=== PATIENT | female | born 1945 | race Caucasian/White ===

== ENCOUNTER → 2016-12-04 | Outpatient (CLI) | payer OTHER ==
[~2016-12-04] MED LIST: ACET-1257 PO; ACET-1311 PO; ASPEC81 PO; ASPI81TA28 PO; B-COTAB18 PO; BACL0.05 IT; CHOL20007 PO; DULO60CA44 PO; FERR1TAB24 PO; FEXO1TAB49 PO; FLUT0.15 NAE; GABA-113 PO; GLUCTAB32 PO; HYDR-3983 PO; KRIL1000 PO; LANS30CA12 PO; MELATAB2 PO; MORPHINE IR IT; MULT-506 PO; NABU750T PO; NICOTINE GUM PO; NRN100; ONDA8TAB6 PO; RXC5 PO; SIMV40TA4 PO; SNK PO; TRAZ50TA35 PO; [UNRECOGNIZED DRUG - CODE] IT
--- NOTE | 2016-12-04 16:41 | MAMMOGRAPHY REPORT ---
BILATERAL DIGITAL SCREENING MAMMOGRAM WITH CAD: 12/04/2016 CLINICAL HISTORY: Routine screening. Patient has no complaints. TECHNIQUE: Current study was also evaluated with a Computer Aided Detection (CAD) system. Bilatera l CC and MLO views were obtained. COMPARISON: Comparison is made to exams dated: 11/29/2015 mammogram, 11/21/2014 mammogram, 11/04/2012 mammogram - [facility], 02/03/2011 mammogram, and 03/15/2008 mammogram - [facility]. BREAST COMPOSITION: There are scattered areas of fibroglandular density in both breasts. FINDINGS: No suspicious masses, calcifications, or areas of architectural distortion are noted in e ither breast. There has been no significant interval change compared to prior exams. Bilateral eunice gn-appearing calcifications are not significantly changed. Nodular asymmetry in the left medial george ast is stable dating back to at least the 2010 exam. IMPRESSION: ACR BI-RADS CATEGORY 2: BENIGN There is no mammographic evidence of malignancy. A 1 year screening mammogram is recommended. The p atient will receive written notification of the results. Approximately 10% of breast cancers are not detected with mammography. A negative mammographic repor t should not delay biopsy if a clinically suggestive mass is present. Twyla Mejia M.D. ah/:12/04/2016 16:08:58 Size Mixer: Vika LYN(R)(M), [facility] letter sent: Normal 1/2 BI-RADS Code: ACR BI-RADS Category 2: Benign
== END | disposition home or self-care (01) ==
LOC: C.MAMM 15:24
PROVIDERS: ATTEND Internal Medicine
DX: Z12.31 Encounter for screening mammogram for malignant neoplasm of breast (principal)

== ENCOUNTER 2017-02-02 09:20 | Inpatient (IN) | payer OTHER ==
[2017-01-15 13:56] VITALS: BMI 28.0
--- NOTE | 2017-01-15 14:31 | PAT Medication Instructions ---
Service Date Jan 15, 2017. Current Home Medication List Acetaminophen (Tylenol), 650 MG PO Q6 Aspirin (Aspirin Ec), 81 MG PO QAM B-Complex Vitamins (Vitamin B Complex), 1 TAB PO QAM Baclofen (Lioresal Intrathecal), MCG IT DAILY Bupivacaine In Dextrose (Bupivacaine Spinal), 7.5 MG IT DAILY Cholecalciferol (Vitamin D3), 1 TAB PO QAM Duloxetine Hcl (Cymbalta), 120 MG PO QAM Ferrous Sulfate (Feosol), 1 TAB PO BID Fexofenadine Hcl (Denise Allergy), 1 TAB PO QAM Fluticasone Propionate (Nasal) (Flonase Allergy Relief), 1 SPRAY GUY QAM Gabapentin (Gabapentin), 100 BID Ovwipqysdro-Gfptnwsddpa-Cs Cho (Glucosamine Chondroitin &), 2 TABLETS PO QAM Hydrocodone/Acetaminophen 7.5MG/325MG ([place]view 7.5MG/325MG), 1 TAB PO Q4H PRN for prn Krill Oil (Krill Oil), 1 CAP PO QAM Lansoprazole (Prevacid), 30 MG PO QAM Melatonin (Melatonin Maximum Strengt), 1 TAB PO HS Multivitamin (Multivitamin), 1 TAB PO QAM Nabumetone (Nabumetone), 1 TAB PO BID Simvastatin (Zocor), 40 MG PO QPM Trazodone Hcl (Trazodone), 50 MG PO HS [Morphine Ir Soln], 1 DOSE IT DAILY [Nicotine Gum], 12-15 PIECE PO DAILY Medication Instructions For Your Scheduled Surgery - Continue as directed: Baclofen (Lioresal Intrathecal), MCG IT DAILY Bupivacaine In Dextrose (Bupivacaine Spinal), 7.5 MG IT DAILY [Morphine Ir Soln], 1 DOSE IT DAILY - Check with surgeon for instructions: Nabumetone (Nabumetone), 1 TAB PO BID - Hold the following medications 2 weeks prior to surgery: Krill Oil (Krill Oil), 1 CAP PO QAM Sgwktiroyap-Qfgpgihltyo-Pq Cho (Glucosamine Chondroitin &), 2 TABLETS PO QAM - Hold the following medications the morning of surgery: Multivitamin (Multivitamin), 1 TAB PO QAM Ferrous Sulfate (Feosol), 1 TAB PO BID Fexofenadine Hcl (Denise Allergy), 1 TAB PO QAM Cholecalciferol (Vitamin D3), 1 TAB PO QAM B-Complex Vitamins (Vitamin B Complex), 1 TAB PO QAM [Nicotine Gum], 12-15 PIECE PO DAILY - Take the following medications the morning of surgery with a sip of water: Gabapentin (Gabapentin), 100 BID Fluticasone Propionate (Nasal) (Flonase Allergy Relief), 1 SPRAY GUY QAM Lansoprazole (Prevacid), 30 MG PO QAM Duloxetine Hcl (Cymbalta), 120 MG PO QAM Hydrocodone/Acetaminophen 7.5MG/325MG ([place]view 7.5MG/325MG), 1 TAB PO Q4H PRN for prn (okay to take up to 4 hours prior to surgery if needed) Aspirin (Aspirin Ec), 81 MG PO QAM Acetaminophen (Tylenol), 650 MG PO Q6 - Take the following medications as scheduled the night before surgery: Trazodone Hcl (Trazodone), 50 MG PO HS Simvastatin (Zocor), 40 MG PO QPM Melatonin (Melatonin Maximum Strengt), 1 TAB PO HS Gabapentin (Gabapentin), 100 BID Ferrous Sulfate (Feosol), 1 TAB PO BID Hydrocodone/Acetaminophen 7.5MG/325MG ([place]view 7.5MG/325MG), 1 TAB PO Q4H PRN for prn Acetaminophen (Tylenol), 650 MG PO Q6 If you have any questions please call us at [phone] (Sandra Lu PA-C) or [phone] or [phone]
[2017-01-15 14:51] LABS: BASO ABS # 0.05 K/uL (0-0.2); COMPLETE YES; HEMATOCRIT 38.2 % (37-47); LYMPH % 21.3 %; LYMPH ABS # 1.07 K/uL (1.2-3.4); MEAN CELL VOLUME 91.8 fL (80-100); MEAN CORPUSCULAR HEMOGLOBIN 30.3 pg (25-34); MEAN PLATELET VOLUME 10.2 fL (7.4-10.4); MONO % 7.2 %; NEUT % 68.5 %; PLATELET COUNT 245 K/uL (130-400); RED BLOOD COUNT 4.16 M/uL (4.2-5.4); WHITE BLOOD COUNT 5.02 K/uL (4.8-10.8)
[2017-01-15 15:01] LABS: PROTHROMBIN TIME (PATIENT) 10.5 SECONDS (9.0-12.0)
--- NOTE | 2017-01-15 15:05 | DIAGNOSTIC IMAGING REPORT ---
CHEST 2 VIEWS ROUTINE HISTORY: Preop. COMPARISON: Chest 09/25/2015 FINDINGS: The lungs are clear. Cardiac silhouette is normal in size. No pleural effusions. No pneumothorax. Stable uterine trace of the right hemidiaphragm. Mild anterior wedging within the lower thoracic spine vertebral bodies is also unchanged. There is lumbar spine posterior fusion hardware which is partially visualized. IMPRESSION: No significant change compared to the prior study. No acute process. Electronically signed by: Abundio Ansari M.D. 01/15/2017 3:03 PM Dictated Date/Time: 01/15/2017 3:00 PM
[2017-01-15 15:09] LABS: BUN/CREATININE RATIO 23.9 (10-20); CREATININE 0.74 mg/dl (0.60-1.20); POTASSIUM 4.7 mmol/L (3.5-5.1)
[2017-01-15 15:12] LABS: URINE APPEARANCE CLEAR (CLEAR); URINE BILIRUBIN NEG (NEG); URINE COLOR YELLOW; URINE NITRITE NEG (NEG); URINE PH 7.5 (4.5-7.5); URINE SPECIFIC GRAVITY 1.019 (1.000-1.030); UROBILINOGEN NEG (NEG); ZZUR CULT IF INDIC CLEAN CATCH NO
[2017-01-15 15:15] LABS: MANUAL MICROSCOPIC REQUIRED? NO; REVIEW REQ? NO
--- NOTE | 2017-01-27 08:57 | HISTORY & PHYSICAL EXAMINATION ---
DATE OF ADMISSION: 02/02/2017 CHIEF COMPLAINT: Right hip pain. HISTORY OF PRESENT ILLNESS: Ms. Henry is a 71-year-old female with a history of pain in her right hip since October. The patient rates her pain at 9/10. She has pain with her daily activities. She has limited standing and walking tolerance. Pain is worse with weightbearing. The patient does use a walker to ambulate. She participates in a home exercise program as well as aqua therapy. She has failed conservative treatment and is scheduled for right hip replacement. PAST MEDICAL HISTORY: Spinal stenosis, hypercholesterolemia, anxiety, and a history of DVT, right lower extremity in 2001. She denies heart disease or diabetes. PAST SURGICAL HISTORY: Left hip in 2015; right knee in 2001; back surgery in 2005, 2006, and 2010; cholecystectomy in 1975, and cataract extraction, bilateral in 2000. SOCIAL HISTORY: The patient drinks 1-2 drinks per month. She quit smoking in 1991. She lives in a single-jignesh home. She lives alone and is retired. FAMILY HISTORY: Negative for DVT. MEDICATIONS: Denise 180 mg daily, aspirin 81 mg daily, vitamin B complex 1 capsule daily, duloxetine 60 mg 2 tablets daily, gabapentin 100 mg twice daily and 300 mg twice daily, glucosamine chondroitin 1 tablet daily, hydrocodone 7.5/300 mg p.r.n., iron capsule twice daily, Krill oil capsule daily, lansoprazole 30 mg daily, baclofen 22.21 mcg daily, melatonin 5 mg at bedtime, morphine sulfate IR pump, nabumetone 750 mg b.i.d., Nasonex 50 mcg 2 sprays each nostril, multivitamin 1 daily, simvastatin 40 mg daily, bowel prep p.r.n., trazodone 50 mg daily, Tylenol 500 mg p.r.n., and vitamin D 2000 units daily. ALLERGIES: SULFA AND LATEX. REVIEW OF SYSTEMS: See HPI. Ten other systems reviewed, all negative. PHYSICAL EXAMINATION: VITAL SIGNS: Height 5 feet 7 inches, weight 183 pounds, and BMI is 27. GENERAL: This is a well-developed and well-nourished female, who is alert and oriented x3. Mood and affect are appropriate. HEENT: Normocephalic and atraumatic. Mucous membranes are moist and intact. NECK: Supple without lymphadenopathy. HEART: Regular rate and rhythm. She does have a grade 2 systolic murmur. LUNGS: Clear to auscultation without wheezes or rhonchi. ABDOMEN: Soft and nontender. Bowel sounds are equal and active. EXTREMITIES: No ecchymosis, redness or warmth. Thigh and calf are soft and nontender. Log roll of the hip reproduces the pain in the groin. Range of motion is decreased. She is neurovascularly intact with +5/5 strength. X-RAY EXAMINATION: AP and lateral views show joint space narrowing and osteophyte formation. IMPRESSION: Degenerative joint disease, right hip. PLAN: The patient will be admitted for a right total hip arthroplasty. We will plan on aspirin for DVT prophylaxis. The patient will have [facility] for home physical therapy. She is on chronic narcotics and also has a pain pump. PCP is Dr. Gunner Garcia. JOSÉ LUIS
[~2017-02-02] VITALS: Ht 172.7 cm; Wt 83.1 kg
[2017-02-02] VITALS (8 sets, daily range): BP systolic 77–110; BP diastolic 54–83; PULSE 68–81; TEMP 36.5–36.9; O2SAT 93–100; Ht 172.7 cm; Wt 83.1 kg
[2017-02-02] MEDS: TRANEXAMIC ACID INJ 1,000 MG in SODIUM CHLORIDE 0.9% 100ML 100 ML IV SCH ×2 (06:30→11:52)
[~2017-02-02 09:20] MED LIST changes: -ACET-1257 PO; +ACETAMINOPHEN 500 MG TAB PO SCH; -ASPEC81 PO; +BUPIVACAINE 0.5 % 5 MG/1 ML PF 10ML VIAL ONE; +CEFAZOLIN 2000 MG/60 ML D5W 60 ML IV SCH; +DEXAMETHASONE 4 MG TAB PO SCH; +FAMOTIDINE 20 MG TAB PO SCH; -GABA-113 PO; +GABAPENTIN 300 MG CAP PO SCH; +LACTATED RINGER'S 1000ML 1,000 ML IV SCH; +LACTATED RINGER'S 1000ML 500 ML IV ONE; +LACTATED RINGER'S 1000ML IV SCH; +METOCLOPRAMIDE HCL 10 MG TAB PO SCH; -ONDA8TAB6 PO; +OXYCODONE HCL 10 MG TABCR (OXYCONTIN) PO SCH; +POLYMYXIN B SULFATE 100,000 UNITS in NSS 100ML IR SCH; +ROPIVACAINE 5MG/ML 30 ML 150 MG, BUPIVACAINE/EPINEPHR 0.5% MPF 30 ML, KETOROLAC TROMETH... INFIL SCH; -RXC5 PO; -SNK PO; +VANCOMYCIN INJ 400 MG in NSS 100ML IR SCH
[2017-02-02] MEDS ORDERED: MIDAZOLAM HCL 1 MG/ML 2ML VIAL ONE (10:10)
[2017-02-02] MEDS ORDERED: FENTANYL CITRATE INJ 50 MCG/1 ML 2 ML VIAL ONE ×2 (10:10→12:46)
[2017-02-02] MEDS ORDERED: ONDANSETRON INJ 2 MG/ML 2 ML VIAL ONE (10:10)
[2017-02-02] MEDS ORDERED: PROPOFOL IV EMULSION 10 MG/ML 20 ML VIAL IV ONE (10:10)
[2017-02-02] MEDS ORDERED: GABA-113 PO (10:10)
[2017-02-02] MEDS ORDERED: LIDOCAINE HCL 2% 2 ML VIAL (20MG/ML) ONE (10:10)
--- NOTE | 2017-02-02 11:15 | History & Physical Bridge Note ---
H&P Re-Evaluation Bridge Note: I have examined the patient, reviewed the History & Physical and in the interval since the performance of the History & Physical I have noted the following changes of clinical significance: No changes noted
[2017-02-02] MEDS ORDERED: BACITRACIN 50000 UNIT VIAL ONE (11:46)
[2017-02-02] MEDS ORDERED: ORTHO JOINT ANESTHETIC ONE (11:46)
[2017-02-02] MEDS ORDERED: POVIDONE-IODINE OP SOLN 30 ML BTL ONE (11:46)
[2017-02-02] MEDS ORDERED: HYDROmorphone INJ 2 MG/ML SYR/VIAL IV PRN (12:30)
[2017-02-02] MEDS ORDERED: LABETALOL HCL IV 5 MG/ML 20ML IV PRN (12:30)
[2017-02-02] MEDS ORDERED: KETOROLAC TROMETHAMINE 30 MG/ML VIAL IV. PRN (12:30)
[2017-02-02] MEDS ORDERED: PROMETHAZINE HCL INJ 6.25 MG in SODIUM CHLORIDE 0.9% 50ML 50 ML IV PRN (12:30)
[2017-02-02] MEDS ORDERED: ATROPINE SULFATE 0.1 MG/ML 5ML SYR IV PRN (12:30)
[2017-02-02] MEDS ORDERED: ONDANSETRON INJ 2 MG/ML 2 ML VIAL IV PRN ×2 (12:30→14:15)
[2017-02-02] MEDS ORDERED: GLYCOPYRROLATE INJ 0.2 MG/ML VIAL ONE (13:07)
[2017-02-02] MEDS ORDERED: ROCURONIUM BROMIDE 10 MG/ML 5 ML VIAL ONE (13:07)
[2017-02-02] MEDS ORDERED: NEOSTIGMINE METHYLSULFATE 5 MG/5 ML SYR ONE (13:07)
[2017-02-02] MEDS ORDERED: HYDROmorphone INJ 2 MG/ML SYR/VIAL ONE (13:07)
--- NOTE | 2017-02-02 14:03 | [facility] Post Operative Brief Note ---
Immediate Operative Summary Operative Date Feb 02, 2017. Pre-Operative Diagnosis Right hip degenerative joint disease Post-Operative Diagnosis Right hip degenerative joint disease Procedure(s) Performed Right total hip arthroscopy with anterior approach Surgeon Dr. Javi Masters Paper Cleaner Surgeon(s) Amy Mercado PA-C Estimated Blood Loss 150ML Findings SEVERE DZ Specimens A: Right femoral head Complication(s) None Disposition Recovery Room / PACU
[2017-02-02] MEDS ORDERED: ACETAMINOPHEN 325 MG TAB PO PRN (14:15)
[2017-02-02] MEDS ORDERED: ALUMINUM/MAGNESIUM/SIMETH (MAALOX MAX) 30 ML UDC PO PRN (14:15)
[2017-02-02] MEDS ORDERED: ZOLPIDEM TARTRATE 5 MG TAB PO PRN (14:15)
[2017-02-02] MEDS ORDERED: DiphenhydrAMINE HCL 50 MG/ML VIAL IV PRN (14:15)
[2017-02-02] MEDS ORDERED: BISACODYL 10 MG SUPP PR PRN (14:15)
[2017-02-02] MEDS ORDERED: HYDROCODONE/ACETAMINOPHEN 7.5/325MG TAB PO PRN (14:15)
[2017-02-02] MEDS ORDERED: MAGNESIUM HYDROXIDE SUSP 30 ML UDC PO PRN (14:15)
[2017-02-02] MEDS ORDERED: METOCLOPRAMIDE HCL INJ 5 MG/ML 2 ML VIAL IV PRN (14:15)
[2017-02-02] MEDS ORDERED: SOD PHOSPHATE/SOD BIPHOSPHATE ENEMA 132 ML BTL PR PRN (14:15)
[2017-02-02] MEDS ORDERED: MoRPHine SULFATE 2 MG/ML CARP IV PRN (14:15)
[2017-02-02] MEDS ORDERED: TRAMADOL HCL 50 MG TAB PO PRN (14:15)
--- NOTE | 2017-02-02 14:20 | DIAGNOSTIC IMAGING REPORT ---
INTRAOPERATIVE RADIOGRAPH CLINICAL HISTORY: Right hip arthroplasty. Fluoroscopy time: 12 seconds. FINDINGS: A single spot fluoroscopic view of the right hip is presented. A bipolar right hip arthroplasty is in near-anatomic alignment. A single cortical lag screw transfixes the acetabular cup. There is no evidence of fracture on this fluoroscopic image. IMPRESSION: Intraoperative image from a right hip arthroplasty procedure as above. Electronically signed by: Danyel Means M.D. 02/02/2017 2:18 PM Dictated Date/Time: 02/02/2017 2:17 PM
[2017-02-02] MEDS ORDERED: HYDROmorphone INJ 1 MG/ML SYR ONE (14:37)
[2017-02-02] MEDS ORDERED: KETOROLAC TROMETHAMINE 30 MG/ML VIAL ONE (14:37)
--- NOTE | 2017-02-02 15:02 | DIAGNOSTIC IMAGING REPORT ---
RIGHT PELVIS/UNILATERAL HIP 1 VIEW CLINICAL HISTORY: Right hip arthroplasty COMPARISON: Pelvis radiograph June 16, 2016. FINDINGS: Alignment of the total right hip arthroplasty is anatomic. There is no right periprosthetic fracture or unexpected radiopaque foreign body. There is an acetabular screw. Surgical drain is in place. Alignment of the left hip arthroplasty is anatomic. There is a transverse lucency suggestive of a fracture with associated sclerosis and callus formation within the greater trochanter of the left femur. There is heterotopic ossification adjacent to the left hip arthroplasty. IMPRESSION: 1. Expected findings following total right hip arthroplasty. 2. Suspected subacute to chronic transverse nondisplaced fracture of the greater trochanter of the left femur. Anatomic alignment of left hip arthroplasty. Electronically signed by: Jacob Trejo M.D. 02/02/2017 3:01 PM Dictated Date/Time: 02/02/2017 2:59 PM
--- NOTE | 2017-02-02 15:16 | Anesthesiology Progress Note ---
Anesthesia Post Op Note Date & Time Feb 02, 2017 at 15:16 Vital Signs Pain Intensity: 3 Vital Signs Past 12 Hours Date Time Temp Pulse Resp B/P Pulse Ox O2 Delivery O2 Flow Rate FiO2 02/02/17 15:05 83 14 136/78 93 Nasal Cannula 2 02/02/17 14:55 80 14 141/88 98 Nasal Cannula 2 02/02/17 14:45 83 14 145/99 97 Nasal Cannula 2 02/02/17 14:35 84 14 146/86 98 Mask 8 02/02/17 14:28 36.5 80 14 151/74 98 Mask 8 02/02/17 09:48 36.7 73 20 106/83 95 Room Air Notes Mental Status: alert / awake / arousable, participated in evaluation Pt Amnestic to Procedure: Yes Nausea / Vomiting: adequately controlled Pain: adequately controlled Airway Patency, RR, SpO2: stable & adequate BP & HR: stable & adequate Hydration State: stable & adequate Anesthetic Complications: no major complications apparent
--- NOTE | 2017-02-02 15:28 | Anesthesiology Progress Note ---
Anesthesia Post Op Note Date & Time Feb 02, 2017 at 15:28 Vital Signs Pain Intensity: 5 Vital Signs Past 12 Hours Date Time Temp Pulse Resp B/P Pulse Ox O2 Delivery O2 Flow Rate FiO2 02/02/17 15:15 36.4 86 14 117/60 94 Nasal Cannula 2 02/02/17 15:05 83 14 136/78 93 Nasal Cannula 2 02/02/17 14:55 80 14 141/88 98 Nasal Cannula 2 02/02/17 14:45 83 14 145/99 97 Nasal Cannula 2 02/02/17 14:35 84 14 146/86 98 Mask 8 02/02/17 14:28 36.5 80 14 151/74 98 Mask 8 02/02/17 09:48 36.7 73 20 106/83 95 Room Air Notes Mental Status: alert / awake / arousable, participated in evaluation Pt Amnestic to Procedure: Yes Nausea / Vomiting: adequately controlled Pain: adequately controlled Airway Patency, RR, SpO2: stable & adequate BP & HR: stable & adequate Hydration State: stable & adequate Anesthetic Complications: no major complications apparent
--- NOTE | 2017-02-02 15:34 | OPERATIVE REPORT ---
DATE OF OPERATION: 02/02/2017 PREOPERATIVE DIAGNOSIS: Degenerative arthritis, right hip. POSTOPERATIVE DIAGNOSIS: Same. PROCEDURE: Right total hip replacement. SURGEON: mC Masters MD COMMISSIONING MANAGER: MAUDE Atwood. ANESTHESIA: Spinal. BLOOD LOSS: 150 mL. REPLACEMENT FLUIDS: 1900 mL crystalloid. DRAINS: Hemovac x1. CULTURES: None. COMPLICATIONS: None. COMPONENTS USED: Licona \T\ Nephew Anthology hip system: Acetabulum size 52, femur size 8 standard offset, femoral head -3, 36 mm. NOTE: Amy Mercado was present and assisted throughout due to the complicated nature of this case. She helped with preparation and setup, first assisted throughout and personally closed the fascial, subcutaneous and skin layers and applied the postoperative dressing. DESCRIPTION: Following satisfactory spinal, the patient was supine. The right leg was placed in the traction device and the left leg in the well-leg hudson. The leg was prepared with ChloraPrep and draped sterilely. Following a surgical time-out, an anterior approach was performed in the interval between the sartorius and tensor muscles. Circumflex femoral vessels were identified and ligated. An anterior capsulotomy was performed, exposing the arthritic femoral neck and head. The approach was somewhat difficult. The patient had an extremely thickened fascial layer and was quite scarred in. The circumflex vessels were ligated, the anterior capsulotomy was opened and the severely arthritic femoral neck and head were trimmed and removed. The acetabular self-retraining retractor was placed. Acetabular reaming was completed and under fluoroscopic guidance, a 52 shell was impacted into an anatomic position and secured with a dome screw. Local anesthetic was placed and after irrigation, the poly liner was placed. The femur was then placed in a position of external rotation, extension and adduction. Femoral canal was prepared to the templated size of an 8. A trial reduction with a -3 head showed anabaptism of leg lengths using fluoroscopic landmarks and good fit and fill of the proximal canal under fluoroscopy. The hip was dislocated. The trial component was removed. Final implant was placed and after irrigation, the hip reduced with fluoroscopy, confirming the position. Betadine soak was performed. After 5 minutes, the Betadine was irrigated. The capsule was closed with 1-0 Vicryl interrupted. A drain was placed. The fascia was closed with a running suture of 1 Vicryl, the subcutaneous tissues with 2-0 Vicryl and the skin with a running subcuticular stitch of 3-0 V-Loc. Dermabond and dry dressing were applied. The patient was returned to her bed in stable condition. I attest to the content of the Intraoperative Record and any orders documented therein. Any exceptio ns are noted below.
[2017-02-02] MEDS: OXYCODONE HCL IR 5 MG TAB (IMMEDIATE RELEASE) PO PRN ×2 (16:19→20:12)
[2017-02-02] MEDS: D5W AND 1/2NSS + 20MEQ KCL 1,000 ML IV SCH (17:28)
[2017-02-02] MEDS: SIMVASTATIN 40 MG TAB PO SCH (20:13)
[2017-02-02] MEDS: ASPIRIN 81 MG ECTAB PO SCH (20:13)
[2017-02-02] MEDS: SENNA 8.6 MG TAB PO SCH (20:14)
[2017-02-02] MEDS: KETOROLAC TROMETHAMINE 15 MG/ML VIAL IV. SCH (20:20)
[2017-02-02] MEDS: CEFAZOLIN IV 2,000 MG in DEXTROSE 5% 50ML 50 ML IV SCH (20:20)
[2017-02-02] MEDS ORDERED: TRANEXAMIC ACID INJ 1,000 MG in SODIUM CHLORIDE 0.9% 100ML 100 ML IV SCH (20:30)
[2017-02-02] MEDS: GABAPENTIN 300 MG CAP PO SCH (22:25)
[2017-02-03] VITALS (11 sets, daily range): BP systolic 63–99; BP diastolic 35–64; PULSE 68–85; TEMP 36.8–37.2; O2SAT 84–96
[2017-02-03] MEDS: TRAZODONE HCL 50 MG TAB PO SCH ×2 (00:09→23:37)
[2017-02-03] MEDS: D5W AND 1/2NSS + 20MEQ KCL 1,000 ML IV SCH ×2 (02:06→12:57)
[2017-02-03] MEDS: KETOROLAC TROMETHAMINE 15 MG/ML VIAL IV. SCH ×4 (02:07→21:27)
[2017-02-03] MEDS: CEFAZOLIN IV 2,000 MG in DEXTROSE 5% 50ML 50 ML IV SCH (04:25)
[2017-02-03] MEDS: GABAPENTIN 300 MG CAP PO SCH ×3 (05:42→21:32)
[2017-02-03 05:45] LABS: BASO % 0.1 %; BASO ABS # 0.01 K/uL (0-0.2); HEMATOCRIT 25.3 % (37-47); IG% 0.2 %; LYMPH % 7.1 %; LYMPH ABS # 0.86 K/uL (1.2-3.4); MEAN CORPUSCULAR HEMOGLOBIN 30.2 pg (25-34); MEAN CORPUSCULAR HGB CONC 33.2 g/dl (32-36); MEAN PLATELET VOLUME 10.4 fL (7.4-10.4); MONO % 7.5 %; NEUT % 85.1 %; PLATELET COUNT 253 K/uL (130-400); RED BLOOD COUNT 2.78 M/uL (4.2-5.4); WHITE BLOOD COUNT 12.04 K/uL (4.8-10.8)
[2017-02-03 06:12] LABS: BUN/CREATININE RATIO 16.9 (10-20); CALCIUM 8.3 mg/dl (8.5-10.1); CREATININE 0.86 mg/dl (0.60-1.20); POTASSIUM 5.1 mmol/L (3.5-5.1)
[2017-02-03 07:25] LABS: COMPLETE YES
--- NOTE | 2017-02-03 07:47 | Clinical Documentation Query ---
SHELL MorganH : CLINICAL DOCUMENTATION QUERY Patient is a 71 year old female who on 02/02 underwent right total hip replacement. Preoperative hemoglobin and hematocrit were 12.6 g/dl and 38.2%. POD #1, repeat values are 8.4 g/dl and 25.3%. EBL for the procedure was 150 ml's with subsequently documented losses totaling an additional 65 ml's to date. Additionally, I/O is net positive for 3,300 ml's at this time. As clinically appropriate, consider clarification as suggested below. Thank you. In your clinical opinion is this patient being managed for: ( x ) Acute blood loss and hemodilutional anemia ( ) Other explanation of clinical findings (Please Explain) ( ) Unable to determine (Please Define) ( ) Need to Discuss ( ) Not Agree The medical record reflects the following clinical findings, treatment, and risk factors. Clinical Indicators: As above Treatment: Serial hematology, I/O including drain outputs. Risk Factors: Acute perioperative blood losses, IVF administration. Please clarify and document your clinical opinion in the progress notes and discharge summary. Terms such as "probable", "suspected", "likely", "questionable", "possible", or "still to be ruled out" are acceptable. IF IN AGREEMENT, YOU MUST DOCUMENT ABOVE DIAGNOSTIC STATEMENT IN DAILY PROGRESS NOTES AND DISCHARGE SUMMARY. This document is not part of the patient's record. Thank You, Murali Santana, SAGAR [phone]
[2017-02-03] MEDS: PANTOprazole SOD 40 MG TAB PO SCH (08:51)
[2017-02-03] MEDS: MULTIVITAMIN TAB PO SCH (08:51)
[2017-02-03] MEDS: FLUTICASONE PROPIONATE NA SPR 16 GM BTL NAE SCH ×2 (08:51→23:36)
[2017-02-03] MEDS: ASPIRIN 81 MG ECTAB PO SCH ×2 (08:51→21:33)
[2017-02-03] MEDS: FEXOFENADINE HCL 180 MG TAB PO SCH (08:52)
[2017-02-03] MEDS: DULOXETINE HCL 60 MG CAP PO SCH (08:52)
--- NOTE | 2017-02-03 09:54 | Orthopedic Progress Note ---
Orthopedic Progress Note Date of Service Feb 03, 2017. Subjective Post OP Day: 1 Reports: feeling well, Denies: SOB, calf pain, chest pain, light headedness, nausea / vomiting Additional Notes: SYSTOLICS IN THE 80S. PATIENT IS COMPLETELY ASYMPTOMATIC. BASELINE BP IS IN THE 100s. SIMILAR THINGS HAPPENED WITH HER LAST SOFIA. Objective calves soft nontender, N/V intact, hip located, dressing C/D/I, A&O x3, toes mobile, hemovac drainage (35/30CC PER SHIFT) Date Time Temp Pulse Resp B/P Pulse Ox O2 Delivery O2 Flow Rate FiO2 02/03/17 08:50 78 81/48 02/03/17 07:22 87/50 94 Nasal Cannula 2.0 02/03/17 07:21 36.8 69 16 78/44 84 Room Air 02/03/17 07:10 Room Air 02/03/17 04:22 75 93/54 02/03/17 04:18 85 87/54 02/03/17 03:39 36.9 68 14 77/55 94 Room Air 63/35 02/03/17 00:05 Room Air 02/02/17 23:14 36.9 68 18 95/65 93 Room Air 02/02/17 22:35 100 Nasal Cannula 3.0 02/02/17 18:52 94/58 02/02/17 18:44 36.7 70 16 77/57 100 Nasal Cannula 2.5 02/02/17 17:45 36.6 80 16 84/54 100 Nasal Cannula 2.0 02/02/17 16:45 36.5 81 16 80/55 97 Nasal Cannula 2.0 02/02/17 16:15 36.5 71 16 110/70 100 Nasal Cannula 2.0 02/02/17 15:45 94 Nasal Cannula 2.0 02/02/17 15:25 36.4 79 14 118/65 94 Nasal Cannula 2 02/02/17 15:15 36.4 86 14 117/60 94 Nasal Cannula 2 02/02/17 15:05 83 14 136/78 93 Nasal Cannula 2 02/02/17 14:55 80 14 141/88 98 Nasal Cannula 2 02/02/17 14:45 83 14 145/99 97 Nasal Cannula 2 02/02/17 14:35 84 14 146/86 98 Mask 8 02/02/17 14:28 36.5 80 14 151/74 98 Mask 8 Laboratory Results 24 Hours: Test 02/03/17 04:50 White Blood Count 12.04 K/uL Red Blood Count 2.78 M/uL Hemoglobin 8.4 g/dL Hematocrit 25.3 % Mean Corpuscular Volume 91.0 fL Mean Corpuscular Hemoglobin 30.2 pg Mean Corpuscular Hemoglobin Concent 33.2 g/dl Platelet Count 253 K/uL Mean Platelet Volume 10.4 fL Neutrophils (%) (Auto) 85.1 % Lymphocytes (%) (Auto) 7.1 % Monocytes (%) (Auto) 7.5 % Eosinophils (%) (Auto) 0.0 % Basophils (%) (Auto) 0.1 % Neutrophils # (Auto) 10.24 K/uL Lymphocytes # (Auto) 0.86 K/uL Monocytes # (Auto) 0.90 K/uL Eosinophils # (Auto) 0.00 K/uL Basophils # (Auto) 0.01 K/uL Assessment & Plan Assessment: POD#1 SP RIGHT SOFIA, DIRECT ANTERIOR Inhouse Planning Pain Management: PO Tylenol, Oxy IR DVT Prophylaxis: TEDs, SCDs, ASA Discharge Planning Discharge Planning: home with home health ([facility] DC TO HOME THURSDAY)
--- NOTE | 2017-02-03 10:53 | Anesthesiology Progress Note ---
Anesthesia Post Op Note Date & Time Feb 03, 2017 at 10:52 Vital Signs Pain Intensity: 0.0 Vital Signs Past 12 Hours Date Time Temp Pulse Resp B/P Pulse Ox O2 Delivery O2 Flow Rate FiO2 02/03/17 10:09 80 94/61 02/03/17 08:50 78 81/48 02/03/17 07:22 87/50 94 Nasal Cannula 2.0 02/03/17 07:21 36.8 69 16 78/44 84 Room Air 02/03/17 07:10 Room Air 02/03/17 04:22 75 93/54 02/03/17 04:18 85 87/54 02/03/17 03:39 36.9 68 14 77/55 94 Room Air 63/35 02/03/17 00:05 Room Air 02/02/17 23:14 36.9 68 18 95/65 93 Room Air Notes Mental Status: alert / awake / arousable, participated in evaluation Pt Amnestic to Procedure: Yes Nausea / Vomiting: adequately controlled Pain: adequately controlled Airway Patency, RR, SpO2: stable & adequate BP & HR: stable & adequate Hydration State: stable & adequate Neuraxial Anesthesia: sensory block resolved Anesthetic Complications: no major complications apparent
[2017-02-03] MEDS: OXYCODONE HCL IR 5 MG TAB (IMMEDIATE RELEASE) PO PRN (18:34)
[2017-02-03] MEDS: SIMVASTATIN 40 MG TAB PO SCH (21:33)
[2017-02-03] MEDS: SENNA 8.6 MG TAB PO SCH (21:33)
[2017-02-04] MEDS: KETOROLAC TROMETHAMINE 15 MG/ML VIAL IV. SCH ×2 (02:12→07:50)
[2017-02-04] MEDS: GABAPENTIN 300 MG CAP PO SCH ×2 (05:44→13:37)
[2017-02-04 06:33] VITALS: BP 91/60; PULSE 84; TEMP 37.1; O2SAT 95
[2017-02-04] MEDS: FLUTICASONE PROPIONATE NA SPR 16 GM BTL NAE SCH (07:47)
[2017-02-04] MEDS: MULTIVITAMIN TAB PO SCH (07:48)
[2017-02-04] MEDS: FEXOFENADINE HCL 180 MG TAB PO SCH (07:48)
[2017-02-04] MEDS: DULOXETINE HCL 60 MG CAP PO SCH (07:48)
[2017-02-04] MEDS: ASPIRIN 81 MG ECTAB PO SCH (07:49)
[2017-02-04] MEDS: PANTOprazole SOD 40 MG TAB PO SCH (07:49)
[2017-02-04 07:54] VITALS: BP 110/68; PULSE 88; TEMP 37.2; O2SAT 96
--- NOTE | 2017-02-04 08:32 | Orthopedic Progress Note ---
Orthopedic Progress Note Date of Service Feb 04, 2017. Subjective Post OP Day: 2 Reports: feeling well, Denies: SOB, calf pain, chest pain, light headedness, nausea / vomiting Objective calves soft nontender, N/V intact, hip located, dressing C/D/I, A&O x3, toes mobile Date Time Temp Pulse Resp B/P Pulse Ox O2 Delivery O2 Flow Rate FiO2 02/04/17 07:54 37.2 88 17 110/68 96 Room Air 02/04/17 06:33 37.1 84 16 91/60 95 Room Air 02/03/17 23:51 Room Air 02/03/17 23:22 37.2 82 14 96/61 96 Room Air 02/03/17 22:18 94 Room Air 02/03/17 15:20 37.1 80 16 99/64 94 Room Air 02/03/17 11:01 77 95 02/03/17 10:09 80 94/61 02/03/17 08:50 78 81/48 Assessment & Plan Assessment: POD#2 SP RIGHT SOFIA, DIRECT ANTERIOR Inhouse Planning Pain Management: PO Tylenol, Oxy IR DVT Prophylaxis: TEDs, SCDs, ASA Discharge Planning Discharge Planning: home with home health ([facility] DC TO HOME THURSDAY)
--- NOTE | 2017-02-04 08:34 | Discharge Instructions ---
Discharge Instructions Date of Service Feb 04, 2017. Admission Reason for Admission: Right Hip Degenerative Arthritis Discharge Discharge Diagnosis / Problem: SP RIGHT TOTAL HIP Discharge Goals Goal(s): Decrease discomfort, Improve function, Increase independence Activity Recommendations Activity Limitations: per Instructions/Follow-up section . Instructions / Follow-Up Instructions / Follow-Up ACTIVITY RECOMMENDATIONS: SELF CARE INSTRUCTIONS AFTER TOTAL HIP REPLACEMENT : Direct Anterior Approach Until the incision and soft tissues around your hip have healed, there is a possibility that the hip prosthesis could dislocate. A. Hip flexion ( Up & Down out of chair or steps ) may be difficult. This is normal. B. Numbness in front of the thigh is also normal for a few weeks. C. Use hand rails when walking on stairs. D. Wear low heeled shoes with non-slip soles. E. Be sure that your floors are free of things that could trip you - throw rugs , electrical cords, small objects. Avoid wet and waxed floors, especially with crutches and canes. F. Try to walk several times a day with rest periods between. G. Continue with all the exercises taught to you in the hospital. Again, make walking a part of your daily routine. SPECIAL CARE INSTRUCTIONS: VERY IMPORTANT TO READ AND REVIEW A. You may still be at risk for phlebitis and blood clots. 1. Wear surgical stockings (ANDREA hose) for 2 weeks after surgery to improve circulation and reduce swelling. 2. Take Aspirin 81mg twice daily for 4 weeks or as directed by your doctor. This is your blood thinner. 3. High risk patients may be prescribed a stronger blood thinner if necessary. 4. If you are on Coumadin normally, your family doctor/supervisor core shop should monitor your blood work. Expect a phone call the day of or the day after bloodwork is drawn to adjust your dosage. B. You must take antibiotics before having dental work, bladder, bowel and other surgery. Your doctor will provide you with a permanent card to carry describing precautions. C. Call [facility] if you have a fever, redness or swelling around the incision, cloudy drainage from incision, or sudden increase in pain in your hip, not relieved by your regular pain medication. D. Please call the office at if you have any concerns or questions about your operation or recovery. * YOU MAY SHOWER, NO TUB BATHS UNTIL CLEARED BY YOUR DOCTOR. - Keep an extra close eye on the top portion of your incision. Be sure to keep clean & dry. * WEAR ANDREA HOSE 20 HOURS PER DAY FOR 2 WEEKS. * YOU MAY PROGRESS FROM A WALKER, TO A CANE, TO INDEPENDENT AT YOUR OWN PACE. * MOST PATIENTS WILL HAVE HOME NURSING FOR THERAPY. IF YOU DECIDE TO DO OUTPATIENT PHYSICAL THERAPY, PLEASE SCHEDULE THIS 3 TIMES PER WEEK. * DERMABOND Prineo- This is a mesh tape dressing that is covered with glue. It should remain in place until the incision is properly healed, usually 10-14 days. This dressing is designed to naturally slough off. You may trim the excess mesh tape as it peels off. Incision may be briefly wet in a shower. Dry immediately by blotting with a clean, dry towel. Do not bath or swim until instructed by your doctor. Do not scratch, rub, or pick at the dressing. Do not apply any topical ointments or lotions until dressing is completely removed and/or instructed by your doctor. There may be a small piece of suture material at one end of your incision. Do not pull or trim this. If it is bothersome or catching on clothing, you may cover it with a band-aid. FOLLOW UP VISIT: If appointment is not already scheduled: Please call [facility] to make a follow-up appointment for 2 weeks after your surgery at . Current Hospital Diet Patient's current hospital diet: Regular Diet Discharge Diet Recommended Diet: Regular Diet Procedures Procedures Performed: Right total hip arthroscopy with anterior approach Pending Studies Studies pending at discharge: no Medical Emergencies . Who to Call and When: Medical Emergencies: If at any time you feel your situation is an emergency, please call 911 immediately. . Non-Emergent Contact Non-Emergency issues call your: Surgeon . "Provider Documentation" section prepared by Amy Mercado. VTE Core Measure Inpt VTE Proph given/why not?: Other Anticoagulation, T.E.D. Kizzy, SCD's [place] Drug Monitoring Program Search Results: patient reviewed within database, no issues identified
[2017-02-04] MEDS ORDERED: RXC5 PO (08:39)
[2017-02-04] MEDS ORDERED: ONDA8TAB6 PO (08:39)
[2017-02-04] MEDS ORDERED: ACET-1257 PO (08:39)
[2017-02-04] MEDS ORDERED: ASPI81TA28 PO (08:39)
[2017-02-04] MEDS ORDERED: SNK PO (08:39)
[2017-02-04 08:44] VITALS: O2SAT 96
[2017-02-04 10:04] VITALS: BP 110/68; PULSE 88; TEMP 37.2; O2SAT 96
[2017-02-04] MEDS: OXYCODONE HCL IR 5 MG TAB (IMMEDIATE RELEASE) PO PRN (11:47)
--- NOTE | 2017-02-10 14:54 | DISCHARGE SUMMARY ---
DISCHARGE DIAGNOSIS: Degenerative joint disease, right hip. SECONDARY DIAGNOSIS: None. CONSULTS: None. COMPLICATIONS: None. PROCEDURE: The patient underwent a right total hip arthroplasty, direct anterior approach with Dr. Masters on 02/02/2017. BRIEF HISTORY: Please see previously dictated history and physical. HOSPITAL SUMMARY: The patient was admitted on the above day for the above procedure. Procedure went without complication. Postop day #1, the patient was feeling well without complaints. She denied chest pain or shortness of breath. The patient's systolic blood pressures were in the 80s; however, she was completely asymptomatic, her baseline blood pressure is usually in the 100s. Vital signs were stable otherwise. She was afebrile and dressing was clean, dry and intact. She was neurovascularly intact. Calves were soft and nontender. Hip was located. Hemovac was 35 and 30 mL per shift. Hemoglobin was 8.4. The patient began physical therapy per protocol. Postop day #2, the patient continued to improve. She denied chest pain or shortness of breath. Blood pressures were back in the upper 90s-100s. Dressing was clean, dry and intact. She was neurovascularly intact. Calves are soft and nontender. The patient progressed with physical therapy and was discharged to home later that day in stable condition. For further review please see the chart. Lab, x-ray data and discharge instructions as per chart.
== END 2017-02-04 13:40 | disposition home health service (06) | DRG 470 ==
LOC: ENRESERVTM → ENRESERVDT → C.ACU 09:20 → C.3E 10:30
PROVIDERS: ADMIT Orthopaedic Surgery; ATTEND Orthopaedic Surgery
PROC: 0SR90JZ Replacement of Right Hip Joint with Synthetic Substitute, Open Approach (ICD-10-PCS; principal; 2017-02-02 11:30)
DX: M16.11 Unilateral primary osteoarthritis, right hip (principal); R03.1 Nonspecific low blood-pressure reading; E78.00 Pure hypercholesterolemia, unspecified; F41.9 Anxiety disorder, unspecified; F32.9 Major depressive disorder, single episode, unspecified; M96.1 Postlaminectomy syndrome, not elsewhere classified; Z96.89 Presence of other specified functional implants; Z87.891 Personal history of nicotine dependence; Z86.718 Personal history of other venous thrombosis and embolism; Z96.651 Presence of right artificial knee joint; Z96.642 Presence of left artificial hip joint; Z79.82 Long term (current) use of aspirin; Z79.891 Long term (current) use of opiate analgesic; Z79.899 Other long term (current) drug therapy

== ENCOUNTER → 2017-12-07 | Outpatient (CLI) | payer OTHER ==
[~2017-12-07] MED LIST changes: +ACET-1256 PO; -ACET-1311 PO; -ACETAMINOPHEN 500 MG TAB PO SCH; -BACL0.05 IT; -BUPIVACAINE 0.5 % 5 MG/1 ML PF 10ML VIAL ONE; -CEFAZOLIN 2000 MG/60 ML D5W 60 ML IV SCH; -DEXAMETHASONE 4 MG TAB PO SCH; -FAMOTIDINE 20 MG TAB PO SCH; -FERR1TAB24 PO; +FERR1TAB62 PO; -GABAPENTIN 300 MG CAP PO SCH; -HYDR-3983 PO; +IBUP-1050 PO; -LACTATED RINGER'S 1000ML 1,000 ML IV SCH; -LACTATED RINGER'S 1000ML 500 ML IV ONE; -LACTATED RINGER'S 1000ML IV SCH; -METOCLOPRAMIDE HCL 10 MG TAB PO SCH; -NRN100; -OXYCODONE HCL 10 MG TABCR (OXYCONTIN) PO SCH; -POLYMYXIN B SULFATE 100,000 UNITS in NSS 100ML IR SCH; -ROPIVACAINE 5MG/ML 30 ML 150 MG, BUPIVACAINE/EPINEPHR 0.5% MPF 30 ML, KETOROLAC TROMETH... INFIL SCH; -VANCOMYCIN INJ 400 MG in NSS 100ML IR SCH; +[UNRECOGNIZED DRUG - CODE] IT
--- NOTE | 2017-12-08 14:40 | MAMMOGRAPHY REPORT ---
BILATERAL DIGITAL SCREENING MAMMOGRAM TOMOSYNTHESIS WITH CAD: 12/07/2017 CLINICAL HISTORY: Routine screening. Patient has no complaints. TECHNIQUE: Breast tomosynthesis in addition to standard 2D mammography was performed. Current study was also evaluated with a Computer Aided Detection (CAD) system. COMPARISON: Comparison is made to exams dated: 12/04/2016 mammogram, 11/29/2015 mammogram, 11/21/2014 m ammogram, 11/04/2012 mammogram - [facility], 02/03/2011 mammogram, and 03/15/2008 mamm ogram - [facility]. BREAST COMPOSITION: The tissue of both breasts is almost entirely fatty. FINDINGS: There are increasingly prominent bilateral axillary lymph nodes, for which ultrasound is r ecommended for further evaluation. The remainder of both breasts are stable compared to prior exams, without suspicious masses, calcific ations, or areas of architectural distortion noted. Bilateral benign-appearing calcifications are no t significantly changed. Nodular asymmetry in the left medial breast is stable dating back to at [facility] the 2010 and 2007 exams. IMPRESSION: ACR BI-RADS CATEGORY 0: INCOMPLETE EVALUATION: NEED ADDITIONAL IMAGING EVALUATION Bilateral axillary lymph nodes, for which additional imaging evaluation is recommended. The patient will be called to schedule an appointment. Approximately 10% of breast cancers are not detected with mammography. A negative mammographic report should not delay biopsy if a clinically suggestive mass is present. Twyla Mejia M.D. /:12/07/2017 16:05:51 Tanker Driver: Rachana LYN(Reanna)(Teresa), [facility] letter sent: Addl Imaging 0 BI-RADS Code: ACR BI-RADS Category 0: Incomplete Evaluation: Need Additional Imaging Evaluation
== END | disposition home or self-care (01) ==
LOC: C.MAMM 15:09
PROVIDERS: ATTEND Internal Medicine
DX: Z12.31 Encounter for screening mammogram for malignant neoplasm of breast (principal); R59.0 Localized enlarged lymph nodes

== ENCOUNTER → 2017-12-21 | Outpatient (CLI) | payer OTHER ==
--- NOTE | 2017-12-21 15:20 | MAMMOGRAPHY REPORT ---
ULTRASOUND OF BOTH BREASTS: 12/21/2017 CLINICAL HISTORY: 72-year-old woman called back from screening mammography for increasingly prominent bilateral axillary lymph nodes. No known history of leukemia, lymphoma, autoimmune disorder or othe r known cause for lymphadenopathy. COMPARISON: Comparison is made to exams dated: 11/04/2012 mammogram - [facility], 02/03/2011 mammogram, 11/21/2014 mammogram, 11/29/2015 mammogram, 12/04/2016 mammogram, and 12/07/2017 yordy mogram - [facility]. FINDINGS: Targeted ultrasound was performed in both axille. Several lymph nodes are identified in e ach axilla on targeted ultrasound. The lymph nodes identified have slight cortical thickening and sl ightly abnormal morphology. Given these ultrasound findings as well as the increase in size based on prior mammograms, the lymph nodes are indeterminate and definitive characterization with ultrasound- guided fine-needle aspiration versus core needle biopsy of one of the wireless sales representative lymph nodes is r ecommended. The most superficial lymph node is located in the right axilla. IMPRESSION: ACR BI-RADS CATEGORY 4: SUSPICIOUS - FOLLOW-UP RECOMMENDED There are slightly prominent lymph nodes with mild cortical thickening in both axillary regions ident ified on ultrasound. Given this slight cortical thickening and increased in size comparing to prior mammograms, the lymph nodes are indeterminate. Differential considerations include infectious, infla mmatory, autoimmune and neoplastic processes. Definitive characterization of ultrasound-guided core biopsy and or fine-needle aspiration of 1 wireless sales representative axillary lymph node is recommended (45 minut es). These results and recommendations were discussed with the patient at the time of the exam. She tenta tively scheduled the biopsy prior to leaving our department. Sahara Agarwal M.D. ay/:12/21/2017 11:03:28 Thoracic Medicine Specialist: Dr. Sahara Agarwal, [facility] letter sent: Abnormal 4/5 BI-RADS Code: ACR BI-RADS Category 4: Suspicious
== END | disposition home or self-care (01) ==
LOC: C.MAMM 10:24
PROVIDERS: ATTEND Internal Medicine
DX: R59.1 Generalized enlarged lymph nodes (principal)

== ENCOUNTER → 2017-12-29 | Outpatient (CLI) | payer OTHER ==
--- NOTE | 2017-12-29 10:43 | Discharge Instructions ---
Discharge Instructions Procedure Procedure Date: Dec 29, 2017. Reason for visit: Right Axillary Lymph Node. Discharge Discharge Date: Dec 29, 2017. Discharge Diagnosis: post right axillary lymph node biopsy Medications Restart Stopped Medication(s): May restart Aspirin this evening Instructions Activity Recommendations: Additional Limitations (see below) Return to School/Work: no limitations Recommended Home Diet: No Limitations Provider Instructions: ACTIVITY RECOMMENDATIONS: * No lifting, pushing, pulling or exercising the affected side for three days. RETURN TO SCHOOL/WORK: * You may return to work/school after the procedure, but do not perform any strenuous activities for 24 to 48 hours. MEDICATIONS: * Tylenol (two 325 mg) every four to six hours if needed for mild pain (if not allergic to Tylenol). DIET: * Resume previous diet. SPECIAL CARE INSTRUCTIONS: * Keep biopsy site dry for 24 hours. May shower after 24 hours, but do not soak (bathe) incision. * May remove Tegaderm (plastic patch) tomorrow AFTER showering. * Leave the steri-strips on for one week. Allow the steri-strips to fall off by themselves. If not off after one week, you may remove them. You may place a Bandaid crosswise over the strips, if desired. * Apply ice 10 minutes on and 10 minutes off as needed. * Wear a bra at bedtime to sleep more comfortably for 2-3 days. * Your referring physician should have the results after approximately 5 to 7 business days. * Call for unusual bleeding, fever, drainage, etc or if you have any questions call [phone] during normal business hours or after hours call Dr Agarwal, . FOLLOW UP VISIT: Follow-up with Referring Physician as scheduled. Allergies Coded Allergies: Latex (Verified Allergy, Mild, contact dermatitis, 11/17/17) Sulfa Antibiotics (Verified Allergy, Mild, RASH, 11/17/17) Nickel (Verified Allergy, Unknown, contact dermatitis, 11/17/17) Pop Cherry Recommendations: Call your doctor if: * Temperature above 101 degrees * Pain not relieved by pain medicine ordered * There is increased drainage or redness from any incision * You have any unanswered questions or concerns. Your Doctors Instructions noted above were prepared by provider Sahara Agarwal. Patient Signature Section: Patient Instructions Signature Page Lizeth Henry Patient (or Guardian) Signature/Date: I have read and understand the instructions given to me by my caregivers. Caregiver/RN/Doctor Signature/Date: The above-named patient and/or guardian has received patient instructions on this date. + Original Patient Signature Page (only) stays with chart. Please make copy for patient.
--- NOTE | 2017-12-29 15:24 | MAMMOGRAPHY REPORT ---
UNILATERAL RIGHT DIGITAL DIAGNOSTIC MAMMOGRAM: 12/29/2017 CLINICAL HISTORY: Status post ultrasound guided core biopsy and fine-needle aspiration sampling of a morphologically abnormal right axillary lymph node. Please refer to the report from right axillary lymph node biopsy performed at the same time for full detail. IMPRESSION: POST PROCEDURE IMAGING FOR MARKER PLACEMENT Please refer to the report from right axillary lymph node biopsy performed at the same time for full detail. Approximately 10% of breast cancers are not detected with mammography. A negative mammographic report should not delay biopsy if a clinically suggestive mass is present. Sahara Agarwal M.D. ay/:12/29/2017 13:29:10 Surveyor Hydrographic: Cami LYN(Reanna)(Teresa), [facility] BI-RADS Code: Post Procedure Imaging For Marker Placement
--- NOTE | 2017-12-29 15:24 | MAMMOGRAPHY REPORT ---
ULTRASOUND GUIDED BIOPSY RIGHT BREAST: 12/29/2017 CLINICAL HISTORY: Indeterminate bilateral axillary lymph nodes that have increased in size comparing to prior mammograms and have mildly thickened cortices. Patient presents for tissue sampling of a re presentative lymph node in the right axilla. COMPARISON: Comparison is made to exams dated: 12/21/2017 ultrasound, 12/07/2017 mammogram, 12/04/2016 mammogram, 11/29/2015 mammogram, 11/21/2014 mammogram, and 11/04/2012 mammogram - [facility]. PATIENT CONSENT: The procedure, risks and benefits were discussed with the patient and informed conse nt was obtained both verbally and in writing. Specific risks to this procedure include: bleeding, in fection, puncture of adjacent structure, nontarget biopsy, sampling error, pain, metal allergy and me dication reaction. PROCEDURE DESCRIPTION: A time out was performed and the right axilla was agreed as the site of biopsy . The skin was prepped and draped in the usual sterile fashion. A lymph node with mildly thickened c ortex was identified and chosen as target for biopsy. Subcutaneous and intraparenchymal 1% buffered l idocaine, with and without epinephrine, was administered as local anesthesia. A skin incision was mad e. Through the incision, 3 core samples were taken with an 18 gauge Quick Core biopsy device. An orb -shaped, sonolucent metallic marker was placed at the biopsy site. However prior to placing the biop sy marker clip within the lymph node, 3 additional fine-needle aspiration passes were obtained throug h the lymph node with a 22-gauge needles and the samples were rinsed in sterile saline and also sent to the pathology department for flow cytometry. Hemostasis was achieved after manual compression. Th e patient tolerated the procedure well and there was no immediate complication. All of the samples w ere sent to the pathology department in an appropriately labeled containers. 2 postprocedure right MLO views were obtained. A new metallic biopsy marker clip is seen within the lymph node in the far superior right axilla. There is density surrounding a lymph node, consistent w ith mild hematoma. IMPRESSION: ULTRASOUND GUIDED BIOPSY Status post ultrasound-guided core biopsy and fine-needle aspiration biopsy of a morphologically abno rmal right axillary lymph node, with biopsy marker placed within the lymph node after sampling. The patient will receive notification of the biopsy results from her referring physician. Sahara salazar/:12/29/2017 11:02:55 Attending Technologist: Dr. Sahara Agarwal, [facility] Fashion Design Professor: Cami GOTTI)(M), [facility]
== END | disposition home or self-care (01) ==
LOC: C.MAMM 09:54
PROVIDERS: ATTEND Internal Medicine
DX: R59.0 Localized enlarged lymph nodes (principal); C82.94 Follicular lymphoma, unspecified, lymph nodes of axilla and upper limb

== ENCOUNTER → 2018-02-01 | Outpatient (CLI) | payer OTHER ==
--- NOTE | 2018-02-01 17:42 | DIAGNOSTIC IMAGING REPORT ---
PET/CT SKULL-THIGH CLINICAL HISTORY: 72 years-old Female presenting with FOLLICULAR LYMPHOMA GRADE I, lymph NODES OF AXILLA AND UPPER, lymphoma diagnosed December 2017, former smoker, increasingly prominent bilateral axillary lymph nodes on mammogram from November. TECHNIQUE: PET/CT was performed from the base of the skull through the proximal thighs following the intravenous administration of 8.584 mCi of F18-FDG. Blood glucose level 87 mg/dL. The injection was performed at 1:27 PM and imaging began at 2:[address] was performed for attenuation correction purposes and anatomic localization. COMPARISON: None. CT DOSE (mGy.cm): The estimated cumulative dose is 1156.30. FINDINGS: Head and neck: Few mildly FDG avid not pathologically enlarged lymph nodes in the lower cervical regions are equivocal for disease. The most FDG avid lymph node is in the left supraclavicular fossa with a max SUV of 3.52. Chest: FDG avid borderline enlarged bilateral axillary lymphadenopathy (max SUV on the right 5.49, max SUV on the left 4.05). FDG avid lymph nodes posterior to the pectoralis muscles bilaterally, also not pathologically enlarged by CT size criteria. No mediastinal lymphadenopathy. Atherosclerosis of the aorta. Mild aneurysmal dilatation of the ascending aorta, which measures 4.6 cm in diameter. Normal heart size. Coronary artery calcification. No pericardial or pleural effusion. Minimal dependent changes likely atelectasis. Apical predominant emphysema. Solid 7 mm nodule in the posterior apical segment of the left upper lobe (series 2 image 66); this is not significantly FDG avid though is at the lower limits of PET resolution. Airways patent. Abdomen and pelvis: Pathologically enlarged FDG avid retroperitoneal and inguinal lymphadenopathy (max SUV in the portacaval region 6.78, max SUV in the left periaortic region 5.31, max SUV in the left common iliac region 6.29, max SUV in the left external iliac region 6.43, max SUV in the right external iliac region 4.85, max SUV in the right inguinal region 4.54, max SUV in the left inguinal region 8.89). The spleen is not enlarged and not significantly FDG avid with a max SUV of 2.61 in comparison to the liver with a max SUV of 2.83. Gallbladder surgically absent. 1.2 cm nodule in the left adrenal gland is consistent with a benign adenoma by density. Right adrenal gland normal. Hypodensity at the lower pole of the right kidney is photopenic and likely a simple cyst. Prominence of the renal pelvises without evidence of hydronephrosis, possibly extrarenal pelvises or ureteropelvic junction obstruction. Evaluation of the pelvis is severely degraded by extensive streak artifact arising from the hip prostheses. Musculoskeletal: No FDG-avid or destructive osseous lesion. An implanted device noted in the ventral subcutaneous tissue of the left lower quadrant with a small epidural catheter entering the spinal canal in the upper lumbar region and directed superiorly to the mid thoracic spine. Bilateral total hip prostheses and posterior lumbar fusion hardware with laminectomy defects. Degenerative changes of the spine. IMPRESSION: 1. Initial PET/CT demonstrates multifocal FDG avid lymphadenopathy involving the bilateral axillae, lower retroperitoneum, and bilateral inguinal regions. Equivocal involvement of the lower cervical regions and left supraclavicular fossa. No mediastinal lymphadenopathy or solid organ involvement. 2. Ascending aortic aneurysm measuring 4.6 cm in diameter. 3. Emphysema. 4. Solid photopenic 7 mm pulmonary nodule in the left upper lobe. 5. Benign left adrenal adenoma. Electronically signed by: Gunner Simmons M.D. 02/01/2018 5:40 PM Dictated Date/Time: 02/01/2018 5:18 PM
== END | disposition home or self-care (01) ==
LOC: C.PET 12:00
PROVIDERS: ATTEND Internal Medicine Hematology & Oncology
DX: C82.04 Follicular lymphoma grade I, lymph nodes of axilla and upper limb (principal); I71.4 Abdominal aortic aneurysm, without rupture; J43.9 Emphysema, unspecified; R91.1 Solitary pulmonary nodule; D35.02 Benign neoplasm of left adrenal gland

== ENCOUNTER → 2018-02-12 | Outpatient (CLI) | payer OTHER ==
[2018-02-12 14:25] LABS: BASO % 1.5 %; BASO ABS # 0.06 K/uL (0-0.2); EOS ABS # 0.08 K/uL (0-0.5); HEMATOCRIT 41.1 % (37-47); HEMOGLOBIN 13.5 g/dL (12.0-16.0); IG# 0.01 K/uL (0.00-0.02); LYMPH % 22.3 %; LYMPH ABS # 0.88 K/uL (1.2-3.4); MEAN CELL VOLUME 90.5 fL (80-100); MEAN CORPUSCULAR HEMOGLOBIN 29.7 pg (25-34); MEAN CORPUSCULAR HGB CONC 32.8 g/dl (32-36); MEAN PLATELET VOLUME 10.8 fL (7.4-10.4); MONO % 5.1 %; NEUT % 68.8 %; NEUT ABS # 2.71 K/uL (1.4-6.5); PLATELET COUNT 282 K/uL (130-400); RED CELL DISTRIBUTION WIDTH CV 12.2 % (11.5-14.5); RED CELL DISTRIBUTION WIDTH SD 40.3 fL (36.4-46.3); WHITE BLOOD COUNT 3.94 K/uL (4.8-10.8)
[2018-02-12 16:10] LABS: ALBUMIN 3.7 gm/dl (3.4-5.0); ALT/SGPT 25 U/L (12-78); AST/SGOT 21 U/L (15-37); BLOOD UREA NITROGEN 18 mg/dl (7-18); CALCIUM 9.7 mg/dl (8.5-10.1); CARBON DIOXIDE 32 mmol/L (21-32); CREATININE 0.83 mg/dl (0.60-1.20); GLUCOSE 96 mg/dl (70-99); POTASSIUM 4.2 mmol/L (3.5-5.1); SODIUM 138 mmol/L (136-145)
[2018-02-12 16:12] LABS: ALKALINE PHOSPHATASE 71 U/L (45-117); TOTAL PROTEIN 7.2 gm/dl (6.4-8.2)
== END | disposition home or self-care (01) ==
LOC: C.LABBC 10:28
PROVIDERS: ATTEND Internal Medicine Hematology & Oncology
DX: C82.04 Follicular lymphoma grade I, lymph nodes of axilla and upper limb (principal)

== ENCOUNTER → 2018-06-03 | Outpatient (CLI) | payer OTHER ==
[~2018-06-03] MED LIST changes: -MORPHINE IR IT; -NABU750T PO; +[UNRECOGNIZED DRUG - CODE] PO; +[UNRECOGNIZED DRUG - OTHER] IT
--- NOTE | 2018-06-03 11:08 | DIAGNOSTIC IMAGING REPORT ---
ULTRASOUND EXAM AAA SCREEN CLINICAL HISTORY: Screening for AAA (abdominal aortic aneurysm). COMPARISON STUDY: PET/CT February 01, 2018. TECHNIQUE: Sonography of the abdominal aorta was performed. FINDINGS: The caliber of the abdominal aorta is normal. The proximal abdominal aorta measures 2.6 cm. The mid abdominal aorta measures 1.8 cm and the distal abdominal aorta measures 1.3 cm. There is moderate atherosclerotic plaque. Caliber of the proximal bilateral common iliac arteries is normal. IMPRESSION: No abdominal aortic aneurysm. Moderate atherosclerotic plaque. Electronically signed by: Jacob Trejo M.D. 06/03/2018 11:06 AM Dictated Date/Time: 06/03/2018 11:05 AM
== END | disposition home or self-care (01) ==
LOC: C.ULTRBC 10:28
PROVIDERS: ATTEND Internal Medicine
DX: Z13.6 Encounter for screening for cardiovascular disorders (principal)

== ENCOUNTER 2020-08-26 18:38 | Inpatient (IN) ==
[2020-08-26] MEDS ORDERED: VANCOMYCIN HCL 1,500 MG in SODIUM CHLORIDE 0.9% 500 ML IV ONE (19:47)
[2020-08-26] MEDS ORDERED: MoRPHine SULFATE 4 MG/ML 1 ML CARP\\VIAL IV STA (19:47)
[2020-08-26] MEDS ORDERED: SODIUM CHLORIDE 0.9% 1000ML 1,000 ML IV ONE (19:47)
[2020-08-26] MEDS ORDERED: VANCOMYCIN CONSULT ACTIVE PRN (19:47)
[2020-08-26] MEDS ORDERED: PIPERACILL/TAZOBAC CONSULT ACTIVE PRN (19:47)
[2020-08-26] MEDS ORDERED: PIPERACILLIN/TAZOBACTAM 4.5 GM/120 ML BAG IV ONE (19:47)
[2020-08-26] MEDS ORDERED: ACETAMINOPHEN 1,000 MG/100 ML VIAL IV STA (19:47)
[2020-08-26 20:44] LABS: Basophils # (auto) 0.02 K/uL (0-0.2); Basophils % (auto) 0.2 %; Hematocrit (blood only) 33.7 % (37-47); Hemoglobin 10.7 g/dL (12.0-16.0); Immature Granulocytes # (auto) 0.03 K/uL (0.00-0.02); Immature Granulocytes % (auto) 0.3 %; Lymphocytes # (auto) 0.33 K/uL (1.2-3.4); Lymphocytes % (auto) 2.9 %; Mean Corpuscular Hemoglobin 27.6 pg (25-34); Mean Corpuscular Hgb Conc 31.8 g/dL (32-36); Mean Corpuscular Volume 86.9 fL (80-100); Mean Platelet Volume 9.1 fL (7.4-10.4); Monocytes # (auto) 0.31 K/uL (0.11-0.59); Monocytes % (auto) 2.7 %; Neutrophils # (auto) 10.84 K/uL (1.4-6.5); Neutrophils % (auto) 93.9 %; Platelet Count 586 K/uL (130-400); RDW Coefficient of Variation 13.6 % (11.5-14.5); RDW Standard Deviation 43.1 fL (36.4-46.3); Red Blood Count 3.88 M/uL (4.2-5.4); White Blood Count 11.53 K/uL (4.8-10.8)
[2020-08-26 20:48] LABS: Base Excess VBG 5.8 mEq/L; HCO3 VBG 32 mmol/L; Oxygen Saturation VBG < 60.0 %; PCO2 VBG 51 mmHg (38-50); PO2 VBG 20 mmHg; pH VBG 7.41 (7.36-7.41)
[2020-08-26 20:57] LABS: INR 1.1 (0.9-1.1); Partial Thromboplastin Time 27.2 Seconds (21.0-31.0)
[2020-08-26 21:02] LABS: Albumin Level 2.9 gm/dl (3.4-5.0); BUN Creatinine Ratio 19.1 (10-20); Bilirubin Direct 0.3 mg/dl (0-0.2); Calcium 9.7 mg/dl (8.5-10.1); Creatinine Clr Calc Pharmacy 54.3 ml/min; Est GFR (African American) 65.1; Est GFR (Non-African American) 56.1; Potassium 3.2 mmol/L (3.5-5.1)
[2020-08-26 21:15] LABS: Albumin Globulin Ratio 0.6 (0.9-2); Bilirubin,Total 0.9 mg/dl (0.2-1); Globulin 4.8 gm/dl (2.5-4.0); Phosphorus 3.4 mg/dl (2.5-4.9); Total Protein 7.7 gm/dl (6.4-8.2); Troponin I 0.643 ng/ml (0-0.045)
[2020-08-26] MEDS ORDERED: HYDROmorphone INJ 1 MG/ML SYRINGE IV STA (22:33)
[2020-08-26 22:36] LABS: Appearance Urine Clear (Clear); Bacteria Urine Automated Negative (Negative); Bilirubin Urine Negative (Negative); Blood Urine Negative (Negative); Color Urine Yellow; Epithelial Cell Urine Auto >30 /lpf (0-5); Glucose Urine UA Negative (Negative); Ketones Urine Negative (Negative); Leukocyte Esterase Urine 1+ (Negative); Nitrite Urine Negative (Negative); Protein Urine Negative (Negative); RBC Urine Automated 0-4 /hpf (0-4); Specific Gravity Urine 1.015 (1.000-1.030); Urobilinogen Urine Negative (Negative); pH Urine 5.5 (4.5-7.5)
--- NOTE | 2020-08-26 22:44 | Emergency Department Note ---
Impression & Plan Sepsis, Follicular lymphoma, Chronic pain syndrome, Opioid dependence, Aortic stenosis ED Provider Note NAME: JAYLEEN BARRERA AGE: 75 SEX: F ARRIVES VIA: Walk-In INFORMANT: Patient, ED PROVIDER(S): Memo Rangel MD CHIEF COMPLAINT: Fevers, UTI PLAN: Disposition: Admit MEDICAL DECISION MAKING: The patient is a pleasant 75-year-old woman with a past medical history of chronic pain syndrome, spinal stenosis, follicular lymphoma who presents emergency department with fever, body aches and urinary symptoms with dysuria that has been ongoing for the past several weeks where she reports she had completed 2 rounds of antibiotics most recently completing a course a couple of days ago. However she reports only a couple of days of improvement and now feels worse again. Review of recent cultures were not convincing for true infection. She does have chronic bilateral lower extremity swelling which she reports they feel is related to her lymphoma. She reports that this is the usual swelling and is not any worse. She denies any known COVID-19 exposures. She does feel somewhat short of breath but denies any cough or congestion. On arrival the patient acute on chronically ill-appearing febrile to 38.2, tachycardic in the 100s and vital signs otherwise stable. She does appear clinically dry despite her chronic bilateral lower extremity edema. Abdomen is benign. She exhibits severe kyphosis which apparently has been her recent ba seline. EKG without evidence of overt acute ischemia. CXR negative for acute process. WBC 11.5, nonspecific. H/H 10.7/33, slightly decreased from prior. Platelets 500s, likely reactive. Chemistry without acidosis. LFTs unremarkable. Troponin slightly elevated at 0.6 without prior elevation. Procalcitonin 0.57. UA without convincing evidence of infection. Given patient's presentation concerning for sepsis patient was ordered from broad spectrum ABX, empirically with Zosyn and Vancomycin. Per preliminary [facility] report CT A chest negative for PE. Otherwise CT chest and abd/pelvis without acute process and demonstrates known lymphoma. Patient and daughter are agreeable with plan for admission for further evaluation and treatment for presumed sepsis. Case was discussed with Dr. Pedraza, [facility] hospitalist, who will evaluate the patient for admission. Triage Nursing notes reviewed and agree them. Prior medical records reviewed Vital Signs: reviewed and remarkable for no significant abnormalities Differential diagnosis: Sepsis, UTI, pneumonia, metabolic, electrolyte abnormalities, cardiac sources, intracerebral event, toxicologic, neurologic, as well as other pathologies. ER treatment provided: See below. Diagnostics interpreted by me: ECG: Sinus Tachycardia, 108 bpm, no ectopy, nonspecific ST and TWA. no overt ST elevation. Cardiac Monitoring: An order for continuous cardiac monitoring was placed and demonstrated Sinus Tachycardia, 108 bpm, no ectopy. 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 There is no dissection. The descending thoracic aorta is nondilated measuring 2.6 cm. Calcified plaque causing 70% stenosis of the origin of the left subclavian artery. The pulmonary arterial tree is well-opacified with contrast. The heart is not enlarged. Moderate coronary transfusions present. No pericardial effusion. Borderline axillary lymphadenopathy with 10-12 mm short axis diameter lymph nodes bilaterally. Partially elevated right diaphragm with mild emphysema and a small amount of right basilar subsegmental atelectasis. 8 mm pulmonary nodule the left upper lobe. Fleischner Society Guidelines for low-risk patients recommend follow-up chest CT at 6-12 months. If unchanged consider an additional follow-up CT at 18-24 months. For high-risk patients (smoking history or other known risk factors) initial follow-up chest CT at 6-12 months and if unchanged, 18-24 months. 2 cm left adrenal nodule is nonspecific. Please check final report for follow-up recommendations. Moderate degenerative changes in the lower thoracic spine. No acute fracture or subluxation is seen. -- Preliminary Findings Only See Final Report For Complete Findings CT ABDOMEN & PELVIS With Contrast: Comparison to January 04, 2020 There is aneurysmal dilation of the ascending aortic arch measuring 4.4 cm. No dissection. Incidental note is made of a pacing device in place and severe coronary calcification. Mild diffuse biliary duct dilation postcholecystectomy. The common bile duct measures 11 mm. No choledocholithiasis is identified. The liver, spleen, pancreas, and kidneys appear within normal limits. Bowel loops are nondilated. No pneumoperitoneum, free fluid, or acute inflammatory changes are seen involving the bowel. Metallic artifact from bilateral hip arthroplasties and baclofen pump implanted in the left pelvic subcutaneous tissues. Severe degenerative changes throughout the lumbar spine with previous instrumentation, fusion, and laminectomy extending from L3-L5. This appears unchanged. Retroperitoneal lymphadenopathy has decreased compared to previous. Radiologist: Eugene Schmidt MD Study ready at 23:30 and initial results transmitted at 23:50 Consultation(s): Case was discussed with Dr. Pedraza, [facility] hospitalist, who will evaluate the patient for admission. HPI: The patient is a pleasant 75-year-old woman with a past medical history of chronic pain syndrome, spinal stenosis, follicular lymphoma who presents emergency department with fever, body aches and urinary symptoms with dysuria that has been ongoing for the past several weeks where she reports she had completed 2 rounds of antibiotics most recently completing a course a couple of days ago. However she reports only a couple of days of improvement and now feels worse again. Review of recent cultures were not convincing for true infection. She does have chronic bilateral lower extremity swelling which she r eports they feel is related to her lymphoma. She reports that this is the usual swelling and is not any worse. She denies any known COVID-19 exposures. She does feel somewhat short of breath but denies any cough or congestion. ROS: See above HPI for pertinent positives & negatives. A total of 10 systems reviewed and were otherwise negative. PAST MEDICAL HISTORY:See Below PAST SURGICAL HISTORY:See Below FAMILY HISTORY:See Below SOCIAL HISTORY:See Below HOME MEDICATIONS:See Below ALLERGIES:See Below VITALS:See Below PHYSICAL EXAMINATION: GENERAL: Awake, alert, ill-appearing, in no distress HENT: Normocephalic, atraumatic. Oropharynx with dry mucous membranes and otherwise unremarkable. EYES: Normal conjunctiva. Sclera non-icteric. NECK: Supple. No nuchal rigidity. FROM. No JVD. RESPIRATORY: Clear to auscultation. CARDIAC: Tachycardic rate, normal rhythm. 3/6 systolic murmur. Extremities warm and well perfused. Pulses equal. ABDOMEN: Soft, non-distended. No tenderness to palpation. No rebound or guarding. No masses. RECTAL: Deferred. MUSCULOSKELETAL: Chest examination reveals no tenderness. The back with severe kyposis. There is no CVA tenderness to palpation. LOWER EXTREMITIES: Calves are equal size bilaterally and non-tender. 2+ BLE herber ing edema. No discoloration. NEURO: Normal sensorium. No sensory or motor deficits noted. SKIN: No rash or jaundice noted. ED COURSE: Critical Care: I have personally spent greater than 45 minutes of critical care time in the direct management of this patient. This includes bedside care, interpretation of diagnostic studies, and testing, discussion with consultants, patient, and family members, and other required patient management activities. This 45 minutes is in excess of all separately billable procedures. Memo Rangel MD Past Med/Surg History Medical History Anemia Anxiety Aortic stenosis MODERATE, EDWARD 1.1CM ON 03/20/20 ECHO. Atherosclerosis of aorta Chronic pain syndrome Degenerative disc disease Depression DVT (deep venous thrombosis) possibly, treated inpatient directly following knee replacement. no problems since. Emphysema of lung Noted on chest CTs but not reported by patient. Follicular lymphoma currently monitoring and treating with Dr Moseley (oncology). To have port placed for chemo by Dr Chow 09/17/20 Gastroesophageal reflux disease Hyperlipidemia Hypertension Lumbar canal stenosis Myofascial pain Osteoarthritis Peripheral edema Currently, L >R, 2/2 lymphoma. Wearing compression socks. Persistent insomnia Piriformis syndrome Post laminectomy syndrome Presence of intrathecal pump Urinary tract infection currently finishing abx (08/21/20). not recurrent infections typically Surgical History H/O cataract removal with insertion of prosthetic lens bilateral History of cholecystectomy 1978 History of colonoscopy History of knee replacement procedure of right knee 2002 History of laminectomy lumbar ~2013 Previous back surgery 2006,2007,2013 S/P hip replacement bilateral 2015, 2016 Status post laminectomy with spinal fusion lumbar, 2007 & 2008 Family History Father Abdominal aneurysm Colorectal cancer Grandmother (Paternal) Cancer Other No family history of adverse response to anesthesia Denies family history of Ovarian cancer Prostate cancer Myocardial infarction Breast cancer Social History Smoking Status: Unknown if ever smoked Second Hand Exposure: No; Hx Substance Use: No Preferred Language: Armenian Communication Ability: Effective Visual Impairment: Limited Hearing Ability: Normal 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 Beliefs That Will Affect Care: None marital status: / Current Living Situation: Alone current occupational status: retired Feels Safe at Home: Yes Childhood Exposure to Second-Hand Smoke: Yes caffeine: Yes Dental Care, Regularly: No Physical Activity Frequency: Does not Exercise Seatbelt Use: always Sunscreen Use: Yes Assistive Devices: Glasses Allergies Allergies Allergy/AdvReac Type Severity Reaction Status Date / Time latex Allergy Mild contact Verified 08/26/20 22:05 dermatitis Sulfa (Sulfonamide Allergy Mild RASH Verified 08/26/20 22:05 Antibiotics) nickel Allergy Unknown contact Verified 08/26/20 22:05 dermatitis Home Meds Home Medications Medication Instructions Recorded Confirmed acetaminophen 500 mg tablet 1,000 mg PO Q6H PRN tab 07/27/18 08/26/20 aspirin 81 mg tablet,delayed 81 mg PO HS 07/27/18 08/26/20 release cholecalciferol (vitamin D3) 50 2,000 units PO QAM 07/27/18 08/26/20 mcg (2,000 unit) capsule fexofenadine 180 mg tablet 180 mg PO QAM 07/27/18 08/26/20 nicotine (polacrilex) 2 mg gum 2 mg BUCCAL Q2H 07/27/18 08/26/20 vitamin B complex 1 tab PO QAM 07/27/18 08/26/20 krill oil 500 mg capsule 500 mg PO QAM cap 06/29/19 08/26/20 ferrous sulfate 325 mg (65 mg 325 mg PO QAM 07/11/20 08/26/20 iron) tablet melatonin 5 mg capsule 5 mg PO HS PRN cap 07/11/20 08/26/20 calcium carbonate-vitamin D3 1 tab PO QAM 08/21/20 08/26/20 [Calcium + D] duloxetine [Cymbalta] 120 mg PO QAM 08/21/20 08/26/20 gabapentin [Neurontin] 100 mg PO HS 08/21/20 08/26/20 hydrochlorothiazide 25 mg PO QAM 08/21/20 08/26/20 lansoprazole [Prevacid] 30 mg PO QAM 08/21/20 08/26/20 multivitamin 2 tab PO QAM 08/21/20 08/26/20 nabumetone [Relafen] 750 mg PO BID 08/21/20 08/26/20 trazodone 25 - 50 mg PO HS PRN 08/21/20 08/26/20 baclofen 50 mcg/mL intrathecal 50 mcg INTRATHECAL DAILY 08/22/20 08/26/20 solution morphine IR soln 1 applic IMPLANT UD 08/22/20 08/26/20 Previous Rx's Medication Instructions Recorded fluticasone propionate 50 2 sprays INTNAS DAILY PRN #47.4 gm 07/25/19 mcg/actuation nasal spray,suspension Results & Data (ED) Vital Signs Vital Signs - 24 hr 08/26/20 19:00 08/26/20 20:18 08/26/20 20:40 Temperature 38.2 C H Temperature Source Oral Pulse Rate 108 H Pulse Rate [Right Radial] Pulse Rate from SpO2 Sensor Respiratory Rate 18 Respiratory Effort / Characteristics Non-Labored Non-Labored Respiratory Depth Normal Respiratory Pattern Regular Blood Pressure 100/59 L Blood Pressure [Right Arm] Blood Pressure Mean 72 Blood Pressure Mean [Right Arm] Blood Pressure Position [Right Arm] Pulse Oximetry 92 98 Oxygen Delivery Method Room Air Room Air Room Air Oxygen Flow Rate Sepsis Recent Fever Within 48 Hours Yes Sepsis New/Unexplained Change in Mental Status No Sepsis Action Taken by Nursing No Action Required 08/26/20 20:43 08/26/20 21:30 08/26/20 22:00 Temperature Temperature Source Pulse Rate 102 H Pulse Rate [Right Radial] 105 H Pulse Rate from SpO2 Sensor Respiratory Rate 18 19 Respiratory Effort / Characteristics Non-Labored Respiratory Depth Normal Respiratory Pattern Regular Blood Pressure 102/52 L 100/58 L Blood Pressure [Right Arm] 102/64 Blood Pressure Mean 66 66 Blood Pressure Mean [Right Arm] 76 Blood Pressure Position [Right Arm] Pulse Oximetry 98 Oxygen Delivery Method Room Air Oxygen Flow Rate Sepsis Recent Fever Within 48 Hours Sepsis New/Unexplained Change in Mental Status Sepsis Action Taken by Nursing 08/26/20 22:30 08/26/20 23:15 08/26/20 23:17 Temperature Temperature Source Pulse Rate 95 H 98 H Pulse Rate [Right Radial] 99 H Pulse Rate from SpO2 Sensor 94 H Respiratory Rate 20 18 16 Respiratory Effort / Characteristics Respiratory Depth Respiratory Pattern Blood Pressure 97/52 L 110/68 Blood Pressure [Right Arm] 110/68 Blood Pressure Mean 75 76 Blood Pressure Mean [Right Arm] 82 Blood Pressure Position [Right Arm] Sitting Pulse Oximetry 90 98 Oxygen Delivery Method Nasal Cannula Oxygen Flow Rate 3 Sepsis Recent Fever Within 48 Hours Sepsis New/Unexplained Change in Mental Status Sepsis Action Taken by Nursing 08/26/20 23:31 Temperature Temperature Source Pulse Rate 113 H Pulse Rate [Right Radial] Pulse Rate from SpO2 Sensor Respiratory Rate 18 Respiratory Effort / Characteristics Respiratory Depth Respiratory Pattern Blood Pressure 137/81 Blood Pressure [Right Arm] Blood Pressure Mean 97 Blood Pressure Mean [Right Arm] Blood Pressure Position [Right Arm] Pulse Oximetry Oxygen Delivery Method Oxygen Flow Rate Sepsis Recent Fever Within 48 Hours Sepsis New/Unexplained Change in Mental Status Sepsis Action Taken by Nursing Laboratory Data Attestation: I reviewed the patient's lab results. Result diagrams: 08/27/20 02:18 08/26/20 20:28 Lab Results 08/26/20 08/26/20 08/26/20 Range/Units 20:28 20:28 20:28 WBC 11.53 H (4.8-10.8) K/uL RBC 3.88 L (4.2-5.4) M/uL Hgb 10.7 L (12.0-16.0) g/dL Hct 33.7 L (37-47) % MCV 86.9 (80-100) fL MCH 27.6 (25-34) pg MCHC 31.8 L (32-36) g/dL RDW Std Deviation 43.1 (36.4-46.3) fL RDW Coeff of Inge 13.6 (11.5-14.5) % Plt Count 586 H (130-400) K/uL MPV 9.1 (7.4-10.4) fL Immature Gran % (Auto) 0.3 % Neut % (Auto) 93.9 % Lymph % (Auto) 2.9 % [place] % (Auto) 2.7 % Eos % (Auto) 0.0 % Baso % (Auto) 0.2 % Neut # (Auto) 10.84 H (1.4-6.5) K/uL Lymph # (Auto) 0.33 L (1.2-3.4) K/uL [place] # (Auto) 0.31 (0.11-0.59) K/uL Eos # (Auto) 0.00 (0-0.5) K/uL Baso # (Auto) 0.02 (0-0.2) K/uL Immature Gran # (Auto) 0.03 H (0.00-0.02) K/uL PT 12.0 (9.0-12.0) Seconds INR 1.1 (0.9-1.1) APTT 27.2 (21.0-31.0) Seconds PTT Ratio 1.0 VBG pH (7.36-7.41) VBG pCO2 (38-50) mmHg VBG pO2 mmHg VBG HCO3 mmol/L VBG O2 Saturation % VBG Base Excess mEq/L Barometric Pressure mm/Hg Sodium (136-145) mmol/L Potassium (3.5-5.1) mmol/L Chloride (98-107) mmol/L Carbon Dioxide (21-32) mmol/L Anion Gap (3-11) BUN (7-18) mg/dl Creatinine (0.6-1.2) mg/dl Est Cr Clr Drug Dosing ml/min Est GFR ( Amer) Est GFR (Non-Af Amer) BUN/Creatinine Ratio (10-20) Glucose (70-99) mg/dl Lactate (0.4-2.0) mmol/L Calcium (8.5-10.1) mg/dl Phosphorus (2.5-4.9) mg/dl Magnesium (1.8-2.4) mg/dl Total Bilirubin (0.2-1) mg/dl Direct Bilirubin (0-0.2) mg/dl AST (15-37) U/L ALT (12-78) U/L Alkaline Phosphatase (45-117) U/L Troponin I (0-0.045) ng/ml Total Protein (6.4-8.2) gm/dl Albumin (3.4-5.0) gm/dl Globulin (2.5-4.0) gm/dl Albumin/Globulin Ratio (0.9-2) Procalcitonin 0.57 H (0-0.5) ng/ml Urine Color Urine Appearance (Clear) Urine pH (4.5-7.5) Ur Specific [place] (1.000-1.030) Urine Protein (Negative) Urine Glucose (UA) (Negative) Urine Ketones (Negative) Urine Blood (Negative) Urine Nitrite (Negative) Urine Bilirubin (Negative) Urine Urobilinogen (Negative) Ur Leukocyte Esterase (Negative) Urine WBC (Auto) (0-5) /hpf Urine RBC (Auto) (0-4) /hpf U Hyaline Cast (Auto) (0-5) /lpf U Epithel Cells (Auto) (0-5) /lpf Urine Bacteria (Auto) (Negative) 08/26/20 08/26/20 08/26/20 Range/Units 20:28 20:28 20:28 WBC (4.8-10.8) K/uL RBC (4.2-5.4) M/uL Hgb (12.0-16.0) g/dL Hct (37-47) % MCV (80-100) fL MCH (25-34) pg MCHC (32-36) g/dL RDW Std Deviation (36.4-46.3) fL RDW Coeff of Inge (11.5-14.5) % Plt Count (130-400) K/uL MPV (7.4-10.4) fL Immature Gran % (Auto) % Neut % (Auto) % Lymph % (Auto) % [place] % (Auto) % Eos % (Auto) % Baso % (Auto) % Neut # (Auto) (1.4-6.5) K/uL Lymph # (Auto) (1.2-3.4) K/uL [place] # (Auto) (0.11-0.59) K/uL Eos # (Auto) (0-0.5) K/uL Baso # (Auto) (0-0.2) K/uL Immature Gran # (Auto) (0.00-0.02) K/uL PT (9.0-12.0) Seconds INR (0.9-1.1) APTT (21.0-31.0) Seconds PTT Ratio VBG pH 7.41 (7.36-7.41) VBG pCO2 51 H (38-50) mmHg VBG pO2 20 mmHg VBG HCO3 32 mmol/L VBG O2 Saturation < 60.0 % VBG Base Excess 5.8 mEq/L Barometric Pressure 738.6 mm/Hg Sodium 138 (136-145) mmol/L Potassium 3.2 L (3.5-5.1) mmol/L Chloride 98 (98-107) mmol/L Carbon Dioxide 32 (21-32) mmol/L Anion Gap 8.0 (3-11) BUN 19 H (7-18) mg/dl Creatinine 0.99 (0.6-1.2) mg/dl Est Cr Clr Drug Dosing 54.3 ml/min Est GFR ( Amer) 65.1 Est GFR (Non-Af Amer) 56.1 BUN/Creatinine Ratio 19.1 (10-20) Glucose 105 H (70-99) mg/dl Lactate 1.0 (0.4-2.0) mmol/L Calcium 9.7 (8.5-10.1) mg/dl Phosphorus 3.4 (2.5-4.9) mg/dl Magnesium 2.0 (1.8-2.4) mg/dl Total Bilirubin 0.9 (0.2-1) mg/dl Direct Bilirubin 0.3 H (0-0.2) mg/dl AST 27 (15-37) U/L ALT 23 (12-78) U/L Alkaline Phosphatase 158 H (45-117) U/L Troponin I 0.643 H* (0-0.045) ng/ml Total Protein 7.7 (6.4-8.2) gm/dl Albumin 2.9 L (3.4-5.0) gm/dl Globulin 4.8 H (2.5-4.0) gm/dl Albumin/Globulin Ratio 0.6 L (0.9-2) Procalcitonin (0-0.5) ng/ml Urine Color Urine Appearance (Clear) Urine pH (4.5-7.5) Ur Specific [place] (1.000-1.030) Urine Protein (Negative) Urine Glucose (UA) (Negative) Urine Ketones (Negative) Urine Blood (Negative) Urine Nitrite (Negative) Urine Bilirubin (Negative) Urine Urobilinogen (Negative) Ur Leukocyte Esterase (Negative) Urine WBC (Auto) (0-5) /hpf Urine RBC (Auto) (0-4) /hpf U Hyaline Cast (Auto) (0-5) /lpf U Epithel Cells (Auto) (0-5) /lpf Urine Bacteria (Auto) (Negative) 08/26/20 Range/Units 22:15 WBC (4.8-10.8) K/uL RBC (4.2-5.4) M/uL Hgb (12.0-16.0) g/dL Hct (37-47) % MCV (80-100) fL MCH (25-34) pg MCHC (32-36) g/dL RDW Std Deviation (36.4-46.3) fL RDW Coeff of Inge (11.5-14.5) % Plt Count (130-400) K/uL MPV (7.4-10.4) fL Immature Gran % (Auto) % Neut % (Auto) % Lymph % (Auto) % [place] % (Auto) % Eos % (Auto) % Baso % (Auto) % Neut # (Auto) (1.4-6.5) K/uL Lymph # (Auto) (1.2-3.4) K/uL [place] # (Auto) (0.11-0.59) K/uL Eos # (Auto) (0-0.5) K/uL Baso # (Auto) (0-0.2) K/uL Immature Gran # (Auto) (0.00-0.02) K/uL PT (9.0-12.0) Seconds INR (0.9-1.1) APTT (21.0-31.0) Seconds PTT Ratio VBG pH (7.36-7.41) VBG pCO2 (38-50) mmHg VBG pO2 mmHg VBG HCO3 mmol/L VBG O2 Saturation % VBG Base Excess mEq/L Barometric Pressure mm/Hg Sodium (136-145) mmol/L Potassium (3.5-5.1) mmol/L Chloride (98-107) mmol/L Carbon Dioxide (21-32) mmol/L Anion Gap (3-11) BUN (7-18) mg/dl Creatinine (0.6-1.2) mg/dl Est Cr Clr Drug Dosing ml/min Est GFR ( Amer) Est GFR (Non-Af Amer) BUN/Creatinine Ratio (10-20) Glucose (70-99) mg/dl Lactate (0.4-2.0) mmol/L Calcium (8.5-10.1) mg/dl Phosphorus (2.5-4.9) mg/dl Magnesium (1.8-2.4) mg/dl Total Bilirubin (0.2-1) mg/dl Direct Bilirubin (0-0.2) mg/dl AST (15-37) U/L ALT (12-78) U/L Alkaline Phosphatase (45-117) U/L Troponin I (0-0.045) ng/ml Total Protein (6.4-8.2) gm/dl Albumin (3.4-5.0) gm/dl Globulin (2.5-4.0) gm/dl Albumin/Globulin Ratio (0.9-2) Procalcitonin (0-0.5) ng/ml Urine Color Yellow Urine Appearance Clear (Clear) Urine pH 5.5 (4.5-7.5) Ur Specific [place] 1.015 (1.000-1.030) Urine Protein Negative (Negative) Urine Glucose (UA) Negative (Negative) Urine Ketones Negative (Negative) Urine Blood Negative (Negative) Urine Nitrite Negative (Negative) Urine Bilirubin Negative (Negative) Urine Urobilinogen Negative (Negative) Ur Leukocyte Esterase 1+ H (Negative) Urine WBC (Auto) 5-10 H (0-5) /hpf Urine RBC (Auto) 0-4 (0-4) /hpf U Hyaline Cast (Auto) 1-5 (0-5) /lpf U Epithel Cells (Auto) >30 H (0-5) /lpf Urine Bacteria (Auto) Negative (Negative) Administered Medications Albumin Human (Albumin 25%) 50 mls @ 50 mls/hr IV Q1H [facility] Last Admin: 08/27/20 00:58 Dose: 50 mls/hr Documented by: [id number] Infusion: 08/27/20 00:55 Dose: 50 mls/hr Documented by: [id number] Admin: 08/26/20 23:55 Dose: 50 mls/hr Documented by: [id number] Discontinued Medications Hydromorphone HCl (Hydromorphone Inj 1 Mg/Ml Syringe) 1 mg IV NOW STA Stop: 08/26/20 22:34 Last Admin: 08/26/20 22:44 Dose: 1 mg Documented by: [id number] Hydromorphone HCl (Hydromorphone Inj 0.5 Mg/0.5 Ml Syr) 0.5 mg IV NOW STA Stop: 08/26/20 23:28 Last Admin: 08/26/20 23:55 Dose: 0.5 mg Documented by: [id number] Hydromorphone HCl (Hydromorphone Inj 0.5 Mg/0.5 Ml Syr) 0.5 mg IV NOW STA Stop: 08/26/20 23:28 Last Admin: 08/26/20 23:55 Dose: Not Given Documented by: [id number] Sodium Chloride (Nss 1000ml) 1,000 mls @ 999 mls/hr IV .Q1H1M ONE Stop: 08/26/20 20:47 Last Admin: 08/26/20 20:33 Dose: 999 mls/hr Documented by: [id number] Acetaminophen (Ofirmev) 1,000 mg in 100 mls @ 400 mls/hr IV NOW STA Stop: 08/26/20 20:01 Last Infusion: 08/26/20 23:14 Dose: 0 mls/hr Documented by: [id number] Admin: 08/26/20 20:32 Dose: 400 mls/hr Documented by: [id number] Piperacillin Sod/Tazobactam Sod (Zosyn) 4.5 gm in 120 mls @ 240 mls/hr IV NOW ONE Stop: 08/26/20 20:16 Last Infusion: 08/26/20 23:15 Dose: 0 mls/hr Documented by: [id number] Admin: 08/26/20 20:33 Dose: 240 mls/hr Documented by: [id number] Vancomycin HCl 1,500 mg/ (Sodium Chloride) 530 mls @ 200 mls/hr IV NOW ONE Stop: 08/26/20 22:25 Last Admin: 08/26/20 20:33 Dose: 200 mls/hr Documented by: [id number] Ioversol (Optiray 320 125ml) 125 ml IV ONCE ONE Stop: 08/26/20 23:15 Last Admin: 08/26/20 23:15 Dose: 119 ml Documented by: [id number] Morphine Sulfate (Morphine Sulfate 4 Mg/Ml 1 Ml Carp\Vial) 4 mg IV NOW STA Stop: 08/26/20 19:48 Last Admin: 08/26/20 20:33 Dose: 4 mg Documented by: [id number] Discharge Plan Visit Data Chief Complaint: Fever Stated Complaint: FEVER ED Provider: Memo Rangel Discharge Problem: Sepsis, Follicular lymphoma, Chronic pain syndrome, Opioid dependence, Aortic stenosis Patient Disposition: Admitted As Inpatient Discharge Instructions Interventions: ED Discharge Assessment Last Done: 08/27/20 01:09 Discharge Problem: Sepsis Qualifiers: Sepsis type: sepsis due to unspecified organism Sepsis acute organ dysfunction status: with acute organ dysfunction Severe sepsis acute organ dysfunction type: unspecified Severe sepsis shock status: without septic shock Qualified Code(s): A41.9 - Sepsis, unspecified organism Follicular lymphoma Qualifiers: Follicular lymphoma type: unspecified follicular type Lymphoma site: unspecified region Qualified Code(s): C82.90 - Follicular lymphoma, unspecified, unspecified site
[2020-08-26] MEDS ORDERED: OPTIRAY 320 125ml IV ONE (23:14)
[2020-08-26] MEDS ORDERED: HYDROmorphone INJ 0.5 MG/0.5 ML SYR IV STA ×2 (23:27)
--- NOTE | 2020-08-26 23:54 | History & Physical Report ---
Date of Service August 26, 2020 Assessment & Plan (1) Aortic stenosis: Ms. Henry is a 75yo female with a PMHx significant for follicular lymphoma, aortic stenosis, chronic back pain and post-laminectomy syndrome with placement of an intrathecal pump, anxiety, GERD, HLD, HTN, insomnia and d epression who presents with a persistent fever and intractable back pain after a fall at home 4 days ago. Fever -Per daughter, pt more lethargic, not at baseline at home. Complaining of severe back pain in the ED. -Temp of 38.2 on admission, WBC >11, 000, procalcitonin of 0.57. UA unremarkable with only trace leukocyte esterase -No signs of cellulitis on exam, no Hx of loose, foul smelling stools -CTA chest with no evidence of pneumonia (notes 4.5cm aortic aneurysm, 8mm nodule in CAREY, axillary lymphadenopathy) -CT abd pelvis notes mild biliary duct dilation postcholecystectomy, CBD measures 11mm, no choledocholithiasis. No signs of infection noted otherwise. -Blood Cultures x2 pending -COVID NEGATIVE as of 08/08/2020 -Given Hx of aortic stenosis will rule out endocarditis with an echo ordered -fevers can also be secondary to Hx of lymphoma -treat empirically with Vancomycin and Zosyn -PRN tylenol for fever/pain Intractable Back Pain/Lumbar post Laminectomy Syndrome -Pt with intrathecal pump dispensing hydromorphone, bupivacaine, baclofen. Due for replacement on 09/03/2020. -received morphine and Dilaudid in the ED -Dilaudid 0.5mg q2h PRN ordered for pain -consider escalation in dose and frequency as needed -continue home cymbalta 120mg daily, gabapentin 100mg qhs -hold home acetaminophen and nabumetone 750mg BID -consider consult to Dr. López? -PT/OT pending -given fall at home (pt lives alone), consult to CM placed for discharge planning Elevated Troponins -Trops elevated to 0.643 on admission -EKG with noted sinus tach -Echo from 03/2020: EF 65-70%, mild LVH, moderate aortic stenosis, mild aortic regurgitation, Grade 1 diastolic dysfunction, no wall motion abnormalities -possibly secondary to increased demand in the setting of sepsis vs. primary cardiac process -repeat echo pending, r/o endocarditis as above -will continue to trend troponins Hypokalemia -K+ decreased to 3.2 -hold home HCTZ -replete as needed Hx of follicular Lymphoma -due for port placement after intrathecal pump replaced on 09/03 -will start chemotherapy once port placed HTN -currently hypotensive -s/p 2 bags of albumin in ED -hold home HCTZ as above GERD -continue prevacid 30mg daily or formulary alternative Insomnia/Depression/Anxiety -continue home melatonin, trazodone qhs -continue home cymbalta 120mg daily, gabapentin 100mg qhs HLD -not currently on a statin at home -consider, given 70% stenosis/calcified plaque noted in origin of L subclavian artery on CTA chest. FEN/GI: Heart healthy diet DVT prophylaxis: Heparin q12h CODE STATUS: Full code Dispo: PCU/tele (2) History of back problems: (3) Anxiety disorder, unspecified: (4) Presence of intrathecal pump: (5) Fever: (6) Persistent insomnia: History of Present Illness Primary Care Provider: Gunner Garcia MD Ms. Henry is a 75yo female with a PMHx significant for follicular lymphoma, aortic stenosis, chronic back pain and post-laminectomy syndrome with placement of an intrathecal pump, anxiety, GERD, HLD, HTN, insomnia and depression who presents with a persistent fever and intractable back pain after a fall at home 4 days ago. Hx was limited as pt was in severe pain during the interview, unable to lay down with daughter at bedside. Daughter states the pt lives alone and fell about 4 days ago. Daughter has been away for the last few days and upon returning today and checking on her mother, noted that she was more lethargic at home and sleeping more, definitely not herself. So she brought her in for further evaluation. States that a baseline, the pt uses a walker to get around. PMHx: As below Fam Hx : As below SH: Nonsmoker, no alcohol use, no recreational drug use. Lives alone, uses walker for ambulation at baseline. Daughter checks in her periodically. Allergies Allergy/AdvReac Type Severity Reaction Status Date / Time latex Allergy Mild contact Verified 08/26/20 22:05 dermatitis Sulfa (Sulfonamide Allergy Mild RASH Verified 08/26/20 22:05 Antibiotics) nickel Allergy Unknown contact Verified 08/26/20 22:05 dermatitis Home Medications Home Medications Medication Instructions Recorded Confirmed Type acetaminophen 500 mg tablet 1,000 mg PO Q6H PRN tab 07/27/18 08/26/20 History aspirin 81 mg tablet,delayed 81 mg PO HS 07/27/18 08/26/20 History release cholecalciferol (vitamin D3) 50 2,000 units PO QAM 07/27/18 08/26/20 History mcg (2,000 unit) capsule fexofenadine 180 mg tablet 180 mg PO QAM 07/27/18 08/26/20 History nicotine (polacrilex) 2 mg gum 2 mg BUCCAL Q2H 07/27/18 08/26/20 History vitamin B complex 1 tab PO QAM 07/27/18 08/26/20 History krill oil 500 mg capsule 500 mg PO QAM cap 06/29/19 08/26/20 History fluticasone propionate 50 2 sprays INTNAS DAILY PRN #47.4 gm 07/25/19 08/26/20 Rx mcg/actuation nasal spray,suspension ferrous sulfate 325 mg (65 mg 325 mg PO QAM 07/11/20 08/26/20 History iron) tablet melatonin 5 mg capsule 5 mg PO HS PRN cap 07/11/20 08/26/20 History calcium carbonate-vitamin D3 1 tab PO QAM 08/21/20 08/26/20 History [Calcium + D] duloxetine [Cymbalta] 120 mg PO QAM 08/21/20 08/26/20 History gabapentin [Neurontin] 100 mg PO HS 08/21/20 08/26/20 History hydrochlorothiazide 25 mg PO QAM 08/21/20 08/26/20 History lansoprazole [Prevacid] 30 mg PO QAM 08/21/20 08/26/20 History multivitamin 2 tab PO QAM 08/21/20 08/26/20 History nabumetone [Relafen] 750 mg PO BID 08/21/20 08/26/20 History trazodone 25 - 50 mg PO HS PRN 08/21/20 08/26/20 History baclofen 50 mcg/mL intrathecal 50 mcg INTRATHECAL DAILY 08/22/20 08/26/20 History solution morphine IR soln 1 applic IMPLANT UD 08/22/20 08/26/20 History Past Med/Surg History Medical History Anemia Anxiety Aortic stenosis MODERATE, EDWARD 1.1CM ON 03/20/20 ECHO. Atherosclerosis of aorta Chronic pain syndrome Degenerative disc disease Depression DVT (deep venous thrombosis) possibly, treated inpatient directly following knee replacement. no problems since. Emphysema of lung Noted on chest CTs but not reported by patient. Follicular lymphoma currently monitoring and treating with Dr Moseley (oncology). To have port placed for chemo by Dr Chow 09/17/20 Gastroesophageal reflux disease Hyperlipidemia Hypertension Lumbar canal stenosis Myofascial pain Osteoarthritis Peripheral edema Currently, L >R, 2/2 lymphoma. Wearing compression socks. Persistent insomnia Piriformis syndrome Post laminectomy syndrome Presence of intrathecal pump Urinary tract infection currently finishing abx (08/21/20). not recurrent infections typically Surgical History H/O cataract removal with insertion of prosthetic lens bilateral History of cholecystectomy 1978 History of colonoscopy History of knee replacement procedure of right knee 2002 History of laminectomy lumbar ~2012 Previous back surgery 2006,2007,2013 S/P hip replacement bilateral 2015, 2016 Status post laminectomy with spinal fusion lumbar, 2007 & 2008 Family History Father Abdominal aneurysm Colorectal cancer Grandmother (Paternal) Cancer Other No family history of adverse response to anesthesia Denies family history of Ovarian cancer Prostate cancer Myocardial infarction Breast cancer Social History Smoking Status: Unknown if ever smoked Second Hand Exposure: No; Hx Substance Use: No Preferred Language: Eritrean Communication Ability: Effective Visual Impairment: Limited Hearing Ability: Normal Acoustical Tile Patternmaker Required: No Beliefs That Will Affect Care: None marital status: / Current Living Situation: Alone current occupational status: retired Feels Safe at Home: Yes Childhood Exposure to Second-Hand Smoke: Yes caffeine: Yes Dental Care, Regularly: No Physical Activity Frequency: Does not Exercise Seatbelt Use: always Sunscreen Use: Yes Assistive Devices: Glasses Review of Systems Constitutional: + fever Respiratory: no cough and no dyspnea Cardiovascular: no chest pain and no palpitations Gastrointestinal: no abdominal pain, no nausea and no vomiting Musculoskeletal: + back pain Neurologic: + falls Psychiatric: + depression and + anxiety Physical Exam Physical Exam: General: Alert. In signifcant distress, sitting with legs over side of bed, holding daughter's hands crying out in pain Skin: Noted surgical scar on back Psych: Anxious mood Neuro: pain in back on palpation especially over lumbar spine HEENT: NC/AT Chest: Nontender to palpation. CV: RRR, Normal s1, s2. Blowing murmur appreciated Resp: Breath sounds clear bilaterally, no increased effort of breathing. No crackles/rhonchi/rales. Abdomen: Soft, nontender, nondistended. No guarding. Extremities: Trace edema in lower extremities bilaterally. Results & Data Results & Data ([facility]) Vital Signs (Past 12 Hours) Vital Signs Temp Pulse Pulse Resp BP BP Pulse Ox 08/26/20 23:17 99 H 16 110/68 98 08/26/20 22:00 100/58 L 08/26/20 21:30 102 H 19 102/52 L 08/26/20 20:43 105 H 18 102/64 98 08/26/20 20:18 98 08/26/20 19:00 38.2 C H 108 H 18 100/59 L 92 Code Status & VTE Plan VTE Prophylaxis Plan VTE Prophylaxis will be ordered: Yes Supervising Physician Co-Signing Physician Notes Attending addendum: I have physically seen this patient, have supervised the medical residents activities, and agree with the H&P unless as otherwise noted. Assessment and Plan: Febrile illness- Daughter reports temperature over the past 3 weeks. Was treated twice for urinary tract infections with antibiotics Patient has no specific signs of infection. Follow urine cultures and blood cultures. Covid negative on 08/08/2020 Patient with history of moderate aortic stenosis, would be concern regarding endocarditis as cause of symptoms. Order complete echocardiogram. We will need a WINSOME. Placed on Vanco and Zosyn IV empirically. Temperature may be secondary to underlying lymphoma. Will be consulting Dr. Verde Elevated troponin/moderate aortic stenosis- The patient will be admitted to telemetry for serial cardiac enzymes, serial EKG's, cardiac rhythm monitoring and a 2-D echocardiogram with Dopplers. Concern regarding endocarditis. Consult cardiology Intractable low back pain-recently had a change in her intrathecal pump. Consult pain management Continue other medications: Cymbalta, gabapentin Dilaudid controls pain for her but is very sedating at 1 and 0.5mg. trial of 0.2 mg if pain recurs. Remaining orders and notations as noted Resident Activity Tracking Resident Involvement: Resident Care Provided Care Provided: Adult Hospital Medicine (1) Anxiety disorder, unspecified Anxiety disorder type: generalized anxiety disorder Qualified Code(s): F41.1 - Generalized anxiety disorder (2) Aortic stenosis Cardiac valve disease etiology: etiology unspecified Qualified Code(s): I35.0 - Nonrheumatic aortic (valve) stenosis
[2020-08-26] MEDS: ALBUMIN 25% 50 ML IV SCH (23:55)
[2020-08-27] MEDS: ALBUMIN 25% 50 ML IV SCH ×6 (00:58→09:43)
[2020-08-27] MEDS ORDERED: POTASSIUM CHLORIDE 20 MEQ TABCR PO STA (02:05)
[2020-08-27] MEDS ORDERED: HYDROmorphone INJ 0.5 MG/0.5 ML SYR IV PRN (02:05)
[2020-08-27] MEDS ORDERED: PIPERACILL/TAZOBAC CONSULT ACTIVE PRN (02:05)
[2020-08-27] MEDS ORDERED: VANCOMYCIN CONSULT ACTIVE PRN (02:05)
[2020-08-27] MEDS ORDERED: MELATONIN 3 MG TAB PO PRN (02:16)
[2020-08-27 02:31] LABS: Basophils # (auto) 0.01 K/uL (0-0.2); Basophils % (auto) 0.1 %; Hematocrit (blood only) 28.4 % (37-47); Hemoglobin 9.1 g/dL (12.0-16.0); Immature Granulocytes # (auto) 0.03 K/uL (0.00-0.02); Immature Granulocytes % (auto) 0.3 %; Lymphocytes # (auto) 0.16 K/uL (1.2-3.4); Lymphocytes % (auto) 1.8 %; Mean Corpuscular Hemoglobin 27.5 pg (25-34); Mean Corpuscular Volume 85.8 fL (80-100); Mean Platelet Volume 8.8 fL (7.4-10.4); Monocytes # (auto) 0.17 K/uL (0.11-0.59); Monocytes % (auto) 1.9 %; Neutrophils # (auto) 8.42 K/uL (1.4-6.5); Neutrophils % (auto) 95.9 %; Platelet Count 423 K/uL (130-400); RDW Coefficient of Variation 13.4 % (11.5-14.5); RDW Standard Deviation 42.4 fL (36.4-46.3); Red Blood Count 3.31 M/uL (4.2-5.4); White Blood Count 8.79 K/uL (4.8-10.8)
[2020-08-27] MEDS: ACETAMINOPHEN 500 MG TAB PO PRN ×2 (03:42→16:43)
[2020-08-27] MEDS: PIPERACILLIN/TAZOBACTAM 3.375 GM in DEXTROSE 5% 100 ML IV SCH ×3 (03:52→18:38)
[2020-08-27] MEDS ORDERED: ACETAMINOPHEN 1000 MG/100 ML IV IV PRN (03:53)
[2020-08-27] MEDS: NSS + 20MEQ KCL 20 MEQ/1,000 ML BAG IV SCH ×3 (04:13→18:56)
[2020-08-27] MEDS ORDERED: ONDANSETRON INJ 2 MG/ML 2 ML VIAL IV PRN (06:06)
--- NOTE | 2020-08-27 06:22 | Billing Data ---
Date of Service August 27, 2020 Coding Level of Care Code 27542 Initial Inpt Care Lvl 3
--- NOTE | 2020-08-27 07:42 | CT Scan Report ---
CT ANGIOGRAM OF THE CHEST CLINICAL HISTORY: Shortness of breath, fever, sepsis. History of follicular lymphoma. COMPARISON STUDY: December 2019 TECHNIQUE: Following the IV administration of 119 mL of Optiray-320, CT angiogram of the thorax was p erformed from the thoracic inlet to the lung bases utilizing the pulmonary embolus protocol. Images a re reviewed in the axial, sagittal, and coronal planes. IV contrast was administered without complica tion. MIP imaging was performed. A dose lowering technique was utilized adhering to the principles o f ALARA. CT DOSE: 1863.79 mGy.cm FINDINGS: There is nodular enlargement of the left adrenal gland. There are mildly prominent supraclavicular submental and axillary lymph nodes. There is aneurysmal dilatation of the ascending thoracic aorta which measures 45 mm. There were no pulmonary artery filling defects to indicate acute pulmonary embolism. No pleural effusions are visualized. There is no pneumothorax. There is moderate pulmonary emphysema. There is no focal pulmonary consolid ation. There is elevation of the right hemidiaphragm. There is a 9 mm left upper lobe pulmonary nodul e. Although unchanged in size, it appears equivocally more solid than on the preceding study IMPRESSION: 1. Persistent dilatation of the ascending thoracic aorta which measures 45 mm. 2. No evidence of acute pulmonary embolism. 3. Pulmonary emphysema 4. 9 mm left upper lobe pulmonary nodule. Although unchanged in size, it appears equivocally more nasrin id than on the preceding study 5. Elevation right hemidiaphragm 6. 2 cm left adrenal nodule 7. Persistent prominent axillary supraclavicular lymph nodes. ACT 112: Negative or not required by law. Electronically signed by: Dat Ornelas M.D. 08/27/2020 7:41 AM
--- NOTE | 2020-08-27 08:42 | Ultrasound Report ---
BILATERAL LOWER EXTREMITY VENOUS DOPPLER CLINICAL HISTORY: BLE edema, sob. Lymphoma COMPARISON STUDY: Bilateral lower extremity venous Doppler ultrasound January 13, 2020. TECHNIQUE: Sonography of the deep venous system of the bilateral lower extremities was performed. Co mpression and augmentation were evaluated. FINDINGS: The bilateral common femoral, superficial femoral and popliteal veins were compressible al though the bilateral popliteal veins and calf veins were suboptimally assessed on this exam. Augmenta tion was normal. Enlarged left inguinal lymph nodes were noted. These are better depicted on CT of e abdomen and pelvis which will be reported separately. IMPRESSION: 1. Technically difficult exam but no evidence of deep venous thrombus within the bilateral lower extr emities. 2. Left inguinal lymphadenopathy, better depicted on CT of the abdomen and pelvis performed on 2019. ACT 112: Negative or not required by law. Electronically signed by: Jacob Trejo M.D. 08/27/2020 8:41 AM
--- NOTE | 2020-08-27 08:52 | XCELERA ---
[id number]
--- NOTE | 2020-08-27 08:53 | CT Scan Report ---
ABDOMEN AND PELVIS CT WITH IV CONTRAST HISTORY: Acute generalized abdominal pain with sepsis. History of lymphoma. sepsis, ?UTI TECHNIQUE: Multiaxial CT images of the abdomen and pelvis were performed following the IV administrat ion of 119 cc of Optiray 320, A dose lowering technique was utilized adhering to the principles of A MADELINE. COMPARISON STUDY: CT abdomen pelvis 01/04/2020, PET CT 08/20/2020. FINDINGS: Fusiform aneurysmal dilation of the ascending thoracic aorta is unchanged, 4.6 cm. Extensiv e coronary artery calcifications. Emphysema. Mild subsegmental bibasilar atelectasis. No pneumatosis or pneumoperitoneum. The spleen, pancreas and adrenal glands are unremarkable. Gallbladder appears to be surgically absent . There is unchanged intrahepatic and extrahepatic biliary ductal dilation which is likely postsurgic al. The liver is otherwise unremarkable. There are a few bilateral renal cysts measuring up to 2.3 cm within the inferior pole right kidney. U nchanged prominence of the bilateral renal pelves without abril hydronephrosis. Urinary bladder is no t well visualized secondary to streak artifact from bilateral hip total joint arthroplasties. Mixed p laque of the aorta without aneurysm. Confluent soft tissue thickening of the retroperitoneum, iliac c hains and presacral distribution have moderately improved from the 01/04/2020 exam. 11 mm retroperiton eal lymph node at the level of the kidneys on image 179 series 6 for example previously measured 1.9 cm. Enlarged right inguinal chain lymph node measuring 2.7 x 1.1 cm previously measured 3.1 x 1.5 cm. 2.7 x 1.9 cm left inguinal chain lymph node on image 391 series 6 previously measured 3.3 x 2.2 cm. No evidence of new or progressive disease. No bowel obstruction or bowel wall thickening. Nondilated loops of small bowel are noted with scatter ed air-fluid levels. Scattered air-fluid levels are also noted within several loops of large bowel. N oninflamed appendix. Battery pack of the anterior left abdominal wall. Demineralized appearance of th e bones. Degenerative changes of the spine, and pelvis.. Laminectomy with posterior interbody francisco javier and screw fusion and discectomy changes at L3-L5. The hardware appears intact. Chronic changes of the L5 vertebral body. Remote appearing T12 compression deformity. IMPRESSION: 1. No bowel obstruction or bowel wall thickening. 2. Scattered air-fluid levels within nondilated loops of large and small bowel may reflect a nonspeci fic enteritis with diarrheal illness. 3. Moderately decreased size of the pathologic adenopathy of the abdomen and pelvis compatible with p ositive treatment response. 4. Emphysema. 5. Unchanged aneurysmal dilation of the ascending thoracic aorta, 4.6 cm. 6. Additional findings as above. ACT 112: Negative or not required by law. The above report was generated using voice recognition software. It may contain grammatical, syntax o r spelling errors. Electronically signed by: Chaz Barajas M.D. 08/27/2020 8:52 AM
[2020-08-27] MEDS: MULTIVITAMIN TAB PO SCH (08:56)
[2020-08-27] MEDS: FERROUS SULFATE 325 MG TAB PO SCH (08:56)
[2020-08-27] MEDS: CHOLECALCIFEROL 1,000 UNITS 25 MCG TAB PO SCH (08:56)
[2020-08-27] MEDS: CALCIUM 600MG + VIT D 400 IU TAB PO SCH (08:56)
[2020-08-27] MEDS: VITAMIN B COMPLEX TAB PO SCH (08:56)
[2020-08-27] MEDS: FEXOFENADINE HCL 180 MG TAB PO SCH (08:57)
[2020-08-27] MEDS: HEPARIN SOD 5,000 UNIT/0.5 ML VIAL SQ SCH ×2 (08:57→21:55)
[2020-08-27] MEDS: PANTOprazole 40 MG TAB PO SCH (08:57)
[2020-08-27] MEDS: DULoxetine HCL 60 MG CAP PO SCH (08:57)
[2020-08-27] MEDS ORDERED: VANCOMYCIN HCL 1,250 MG in SODIUM CHLORIDE 0.9% 500 ML IV SCH (09:00)
[2020-08-27] MEDS ORDERED: VANCOMYCIN HCL 1,000 MG in SODIUM CHLORIDE 0.9% 250 ML IV SCH (09:00)
--- NOTE | 2020-08-27 09:01 | XRay Report ---
XR chest 1V portable CLINICAL HISTORY: SEPSIS COMPARISON STUDY: Chest CT January 04, 2020. FINDINGS: Elevation of the right hemidiaphragm is unchanged. Right basilar opacity represents atelect asis. There is no evidence for pulmonary edema. Cardiac mediastinal silhouette is stable. IMPRESSION: 1. No acute cardiopulmonary findings. No change in appearance of the chest. 2. Elevation of the right hemidiaphragm with right basilar opacity consistent with atelectasis. ACT 112: Negative or not required by law. Electronically signed by: Jacob Trejo M.D. 08/27/2020 9:00 AM
--- NOTE | 2020-08-27 09:03 | Pain Management Consultation ---
Date of Consultation August 27, 2020 Assessment & Plan (1) Post laminectomy syndrome: * No adjustments to intrathecal pump will be recommended at this time * Limit any utilization of IV or oral opiate therapy as the patient appears to be extremely sedate and is currently indicating minimal low back pain Present on Admission?: Yes (2) Presence of intrathecal pump: * Patient is tentatively planned for intrathecal pump revision/replacement for 09/03/2020 due to intrathecal pump battery end-of-life, but this will be canceled in light of her diagnosis of sepsis until at least 2 weeks after infection has cleared Present on Admission?: Yes (3) Sepsis: * Management per hospitalist team Sepsis acute organ dysfunction status: with acute organ dysfunction Sepsis type: sepsis due to unspecified organism Severe sepsis acute organ dysfunction type: unspecified Severe sepsis shock status: without septic shock Qualified Code(s): A41.9 - Sepsis, unspecified organism; R65.20 - Severe sepsis without septic shock Present on Admission?: Yes (4) Opioid dependence: Present on Admission?: Yes History of Present Illness Reason for Consultation: Intractable low back pain with presence of intrathecal hydromorphone pump Requesting Physician: Flori Puckett MD Attending Physician: Gloria Parson MD History of Present Illness Mrs. Henry is a 75-year-old white female who is well-known to the pain service due to her history of chronic intractable low back pain secondary to lumbar postlaminectomy syndrome which has required implantation of intrathecal pump and catheter delivery system currently utilizing hydromorphone 0.5666 mg/day, bupivacaine 2.833 mg/day and baclofen 66.10 mcg/day. Patient presented with persistent fever and intractable low back pain after a reported fall in the home 4-5 days ago. Patient's daughter reported the patient was more lethargic and sleepy at home. She had been reportedly treated for UTI with antibiotic therapy over the past 2 weeks. Patient currently being treated empirically with vancomycin and Zosyn with current fever of unknown origin. Patient also being followed by hematology/oncology for follicular lymphoma with plan for upcoming port placement. She is due to undergo intrathecal pump revision, which is currently scheduled on 09/03/2020 prior to port placement. Patient is currently reporting that her pain is significantly improved since the time of admission indicating that her current low back pain is a 1-2/10. Patient's pain is similar in location is characteristic as chronic without recent change in spite of her reported recent fall in the home. Patient is extremely sedate throughout the visit but was able to answer directed questions but would then fall back asleep quickly. She denied pain in the lower extremities at this time. She denied pain elsewhere today. She reported no further constitutional complaints. Plan of care discussed with Dr. Amy Erickson. Allergies Allergy/AdvReac Type Severity Reaction Status Date / Time latex Allergy Mild contact Verified 08/26/20 22:05 dermatitis Sulfa (Sulfonamide Allergy Mild RASH Verified 08/26/20 22:05 Antibiotics) nickel Allergy Unknown contact Verified 08/26/20 22:05 dermatitis Home Medications Home Medications Medication Instructions Recorded Confirmed Type acetaminophen 500 mg tablet 1,000 mg PO Q6H PRN tab 07/27/18 08/26/20 History aspirin 81 mg tablet,delayed 81 mg PO HS 07/27/18 08/26/20 History release cholecalciferol (vitamin D3) 50 2,000 units PO QAM 07/27/18 08/26/20 History mcg (2,000 unit) capsule fexofenadine 180 mg tablet 180 mg PO QAM 07/27/18 08/26/20 History nicotine (polacrilex) 2 mg gum 2 mg BUCCAL Q2H 07/27/18 08/26/20 History vitamin B complex 1 tab PO QAM 07/27/18 08/26/20 History krill oil 500 mg capsule 500 mg PO QAM cap 06/29/19 08/26/20 History fluticasone propionate 50 2 sprays INTNAS DAILY PRN #47.4 gm 07/25/19 08/26/20 Rx mcg/actuation nasal spray,suspension ferrous sulfate 325 mg (65 mg 325 mg PO QAM 07/11/20 08/26/20 History iron) tablet melatonin 5 mg capsule 5 mg PO HS PRN cap 07/11/20 08/26/20 History calcium carbonate-vitamin D3 1 tab PO QAM 08/21/20 08/26/20 History [Calcium + D] duloxetine [Cymbalta] 120 mg PO QAM 08/21/20 08/26/20 History gabapentin [Neurontin] 100 mg PO HS 08/21/20 08/26/20 History hydrochlorothiazide 25 mg PO QAM 08/21/20 08/26/20 History lansoprazole [Prevacid] 30 mg PO QAM 08/21/20 08/26/20 History multivitamin 2 tab PO QAM 08/21/20 08/26/20 History nabumetone [Relafen] 750 mg PO BID 08/21/20 08/26/20 History trazodone 25 - 50 mg PO HS PRN 08/21/20 08/26/20 History baclofen 50 mcg/mL intrathecal 50 mcg INTRATHECAL DAILY 08/22/20 08/26/20 History solution morphine IR soln 1 applic IMPLANT UD 08/22/20 08/26/20 History Patient History Medical History Anemia Anxiety Aortic stenosis MODERATE, EDWARD 1.1CM ON 03/20/20 ECHO. Atherosclerosis of aorta Chronic pain syndrome Degenerative disc disease Depression DVT (deep venous thrombosis) possibly, treated inpatient directly following knee replacement. no problems since. Emphysema of lung Noted on chest CTs but not reported by patient. Follicular lymphoma currently monitoring and treating with Dr Moseley (oncology). To have port placed for chemo by Dr Chow 09/17/20 Gastroesophageal reflux disease Hyperlipidemia Hypertension Lumbar canal stenosis Myofascial pain Osteoarthritis Peripheral edema Currently, L >R, 2/2 lymphoma. Wearing compression socks. Persistent insomnia Piriformis syndrome Post laminectomy syndrome Presence of intrathecal pump Urinary tract infection currently finishing abx (08/21/20). not recurrent infections typically Surgical History H/O cataract removal with insertion of prosthetic lens bilateral History of cholecystectomy 1978 History of colonoscopy History of knee replacement procedure of right knee 2002 History of laminectomy lumbar ~2013 Previous back surgery 2006,2007,2013 S/P hip replacement bilateral 2015, 2016 Status post laminectomy with spinal fusion lumbar, 2007 & 2008 Family History Father Abdominal aneurysm Colorectal cancer Grandmother (Paternal) Cancer Other No family history of adverse response to anesthesia Denies family history of Ovarian cancer Prostate cancer Myocardial infarction Breast cancer Social History Smoking Status: Unknown if ever smoked Second Hand Exposure: No; Hx Substance Use: No Preferred Language: Dominican Communication Ability: Effective Visual Impairment: Limited Hearing Ability: Normal L[employer] Clerk Required: No Beliefs That Will Affect Care: None marital status: / Current Living Situation: Alone current occupational status: retired Feels Safe at Home: Yes Childhood Exposure to Second-Hand Smoke: Yes caffeine: Yes Dental Care, Regularly: No Physical Activity Frequency: Does not Exercise Seatbelt Use: always Sunscreen Use: Yes Assistive Devices: Glasses Physical Exam Physical Exam: General: Patient sleeping upon entering. She was arousable and was able to answer directed questions. She quickly fell back asleep throughout the visit. Abdomen: Soft and nondistended. Pump site unremarkable without evidence of edema, erythema or skin breakdown in the left lower quadrant. Nontender to palpation. Back/spine: Complete loss of lumbar lordosis with well-healed midline surgical incision. Minimal generalized tenderness over the lumbosacral region. Patient was able to logroll for exam. Lower extremities: Sensation intact. There is edema of the distal pretibial and ankle region bilaterally. Neurologic: Ambulation not witnessed.
[2020-08-27 09:56] LABS: Albumin Level 2.3 gm/dl (3.4-5.0); Calcium 8.6 mg/dl (8.5-10.1); Creatinine Clr Calc Pharmacy 52.8 ml/min; Est GFR (African American) 65.1; Est GFR (Non-African American) 56.1; Potassium 2.8 mmol/L (3.5-5.1)
[2020-08-27] MEDS: BACLOFEN 50 MCG/ML ITR SCH (09:58)
[2020-08-27 10:08] LABS: Albumin Globulin Ratio 0.6 (0.9-2); Bilirubin,Total 1.9 mg/dl (0.2-1); Globulin 3.6 gm/dl (2.5-4.0); Total Protein 5.9 gm/dl (6.4-8.2); Troponin I 4.53 ng/ml (0-0.045)
[2020-08-27] MEDS: POLYETHYLENE (MIRALAX) 17 GM PACK PO SCH (10:09)
[2020-08-27] MEDS: DOCUSATE SODIUM/SENNA 50/8.6MG TAB PO SCH (10:09)
[2020-08-27] MEDS: POTASSIUM CHLORIDE / WTR 10 MEQ/100 ML PLCT IV SCH ×6 (10:23→22:51)
--- NOTE | 2020-08-27 10:39 | Cardiology Consultation ---
Date of Consultation August 27, 2020 Assessment & Plan (1) Fever: Likely secondary to gram-negative bacteremia. (2) Bacteremia due to Gram-negative bacteria: Await identification of gram-negative organism. Etiology uncertain, GI versus endocarditis. No obvious echocardiographic findings on transthoracic echocardiogram. Generally, would proceed to transesophageal echocardiogram, however patient is a poor candidate given her severe back pain (unable to complete recent PET scan, since she has difficulty maintaining a fixed position and lying still). Further recommendations once organism is identified (may need to treat empirically with antibiotics for 4 to 6 weeks, depending upon sensitivity). (3) Aortic stenosis: Moderate aortic stenosis, not likely lifestyle limiting (she ambulates with a walker and does not note dyspnea on exertion). (4) Follicular lymphoma: Status uncertain. As noted, she was unable to complete a PET scan to evaluate extent of her lymphoma. (5) History of back problems: Evaluated by pain management. History of Present Illness Reason for Consultation: r/o Endocarditis Requesting Physician: Benny Pedraza MD Attending Physician: Gloria Parson MD History of Present Illness 75-year-old woman with history of follicular severe chronic back pain/postlam inectomy syndrome lymphoma, moderate aortic stenosis, (intrathecal pump) and multiple other medical problems was admitted 08/26/2020 with persistent fever and intractable back pain after a fall at home 4 days ago. Since the etiology of her fever is not readily apparent (negative chest x-ray and urinalysis), the possibility of endocarditis is raised. Transthoracic echocardiogram shows no obvious vegetation and blood cultures are pending (initial finding gram-negative bacilli). When interviewed this morning, the patient was somewhat somnolent and noted only her significant severe back pain, she denied any chest pain, dyspnea, or other cardiopulmonary symptoms. Allergies Allergy/AdvReac Type Severity Reaction Status Date / Time latex Allergy Mild contact Verified 08/26/20 22:05 dermatitis Sulfa (Sulfonamide Allergy Mild RASH Verified 08/26/20 22:05 Antibiotics) nickel Allergy Unknown contact Verified 08/26/20 22:05 dermatitis Home Medications Home Medications Medication Instructions Recorded Confirmed Type acetaminophen 500 mg tablet 1,000 mg PO Q6H PRN tab 07/27/18 08/26/20 History aspirin 81 mg tablet,delayed 81 mg PO HS 07/27/18 08/26/20 History release cholecalciferol (vitamin D3) 50 2,000 units PO QAM 07/27/18 08/26/20 History mcg (2,000 unit) capsule fexofenadine 180 mg tablet 180 mg PO QAM 07/27/18 08/26/20 History nicotine (polacrilex) 2 mg gum 2 mg BUCCAL Q2H 07/27/18 08/26/20 History vitamin B complex 1 tab PO QAM 07/27/18 08/26/20 History krill oil 500 mg capsule 500 mg PO QAM cap 06/29/19 08/26/20 History fluticasone propionate 50 2 sprays INTNAS DAILY PRN #47.4 gm 07/25/19 08/26/20 Rx mcg/actuation nasal spray,suspension ferrous sulfate 325 mg (65 mg 325 mg PO QAM 07/11/20 08/26/20 History iron) tablet melatonin 5 mg capsule 5 mg PO HS PRN cap 07/11/20 08/26/20 History calcium carbonate-vitamin D3 1 tab PO QAM 08/21/20 08/26/20 History [Calcium + D] duloxetine [Cymbalta] 120 mg PO QAM 08/21/20 08/26/20 History gabapentin [Neurontin] 100 mg PO HS 08/21/20 08/26/20 History hydrochlorothiazide 25 mg PO QAM 08/21/20 08/26/20 History lansoprazole [Prevacid] 30 mg PO QAM 08/21/20 08/26/20 History multivitamin 2 tab PO QAM 08/21/20 08/26/20 History nabumetone [Relafen] 750 mg PO BID 08/21/20 08/26/20 History trazodone 25 - 50 mg PO HS PRN 08/21/20 08/26/20 History baclofen 50 mcg/mL intrathecal 50 mcg INTRATHECAL DAILY 08/22/20 08/26/20 History solution morphine IR soln 1 applic IMPLANT UD 08/22/20 08/26/20 History Patient History Medical History Anemia Anxiety Aortic stenosis MODERATE, EDWARD 1.1CM ON 03/20/20 ECHO. Atherosclerosis of aorta Chronic pain syndrome Degenerative disc disease Depression DVT (deep venous thrombosis) possibly, treated inpatient directly following knee replacement. no problems since. Emphysema of lung Noted on chest CTs but not reported by patient. Follicular lymphoma currently monitoring and treating with Dr Moseley (oncology). To have port placed for chemo by Dr Chow 09/17/20 Gastroesophageal reflux disease Hyperlipidemia Hypertension Lumbar canal stenosis Myofascial pain Osteoarthritis Peripheral edema Currently, L >R, 2/2 lymphoma. Wearing compression socks. Persistent insomnia Piriformis syndrome Post laminectomy syndrome Presence of intrathecal pump Urinary tract infection currently finishing abx (08/21/20). not recurrent infections typically Surgical History H/O cataract removal with insertion of prosthetic lens bilateral History of cholecystectomy 1978 History of colonoscopy History of knee replacement procedure of right knee 2002 History of laminectomy lumbar ~2013 Previous back surgery 2006,2007,2013 S/P hip replacement bilateral 2015, 2016 Status post laminectomy with spinal fusion lumbar, 2007 & 2008 Family History No family history of adverse response to anesthesia Abdominal aneurysm Father Colorectal cancer Father Cancer Grandmother (Paternal) Denies family history of Ovarian cancer Prostate cancer Myocardial infarction Breast cancer Social History Smoking Status: Unknown if ever smoked Second Hand Exposure: No; Hx Substance Use: No Preferred Language: Malay Communication Ability: Effective Visual Impairment: Limited Hearing Ability: Normal Lumber Mover Required: No Beliefs That Will Affect Care: None marital status: / Current Living Situation: Alone current occupational status: retired Feels Safe at Home: Yes Childhood Exposure to Second-Hand Smoke: Yes caffeine: Yes Dental Care, Regularly: No Physical Activity Frequency: Does not Exercise Seatbelt Use: always Sunscreen Use: Yes Assistive Devices: Glasses Review of Systems Review of Systems: Not readily obtainable, due to the patient's somnolence and reticent speech. Physical Exam Physical Exam: Elderly white female appears chronically ill but not acutely distressed. T-max 104.4, current temperature 99.1. Normotensive. Mildly tachycardic (111 bpm), normal respiratory rate. Skin: No stigmata of SBE or generalized lesions. HEENT: Unremarkable. Neck: Jugular venous pulse not elevated, bilateral transmitted murmur to carotids. Lungs: Poor inspiratory effort, no obvious crackles or wheezes. Cardiac: Regular/mildly tachycardic rhythm with 3/6 crescendo decrescendo systolic ejection murmur right upper sternal border rating to the carotids, 3/6 apical holosystolic murmur radiating to the axilla. No diastolic murmur. Aortic closure sound markedly diminished (barely audible, difficult with tachycardia). Abdomen: Nondistended. Extremities: No edema, pulses intact. Neurologic: Somnolent, reticent affect, grossly nonfocal. Results & Data ([facility]) Laboratory Results WBC dropped from 11.5-8.8 this morning. Hemoglobin dropped from 10.7-9.1. Coagulation studies were normal. Electrolytes notable for potassium of 2.8, BUN 20, creatinine 0.99. Troponin increased from 0.6-4.5 overnight. Albumin 2.3. Blood cultures with gram-negative bacilli. Diagnostic Findings Echocardiogram today showed normal systolic function with no wall motion abnormalities, moderate LVH, moderate AI/mild AI with no obvious vegetations, moderate mitral regurgitation and mild tricuspid regurgitation with moderate pulmonary hypertension. No interatrial shunt on contrast study. ECG 08/26/2020 showed sinus tachycardia 108 bpm with diffuse minor ST dep ression. Monitor overnight showed sinus rhythm with PACs and occasional short atrial runs. No heart block. Chest x-ray showed no acute findings. Elevated right hemidiaphragm with right basilar atelectasis. Chest CT showed ascending thoracic aorta 4.5 cm, no pulmonary embolism, evidence of pulmonary emphysema, stable left upper lobe pulmonary nodule, elevated right hemidiaphragm, prominent axillary supraclavicular lymph nodes. PG Care Time/CCT Total # of Minutes Spent Total Time Spent with Patient: Total time spent is greater than 50% in coordination of care (as documented) at patient's floor/unit and/or counseling patient: Coding Level of Care Code 96980 Initial Inpt Care Lvl 3 Diagnoses Fever R50.9 Bacteremia due to Gram-negative bacteria R78.81 Aortic stenosis I35.0 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 Follicular lymphoma type: unspecified follicular type Lymphoma site: unspecified region History of back problems (1) Follicular lymphoma Follicular lymphoma type: unspecified follicular type Lymphoma site: unspecified region Qualified Code(s): C82.90 - Follicular lymphoma, unspecified, unspecified site
--- NOTE | 2020-08-27 12:32 | Hospitalist Progress Note ---
Date of Service August 27, 2020 Assessment & Plan (1) Septicemia: Ms. Henry is a 75yo female with a PMHx significant for follicular lymphoma, aortic stenosis, chronic back pain and post-laminectomy syndrome with placement of an intrathecal pump, anxiety, GERD, HLD, HTN, insomnia and depres jacy who presents with a persistent fever x2 weeks and intractable back pain after a fall at home 4 days ago. Has been treated for UTIs with 2 rounds of Macrobid in the last 2 weeks. Fever-persists today, now growing gram-negative bacilli in blood cultures-most likely secondary to UTI With acute metabolic encephalopathy upon presentation which seems to be improving somewhat Back pain likely secondary to developing pyelonephritis CT abdomen/pelvis performed on the evening of admission shows no bowel obstruction or bowel wall thickening, nonspecific enteritis, some pathologic adenopathy improved from previous, emphysema, unchanged aneurysmal dilation of the ascending thoracic aorta 4.6 cm, status post cholecystectomy and with normal liver. She did also have prominence of the bilateral renal pelvis ease without abril hydronephrosis Urinalysis here with epithelial cells contaminating, 5-10 WBCs and 1+ leukocyte esterase, negative for bacteria, but also recently completed another course of Macrobid which could be making her have a false negative urinalysis A urine culture was not sent -CTA chest with no evidence of pneumonia (notes 4.5cm aortic aneurysm, 8mm nodule in CAREY, axillary lymphadenopathy) -COVID NEGATIVE as of 08/08/2020 -Temp of 38.2 on admission, WBC >11, 000 and is now improved down to 8, procalcitonin of 0.57. LFTs mildly elevated today but no abdominal pain and no findings to explain this on CT from 12 hours before-likely secondary to sepsis Echocardiogram without vegetation and with gram-negative bacilli most likely not endocarditis -Repeat blood cultures this evening at the 24-hour cassandra from the last 1 -Continue Zosyn but can discontinue vancomycin -Continue IV fluids at current rate of 100 mL/hr -Follow CBC, CMP in the morning (2) Elevated troponin: -Trops elevated to 0.643 on admission and has now trended up to 7 -EKG with noted sinus tach, absence of chest pain at all Appreciate cardiology consultation-discussed with cardiology-most likely myocardial demand ischemia Echocardiogram here without wall motion abnormalities and with preserved EF, moderate aortic stenosis -Continue to trend troponin until peaks (3) Fever: Secondary to septicemia as above Tylenol as needed (4) Presence of intrathecal pump: Seen by pain management here, she will have a delay in the replacement of the battery of her intrathecal pump until 2 weeks after finished with antibiotics for septicemia Has hydromorphone, bupivacaine, and baclofen in her pump (5) Persistent insomnia: Continue home meds (6) Hypokalemia: Potassium low again today at 2.8 -Continue to hold home HCTZ -replete with IV potassium riders and IV fluids with potassium Follow BMP and magnesium in the morning (7) Constipation: Ordered MiraLAX and senna/docusate She did have a bowel movement on the morning of 08/27 (8) Peripheral edema: Secondary to lymphedema most likely Doppler of lower extremities on admission was negative for DVT (9) Gastroesophageal reflux disease: -continue PPI (10) Depression: Continue home meds (11) Chronic pain syndrome: Intractable Back Pain/Lumbar post Laminectomy Syndrome -Pt with intrathecal pump dispensing hydromorphone, bupivacaine, baclofen. Due for replacement on 09/03/2020. -received morphine and Dilaudid in the ED -Dilaudid 0.5mg q2h PRN ordered for pain but pain management recommends against this-we will discontinue -continue home cymbalta 120mg daily, gabapentin 100mg qhs Holding home nabumetone 750mg BID Appreciate pain management consultation -PT/OT pending -given fall at home (pt lives alone), consult to CM placed for discharge planning (12) Hyperlipidemia: On Krill oil at home-holding while inpatient (13) Hypertension: -hypotensive upon admission which is now improved after IV fluid resuscitation and IV albumin -s/p 2 bags of albumin in ED -Continue to hold home HCTZ (14) Follicular lymphoma: -due for port placement after intrathecal pump replaced which will now be delayed due to septicemia -will start chemotherapy once port placed (15) Aortic stenosis: Moderate as noted on echocardiogram Avoid extremes of volume and hypotension (16) Anxiety disorder, unspecified: Insomnia/Depression/Anxiety -continue home melatonin, trazodone qhs -continue home cymbalta 120mg daily, gabapentin 100mg qhs Add on hydroxyzine 10 mg p.o. daily as needed at daughter's request for something extra for anxiety (17) DVT prophylaxis: Heparin SQ Disposition-continued stay on PCU Admission and Anticipated Discharge Date Admission Date: August 26, 2020 Subjective Patient was having a lot of lower back pain today much worse than her usual chronic back pain. This has been going on for 2 weeks with fevers as per daughter at the bedside. Patient has been more confused than usual. She seems a little bit better today than what was previously described. Still spiking fevers today. Blood cultures are growing gram-negative bacilli. She denies any chest pain or shortness of breath but remains on 2 L nasal cannula. She did have a bowel movement this morning after complaining of significant constipation. Telemetry with sinus tachycardia rates in the 110s, short runs of PACs Review of Systems Review of Systems: All systems reviewed & are unremarkable except as noted in HPI & below +constipation Physical Exam Constitutional: WD/WN, vitals as above Eyes: + anicteric sclerae Neck: trachea midline, no thyromegaly Respiratory: normal respiratory effort, lungs clear to auscultation Cardiovascular: Rate/Rhythm: regular rate and regular rhythm Heart Sounds: + murmur (2/6 KENDRA at RUSB) Extremities: no edema Chest (Breasts): Chest: normal inspection of chest Gastrointestinal (Abdomen): normal bowel sounds, soft, nontender, no hepatosplenomegaly Musculoskeletal: Extremities: extremities normal to inspection; no cyanosis and no clubbing Skin: no rashes, warm and dry Neurologic: moves all extremities and awake; no focal motor deficits Psychiatric: Orientation: alert, oriented to person, oriented to place and cooperative Eye Contact: + fair eye contact Affect: + anxious affect Lymphatic: no lymphedema Results & Data Results & Data ([facility]) Vital Signs (Past 12 Hours) Vital Signs Temp Pulse Pulse Resp BP BP Pulse Ox 08/27/20 11:37 37.8 C H 116 H 20 100/64 96 08/27/20 08:21 37.3 C 111 H 19 106/68 90 08/27/20 08:00 112 H 08/27/20 06:00 16 08/27/20 05:34 37.5 C 08/27/20 05:30 18 08/27/20 05:00 18 08/27/20 04:30 18 08/27/20 04:00 18 98 08/27/20 03:57 40.2 C H 127 H 18 101/64 98 08/27/20 03:30 40.2 C H 18 08/27/20 03:00 16 08/27/20 02:30 15 94 08/27/20 02:22 129 H 08/27/20 02:08 37.7 C H 124 H 20 89/45 L 96 08/27/20 02:00 12 94 08/27/20 01:00 122 H 18 113/58 L 08/27/20 00:30 125 H 18 Laboratory Results 08/27/20 08/27/20 08/27/20 Range/Units 09:09 02:18 02:18 WBC 8.79 (4.8-10.8) K/uL RBC 3.31 L (4.2-5.4) M/uL Hgb 9.1 L (12.0-16.0) g/dL Hct 28.4 L (37-47) % MCV 85.8 (80-100) fL MCH 27.5 (25-34) pg MCHC 32.0 (32-36) g/dL RDW Std Deviation 42.4 (36.4-46.3) fL RDW Coeff of Inge 13.4 (11.5-14.5) % Plt Count 423 H (130-400) K/uL MPV 8.8 (7.4-10.4) fL Immature Gran % (Auto) 0.3 % Neut % (Auto) 95.9 % Lymph % (Auto) 1.8 % Hendricks % (Auto) 1.9 % Eos % (Auto) 0.0 % Baso % (Auto) 0.1 % Neut # (Auto) 8.42 H (1.4-6.5) K/uL Lymph # (Auto) 0.16 L (1.2-3.4) K/uL Hendricks # (Auto) 0.17 (0.11-0.59) K/uL Eos # (Auto) 0.00 (0-0.5) K/uL Baso # (Auto) 0.01 (0-0.2) K/uL Immature Gran # (Auto) 0.03 H (0.00-0.02) K/uL PT (9.0-12.0) Seconds INR (0.9-1.1) APTT (21.0-31.0) Seconds PTT Ratio VBG pH (7.36-7.41) VBG pCO2 (38-50) mmHg VBG pO2 mmHg VBG HCO3 mmol/L VBG O2 Saturation % VBG Base Excess mEq/L Barometric Pressure mm/Hg Sodium 140 (136-145) mmol/L Potassium 2.8 L (3.5-5.1) mmol/L Chloride 102 (98-107) mmol/L Carbon Dioxide 28 (21-32) mmol/L Anion Gap 10.0 (3-11) BUN 20 H (7-18) mg/dl Creatinine 0.99 (0.6-1.2) mg/dl Est Cr Clr Drug Dosing 52.8 ml/min Est GFR ( Amer) 65.1 Est GFR (Non-Af Amer) 56.1 BUN/Creatinine Ratio 20.0 (10-20) Glucose 116 H (70-99) mg/dl Lactate (0.4-2.0) mmol/L Calcium 8.6 (8.5-10.1) mg/dl Phosphorus (2.5-4.9) mg/dl Magnesium (1.8-2.4) mg/dl Total Bilirubin 1.9 H D (0.2-1) mg/dl Direct Bilirubin (0-0.2) mg/dl AST 83 H (15-37) U/L ALT 49 (12-78) U/L Alkaline Phosphatase 143 H (45-117) U/L Troponin I 4.530 H* 1.260 H* (0-0.045) ng/ml Total Protein 5.9 L D (6.4-8.2) gm/dl Albumin 2.3 L (3.4-5.0) gm/dl Globulin 3.6 (2.5-4.0) gm/dl Albumin/Globulin Ratio 0.6 L (0.9-2) Procalcitonin (0-0.5) ng/ml Urine Color Urine Appearance (Clear) Urine pH (4.5-7.5) Ur Specific [place] (1.000-1.030) Urine Protein (Negative) Urine Glucose (UA) (Negative) Urine Ketones (Negative) Urine Blood (Negative) Urine Nitrite (Negative) Urine Bilirubin (Negative) Urine Urobilinogen (Negative) Ur Leukocyte Esterase (Negative) Urine WBC (Auto) (0-5) /hpf Urine RBC (Auto) (0-4) /hpf U Hyaline Cast (Auto) (0-5) /lpf U Epithel Cells (Auto) (0-5) /lpf Urine Bacteria (Auto) (Negative) 08/26/20 08/26/20 08/26/20 Range/Units 22:15 20:28 20:28 WBC (4.8-10.8) K/uL RBC (4.2-5.4) M/uL Hgb (12.0-16.0) g/dL Hct (37-47) % MCV (80-100) fL MCH (25-34) pg MCHC (32-36) g/dL RDW Std Deviation (36.4-46.3) fL RDW Coeff of Inge (11.5-14.5) % Plt Count (130-400) K/uL MPV (7.4-10.4) fL Immature Gran % (Auto) % Neut % (Auto) % Lymph % (Auto) % Hendricks % (Auto) % Eos % (Auto) % Baso % (Auto) % Neut # (Auto) (1.4-6.5) K/uL Lymph # (Auto) (1.2-3.4) K/uL Hendricks # (Auto) (0.11-0.59) K/uL Eos # (Auto) (0-0.5) K/uL Baso # (Auto) (0-0.2) K/uL Immature Gran # (Auto) (0.00-0.02) K/uL PT (9.0-12.0) Seconds INR (0.9-1.1) APTT (21.0-31.0) Seconds PTT Ratio VBG pH 7.41 (7.36-7.41) VBG pCO2 51 H (38-50) mmHg VBG pO2 20 mmHg VBG HCO3 32 mmol/L VBG O2 Saturation < 60.0 % VBG Base Excess 5.8 mEq/L Barometric Pressure 738.6 mm/Hg Sodium (136-145) mmol/L Potassium (3.5-5.1) mmol/L Chloride (98-107) mmol/L Carbon Dioxide (21-32) mmol/L Anion Gap (3-11) BUN (7-18) mg/dl Creatinine (0.6-1.2) mg/dl Est Cr Clr Drug Dosing ml/min Est GFR ( Amer) Est GFR (Non-Af Amer) BUN/Creatinine Ratio (10-20) Glucose (70-99) mg/dl Lactate 1.0 (0.4-2.0) mmol/L Calcium (8.5-10.1) mg/dl Phosphorus (2.5-4.9) mg/dl Magnesium (1.8-2.4) mg/dl Total Bilirubin (0.2-1) mg/dl Direct Bilirubin (0-0.2) mg/dl AST (15-37) U/L ALT (12-78) U/L Alkaline Phosphatase (45-117) U/L Troponin I (0-0.045) ng/ml Total Protein (6.4-8.2) gm/dl Albumin (3.4-5.0) gm/dl Globulin (2.5-4.0) gm/dl Albumin/Globulin Ratio (0.9-2) Procalcitonin (0-0.5) ng/ml Urine Color Yellow Urine Appearance Clear (Clear) Urine pH 5.5 (4.5-7.5) Ur Specific [place] 1.015 (1.000-1.030) Urine Protein Negative (Negative) Urine Glucose (UA) Negative (Negative) Urine Ketones Negative (Negative) Urine Blood Negative (Negative) Urine Nitrite Negative (Negative) Urine Bilirubin Negative (Negative) Urine Urobilinogen Negative (Negative) Ur Leukocyte Esterase 1+ H (Negative) Urine WBC (Auto) 5-10 H (0-5) /hpf Urine RBC (Auto) 0-4 (0-4) /hpf U Hyaline Cast (Auto) 1-5 (0-5) /lpf U Epithel Cells (Auto) >30 H (0-5) /lpf Urine Bacteria (Auto) Negative (Negative) 08/26/20 08/26/20 08/26/20 Range/Units 20:28 20:28 20:28 WBC 11.53 H (4.8-10.8) K/uL RBC 3.88 L (4.2-5.4) M/uL Hgb 10.7 L (12.0-16.0) g/dL Hct 33.7 L (37-47) % MCV 86.9 (80-100) fL MCH 27.6 (25-34) pg MCHC 31.8 L (32-36) g/dL RDW Std Deviation 43.1 (36.4-46.3) fL RDW Coeff of Inge 13.6 (11.5-14.5) % Plt Count 586 H (130-400) K/uL MPV 9.1 (7.4-10.4) fL Immature Gran % (Auto) 0.3 % Neut % (Auto) 93.9 % Lymph % (Auto) 2.9 % Hendricks % (Auto) 2.7 % Eos % (Auto) 0.0 % Baso % (Auto) 0.2 % Neut # (Auto) 10.84 H (1.4-6.5) K/uL Lymph # (Auto) 0.33 L (1.2-3.4) K/uL Hendricks # (Auto) 0.31 (0.11-0.59) K/uL Eos # (Auto) 0.00 (0-0.5) K/uL Baso # (Auto) 0.02 (0-0.2) K/uL Immature Gran # (Auto) 0.03 H (0.00-0.02) K/uL PT 12.0 (9.0-12.0) Seconds INR 1.1 (0.9-1.1) APTT 27.2 (21.0-31.0) Seconds PTT Ratio 1.0 VBG pH (7.36-7.41) VBG pCO2 (38-50) mmHg VBG pO2 mmHg VBG HCO3 mmol/L VBG O2 Saturation % VBG Base Excess mEq/L Barometric Pressure mm/Hg Sodium 138 (136-145) mmol/L Potassium 3.2 L (3.5-5.1) mmol/L Chloride 98 (98-107) mmol/L Carbon Dioxide 32 (21-32) mmol/L Anion Gap 8.0 (3-11) BUN 19 H (7-18) mg/dl Creatinine 0.99 (0.6-1.2) mg/dl Est Cr Clr Drug Dosing 54.3 ml/min Est GFR ( Amer) 65.1 Est GFR (Non-Af Amer) 56.1 BUN/Creatinine Ratio 19.1 (10-20) Glucose 105 H (70-99) mg/dl Lactate (0.4-2.0) mmol/L Calcium 9.7 (8.5-10.1) mg/dl Phosphorus 3.4 (2.5-4.9) mg/dl Magnesium 2.0 (1.8-2.4) mg/dl Total Bilirubin 0.9 (0.2-1) mg/dl Direct Bilirubin 0.3 H (0-0.2) mg/dl AST 27 (15-37) U/L ALT 23 (12-78) U/L Alkaline Phosphatase 158 H (45-117) U/L Troponin I 0.643 H* (0-0.045) ng/ml Total Protein 7.7 (6.4-8.2) gm/dl Albumin 2.9 L (3.4-5.0) gm/dl Globulin 4.8 H (2.5-4.0) gm/dl Albumin/Globulin Ratio 0.6 L (0.9-2) Procalcitonin (0-0.5) ng/ml Urine Color Urine Appearance (Clear) Urine pH (4.5-7.5) Ur Specific [place] (1.000-1.030) Urine Protein (Negative) Urine Glucose (UA) (Negative) Urine Ketones (Negative) Urine Blood (Negative) Urine Nitrite (Negative) Urine Bilirubin (Negative) Urine Urobilinogen (Negative) Ur Leukocyte Esterase (Negative) Urine WBC (Auto) (0-5) /hpf Urine RBC (Auto) (0-4) /hpf U Hyaline Cast (Auto) (0-5) /lpf U Epithel Cells (Auto) (0-5) /lpf Urine Bacteria (Auto) (Negative) 08/26/20 Range/Units 20:28 WBC (4.8-10.8) K/uL RBC (4.2-5.4) M/uL Hgb (12.0-16.0) g/dL Hct (37-47) % MCV (80-100) fL MCH (25-34) pg MCHC (32-36) g/dL RDW Std Deviation (36.4-46.3) fL RDW Coeff of Inge (11.5-14.5) % Plt Count (130-400) K/uL MPV (7.4-10.4) fL Immature Gran % (Auto) % Neut % (Auto) % Lymph % (Auto) % Hendricks % (Auto) % Eos % (Auto) % Baso % (Auto) % Neut # (Auto) (1.4-6.5) K/uL Lymph # (Auto) (1.2-3.4) K/uL Hendricks # (Auto) (0.11-0.59) K/uL Eos # (Auto) (0-0.5) K/uL Baso # (Auto) (0-0.2) K/uL Immature Gran # (Auto) (0.00-0.02) K/uL PT (9.0-12.0) Seconds INR (0.9-1.1) APTT (21.0-31.0) Seconds PTT Ratio VBG pH (7.36-7.41) VBG pCO2 (38-50) mmHg VBG pO2 mmHg VBG HCO3 mmol/L VBG O2 Saturation % VBG Base Excess mEq/L Barometric Pressure mm/Hg Sodium (136-145) mmol/L Potassium (3.5-5.1) mmol/L Chloride (98-107) mmol/L Carbon Dioxide (21-32) mmol/L Anion Gap (3-11) BUN (7-18) mg/dl Creatinine (0.6-1.2) mg/dl Est Cr Clr Drug Dosing ml/min Est GFR ( Amer) Est GFR (Non-Af Amer) BUN/Creatinine Ratio (10-20) Glucose (70-99) mg/dl Lactate (0.4-2.0) mmol/L Calcium (8.5-10.1) mg/dl Phosphorus (2.5-4.9) mg/dl Magnesium (1.8-2.4) mg/dl Total Bilirubin (0.2-1) mg/dl Direct Bilirubin (0-0.2) mg/dl AST (15-37) U/L ALT (12-78) U/L Alkaline Phosphatase (45-117) U/L Troponin I (0-0.045) ng/ml Total Protein (6.4-8.2) gm/dl Albumin (3.4-5.0) gm/dl Globulin (2.5-4.0) gm/dl Albumin/Globulin Ratio (0.9-2) Procalcitonin 0.57 H (0-0.5) ng/ml Urine Color Urine Appearance (Clear) Urine pH (4.5-7.5) Ur Specific [place] (1.000-1.030) Urine Protein (Negative) Urine Glucose (UA) (Negative) Urine Ketones (Negative) Urine Blood (Negative) Urine Nitrite (Negative) Urine Bilirubin (Negative) Urine Urobilinogen (Negative) Ur Leukocyte Esterase (Negative) Urine WBC (Auto) (0-5) /hpf Urine RBC (Auto) (0-4) /hpf U Hyaline Cast (Auto) (0-5) /lpf U Epithel Cells (Auto) (0-5) /lpf Urine Bacteria (Auto) (Negative) Blood cultures 2/2 sets with gram-negative bacilli PG Care Time/CCT Total # of Minutes Spent Total Time Spent with Patient: Total time spent is greater than 50% in coordination of care (as documented) at patient's floor/unit and/or counseling patient: Coding Level of Care Code 42191 Subseq Hosp Care Lvl 3 Diagnoses Septicemia A41.9 Elevated troponin R77.8 Fever R50.9 Presence of intrathecal pump Z96.89 Persistent insomnia G47.00 Hypokalemia E87.6 Constipation K59.00 Peripheral edema R60.9 Gastroesophageal reflux disease K21.9 Depression F32.9 Chronic pain syndrome G89.4 Hyperlipidemia E78.5 Hyperlipidemia type: unspecified Hypertension I10 Hypertension type: essential hypertension 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 Follicular lymphoma type: unspecified follicular type Lymphoma site: unspecified region Aortic stenosis I35.0 Anxiety disorder, unspecified F41.1 Anxiety disorder type: generalized anxiety disorder DVT prophylaxis Z29.9 (1) Anxiety disorder, unspecified Anxiety disorder type: generalized anxiety disorder Qualified Code(s): F41.1 - Generalized anxiety disorder (2) Hyperlipidemia Hyperlipidemia type: unspecified Qualified Code(s): E78.5 - Hyperlipidemia, unspecified (3) Follicular lymphoma Follicular lymphoma type: unspecified follicular type Lymphoma site: unspecified region Qualified Code(s): C82.90 - Follicular lymphoma, unspecified, unspecified site (4) Hypertension Hypertension type: essential hypertension Qualified Code(s): I10 - Essential (primary) hypertension
--- NOTE | 2020-08-27 12:47 | Electrocardiogram Report ---
Test Reason : Blood Pressure : / mmHG Vent. Rate : 108 BPM Atrial Rate : 108 BPM P-R Int : 166 ms QRS Dur : 082 ms QT Int : 348 ms P-R-T Axes : 074 040 089 degrees QTc Int : 466 ms Poor data quality, interpretation may be adversely affected Sinus tachycardia ST depression in Anterior leads , consider ischemia Abnormal ECG When compared with ECG of 23-AUG-2020 12:53, Premature ventricular complexes are no longer Present ST depression in Anterior leads now present Confirmed by Marshal Connor ([id number]) on 08/27/2020 12:47:44 PM Referred By: REFERRED SELF Confirmed By:Marshal Connor
[2020-08-27] MEDS: hydrOXYzine HCl 10 MG TAB PO PRN (13:32)
--- NOTE | 2020-08-27 14:03 | Electrocardiogram Report ---
Test Reason : Blood Pressure : / mmHG Vent. Rate : 115 BPM Atrial Rate : 115 BPM P-R Int : 150 ms QRS Dur : 084 ms QT Int : 336 ms P-R-T Axes : 076 036 102 degrees QTc Int : [address] depression in Anterior leads Abnormal ECG When compared with ECG of 26-AUG-2020 20:18, ST depression in Anterior leads less pronounced Confirmed by Marshal Connor ([id number]) on 08/27/2020 2:03:13 PM Referred By: REFERRED SELF Confirmed By:Marshal Connor
[2020-08-27] MEDS ORDERED: SODIUM CHLORIDE 0.9% 1000ML 1,000 ML IV SCH (20:15)
[2020-08-27 20:40] LABS: Basophils # (auto) 0.02 K/uL (0-0.2); Basophils % (auto) 0.2 %; Eosinophils # (auto) 0.01 K/uL (0-0.5); Eosinophils % (auto) 0.1 %; Hematocrit (blood only) 24.2 % (37-47); Hemoglobin 7.9 g/dL (12.0-16.0); Immature Granulocytes # (auto) 0.06 K/uL (0.00-0.02); Immature Granulocytes % (auto) 0.6 %; Lymphocytes # (auto) 0.25 K/uL (1.2-3.4); Lymphocytes % (auto) 2.4 %; Mean Corpuscular Hemoglobin 27.7 pg (25-34); Mean Corpuscular Volume 84.9 fL (80-100); Mean Platelet Volume 8.9 fL (7.4-10.4); Monocytes # (auto) 0.36 K/uL (0.11-0.59); Monocytes % (auto) 3.5 %; Neutrophils # (auto) 9.67 K/uL (1.4-6.5); Neutrophils % (auto) 93.2 %; Platelet Count 285 K/uL (130-400); RDW Coefficient of Variation 13.6 % (11.5-14.5); RDW Standard Deviation 42.2 fL (36.4-46.3); Red Blood Count 2.85 M/uL (4.2-5.4); White Blood Count 10.37 K/uL (4.8-10.8)
[2020-08-27 20:41] LABS: Mean Corpuscular Hgb Conc 32.6 g/dL (32-36)
[2020-08-27 20:56] LABS: RBC Morphology Unremarkable
[2020-08-27 20:57] LABS: BUN Creatinine Ratio 21.2 (10-20); Calcium 8.1 mg/dl (8.5-10.1); Creatinine Clr Calc Pharmacy 48.9 ml/min; Est GFR (African American) 59.2; Est GFR (Non-African American) 51.1; Potassium 3.2 mmol/L (3.5-5.1)
[2020-08-27 21:04] LABS: Troponin I 7.99 ng/ml (0-0.045)
[2020-08-27] MEDS: GABAPENTIN 100 MG CAP PO SCH (21:30)
[2020-08-27] MEDS ORDERED: SODIUM CHLORIDE 0.9% 1000ML 1,000 ML IV ONE (21:39)
[2020-08-28] MEDS: ACETAMINOPHEN 500 MG TAB PO PRN ×2 (01:01→08:11)
[2020-08-28] MEDS: hydrOXYzine HCl 10 MG TAB PO PRN (01:55)
[2020-08-28] MEDS ORDERED: LORazepam 0.5 MG/1 ML VIAL IV STA (02:11)
[2020-08-28] MEDS ORDERED: LORazepam 2 MG/4 ML VIAL ONE ×2 (02:11→14:23)
[2020-08-28] MEDS: PIPERACILLIN/TAZOBACTAM 3.375 GM in DEXTROSE 5% 100 ML IV SCH (02:36)
[2020-08-28] MEDS: NSS + 20MEQ KCL 20 MEQ/1,000 ML BAG IV SCH (06:16)
[2020-08-28] MEDS ORDERED: SODIUM CHLORIDE 0.9% 1000ML 500 ML IV ONE (07:29)
[2020-08-28] MEDS ORDERED: SODIUM CHLORIDE 0.9% 250 ML IV PRN ×2 (07:30→07:48)
--- NOTE | 2020-08-28 07:39 | XRay Report ---
XR chest 1V portable CLINICAL HISTORY: Shortness of breath COMPARISON STUDY: 08/26/2020 FINDINGS: The cardiac and mediastinal contours remain stable. There is a small right pleural effusion . There is diffuse interstitial thickening. The findings are consistent with pulmonary edema versus a bilateral interstitial infectious/inflammatory process.[ IMPRESSION: Diffuse bilateral interstitial opacities, pulmonary edema versus a bilateral interstitial infectious/inflammatory process. Small right pleural effusion. Clinical and radiographic follow-up r ecommended. ACT 112: Negative or not required by law. Electronically signed by: Dat Ornelas M.D. 08/28/2020 7:38 AM
[2020-08-28 07:48] LABS: Basophils # (auto) 0.01 K/uL (0-0.2); Basophils % (auto) 0.1 %; Eosinophils # (auto) 0.02 K/uL (0-0.5); Eosinophils % (auto) 0.2 %; Hematocrit (blood only) 26.1 % (37-47); Hemoglobin 8.5 g/dL (12.0-16.0); Immature Granulocytes # (auto) 0.11 K/uL (0.00-0.02); Immature Granulocytes % (auto) 0.9 %; Lymphocytes # (auto) 0.33 K/uL (1.2-3.4); Lymphocytes % (auto) 2.7 %; Mean Corpuscular Hemoglobin 27.5 pg (25-34); Mean Corpuscular Hgb Conc 32.6 g/dL (32-36); Mean Corpuscular Volume 84.5 fL (80-100); Mean Platelet Volume 9.3 fL (7.4-10.4); Monocytes # (auto) 0.32 K/uL (0.11-0.59); Monocytes % (auto) 2.6 %; Neutrophils # (auto) 11.65 K/uL (1.4-6.5); Neutrophils % (auto) 93.5 %; Platelet Count 281 K/uL (130-400); RDW Coefficient of Variation 13.7 % (11.5-14.5); RDW Standard Deviation 42.1 fL (36.4-46.3); Red Blood Count 3.09 M/uL (4.2-5.4); White Blood Count 12.44 K/uL (4.8-10.8)
[2020-08-28] MEDS: HEPARIN SOD 5,000 UNIT/0.5 ML VIAL SQ SCH ×2 (08:14→21:59)
[2020-08-28] MEDS: VITAMIN B COMPLEX TAB PO SCH (08:14)
[2020-08-28] MEDS: DOCUSATE SODIUM/SENNA 50/8.6MG TAB PO SCH (08:14)
[2020-08-28] MEDS: FEXOFENADINE HCL 180 MG TAB PO SCH (08:15)
[2020-08-28] MEDS: MULTIVITAMIN TAB PO SCH (08:15)
[2020-08-28] MEDS: FERROUS SULFATE 325 MG TAB PO SCH (08:15)
[2020-08-28] MEDS: PANTOprazole 40 MG TAB PO SCH (08:15)
[2020-08-28] MEDS: POLYETHYLENE (MIRALAX) 17 GM PACK PO SCH (08:15)
[2020-08-28] MEDS: CHOLECALCIFEROL 1,000 UNITS 25 MCG TAB PO SCH (08:15)
[2020-08-28] MEDS: CALCIUM 600MG + VIT D 400 IU TAB PO SCH (08:15)
[2020-08-28] MEDS: DULoxetine HCL 60 MG CAP PO SCH (08:15)
[2020-08-28] MEDS: BACLOFEN 50 MCG/ML ITR SCH (08:16)
[2020-08-28 08:19] LABS: BUN Creatinine Ratio 26.4 (10-20); Creatinine Clr Calc Pharmacy 56.5 ml/min; Est GFR (African American) 69.3; Est GFR (Non-African American) 59.8; Magnesium 1.7 mg/dl (1.8-2.4); Potassium 3.3 mmol/L (3.5-5.1)
--- NOTE | 2020-08-28 08:21 | Hospitalist Progress Note ---
Date of Service August 28, 2020 Assessment & Plan (1) Septicemia: Ms. Henry is a 75yo female with a PMHx significant for follicular lymphoma, aortic stenosis, chronic back pain and post-laminectomy syndrome with placement of an intrathecal pump, anxiety, GERD, HLD, HTN, insomnia and depres jacy who presents with a persistent fever x2 weeks and intractable back pain after a fall at home 4 days ago. Has been treated for UTIs with 2 rounds of Macrobid in the last 2 weeks. Fever-resolved, growing gram-negative bacilli in blood cultures which is now persistent-most likely secondary to previous UTI With acute metabolic encephalopathy upon presentation which was improved now worsened with acute respiratory failure as below Back pain likely secondary to developing pyelonephritis-now improving CT abdomen/pelvis performed on the evening of admission shows no bowel obstruction or bowel wall thickening, nonspecific enteritis, some pathologic adenopathy improved from previous, emphysema, unchanged aneurysmal dilation of the ascending thoracic aorta 4.6 cm, status post cholecystectomy and with normal liver. She did also have prominence of the bilateral renal pelvis ease without abril hydronephrosis Urinalysis here with epithelial cells contaminating, 5-10 WBCs and 1+ leukocyte esterase, negative for bacteria, but also recently completed another course of Macrobid which could be making her have a false negative urinalysis A urine culture was not sent -CTA chest with no evidence of pneumonia (notes 4.5cm aortic aneurysm, 8mm nodule in CAREY, axillary lymphadenopathy) but does have cystic changes as per pulmonology -COVID NEGATIVE as of 08/08/2020-we will repeat again today -Temp of 38.2 on admission, WBC >11, 000 and was improved down to 8-now back up to 12; procalcitonin of 0.57 on admission which is now up to 7.67. LFTs mildly elevated today but no abdominal pain and no findings to explain this on CT from admission-likely secondary to sepsis versus medication side effect Echocardiogram without vegetation and with gram-negative bacilli most likely not endocarditis -Repeat blood cultures again growing gram-negative bacilli -Repeat blood cultures again -Discontinue Zosyn and switch to meropenem for broader coverage which would include Pseudomonas -With septic shock as below -Follow CBC, CMP in the morning (2) Septic shock: With hypotension with blood pressures in the 60s systolic overnight on 08/27-08/28 requiring multiple boluses of IV fluids PRBC transfusion was given for hemoglobin less than 10 in the setting of NSTEMI Blood pressures remained borderline low Transferred to ICU and now on Jovanni-Synephrine Appreciate social service assistant consultation Continue treat with antibiotics as below (3) Acute hypoxemic respiratory failure: Had been requiring oxygen and then acutely worsened with significant respiratory distress after volume resuscitation and PRBC transfusion on 09/01 profound hypotension Chest x-ray with worsening pulmonary edema Troponin trended downward to 4 and ECG without ischemic changes ABG 7.3 on BiPAP 45% FiO2 Placed on BiPAP, given IV Lasix TRALI labs sent by social service assistant May need intubated Transfer to ICU Follow chest x-ray (4) Acute encephalopathy: Acute metabolic encephalopathy as above, secondary to septic shock, respiratory failure (5) Elevated troponin: Type II NE due to demand ischemia -Trops elevated to 0.643 on admission and has now trended up to 7 and back down to 4 today With moderate aortic stenosis -EKG with noted sinus tach, absence of chest pain at all Appreciate cardiology consultation-discussed with cardiology-most likely myocardial demand ischemia Echocardiogram here without wall motion abnormalities and with preserved EF, mod erate aortic stenosis Repeat ECG today with improvement in previous changes in anterior leads Now with significant sinus tachycardia and hypotension from septic shock Follow troponin Transfuse 1 unit PRBCs to keep hemoglobin closer to 10 (6) Fever: Secondary to septicemia as above Tylenol as needed (7) Presence of intrathecal pump: Seen by pain management here, she will have a delay in the replacement of the battery of her intrathecal pump until 2 weeks after finished with antibiotics for septicemia Has hydromorphone, bupivacaine, and baclofen in her pump (8) Persistent insomnia: Continue home meds (9) Hypokalemia: Improved but persists -Continue to hold home HCTZ -replete with potassium Follow BMP and magnesium in the morning (10) Constipation: Ordered MiraLAX and senna/docusate She did have a bowel movement on the morning of 08/27 and again when I saw her in the afternoon of 08/28 (11) Peripheral edema: Secondary to lymphedema most likely Doppler of lower extremities on admission was negative for DVT (12) Gastroesophageal reflux disease: -continue PPI (13) Depression: Continue home meds (14) Chronic pain syndrome: Intractable Back Pain/Lumbar post Laminectomy Syndrome -Pt with intrathecal pump dispensing hydromorphone, bupivacaine, baclofen. Due for replacement on 09/03/2020. -received morphine and Dilaudid in the ED -Dilaudid 0.5mg q2h PRN ordered for pain but pain management recommends against this-we will discontinue -continue home cymbalta 120mg daily, gabapentin 100mg qhs Holding home nabumetone 750mg BID Appreciate pain management consultation -PT/OT pending -given fall at home (pt lives alone), consult to CM placed for discharge planning (15) Hyperlipidemia: On Krill oil at home-holding while inpatient (16) Hypertension: -hypotensive as above -Continue to hold home HCTZ (17) Follicular lymphoma: -due for port placement after intrathecal pump replaced which will now be delayed due to septicemia -will start chemotherapy once port placed Consult her quality assurance practice manager/oncologist (18) Aortic stenosis: Moderate as noted on echocardiogram Avoid extremes of volume and hypotension (19) Anxiety disorder, unspecified: Insomnia/Depression/Anxiety -continue home melatonin, trazodone qhs -continue home cymbalta 120mg daily, gabapentin 100mg qhs Ativan given as needed (20) DVT prophylaxis: Heparin SQ Disposition-transfer to ICU Admission and Anticipated Discharge Date Admission Date: August 26, 2020 Subjective I saw the patient early in the morning around 7:30 AM after she had hypotension overnight and was bolused with IV fluids. Her hemoglobin had dropped. She denied any chest pain reported she was feeling a little bit better but was still lethargic and drowsy. She also received Ativan overnight for significant anxiety. She denied shortness of breath but remained on oxygen. She reported that currently her back pain in the low back was not hurting as much but she had not been moving. We discussed the need for PRBC transfusion given that she was having an NSTEMI and her hemoglobin was low. I also discussed her case with the community pharmacist and her oncologist, Dr. Verde. Later in the afternoon, she had severe acute respiratory distress and was tripoding when I saw her and using accessory muscles to breathe. An ABG was ordered, chest x- ray was ordered, she was placed on BiPAP, Dr. Connor of cardiology was at the bedside with me and ordered IV Lasix as well as additional IV Ativan. She continued to be in severe distress and began acting very confused and grabbing at things, trying to climb out of bed. Her blood pressure at one point went back down to 80 systolic but then was back up to the 120 systolic on recheck prior to transfer to the ICU. The social service assistant was consulted and came to the bedside who recommended transfer to the ICU. Review of Systems Review of Systems: All systems reviewed & are unremarkable except as noted in HPI & below Physical Exam Constitutional: WD/WN, vitals as above + acute distress and + ill appearing Eyes: + anicteric sclerae Neck: trachea midline, no thyromegaly Respiratory: + respiratory distress, + labored breathing, + uses accessory muscles, + tachypneic and + tripod positioning Auscultation: + crackles (In the lower and middle lung newman bilaterally) and + wheezes (Diffusely) Cardiovascular: Rate/Rhythm: regular rhythm and + tachycardic Heart Sounds: + murmur (2/6 KENDRA at RUSB) Extremities: no edema Chest (Breasts): Chest: normal inspection of chest Gastrointestinal (Abdomen): normal bowel sounds, soft, nontender, no hepatosplenomegaly Musculoskeletal: Extremities: extremities normal to inspection; no cyanosis and no clubbing Skin: no rashes, warm and dry Neurologic: moves all extremities and awake; no focal motor deficits Psychiatric: A+Ox3, euthymic affect (In the morning, but then in the afternoon, was alert but confused, very anxious) Affect: + anxious affect Lymphatic: no lymphedema Results & Data Results & Data ([facility]) Vital Signs (Past 12 Hours) Vital Signs Temp Pulse Pulse Pulse Resp BP BP 08/28/20 07:20 36.7 C 100 H 18 87/59 L 08/28/20 02:00 37.5 C 128 H 22 92/56 L 08/27/20 23:59 93 H 08/27/20 23:37 36.6 C 90 17 89/52 L 08/27/20 23:15 91 H 90/52 L 08/27/20 22:04 100 H 88/42 L 08/27/20 21:25 36.7 C 85 18 78/42 L 08/27/20 20:24 100 H Pulse Ox 08/28/20 07:20 94 08/28/20 02:00 96 08/27/20 23:59 08/27/20 23:37 97 08/27/20 23:15 08/27/20 22:04 08/27/20 21:25 100 08/27/20 20:24 Laboratory Results Laboratory values reviewed Hemoglobin 7.9-8.5 WBC count up to 12.4 Magnesium 1.7 Sodium 137, potassium 3.3, creatinine 0.9 Total bilirubin down to 0.7, AST down to 66, troponin down to 4.67 Blood cultures repeat set again with gram-negative bacilli Chest x-ray personally reviewed by me and agree with the following report: XR chest 1V portable CLINICAL HISTORY: Shortness of breath COMPARISON STUDY: 08/26/2020 FINDINGS: The cardiac and mediastinal contours remain stable. There is a small right pleural effusion. There is diffuse interstitial thickening. The findings are consistent with pulmonary edema versus a bilateral interstitial infectious/inflammatory process.[ IMPRESSION: Diffuse bilateral interstitial opacities, pulmonary edema versus a bilateral interstitial infectious/inflammatory process. Small right pleural effusion. Clinical and radiographic follow-up recommended. ECG Additional Comments: ECG on 08/28 at 0855 with normal sinus rhythm, rate 96, ST newly depressed in anterior leads PG Care Time/CCT Total # of Minutes Spent Total Time Spent with Patient: Total time spent is greater than 50% in coordination of care (as documented) at patient's floor/unit and/or counseling patient: Coding Level of Care Code 64929 Subseq Hosp Care Lvl 3 Diagnoses Septicemia A41.9 Septic shock A41.9; R65.21 Acute hypoxemic respiratory failure J96.01 Acute encephalopathy G93.40 Elevated troponin R77.8 Fever R50.9 Presence of intrathecal pump Z96.89 Persistent insomnia G47.00 Hypokalemia E87.6 Constipation K59.00 Peripheral edema R60.9 Gastroesophageal reflux disease K21.9 Depression F32.9 Chronic pain syndrome G89.4 Hyperlipidemia E78.5 Hyperlipidemia type: unspecified Hypertension I10 Hypertension type: essential hypertension 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 Follicular lymphoma type: unspecified follicular type Lymphoma site: unspecified region Aortic stenosis I35.0 Anxiety disorder, unspecified F41.1 Anxiety disorder type: generalized anxiety disorder DVT prophylaxis Z29.9 (1) Anxiety disorder, unspecified Anxiety disorder type: generalized anxiety disorder Qualified Code(s): F41.1 - Generalized anxiety disorder (2) Hyperlipidemia Hyperlipidemia type: unspecified Qualified Code(s): E78.5 - Hyperlipidemia, unspecified (3) Follicular lymphoma Follicular lymphoma type: unspecified follicular type Lymphoma site: unspecified region Qualified Code(s): C82.90 - Follicular lymphoma, unspecified, unspecified site (4) Hypertension Hypertension type: essential hypertension Qualified Code(s): I10 - Essential (primary) hypertension
[2020-08-28 08:27] LABS: Albumin Globulin Ratio 0.5 (0.9-2); Bilirubin,Total 0.7 mg/dl (0.2-1); Globulin 3.8 gm/dl (2.5-4.0); Total Protein 5.8 gm/dl (6.4-8.2); Troponin I 4.67 ng/ml (0-0.045)
[2020-08-28] MEDS ORDERED: MAGNESIUM SULFATE / D5W 1 GM/100 ML BAG IV ONE (09:15)
[2020-08-28] MEDS ORDERED: POTASSIUM CHLORIDE 20 MEQ TABCR PO ONE (09:15)
--- NOTE | 2020-08-28 09:41 | Electrocardiogram Report ---
Test Reason : Blood Pressure : / mmHG Vent. Rate : 096 BPM Atrial Rate : 096 BPM P-R Int : 146 ms QRS Dur : 094 ms QT Int : 376 ms P-R-T Axes : 048 029 090 degrees QTc Int : 475 ms Normal sinus rhythm Normal ECG When compared with ECG of 27-AUG-2020 12:27, ST no longer depressed in Anterior leads Confirmed by Marshal Connor ([id number]) on 08/28/2020 9:40:47 AM Referred By: REFERRED SELF Confirmed By:Marshal Connor
[2020-08-28] MEDS ORDERED: ERTAPENEM SODIUM 1,000 MG in SODIUM CHLORIDE 0.9% 50 ML IV SCH (10:00)
[2020-08-28] MEDS ORDERED: LORazepam 0.5 MG TAB PO PRN (13:46)
[2020-08-28] MEDS ORDERED: FUROSEMIDE 10 MG/ML 10 ML VIAL IV ONE (14:04)
[2020-08-28] MEDS ORDERED: FUROSEMIDE 60 MG in SYRINGE 0 ML IV ONE (14:30)
[2020-08-28] MEDS ORDERED: ALBUT/IPRATROP 3MG/0.5MG NEB 3 ML VIAL NEB STA (14:31)
[2020-08-28] MEDS ORDERED: ALBUT/IPRATROP 3MG/0.5MG NEB 3 ML VIAL ONE (14:31)
[2020-08-28] MEDS ORDERED: MEROPENEM CONSULT ACITVE PRN (14:54)
[2020-08-28] MEDS ORDERED: STAT IV Infusion **Titration per Protocol STA ×2 (15:10→17:40)
[2020-08-28] MEDS ORDERED: LORazepam 0.25 MG/0.5 ML VIAL IV STA (15:40)
[2020-08-28] MEDS: DEXMEDETOMIDINE HCL 200 MCG in SODIUM CHLORIDE 0.9% 48 ML IV SCH ×2 (15:42→19:33)
--- NOTE | 2020-08-28 15:42 | Cardiology Progress Note ---
Date of Service August 28, 2020 Assessment & Plan (1) Pulmonary edema: (2) Acute hypoxemic respiratory failure: (3) Moderate aortic stenosis: (4) Moderate mitral regurgitation: (5) Gram-negative bacteremia: (6) Elevated troponin: Patient with acute respiratory decompensation which is most likely due to her underlying valvular disease (moderate AR/MR), with likely underlying pulmonary disease (emphysema suggested on CT, wheezing on exam), resulting in an inability to respond to the vigorous IV fluid resuscitation administered to manage her hypotension overnight. Current management includes BiPAP, diuresis, beta agonist nebulizers, and anxiolytics. Her fairly acute decompensation certainly warrants ICU level monitoring and intervention. Doubt any major ischemic component to her current symptoms given the lack of chest pain during her episode of distress and her completely unremarkable ECG earlier today. No evidence of rhythm problem, her sinus tachycardia was gradual in onset and is likely a physiologic response to her respiratory difficulties. Etiology of her gram-negative bacteremia is uncertain, if she does not fact have E. coli it is most likely urosepsis (despite the negative urine culture, since she apparently had received antibiotics), as E. coli endocarditis is exceedingly rare. We will continue to follow along. Admission and Anticipated Discharge Date Admission Date: August 26, 2020 Subjective Significant hypotension overnight requiring vigorous IV fluids and packed red blood cell transfusion. When seen this morning, she had no specific complaints and her blood pressure was improving. I saw her again at 2 PM, her status had changed dramatically with significant anxiety, dyspnea, and markedly increased respiratory effort. Review of her monitor showed that she first demonstrated mildly increased heart rate half hour earlier with progressively increasing tachycardia since that time. Chest x-ray exam suggested pulmonary edema, she was given furosemide 60 mg IV, lorazepam IV, nebulizer treatment, Noble placement, and put on BiPAP, then transferred to the ICU. She did not actually have any chest pain at the time of her respiratory distress. Her rhythm was sinus tachycardia of gradual onset. Physical Exam Physical Exam: Elderly white female who appeared anxious and demonstrated labored respirations. T-max 100.9 (improving). Hypotensive overnight, but hypertensive during her episode of respiratory distress. Tachycardic to 130 bpm. Respirations labored, tachypneic. Skin: No stigmata of SBE or generalized lesions. HEENT: Unremarkable. Neck: Jugular venous pulse difficult to evaluate, wide respiratory variation. Bilateral transmitted murmur to carotids. Lungs: Diffuse crackles and wheezing with accessory muscle use. Some intercostal retraction, no abdominal paradox. Cardiac: Regular/tachycardic rhythm with 3/6 crescendo decrescendo systolic ejection murmur right upper sternal border rating to the carotids, 3/6 apical holosystolic murmur radiating to the axilla. No diastolic murmur. Aortic closure sound markedly diminished (not audible with tachycardia). Abdomen: Nondistended. Extremities: No edema, pulses intact. Neurologic: Very anxious affect, grossly nonfocal. Results & Data ([facility]) Laboratory Results Labs from this morning showed a potassium of 3.3, BUN 25, creatinine 0.94. Troponin peaked at 7.9 before dropping to 4.6 this morning. Multiple blood culture showed gram-negative bacilli, discussion with microbiology suggest there is a "90% chance this is E. coli". Diagnostic Findings Chest x-ray this morning showed some interstitial, chest x-ray this afternoon showed progressive bilateral pulmonary opacities. ECG today showed sinus rhythm at 96 bpm and was unremarkable, compared with yesterday the ST was no longer depressed in the anterior leads. PG Care Time/CCT Total # of Minutes Spent Total Time Spent with Patient: Total time spent is greater than 50% in coordination of care (as documented) at patient's floor/unit and/or counseling patient: Coding Level of Care Code 75589 Subseq Hosp Care Lvl 3 Diagnoses Pulmonary edema J81.1 Acute hypoxemic respiratory failure J96.01 Moderate aortic stenosis I35.0 Moderate mitral regurgitation I34.0 Gram-negative bacteremia R78.81 Elevated troponin R77.8
--- NOTE | 2020-08-28 15:52 | XRay Report ---
XR chest 1V portable CLINICAL HISTORY: respiratory distress COMPARISON STUDY: 08/28/2020 FINDINGS: The cardiac and mediastinal contours remain stable. There are progressive bilateral pulmona ry opacities. There is a suspected trace right pleural effusion. Diagnostic considerations remain pul monary edema versus a bilateral interstitial infectious/inflammatory process.[ IMPRESSION: 1. Progressive bilateral pulmonary opacities. Diagnostic considerations include progressive pulmonary edema versus a bilateral interstitial infectious/inflammatory process. ACT 112: Negative or not required by law. Electronically signed by: Dat Ornelas M.D. 08/28/2020 3:51 PM
[2020-08-28] MEDS ORDERED: ALBUT/IPRATROP 3MG/0.5MG NEB 3 ML VIAL NEB PRN (16:06)
--- NOTE | 2020-08-28 16:07 | Critical Care Consultation ---
Date of Consultation August 28, 2020 Assessment & Plan (1) Acute encephalopathy: We have started the patient on Precedex given her agitation. She is currently on BiPAP requiring high FiO2. Continue antibiotics. I will switch her to meropenem. Repeat blood culture. Lactate pending. CBC and CMP is pending. Electrolytes are being replaced by the hospitalist earlier today. She was given 60 mg of IV Lasix with 200 mL output. She did get a blood transfusion earlier during the day and this may be related to transfusion which associated circulatory overload versus transfusion related acute lung injury. I have alerted the blood bank and we are going to send the relevant labs. We are going to start her on azithromycin as well for atypical pneumonia. She may need to be intubated if there is no significant improvement in oxygenation and altered mental status. We are checking for COVID-19 PCR. I am starting her on 40 mg IV Solu-Medrol twice daily for possibility of COPD exacerbation. She does have evidence of potential emphysema on her CT chest. 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 Interestingly, she does have follicular lymphoma with evidence of potential cystic lung disease which would make one think possible underlying Sjogren's/lymphocytic interstitial pneumonitis. This can be worked up as an outpatient. She had an elevated troponin. Cardiology is following the patient. We will repeat a troponin today. EKG demonstrates sinus tachycardia. I did perform bedside echo which demonstrated preserved EF with dilated RV. IVC also appeared dilated. She had diffuse B-lines noted on ultrasound of her chest. We may need to perform a lumbar puncture given her intrathecal pain pump and persistent bacteremia. She also may need an MRI of her spine. Check MRSA screen. We will have a low threshold for intubation. If intubated, we may need to proceed with bronchoscopy if COVID-19 testing is negative. I did update his daughter at bedside. She indicated the patient would want to be a full code. The patient is functional at home and able to drive. She does move around very slowly secondary to her back pain. I have personally spent 62 minutes of critical care time in the direct management of this patient. This is a life/limb threatening event. This includes time spent evaluating patient, direct bedside care, chart review, placing orders, interpretation of diagnostic studies, discussion with consultants, patient, and family members, as well as other required patient management activities. This time is exclusive of all separately billable procedures, and teaching time and separate from and in addition to any other critical care service time. Thank you for allowing us to participate in the care of this patient. (2) Gram-negative bacteremia: (3) Moderate aortic stenosis: (4) Mild aortic regurgitation: (5) Moderate mitral regurgitation: (6) Acute hypoxemic respiratory failure: (7) Pulmonary edema: History of Present Illness Reason for Consultation: Altered mental status with acute hypoxemic respiratory failure Requesting Physician: Dr. Gloria Parson Attending Physician: Gloria Parson MD History of Present Illness 75-year-old female with a past medical history of chronic pain secondary to lumbar postlaminectomy syndrome, follicular lymphoma, aortic stenosis, moderate mitral valve regurgitation, placement of intrathecal pump, anxiety, GERD, hyperlipidemia, hypertension and insomnia who is presenting to the hospital with intractable pain in her back since 08/26/2020. ICU was called due to altered mental status and worsening hypoxemic respiratory failure requiring BiPAP initiation. While on the floor, the patient was acutely encephalopathic and unable to give any history. The patient's daughter was at bedside and was visibly distraught. She indicated that the patient has been suffering from illness for the last 3 weeks with fluctuating fevers and severe back pain. She has been on several doses of antibiotics as an outpatient for UTI. She was found to be persistently bacteremic with gram-negative francisco javier bacteria in her blood during this hospitalization. She has been on Zosyn and ertapenem. Hospitalist placed an order for meropenem after discussion with me. She is requiring 100% FiO2 on BiPAP with settings of 12/8. We brought her down to the ICU and started her on a Precedex drip. Agitation improved mildly with a Precedex drip. Notably, she did receive 1 unit of blood on the floor today due to anemia. She had an elevated troponin yesterday. Cardiology is following the patient. She had a CTA of her chest on 08/26/2020 with persistent dilation of the ascending thoracic aorta. No evidence of pulmonary embolism. Pulmonary presume was seen. Elevated right hemidiaphragm. Persistent prominent axillary supraclavicular lymph nodes were noted. Chest x-ray completed at 4 PM demonstrates progressive bilateral pulmonary opacities. She received 60 mg of IV Lasix and had approximately 200 mL of urine output. Allergies Allergy/AdvReac Type Severity Reaction Status Date / Time latex Allergy Mild contact Verified 08/26/20 22:05 dermatitis Sulfa (Sulfonamide Allergy Mild RASH Verified 08/26/20 22:05 Antibiotics) nickel Allergy Unknown contact Verified 08/26/20 22:05 dermatitis Home Medications Home Medications Medication Instructions Recorded Confirmed Type acetaminophen 500 mg tablet 1,000 mg PO Q6H PRN tab 07/27/18 08/26/20 History aspirin 81 mg tablet,delayed 81 mg PO HS 07/27/18 08/26/20 History release cholecalciferol (vitamin D3) 50 2,000 units PO QAM 07/27/18 08/26/20 History mcg (2,000 unit) capsule fexofenadine 180 mg tablet 180 mg PO QAM 07/27/18 08/26/20 History nicotine (polacrilex) 2 mg gum 2 mg BUCCAL Q2H 07/27/18 08/26/20 History vitamin B complex 1 tab PO QAM 07/27/18 08/26/20 History krill oil 500 mg capsule 500 mg PO QAM cap 06/29/19 08/26/20 History fluticasone propionate 50 2 sprays INTNAS DAILY PRN #47.4 gm 07/25/19 08/26/20 Rx mcg/actuation nasal spray,suspension ferrous sulfate 325 mg (65 mg 325 mg PO QAM 07/11/20 08/26/20 History iron) tablet melatonin 5 mg capsule 5 mg PO HS PRN cap 07/11/20 08/26/20 History calcium carbonate-vitamin D3 1 tab PO QAM 08/21/20 08/26/20 History [Calcium + D] duloxetine [Cymbalta] 120 mg PO QAM 08/21/20 08/26/20 History gabapentin [Neurontin] 100 mg PO HS 08/21/20 08/26/20 History hydrochlorothiazide 25 mg PO QAM 08/21/20 08/26/20 History lansoprazole [Prevacid] 30 mg PO QAM 08/21/20 08/26/20 History multivitamin 2 tab PO QAM 08/21/20 08/26/20 History nabumetone [Relafen] 750 mg PO BID 08/21/20 08/26/20 History trazodone 25 - 50 mg PO HS PRN 08/21/20 08/26/20 History baclofen 50 mcg/mL intrathecal 50 mcg INTRATHECAL DAILY 08/22/20 08/26/20 History solution morphine IR soln 1 applic IMPLANT UD 08/22/20 08/26/20 History Patient History Medical History Anemia Anxiety Aortic stenosis MODERATE, EDWARD 1.1CM ON 03/20/20 ECHO. Atherosclerosis of aorta Chronic pain syndrome Degenerative disc disease Depression DVT (deep venous thrombosis) possibly, treated inpatient directly following knee replacement. no problems since. Emphysema of lung Noted on chest CTs but not reported by patient. Follicular lymphoma currently monitoring and treating with Dr Moseley (oncology). To have port placed for chemo by Dr Chow 09/17/20 Gastroesophageal reflux disease Hyperlipidemia Hypertension Lumbar canal stenosis Myofascial pain Osteoarthritis Peripheral edema Currently, L >R, 2/2 lymphoma. Wearing compression socks. Persistent insomnia Piriformis syndrome Post laminectomy syndrome Presence of intrathecal pump Urinary tract infection currently finishing abx (08/21/20). not recurrent infections typically Surgical History H/O cataract removal with insertion of prosthetic lens bilateral History of cholecystectomy 1978 History of colonoscopy History of knee replacement procedure of right knee 2002 History of laminectomy lumbar ~2013 Previous back surgery 2006,2007,2013 S/P hip replacement bilateral 2015, 2016 Status post laminectomy with spinal fusion lumbar, 2007 & 2008 Family History Father Abdominal aneurysm Colorectal cancer Grandmother (Paternal) Cancer Other No family history of adverse response to anesthesia Denies family history of Ovarian cancer Prostate cancer Myocardial infarction Breast cancer Social History Smoking Status: Unknown if ever smoked Second Hand Exposure: No; Hx Substance Use: No Preferred Language: Icelandic Communication Ability: Effective Visual Impairment: Limited Hearing Ability: Normal Language Path Required: No Beliefs That Will Affect Care: None marital status: / Current Living Situation: Alone current occupational status: retired Feels Safe at Home: Yes Childhood Exposure to Second-Hand Smoke: Yes caffeine: Yes Dental Care, Regularly: No Physical Activity Frequency: Does not Exercise Seatbelt Use: always Sunscreen Use: Yes Assistive Devices: Glasses, Oxygen - Continuous and Walker Review of Systems Review of Systems: Unobtainable due to reduced consciousness Physical Exam Constitutional: + acute distress and + diaphoretic Eyes: PERRL, conjunctivae normal, anicteric sclerae ENMT: external ear and nose normal, oropharynx normal Neck: normal visual inspection Respiratory: + retractions, + uses accessory muscles and + audible wheezes Cardiovascular: Rate/Rhythm: + tachycardic Heart Sounds: normal S1, normal S2 and + murmur Gastrointestinal (Abdomen): normal bowel sounds, soft, nontender, no hepatosplenomegaly Musculoskeletal: no cyanosis or clubbing, extremities motor strength 5/5 Skin: no rashes, warm and dry Neurologic: PERRL, EOMI, accommodation nl, no face palsy, no dysarthria Psychiatric: A+Ox3, euthymic affect Results & Data Results & Data ([facility]) Vital Signs (Past 12 Hours) Vital Signs Temp Pulse Pulse Resp BP BP Pulse Ox 08/28/20 15:24 147 H 30 H 08/28/20 14:43 20 08/28/20 14:40 24 08/28/20 13:47 98.2 F 128 H 24 92 08/28/20 11:51 97.7 F 90 18 100/66 93 08/28/20 10:52 97.5 F L 91 H 18 91/61 L 93 08/28/20 09:52 97.9 F 92 H 18 85/55 L 94 08/28/20 09:22 97.7 F 96 H 18 93/59 L 94 08/28/20 09:07 97.9 F 93 H 16 87/57 L 94 08/28/20 08:51 98.1 F 97 H 18 97/64 L 92 08/28/20 08:20 103 H 16 88/58 L 92 08/28/20 08:00 103 H 08/28/20 07:20 98.1 F 100 H 18 87/59 L 94 I reviewed vital signs, labs and imaging Coding Level of Care Code Critical Care 1st 30-74 mins Diagnoses Acute encephalopathy G93.40 Gram-negative bacteremia R78.81 Moderate aortic stenosis I35.0 Mild aortic regurgitation I35.1 Moderate mitral regurgitation I34.0 Acute hypoxemic respiratory failure J96.01 Pulmonary edema J81.1 Time Spent (min) 62
[2020-08-28 16:53] LABS: Basophils # (auto) 0.01 K/uL (0-0.2); Basophils % (auto) 0.1 %; Hematocrit (blood only) 33.9 % (37-47); Hemoglobin 10.9 g/dL (12.0-16.0); Immature Granulocytes # (auto) 0.25 K/uL (0.00-0.02); Immature Granulocytes % (auto) 1.8 %; Lymphocytes # (auto) 0.14 K/uL (1.2-3.4); Mean Corpuscular Hemoglobin 27.5 pg (25-34); Mean Corpuscular Hgb Conc 32.2 g/dL (32-36); Mean Corpuscular Volume 85.6 fL (80-100); Monocytes # (auto) 0.26 K/uL (0.11-0.59); Monocytes % (auto) 1.9 %; Neutrophils # (auto) 12.88 K/uL (1.4-6.5); Neutrophils % (auto) 95.2 %; Nucleated RBC # (auto) 0.03 K/uL (0-0); Nucleated RBC % (auto) 0.2 %; Platelet Count 376 K/uL (130-400); RDW Coefficient of Variation 13.7 % (11.5-14.5); RDW Standard Deviation 43.4 fL (36.4-46.3); Red Blood Count 3.96 M/uL (4.2-5.4); White Blood Count 13.54 K/uL (4.8-10.8)
[2020-08-28] MEDS: methylPREDNISolone 40 MG in SYRINGE 0 ML IV SCH (17:12)
[2020-08-28] MEDS: MEROPENEM 500 MG in SYRINGE 0 ML IV SCH ×2 (17:12→22:00)
[2020-08-28] MEDS: AZITHROMYCIN 500 MG in DEXTROSE 5% 250 ML IV SCH (17:12)
[2020-08-28 17:14] LABS: Albumin Level 2.3 gm/dl (3.4-5.0); BUN Creatinine Ratio 21.1 (10-20); Calcium 9.2 mg/dl (8.5-10.1); Creatinine Clr Calc Pharmacy 41.2 ml/min; Est GFR (African American) 47.2; Est GFR (Non-African American) 40.8; Potassium 3.7 mmol/L (3.5-5.1)
[2020-08-28 17:30] LABS: Albumin Globulin Ratio 0.5 (0.9-2); Bilirubin,Total 1.4 mg/dl (0.2-1); Globulin 4.4 gm/dl (2.5-4.0); Thyroid Stimulating Hormone 3.9 uIu/ml (0.300-4.500); Total Protein 6.7 gm/dl (6.4-8.2); Troponin I 5.15 ng/ml (0-0.045)
[2020-08-28] MEDS: ALBUT/IPRATROP 3MG/0.5MG NEB 3 ML VIAL NEB PRN ×2 (17:56→19:15)
[2020-08-28 18:03] LABS: iSTAT Allen Test Pass; iSTAT Art Bld Gas pCO2 Correct 33 mmHg (35-46); iSTAT Art Bld Gas pH Corrected 7.385 (7.35-7.45); iSTAT Arterial Blood Gas HCO3 20 meg/L (19-24); iSTAT Arterial Blood Gas pCO2 33 mmHg (35-46); iSTAT Arterial Blood Gas pH 7.38 (7.35-7.45); iSTAT Arterial Blood Gas pO2 61 mmHg (80-95); iSTAT Arterial Blood Gas pO2 C 60; iSTAT Carbon Dioxide 21 mmol/L (24-31); iSTAT FiO2 45 %; iSTAT Hematocrit 29 % (37-47); iSTAT Hemoglobin 9.9 g/dl (12.0-16.0); iSTAT Potassium 3.7 mmol/L (3.3-5.0); iSTAT Site R Radial; iSTAT Sodium 137 mmol/L (135-144)
[2020-08-28 18:10] LABS: Adenovirus PCR Not Detected (NotDetected); Bordetella parapertussis PCR Not Detected (NotDetected); Bordetella pertussis PCR Not Detected (NotDetected); Chlamydia pneumoniae PCR Not Detected (NotDetected); Coronavirus 229E PCR Not Detected (NotDetected); Coronavirus CoV-2 (COVID19)PCR Not Detected (NotDetected); Coronavirus HKU1 PCR Not Detected (NotDetected); Coronavirus NL63 PCR Not Detected (NotDetected); Coronavirus OC43PCR Not Detected (NotDetected); Human Metapneumovirus PCR Not Detected (NotDetected); Influenza A PCR Not Detected (NotDetected); Influenza B PCR Not Detected (NotDetected); Mycoplasma pneumoniae PCR Not Detected (NotDetected); Parainfluenza Virus 1 PCR Not Detected (NotDetected); Parainfluenza Virus 2 PCR Not Detected (NotDetected); Parainfluenza Virus 3 PCR Not Detected (NotDetected); Parainfluenza Virus 4 PCR Not Detected (NotDetected); Respiratory Syncytial VirusPCR Not Detected (NotDetected); Rhinovirus/Enterovirus PCR Not Detected (NotDetected)
[2020-08-28] MEDS: PHENYLEPHRINE HCL 20 MG in DEXTROSE 5% 500 ML IV SCH (18:19)
[2020-08-28 22:23] LABS: Blood Urine 3+ (Negative)
[2020-08-28] MEDS ORDERED: FUROSEMIDE 40 MG in SYRINGE 0 ML IV ONE (22:30)
[2020-08-29] MEDS: PHENYLEPHRINE HCL 20 MG in DEXTROSE 5% 500 ML IV SCH ×2 (00:02→05:04)
[2020-08-29] MEDS: DEXMEDETOMIDINE HCL 200 MCG in SODIUM CHLORIDE 0.9% 48 ML IV SCH ×2 (01:23→07:07)
[2020-08-29] MEDS: MEROPENEM 500 MG in SYRINGE 0 ML IV SCH (05:04)
[2020-08-29] MEDS: methylPREDNISolone 40 MG in SYRINGE 0 ML IV SCH (05:04)
[2020-08-29 05:54] LABS: iSTAT Allen Test Pass; iSTAT Arterial Blood Gas HCO3 22 meg/L (19-24); iSTAT Arterial Blood Gas pCO2 36 mmHg (35-46); iSTAT Arterial Blood Gas pH 7.41 (7.35-7.45); iSTAT Arterial Blood Gas pO2 90 mmHg (80-95); iSTAT Carbon Dioxide 23 mmol/L (24-31); iSTAT FiO2 30 %; iSTAT Site L Radial
[2020-08-29 06:17] LABS: Hematocrit (blood only) 30.4 % (37-47); Hemoglobin 10.2 g/dL (12.0-16.0); Immature Granulocytes # (auto) 0.05 K/uL (0.00-0.02); Immature Granulocytes % (auto) 0.4 %; Lymphocytes # (auto) 0.46 K/uL (1.2-3.4); Lymphocytes % (auto) 3.4 %; Mean Corpuscular Hgb Conc 33.6 g/dL (32-36); Mean Corpuscular Volume 83.5 fL (80-100); Mean Platelet Volume 10.5 fL (7.4-10.4); Monocytes % (auto) 3.7 %; Neutrophils # (auto) 12.45 K/uL (1.4-6.5); Neutrophils % (auto) 92.5 %; Nucleated RBC # (auto) 0.02 K/uL (0-0); Nucleated RBC % (auto) 0.1 %; Platelet Count 360 K/uL (130-400); RDW Coefficient of Variation 13.9 % (11.5-14.5); RDW Standard Deviation 42.5 fL (36.4-46.3); Red Blood Count 3.64 M/uL (4.2-5.4); White Blood Count 13.46 K/uL (4.8-10.8)
[2020-08-29 06:48] LABS: BUN Creatinine Ratio 25.3 (10-20); Calcium 9.2 mg/dl (8.5-10.1); Creatinine Clr Calc Pharmacy 46.6 ml/min; Est GFR (African American) 54.9; Est GFR (Non-African American) 47.3; Magnesium 1.9 mg/dl (1.8-2.4); Potassium 3.4 mmol/L (3.5-5.1)
[2020-08-29 06:51] LABS: Albumin Globulin Ratio 0.5 (0.9-2); Bilirubin,Total 0.7 mg/dl (0.2-1); Globulin 4.4 gm/dl (2.5-4.0); Phosphorus 3.2 mg/dl (2.5-4.9); Total Protein 6.4 gm/dl (6.4-8.2)
--- NOTE | 2020-08-29 07:25 | XRay Report ---
XR chest 1V portable CLINICAL HISTORY: Shortness of breath. Abnormal chest x-ray. COMPARISON STUDY: 08/28/2020 FINDINGS: The cardiac and mediastinal contours remain stable. Trace pleural effusions are suspected. There is slight improvement in the bilateral pulmonary opacities.[ IMPRESSION: Persistent but improving bilateral pulmonary opacities. Suspected trace bilateral pleural effusions. ACT 112: Negative or not required by law. Electronically signed by: Dat Ornelas M.D. 08/29/2020 7:24 AM
[2020-08-29] MEDS ORDERED: POTASSIUM CHLORIDE 20 MEQ TABCR PO STA (07:41)
--- NOTE | 2020-08-29 07:41 | Critical Care Progress Note ---
Date of Service August 29, 2020 Assessment & Plan (1) Acute encephalopathy: Patient was discussed in multidisciplinary rounds this morning. I also discussed the case with Dr. Moseley who is her oncologist. Plan is for chemotherapy for follicular lymphoma when she is more stable as an outpatient. Patient is doing better today. She is on a low-dose phenylephrine and Precedex. I think we can wean the Precedex and likely to phenylephrine this morning. We will continue diuresis with 40 mg of IV Lasix. Replace electrolytes as there is evidence of hypokalemia. We can transition her off the BiPAP to nasal cannula or oxygen mask. Her encephalopathy is resolving which is likely related to sepsis and hypercapnia. I will switch her to ceftriaxone as it appears that she is growing E. coli that is pansensitive in her bloodstream. Repeat blood cultures from yesterday are pending to demonstrate clearance. Continue methylprednisone for possible ILD/COPD flare. I will switch her to prednisone, 40 mg daily for 7 days. 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 She may have Sjogren's/LIP related to her follicular lymphoma. Additionally, she has a pain pump that is ending its battery life soon and will need to be addressed in the near future. I am holding her Neurontin, Denise, p.o. iron and duloxetine at this time. Continue baclofen so that she does not go into withdrawal. Her renal function is improving this morning. She did have an echocardiogram that demonstrated moderate mitral regurg and moderate valvular aortic stenosis/aortic regurgitation. 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 Her forward flow is quite compromised. Continue diuretics as noted. She also has evidence of an NSTEMI with an elevated troponin. No wall motion abnormalities noted on the echo. Starting her on aspirin. Cardiology is following. Remain in the ICU today. No family available at bedside. I have personally spent 37 minutes of critical care time in the direct management of this patient. This is a life/limb threatening event. This includes time spent evaluating patient, direct bedside care, chart review, placing orders, interpretation of diagnostic studies, discussion with consultants, miller larios, and family members, as well as other required patient management activities. This time is exclusive of all separately billable procedures, and teaching time and separate from and in addition to any other critical care service time. Thank you for allowing us to participate in the care of this patient. (2) Gram-negative bacteremia: (3) Moderate aortic stenosis: (4) Mild aortic regurgitation: (5) Moderate mitral regurgitation: (6) Acute hypoxemic respiratory failure: (7) Pulmonary edema: (8) NSTEMI (non-ST elevated myocardial infarction): (9) Acute hypercapnic respiratory failure: Admission and Anticipated Discharge Date Admission Date: August 26, 2020 Subjective Patient is feeling much better today. She denies any chest pain. Shortness of breath is improved. She is currently on a low-dose of phenylephrine and a low- dose of Precedex. She is following commands and answering questions appropriately. She has a BiPAP in place. Saturations of 98% on 30% FiO2. Review of Systems Review of Systems: All systems reviewed & are unremarkable except as noted in HPI & below Physical Exam Constitutional: WD/WN, vitals as above Eyes: PERRL, conjunctivae normal, anicteric sclerae ENMT: external ear and nose normal, oropharynx normal Neck: normal visual inspection Respiratory: + tachypneic Auscultation: + crackles Cardiovascular: Rate/Rhythm: + tachycardic Heart Sounds: normal S1, normal S2 and + murmur Extremities: + edema Gastrointestinal (Abdomen): normal bowel sounds, soft, nontender, no hepatosplenomegaly Musculoskeletal: no cyanosis or clubbing, extremities motor strength 5/5 Skin: no rashes, warm and dry Neurologic: PERRL, EOMI, accommodation nl, no face palsy, no dysarthria Psychiatric: A+Ox3, euthymic affect Results & Data Results & Data ([facility]) Vital Signs (Past 12 Hours) Vital Signs Temp Pulse Pulse Resp BP BP Pulse Ox 08/29/20 06:05 67 18 111/85 99 08/29/20 05:45 72 16 98 08/29/20 05:00 71 18 109/77 99 08/29/20 04:00 98.1 F 81 18 130/60 97 08/29/20 03:21 76 17 98 08/29/20 03:00 72 18 122/76 99 08/29/20 02:00 76 18 121/83 99 08/29/20 01:00 80 18 118/77 98 08/28/20 23:09 80 16 104/72 98 08/28/20 22:54 92 H 15 105/72 97 10/20/20 22:39 82 16 101/71 98 08/28/20 22:30 83 16 98 08/28/20 22:24 86 15 103/73 99 08/28/20 22:20 87 16 98 08/28/20 22:09 90 16 101/71 100 08/28/20 21:54 88 16 103/70 100 08/28/20 21:39 85 16 100/72 100 08/28/20 21:24 88 18 100/70 100 08/28/20 21:09 90 14 97/66 L 99 08/28/20 20:54 86 17 94/66 L 100 08/28/20 20:41 95 H 17 99 08/28/20 20:39 95 H 17 99/68 L 99 08/28/20 20:38 94 H 17 102/70 99 08/28/20 20:09 92 H 18 93/66 L 98 08/28/20 19:54 94 H 17 89/63 L 99 08/28/20 19:39 99 H 17 90/59 L 98 I reviewed vital signs, labs and imaging Coding Level of Care Code Critical Care 1st 30-74 mins Diagnoses Acute encephalopathy G93.40 Gram-negative bacteremia R78.81 Moderate aortic stenosis I35.0 Mild aortic regurgitation I35.1 Moderate mitral regurgitation I34.0 Acute hypoxemic respiratory failure J96.01 Pulmonary edema J81.1 NSTEMI (non-ST elevated myocardial infarction) I21.4 Acute hypercapnic respiratory failure J96.02 Time Spent (min) 37
[2020-08-29] MEDS ORDERED: FUROSEMIDE 40 MG in SYRINGE 0 ML IV ONE (08:00)
--- NOTE | 2020-08-29 08:26 | Consultation Report ---
DATE OF CONSULTATION: 08/29/2020 REASON FOR CONSULTATION: Jessica 75-year-old female patient with grade 1-2 follicular lymphoma, stage III disease admitted to ICU for septicemia. HISTORY OF PRESENT ILLNESS: Lizeth Henry is a jessica 75-year-old female who was admitted to [facility] on 08/26/2020 with a fever of unknown origin. She has a past medical history of stage III follicular lymphoma, aortic stenosis and chronic back pain with an intrathecal pump, anxiety and depression. Apparently, the patient was in severe pain at the time of admission, unable to lie down. Daughter at bedside. Daughter had stated the patient lives independently and had a fall about 4 days prior to admission. According to the critical care physicians she has required pressure support, now suffers from gram-negative bacilli in her blood receiving broad-spectrum antibiotics. The patient is currently on BiPAP for respiratory support. Lizeth is a patient who was previously followed by Dr. Alexander prior to departure and then seen by her [employer] earlier this summer. My first engagement with Lizeth took place on 08/03/2020 when she had presented with progressive lower extremity edema. I suspected lymphatic obstruction. She had not been scanned since December 2019 and plans are underway for PET scanning. Unfortunately, Lizeth could not tolerate lying flat. Thus, a plan to prescribe antianxiety meds as well as oxycodone to assist her through the procedure. Unfortunately, ended up hospitalized prior to PET scanning. My plan was to see her within a month to discuss induction chemotherapy. PAST MEDICAL HISTORY: Again is significant for stage III follicular lymphoma, aortic regurgitation, moderate aortic stenosis, now with gram-negative bacteremia, exacerbation of CHF, pulmonary edema. PAST SURGICAL HISTORY: None. MEDICATIONS: Morphine intrathecal pump dose unknown, baclofen 50 mcg intrathecally daily, trazodone 25-50 mg p.o. at bedtime p.r.n., Relafen 750 mg p.o. b.i.d., multivitamin 2 tablets p.o. every day, Prevacid 30 mg p.o. daily, hydrochlorothiazide 25 mg p.o. daily, Neurontin 100 mg p.o. at bedtime, Cymbalta 120 mg p.o. daily, calcium carbonate 1 tablet p.o. daily, melatonin 5 mg p.o. at bedtime, ferrous sulfate 325 mg p.o. daily, Flonase 2 sprays intranasally p.r.n., Krill oil 500 mg p.o. daily, hydromorphone intrathecally daily, vitamin B complex 1 tablet p.o. every day, nicotine chewing gum 2 mg p.o. 2 hours, [id number] mg p.o. daily, cholecalciferol 2000 units p.o. daily, baclofen 90 mcg intrathecally daily, aspirin 81 mg p.o. daily, acetaminophen 1000 mg p.o. at bedtime p.r.n. ALLERGIES: NICKEL, SULFA, LATEX. SOCIAL HISTORY: The patient is an active smoker. She lives independently, is a . FAMILY HISTORY: Father suffered from aortic aneurysm and colorectal cancer. Maternal grandmother also suffered from cancer. REVIEW OF SYSTEMS: Unobtainable. PHYSICAL EXAMINATION: GENERAL: A 75-year-old female. Awake, alert, does answer direct questions, in no acute distress. VITAL SIGNS: Temperature 36.7, pulse 67, respiratory rate 18, blood pressure 111/85. SKIN: Turgor is fair. No rashes or lesions. HEENT: Limited examination; BiPAP in place. She does open her eyes and track spontaneously. NECK: Supple. LYMPH: No palpable cervical or supraclavicular lymphadenopathy. HEART: Regular rate and rhythm. LUNGS: Diminished breath sounds and fine rales in the posterior bases. ABDOMEN: Soft, nontender, nondistended. EXTREMITIES: Lymphedema of the left lower extremity. She has trace peripheral edema bilaterally. NEUROLOGIC: Grossly intact. LABORATORY DATA: WBC count 13,460, hemoglobin 10.2, platelet count 360,000. Absolute neutrophil count 12,450. She has got a few nucleated RBCs noted on peripheral blood. Sodium 138, potassium 3.4, chloride 105, carbon dioxide 26, BUN 29, creatinine 1.14. Alkaline phosphatase 139, AST mildly elevated at 43., BMP 30,174. Albumin. IMPRESSION: 1. Metabolic encephalopathy. 2. Gram-negative bacteremia. 3. Stage III follicular non-Hodgkin lymphoma. 4. Moderate aortic stenosis. 5. Mild aortic valve regurgitation. 6. Pulmonary edema. . PLAN: Lizeth Henry is a pleasant 75-year-old well known to [facility] with stage III follicular non-Hodgkin lymphoma. As I previously stated my first encounter with Lizeth took place in late July 2020. She had been previously seen by Dr. Alexander and and plans were underway perhaps to provide induction chemotherapy because of lower extremity lymphatic obstruction. She has not been scanned since December 2019. Thus, planned to obtain PET scan. Unfortunately, because of her chronic pain issues and anxiety she was unable to carry out the PET. Therefore, had planned to give her a sedating medication to assist her through the PET and was planning to see her in the coming weeks to discuss findings and a therapeutic plan. Obviously with gram-negative bacteremia she is in no shape to receive any form of treatment at this time; however, we will reevaluate her on recovery. Outpatient followup has been established. I have nothing further to add from a medical standpoint and agree with current medical management. If there are any specific questions or concerns, feel free to contact me at any time. I will check in on Lizeth periodically during her hospital stay. Thank you again for allowing me to participate in her care. JOSÉ LUIS
[2020-08-29] MEDS: HEPARIN SOD 5,000 UNIT/0.5 ML VIAL SQ SCH ×2 (08:28→21:20)
[2020-08-29] MEDS: predniSONE 20 MG TAB PO SCH (08:28)
[2020-08-29] MEDS: cefTRIAXone SODIUM 2,000 MG in DEXTROSE 5% 50 ML IV SCH (08:28)
[2020-08-29] MEDS: ASPIRIN 81 MG ECTAB PO SCH (08:28)
[2020-08-29] MEDS: POLYETHYLENE (MIRALAX) 17 GM PACK PO SCH (08:32)
[2020-08-29] MEDS: PANTOprazole 40 MG TAB PO SCH (08:33)
[2020-08-29] MEDS: DOCUSATE SODIUM/SENNA 50/8.6MG TAB PO SCH (08:33)
[2020-08-29] MEDS: POTASSIUM CHLORIDE / WTR 10 MEQ/100 ML PLCT IV SCH ×2 (08:42→10:14)
[2020-08-29] MEDS ORDERED: ONDANSETRON INJ 2 MG/ML 2 ML VIAL IV ONE (09:15)
[2020-08-29] MEDS ORDERED: BACLOFEN 50 MCG/ML ITR SCH (09:45)
--- NOTE | 2020-08-29 10:34 | Cardiology Progress Note ---
Date of Service August 29, 2020 Assessment & Plan (1) Bacteremia due to Gram-negative bacteria: Responding to antibiotics, unlikely to be endocarditis given organism identified as E. coli. No plans for further cardiac evaluation at this time. (2) Pulmonary edema: Resolved with volume unloading, respiratory support, close clinical attention in ICU. (3) Moderate aortic stenosis: (4) Moderate mitral regurgitation: (5) Septic shock: Resolving, requires minimal pressor support currently. Continue to wean. She did demonstrate adrenergic reserve yesterday during her respiratory distress with periods of actual hypertension. Admission and Anticipated Discharge Date Admission Date: August 26, 2020 Subjective After eventful day yesterday culminating in transfer to ICU, she is doing much better today. Breathing easily, no longer in respiratory distress. Sinus tachycardia r esolved. She is on low-dose phenylephrine for hypotension, but she is currently normotensive and this is being weaned. Microbiology shows E. coli it is a source for bacteremia, making endocarditis un likely. Physical Exam Physical Exam: Elderly white female appears comfortable. Afebrile overnight. BP 104/73 (on low-dose phenylephrine), pulse 61 and regular, respirations 14. Skin: few ecchymoses, no generalized lesions. HEENT: unremarkable. Neck: Jugular venous pulse at the clavicle at 90 degrees, Lungs: No further wheezing, generally clear. Cardiac: Regular rhythm with 3/6 crescendo decrescendo systolic ejection murmur right upper sternal border radiating to the carotids, 3/6 apical holosystolic murmur radiating to the axilla. No diastolic murmur. Aortic closure sound diminished. Abdomen benign. Extremities: no edema, pulses brisk. Neurologic: mildly blunted affect, nonfocal. Results & Data ([facility]) Laboratory Results WBC 13.4, hemoglobin improved to 10.2, normal platelet count. Potassium 3.4, BUN 29, creatinine 1.14. Troponin initially peaked at 7.9 on 08/27, second peak of 5.2 yesterday evening, values declining this morning. Diagnostic Findings Chest x-ray showed persistent but improving bilateral pulmonary opacities and trace bilateral pleural effusions. ECG from today not yet available. PG Care Time/CCT Total # of Minutes Spent Total Time Spent with Patient: Total time spent is greater than 50% in coordination of care (as documented) at patient's floor/unit and/or counseling patient: Coding Level of Care Code 63829 Subseq Hosp Care Lvl 3 Diagnoses Bacteremia due to Gram-negative bacteria R78.81 Pulmonary edema J81.1 Moderate aortic stenosis I35.0 Moderate mitral regurgitation I34.0 Septic shock A41.9; R65.21
[2020-08-29] MEDS: BACLOFEN 50 MCG/ML ITR SCH (11:14)
--- NOTE | 2020-08-29 12:53 | Electrocardiogram Report ---
Test Reason : Blood Pressure : / mmHG Vent. Rate : 146 BPM Atrial Rate : 146 BPM P-R Int : 134 ms QRS Dur : 088 ms QT Int : 260 ms P-R-T Axes : 066 022 089 degrees QTc Int : [address] depression in Anterolateral leads , consider ischemia Abnormal ECG When compared with ECG of 28-AUG-2020 08:55, Vent. rate has increased BY [address] now depressed in Anterolateral leads Confirmed by Marshal Connor ([id number] on 08/29/2020 12:52:37 PM Referred By: REFERRED SELF Confirmed By:Marshal Connor
[2020-08-29 14:04] LABS: Calcium 9.2 mg/dl (8.5-10.1); Potassium 3.5 mmol/L (3.5-5.1)
[2020-08-29 14:05] LABS: Creatinine Clr Calc Pharmacy 58.4 ml/min; Est GFR (Non-African American) 62.2
[2020-08-29 14:06] LABS: Magnesium 1.8 mg/dl (1.8-2.4); Phosphorus 2.7 mg/dl (2.5-4.9)
[2020-08-29] MEDS ORDERED: MAGNESIUM SULFATE / D5W 1 GM/100 ML BAG IV ONE (15:15)
[2020-08-29] MEDS ORDERED: POTASSIUM CHLORIDE 20 MEQ TABCR PO ONE (15:15)
[2020-08-29] MEDS: AZITHROMYCIN 500 MG in DEXTROSE 5% 250 ML IV SCH (16:24)
--- NOTE | 2020-08-29 16:26 | Hospitalist Progress Note ---
Date of Service August 29, 2020 Assessment & Plan (1) Septicemia: Ms. Henry is a 75yo female with a PMHx significant for follicular lymphoma, aortic stenosis, chronic back pain and post-laminectomy syndrome with placement of an intrathecal pump, anxiety, GERD, HLD, HTN, insomnia and depres jacy who presents with a persistent fever x2 weeks and intractable back pain after a fall at home 4 days ago. Has been treated for UTIs with 2 rounds of Macrobid in the last 2 weeks. Fever-resolved, growing pansensitive E. coli in blood cultures-most likely secondary to previous UTI With acute metabolic encephalopathy upon presentation which is now resolved Back pain likely secondary to developing pyelonephritis-now much improved CT abdomen/pelvis performed on the evening of admission shows no bowel obstruction or bowel wall thickening, nonspecific enteritis, some pathologic adenopathy improved from previous, emphysema, unchanged aneurysmal dilation of the ascending thoracic aorta 4.6 cm, status post cholecystectomy and with normal liver. She did also have prominence of the bilateral renal pelvis ease without abril hydronephrosis Urinalysis here with epithelial cells contaminating, 5-10 WBCs and 1+ leukocyte esterase, negative for bacteria, but also recently completed another course of Macrobid which could be making her have a false negative urinalysis A urine culture was not sent upon admission -CTA chest with no evidence of pneumonia (notes 4.5cm aortic aneurysm, 8mm nodule in CAREY, axillary lymphadenopathy) but does have cystic changes as per pulmonology -COVID NEGATIVE as of 08/08/2020-negative again on 08/28 [facility] viral respiratory panel negative on 08/28 -Temp of 38.2 on admission, WBC >11, 000 and was improved down to 8-now back up to 13 after acute respiratory distress on 08/28 Procalcitonin of 0.57 on admission which is now up to 65 LFTs mildly elevated but no abdominal pain and no findings to explain this on CT from admission-likely secondary to sepsis versus medication side effect Echocardiogram without vegetation and with E. coli bacteremia-most likely not endocarditis -Repeat blood cultures on 08/27 again with E. coli -Repeat blood cultures on 08/28-no growth to date -Discontinue meropenem and started ceftriaxone on 08/29 -With septic shock as below which is now resolved -Follow CBC, CMP, procalcitonin in the morning (2) Septic shock: With hypotension with blood pressures in the 60s systolic overnight on 08/27-08/28 requiring multiple boluses of IV fluids PRBC transfusion was given for hemoglobin less than 10 in the setting of NSTEMI Blood pressures remained borderline low in the 70s to 80s systolic at times Transferred to ICU and placed on Jovanni-Synephrine on the night of 08/28-has now been weaned off and blood pressures are much improved Appreciate [employer] consultation Continue treat with antibiotics as below Now receiving IV Lasix for volume overload (3) Acute hypoxemic respiratory failure: Had been requiring oxygen upon admission and then acutely worsened with significant respiratory distress after volume resuscitation and PRBC transfusion on 08/28 for profound hypotension Chest x-ray with worsening pulmonary edema on 08/28 and now much improved on imaging 08/29 Troponin trended downward to 4 and ECG without ischemic changes ABG 7.3 on BiPAP 45% FiO2, now improved to 7.4 on 35% FiO2 Placed on BiPAP, given IV Lasix and now much improved-now weaned to 2 L nasal cannula TRALI labs sent by [employer]-pathology interpretation is TACO Transferred to ICU on 08/28-we will remain there for now Also with some chronic appearing cystic changes on chest CT-pulmonology questions if has Sjogren's syndrome versus LIP-needs outpatient follow-up -Continue prednisone 40 mg daily x7 days Follow chest x-ray (4) Acute encephalopathy: Acute metabolic encephalopathy as above, secondary to septic shock, respiratory failure-now completely resolved and significantly improved Was on a Precedex drip overnight 08/28 which helped her maintain the BiPAP (5) Elevated troponin: Type II NM due to demand ischemia -Trops elevated to 0.643 on admission and has now trended up to 7 and back down to 4 With moderate aortic stenosis -EKG with noted sinus tach, absence of chest pain Appreciate cardiology consultation-discussed with cardiology-most likely myocardial demand ischemia Echocardiogram here without wall motion abnormalities and with preserved EF, moderate aortic stenosis Repeat ECG with improvement in previous changes in anterior leads Transfused 1 unit PRBCs on 08/28 to keep hemoglobin closer to 10 and then had TACO as noted above (6) Fever: Secondary to septicemia as above-now resolved Tylenol as needed (7) Presence of intrathecal pump: Seen by pain management here, she will have a delay in the replacement of the battery of her intrathecal pump until 2 weeks after finished with antibiotics for septicemia Has hydromorphone, bupivacaine, and baclofen in her pump Discussed her care with her pain management physician, Dr. Erickson, who said that the patient is nowhere near running out of her pump-her battery would be good to at least November (8) Persistent insomnia: Continue home trazodone (9) Hypokalemia: Improved but persists -Continue to hold home HCTZ -replete with potassium Follow BMP and magnesium in the morning (10) Constipation: Ordered MiraLAX and senna/docusate She did have a bowel movement on the morning of 08/27 and again when I saw her in the afternoon of 08/28 (11) Peripheral edema: Secondary to lymphedema most likely from lymphoma in groin Doppler of lower extremities on admission was negative for DVT (12) Gastroesophageal reflux disease: -continue PPI (13) Depression: Currently home medications were on hold for metabolic encephalopathy Plan to restart home Cymbalta in the morning (14) Chronic pain syndrome: Intractable Back Pain/Lumbar post Laminectomy Syndrome -Pt with intrathecal pump dispensing hydromorphone, bupivacaine, baclofen. Due for replacement on 09/03/2020. -Dilaudid 0.5mg q2h PRN ordered for pain initially but pain management recommends against this-has since been discontinued -Currently holding home cymbalta 120mg daily, gabapentin 100mg qhs but will restart likely tomorrow Holding home nabumetone 750mg BID Appreciate pain management consultation -PT/OT pending -given fall at home (pt lives alone), consult to CM placed for discharge planning (15) Hyperlipidemia: On Krill oil at home-holding while inpatient (16) Hypertension: -hypotensive as above -Continue to hold home HCTZ (17) Follicular lymphoma: -due for port placement after intrathecal pump replaced which will now be delayed due to septicemia -will start chemotherapy once port placed Consult her wool fleece grader/oncologist is appreciated-nothing further to do at this point in time until recovered from acute illness (18) Aortic stenosis: Moderate as noted on echocardiogram Avoid extremes of volume and hypotension (19) Anxiety disorder, unspecified: Insomnia/Depression/Anxiety -Holding home melatonin, continue trazodone qhs as needed -Holding home cymbalta 120mg daily, gabapentin 100mg qhs Was on Precedex drip overnight in the ICU which is now weaned off (20) DVT prophylaxis: Heparin SQ Disposition-continued stay in the ICU Admission and Anticipated Discharge Date Admission Date: August 26, 2020 Subjective Is remarkably improved today. Weaned off phenylephrine this morning Her mental status is completely back to normal and wean off Precedex. Also weaned off the BiPAP this morning is on nasal cannula and breathing comfortably. her mental status is completely back to normal. She denies any chest pain or shortness of breath, no abdominal pain. She was able to tell me why she is in the hospital and that she has an infection in her bladder that spread to her bloodstream. She had some tachycardia today that was suspicious for atrial tachycardia but otherwise a normal sinus rhythm Review of Systems Review of Systems: All systems reviewed & are unremarkable except as noted in HPI & below Physical Exam Constitutional: WD/WN, vitals as above no acute distress Eyes: + anicteric sclerae Neck: trachea midline, no thyromegaly Respiratory: normal respiratory effort, lungs clear to auscultation Cardiovascular: Heart Sounds: + murmur (2/6 KENDRA at RUSB) Extremities: + edema (Trace pitting edema left greater than right, chronic from previous) Chest (Breasts): Chest: normal inspection of chest Gastrointestinal (Abdomen): normal bowel sounds, soft, nontender, no hepatosplenomegaly Musculoskeletal: Extremities: extremities normal to inspection; no cyanosis and no clubbing Skin: no rashes, warm and dry Neurologic: moves all extremities and awake; no focal motor deficits Psychiatric: A+Ox3, euthymic affect Orientation: cooperative Genitourinary: + abnormal external appearance (Noble catheter in place draining clear yellow urine) Results & Data Results & Data ([facility] [place]) Vital Signs (Past 12 Hours) Vital Signs Temp Pulse Pulse Pulse Resp BP BP 08/29/20 15:03 86 21 103/72 08/29/20 11:07 80 15 111/70 08/29/20 10:37 82 15 113/74 08/29/20 10:07 80 17 107/78 08/29/20 09:07 81 15 94/70 L 08/29/20 08:25 36.9 C 61 14 104/73 08/29/20 08:07 36.6 C 87 20 101/71 08/29/20 08:00 70 08/29/20 07:07 76 19 102/69 08/29/20 06:05 67 18 111/85 08/29/20 05:45 72 16 08/29/20 05:00 71 18 109/77 Pulse Ox 08/29/20 15:03 91 08/29/20 11:07 93 08/29/20 10:37 94 08/29/20 10:07 92 08/29/20 09:07 92 08/29/20 08:25 99 08/29/20 08:07 93 08/29/20 08:00 08/29/20 07:07 98 08/29/20 06:05 99 08/29/20 05:45 98 08/29/20 05:00 99 Laboratory Results 08/29/20 08/29/20 08/29/20 Range/Units 13:35 11:32 11:20 WBC (4.8-10.8) K/uL RBC (4.2-5.4) M/uL Hgb (12.0-16.0) g/dL POC Hgb (12.0-16.0) g/dl Hct (37-47) % POC Hct (37-47) % MCV (80-100) fL MCH (25-34) pg MCHC (32-36) g/dL RDW Std Deviation (36.4-46.3) fL RDW Coeff of Inge (11.5-14.5) % Plt Count (130-400) K/uL MPV (7.4-10.4) fL Immature Gran % (Auto) % Neut % (Auto) % Lymph % (Auto) % [place] % (Auto) % Eos % (Auto) % Baso % (Auto) % Neut # (Auto) (1.4-6.5) K/uL Lymph # (Auto) (1.2-3.4) K/uL [place] # (Auto) (0.11-0.59) K/uL Eos # (Auto) (0-0.5) K/uL Baso # (Auto) (0-0.2) K/uL Immature Gran # (Auto) (0.00-0.02) K/uL Absolute Nucleated RBC (0-0) K/uL Nucleated RBC % (auto) % Sample Site POC pH (7.35-7.45) POC pCO2 (35-46) mmHg POC pO2 (80-95) mmHg POC HCO3 (19-24) rafy/L POC Total CO2 (24-31) mmol/L POC Base Excess (-9-1.8) rafy/L ABG pH (Temp Correct) (7.35-7.45) ABG pCO2 (Temp Corrct (35-46) mmHg POC ABG pO2 at Pt Temp POC ABG O2 Sat (90-95) % Yayo Test O2 Delivery Device POC O2 Rate POC FiO2 % IPAP POC Sodium (135-144) mmol/L Sodium 137 (136-145) mmol/L POC Potassium (3.3-5.0) mmol/L Potassium 3.5 (3.5-5.1) mmol/L Chloride 105 (98-107) mmol/L Carbon Dioxide 26 (21-32) mmol/L Anion Gap 6.0 (3-11) BUN 30 H (7-18) mg/dl Creatinine 0.91 (0.6-1.2) mg/dl Est Cr Clr Drug Dosing 58.4 ml/min Est GFR ( Amer) 72.0 Est GFR (Non-Af Amer) 62.2 BUN/Creatinine Ratio 33.0 H (10-20) Glucose 137 H (70-99) mg/dl POC Glucose 142 H 152 H (70-99) mg/dl Lactate (0.4-2.0) mmol/L Calcium 9.2 (8.5-10.1) mg/dl Phosphorus 2.7 (2.5-4.9) mg/dl Magnesium 1.8 (1.8-2.4) mg/dl Total Bilirubin (0.2-1) mg/dl AST (15-37) U/L ALT (12-78) U/L Alkaline Phosphatase (45-117) U/L Lactate Dehydrogenase (84-246) U/L Troponin I (0-0.045) ng/ml NT-Pro-B Natriuret Pep (0-900) pg/ml Total Protein (6.4-8.2) gm/dl Albumin (3.4-5.0) gm/dl Globulin (2.5-4.0) gm/dl Albumin/Globulin Ratio (0.9-2) Procalcitonin (0-0.5) ng/ml TSH (0.300-4.500) uIu/ml Urine Blood (Negative) Urine RBC (Auto) (0-4) /hpf Nasal Screen MRSA (PCR) (Negative) Adenovirus (PCR) (NotDetected) B. pertussis DNA (PCR) (NotDetected) B.parapertussis DNA PCR (NotDetected) C. pneumoniae DNA (PCR) (NotDetected) Coronavirus OC43 (PCR) (NotDetected) Coronavirus HKU1 (PCR) (NotDetected) Coronavirus 229E (PCR) (NotDetected) COVID-19 PCR (Negative) Coronavirus NL63 (PCR) (NotDetected) Human Metapneumovir PCR (NotDetected) Influenza Type A (PCR) (NotDetected) Influenza Type B (PCR) (NotDetected) M. pneumoniae (PCR) (NotDetected) Parainfluenza 1 (PCR) (NotDetected) Parainfluenza 2 (PCR) (NotDetected) Parainfluenza 3 (PCR) (NotDetected) Parainfluenza 4 (PCR) (NotDetected) RSV (PCR) (NotDetected) Entero/Rhino (PCR) (NotDetected) Transfusion React Date Transfusion React Time Tx React Symptoms Reaction Clerical Check Lab Clerical Err Check React Component Return Volume Returned Pre-Trans Blood Type Pre-Trans Vis Hemolysis Pre-Trans COLE (Negative) Pre-Trans COLE IgG (Negative) Pre-Trans COLE Poly (Negative) Pre-Trans COLE C3b, C3d (Negative) Post-Trans Blood Type Post-Tx Visible Hemolys Post-Trans COLE (Negative) Post-Trans COLE IgG (Negative) Post-Trans COLE Poly (Negative) Post-Trans COLE C3b, C3d (Negative) Post-Trans Ur Hemoglobin Reaction Path Interpret Transfusion Serv Com 08/29/20 08/29/20 08/29/20 Range/Units 10:30 07:33 05:46 WBC (4.8-10.8) K/uL RBC (4.2-5.4) M/uL Hgb (12.0-16.0) g/dL POC Hgb (12.0-16.0) g/dl Hct (37-47) % POC Hct (37-47) % MCV (80-100) fL MCH (25-34) pg MCHC (32-36) g/dL RDW Std Deviation (36.4-46.3) fL RDW Coeff of Inge (11.5-14.5) % Plt Count (130-400) K/uL MPV (7.4-10.4) fL Immature Gran % (Auto) % Neut % (Auto) % Lymph % (Auto) % [place] % (Auto) % Eos % (Auto) % Baso % (Auto) % Neut # (Auto) (1.4-6.5) K/uL Lymph # (Auto) (1.2-3.4) K/uL [place] # (Auto) (0.11-0.59) K/uL Eos # (Auto) (0-0.5) K/uL Baso # (Auto) (0-0.2) K/uL Immature Gran # (Auto) (0.00-0.02) K/uL Absolute Nucleated RBC (0-0) K/uL Nucleated RBC % (auto) % Sample Site POC pH (7.35-7.45) POC pCO2 (35-46) mmHg POC pO2 (80-95) mmHg POC HCO3 (19-24) rafy/L POC Total CO2 (24-31) mmol/L POC Base Excess (-9-1.8) rafy/L ABG pH (Temp Correct) (7.35-7.45) ABG pCO2 (Temp Corrct (35-46) mmHg POC ABG pO2 at Pt Temp POC ABG O2 Sat (90-95) % Yayo Test O2 Delivery Device POC O2 Rate POC FiO2 % IPAP POC Sodium (135-144) mmol/L Sodium (136-145) mmol/L POC Potassium (3.3-5.0) mmol/L Potassium (3.5-5.1) mmol/L Chloride (98-107) mmol/L Carbon Dioxide (21-32) mmol/L Anion Gap (3-11) BUN (7-18) mg/dl Creatinine (0.6-1.2) mg/dl Est Cr Clr Drug Dosing ml/min Est GFR ( Amer) Est GFR (Non-Af Amer) BUN/Creatinine Ratio (10-20) Glucose (70-99) mg/dl POC Glucose 143 H (70-99) mg/dl Lactate (0.4-2.0) mmol/L Calcium (8.5-10.1) mg/dl Phosphorus (2.5-4.9) mg/dl Magnesium (1.8-2.4) mg/dl Total Bilirubin (0.2-1) mg/dl AST (15-37) U/L ALT (12-78) U/L Alkaline Phosphatase (45-117) U/L Lactate Dehydrogenase (84-246) U/L Troponin I (0-0.045) ng/ml NT-Pro-B Natriuret Pep (0-900) pg/ml Total Protein (6.4-8.2) gm/dl Albumin (3.4-5.0) gm/dl Globulin (2.5-4.0) gm/dl Albumin/Globulin Ratio (0.9-2) Procalcitonin 65.55 H (0-0.5) ng/ml TSH (0.300-4.500) uIu/ml Urine Blood (Negative) Urine RBC (Auto) (0-4) /hpf Nasal Screen MRSA (PCR) Negative (Negative) Adenovirus (PCR) (NotDetected) B. pertussis DNA (PCR) (NotDetected) B.parapertussis DNA PCR (NotDetected) C. pneumoniae DNA (PCR) (NotDetected) Coronavirus OC43 (PCR) (NotDetected) Coronavirus HKU1 (PCR) (NotDetected) Coronavirus 229E (PCR) (NotDetected) COVID-19 PCR (Negative) Coronavirus NL63 (PCR) (NotDetected) Human Metapneumovir PCR (NotDetected) Influenza Type A (PCR) (NotDetected) Influenza Type B (PCR) (NotDetected) M. pneumoniae (PCR) (NotDetected) Parainfluenza 1 (PCR) (NotDetected) Parainfluenza 2 (PCR) (NotDetected) Parainfluenza 3 (PCR) (NotDetected) Parainfluenza 4 (PCR) (NotDetected) RSV (PCR) (NotDetected) Entero/Rhino (PCR) (NotDetected) Transfusion React Date Transfusion React Time Tx React Symptoms Reaction Clerical Check Lab Clerical Err Check React Component Return Volume Returned Pre-Trans Blood Type Pre-Trans Vis Hemolysis Pre-Trans COLE (Negative) Pre-Trans COLE IgG (Negative) Pre-Trans COLE Poly (Negative) Pre-Trans COLE C3b, C3d (Negative) Post-Trans Blood Type Post-Tx Visible Hemolys Post-Trans COLE (Negative) Post-Trans COLE IgG (Negative) Post-Trans COLE Poly (Negative) Post-Trans COLE C3b, C3d (Negative) Post-Trans Ur Hemoglobin Reaction Path Interpret Transfusion Serv Com 08/29/20 08/29/20 08/29/20 Range/Units 05:46 05:46 05:46 WBC 13.46 H (4.8-10.8) K/uL RBC 3.64 L (4.2-5.4) M/uL Hgb 10.2 L (12.0-16.0) g/dL POC Hgb (12.0-16.0) g/dl Hct 30.4 L (37-47) % POC Hct (37-47) % MCV 83.5 (80-100) fL MCH 28.0 (25-34) pg MCHC 33.6 (32-36) g/dL RDW Std Deviation 42.5 (36.4-46.3) fL RDW Coeff of Inge 13.9 (11.5-14.5) % Plt Count 360 (130-400) K/uL MPV 10.5 H (7.4-10.4) fL Immature Gran % (Auto) 0.4 % Neut % (Auto) 92.5 % Lymph % (Auto) 3.4 % [place] % (Auto) 3.7 % Eos % (Auto) 0.0 % Baso % (Auto) 0.0 % Neut # (Auto) 12.45 H (1.4-6.5) K/uL Lymph # (Auto) 0.46 L (1.2-3.4) K/uL [place] # (Auto) 0.50 (0.11-0.59) K/uL Eos # (Auto) 0.00 (0-0.5) K/uL Baso # (Auto) 0.00 (0-0.2) K/uL Immature Gran # (Auto) 0.05 H (0.00-0.02) K/uL Absolute Nucleated RBC 0.02 H (0-0) K/uL Nucleated RBC % (auto) 0.1 % Sample Site POC pH (7.35-7.45) POC pCO2 (35-46) mmHg POC pO2 (80-95) mmHg POC HCO3 (19-24) rafy/L POC Total CO2 (24-31) mmol/L POC Base Excess (-9-1.8) rafy/L ABG pH (Temp Correct) (7.35-7.45) ABG pCO2 (Temp Corrct (35-46) mmHg POC ABG pO2 at Pt Temp POC ABG O2 Sat (90-95) % Yayo Test O2 Delivery Device POC O2 Rate POC FiO2 % IPAP POC Sodium (135-144) mmol/L Sodium 138 (136-145) mmol/L POC Potassium (3.3-5.0) mmol/L Potassium 3.4 L (3.5-5.1) mmol/L Chloride 105 (98-107) mmol/L Carbon Dioxide 26 (21-32) mmol/L Anion Gap 7.0 (3-11) BUN 29 H (7-18) mg/dl Creatinine 1.14 (0.6-1.2) mg/dl Est Cr Clr Drug Dosing 46.6 ml/min Est GFR ( Amer) 54.9 Est GFR (Non-Af Amer) 47.3 BUN/Creatinine Ratio 25.3 H (10-20) Glucose 134 H (70-99) mg/dl POC Glucose (70-99) mg/dl Lactate (0.4-2.0) mmol/L Calcium 9.2 (8.5-10.1) mg/dl Phosphorus 3.2 (2.5-4.9) mg/dl Magnesium 1.9 (1.8-2.4) mg/dl Total Bilirubin 0.7 D (0.2-1) mg/dl AST 43 H (15-37) U/L ALT 44 (12-78) U/L Alkaline Phosphatase 139 H (45-117) U/L Lactate Dehydrogenase (84-246) U/L Troponin I 4.480 H* (0-0.045) ng/ml NT-Pro-B Natriuret Pep (0-900) pg/ml Total Protein 6.4 (6.4-8.2) gm/dl Albumin 2.0 L (3.4-5.0) gm/dl Globulin 4.4 H (2.5-4.0) gm/dl Albumin/Globulin Ratio 0.5 L (0.9-2) Procalcitonin (0-0.5) ng/ml TSH (0.300-4.500) uIu/ml Urine Blood (Negative) Urine RBC (Auto) (0-4) /hpf Nasal Screen MRSA (PCR) (Negative) Adenovirus (PCR) (NotDetected) B. pertussis DNA (PCR) (NotDetected) B.parapertussis DNA PCR (NotDetected) C. pneumoniae DNA (PCR) (NotDetected) Coronavirus OC43 (PCR) (NotDetected) Coronavirus HKU1 (PCR) (NotDetected) Coronavirus 229E (PCR) (NotDetected) COVID-19 PCR (Negative) Coronavirus NL63 (PCR) (NotDetected) Human Metapneumovir PCR (NotDetected) Influenza Type A (PCR) (NotDetected) Influenza Type B (PCR) (NotDetected) M. pneumoniae (PCR) (NotDetected) Parainfluenza 1 (PCR) (NotDetected) Parainfluenza 2 (PCR) (NotDetected) Parainfluenza 3 (PCR) (NotDetected) Parainfluenza 4 (PCR) (NotDetected) RSV (PCR) (NotDetected) Entero/Rhino (PCR) (NotDetected) Transfusion React Date Transfusion React Time Tx React Symptoms Reaction Clerical Check Lab Clerical Err Check React Component Return Volume Returned Pre-Trans Blood Type Pre-Trans Vis Hemolysis Pre-Trans COLE (Negative) Pre-Trans COLE IgG (Negative) Pre-Trans COLE Poly (Negative) Pre-Trans COLE C3b, C3d (Negative) Post-Trans Blood Type Post-Tx Visible Hemolys Post-Trans COLE (Negative) Post-Trans COLE IgG (Negative) Post-Trans COLE Poly (Negative) Post-Trans COLE C3b, C3d (Negative) Post-Trans Ur Hemoglobin Reaction Path Interpret Transfusion Serv Com 08/29/20 08/28/20 08/28/20 Range/Units 05:41 Unknown Unknown WBC (4.8-10.8) K/uL RBC (4.2-5.4) M/uL Hgb (12.0-16.0) g/dL POC Hgb (12.0-16.0) g/dl Hct (37-47) % POC Hct (37-47) % MCV (80-100) fL MCH (25-34) pg MCHC (32-36) g/dL RDW Std Deviation (36.4-46.3) fL RDW Coeff of Inge (11.5-14.5) % Plt Count (130-400) K/uL MPV (7.4-10.4) fL Immature Gran % (Auto) % Neut % (Auto) % Lymph % (Auto) % [place] % (Auto) % Eos % (Auto) % Baso % (Auto) % Neut # (Auto) (1.4-6.5) K/uL Lymph # (Auto) (1.2-3.4) K/uL [place] # (Auto) (0.11-0.59) K/uL Eos # (Auto) (0-0.5) K/uL Baso # (Auto) (0-0.2) K/uL Immature Gran # (Auto) (0.00-0.02) K/uL Absolute Nucleated RBC (0-0) K/uL Nucleated RBC % (auto) % Sample Site L Radial POC pH 7.41 (7.35-7.45) POC pCO2 36 (35-46) mmHg POC pO2 90 (80-95) mmHg POC HCO3 22 (19-24) rafy/L POC Total CO2 23 L (24-31) mmol/L POC Base Excess -2.0 (-9-1.8) rafy/L ABG pH (Temp Correct) (7.35-7.45) ABG pCO2 (Temp Corrct (35-46) mmHg POC ABG pO2 at Pt Temp POC ABG O2 Sat 97.0 H (90-95) % Yayo Test Pass O2 Delivery Device BIPAP POC O2 Rate 16 POC FiO2 30 % IPAP 12 POC Sodium (135-144) mmol/L Sodium (136-145) mmol/L POC Potassium (3.3-5.0) mmol/L Potassium (3.5-5.1) mmol/L Chloride (98-107) mmol/L Carbon Dioxide (21-32) mmol/L Anion Gap (3-11) BUN (7-18) mg/dl Creatinine (0.6-1.2) mg/dl Est Cr Clr Drug Dosing ml/min Est GFR ( Amer) Est GFR (Non-Af Amer) BUN/Creatinine Ratio (10-20) Glucose (70-99) mg/dl POC Glucose (70-99) mg/dl Lactate (0.4-2.0) mmol/L Calcium (8.5-10.1) mg/dl Phosphorus (2.5-4.9) mg/dl Magnesium (1.8-2.4) mg/dl Total Bilirubin (0.2-1) mg/dl AST (15-37) U/L ALT (12-78) U/L Alkaline Phosphatase (45-117) U/L Lactate Dehydrogenase (84-246) U/L Troponin I (0-0.045) ng/ml NT-Pro-B Natriuret Pep (0-900) pg/ml Total Protein (6.4-8.2) gm/dl Albumin (3.4-5.0) gm/dl Globulin (2.5-4.0) gm/dl Albumin/Globulin Ratio (0.9-2) Procalcitonin (0-0.5) ng/ml TSH (0.300-4.500) uIu/ml Urine Blood (Negative) Urine RBC (Auto) (0-4) /hpf Nasal Screen MRSA (PCR) (Negative) Adenovirus (PCR) Not Detected (NotDetected) B. pertussis DNA (PCR) Not Detected (NotDetected) B.parapertussis DNA PCR Not Detected (NotDetected) C. pneumoniae DNA (PCR) Not Detected (NotDetected) Coronavirus OC43 (PCR) Not Detected (NotDetected) Coronavirus HKU1 (PCR) Not Detected (NotDetected) Coronavirus 229E (PCR) Not Detected (NotDetected) COVID-19 PCR Not Detected NEGATIVE (Negative) Coronavirus NL63 (PCR) Not Detected (NotDetected) Human Metapneumovir PCR Not Detected (NotDetected) Influenza Type A (PCR) Not Detected (NotDetected) Influenza Type B (PCR) Not Detected (NotDetected) M. pneumoniae (PCR) Not Detected (NotDetected) Parainfluenza 1 (PCR) Not Detected (NotDetected) Parainfluenza 2 (PCR) Not Detected (NotDetected) Parainfluenza 3 (PCR) Not Detected (NotDetected) Parainfluenza 4 (PCR) Not Detected (NotDetected) RSV (PCR) Not Detected (NotDetected) Entero/Rhino (PCR) Not Detected (NotDetected) Transfusion React Date Transfusion React Time Tx React Symptoms Reaction Clerical Check Lab Clerical Err Check React Component Return Volume Returned Pre-Trans Blood Type Pre-Trans Vis Hemolysis Pre-Trans COLE (Negative) Pre-Trans COLE IgG (Negative) Pre-Trans COLE Poly (Negative) Pre-Trans COLE C3b, C3d (Negative) Post-Trans Blood Type Post-Tx Visible Hemolys Post-Trans COLE (Negative) Post-Trans COLE IgG (Negative) Post-Trans COLE Poly (Negative) Post-Trans COLE C3b, C3d (Negative) Post-Trans Ur Hemoglobin Reaction Path Interpret Transfusion Serv Com 08/28/20 08/28/20 08/28/20 Range/Units 23:37 18:46 18:36 WBC (4.8-10.8) K/uL RBC (4.2-5.4) M/uL Hgb (12.0-16.0) g/dL POC Hgb (12.0-16.0) g/dl Hct (37-47) % POC Hct (37-47) % MCV (80-100) fL MCH (25-34) pg MCHC (32-36) g/dL RDW Std Deviation (36.4-46.3) fL RDW Coeff of Inge (11.5-14.5) % Plt Count (130-400) K/uL MPV (7.4-10.4) fL Immature Gran % (Auto) % Neut % (Auto) % Lymph % (Auto) % [place] % (Auto) % Eos % (Auto) % Baso % (Auto) % Neut # (Auto) (1.4-6.5) K/uL Lymph # (Auto) (1.2-3.4) K/uL [place] # (Auto) (0.11-0.59) K/uL Eos # (Auto) (0-0.5) K/uL Baso # (Auto) (0-0.2) K/uL Immature Gran # (Auto) (0.00-0.02) K/uL Absolute Nucleated RBC (0-0) K/uL Nucleated RBC % (auto) % Sample Site POC pH (7.35-7.45) POC pCO2 (35-46) mmHg POC pO2 (80-95) mmHg POC HCO3 (19-24) rafy/L POC Total CO2 (24-31) mmol/L POC Base Excess (-9-1.8) rafy/L ABG pH (Temp Correct) (7.35-7.45) ABG pCO2 (Temp Corrct (35-46) mmHg POC ABG pO2 at Pt Temp POC ABG O2 Sat (90-95) % Yayo Test O2 Delivery Device POC O2 Rate POC FiO2 % IPAP POC Sodium (135-144) mmol/L Sodium (136-145) mmol/L POC Potassium (3.3-5.0) mmol/L Potassium (3.5-5.1) mmol/L Chloride (98-107) mmol/L Carbon Dioxide (21-32) mmol/L Anion Gap (3-11) BUN (7-18) mg/dl Creatinine (0.6-1.2) mg/dl Est Cr Clr Drug Dosing ml/min Est GFR ( Amer) Est GFR (Non-Af Amer) BUN/Creatinine Ratio (10-20) Glucose (70-99) mg/dl POC Glucose (70-99) mg/dl Lactate 2.0 (0.4-2.0) mmol/L Calcium (8.5-10.1) mg/dl Phosphorus (2.5-4.9) mg/dl Magnesium (1.8-2.4) mg/dl Total Bilirubin (0.2-1) mg/dl AST (15-37) U/L ALT (12-78) U/L Alkaline Phosphatase (45-117) U/L Lactate Dehydrogenase (84-246) U/L Troponin I 4.810 H* (0-0.045) ng/ml NT-Pro-B Natriuret Pep (0-900) pg/ml Total Protein (6.4-8.2) gm/dl Albumin (3.4-5.0) gm/dl Globulin (2.5-4.0) gm/dl Albumin/Globulin Ratio (0.9-2) Procalcitonin (0-0.5) ng/ml TSH (0.300-4.500) uIu/ml Urine Blood 3+ H (Negative) Urine RBC (Auto) 10-30 H (0-4) /hpf Nasal Screen MRSA (PCR) (Negative) Adenovirus (PCR) (NotDetected) B. pertussis DNA (PCR) (NotDetected) B.parapertussis DNA PCR (NotDetected) C. pneumoniae DNA (PCR) (NotDetected) Coronavirus OC43 (PCR) (NotDetected) Coronavirus HKU1 (PCR) (NotDetected) Coronavirus 229E (PCR) (NotDetected) COVID-19 PCR (Negative) Coronavirus NL63 (PCR) (NotDetected) Human Metapneumovir PCR (NotDetected) Influenza Type A (PCR) (NotDetected) Influenza Type B (PCR) (NotDetected) M. pneumoniae (PCR) (NotDetected) Parainfluenza 1 (PCR) (NotDetected) Parainfluenza 2 (PCR) (NotDetected) Parainfluenza 3 (PCR) (NotDetected) Parainfluenza 4 (PCR) (NotDetected) RSV (PCR) (NotDetected) Entero/Rhino (PCR) (NotDetected) Transfusion React Date Transfusion React Time Tx React Symptoms Reaction Clerical Check Lab Clerical Err Check React Component Return Volume Returned Pre-Trans Blood Type Pre-Trans Vis Hemolysis Pre-Trans COLE (Negative) Pre-Trans COLE IgG (Negative) Pre-Trans COLE Poly (Negative) Pre-Trans COLE C3b, C3d (Negative) Post-Trans Blood Type Post-Tx Visible Hemolys Post-Trans COLE (Negative) Post-Trans COLE IgG (Negative) Post-Trans COLE Poly (Negative) Post-Trans COLE C3b, C3d (Negative) Post-Trans Ur Hemoglobin Reaction Path Interpret Transfusion Serv Com 08/28/20 08/28/20 08/28/20 Range/Units 18:36 17:48 17:45 WBC (4.8-10.8) K/uL RBC (4.2-5.4) M/uL Hgb (12.0-16.0) g/dL POC Hgb 9.9 L (12.0-16.0) g/dl Hct (37-47) % POC Hct 29 L (37-47) % MCV (80-100) fL MCH (25-34) pg MCHC (32-36) g/dL RDW Std Deviation (36.4-46.3) fL RDW Coeff of Inge (11.5-14.5) % Plt Count (130-400) K/uL MPV (7.4-10.4) fL Immature Gran % (Auto) % Neut % (Auto) % Lymph % (Auto) % [place] % (Auto) % Eos % (Auto) % Baso % (Auto) % Neut # (Auto) (1.4-6.5) K/uL Lymph # (Auto) (1.2-3.4) K/uL [place] # (Auto) (0.11-0.59) K/uL Eos # (Auto) (0-0.5) K/uL Baso # (Auto) (0-0.2) K/uL Immature Gran # (Auto) (0.00-0.02) K/uL Absolute Nucleated RBC (0-0) K/uL Nucleated RBC % (auto) % Sample Site R Radial POC pH 7.38 (7.35-7.45) POC pCO2 33 L (35-46) mmHg POC pO2 61 L (80-95) mmHg POC HCO3 20 (19-24) rafy/L POC Total CO2 21 L (24-31) mmol/L POC Base Excess -5.0 (-9-1.8) rafy/L ABG pH (Temp Correct) 7.385 (7.35-7.45) ABG pCO2 (Temp Corrct 33 L (35-46) mmHg POC ABG pO2 at Pt Temp 60 POC ABG O2 Sat 91.0 (90-95) % Yayo Test Pass O2 Delivery Device BIPAP POC O2 Rate 12 POC FiO2 45 % IPAP 12 POC Sodium 137 (135-144) mmol/L Sodium (136-145) mmol/L POC Potassium 3.7 (3.3-5.0) mmol/L Potassium (3.5-5.1) mmol/L Chloride (98-107) mmol/L Carbon Dioxide (21-32) mmol/L Anion Gap (3-11) BUN (7-18) mg/dl Creatinine (0.6-1.2) mg/dl Est Cr Clr Drug Dosing ml/min Est GFR ( Amer) Est GFR (Non-Af Amer) BUN/Creatinine Ratio (10-20) Glucose (70-99) mg/dl POC Glucose 116 H (70-99) mg/dl Lactate (0.4-2.0) mmol/L Calcium (8.5-10.1) mg/dl Phosphorus (2.5-4.9) mg/dl Magnesium (1.8-2.4) mg/dl Total Bilirubin (0.2-1) mg/dl AST (15-37) U/L ALT (12-78) U/L Alkaline Phosphatase (45-117) U/L Lactate Dehydrogenase (84-246) U/L Troponin I 5.220 H* (0-0.045) ng/ml NT-Pro-B Natriuret Pep (0-900) pg/ml Total Protein (6.4-8.2) gm/dl Albumin (3.4-5.0) gm/dl Globulin (2.5-4.0) gm/dl Albumin/Globulin Ratio (0.9-2) Procalcitonin (0-0.5) ng/ml TSH (0.300-4.500) uIu/ml Urine Blood (Negative) Urine RBC (Auto) (0-4) /hpf Nasal Screen MRSA (PCR) (Negative) Adenovirus (PCR) (NotDetected) B. pertussis DNA (PCR) (NotDetected) B.parapertussis DNA PCR (NotDetected) C. pneumoniae DNA (PCR) (NotDetected) Coronavirus OC43 (PCR) (NotDetected) Coronavirus HKU1 (PCR) (NotDetected) Coronavirus 229E (PCR) (NotDetected) COVID-19 PCR (Negative) Coronavirus NL63 (PCR) (NotDetected) Human Metapneumovir PCR (NotDetected) Influenza Type A (PCR) (NotDetected) Influenza Type B (PCR) (NotDetected) M. pneumoniae (PCR) (NotDetected) Parainfluenza 1 (PCR) (NotDetected) Parainfluenza 2 (PCR) (NotDetected) Parainfluenza 3 (PCR) (NotDetected) Parainfluenza 4 (PCR) (NotDetected) RSV (PCR) (NotDetected) Entero/Rhino (PCR) (NotDetected) Transfusion React Date Transfusion React Time Tx React Symptoms Reaction Clerical Check Lab Clerical Err Check React Component Return Volume Returned Pre-Trans Blood Type Pre-Trans Vis Hemolysis Pre-Trans COLE (Negative) Pre-Trans COLE IgG (Negative) Pre-Trans COLE Poly (Negative) Pre-Trans COLE C3b, C3d (Negative) Post-Trans Blood Type Post-Tx Visible Hemolys Post-Trans COLE (Negative) Post-Trans COLE IgG (Negative) Post-Trans COLE Poly (Negative) Post-Trans COLE C3b, C3d (Negative) Post-Trans Ur Hemoglobin Reaction Path Interpret Transfusion Serv Com 08/28/20 08/28/20 08/28/20 Range/Units 16:43 16:43 16:43 WBC 13.54 H (4.8-10.8) K/uL RBC 3.96 L (4.2-5.4) M/uL Hgb 10.9 L (12.0-16.0) g/dL POC Hgb (12.0-16.0) g/dl Hct 33.9 L (37-47) % POC Hct (37-47) % MCV 85.6 (80-100) fL MCH 27.5 (25-34) pg MCHC 32.2 (32-36) g/dL RDW Std Deviation 43.4 (36.4-46.3) fL RDW Coeff of Inge 13.7 (11.5-14.5) % Plt Count 376 (130-400) K/uL MPV 10.0 (7.4-10.4) fL Immature Gran % (Auto) 1.8 % Neut % (Auto) 95.2 % Lymph % (Auto) 1.0 % [place] % (Auto) 1.9 % Eos % (Auto) 0.0 % Baso % (Auto) 0.1 % Neut # (Auto) 12.88 H (1.4-6.5) K/uL Lymph # (Auto) 0.14 L (1.2-3.4) K/uL [place] # (Auto) 0.26 (0.11-0.59) K/uL Eos # (Auto) 0.00 (0-0.5) K/uL Baso # (Auto) 0.01 (0-0.2) K/uL Immature Gran # (Auto) 0.25 H (0.00-0.02) K/uL Absolute Nucleated RBC 0.03 H (0-0) K/uL Nucleated RBC % (auto) 0.2 % Sample Site POC pH (7.35-7.45) POC pCO2 (35-46) mmHg POC pO2 (80-95) mmHg POC HCO3 (19-24) rafy/L POC Total CO2 (24-31) mmol/L POC Base Excess (-9-1.8) rafy/L ABG pH (Temp Correct) (7.35-7.45) ABG pCO2 (Temp Corrct (35-46) mmHg POC ABG pO2 at Pt Temp POC ABG O2 Sat (90-95) % Yayo Test O2 Delivery Device POC O2 Rate POC FiO2 % IPAP POC Sodium (135-144) mmol/L Sodium 138 (136-145) mmol/L POC Potassium (3.3-5.0) mmol/L Potassium 3.7 (3.5-5.1) mmol/L Chloride 108 H (98-107) mmol/L Carbon Dioxide 21 (21-32) mmol/L Anion Gap 9.0 (3-11) BUN 27 H (7-18) mg/dl Creatinine 1.29 H D (0.6-1.2) mg/dl Est Cr Clr Drug Dosing 41.2 ml/min Est GFR ( Amer) 47.2 Est GFR (Non-Af Amer) 40.8 BUN/Creatinine Ratio 21.1 H (10-20) Glucose 95 (70-99) mg/dl POC Glucose (70-99) mg/dl Lactate (0.4-2.0) mmol/L Calcium 9.2 (8.5-10.1) mg/dl Phosphorus (2.5-4.9) mg/dl Magnesium (1.8-2.4) mg/dl Total Bilirubin 1.4 H D (0.2-1) mg/dl AST 72 H (15-37) U/L ALT 51 (12-78) U/L Alkaline Phosphatase 180 H (45-117) U/L Lactate Dehydrogenase (84-246) U/L Troponin I 5.150 H* (0-0.045) ng/ml NT-Pro-B Natriuret Pep 69473 H (0-900) pg/ml Total Protein 6.7 (6.4-8.2) gm/dl Albumin 2.3 L (3.4-5.0) gm/dl Globulin 4.4 H (2.5-4.0) gm/dl Albumin/Globulin Ratio 0.5 L (0.9-2) Procalcitonin (0-0.5) ng/ml TSH 3.900 (0.300-4.500) uIu/ml Urine Blood (Negative) Urine RBC (Auto) (0-4) /hpf Nasal Screen MRSA (PCR) (Negative) Adenovirus (PCR) (NotDetected) B. pertussis DNA (PCR) (NotDetected) B.parapertussis DNA PCR (NotDetected) C. pneumoniae DNA (PCR) (NotDetected) Coronavirus OC43 (PCR) (NotDetected) Coronavirus HKU1 (PCR) (NotDetected) Coronavirus 229E (PCR) (NotDetected) COVID-19 PCR (Negative) Coronavirus NL63 (PCR) (NotDetected) Human Metapneumovir PCR (NotDetected) Influenza Type A (PCR) (NotDetected) Influenza Type B (PCR) (NotDetected) M. pneumoniae (PCR) (NotDetected) Parainfluenza 1 (PCR) (NotDetected) Parainfluenza 2 (PCR) (NotDetected) Parainfluenza 3 (PCR) (NotDetected) Parainfluenza 4 (PCR) (NotDetected) RSV (PCR) (NotDetected) Entero/Rhino (PCR) (NotDetected) Transfusion React Date 08/28/20 Transfusion React Time 1600 Tx React Symptoms RESPIRATORY DISTRESS Reaction Clerical Check None Found Lab Clerical Err Check None Found React Component Return PCLRIRR Volume Returned 0 Pre-Trans Blood Type B POSITIVE Pre-Trans Vis Hemolysis No Pre-Trans COLE Negative (Negative) Pre-Trans COLE IgG Neg (Negative) Pre-Trans COLE Poly Neg (Negative) Pre-Trans COLE C3b, C3d Neg (Negative) Post-Trans Blood Type B POSITIVE Post-Tx Visible Hemolys No Post-Trans COLE Negative (Negative) Post-Trans COLE IgG Neg (Negative) Post-Trans COLE Poly Neg (Negative) Post-Trans COLE C3b, C3d Neg (Negative) Post-Trans Ur Hemoglobin Reaction Path Interpret Transfusion Serv Com 08/28/20 08/28/20 Range/Units 16:43 16:43 WBC (4.8-10.8) K/uL RBC (4.2-5.4) M/uL Hgb (12.0-16.0) g/dL POC Hgb (12.0-16.0) g/dl Hct (37-47) % POC Hct (37-47) % MCV (80-100) fL MCH (25-34) pg MCHC (32-36) g/dL RDW Std Deviation (36.4-46.3) fL RDW Coeff of Inge (11.5-14.5) % Plt Count (130-400) K/uL MPV (7.4-10.4) fL Immature Gran % (Auto) % Neut % (Auto) % Lymph % (Auto) % [place] % (Auto) % Eos % (Auto) % Baso % (Auto) % Neut # (Auto) (1.4-6.5) K/uL Lymph # (Auto) (1.2-3.4) K/uL [place] # (Auto) (0.11-0.59) K/uL Eos # (Auto) (0-0.5) K/uL Baso # (Auto) (0-0.2) K/uL Immature Gran # (Auto) (0.00-0.02) K/uL Absolute Nucleated RBC (0-0) K/uL Nucleated RBC % (auto) % Sample Site POC pH (7.35-7.45) POC pCO2 (35-46) mmHg POC pO2 (80-95) mmHg POC HCO3 (19-24) rafy/L POC Total CO2 (24-31) mmol/L POC Base Excess (-9-1.8) rafy/L ABG pH (Temp Correct) (7.35-7.45) ABG pCO2 (Temp Corrct (35-46) mmHg POC ABG pO2 at Pt Temp POC ABG O2 Sat (90-95) % Yayo Test O2 Delivery Device POC O2 Rate POC FiO2 % IPAP POC Sodium (135-144) mmol/L Sodium (136-145) mmol/L POC Potassium (3.3-5.0) mmol/L Potassium (3.5-5.1) mmol/L Chloride (98-107) mmol/L Carbon Dioxide (21-32) mmol/L Anion Gap (3-11) BUN (7-18) mg/dl Creatinine (0.6-1.2) mg/dl Est Cr Clr Drug Dosing ml/min Est GFR ( Amer) Est GFR (Non-Af Amer) BUN/Creatinine Ratio (10-20) Glucose (70-99) mg/dl POC Glucose (70-99) mg/dl Lactate 3.5 H* (0.4-2.0) mmol/L Calcium (8.5-10.1) mg/dl Phosphorus (2.5-4.9) mg/dl Magnesium (1.8-2.4) mg/dl Total Bilirubin (0.2-1) mg/dl AST (15-37) U/L ALT (12-78) U/L Alkaline Phosphatase (45-117) U/L Lactate Dehydrogenase 312 H (84-246) U/L Troponin I (0-0.045) ng/ml NT-Pro-B Natriuret Pep (0-900) pg/ml Total Protein (6.4-8.2) gm/dl Albumin (3.4-5.0) gm/dl Globulin (2.5-4.0) gm/dl Albumin/Globulin Ratio (0.9-2) Procalcitonin (0-0.5) ng/ml TSH (0.300-4.500) uIu/ml Urine Blood (Negative) Urine RBC (Auto) (0-4) /hpf Nasal Screen MRSA (PCR) (Negative) Adenovirus (PCR) (NotDetected) B. pertussis DNA (PCR) (NotDetected) B.parapertussis DNA PCR (NotDetected) C. pneumoniae DNA (PCR) (NotDetected) Coronavirus OC43 (PCR) (NotDetected) Coronavirus HKU1 (PCR) (NotDetected) Coronavirus 229E (PCR) (NotDetected) COVID-19 PCR (Negative) Coronavirus NL63 (PCR) (NotDetected) Human Metapneumovir PCR (NotDetected) Influenza Type A (PCR) (NotDetected) Influenza Type B (PCR) (NotDetected) M. pneumoniae (PCR) (NotDetected) Parainfluenza 1 (PCR) (NotDetected) Parainfluenza 2 (PCR) (NotDetected) Parainfluenza 3 (PCR) (NotDetected) Parainfluenza 4 (PCR) (NotDetected) RSV (PCR) (NotDetected) Entero/Rhino (PCR) (NotDetected) Transfusion React Date Transfusion React Time Tx React Symptoms Reaction Clerical Check Lab Clerical Err Check React Component Return Volume Returned Pre-Trans Blood Type Pre-Trans Vis Hemolysis Pre-Trans COLE (Negative) Pre-Trans COLE IgG (Negative) Pre-Trans COLE Poly (Negative) Pre-Trans COLE C3b, C3d (Negative) Post-Trans Blood Type Post-Tx Visible Hemolys Post-Trans COLE (Negative) Post-Trans CLOE IgG (Negative) Post-Trans COLE Poly (Negative) Post-Trans COLE C3b, C3d (Negative) Post-Trans Ur Hemoglobin Reaction Path Interpret Transfusion Serv Com PG Care Time/CCT Total # of Minutes Spent Total Time Spent with Patient: Total time spent is greater than 50% in coordination of care (as documented) at patient's floor/unit and/or counseling patient: Coding Level of Care Code 81611 Subseq Hosp Care Lvl 3 Diagnoses Septicemia A41.9 Septic shock A41.9; R65.21 Acute hypoxemic respiratory failure J96.01 Acute encephalopathy G93.40 Elevated troponin R77.8 Fever R50.9 Presence of intrathecal pump Z96.89 Persistent insomnia G47.00 Hypokalemia E87.6 Constipation K59.00 Peripheral edema R60.9 Gastroesophageal reflux disease K21.9 Depression F32.9 Chronic pain syndrome G89.4 Hyperlipidemia E78.5 Hyperlipidemia type: unspecified Hypertension I10 Hypertension type: essential hypertension 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 Follicular lymphoma type: unspecified follicular type Lymphoma site: unspecified region Aortic stenosis I35.0 Anxiety disorder, unspecified F41.1 Anxiety disorder type: generalized anxiety disorder DVT prophylaxis Z29.9 (1) Hyperlipidemia Hyperlipidemia type: unspecified Qualified Code(s): E78.5 - Hyperlipidemia, unspecified (2) Hypertension Hypertension type: essential hypertension Qualified Code(s): I10 - Essential (primary) hypertension (3) Follicular lymphoma Follicular lymphoma type: unspecified follicular type Lymphoma site: unspecified region Qualified Code(s): C82.90 - Follicular lymphoma, unspec ified, unspecified site (4) Anxiety disorder, unspecified Anxiety disorder type: generalized anxiety disorder Qualified Code(s): F41.1 - Generalized anxiety disorder
[2020-08-29] MEDS ORDERED: HYDROMORPHONE IV PRN ×2 (19:15→19:30)
[2020-08-29] MEDS ORDERED: HYDROmorphone PCA 30 MG/30 ML IV SCH (19:15)
[2020-08-29] MEDS ORDERED: NALOXONE HCL 0.4 MG/1 ML VIAL/CARP IV PRN (19:43)
[2020-08-29] MEDS ORDERED: SODIUM CHLORIDE 0.9% 1000ML 1,000 ML IV SCH (19:45)
[2020-08-30] MEDS: traZODone HCL 50 MG TAB PO PRN ×2 (00:25→22:40)
[2020-08-30 04:58] LABS: Hematocrit (blood only) 29.3 % (37-47); Hemoglobin 9.7 g/dL (12.0-16.0); Immature Granulocytes # (auto) 0.05 K/uL (0.00-0.02); Immature Granulocytes % (auto) 0.5 %; Lymphocytes # (auto) 0.53 K/uL (1.2-3.4); Lymphocytes % (auto) 5.2 %; Mean Corpuscular Hemoglobin 27.6 pg (25-34); Mean Corpuscular Hgb Conc 33.1 g/dL (32-36); Mean Corpuscular Volume 83.5 fL (80-100); Mean Platelet Volume 10.5 fL (7.4-10.4); Monocytes # (auto) 0.65 K/uL (0.11-0.59); Monocytes % (auto) 6.4 %; Neutrophils % (auto) 87.9 %; Platelet Count 305 K/uL (130-400); RDW Coefficient of Variation 13.9 % (11.5-14.5); RDW Standard Deviation 42.5 fL (36.4-46.3); Red Blood Count 3.51 M/uL (4.2-5.4); White Blood Count 10.23 K/uL (4.8-10.8)
[2020-08-30 05:53] LABS: BUN Creatinine Ratio 39.6 (10-20); Calcium 8.8 mg/dl (8.5-10.1); Creatinine Clr Calc Pharmacy 65.6 ml/min; Est GFR (African American) 82.9; Est GFR (Non-African American) 71.5; Magnesium 2.2 mg/dl (1.8-2.4); Phosphorus 2.6 mg/dl (2.5-4.9); Potassium 4.3 mmol/L (3.5-5.1)
[2020-08-30] MEDS: PHENYLEPHRINE HCL 20 MG in DEXTROSE 5% 500 ML IV SCH ×2 (07:17→07:18)
[2020-08-30] MEDS: predniSONE 20 MG TAB PO SCH (08:10)
[2020-08-30] MEDS: ASPIRIN 81 MG ECTAB PO SCH (08:10)
[2020-08-30] MEDS: PANTOprazole 40 MG TAB PO SCH (08:10)
[2020-08-30] MEDS: cefTRIAXone SODIUM 2,000 MG in DEXTROSE 5% 50 ML IV SCH (08:10)
[2020-08-30] MEDS: HEPARIN SOD 5,000 UNIT/0.5 ML VIAL SQ SCH ×2 (08:11→21:31)
[2020-08-30] MEDS: POLYETHYLENE (MIRALAX) 17 GM PACK PO SCH (08:11)
[2020-08-30] MEDS: DOCUSATE SODIUM/SENNA 50/8.6MG TAB PO SCH (08:11)
--- NOTE | 2020-08-30 08:48 | Critical Care Progress Note ---
Date of Service August 30, 2020 Assessment & Plan (1) Acute encephalopathy: Patient was discussed in multidisciplinary rounds this morning. Patient is doing better today. Patient is off pressors and sedation since yesterday morning. I have started her on 40 mg twice daily of p.o. Lasix. Encephalopathy has resolved. She is lethargic. Continue Rocephin for total 2 weeks including the antibiotic she received on presentation for her E. coli bacteremia. Repeat blood cultures demonstrate clearance of E. coli. Continue prednisone for possible ILD/COPD flare. This can be continued for total 7 days. 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 She may have Sjogren's/LIP related to her follicular lymphoma. Pain management team is following the patient for her pain pump. She is currently on a Dilaudid [employer] without a basal rate. Continue baclofen so that she does not go into withdrawal. She did have an echocardiogram that demonstrated moderate mitral regurg and moderate valvular aortic stenosis/aortic regurgitation. 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 Her forward flow is quite compromised. She also has evidence of an NSTEMI with an elevated troponin. No wall motion abnormalities noted on the echo. Started her on aspirin. Cardiology is following. Can transfer to the floor today. This was discussed with the hospitalist. (2) Gram-negative bacteremia: (3) Moderate aortic stenosis: (4) Mild aortic regurgitation: (5) Moderate mitral regurgitation: (6) Acute hypoxemic respiratory failure: (7) Pulmonary edema: (8) NSTEMI (non-ST elevated myocardial infarction): (9) Acute hypercapnic respiratory failure: Admission and Anticipated Discharge Date Admission Date: August 26, 2020 Subjective Patient continues to do very well today. No significant overnight events. She notes that her breathing is easier today. She denies any chest pain. Review of Systems Review of Systems: All systems reviewed & are unremarkable except as noted in HPI & below Physical Exam Constitutional: WD/WN, vitals as above Eyes: PERRL, conjunctivae normal, anicteric sclerae ENMT: external ear and nose normal, oropharynx normal Neck: normal visual inspection Respiratory: Auscultation: + crackles Cardiovascular: Rate/Rhythm: + tachycardic Heart Sounds: normal S1, normal S2 and + murmur Extremities: + edema Gastrointestinal (Abdomen): normal bowel sounds, soft, nontender, no hepatosplenomegaly Musculoskeletal: no cyanosis or clubbing, extremities motor strength 5/5 Skin: no rashes, warm and dry Neurologic: PERRL, EOMI, accommodation nl, no face palsy, no dysarthria Psychiatric: A+Ox3, euthymic affect Results & Data Results & Data ([facility]) Vital Signs (Past 12 Hours) Vital Signs Temp Pulse Resp BP Pulse Ox 08/30/20 07:19 74 08/30/20 06:00 71 15 92/59 L 95 08/30/20 05:30 75 14 96 08/30/20 05:00 75 13 107/66 95 08/30/20 04:30 67 14 95 08/30/20 04:00 97.7 F 74 16 104/69 97 08/30/20 03:30 74 20 96 08/30/20 03:00 73 13 106/68 95 08/30/20 02:30 71 16 94 08/30/20 02:00 77 18 87/64 L 93 08/30/20 01:30 80 13 94 08/30/20 01:00 80 14 107/79 94 08/30/20 00:30 80 15 95 08/30/20 00:00 98.1 F 79 17 112/84 97 08/29/20 23:30 78 20 98 08/29/20 23:00 81 14 108/75 94 08/29/20 22:30 83 15 95 08/29/20 22:00 84 15 129/75 96 08/29/20 21:30 83 17 96 08/29/20 21:00 88 18 128/82 96 I reviewed vital signs, labs and imaging Coding Level of Care Code 11525 Subseq Hosp Care Lvl 3 Diagnoses Acute encephalopathy G93.40 Gram-negative bacteremia R78.81 Moderate aortic stenosis I35.0 Mild aortic regurgitation I35.1 Moderate mitral regurgitation I34.0 Acute hypoxemic respiratory failure J96.01 Pulmonary edema J81.1 NSTEMI (non-ST elevated myocardial infarction) I21.4 Acute hypercapnic respiratory failure J96.02
[2020-08-30] MEDS ORDERED: ACETAMINOPHEN 500 MG TAB PO PRN (08:55)
--- NOTE | 2020-08-30 09:56 | Pain Management Progress Note ---
Date of Service August 30, 2020 Assessment & Plan (1) Sepsis: Sepsis acute organ dysfunction status: with acute organ dysfunction Sepsis type: sepsis due to unspecified organism Severe sepsis acute organ dysfunction type: unspecified Severe sepsis shock status: without septic shock Qualified Code(s): A41.9 - Sepsis, unspecified organism; R65.20 - Severe sepsis without septic shock Present on Admission?: Yes (2) Bacteremia due to Gram-negative bacteria: Present on Admission?: Yes (3) Presence of intrathecal pump: Present on Admission?: Yes (4) Post laminectomy syndrome: * Intrathecal pump was interrogated at today's visit. Her PTM was discontinued and her low reservoir alarm was adjusted from 2 mL to 1 mL. This was able to lengthen her refill interval until late September. We will plan for refilling of her intrathecal pump on 10/03/2020. Her need for IV antibiotics prior to her intrathecal pump refill will be determined the day of her visit. Refer to pump print out in EMR for details. Present on Admission?: Yes Admission and Anticipated Discharge Date Admission Date: August 26, 2020 Subjective Ms. Henry is known to the pain service due to ongoing chronic utilization of intrathecal hydromorphone pump. Patient was tentatively planned for pump revision/replacement on 09/03/2020 which has been canceled due to her recent diagnosis of sepsis with admission. Due to her recent diagnosis of sepsis and ongoing antibiotic usage we will lengthen her refill interval as long as possible. She reports minimal pain at this time as she has been bedridden over the past week during this admission with minimal activity. She is feeling somewhat better today with regards to her sepsis. She is more awake and interactive. Patient has no further constitutional complaints. Plan of care discussed with Dr. Amy Erickson. Physical Exam Physical Exam: General: Patient sitting up upon in the room in no acute distress. Speech and thought process appropriate. Cognition was intact. Alert and oriented x3. Abdomen: Soft and nondistended. Intrathecal pump located in the left lower quadrant without evidence of edema, erythema or skin breakdown.
[2020-08-30] MEDS: DULoxetine HCL 60 MG CAP PO SCH (09:57)
[2020-08-30] MEDS: FERROUS SULFATE 325 MG TAB PO SCH (09:58)
[2020-08-30] MEDS: FEXOFENADINE HCL 180 MG TAB PO SCH (09:58)
[2020-08-30] MEDS: FUROSEMIDE 40 MG TAB PO SCH ×2 (09:58→17:06)
--- NOTE | 2020-08-30 10:57 | Cardiology Progress Note ---
Date of Service August 30, 2020 Assessment & Plan (1) Bacteremia due to Gram-negative bacteria: Patient continues to improve clinically, given the low likelihood that her bacteremia represents endocarditis could base duration of antibiotics upon clinical response as well as usual management of presumed urosepsis. (2) Moderate aortic stenosis: (3) Moderate mitral regurgitation: (4) Septic shock: Resolved. No ongoing cardiac issues at this point, therefore will sign off. Please contact if any change in clinical status or new cardiac symptoms. Admission and Anticipated Discharge Date Admission Date: August 26, 2020 Subjective Uneventful night. Continues to improve clinically, no longer hypotensive, no further fever. She feels fatigued but had no other complaints. No dyspnea or chest pain. No palpitations. Physical Exam Physical Exam: Elderly white female appears comfortable. Afebrile overnight. BP 124/83, pulse 100 and regular, respirations 19. Skin: few ecchymoses, no generalized lesions. HEENT: unremarkable. Neck: Jugular venous pulse at the clavicle at 90 degrees, Lungs: No wheezing, mildly decreased breath sounds, clear. Cardiac: Regular rhythm with 3/6 crescendo decrescendo systolic ejection murmur right upper sternal border radiating to the carotids, 3/6 apical holosystolic murmur radiating to the axilla. No diastolic murmur. Aortic closure sound diminished. Abdomen benign. Extremities: no edema, pulses brisk. Neurologic: mildly blunted affect, nonfocal. Results & Data ([facility]) Laboratory Results White count down to 10.23, hemoglobin 9.7, normal platelet count. Normal electrolytes, BUN 32, creatinine 0.81. PG Care Time/CCT Total # of Minutes Spent Total Time Spent with Patient: Total time spent is greater than 50% in coordination of care (as documented) at patient's floor/unit and/or counseling patient: Coding Level of Care Code 30887 Subseq Hosp Care Lvl 3 Diagnoses Bacteremia due to Gram-negative bacteria R78.81 Moderate aortic stenosis I35.0 Moderate mitral regurgitation I34.0 Septic shock A41.9; R65.21
[2020-08-30] MEDS: LIDOCAINE 5% 1 PATCH TD SCH (13:44)
--- NOTE | 2020-08-30 13:57 | Hospitalist Progress Note ---
Date of Service August 30, 2020 Assessment & Plan (1) Septicemia: Ms. Henry is a 75yo female with a PMHx significant for follicular lymphoma, aortic stenosis, chronic back pain and post-laminectomy syndrome with placement of an intrathecal pump, anxiety, GERD, HLD, HTN, insomnia and depres jacy who presents with a persistent fever x2 weeks and intractable back pain after a fall at home 4 days ago. Has been treated for UTIs with 2 rounds of Macrobid in the last 2 weeks. Fever-resolved, growing pansensitive E. coli in blood cultures-most likely secondary to previous UTI With acute metabolic encephalopathy upon presentation which is now resolved Back pain likely secondary to developing pyelonephritis versus muscle spasm from recent fall CT abdomen/pelvis performed on the evening of admission shows no bowel obstruction or bowel wall thickening, nonspecific enteritis, some pathologic adenopathy improved from previous, emphysema, unchanged aneurysmal dilation of the ascending thoracic aorta 4.6 cm, status post cholecystectomy and with normal liver. She did also have prominence of the bilateral renal pelvis ease without abril hydronephrosis Urinalysis here with epithelial cells contaminating, 5-10 WBCs and 1+ leukocyte esterase, negative for bacteria, but also recently completed another course of Macrobid which could be making her have a false negative urinalysis A urine culture was not sent upon admission -CTA chest with no evidence of pneumonia (notes 4.5cm aortic aneurysm, 8mm nodule in CAREY, axillary lymphadenopathy) but does have cystic changes as per pulmonology -COVID NEGATIVE as of 08/08/2020-negative again on 08/28 [place] viral respiratory panel negative on 08/28 -Temp of 38.2 on admission and now afebrile, leukocytosis now resolved Procalcitonin of 0.57 on admission which is now up to 65-follow in the morning LFTs mildly elevated but no abdominal pain and no findings to explain this on CT from admission-likely secondary to sepsis versus medication side effect Echocardiogram without vegetation and with E. coli bacteremia-do not suspect endocarditis -Repeat blood cultures on 08/27 again with E. coli -Repeat blood cultures on 08/28-no growth to date -Discontinued meropenem and started ceftriaxone on 08/29-we will continue and convert to p.o. antibiotics to finish out a total 14-day course -With septic shock as below which is now resolved -Follow CBC, CMP, procalcitonin in the morning (2) Septic shock: With hypotension with blood pressures in the 60s systolic overnight on 08/27-08/28 requiring multiple boluses of IV fluids PRBC transfusion was given for hemoglobin less than 10 in the setting of NSTEMI Blood pressures remained borderline low in the 70s to 80s systolic at times Transferred to ICU and placed on Jovanni-Synephrine on the night of 08/28-has now been weaned off and blood pressures are much improved Appreciate cribber consultation Continue treat with antibiotics as below Now receiving IV/p.o. Lasix for volume overload (3) Acute hypoxemic respiratory failure: Had been requiring oxygen upon admission and then acutely worsened with significant respiratory distress after volume resuscitation and PRBC transfusion on 08/28 for profound hypotension Chest x-ray with worsening pulmonary edema on 08/28 and now much improved on imaging 08/29 Troponin trended downward to 4 and ECG without ischemic changes ABG 7.38/ on BiPAP 45% FiO2, now improved to 7.4 on 35% FiO2 Placed on BiPAP, given IV and p.o. Lasix and now much improved-now weaned to 2 L nasal cannula TRALI labs sent by cribber-pathology interpretation is TACO Transferred to ICU on 08/28-now stable for downgrade to PCU Also with some chronic appearing cystic changes on chest CT-pulmonology questions if has Sjogren's/LIP associated with her lymphoma-needs outpatient follow-up -Continue prednisone 40 mg daily x7 days-last day will be 09/04 Follow chest x-ray (4) Acute encephalopathy: Acute metabolic encephalopathy as above, secondary to septic shock, respiratory failure-now completely resolved Was on a Precedex drip overnight 08/28 which helped her maintain the BiPAP (5) Elevated troponin: Type II MN due to demand ischemia -Trops elevated to 0.643 on admission and has now trended up to 7 and back down to 4 With moderate aortic stenosis -EKG with noted sinus tach, absence of chest pain Appreciate cardiology consultation-discussed with cardiology-most likely myocardial demand ischemia Echocardiogram here without wall motion abnormalities and with preserved EF, moderate aortic stenosis Repeat ECG with improvement in previous changes in anterior leads Transfused 1 unit PRBCs on 08/28 to keep hemoglobin closer to 10 and then had TACO as noted above (6) Fever: Secondary to septicemia as above-now resolved Tylenol as needed (7) Presence of intrathecal pump: Seen by pain management here, she will have a delay in the replacement of the battery of her intrathecal pump until 2 weeks after finished with antibiotics for septicemia Has hydromorphone, bupivacaine, and baclofen in her pump was interrogated today and has enough battery life to last till least November or December Discussed her care with her pain management physician, Dr. Erickson, who said that the patient is nowhere near running out of her pump-her battery would be good to at least November Discussed care again with Abelardo Marquez PA-C with pain management-recommends discontinuing MORNING NANNY pump started last evening and converting to hydrocodone p.o. as needed (8) Persistent insomnia: Continue home trazodone (9) Hypokalemia: Resolved after replacement -Continue to hold home HCTZ Follow BMP and magnesium in the morning (10) Constipation: Now resolved -Continue bowel regimen (11) Peripheral edema: Secondary to lymphedema most likely from lymphoma in groin Doppler of lower extremities on admission was negative for DVT (12) Gastroesophageal reflux disease: -continue PPI (13) Depression: Continue home Cymbalta (14) Chronic pain syndrome: Intractable Back Pain/Lumbar post Laminectomy Syndrome-with acute on chronic pain secondary to recent fall CT abdomen/pelvis shows no acute fractures of the lumbar spine -Pt with intrathecal pump dispensing hydromorphone, bupivacaine, baclofen. Due for replacement on 09/03/2020. -Continue home Cymbalta, gabapentin 100mg qhs Holding home nabumetone 750mg BID Appreciate pain management consultation-discontinue MORNING NANNY pump -PT/OT evaluations completed and recommend inpatient rehab -given fall at home (pt lives alone), consult to CM placed for discharge planning (15) Hyperlipidemia: On Krill oil at home-holding while inpatient (16) Hypertension: -hypotensive as above which is now improved -Continue to hold home HCTZ (17) Follicular lymphoma: -due for port placement after intrathecal pump replaced which will now be delayed due to septicemia -will start chemotherapy once port placed Consult her fire marshal/oncologist is appreciated-nothing further to do at this point in time until recovered from acute illness (18) Aortic stenosis: Moderate as noted on echocardiogram Avoid extremes of volume and hypotension (19) Anxiety disorder, unspecified: Insomnia/Depression/Anxiety -Holding home melatonin, continue trazodone qhs as needed -Have since restarted cymbalta 120mg daily, gabapentin 100mg qhs Was on Precedex drip overnight in the ICU which is now weaned off (20) DVT prophylaxis: Heparin SQ Disposition-stable for downgrade out of ICU to PCU Admission and Anticipated Discharge Date Admission Date: August 26, 2020 Subjective Patient was placed on a MORNING NANNY pump last night and has used about 1.6 mg in the last 12 hours. This was for lower back pain which she reports is worse than previous since the recent fall. I discussed her care with Abelardo Marquez of pain management and he would like me to discontinue the MORNING NANNY pump and give hydrocodone by mouth as needed instead. Otherwise she is stable with her blood pressures off vasopressors, remains on 2 L nasal cannula with good oxygenation. Is eating and drinking. Denies abdominal pains. Denies chest pain or shortness of breath. Telemetry with normal sinus rhythm and 1 burst of atrial tachycardia. Review of Systems Review of Systems: All systems reviewed & are unremarkable except as noted in HPI & below Physical Exam Constitutional: WD/WN, vitals as above no acute distress Eyes: + anicteric sclerae Neck: trachea midline, no thyromegaly Respiratory: normal respiratory effort, lungs clear to auscultation Cardiovascular: Rate/Rhythm: regular rate and regular rhythm Heart Sounds: + murmur (2/6 KENDRA at RUSB) Extremities: + edema (Trace pitting edema left greater than right, chronic from previous) Chest (Breasts): Chest: normal inspection of chest Gastrointestinal (Abdomen): normal bowel sounds, soft, nontender, no hepatosplenomegaly Musculoskeletal: Extremities: extremities normal to inspection; no cyanosis and no clubbing Skin: no rashes, warm and dry Neurologic: moves all extremities and awake; no focal motor deficits Psychiatric: A+Ox3, euthymic affect Orientation: cooperative Genitourinary: + abnormal external appearance (Noble catheter in place draining clear yellow urine) Results & Data Results & Data ([facility]) Vital Signs (Past 12 Hours) Vital Signs Temp Pulse Resp BP Pulse Ox 08/30/20 09:41 104 H 19 124/83 94 08/30/20 08:41 110 H 23 119/68 89 L 08/30/20 07:41 36.5 C 88 17 119/81 100 08/30/20 07:19 74 08/30/20 06:00 71 15 92/59 L 95 08/30/20 05:30 75 14 96 08/30/20 05:00 75 13 107/66 95 08/30/20 04:30 67 14 95 08/30/20 04:00 36.5 C 74 16 104/69 97 08/30/20 03:30 74 20 96 08/30/20 03:00 73 13 106/68 95 08/30/20 02:30 71 16 94 08/30/20 02:00 77 18 87/64 L 93 Laboratory Results 08/30/20 08/30/20 Range/Units 04:34 04:34 WBC 10.23 (4.8-10.8) K/uL RBC 3.51 L (4.2-5.4) M/uL Hgb 9.7 L (12.0-16.0) g/dL Hct 29.3 L (37-47) % MCV 83.5 (80-100) fL MCH 27.6 (25-34) pg MCHC 33.1 (32-36) g/dL RDW Std Deviation 42.5 (36.4-46.3) fL RDW Coeff of Inge 13.9 (11.5-14.5) % Plt Count 305 (130-400) K/uL MPV 10.5 H (7.4-10.4) fL Immature Gran % (Auto) 0.5 % Neut % (Auto) 87.9 % Lymph % (Auto) 5.2 % Baxter % (Auto) 6.4 % Eos % (Auto) 0.0 % Baso % (Auto) 0.0 % Neut # (Auto) 9.00 H (1.4-6.5) K/uL Lymph # (Auto) 0.53 L (1.2-3.4) K/uL Baxter # (Auto) 0.65 H (0.11-0.59) K/uL Eos # (Auto) 0.00 (0-0.5) K/uL Baso # (Auto) 0.00 (0-0.2) K/uL Immature Gran # (Auto) 0.05 H (0.00-0.02) K/uL Sodium 137 (136-145) mmol/L Potassium 4.3 D (3.5-5.1) mmol/L Chloride 106 (98-107) mmol/L Carbon Dioxide 27 (21-32) mmol/L Anion Gap 4.0 (3-11) BUN 32 H (7-18) mg/dl Creatinine 0.81 (0.6-1.2) mg/dl Est Cr Clr Drug Dosing 65.6 ml/min Est GFR ( Amer) 82.9 Est GFR (Non-Af Amer) 71.5 BUN/Creatinine Ratio 39.6 H (10-20) Glucose 106 H (70-99) mg/dl Calcium 8.8 (8.5-10.1) mg/dl Phosphorus 2.6 (2.5-4.9) mg/dl Magnesium 2.2 (1.8-2.4) mg/dl PG Care Time/CCT Total # of Minutes Spent Total Time Spent with Patient: Total time spent is greater than 50% in coordination of care (as documented) at patient's floor/unit and/or counseling patient: Coding Level of Care Code 79171 Subseq Hosp Care Lvl 3 Diagnoses Septicemia A41.9 Septic shock A41.9; R65.21 Acute hypoxemic respiratory failure J96.01 Acute encephalopathy G93.40 Elevated troponin R77.8 Fever R50.9 Presence of intrathecal pump Z96.89 Persistent insomnia G47.00 Hypokalemia E87.6 Constipation K59.00 Peripheral edema R60.9 Gastroesophageal reflux disease K21.9 Depression F32.9 Chronic pain syndrome G89.4 Hyperlipidemia E78.5 Hyperlipidemia type: unspecified Hypertension I10 Hypertension type: essential hypertension 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 Follicular lymphoma type: unspecified follicular type Lymphoma site: unspecified region Aortic stenosis I35.0 Anxiety disorder, unspecified F41.1 Anxiety disorder type: generalized anxiety disorder DVT prophylaxis Z29.9 (1) Anxiety disorder, unspecified Anxiety disorder type: generalized anxiety disorder Qualified Code(s): F41.1 - Generalized anxiety disorder (2) Hyperlipidemia Hyperlipidemia type: unspecified Qualified Code(s): E78.5 - Hyperlipidemia, unspecified (3) Follicular lymphoma Follicular lymphoma type: unspecified follicular type Lymphoma site: unspecified region Qualified Code(s): C82.90 - Follicular lymphoma, unspecified, unspecified site (4) Hypertension Hypertension type: essential hypertension Qualified Code(s): I10 - Essential (primary) hypertension
--- NOTE | 2020-08-30 14:39 | Progress Notes ---
DATE: 08/30/2020 DIAGNOSES: 1. Metabolic encephalopathy. 2. Escherichia coli bacteremia. 3. Stage III follicular non-Hodgkin lymphoma. 4. Moderate aortic stenosis. 5. Mild aortic valve regurgitation. 6. Pulmonary edema. SUBJECTIVE: Lizeth was seen and examined at bedside this afternoon. Nursing provided a pretty nice summary. She is getting better. Pressors are being weaned down. She is on nasal cannula supplemental oxygen. Reviewed her CTA and CAT scan of the abdomen and pelvis, both of which show her lymph nodes have actually regressed in size, which is not uncommon for patients who suffer from follicular lymphoma. She has not received any form of cytotoxic chemotherapy despite the radiologist's impression. Nonetheless, she is starting to turn the corner. I suspect over the next couple of days be discharged for rehabilitation. I initially was compelled to push towards treatment. However, now I am having second thoughts as her lymph node activity is not as aggressive as I originally believed. Nonetheless, we will plan to reconvene with her as an outpatient. OBJECTIVE: GENERAL: A very pleasant 75-year-old female in no acute distress. VITAL SIGNS: Temperature 36.5, pulse 104, respiratory rate 19, blood pressure 124/83. SKIN: Again without rash or lesion. HEENT: Oral mucosa without erythema or ulceration. HEART: 2/6 holosystolic murmur, otherwise regular. LUNGS: Clear to auscultation bilaterally. ABDOMEN: Soft, nontender, nondistended. EXTREMITIES: No clubbing, cyanosis or edema. NEUROLOGIC: She is grossly intact. LABORATORY DATA: WBCs 10,230, hemoglobin 9.7, platelet count 305,000. Sodium 137, potassium 4.3, chloride 106, carbon dioxide 27, creatinine 0.81, BUN 32. RADIOGRAPHIC DATA: Chest x-ray done yesterday, persistent but improving bilateral pulmonary opacities. IMPRESSION: 1. Escherichia coli bacteremia. 2. Sepsis/septic shock. 3. Acute hypoxic respiratory failure. 4. Acute encephalopathy. 5. Stage III follicular non-Hodgkin lymphoma. PLAN: It was my pleasure to visit with Lizeth again at bedside. I was very happy to see she does seem to be improving clinically. I had initially planned on pursuing further scanning and possible induction treatment. However, upon review of her most recent CTA of the chest and CT of the abdomen and pelvis her lymph nodes appear to be "waxing and waning," which is commonly seen in indolent lymphomas. At this juncture I am less inclined to push for treatment. She obviously needs to stabilize medically; however, we will plan to reconvene within a month or so post-discharge. We will continue to periodically follow her during hospitalization.
[2020-08-30] MEDS: HYDROCODONE/ACETAMOPHEN 5/325MG TAB PO PRN ×2 (15:30→21:30)
[2020-08-30] MEDS: AZITHROMYCIN 500 MG in DEXTROSE 5% 250 ML IV SCH (17:03)
[2020-08-30] MEDS: GABAPENTIN 100 MG CAP PO SCH (21:31)
[2020-08-31 04:58] LABS: Eosinophils # (auto) 0.02 K/uL (0-0.5); Eosinophils % (auto) 0.2 %; Hematocrit (blood only) 29.1 % (37-47); Hemoglobin 9.3 g/dL (12.0-16.0); Immature Granulocytes # (auto) 0.06 K/uL (0.00-0.02); Immature Granulocytes % (auto) 0.7 %; Lymphocytes # (auto) 0.75 K/uL (1.2-3.4); Lymphocytes % (auto) 8.2 %; Mean Corpuscular Hemoglobin 26.8 pg (25-34); Mean Corpuscular Volume 83.9 fL (80-100); Mean Platelet Volume 10.8 fL (7.4-10.4); Monocytes # (auto) 1.04 K/uL (0.11-0.59); Monocytes % (auto) 11.3 %; Neutrophils # (auto) 7.33 K/uL (1.4-6.5); Neutrophils % (auto) 79.6 %; Platelet Count 258 K/uL (130-400); RDW Coefficient of Variation 14.1 % (11.5-14.5); RDW Standard Deviation 43.2 fL (36.4-46.3); Red Blood Count 3.47 M/uL (4.2-5.4)
[2020-08-31 05:17] LABS: BUN Creatinine Ratio 40.1 (10-20); Calcium 8.7 mg/dl (8.5-10.1); Creatinine Clr Calc Pharmacy 68.1 ml/min; Est GFR (African American) 86.8; Est GFR (Non-African American) 74.9; Magnesium 1.8 mg/dl (1.8-2.4); Potassium 3.9 mmol/L (3.5-5.1)
[2020-08-31 05:22] LABS: Bilirubin Direct 0.2 mg/dl (0-0.2); Bilirubin,Total 0.5 mg/dl (0.2-1); Phosphorus 2.9 mg/dl (2.5-4.9); Total Protein 5.5 gm/dl (6.4-8.2)
[2020-08-31] MEDS: ASPIRIN 81 MG ECTAB PO SCH (07:54)
[2020-08-31] MEDS: HYDROCODONE/ACETAMOPHEN 5/325MG TAB PO PRN ×2 (07:54→14:52)
[2020-08-31] MEDS: FEXOFENADINE HCL 180 MG TAB PO SCH (07:54)
[2020-08-31] MEDS: predniSONE 20 MG TAB PO SCH (07:54)
[2020-08-31] MEDS: PANTOprazole 40 MG TAB PO SCH (07:55)
[2020-08-31] MEDS: FERROUS SULFATE 325 MG TAB PO SCH (07:55)
[2020-08-31] MEDS: DULoxetine HCL 60 MG CAP PO SCH (07:55)
[2020-08-31] MEDS: LIDOCAINE 5% 1 PATCH TD SCH (07:55)
[2020-08-31] MEDS: FUROSEMIDE 40 MG TAB PO SCH (07:55)
[2020-08-31] MEDS: DOCUSATE SODIUM/SENNA 50/8.6MG TAB PO SCH (07:56)
[2020-08-31] MEDS: HEPARIN SOD 5,000 UNIT/0.5 ML VIAL SQ SCH (07:56)
[2020-08-31] MEDS: POLYETHYLENE (MIRALAX) 17 GM PACK PO SCH (07:56)
[2020-08-31] MEDS: cefTRIAXone SODIUM 2,000 MG in DEXTROSE 5% 50 ML IV SCH (07:57)
[2020-08-31 10:40] LABS: iSTAT Arterial Blood Gas pCO2 51 mmHg (35-46); iSTAT Arterial Blood Gas pH 7.24 (7.35-7.45); iSTAT Arterial Blood Gas pO2 191 mmHg (80-95)
[2020-08-31 10:41] LABS: iSTAT Arterial Blood Gas HCO3 21 meg/L (19-24); iSTAT Carbon Dioxide 23 mmol/L (24-31); iSTAT Sample Type Arterial
[2020-08-31] MEDS ORDERED: LIDOCAINE 5% 1 PATCH TD SCH (11:45)
--- NOTE | 2020-08-31 12:16 | Discharge Summary ---
Date of Service August 31, 2020 Admission HPI Per Admitting Provider Ms. Henry is a 75yo female with a PMHx significant for follicular lymphoma, aortic stenosis, chronic back pain and post-laminectomy syndrome with placement of an intrathecal pump, anxiety, GERD, HLD, HTN, insomnia and depression who presents with a persistent fever and intractable back pain after a fall at home 4 days ago. Hx was limited as pt was in severe pain during the interview, unable to lay down with daughter at bedside. Daughter states the pt lives alone and fell about 4 days ago. Daughter has been away for the last few days and upon returning today and checking on her mother, noted that she was more lethargic at home and sleeping more, definitely not herself. So she brought her in for further evaluation. States that a baseline, the pt uses a walker to get around. PMHx: As below Fam Hx : As below SH: Nonsmoker, no alcohol use, no recreational drug use. Lives alone, uses walker for ambulation at baseline. Daughter checks in her periodically. Principal Diagnosis E. coli septicemia, septic shock, acute respiratory failure with hypoxia Discharge Exam Constitutional WD/WN, vitals as above no acute distress Eyes + anicteric sclerae Neck trachea midline, no thyromegaly Respiratory normal respiratory effort, lungs clear to auscultation Cardiovascular Rate/Rhythm: regular rate and regular rhythm Heart Sounds: + murmur (2/6 KENDRA at RUSB) Extremities: + edema (Trace pitting edema left greater than right, significantly improved from previous) Chest (Breasts) Chest: normal inspection of chest Gastrointestinal (Abdomen) normal bowel sounds, soft, nontender, no hepatosplenomegaly Musculoskeletal Extremities: extremities normal to inspection; no cyanosis and no clubbing Skin no rashes, warm and dry Neurologic moves all extremities and awake; no focal motor deficits Psychiatric A+Ox3, euthymic affect Orientation: cooperative Genitourinary + abnormal external appearance (Noble catheter in place draining clear yellow urine) Lymphatic no lymphedema Discharge Data Allergies Allergy/AdvReac Type Severity Reaction Status Date / Time latex Allergy Mild contact Verified 08/26/20 22:05 dermatitis Sulfa (Sulfonamide Allergy Mild RASH Verified 08/26/20 22:05 Antibiotics) nickel Allergy Unknown contact Verified 08/26/20 22:05 dermatitis Consultations 08/26/20 23:18 ED Decision to Admit Stat 08/27/20 02:05 Consult Case Management - Discharge Planning Routine 08/27/20 03:57 Consult Cardiology Routine 08/27/20 06:41 Consult Pain Management Routine 08/28/20 08:06 Consult Oncology Routine 08/28/20 15:23 Consult Gse Mechanic Stat Ordered Studies 08/26/20 19:48 CT abd pelvis IV con only Urgent CT angio chest PE protocol Urgent 08/26/20 22:36 US venous doppler LE BI Urgent Chest x-ray x4 Hospital Course (1) Septicemia: Ms. Henry is a 75yo female with a PMHx significant for follicular lymphoma, aortic stenosis, chronic back pain and post-laminectomy syndrome with placement of an intrathecal pump, anxiety, GERD, HLD, HTN, insomnia and depression who presents with a persistent fever x2 weeks and intractable back pain after a fall at home 4 days ago. Has been treated for UTIs with 2 rounds of Macrobid in the last 2 weeks. Fever-resolved, growing pansensitive E. coli in blood cultures-most likely secondary to previous UTI With acute metabolic encephalopathy upon presentation which is now resolved Back pain likely secondary to developing pyelonephritis versus muscle spasm from recent fall CT abdomen/pelvis performed on the evening of admission shows no bowel obstruction or bowel wall thickening, nonspecific enteritis, some pathologic adenopathy improved from previous, emphysema, unchanged aneurysmal dilation of the ascending thoracic aorta 4.6 cm, status post cholecystectomy and with normal liver. She did also have prominence of the bilateral renal pelvis ease without abril hydronephrosis Urinalysis here with epithelial cells contaminating, 5-10 WBCs and 1+ leukocyte esterase, negative for bacteria, but also recently completed another course of Macrobid which could be making her have a false negative urinalysis A urine culture was not sent upon admission as the UA did not appear overtly infected -CTA chest with no evidence of pneumonia (notes 4.5cm aortic aneurysm, 8mm nodule in CAREY, axillary lymphadenopathy) but does have cystic changes as per pulmonology -COVID NEGATIVE as of 08/08/2020-negative again on 08/28 Uplogix viral respiratory panel negative on 08/28 -Temp of 38.2 on admission and now remains afebrile for several days, leukocytosis now resolved Procalcitonin of 0.57 on admission which went up to 65 now back down to 22 LFTs mildly elevated but no abdominal pain and no findings to explain this on CT from admission-likely secondary to sepsis versus medication side effect. LFTs are now normal Echocardiogram without vegetation and with E. coli bacteremia-do not suspect endocarditis -Repeat blood cultures on 08/27 again with E. coli -Repeat blood cultures on 08/28-remain no growth to date -Discontinued meropenem and started ceftriaxone on 08/29-we will convert to cefdinir 300 mg p.o. twice daily x11 more days to finish 14 days from the time of the last sterile cultures on 08/28-end date for antibiotic treatment will be 09/11/2020 -With septic shock as below which is now resolved -Follow CBC, CMP at rehab in 2 to 3 days (2) Septic shock: With hypotension with blood pressures in the 60s systolic overnight on 08/27-08/28 requiring multiple boluses of IV fluids PRBC transfusion was given for hemoglobin less than 10 in the setting of NSTEMI Blood pressures remained borderline low in the 70s to 80s systolic at times Transferred to ICU and placed on Jovanni-Synephrine on the night of 08/28-has now been weaned off and blood pressures are much improved for several days Appreciate lunch wagon operator consultation Continue treat with antibiotics as below Then received IV/p.o. Lasix for volume overload which is also much improved and blood pressures continue to remain stable (3) Acute hypoxemic respiratory failure: Had been requiring oxygen upon admission and then acutely worsened with significant respiratory distress after volume resuscitation and PRBC transfusion on 08/28 for profound hypotension Chest x-ray with worsening pulmonary edema on 08/28 and now much improved on imaging 08/29 Troponin trended downward to 4 and ECG without ischemic changes ABG 7.38/ on BiPAP 45% FiO2, now improved to 7.4 on 35% FiO2 Placed on BiPAP, given IV and p.o. Lasix and now much improved-now weaned to 2 L nasal cannula and with pulse ox of 98%-could likely wean off oxygen altogether on the day of discharge TRALI labs sent by lunch wagon operator-pathology interpretation is TACO Transferred to ICU on 08/28-downgraded the PCU on 08/30 and now stable for discharge to acute rehab Also with some chronic appearing cystic changes on chest CT-pulmonology questions if has Sjogren's/LIP associated with her lymphoma-needs outpatient follow-up -Continue prednisone 40 mg daily x7 days-last day will be 09/03 Follow chest x-ray as an outpatient Needs follow-up with pulmonology as an outpatient (4) Acute encephalopathy: Acute metabolic encephalopathy as above, secondary to septic shock, respiratory failure-now completely resolved Was on a Precedex drip overnight 08/28 which helped her maintain the BiPAP (5) Elevated troponin: Type II [place] due to demand ischemia -Trops elevated to 0.643 on admission and has now trended up to 7 and back down to 4 With moderate aortic stenosis -EKG with noted sinus tach, absence of chest pain Appreciate cardiology consultation-discussed with cardiology-most likely myocardial demand ischemia Echocardiogram here without wall motion abnormalities and with preserved EF, moderate aortic stenosis Repeat ECG with improvement in previous changes in anterior leads Transfused 1 unit PRBCs on 08/28 to keep hemoglobin closer to 10 and then had TACO as noted above Should follow-up with cardiology as an outpatient (6) Fever: Secondary to septicemia as above-now resolved Tylenol as needed (7) Presence of intrathecal pump: Seen by pain management here, she will have a delay in the replacement of the battery of her intrathecal pump until 2 weeks after finished with antibiotics for septicemia Has hydromorphone, bupivacaine, and baclofen in her pump was interrogated today and has enough battery life to last till least November or December Discussed her care with her pain management physician, Dr. Erickson, who said that the patient is nowhere near running out of her pump-her battery would be good to at least November Discussed care again with Abelardo Marquez PA-C with pain management-recommends discontinuing BULK SYSTEM OPERATOR pump started last evening and converting to hydrocodone p.o. as needed Also adding lidocaine patches to the lower back and right side of neck which seemed to help Plan is to change out her pain pump at the end of September. Follow-up with pain management as an outpatient (8) Persistent insomnia: Continue home trazodone (9) Hypokalemia: Resolved after replacement Permanently discontinue home HCTZ (10) Constipation: Now resolved -Continue bowel regimen with MiraLAX and senna/docusate (11) Peripheral edema: Secondary to lymphedema most likely from lymphoma in groin. Much improved now after IV diuresis and p.o. Lasix Doppler of lower extremities on admission was negative for DVT Plan to use Lasix 20 mg once daily as needed lower extremity edema Ultimately may need treatment for her lymphoma (12) Gastroesophageal reflux disease: -continue PPI (13) Depression: Continue home Cymbalta (14) Chronic pain syndrome: Intractable Back Pain/Lumbar post Laminectomy Syndrome-with acute on chronic pain secondary to recent fall CT abdomen/pelvis shows no acute fractures of the lumbar spine -Pt with intrathecal pump dispensing hydromorphone, bupivacaine, baclofen. Due for replacement on 09/03/2020. -Continue home Cymbalta, gabapentin 100mg qhs Discontinue home nabumetone 750mg BID as it is an NSAID and she had NSTEMI this admission Appreciate pain management consultation-discontinued BULK SYSTEM OPERATOR pump and converted to p.o. hydrocodone 5/325 mg p.o. every 6 hours as needed - lidocaine patches as above to lower back -PT/OT evaluations completed and recommend inpatient rehab (15) Hyperlipidemia: On Krill oil at home-holding while inpatient and can restart after discharge (16) Hypertension: -hypotensive as above which is now improved Continue Lasix as needed (17) Follicular lymphoma: -due for port placement after intrathecal pump replaced which will now be delayed due to septicemia -Initial plan was to start chemotherapy once port placed Consult her family intervention specialist/oncologist is appreciated-now second thoughts about starting chemotherapy as her CT scans of the chest/abdomen/pelvis were reviewed by oncology and she has sort of a waxing and waning picture. She may not need chemotherapy Follow-up with oncology as an outpatient (18) Aortic stenosis: Moderate as noted on echocardiogram Avoid extremes of volume and hypotension Follow-up with cardiology (19) Anxiety disorder, unspecified: Insomnia/Depression/Anxiety -Continue home melatonin, continue trazodone qhs as needed -Continue cymbalta 120mg daily, gabapentin 100mg qhs Was on Precedex drip overnight in the ICU which is now weaned off (20) DVT prophylaxis: Heparin SQ was provided Disposition-stable for discharge to acute rehab Total Time Total Time Spent Total Time Spent (In Minutes): 45 minutes Total Time Includes: Examination of the Patient, Discharge Planning, Medication Reconciliation, Communication With Other Providers (Pulmonology/critical care) and Other (Family members at the bedside) Discharge Plan Discharge Items Patient Disposition: Transfer Inpatient Rehab Fac Reason For Visit: FEVER, FALL, BACK PAIN Discharge Diagnosis: E. coli bacteremia,septic shock, acute respiratory failure with hypoxia Condition on Discharge: Good Activity: As commented below Lifting: Gradually increase as tolerated Bathing: No limitations Exercise/Sports: Gradually increase as tolerated Weightbearing: Full weightbearing Non-emergency contact: Primary Care Provider, Vp [employer], Oil And Gas Recruiter, Oncologist, [facility] [place] and Pain Management Call non-emergency contact if: you have any medication questions, your symptoms worsen, your pain is not controlled, your pain is worsening, your pain is unusual for you, your pain is concerning for you, you have a fever and your temperature is above 101 Follow-up/Referrals: Gunner Garcia MD [Primary Care Provider] - (Follow-up within 2 weeks after discharge from the rehab.) Marshal Connor MD [Physician] - (Please follow-up within 1 month after discharge.) Thien Verde DO [Physician] - (Follow-up within 2 weeks.) Josesito Chan MD [Physician] - (Follow-up for your chronic lung issues within 2 to 3 weeks.) Diet: Heart Healthy Addtl Attending Provider Instructions: You are admitted for fevers and back pain and found to have E. coli bacteremia and septic shock. You had significant anemia, a mild heart attack, and respiratory failure. You are admitted to the ICU and treated with IV antibiotics, medications to keep your blood pressure up, and a BiPAP facemask. You had a remarkable recovery. Please finish out a course of cefdinir as an oral antibiotic for the bloodstream infection. You will need to complete 11 more days of this. You had a mild heart attack secondary to the strain on your heart from the sepsis. Please follow-up with the retirement sales consultant after discharge. You have some chronic cystic changes seen on the CAT scan of your lungs that need to be followed by a naval aircrewman avionics. Please follow-up with him within 2 to 3 weeks after discharge. You should finish out a course of prednisone and azithromycin as prescribed by the naval aircrewman avionics. You can be weaned off the oxygen as tolerated. Your pain pump replacement has been delayed till the end of September. Please follow-up with pain management for this. You can continue lidocaine patches to the lower back and hydrocodone as needed for the acute pain you are having from your recent fall. As for your history of bladder prolapse and recurrent urinary tract infection, please consider a follow-up with a parcel post clerk or urologist after discharge. Please follow-up with Dr. Verde of oncology for your follicular lymphoma. He has some second thoughts now about starting you on chemotherapy at this time and this can be discussed with him at your follow-up appointment. You had significant anemia here and were transfused 1 unit of packed red blood cells during your hospitalization. Please check CBC, CMP at the rehab in 2 to 3 days. Pending Studies at Discharge: Yes (Final repeat blood cultures-no growth to date from 08/28) Stand-Alone Forms: My [facility] Skilled Items Patient informed of condition?: Yes DNR: No Discharge Level of Care: Acute rehab Communicable Disease: No Discharge Prognosis: Improving Lines: None Urinary Catheter: No Medications and DC Order Prescriptions: New ipratropium-albuterol 0.5 mg-3 mg(2.5 mg base)/3 mL Solution For Nebulization 3 ml NEB QIDR PRN (Reason: shortness of breath or wheezing) Qty: 15 RF: 0 hydrocodone-acetaminophen [Webster] 5-325 mg Tablet 1 tab PO Q6 PRN (Reason: pain) Qty: 10 RF: 0 furosemide 20 mg tablet 20 mg PO DAILY PRN (Reason: edema) Qty: 10 RF: 0 polyethylene glycol 3350 [Miralax] 17 gram Powder In Packet 17 g PO DAILY Qty: 30 RF: 0 prednisone 20 mg Tablet 40 mg PO QAM 3 Days Qty: 6 RF: 0 sennosides-docusate sodium [Senokot-S] 8.6-50 mg Tablet 1 tab PO QAM Qty: 30 RF: 0 lidocaine 5 % Adhesive Patch,Medicated 1 patch transdermal QAM Qty: 1 RF: 0 lidocaine 5 % Adhesive Patch,Medicated 2 patch transdermal QAM Qty: 1 RF: 0 cefdinir 300 mg capsule 300 mg PO BID 11 Days Qty: 22 RF: 0 azithromycin 250 mg tablet 500 mg PO DAILY 2 Days Qty: 4 RF: 0 Continued fexofenadine [Denise Allergy] 180 mg tablet 180 mg PO QAM RF: 0 aspirin [Adult Low Dose Aspirin] 81 mg tablet,delayed release (DR/EC) 81 mg PO HS RF: 0 acetaminophen [Tylenol Extra Strength] 500 mg tablet 1,000 mg PO Q6H PRN (Reason: Pain) RF: 0 vitamin B complex [B Complex-Vitamin B12] tablet 1 tab PO QAM RF: 0 cholecalciferol (vitamin D3) 2,000 unit capsule 2,000 units PO QAM RF: 0 krill oil 500 mg capsule 500 mg PO QAM RF: 0 melatonin 5 mg capsule 5 mg PO HS PRN (Reason: Sleep) RF: 0 fluticasone propionate [Flonase Allergy Relief] 50 mcg/actuation spray,suspension 2 sprays INTNAS DAILY PRN (Reason: allergy symptoms) Qty: 47.4 RF: 5 ferrous sulfate [iron] 325 mg (65 mg iron) tablet 325 mg PO QAM RF: 0 Lioresal 50 mcg/mL solution 50 mcg intrathecal DAILY RF: 0 morphine IR soln 1 applic implant UD RF: 0 multivitamin Tablet 2 tab PO QAM RF: 0 calcium carbonate-vitamin D3 [Calcium + D] 600 mg(1,500mg) -200 unit Tablet 1 tab PO QAM RF: 0 trazodone 50 mg tablet 25 - 50 mg PO HS PRN (Reason: sleep) RF: 0 lansoprazole [Prevacid] 30 mg capsule,delayed release(DR/EC) 30 mg PO QAM RF: 0 gabapentin [Neurontin] 100 mg capsule 100 mg PO HS RF: 0 duloxetine [Cymbalta] 60 mg capsule,delayed release(DR/EC) 120 mg PO QAM RF: 0 Discontinued nicotine (polacrilex) 2 mg gum 2 mg BUCCAL Q2H RF: 0 nabumetone [Relafen] 750 mg tablet 750 mg PO BID RF: 0 hydrochlorothiazide 25 mg tablet 25 mg PO QAM RF: 0 Discharge Orders: Discharge Order (Routine); Ordered 08/31/20 Ordered By: Gloria Parson Admission Data Admit Date/Time: 08/26/20 23:42 Attending Provider: Gloria Parson Admit Provider: Flori Puckett Primary Care Provider: Gunner Garcia Other Providers: Benny Pedraza ; Marshal Connor ; Oniel Layne ; Thien Verde V. ; Josesito Chan ; [facility] Coding Level of Care Code D/C Day Management >30 mins Diagnoses Septicemia A41.9 Septic shock A41.9; R65.21 Acute hypoxemic respiratory failure J96.01 Acute encephalopathy G93.40 Elevated troponin R77.8 Fever R50.9 Presence of intrathecal pump Z96.89 Persistent insomnia G47.00 Hypokalemia E87.6 Constipation K59.00 Peripheral edema R60.9 Gastroesophageal reflux disease K21.9 Depression F32.9 Chronic pain syndrome G89.4 Hyperlipidemia E78.5 Hyperlipidemia type: unspecified Hypertension I10 Hypertension type: essential hypertension 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 Follicular lymphoma type: unspecified follicular type Lymphoma site: unspecified region Aortic stenosis I35.0 Anxiety disorder, unspecified F41.1 Anxiety disorder type: generalized anxiety disorder DVT prophylaxis Z29.9
== END 2020-08-31 16:40 | DRG 871 ==
LOC: ED 18:38 → 2S 23:42 → SUATTDRO 23:42 → 2S 08-27 01:09 → 1E 08-28 15:17

== ENCOUNTER 2020-09-05 11:30 | Inpatient (IN) ==
[2020-09-05] MEDS ORDERED: MoRPHine SULFATE 4 MG/ML 1 ML CARP\\VIAL IV STA (12:35)
[2020-09-05] MEDS ORDERED: LIDOCAINE 5% 1 PATCH TD STA (12:35)
[2020-09-05] MEDS ORDERED: ACETAMINOPHEN 325 MG TAB PO STA (12:35)
[2020-09-05] MEDS ORDERED: methylPREDNISolone 125 MG/2 ML VIAL IV STA (12:37)
[2020-09-05 12:58] LABS: Hematocrit (blood only) 32.4 % (37-47); Hemoglobin 10.3 g/dL (12.0-16.0); Mean Corpuscular Hemoglobin 27.4 pg (25-34); Mean Corpuscular Hgb Conc 31.8 g/dL (32-36); Mean Corpuscular Volume 86.2 fL (80-100); Mean Platelet Volume 10.1 fL (7.4-10.4); Platelet Count 518 K/uL (130-400); RDW Coefficient of Variation 14.7 % (11.5-14.5); RDW Standard Deviation 45.7 fL (36.4-46.3); Red Blood Count 3.76 M/uL (4.2-5.4); White Blood Count 24.09 K/uL (4.8-10.8)
--- NOTE | 2020-09-05 13:12 | Emergency Department Note ---
Impression & Plan Leukocytosis, Acute leg pain ED Provider Note NAME: JAYLEEN BARRERA AGE: 75 SEX: F : 1945 ARRIVES VIA: Ambulance INFORMANT: Patient, ED PROVIDER(S): Eddie Arana MD Chief Complaint: Back and buttock/leg pain HPI: Patient states that she has had her pain worsening over the last 3 days to where she has not been able to sleep. Patient describes it as achy all the time and occasionally sharp. The patient has taken [place] and pain patches but without relief in her symptoms. Patient states that she cannot find a comfortable position. The patient is currently at [facility] due to concern for a recent discharge for urosepsis. Patient states that approximate 3 weeks prior she had slid out of a remote chair at home which exacerbated this discomfort and seems to persist. Patient denies striking her head. Patient denies any bowel or bladder incontinence. Patient denies any fevers, chills, chest pains, or shortness of breath. ROS: See HPI for pertinent positives and negatives. A total of 10 systems were reviewed and otherwise negative. Past medical history: See below Surgical history: See below Social history: See below Physical Exam: GENERAL: Uncomfortable in appearance, wearing glasses and a mask. EYE EXAM: Normal conjunctiva. PERRL, no anisocoria and EOM's grossly intact w/o pain. NECK: Supple, no nuchal rigidity, no adenopathy, non-tender. No signs of meningismus. LUNGS: Clear to auscultation. Normal chest wall mechanics. HEART: NSR, no MRG. ABDOMEN: Abdomen soft, non-tender, normo-active bowel sounds, no masses, no rebound or guarding. BACK: No CVA TTP. SKIN: No rashes and no bruising. UPPER EXTREMITIES: Upper extremities are grossly normal. LOWER EXTREMITIES: 2+ symmetric bilateral lower extremity edema, no saddle anesthesia, compartments are soft, no reproducible pain with good flexion and extension at the knee and ankle. Mild pain to the deep aspects of the bilateral buttocks without overlying skin change. NEURO EXAM: A&O x3, cranial nerves II-XII grossly intact, normal speech, moves all 4 extremities on command w/o issue. Differential diagnoses: Fracture, subluxation, dislocation, contusion, ligamentous injury, neurovascular, compartment syndrome, rhabdomyolysis, as well as other pathologies. Course: Patient was seen and evaluated the bedside. Full history physical exam was performed. EKG: Sinus rhythm, rate of 96, normal intervals, normal axis, T wave inversion in aVL. Imaging Studies: Radiology results as stated below per my review in the radiologist's interpretation: CT abd pelvis IV con only CLINICAL HISTORY: back/buttock pain; recent urosepsis; WBC 9->24 COMPARISON STUDY: 08/26/2020 TECHNIQUE: The patient was scanned in a dynamic helical fashion during intravenous administration of 94 cc of Optiray 320. A dose lowering technique was utilized adhering to the principles of ALARA. CT DOSE: 919.29 mGycm FINDINGS: Lower chest: There is aneurysmal dilatation of the ascending thoracic aorta which measures 46 mm. There is a small right pleural effusion. There is pulmonary emphysema. There are right basilar airspace opacities likely atelectatic. Liver: There is mild central biliary ductal dilatation. This remains unchanged. Gallbladder: Surgically absent Spleen: Normal in size and attenuation. Pancreas: Unremarkable. Adrenal glands: There is a stable 2 cm left adrenal nodule. Kidneys: There are bilateral renal hypodensities, likely representing cysts. There is minimal fullness of both renal collecting system similar to the prior study. There is no ureteral dilatation. Bowel: There are no transition zones to indicate bowel obstruction. There are scattered colonic air-fluid levels. There is no evidence of acute appendicitis. Peritoneum: There is trace perihepatic fluid. There is no significant pelvic a scites although the pelvis is partially obscured due to bilateral hip arthroplasties. Vasculature: The abdominal aorta is normal in course and caliber. Adenopathy: There is stable mild aortocaval and iliac chain adenopathy. Pelvic viscera: The patient appears be status post a prior hysterectomy Skeletal structures: There is an intraspinal catheter present. There are postsurgical changes of bilateral hip arthroplasties. There are postsurgical changes within the spine consisting of posterior laminectomies with L3-L5 spinal fusion with pedicle screws and rods. There are stable erosive changes involving the inferior L5 endplate and superior S1 endplate. There is stable gas within the L5-S1 disc. IMPRESSION: 1. No evidence of bowel obstruction. No evidence of free air 2. Small right pleural effusion 3. Trace perihepatic ascites 4. Stable mild intrahepatic biliary ductal dilatation 5. Stable aneurysmal dilatation of the ascending thoracic aorta which measures 46 mm. 6. Emphysema 7. Colonic air-fluid levels. This can be seen in normals as well as in patients with a diarrheal illness 8. Stable 2 cm left adrenal nodule 9. Stable mild aortocaval and iliac chain adenopathy. 10. Stable postsurgical changes within the lumbar spine. Stable erosive changes involving the L5-S1 endplates. ACT 112: Negative or not required by law. Electronically signed by: Dat Ornelas M.D. 09/05/2020 3:19 PM Dictated: 09/05/20 1509 Transcribed: 09/05/20 1509 Cardiac monitoring: An order was placed for continuous cardiac monitoring. The monitor shows a rate of 98 with sinus rhythm. MDM: Patient does present with concern for back and buttock pain. Blood work was obtained along with x-rays and the patient was given pain medication. Patient does have a white count of 24 with a left shift. This is an acute change from prior. The patient's kidney function is unremarkable. The patient did have a urinalysis completed as well which does not show any obvious infection. I did speak with the on-call hospitalist given this concern after CAT scan did not show any acute infectious or inflammatory findings. Patient was repeat pancultured. The patient did receive daptomycin and Zosyn. I did speak with the on-call hospitalist Danyel Martinez PA-C and the patient was admitted under Dr. Lopez. Past Med/Surg History Medical History Acute hypoxemic respiratory failure Anemia Anxiety Atherosclerosis of aorta Bacteremia due to Gram-negative bacteria Chronic pain syndrome Degenerative disc disease Depression DVT (deep venous thrombosis) possibly, treated inpatient directly following knee replacement. no problems since. Emphysema of lung Noted on chest CTs but not reported by patient. Follicular lymphoma currently monitoring and treating with Dr Msoeley (oncology). To have port placed for chemo by Dr Chow 09/17/20 Gastroesophageal reflux disease Gram-negative bacteremia Hyperlipidemia Hypertension Lumbar canal stenosis Mild aortic regurgitation Moderate aortic stenosis Moderate mitral regurgitation Myofascial pain Osteoarthritis Peripheral edema Currently, L >R, 2/2 lymphoma. Wearing compression socks. Persistent insomnia Piriformis syndrome Post laminectomy syndrome Presence of intrathecal pump Urinary tract infection currently finishing abx (08/21/20). not recurrent infections typically Surgical History H/O cataract removal with insertion of prosthetic lens bilateral History of cholecystectomy 1978 History of colonoscopy History of knee replacement procedure of right knee 2002 History of laminectomy lumbar ~2013 Previous back surgery 2006,2007,2013 S/P hip replacement bilateral 2015, 2016 Status post laminectomy with spinal fusion lumbar, 2007 & 2008 Family History Father Abdominal aneurysm Colorectal cancer Grandmother (Paternal) Cancer Other No family history of adverse response to anesthesia Denies family history of Ovarian cancer Prostate cancer Myocardial infarction Breast cancer Social History Smoking Status: Never smoker Second Hand Exposure: No; Hx Substance Use: No Preferred Language: Estonian Communication Ability: Effective Visual Impairment: Limited Hearing Ability: Normal Investor Relations Coordinator Required: No Beliefs That Will Affect Care: None marital status: / Current Living Situation: Alone current occupational status: retired Feels Safe at Home: Yes Childhood Exposure to Second-Hand Smoke: Yes caffeine: Yes Dental Care, Regularly: No Physical Activity Frequency: Does not Exercise Seatbelt Use: always Sunscreen Use: Yes Assistive Devices: Denture - Upper, Denture - Lower and Glasses Allergies Allergies Allergy/AdvReac Type Severity Reaction Status Date / Time latex Allergy Mild contact Verified 09/05/20 12:45 dermatitis Sulfa (Sulfonamide Allergy Mild RASH Verified 09/05/20 12:45 Antibiotics) nickel Allergy Unknown contact Verified 09/05/20 12:45 dermatitis Home Meds Home Medications Medication Instructions Recorded Confirmed acetaminophen 500 mg tablet 1,000 mg PO Q6H PRN tab 07/27/18 09/05/20 aspirin 81 mg tablet,delayed 81 mg PO DAILY 07/27/18 09/05/20 release cholecalciferol (vitamin D3) 50 2,000 units PO QAM 07/27/18 09/05/20 mcg (2,000 unit) capsule krill oil 500 mg capsule 500 mg PO QAM cap 06/29/19 09/05/20 ferrous sulfate 325 mg (65 mg 325 mg PO QAM 07/11/20 09/05/20 iron) tablet calcium carbonate-vitamin D3 1 tab PO QAM 08/21/20 09/05/20 duloxetine [Cymbalta] 120 mg PO QAM 08/21/20 09/05/20 gabapentin [Neurontin] 200 mg PO HS 08/21/20 09/05/20 multivitamin 2 tab PO QAM 08/21/20 09/05/20 trazodone 50 mg PO HS PRN 08/21/20 09/05/20 cyclobenzaprine [Flexeril] 5 mg PO TID PRN 09/05/20 09/05/20 docusate sodium 100 mg PO BID 09/05/20 09/05/20 heparin (porcine) 5,000 unit SUBCUT Q12H 09/05/20 09/05/20 ipratropium-albuterol [Combivent 1 puff INHALATION QID PRN 09/05/20 09/05/20 Respimat] loratadine [Claritin] 10 mg PO DAILY 09/05/20 09/05/20 mecobal-levomefolat Ca-B6 phos 1 tab PO DAILY 09/05/20 09/05/20 [Foltanx] melatonin 6 mg PO HS PRN 09/05/20 09/05/20 pantoprazole 40 mg PO DAILYBB 09/05/20 09/05/20 potassium chloride 10 meq PO BID 09/05/20 09/05/20 Previous Rx's Medication Instructions Recorded fluticasone propionate 50 2 sprays INTNAS DAILY PRN #47.4 gm 07/25/19 mcg/actuation nasal spray,suspension cefdinir 300 mg PO BID 11 Days #22 cap 08/31/20 furosemide 20 mg PO DAILY PRN #10 tab 08/31/20 hydrocodone-acetaminophen [[place]] 1 tab PO Q6 PRN #10 tab 08/31/20 lidocaine 1 patch TRANSDERMAL QAM #1 ea 08/31/20 lidocaine 2 patch TRANSDERMAL QAM #1 ea 08/31/20 polyethylene glycol 3350 [Miralax] 17 g PO DAILY #30 ea 08/31/20 sennosides-docusate sodium 1 tab PO QAM #30 tab 08/31/20 [Senokot-S] Results & Data (ED) Vital Signs Vital Signs - 24 hr 09/05/20 11:46 09/05/20 12:36 09/05/20 13:15 Temperature 36.9 C Temperature Source Oral Pulse Rate 98 H Pulse Rate [Apical] 103 H Respiratory Rate 18 20 Respiratory Effort / Characteristics Non-Labored Spontaneous Respiratory Depth Normal Respiratory Pattern Regular Blood Pressure 132/72 Blood Pressure [Right Arm] 136/80 Blood Pressure Mean 92 Blood Pressure Mean [Right Arm] 98 Pulse Oximetry 95 95 95 Oxygen Delivery Method Room Air Room Air Room Air Sepsis Recent Fever Within 48 Hours No Sepsis New/Unexplained Change in Mental Status No Sepsis Action Taken by Nursing No Action Required 09/05/20 15:00 09/05/20 17:00 Temperature Temperature Source Pulse Rate Pulse Rate [Apical] 90 88 Respiratory Rate 18 18 Respiratory Effort / Characteristics Respiratory Depth Respiratory Pattern Blood Pressure Blood Pressure [Right Arm] 119/66 127/68 Blood Pressure Mean Blood Pressure Mean [Right Arm] 83 87 Pulse Oximetry 95 95 Oxygen Delivery Method Room Air Room Air Sepsis Recent Fever Within 48 Hours Sepsis New/Unexplained Change in Mental Status Sepsis Action Taken by Jail Medications Current Medication List: was personally reviewed by me Laboratory Data Attestation: I reviewed the patient's lab results. Result diagrams: 09/05/20 11:45 09/05/20 11:45 Lab Results 09/05/20 09/05/20 09/05/20 Range/Units 11:45 11:45 16:20 WBC 24.09 H (4.8-10.8) K/uL RBC 3.76 L (4.2-5.4) M/uL Hgb 10.3 L (12.0-16.0) g/dL Hct 32.4 L (37-47) % MCV 86.2 (80-100) fL MCH 27.4 (25-34) pg MCHC 31.8 L (32-36) g/dL RDW Std Deviation 45.7 (36.4-46.3) fL RDW Coeff of [place] 14.7 H (11.5-14.5) % Plt Count 518 H (130-400) K/uL MPV 10.1 (7.4-10.4) fL Immature Gran % (Auto) 0.7 % Neut % (Auto) 87.1 % Lymph % (Auto) 5.4 % [place] % (Auto) 6.6 % Eos % (Auto) 0.2 % Baso % (Auto) 0.0 % Neut # (Auto) 20.96 H (1.4-6.5) K/uL Lymph # (Auto) 1.29 (1.2-3.4) K/uL [place] # (Auto) 1.60 H (0.11-0.59) K/uL Eos # (Auto) 0.06 (0-0.5) K/uL Baso # (Auto) 0.01 (0-0.2) K/uL Immature Gran # (Auto) 0.17 H (0.00-0.02) K/uL RBC Morphology Unremarkable Sodium 133 L (136-145) mmol/L Potassium 4.2 (3.5-5.1) mmol/L Chloride 96 L (98-107) mmol/L Carbon Dioxide 32 (21-32) mmol/L Anion Gap 5.0 (3-11) BUN 16 (7-18) mg/dl Creatinine 0.76 (0.6-1.2) mg/dl Est Cr Clr Drug Dosing 74.8 ml/min Est GFR ( Amer) 89.6 Est GFR (Non-Af Amer) 77.3 BUN/Creatinine Ratio 20.9 H (10-20) Glucose 85 (70-99) mg/dl Calcium 9.9 (8.5-10.1) mg/dl Total Bilirubin 0.9 (0.2-1) mg/dl AST 29 (15-37) U/L ALT 45 (12-78) U/L Alkaline Phosphatase 150 H (45-117) U/L Total Protein 7.1 (6.4-8.2) gm/dl Albumin 2.5 L (3.4-5.0) gm/dl Globulin 4.6 H (2.5-4.0) gm/dl Albumin/Globulin Ratio 0.5 L (0.9-2) Urine Color Dark Yellow Urine Appearance Clear (Clear) Urine pH 7.0 (4.5-7.5) Ur Specific [place] 1.023 (1.000-1.030) Urine Protein Negative (Negative) Urine Glucose (UA) Negative (Negative) Urine Ketones Negative (Negative) Urine Blood Trace H (Negative) Urine Nitrite Negative (Negative) Urine Bilirubin Negative (Negative) Urine Urobilinogen Negative (Negative) Ur Leukocyte Esterase Negative (Negative) Urine WBC (Auto) 1-5 (0-5) /hpf Urine RBC (Auto) 5-10 H (0-4) /hpf U Hyaline Cast (Auto) 1-5 (0-5) /lpf U Epithel Cells (Auto) 10-20 H (0-5) /lpf Urine Bacteria (Auto) Negative (Negative) Administered Medications Discontinued Medications Acetaminophen (Acetaminophen 325 Mg Tab) 650 mg PO NOW STA Stop: 09/05/20 12:36 Last Admin: 09/05/20 13:35 Dose: 650 mg Documented by: [id number] Fentanyl Citrate (Fentanyl Citrate 100 Mcg/2 Ml Vial) 100 mcg IV NOW STA Stop: 09/05/20 14:35 Last Admin: 09/05/20 14:45 Dose: 75 mcg Documented by: [id number] Piperacillin Sod/Tazobactam Sod (Zosyn) 4.5 gm in 120 mls @ 240 mls/hr IV NOW STA Stop: 09/05/20 13:58 Last Infusion: 09/05/20 14:13 Dose: 0 mls/hr Documented by: [id number] Admin: 09/05/20 13:43 Dose: 240 mls/hr Documented by: [id number] Daptomycin 375 mg/ Syringe 7.5 mls @ 3.75 mls/min IV NOW STA; Protocol Stop: 09/05/20 13:32 Last Admin: 09/05/20 14:14 Dose: 3.75 mls/min Documented by: [id number] Ioversol (Ioversol 100ml) 94 ml IV ONCE ONE Stop: 09/05/20 14:04 Last Admin: 09/05/20 14:04 Dose: 94 ml Documented by: [id number] Lidocaine (Lidocaine 5% 1 Patch) 1 patch TD NOW STA Stop: 09/05/20 12:36 Last Admin: 09/05/20 13:34 Dose: 1 patch Documented by: [id number] Methylprednisolone (Methylprednisolone 125 Mg/2 Ml Vial) 60 mg IV NOW STA Stop: 09/05/20 12:38 Last Admin: 09/05/20 13:35 Dose: 60 mg Documented by: [id number] Morphine Sulfate (Morphine Sulfate 4 Mg/Ml 1 Ml Carp\Vial) 4 mg IV NOW STA Stop: 09/05/20 12:36 Last Admin: 09/05/20 13:43 Dose: 4 mg Documented by: [id number] Discharge Plan Visit Data Chief Complaint: Pain (Generalized) ED Provider: Eddie Arana Discharge Problem: Leukocytosis, Acute leg pain Forms Stand Alone Forms: [facility] Prescriptions Prescriptions: No Action aspirin [Adult Low Dose Aspirin] 81 mg tablet,delayed release (DR/EC) 81 mg PO DAILY RF: 0 acetaminophen [Tylenol Extra Strength] 500 mg tablet 1,000 mg PO Q6H PRN (Reason: Pain) RF: 0 cholecalciferol (vitamin D3) 2,000 unit capsule 2,000 units PO QAM RF: 0 krill oil 500 mg capsule 500 mg PO QAM RF: 0 fluticasone propionate [Flonase Allergy Relief] 50 mcg/actuation spray,suspension 2 sprays INTNAS DAILY PRN (Reason: allergy symptoms) Qty: 47.4 RF: 5 ferrous sulfate [iron] 325 mg (65 mg iron) tablet 325 mg PO QAM RF: 0 multivitamin Tablet 2 tab PO QAM RF: 0 calcium carbonate-vitamin D3 600 mg(1,500mg) -200 unit Tablet 1 tab PO QAM RF: 0 trazodone 50 mg tablet 50 mg PO HS PRN (Reason: sleep) RF: 0 gabapentin [Neurontin] 100 mg capsule 200 mg PO HS RF: 0 duloxetine [Cymbalta] 60 mg capsule,delayed release(DR/EC) 120 mg PO QAM RF: 0 hydrocodone-acetaminophen [[place]] 5-325 mg Tablet 1 tab PO Q6 PRN (Reason: pain) Qty: 10 RF: 0 furosemide 20 mg tablet 20 mg PO DAILY PRN (Reason: edema) Qty: 10 RF: 0 polyethylene glycol 3350 [Miralax] 17 gram Powder In Packet 17 g PO DAILY Qty: 30 RF: 0 sennosides-docusate sodium [Senokot-S] 8.6-50 mg Tablet 1 tab PO QAM Qty: 30 RF: 0 lidocaine 5 % Adhesive Patch,Medicated 1 patch transdermal QAM Qty: 1 RF: 0 lidocaine 5 % Adhesive Patch,Medicated 2 patch transdermal QAM Qty: 1 RF: 0 cefdinir 300 mg capsule 300 mg PO BID 11 Days Qty: 22 RF: 0 potassium chloride 10 mEq Tablet Extended Release 10 meq PO BID RF: 0 melatonin 3 mg Tablet 6 mg PO HS PRN (Reason: Sleep) RF: 0 pantoprazole 40 mg Tablet,Delayed Release (Dr/Ec) 40 mg PO DAILYBB RF: 0 docusate sodium 100 mg Capsule 100 mg PO BID RF: 0 heparin (porcine) 5,000 unit/mL Solution 5,000 unit SUBCUT Q12H RF: 0 loratadine [Claritin] 10 mg Tablet 10 mg PO DAILY RF: 0 cyclobenzaprine [Flexeril] 5 mg Tablet 5 mg PO TID PRN (Reason: Muscle Spasm) RF: 0 Foltanx 3-35-2 mg Tablet 1 tab PO DAILY RF: 0 Combivent Respimat 20-100 mcg/actuation Mist 1 puff INHALATION QID PRN (Reason: Shortness Of Breath) RF: 0 Discharge Problem: Leukocytosis Qualifiers: Leukocytosis type: bandemia Qualified Code(s): D72.825 - Bandemia Acute leg pain Qualifiers: Laterality: unspecified laterality Qualified Code(s): M79.606 - Pain in leg, unspecified
[2020-09-05 13:15] LABS: Albumin Level 2.5 gm/dl (3.4-5.0); BUN Creatinine Ratio 20.9 (10-20); Calcium 9.9 mg/dl (8.5-10.1); Creatinine Clr Calc Pharmacy 74.8 ml/min; Est GFR (African American) 89.6; Est GFR (Non-African American) 77.3; Potassium 4.2 mmol/L (3.5-5.1)
[2020-09-05 13:18] LABS: Albumin Globulin Ratio 0.5 (0.9-2); Basophils # (auto) 0.01 K/uL (0-0.2); Bilirubin,Total 0.9 mg/dl (0.2-1); Eosinophils # (auto) 0.06 K/uL (0-0.5); Eosinophils % (auto) 0.2 %; Globulin 4.6 gm/dl (2.5-4.0); Immature Granulocytes # (auto) 0.17 K/uL (0.00-0.02); Immature Granulocytes % (auto) 0.7 %; Lymphocytes # (auto) 1.29 K/uL (1.2-3.4); Lymphocytes % (auto) 5.4 %; Monocytes % (auto) 6.6 %; Neutrophils # (auto) 20.96 K/uL (1.4-6.5); Neutrophils % (auto) 87.1 %; RBC Morphology Unremarkable; Total Protein 7.1 gm/dl (6.4-8.2)
[2020-09-05] MEDS ORDERED: PIPERACILLIN/TAZOBACTAM 4.5 GM/120 ML BAG IV STA (13:29)
[2020-09-05] MEDS ORDERED: DAPTOmycin 375 MG in SYRINGE 0 ML IV STA (13:31)
[2020-09-05] MEDS ORDERED: IOVERSOL 100ml IV ONE (14:03)
[2020-09-05] MEDS ORDERED: fentaNYL citrate 100 MCG/2 ML VIAL IV STA (14:34)
--- NOTE | 2020-09-05 15:20 | CT Scan Report ---
CT abd pelvis IV con only CLINICAL HISTORY: back/buttock pain; recent urosepsis; WBC 9->24 COMPARISON STUDY: 08/26/2020 TECHNIQUE: The patient was scanned in a dynamic helical fashion during intravenous administration of 94 cc of Optiray 320. A dose lowering technique was utilized adhering to the principles of ALARA. CT DOSE: 919.29 mGycm FINDINGS: Lower chest: There is aneurysmal dilatation of the ascending thoracic aorta which measures 46 mm. The re is a small right pleural effusion. There is pulmonary emphysema. There are right basilar airspace opacities likely atelectatic. Liver: There is mild central biliary ductal dilatation. This remains unchanged. Gallbladder: Surgically absent Spleen: Normal in size and attenuation. Pancreas: Unremarkable. Adrenal glands: There is a stable 2 cm left adrenal nodule. Kidneys: There are bilateral renal hypodensities, likely representing cysts. There is minimal fullnes s of both renal collecting system similar to the prior study. There is no ureteral dilatation. Bowel: There are no transition zones to indicate bowel obstruction. There are scattered colonic air-f luid levels. There is no evidence of acute appendicitis. Peritoneum: There is trace perihepatic fluid. There is no significant pelvic ascites although the pel vis is partially obscured due to bilateral hip arthroplasties. Vasculature: The abdominal aorta is normal in course and caliber. Adenopathy: There is stable mild aortocaval and iliac chain adenopathy. Pelvic viscera: The patient appears be status post a prior hysterectomy Skeletal structures: There is an intraspinal catheter present. There are postsurgical changes of bila teral hip arthroplasties. There are postsurgical changes within the spine consisting of posterior yang inectomies with L3-L5 spinal fusion with pedicle screws and rods. There are stable erosive changes in volving the inferior L5 endplate and superior S1 endplate. There is stable gas within the L5-S1 disc. IMPRESSION: 1. No evidence of bowel obstruction. No evidence of free air 2. Small right pleural effusion 3. Trace perihepatic ascites 4. Stable mild intrahepatic biliary ductal dilatation 5. Stable aneurysmal dilatation of the ascending thoracic aorta which measures 46 mm. 6. Emphysema 7. Colonic air-fluid levels. This can be seen in normals as well as in patients with a diarrheal illn ess 8. Stable 2 cm left adrenal nodule 9. Stable mild aortocaval and iliac chain adenopathy. 10. Stable postsurgical changes within the lumbar spine. Stable erosive changes involving the L5-S1 e ndplates. ACT 112: Negative or not required by law. Electronically signed by: Dat Ornelas M.D. 09/05/2020 3:19 PM
[2020-09-05 16:35] LABS: Appearance Urine Clear (Clear); Bacteria Urine Automated Negative (Negative); Bilirubin Urine Negative (Negative); Blood Urine Trace (Negative); Color Urine Dark Yellow; Glucose Urine UA Negative (Negative); Ketones Urine Negative (Negative); Leukocyte Esterase Urine Negative (Negative); Nitrite Urine Negative (Negative); Protein Urine Negative (Negative); Specific Gravity Urine 1.023 (1.000-1.030); Urobilinogen Urine Negative (Negative)
--- NOTE | 2020-09-05 17:45 | History & Physical Report ---
Date of Service September 05, 2020 Assessment & Plan (1) Leukocytosis: Patient has an elevated white count of 24,000 in association with an elevated procalcitonin She was reported to have fever at [facility] but denies any symptoms She is currently afebrile in the emergency department She was on cefdinir as an outpatient since her discharge 08/31/2020 She received daptomycin and Zosyn in the emergency department and was beyer- cultured for urine and blood Will admit for observation on the medical floor Follow serial labs and culture (2) Elevated procalcitonin: Patient discharged from [facility] on 1023 after being treated for urosepsis On 08/29/2020 the patient's procalcitonin was 65.55 While procalcitonin could still be trending down from that admission, it is noted the patient has severe leukocytosis At this point will treat with antibiotics and follow while awaiting beyer culture results (3) Follicular lymphoma: Follows with the cancer care [facility] Dr. Verde saw the patient the last admission Patient was to see him as an outpatient for further plan Inasmuch as patient again has elevated white count with suspicion for infection, we will not consult oncology at this time Patient to follow-up outpatient on discharge (4) Post laminectomy syndrome: Difficult to differentiate between acute and chronic pain Patient does have an intrathecal pump Was scheduled to be replaced 09/03/2020. This was canceled secondary to uro sepsis Due to increased pain at this time, we will not add any significant pain meds and will ask pain management to see the patient tomorrow Patient did receive 60 mg of IV methylprednisolone in the emergency department. We will hold off on any additional steroids Continue Cymbalta for depression as well as pain modulation We will also continue as needed tramadol, gabapentin, and Victoria at home dose levels (5) Hypertension: Blood pressure currently well controlled at 119/66 Patient does not appear to be on any outpatient antihypertensives We will follow vital signs per protocol (6) Gastroesophageal reflux disease: Continue pantoprazole 40 mg p.o. daily (7) Impaired fasting glucose: Hemoglobin A1c July 2020 was 5.2% Will not start sliding scale insulin We will place the patient on a diabetic/heart healthy diet (8) Moderate aortic stenosis: Watch ins and outs (9) DVT prophylaxis: Heparin 5000 units subcutaneously every 12 hours Ambulate as tolerated Out of bed to chair as tolerated Please refer to Dr. Lopez's addendum for any further recommendations or changes History of Present Illness Primary Care Provider: Gunner Garcia MD Attending: Dr. Clement Lopez This is a 75-year-old female that was sent to the emergency department from [facility] for fever and intractable pain. She has a past medical history including chronic pain secondary to lumbar postlaminectomy syndrome, follicular lymphoma, aortic stenosis, moderate mitral valve regurgitation, placement of intrathecal pump, anxiety, GERD, hyperlipidemia, hypertension and insomnia. She was recently admitted to [facility] from August 26, 2020 until August 31, 2020 with urosepsis. She was discharged on cefdinir to [facility] for rehab for her chronic pain. During that hospital stay she was seen by pain management. There was no adjustment to the intrathecal pump at that time secondary to use of IV and oral opiates. She was scheduled to have a intrathecal pump revision replacement for 09/03/2020. This was canceled at that time secondary to her urosepsis. The patient states that she has been undergoing therapy at [facility] and this is aggravated her pain she thinks. She was told that she had a fever but denies any awareness of fever, sweats, chills, rigors. She is more comfortable in a wheelchair and has difficulty in a bed due to discomfort. She has no cough, loss of taste or smell, or diarrhea. Appetite is decreased. She has no nausea or vomiting. She reports daily movements of her bowel which are soft but formed with no reports of watery diarrhea. She denies any blood in her stool but states that she has chronic gross hematuria. She has no other acute complaints at this time. The patient was seen with her daughter Carmita at bedside. She is a power of civil attorney. Allergies Allergy/AdvReac Type Severity Reaction Status Date / Time latex Allergy Mild contact Verified 09/05/20 12:45 dermatitis Sulfa (Sulfonamide Allergy Mild RASH Verified 09/05/20 12:45 Antibiotics) nickel Allergy Unknown contact Verified 09/05/20 12:45 dermatitis Home Medications Home Medications Medication Instructions Recorded Confirmed Type acetaminophen 500 mg tablet 1,000 mg PO Q6H PRN tab 07/27/18 09/05/20 History aspirin 81 mg tablet,delayed 81 mg PO DAILY 07/27/18 09/05/20 History release cholecalciferol (vitamin D3) 50 2,000 units PO QAM 07/27/18 09/05/20 History mcg (2,000 unit) capsule krill oil 500 mg capsule 500 mg PO QAM cap 06/29/19 09/05/20 History fluticasone propionate 50 2 sprays INTNAS DAILY PRN #47.4 gm 07/25/19 09/05/20 Rx mcg/actuation nasal spray,suspension ferrous sulfate 325 mg (65 mg 325 mg PO QAM 07/11/20 09/05/20 History iron) tablet calcium carbonate-vitamin D3 1 tab PO QAM 08/21/20 09/05/20 History duloxetine [Cymbalta] 120 mg PO QAM 08/21/20 09/05/20 History gabapentin [Neurontin] 200 mg PO HS 08/21/20 09/05/20 History multivitamin 2 tab PO QAM 08/21/20 09/05/20 History trazodone 50 mg PO HS PRN 08/21/20 09/05/20 History cefdinir 300 mg PO BID 11 Days #22 cap 08/31/20 09/05/20 Rx furosemide 20 mg PO DAILY PRN #10 tab 08/31/20 09/05/20 Rx hydrocodone-acetaminophen [Victoria] 1 tab PO Q6 PRN #10 tab 08/31/20 09/05/20 Rx lidocaine 1 patch TRANSDERMAL QAM #1 ea 08/31/20 09/05/20 Rx lidocaine 2 patch TRANSDERMAL QAM #1 ea 08/31/20 09/05/20 Rx polyethylene glycol 3350 [Miralax] 17 g PO DAILY #30 ea 08/31/20 09/05/20 Rx sennosides-docusate sodium 1 tab PO QAM #30 tab 08/31/20 09/05/20 Rx [Senokot-S] cyclobenzaprine [Flexeril] 5 mg PO TID PRN 09/05/20 09/05/20 History docusate sodium 100 mg PO BID 09/05/20 09/05/20 History heparin (porcine) 5,000 unit SUBCUT Q12H 09/05/20 09/05/20 History ipratropium-albuterol [Combivent 1 puff INHALATION QID PRN 09/05/20 09/05/20 History Respimat] loratadine [Claritin] 10 mg PO DAILY 09/05/20 09/05/20 History mecobal-levomefolat Ca-B6 phos 1 tab PO DAILY 09/05/20 09/05/20 History [Foltanx] melatonin 6 mg PO HS PRN 09/05/20 09/05/20 History pantoprazole 40 mg PO DAILYBB 09/05/20 09/05/20 History potassium chloride 10 meq PO BID 09/05/20 09/05/20 History Past Med/Surg History Medical History Acute hypoxemic respiratory failure Anemia Anxiety Atherosclerosis of aorta Bacteremia due to Gram-negative bacteria Chronic pain syndrome Degenerative disc disease Depression DVT (deep venous thrombosis) possibly, treated inpatient directly following knee replacement. no problems since. Emphysema of lung Noted on chest CTs but not reported by patient. Follicular lymphoma currently monitoring and treating with Dr Moseley (oncology). To have port placed for chemo by Dr Chow 09/17/20 Gastroesophageal reflux disease Gram-negative bacteremia Hyperlipidemia Hypertension Lumbar canal stenosis Mild aortic regurgitation Moderate aortic stenosis Moderate mitral regurgitation Myofascial pain Osteoarthritis Peripheral edema Currently, L >R, 2/2 lymphoma. Wearing compression socks. Persistent insomnia Piriformis syndrome Post laminectomy syndrome Presence of intrathecal pump Urinary tract infection currently finishing abx (08/21/20). not recurrent infections typically Surgical History H/O cataract removal with insertion of prosthetic lens bilateral History of cholecystectomy 1977 History of colonoscopy History of knee replacement procedure of right knee 2002 History of laminectomy lumbar ~2013 Previous back surgery 2006,2007,2013 S/P hip replacement bilateral 2015, 2016 Status post laminectomy with spinal fusion lumbar, 2007 & 2008 Family History Father Abdominal aneurysm Colorectal cancer Grandmother (Paternal) Cancer Other No family history of adverse response to anesthesia Denies family history of Ovarian cancer Prostate cancer Myocardial infarction Breast cancer Social History Smoking Status: Never smoker Second Hand Exposure: No; Hx Substance Use: No Preferred Language: Marshallese Communication Ability: Effective Visual Impairment: Limited Hearing Ability: Normal Health Teacher Required: No Beliefs That Will Affect Care: None marital status: / Current Living Situation: Alone current occupational status: retired Feels Safe at Home: Yes Childhood Exposure to Second-Hand Smoke: Yes caffeine: Yes Dental Care, Regularly: No Physical Activity Frequency: Does not Exercise Seatbelt Use: always Sunscreen Use: Yes Assistive Devices: Denture - Upper, Denture - Lower and Glasses Review of Systems Review of Systems: All systems reviewed & are unremarkable except as noted in HPI & below Physical Exam Physical Exam: GENERAL : No acute distress. Pleasant. No evidence of conversational dyspnea EYES: No icterus, gaze conjugate. Lenses from cataract repair evident. NOSE: No evidence of epistaxis MOUTH: No lesions or candidiasis. Tongue is midline. No facial droop NECK: Supple. No carotid bruits or stridor appreciated LUNGS: CTA B/L, no wheezes, rales or rhonchi. Good inspiratory effort HEART: Regular, rate controlled. Harsh grade 3/6 holistic murmur over the aortic valve. ABDOMEN: Soft, NT, ND, BS Present. Intrathecal pump site examined. No evidence of tenderness or erythema around the pump. There are some areas of punctate hemorrhage secondary to subcutaneous heparin injections. No evidence of excoriation or open sores on the abdomen. EXTREMITIES: +3 bilateral pitting LE edema, pedal pulses intact and equal bilaterally NEURO: A&OX3. Pupils equal round and reactive to light. Tongue is midline. No facial droop. Strength 2/4 upper and lower bilateral extremities. Negative for pain with straight leg raise (note the patient was in the chair at the time of examination). Cerebellar function intact with rapid alternating movements and [id number]. Deep tendon reflexes were not checked. Gait and Romberg were deferred. No focal deficits to cranial nerves II through XII as examined. Results & Data Results & Data ([facility]) Vital Signs (Past 12 Hours) Vital Signs Temp Pulse Pulse Resp BP BP Pulse Ox 09/05/20 15:00 90 18 119/66 95 09/05/20 13:15 103 H 20 136/80 95 09/05/20 12:36 95 09/05/20 11:46 36.9 C 98 H 18 132/72 95 Laboratory Results 09/05/20 11:45 09/05/20 11:45 Laboratory Tests 08/26/20 08/28/20 08/29/20 20:28 07:33 05:46 Procalcitonin 0.57 H 7.67 H 65.55 H 08/31/20 04:14 Procalcitonin 22.67 H Laboratory Tests 07/11/20 15:13 Hemoglobin A1c 5.[address] abd pelvis IV con only CLINICAL HISTORY: back/buttock pain; recent urosepsis; WBC 9->24 COMPARISON STUDY: 08/26/2020 TECHNIQUE: The patient was scanned in a dynamic helical fashion during intravenous administration of 94 cc of Optiray 320. A dose lowering technique was utilized adhering to the principles of ALARA. CT DOSE: 919.29 mGycm FINDINGS: Lower chest: There is aneurysmal dilatation of the ascending thoracic aorta which measures 46 mm. There is a small right pleural effusion. There is pulmonary emphysema. There are right basilar airspace opacities likely atelectatic. Liver: There is mild central biliary ductal dilatation. This remains unchanged. Gallbladder: Surgically absent Spleen: Normal in size and attenuation. Pancreas: Unremarkable. Adrenal glands: There is a stable 2 cm left adrenal nodule. Kidneys: There are bilateral renal hypodensities, likely representing cysts. There is minimal fullness of both renal collecting system similar to the prior study. There is no ureteral dilatation. Bowel: There are no transition zones to indicate bowel obstruction. There are scattered colonic air-fluid levels. There is no evidence of acute appendicitis. Peritoneum: There is trace perihepatic fluid. There is no significant pelvic ascites although the pelvis is partially obscured due to bilateral hip arthroplasties. Vasculature: The abdominal aorta is normal in course and caliber. Adenopathy: There is stable mild aortocaval and iliac chain adenopathy. Pelvic viscera: The patient appears be status post a prior hysterectomy Skeletal structures: There is an intraspinal catheter present. There are postsurgical changes of bilateral hip arthroplasties. There are postsurgical changes within the spine consisting of posterior laminectomies with L3-L5 spinal fusion with pedicle screws and rods. There are stable erosive changes involving the inferior L5 endplate and superior S1 endplate. There is stable gas within the L5-S1 disc. IMPRESSION: 1. No evidence of bowel obstruction. No evidence of free air 2. Small right pleural effusion 3. Trace perihepatic ascites 4. Stable mild intrahepatic biliary ductal dilatation 5. Stable aneurysmal dilatation of the ascending thoracic aorta which measures 46 mm. 6. Emphysema 7. Colonic air-fluid levels. This can be seen in normals as well as in patients with a diarrheal illness 8. Stable 2 cm left adrenal nodule 9. Stable mild aortocaval and iliac chain adenopathy. 10. Stable postsurgical changes within the lumbar spine. Stable erosive changes involving the L5-S1 endplates. Electronically signed by: Dat Ornelas M.D. 09/05/2020 3:19 PM Code Status & VTE Plan Code Status Level I: Full resuscitation VTE Prophylaxis Plan VTE Prophylaxis will be ordered: Yes Critical Care Time Critical Care Time: No Prolonged Care Time Prolonged Care Time: No Supervising Physician Co-Signing Physician Notes I supervised Danyel Martinez PA-C on this admission. I interviewed and examined the patient independently of him. The plan is as written in his note except for any following changes/exceptions: None PG Care Time/CCT Total # of Minutes Spent Total Time Spent with Patient: Total time spent is greater than 50% in coordination of care (as documented) at patient's floor/unit and/or counseling patient: 65 minutes including discussion with patient, patient's daughter Carmita, attending, and ER physician. Also reviewed the plan with nursing. Prolonged Care Time Prolonged Care Time: No Critical Care Time: No Coding Level of Care Code 30065 OBS Care - Level 3 Medical Decision Making Moderate Complexity Diagnoses Leukocytosis D72.829 Elevated procalcitonin R79.89 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 Follicular lymphoma type: unspecified follicular type Lymphoma site: unspecified region Post laminectomy syndrome M96.1 Hypertension I10 Hypertension type: essential hypertension Gastroesophageal reflux disease K21.9 Impaired fasting glucose R73.01 Moderate aortic stenosis I35.0 DVT prophylaxis Z29.9 Time Spent (min) 65 (1) Follicular lymphoma Follicular lymphoma type: unspecified follicular type Lymphoma site: unspecified region Qualified Code(s): C82.90 - Follicular lymphoma, unspecified, unspecified site (2) Hypertension Hypertension type: essential hypertension Qualified Code(s): I10 - Essential (primary) hypertension
[2020-09-05] MEDS ORDERED: PIPERACILL/TAZOBAC CONSULT ACTIVE PRN (19:26)
[2020-09-05] MEDS ORDERED: CYCLOBENZAPRINE HCL 5 MG TAB PO PRN (19:26)
[2020-09-05] MEDS ORDERED: IPRATROPIUM BROMIDE/ALBUTEROL respimat INH INH PRN (19:26)
[2020-09-05] MEDS ORDERED: FLUTICASONE PROPIONATE NA SPR 16 GM BTL NAE PRN (19:26)
[2020-09-05] MEDS ORDERED: FUROSEMIDE 20 MG TAB PO PRN (19:26)
[2020-09-05] MEDS ORDERED: ACETAMINOPHEN 500 MG TAB PO PRN (19:26)
--- NOTE | 2020-09-05 19:57 | XRay Report ---
XR chest 1V portable HISTORY: High white count/procalcitonin, fever COMPARISON: Chest 08/29/2020. FINDINGS: There are low lung volumes with mild elevation of the right hemidiaphragm. No pneumothorax. Trace right pleural effusion. There is mild diffuse interstitial vascular thickening consistent with mild pulmonary edema. Right basilar linear densities favor subsegmental atelectasis. The cardiac mani houette remains mildly enlarged. IMPRESSION: Mild cardiomegaly, trace right pleural effusion, and mild interstitial pulmonary edema. ACT 112: Negative or not required by law. Electronically signed by: Abundio Ansari M.D. 09/05/2020 7:56 PM
[2020-09-05] MEDS ORDERED: Albuterol HFA 8 GM Inhaler (Combivent Respimat P&T Subs) INH PRN (20:09)
[2020-09-05] MEDS ORDERED: Ipratropium HFA Inhaler (Combivent Respimat P&T Subs) INH PRN (20:09)
[2020-09-05] MEDS: PIPERACILLIN/TAZOBACTAM 3.375 GM in DEXTROSE 5% 100 ML IV SCH (21:54)
[2020-09-05] MEDS: DOCUSATE SODIUM 100 MG CAP PO SCH ×2 (22:39→22:41)
[2020-09-05] MEDS: POTASSIUM CHLORIDE 10 MEQ TABCR PO SCH (22:39)
[2020-09-05] MEDS: HEPARIN SOD 5,000 UNIT/0.5 ML VIAL SQ SCH (22:39)
[2020-09-05] MEDS: GABAPENTIN 100 MG CAP PO SCH (22:40)
[2020-09-05] MEDS: HYDROmorphone INJ 0.5 MG/0.5 ML SYR IV PRN (22:58)
[2020-09-05] MEDS: HYDROCODONE/ACETAMOPHEN 5/325MG TAB PO PRN (23:34)
[2020-09-06] MEDS ORDERED: IBUPROFEN 600 MG TAB PO PRN (01:41)
[2020-09-06] MEDS: traZODone HCL 50 MG TAB PO PRN ×2 (01:56→21:09)
[2020-09-06] MEDS: ACETAMINOPHEN 500 MG TAB PO PRN ×2 (01:56→23:40)
[2020-09-06] MEDS: PIPERACILLIN/TAZOBACTAM 3.375 GM in DEXTROSE 5% 100 ML IV SCH ×3 (04:24→21:04)
[2020-09-06] MEDS: PANTOprazole 40 MG TAB PO SCH (06:12)
[2020-09-06 06:47] LABS: Eosinophils # (auto) 0.01 K/uL (0-0.5); Eosinophils % (auto) 0.1 %; Hematocrit (blood only) 28.8 % (37-47); Hemoglobin 9.4 g/dL (12.0-16.0); Immature Granulocytes % (auto) 0.5 %; Lymphocytes % (auto) 5.3 %; Mean Corpuscular Hemoglobin 27.6 pg (25-34); Mean Corpuscular Hgb Conc 32.6 g/dL (32-36); Mean Corpuscular Volume 84.7 fL (80-100); Mean Platelet Volume 9.1 fL (7.4-10.4); Monocytes # (auto) 1.07 K/uL (0.11-0.59); Monocytes % (auto) 5.6 %; Neutrophils # (auto) 16.82 K/uL (1.4-6.5); Neutrophils % (auto) 88.5 %; Platelet Count 440 K/uL (130-400); RDW Coefficient of Variation 14.6 % (11.5-14.5); RDW Standard Deviation 45.4 fL (36.4-46.3)
[2020-09-06 07:16] LABS: BUN Creatinine Ratio 20.7 (10-20); Calcium 9.2 mg/dl (8.5-10.1); Creatinine Clr Calc Pharmacy 69.3 ml/min; Est GFR (African American) 84.2; Est GFR (Non-African American) 72.6; Potassium 4.1 mmol/L (3.5-5.1)
--- NOTE | 2020-09-06 08:39 | Pain Management Consultation ---
Date of Consultation September 06, 2020 Assessment & Plan (1) Presence of intrathecal pump: (2) Post laminectomy syndrome: (3) Acute exacerbation of chronic low back pain: * Continue Hydrocodone 5/325mg x 6 hours PRN pain. May consider changing to every 4 hours or increasing the dosage to 7.5/325mg. * Flexeril was changed to 10mg and to scheduled as this has helped the patient's acute on chronic lumbar pain in the past. * Not a candidate for interventional procedures at this time. * Continue IV Dilaudid if needed for breakthrough pain. * She may have to modify exercises while in [facility]. Thank you for the consultation. History of Present Illness Reason for Consultation: back pain Attending Physician: Vicente Pérez History of Present Illness Mrs. Henry is a 75 year old female that is well known to the [facility] Pain service with a history of chronic intractable low back pain that has required the implantation of an intrathecal pump and catheter delivery system. She was admitted on 08/26/2020 for urosepsis. She was supposed to have the pump replaced on 09/03 but that was cancelled due to infection. To further prolong her next pump refill date the PTM was disabled. She was typically using the PTM once every few days. Patient was discharged on 08/31 and sent to [facility] for rehab. She has been working on exercises and stretches in rehab and feels like she may be doing too much. She has been taking [place] if needed for pain relief which she states was not efficacious. She describes an aching pain along the gluteal region. No radicular symptoms down the legs. Patient states that after a dose of Dilaudid last night her pain today has improved. Case discussed with Dr. Amy Erickson Pain Assessment Full Body Front + Back: 1. Allergies Allergy/AdvReac Type Severity Reaction Status Date / Time latex Allergy Mild contact Verified 09/05/20 12:45 dermatitis Sulfa (Sulfonamide Allergy Mild RASH Verified 09/05/20 12:45 Antibiotics) nickel Allergy Unknown contact Verified 09/05/20 12:45 dermatitis Home Medications Home Medications Medication Instructions Recorded Confirmed Type acetaminophen 500 mg tablet 1,000 mg PO Q6H PRN tab 07/27/18 09/05/20 History aspirin 81 mg tablet,delayed 81 mg PO DAILY 07/27/18 09/05/20 History release cholecalciferol (vitamin D3) 50 2,000 units PO QAM 07/27/18 09/05/20 History mcg (2,000 unit) capsule krill oil 500 mg capsule 500 mg PO QAM cap 06/29/19 09/05/20 History fluticasone propionate 50 2 sprays INTNAS DAILY PRN #47.4 gm 07/25/19 09/05/20 Rx mcg/actuation nasal spray,suspension ferrous sulfate 325 mg (65 mg 325 mg PO QAM 07/11/20 09/05/20 History iron) tablet calcium carbonate-vitamin D3 1 tab PO QAM 08/21/20 09/05/20 History duloxetine [Cymbalta] 120 mg PO QAM 08/21/20 09/05/20 History gabapentin [Neurontin] 200 mg PO HS 08/21/20 09/05/20 History multivitamin 2 tab PO QAM 08/21/20 09/05/20 History trazodone 50 mg PO HS PRN 08/21/20 09/05/20 History cefdinir 300 mg PO BID 11 Days #22 cap 08/31/20 09/05/20 Rx furosemide 20 mg PO DAILY PRN #10 tab 08/31/20 09/05/20 Rx hydrocodone-acetaminophen [[place]] 1 tab PO Q6 PRN #10 tab 08/31/20 09/05/20 Rx lidocaine 1 patch TRANSDERMAL QAM #1 ea 08/31/20 09/05/20 Rx lidocaine 2 patch TRANSDERMAL QAM #1 ea 08/31/20 09/05/20 Rx polyethylene glycol 3350 [Miralax] 17 g PO DAILY #30 ea 08/31/20 09/05/20 Rx sennosides-docusate sodium 1 tab PO QAM #30 tab 08/31/20 09/05/20 Rx [Senokot-S] cyclobenzaprine [Flexeril] 5 mg PO TID PRN 09/05/20 09/05/20 History docusate sodium 100 mg PO BID 09/05/20 09/05/20 History heparin (porcine) 5,000 unit SUBCUT Q12H 09/05/20 09/05/20 History ipratropium-albuterol [Combivent 1 puff INHALATION QID PRN 09/05/20 09/05/20 History Respimat] loratadine [Claritin] 10 mg PO DAILY 09/05/20 09/05/20 History mecobal-levomefolat Ca-B6 phos 1 tab PO DAILY 09/05/20 09/05/20 History [Foltanx] melatonin 6 mg PO HS PRN 09/05/20 09/05/20 History pantoprazole 40 mg PO DAILYBB 09/05/20 09/05/20 History potassium chloride 10 meq PO BID 09/05/20 09/05/20 History Patient History Medical History Acute hypoxemic respiratory failure Anemia Anxiety Atherosclerosis of aorta Bacteremia due to Gram-negative bacteria Chronic pain syndrome Degenerative disc disease Depression DVT (deep venous thrombosis) possibly, treated inpatient directly following knee replacement. no problems since. Emphysema of lung Noted on chest CTs but not reported by patient. Follicular lymphoma currently monitoring and treating with Dr Moseley (oncology). To have port placed for chemo by Dr Chow 09/17/20 Gastroesophageal reflux disease Gram-negative bacteremia Hyperlipidemia Hypertension Lumbar canal stenosis Mild aortic regurgitation Moderate aortic stenosis Moderate mitral regurgitation Myofascial pain Osteoarthritis Peripheral edema Currently, L >R, 2/2 lymphoma. Wearing compression socks. Persistent insomnia Piriformis syndrome Post laminectomy syndrome Presence of intrathecal pump Urinary tract infection currently finishing abx (08/21/20). not recurrent infections typically Surgical History H/O cataract removal with insertion of prosthetic lens bilateral History of cholecystectomy 1978 History of colonoscopy History of knee replacement procedure of right knee 2002 History of laminectomy lumbar ~2013 Previous back surgery 2006,2007,2013 S/P hip replacement bilateral 2015, 2016 Status post laminectomy with spinal fusion lumbar, 2007 & 2008 Family History Father Abdominal aneurysm Colorectal cancer Grandmother (Paternal) Cancer Other No family history of adverse response to anesthesia Denies family history of Ovarian cancer Prostate cancer Myocardial infarction Breast cancer Social History Smoking Status: Never smoker Second Hand Exposure: No; Hx Substance Use: No Preferred Language: Greenlandic Communication Ability: Effective Visual Impairment: Limited Hearing Ability: Normal Stitching Department Supervisor Required: No Beliefs That Will Affect Care: None marital status: / Current Living Situation: Alone current occupational status: retired Feels Safe at Home: Yes Childhood Exposure to Second-Hand Smoke: Yes caffeine: Yes Dental Care, Regularly: No Physical Activity Frequency: Does not Exercise Seatbelt Use: always Sunscreen Use: Yes Assistive Devices: Walker Physical Exam Physical Exam: GENERAL: This is a 75 year old female that does not appear in any acute distress. HEAD/FACE: Normocephalic and atraumatic. EYES: No drainage or conjunctival injection. RESPIRATORY: Patient with unlabored breathing. No signs of respiratory distress. CHEST/AXILLA: Chest movement symmetrical. No deformities noted. ABDOMEN/GI: No distension BACK: Loss of lumbar lordosis. There is no thoracic or lumbar tenderness. Mild tenderness along the superior gluteal musculature without trigger points noted. SKIN: [place], warm and dry. No rash noted. MS/EXTREMITY: +2 non pitting edema of the lower extremities. Moving extremities appropriately. NEURO: Alert and appears oriented. Speech is fluent. Cranial Nerves are grossly intact. PSYCH: Alert, pleasant, affect is calm Results (Pain Clinic) Diagnostic Review CT Findings: CT abd pelvis IV con only CLINICAL HISTORY: back/buttock pain; recent urosepsis; WBC 9->24 COMPARISON STUDY: 08/26/2020 TECHNIQUE: The patient was scanned in a dynamic helical fashion during intravenous administration of 94 cc of Optiray 320. A dose lowering technique was utilized adhering to the principles of ALARA. CT DOSE: 919.29 mGycm FINDINGS: Lower chest: There is aneurysmal dilatation of the ascending thoracic aorta which measures 46 mm. There is a small right pleural effusion. There is pulmonary emphysema. There are right basilar airspace opacities likely atelectatic. Liver: There is mild central biliary ductal dilatation. This remains unchanged. Gallbladder: Surgically absent Spleen: Normal in size and attenuation. Pancreas: Unremarkable. Adrenal glands: There is a stable 2 cm left adrenal nodule. Kidneys: There are bilateral renal hypodensities, likely representing cysts. There is minimal fullness of both renal collecting system similar to the prior study. There is no ureteral dilatation. Bowel: There are no transition zones to indicate bowel obstruction. There are scattered colonic air-fluid levels. There is no evidence of acute appendicitis. Peritoneum: There is trace perihepatic fluid. There is no significant pelvic ascites although the pelvis is partially obscured due to bilateral hip arthroplasties. Vasculature: The abdominal aorta is normal in course and caliber. Adenopathy: There is stable mild aortocaval and iliac chain adenopathy. Pelvic viscera: The patient appears be status post a prior hysterectomy Skeletal structures: There is an intraspinal catheter present. There are postsurgical changes of bilateral hip arthroplasties. There are postsurgical ch anges within the spine consisting of posterior laminectomies with L3-L5 spinal fusion with pedicle screws and rods. There are stable erosive changes involving the inferior L5 endplate and superior S1 endplate. There is stable gas within the L5-S1 disc. IMPRESSION: 1. No evidence of bowel obstruction. No evidence of free air 2. Small right pleural effusion 3. Trace perihepatic ascites 4. Stable mild intrahepatic biliary ductal dilatation 5. Stable aneurysmal dilatation of the ascending thoracic aorta which measures 46 mm. 6. Emphysema 7. Colonic air-fluid levels. This can be seen in normals as well as in patients with a diarrheal illness 8. Stable 2 cm left adrenal nodule 9. Stable mild aortocaval and iliac chain adenopathy. 10. Stable postsurgical changes within the lumbar spine. Stable erosive changes involving the L5-S1 endplates.
[2020-09-06] MEDS: DULoxetine HCL 60 MG CAP PO SCH (08:42)
[2020-09-06] MEDS: FERROUS SULFATE 325 MG TAB PO SCH (08:42)
[2020-09-06] MEDS: DOCUSATE SODIUM/SENNA 50/8.6MG TAB PO SCH ×2 (08:42→09:07)
[2020-09-06] MEDS: CHOLECALCIFEROL 1,000 UNITS 25 MCG TAB PO SCH (08:42)
[2020-09-06] MEDS: MULTIVITAMIN TAB PO SCH (08:43)
[2020-09-06] MEDS: POTASSIUM CHLORIDE 10 MEQ TABCR PO SCH ×2 (08:43→21:07)
[2020-09-06] MEDS: LORATADINE 10 MG TAB PO SCH (08:43)
[2020-09-06] MEDS: POLYETHYLENE (MIRALAX) 17 GM PACK PO SCH ×2 (08:44→09:07)
[2020-09-06] MEDS: ASPIRIN 81 MG ECTAB PO SCH (08:44)
[2020-09-06] MEDS: CALCIUM 600MG + VIT D 400 IU TAB PO SCH (08:44)
[2020-09-06] MEDS: DOCUSATE SODIUM 100 MG CAP PO SCH ×3 (08:44→21:04)
[2020-09-06] MEDS: CYCLOBENZAPRINE HCL 10 MG TAB PO SCH ×3 (08:51→21:05)
[2020-09-06] MEDS ORDERED: [UNRECOGNIZED DRUG - OTHER] PO SCH (09:00)
[2020-09-06] MEDS ORDERED: LIDOCAINE 5% 1 PATCH TD SCH ×2 (09:00)
[2020-09-06] MEDS: HEPARIN SOD 5,000 UNIT/0.5 ML VIAL SQ SCH ×2 (09:01→21:05)
[2020-09-06] MEDS: HYDROCODONE/ACETAMOPHEN 5/325MG TAB PO PRN ×2 (12:12→21:09)
[2020-09-06] MEDS: HYDROmorphone INJ 0.5 MG/0.5 ML SYR IV PRN ×2 (16:47→23:41)
[2020-09-06] MEDS: GABAPENTIN 100 MG CAP PO SCH (21:08)
--- NOTE | 2020-09-06 21:40 | Hospitalist Progress Note ---
Date of Service September 06, 2020 Assessment & Plan (1) Leukocytosis: Patient has an elevated white count of 24,000 in association with an elevated procalcitonin Patient has a Battery pack of the anterior left abdominal wall, with history of a laminectomy with posterior interbody francisco javier and screw fusion and discectomy changes at L3-L5. She was recentedly treated for Urosepsis and was hospitalized for septic shock. She was discharged on cefdinir to treat baceremia: E. Coli. However, she was reported to have fever at [facility] She is currently afebrile, however she did have a fever over night. She was on cefdinir as an outpatient since her discharge 08/31/2020 She received daptomycin and Zosyn in the emergency department and was beyer- cultured for urine and blood Her WBC have improved and her vital signs as well. Will consult ID to discuss discharge plan with patient. At this time, it is likely an infectious cause, given fever, and elevated WBC. Also WBC improving with antibiotics. Will monitor. Updated daughter. (2) Elevated procalcitonin: (3) Follicular lymphoma: (4) Post laminectomy syndrome: (5) Hypertension: (6) Gastroesophageal reflux disease: (7) Impaired fasting glucose: (8) Moderate aortic stenosis: (9) DVT prophylaxis: Admission and Anticipated Discharge Date Admission Date: September 05, 2020 Subjective 75 yo female reports feeling better today. She currently has no new symptoms. Review of Systems Review of Systems: All systems reviewed & are unremarkable except as noted in HPI & below Physical Exam Physical Exam: GENERAL : No acute distress. Pleasant. No evidence of conversational dyspnea EYES: No icterus, gaze conjugate. Lenses from cataract repair evident. NOSE: No evidence of epistaxis MOUTH: No lesions or candidiasis. Tongue is midline. No facial droop NECK: Supple. No carotid bruits or stridor appreciated LUNGS: CTA B/L, no wheezes, rales or rhonchi. Good inspiratory effort HEART: Regular, rate controlled. Harsh grade 3/6 holistic murmur over the aortic valve. ABDOMEN: Soft, NT, ND, BS Present. Intrathecal pump site examined. No evidence of tenderness or erythema around the pump. There are some areas of punctate hemorrhage secondary to subcutaneous heparin injections. No evidence of excoriation or open sores on the abdomen. EXTREMITIES: +3 bilateral pitting LE edema, pedal pulses intact and equal bilaterally NEURO: A&OX3. No facial droop. Results & Data Results & Data ([facility]) Vital Signs (Past 12 Hours) Vital Signs Temp Pulse Resp BP Pulse Ox 09/06/20 15:35 37.3 C 88 16 111/64 90 09/06/20 11:23 36.6 C 88 18 160/89 H 92 PG Care Time/CCT Total # of Minutes Spent Total Time Spent with Patient: Total time spent is greater than 50% in coordination of care (as documented) at patient's floor/unit and/or counseling patient: Coding Level of Care Code 36514 Subseq Hosp Care Lvl 3 Diagnoses Leukocytosis D72.829 Elevated procalcitonin R79.89 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 Follicular lymphoma type: unspecified follicular type Lymphoma site: unspecified region Post laminectomy syndrome M96.1 Hypertension I10 Hypertension type: essential hypertension Gastroesophageal reflux disease K21.9 Impaired fasting glucose R73.01 Moderate aortic stenosis I35.0 DVT prophylaxis Z29.9 Time Spent (min) 35 (1) Follicular lymphoma Follicular lymphoma type: unspecified follicular type Lymphoma site: unspecified region Qualified Code(s): C82.90 - Follicular lymphoma, unspecifie d, unspecified site (2) Hypertension Hypertension type: essential hypertension Qualified Code(s): I10 - Essential (primary) hypertension
[2020-09-07] MEDS: PIPERACILLIN/TAZOBACTAM 3.375 GM in DEXTROSE 5% 100 ML IV SCH ×3 (03:38→19:35)
[2020-09-07] MEDS: HYDROCODONE/ACETAMOPHEN 5/325MG TAB PO PRN (03:38)
[2020-09-07] MEDS: PANTOprazole 40 MG TAB PO SCH (05:48)
[2020-09-07] MEDS: HYDROmorphone INJ 0.5 MG/0.5 ML SYR IV PRN ×3 (05:49→14:24)
[2020-09-07 07:12] LABS: Basophils # (auto) 0.01 K/uL (0-0.2); Basophils % (auto) 0.1 %; Eosinophils # (auto) 0.06 K/uL (0-0.5); Eosinophils % (auto) 0.5 %; Hemoglobin 9.1 g/dL (12.0-16.0); Immature Granulocytes # (auto) 0.06 K/uL (0.00-0.02); Immature Granulocytes % (auto) 0.5 %; Lymphocytes # (auto) 0.99 K/uL (1.2-3.4); Lymphocytes % (auto) 8.1 %; Mean Corpuscular Hemoglobin 27.1 pg (25-34); Mean Corpuscular Hgb Conc 31.4 g/dL (32-36); Mean Corpuscular Volume 86.3 fL (80-100); Mean Platelet Volume 9.1 fL (7.4-10.4); Monocytes # (auto) 0.95 K/uL (0.11-0.59); Monocytes % (auto) 7.8 %; Neutrophils # (auto) 10.15 K/uL (1.4-6.5); Platelet Count 519 K/uL (130-400); RDW Coefficient of Variation 14.8 % (11.5-14.5); RDW Standard Deviation 46.1 fL (36.4-46.3); Red Blood Count 3.36 M/uL (4.2-5.4); White Blood Count 12.22 K/uL (4.8-10.8)
[2020-09-07 07:35] LABS: BUN Creatinine Ratio 18.4 (10-20); Calcium 9.4 mg/dl (8.5-10.1); Creatinine Clr Calc Pharmacy 60.2 ml/min; Est GFR (African American) 71.1; Est GFR (Non-African American) 61.3
[2020-09-07] MEDS: FERROUS SULFATE 325 MG TAB PO SCH (07:58)
[2020-09-07] MEDS: DULoxetine HCL 60 MG CAP PO SCH (07:58)
[2020-09-07] MEDS: CHOLECALCIFEROL 1,000 UNITS 25 MCG TAB PO SCH (07:58)
[2020-09-07] MEDS: MULTIVITAMIN TAB PO SCH (07:58)
[2020-09-07] MEDS: DOCUSATE SODIUM/SENNA 50/8.6MG TAB PO SCH (07:58)
[2020-09-07] MEDS: LORATADINE 10 MG TAB PO SCH (07:59)
[2020-09-07] MEDS: CYCLOBENZAPRINE HCL 10 MG TAB PO SCH ×3 (07:59→20:09)
[2020-09-07] MEDS: POLYETHYLENE (MIRALAX) 17 GM PACK PO SCH (07:59)
[2020-09-07] MEDS: CALCIUM 600MG + VIT D 400 IU TAB PO SCH (07:59)
[2020-09-07] MEDS: ASPIRIN 81 MG ECTAB PO SCH (07:59)
[2020-09-07] MEDS: HEPARIN SOD 5,000 UNIT/0.5 ML VIAL SQ SCH ×2 (08:00→20:07)
[2020-09-07] MEDS: DOCUSATE SODIUM 100 MG CAP PO SCH ×2 (08:01→20:08)
[2020-09-07] MEDS: POTASSIUM CHLORIDE 10 MEQ TABCR PO SCH ×2 (08:02→20:08)
[2020-09-07] MEDS ORDERED: HYDROmorphone INJ 0.5 MG/0.5 ML SYR IV PRN (08:43)
[2020-09-07] MEDS: oxyCODONE/ACETAMINOPHEN 5mg/325mg TAB PO PRN ×2 (10:06→18:26)
--- NOTE | 2020-09-07 10:58 | Pain Management Progress Note ---
Date of Service September 07, 2020 Assessment & Plan (1) Presence of intrathecal pump: (2) Post laminectomy syndrome: (3) Acute exacerbation of chronic low back pain: * Have has switched hydrocodone to Percocet 5/325 mg every 4 hours as needed. * Flexeril will remain scheduled at 10 mg 3 times daily. * Not a candidate for interventional procedures at this time. * I have decreased the IV Dilaudid to 0.5 mg every 8 hours if needed for breakthrough pain. * She is understanding that the goal is to discontinue the IV Dilaudid to be discharged back to [facility] for rehab. * No changes are to be made to the intrathecal pump. Admission and Anticipated Discharge Date Admission Date: September 05, 2020 Subjective Mrs. Henry states that her low back pain has not been well controlled last night and this morning. She does have Flexeril 10 mg 3 times daily, hydrocodone 5/325 mg every 6 hours, and hydromorphone 0.5 mg IV every 2 hours ordered. She did not find the hydrocodone to be efficacious towards diminishing her pain. She did take 3 tablets of the last 24 hours. The IV Dilaudid does provide adequate pain relief. She has utilized 2 mg of IV Dilaudid over the last 24 hours. Patient does continue to describe an aching pain in the lower lumbar and into the buttock region. No radicular symptoms. Pain Assessment Pain Assessment Full Body Front + Back: 1. Physical Exam Physical Exam: GENERAL: This is a 75 year old female that does not appear in any acute distress. BACK: Loss of lumbar lordosis. There is no thoracic or lumbar tenderness. No myofascial spasm or trigger points noted. SKIN: [place], warm and dry. No rash noted. MS/EXTREMITY: +2 non pitting edema of the lower extremities. Moving extremities appropriately. NEURO: Alert and appears oriented. Speech is fluent. Cranial Nerves are grossly intact. PSYCH: Alert, pleasant, affect is calm
[2020-09-07] MEDS: KETOROLAC TROMETHAMINE 15 MG/ML VIAL IV PRN (16:13)
[2020-09-07] MEDS: GABAPENTIN 100 MG CAP PO SCH (20:08)
--- NOTE | 2020-09-07 22:58 | Hospitalist Progress Note ---
Date of Service September 07, 2020 Assessment & Plan (1) Leukocytosis: Patient has an elevated white count of 24,000 in association with an elevated procalcitonin Patient has a Battery pack of the anterior left abdominal wall, with history of a laminectomy with posterior interbody francisco javier and screw fusion and discectomy changes at L3-L5. She was recentedly treated for Urosepsis and was hospitalized for septic shock. She was discharged on cefdinir to treat bacteremia: E. Coli. However, she was reported to have fever at [facility] She is currently afebrile,she only had fever on admission but since she has been afebrile. She was on cefdinir as an outpatient since her discharge 08/31/2020 She received daptomycin and Zosyn in the emergency department and was beyer- cultured for urine and blood. Currently on zosyn. Awaiting input from ID. At this time, it is likely an infectious cause, given fever, and elevated WBC. Also WBC improving with antibiotics, however unsure of her source. Updated daughter. (2) Elevated procalcitonin: Patient discharged from [facility] on 1023 after being treated for urosepsis On 08/29/2020 the patient's procalcitonin was 65.55 While procalcitonin could still be trending down from that admission, it is noted the patient has severe leukocytosis At this point will treat with antibiotics and follow while awaiting beyer culture results (3) Follicular lymphoma: Follows with the cancer care [place] Dr. Verde saw the patient the last admission Patient was to see him as an outpatient for further plan Inasmuch as patient again has elevated white count with suspicion for infection, we will not consult oncology at this time Patient to follow-up outpatient on discharge (4) Post laminectomy syndrome: Difficult to differentiate between acute and chronic pain Patient does have an intrathecal pump Was scheduled to be replaced 09/03/2020. This was canceled secondary to urosepsis Due to increased pain at this time, we will not add any significant pain meds and will ask pain management to see the patient tomorrow Patient did receive 60 mg of IV methylprednisolone in the emergency department. We will hold off on any additional steroids Continue Cymbalta for depression as well as pain modulation We will also continue as needed tramadol, gabapentin, and [place] at home dose levels (5) Hypertension: Blood pressure currently well controlled at 119/66 Patient does not appear to be on any outpatient antihypertensives We will follow vital signs per protocol (6) Gastroesophageal reflux disease: Continue pantoprazole 40 mg p.o. daily (7) Impaired fasting glucose: Hemoglobin A1c July 2020 was 5.2% Will not start sliding scale insulin We will place the patient on a diabetic/heart healthy diet (8) Moderate aortic stenosis: Watch ins and outs (9) DVT prophylaxis: Heparin 5000 units subcutaneously every 12 hours Ambulate as tolerated Out of bed to chair as tolerated Admission and Anticipated Discharge Date Admission Date: September 07, 2020 Subjective 75 yo female reports her pain is not controlled. Daughter is at bedside and is updated. Review of Systems Review of Systems: All systems reviewed & are unremarkable except as noted in HPI & below Physical Exam Physical Exam: GENERAL : No acute distress. Pleasant. No evidence of conversational dyspnea EYES: No icterus, gaze conjugate. Lenses from cataract repair evident. NOSE: No evidence of epistaxis MOUTH: No lesions or candidiasis. Tongue is midline. No facial droop NECK: Supple. No carotid bruits or stridor appreciated LUNGS: CTA B/L, no wheezes, rales or rhonchi. Good inspiratory effort HEART: Regular, rate controlled. Harsh grade 3/6 holistic murmur over the aortic valve. ABDOMEN: Soft, NT, ND, BS Present. Intrathecal pump site examined. No evidence of tenderness or erythema around the pump. There are some areas of punctate hemorrhage secondary to subcutaneous heparin injections. No evidence of excoriation or open sores on the abdomen. EXTREMITIES: +3 bilateral pitting LE edema, pedal pulses intact and equal bilate [place] NEURO: A&OX3. No facial droop. Results & Data Results & Data ([facility]) Vital Signs (Past 12 Hours) Vital Signs Temp Pulse Resp BP Pulse Ox 09/07/20 16:46 36.6 C 110 H 16 102/64 89 L PG Care Time/CCT Total # of Minutes Spent Total Time Spent with Patient: Total time spent is greater than 50% in coordination of care (as documented) at patient's floor/unit and/or counseling patient: Coding Level of Care Code 98236 Subseq Hosp Care Lvl 3 Diagnoses Leukocytosis D72.829 Elevated procalcitonin R79.89 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 Follicular lymphoma type: unspecified follicular type Lymphoma site: unspecified region Post laminectomy syndrome M96.1 Hypertension I10 Hypertension type: essential hypertension Gastroesophageal reflux disease K21.9 Impaired fasting glucose R73.01 Moderate aortic stenosis I35.0 DVT prophylaxis Z29.9 Time Spent (min) 35 (1) Follicular lymphoma Follicular lymphoma type: unspecified follicular type Lymphoma site: unspecified region Qualified Code(s): C82.90 - Follicular lymphoma, unspecified, unspecified site (2) Hypertension Hypertension type: essential hypertension Qualified Code(s): I10 - Essential (primary) hypertension
[2020-09-08] MEDS: KETOROLAC TROMETHAMINE 15 MG/ML VIAL IV PRN ×3 (00:31→18:06)
[2020-09-08] MEDS: oxyCODONE/ACETAMINOPHEN 5mg/325mg TAB PO PRN ×3 (00:37→18:13)
[2020-09-08] MEDS: MELATONIN 3 MG TAB PO PRN (00:39)
[2020-09-08] MEDS: traZODone HCL 50 MG TAB PO PRN (00:39)
[2020-09-08] MEDS: PIPERACILLIN/TAZOBACTAM 3.375 GM in DEXTROSE 5% 100 ML IV SCH ×3 (03:50→20:14)
[2020-09-08] MEDS: PANTOprazole 40 MG TAB PO SCH (05:03)
[2020-09-08 07:46] LABS: Eosinophils # (auto) 0.08 K/uL (0-0.5); Hematocrit (blood only) 23.5 % (37-47); Hemoglobin 7.4 g/dL (12.0-16.0); Immature Granulocytes # (auto) 0.04 K/uL (0.00-0.02); Immature Granulocytes % (auto) 0.5 %; Lymphocytes # (auto) 0.66 K/uL (1.2-3.4); Lymphocytes % (auto) 8.1 %; Mean Corpuscular Hemoglobin 27.2 pg (25-34); Mean Corpuscular Hgb Conc 31.5 g/dL (32-36); Mean Corpuscular Volume 86.4 fL (80-100); Mean Platelet Volume 8.9 fL (7.4-10.4); Monocytes % (auto) 8.6 %; Neutrophils # (auto) 6.67 K/uL (1.4-6.5); Neutrophils % (auto) 81.8 %; Platelet Count 446 K/uL (130-400); RDW Coefficient of Variation 14.9 % (11.5-14.5); RDW Standard Deviation 45.9 fL (36.4-46.3); Red Blood Count 2.72 M/uL (4.2-5.4); White Blood Count 8.15 K/uL (4.8-10.8)
[2020-09-08 08:16] LABS: BUN Creatinine Ratio 17.9 (10-20); Calcium 8.9 mg/dl (8.5-10.1); Creatinine Clr Calc Pharmacy 59.6 ml/min; Est GFR (African American) 70.2; Est GFR (Non-African American) 60.5; Potassium 4.1 mmol/L (3.5-5.1)
[2020-09-08 08:25] LABS: RBC Morphology Unremarkable
[2020-09-08] MEDS: MULTIVITAMIN TAB PO SCH (08:41)
[2020-09-08] MEDS: FERROUS SULFATE 325 MG TAB PO SCH (08:41)
[2020-09-08] MEDS: GABAPENTIN 100 MG CAP PO SCH ×2 (08:42→20:20)
[2020-09-08] MEDS: DULoxetine HCL 60 MG CAP PO SCH (08:43)
[2020-09-08] MEDS: ASPIRIN 81 MG ECTAB PO SCH (08:43)
[2020-09-08] MEDS: CHOLECALCIFEROL 1,000 UNITS 25 MCG TAB PO SCH (08:43)
[2020-09-08] MEDS: LORATADINE 10 MG TAB PO SCH (08:44)
[2020-09-08] MEDS: POTASSIUM CHLORIDE 10 MEQ TABCR PO SCH ×2 (08:44→20:17)
[2020-09-08] MEDS: CYCLOBENZAPRINE HCL 10 MG TAB PO SCH ×3 (08:44→20:19)
[2020-09-08] MEDS: DOCUSATE SODIUM 100 MG CAP PO SCH ×2 (08:44→20:19)
[2020-09-08] MEDS: DOCUSATE SODIUM/SENNA 50/8.6MG TAB PO SCH (08:45)
[2020-09-08] MEDS: CALCIUM 600MG + VIT D 400 IU TAB PO SCH (08:45)
[2020-09-08] MEDS: POLYETHYLENE (MIRALAX) 17 GM PACK PO SCH (08:46)
[2020-09-08] MEDS: HEPARIN SOD 5,000 UNIT/0.5 ML VIAL SQ SCH ×2 (08:46→20:21)
[2020-09-08 15:07] LABS: Hematocrit (blood only) 25.9 % (37-47); Hemoglobin 8.3 g/dL (12.0-16.0)
--- NOTE | 2020-09-08 22:29 | Hospitalist Progress Note ---
Date of Service September 08, 2020 Assessment & Plan (1) Leukocytosis: Patient has an elevated white count of 24,000 in association with an elevated procalcitonin Patient has a Battery pack of the anterior left abdominal wall, with history of a laminectomy with posterior interbody francisco javier and screw fusion and discectomy changes at L3-L5. She was recentedly treated for Urosepsis and was hospitalized for septic shock. She was discharged on cefdinir to treat bacteremia: E. Coli. However, she was reported to have fever at [facility] She is currently afebrile,she only had fever on admission but since she has been afebrile. She was on cefdinir as an outpatient since her discharge 08/31/2020 She received daptomycin (only one dose) and Zosyn in the emergency department and was beyer-cultured for urine and blood. Currently on zosyn and her WBC has normalized and patient has had no fevers since. Consulted ID and do not feel we need to treat urine culture as patient is improving. Will continue with antibiotics until Thursday and then will stop and monitor her symptoms. At this time, it is likely an infectious cause, given fever, and elevated WBC, however the source cannot be determined. Patient is transferred to isolation room for VRE, however will consider this asymptomatic bacteruria. Updated daughter. (2) Anemia: Unsure of cause. Patient did require 1 PRBC in previous hospital stay, will consult GI for possible endoscopy. will obtain FOBT, and check iron studies in AM. (3) Elevated procalcitonin: Patient discharged from [facility] on 1023 after being treated for urosepsis On 08/29/2020 the patient's procalcitonin was 65.55 While procalcitonin could still be trending down from that admission, it is noted the patient has severe leukocytosis At this point will treat with antibiotics and follow while awaiting beyer culture results (4) Follicular lymphoma: Follows with the cancer care [place] Dr. Verde saw the patient the last admission Patient was to see him as an outpatient for further plan Inasmuch as patient again has elevated white count with suspicion for infection, we will not consult oncology at this time Patient to follow-up outpatient on discharge (5) Post laminectomy syndrome: Difficult to differentiate between acute and chronic pain Patient does have an intrathecal pump Was scheduled to be replaced 09/03/2020. This was canceled secondary to urosepsis Due to increased pain at this time, we will not add any significant pain meds and will ask pain management to see the patient tomorrow Patient did receive 60 mg of IV methylprednisolone in the emergency department. We will hold off on any additional steroids Continue Cymbalta for depression as well as pain modulation We will also continue as needed tramadol, gabapentin, and [place] at home dose levels Pain is now better controlled with adding NSAID, with PPI to prevent any GI issues. Despite this Hemoglobin has been decreasing, will closely monitor. (6) Hypertension: Blood pressure currently well controlled at 119/66 Patient does not appear to be on any outpatient antihypertensives We will follow vital signs per protocol (7) Gastroesophageal reflux disease: Continue pantoprazole 40 mg p.o. daily (8) Impaired fasting glucose: Hemoglobin A1c July 2020 was 5.2% Will not start sliding scale insulin We will place the patient on a diabetic/heart healthy diet (9) Moderate aortic stenosis: Watch ins and outs (10) DVT prophylaxis: Heparin 5000 units subcutaneously every 12 hours Ambulate as tolerated Out of bed to chair as tolerated Admission and Anticipated Discharge Date Admission Date: September 07, 2020 Subjective 75 yo female actually is reporting feeling much better today. Her pain is better controlled. Her daughter is at bedside and is updated. Review of Systems Review of Systems: All systems reviewed & are unremarkable except as noted in HPI & below Physical Exam Physical Exam: GENERAL : No acute distress. Pleasant. No evidence of conversational dyspnea EYES: No icterus, gaze conjugate. Lenses from cataract repair evident. NOSE: No evidence of epistaxis MOUTH: No lesions or candidiasis. Tongue is midline. No facial droop NECK: Supple. No carotid bruits or stridor appreciated LUNGS: CTA B/L, no wheezes, rales or rhonchi. Good inspiratory effort HEART: Regular, rate controlled. Harsh grade 3/6 holistic murmur over the aortic valve. ABDOMEN: Soft, NT, ND, BS Present. Intrathecal pump site examined. No evidence of tenderness or erythema around the pump. injections. No evidence of excoriation or open sores on the abdomen. EXTREMITIES: +3 bilateral pitting LE edema, pedal pulses intact and equal bilaterally NEURO: A&OX3. No facial droop. Results & Data Results & Data ([facility]) Vital Signs (Past 12 Hours) Vital Signs Temp Pulse Resp BP Pulse Ox 10/31/20 15:25 37.5 C 93 H 18 97/61 L 96 PG Care Time/CCT Total # of Minutes Spent Total Time Spent with Patient: Total time spent is greater than 50% in coordination of care (as documented) at patient's floor/unit and/or counseling patient: Coding Level of Care Code 12021 Subseq Hosp Care Lvl 3 Diagnoses Leukocytosis D72.829 Anemia D64.9 Elevated procalcitonin R79.89 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 Follicular lymphoma type: unspecified follicular type Lymphoma site: unspecified region Post laminectomy syndrome M96.1 Hypertension I10 Hypertension type: essential hypertension Gastroesophageal reflux disease K21.9 Impaired fasting glucose R73.01 Moderate aortic stenosis I35.0 DVT prophylaxis Z29.9 Time Spent (min) 40 (1) Follicular lymphoma Follicular lymphoma type: unspecified follicular type Lymphoma site: unspecified region Qualified Code(s): C82.90 - Follicular lymphoma, unspecified, unspecified site (2) Hypertension Hypertension type: essential hypertension Qualified Code(s): I10 - Essential (primary) hypertension
[2020-09-09] MEDS: oxyCODONE/ACETAMINOPHEN 5mg/325mg TAB PO PRN ×3 (01:50→13:58)
[2020-09-09] MEDS: ACETAMINOPHEN 500 MG TAB PO PRN ×2 (04:31→16:15)
[2020-09-09] MEDS: PANTOprazole 40 MG TAB PO SCH (04:55)
[2020-09-09] MEDS: PIPERACILLIN/TAZOBACTAM 3.375 GM in DEXTROSE 5% 100 ML IV SCH ×3 (04:55→20:01)
[2020-09-09] MEDS: CALCIUM 600MG + VIT D 400 IU TAB PO SCH (08:47)
[2020-09-09] MEDS: DOCUSATE SODIUM 100 MG CAP PO SCH ×2 (08:47→20:05)
[2020-09-09] MEDS: LORATADINE 10 MG TAB PO SCH (08:47)
[2020-09-09] MEDS: DULoxetine HCL 60 MG CAP PO SCH (08:47)
[2020-09-09] MEDS: ASPIRIN 81 MG ECTAB PO SCH (08:48)
[2020-09-09] MEDS: FERROUS SULFATE 325 MG TAB PO SCH (08:48)
[2020-09-09] MEDS: CYCLOBENZAPRINE HCL 10 MG TAB PO SCH ×3 (08:48→20:33)
[2020-09-09] MEDS: POLYETHYLENE (MIRALAX) 17 GM PACK PO SCH (08:49)
[2020-09-09] MEDS: POTASSIUM CHLORIDE 10 MEQ TABCR PO SCH ×2 (08:49→20:31)
[2020-09-09] MEDS: HEPARIN SOD 5,000 UNIT/0.5 ML VIAL SQ SCH ×2 (08:49→20:30)
[2020-09-09] MEDS: GABAPENTIN 100 MG CAP PO SCH ×2 (08:50→20:30)
[2020-09-09] MEDS: CHOLECALCIFEROL 1,000 UNITS 25 MCG TAB PO SCH (08:50)
[2020-09-09] MEDS: DOCUSATE SODIUM/SENNA 50/8.6MG TAB PO SCH (08:50)
[2020-09-09] MEDS: MULTIVITAMIN TAB PO SCH (08:50)
[2020-09-09 10:47] LABS: Hemoglobin 8.2 g/dL (12.0-16.0); Mean Corpuscular Hemoglobin 27.4 pg (25-34); Mean Corpuscular Hgb Conc 31.5 g/dL (32-36); Mean Platelet Volume 8.4 fL (7.4-10.4); Platelet Count 473 K/uL (130-400); RDW Standard Deviation 46.9 fL (36.4-46.3); Red Blood Count 2.99 M/uL (4.2-5.4); White Blood Count 6.56 K/uL (4.8-10.8)
[2020-09-09 11:13] LABS: Calcium 9.2 mg/dl (8.5-10.1); Est GFR (African American) 79.4; Est GFR (Non-African American) 68.5; Potassium 4.1 mmol/L (3.5-5.1)
[2020-09-09 11:18] LABS: Ferritin 414.8 ng/ml (8-388)
--- NOTE | 2020-09-09 11:49 | Consultation Report ---
DATE OF CONSULTATION: 09/09/2020 GASTROINTESTINAL CONSULT NOTE REASON FOR EVALUATION: Anemia. HISTORY OF PRESENT ILLNESS: The patient is a 75-year-old hospitalized with leukocytosis and apparent urinary tract infection. Her leukocytosis is improving. The patient has been noted to be anemic, which she feels is chronic. She does take an oral iron pill daily, which makes her stools black. She has had no significant change in bowel movements recently or abdominal pain. Her anemia is normochromic normocytic. Of note is that her father of colon cancer. The patient reports that she has had at least 3 colonoscopies in the past, first one had polyps, but the subsequent ones were negative. She thinks her last colonoscopy was 2 years ago at the hospital, but I went back to 2016 and was not able to find any reports of a colonoscopy being done here. She does take a baby aspirin daily, but is also on a proton pump inhibitor in the form of pantoprazole daily for gastric protection. PAST MEDICAL HISTORY: Remarkable for follicular lymphoma diagnosed in an inguinal lymph node. She has not received treatment in the past and is being observed by her oncologist. The patient has had urinary tract infection. She has had laminectomy and has chronic pain and has an implanted pain pump in the left lower abdomen. She has hypertension. She has had a cholecystectomy and an appendectomy. She has moderate aortic stenosis. She has a mild aortic aneurysm and some emphysema. She has had a DVT following knee replacement. She also had a hip replacement. FAMILY HISTORY: Positive for colon cancer in her father and paternal grandmother. SOCIAL HISTORY: The patient is a , lives alone, does not smoke, does not drink any alcohol. REVIEW OF SYSTEMS: Positive for a little bit of nausea and some lower leg swelling. PHYSICAL EXAMINATION: GENERAL: The patient appears in no acute distress. She is awake, alert, and coherent. ABDOMEN: Shows a right upper quadrant scar. There are no masses or tenderness. EXTREMITIES: Showed edema in the lower legs bilaterally. LABORATORY DATA: Shows hemoglobin of 10.3, hematocrit 32.4, platelets are slightly elevated. IMPRESSION AND PLAN: The patient has anemia and has a history of follicular lymphoma. She did have a CT scan on admission that did not show any major abnormalities involving the bowel. She did have some abdominal lymph nodes present. I plan to check her stools for blood and if positive, we will consider evaluating her endoscopically. Right now she is hemodynamically stable and has a stable hemoglobin. We will decide on any further intervention based on the results of her stool Hemoccult.
[2020-09-09 17:13] LABS: Basophils # (auto) 0.01 K/uL (0-0.2); Basophils % (auto) 0.1 %; Eosinophils # (auto) 0.11 K/uL (0-0.5); Eosinophils % (auto) 1.6 %; Immature Granulocytes # (auto) 0.03 K/uL (0.00-0.02); Immature Granulocytes % (auto) 0.4 %; Lymphocytes # (auto) 0.41 K/uL (1.2-3.4); Lymphocytes % (auto) 6.1 %; Monocytes # (auto) 0.62 K/uL (0.11-0.59); Monocytes % (auto) 9.2 %; Neutrophils # (auto) 5.55 K/uL (1.4-6.5); Neutrophils % (auto) 82.6 %
--- NOTE | 2020-09-09 19:11 | XRay Report ---
XR chest 1V portable HISTORY: 75 years-old Female SOB acute shortness of breath COMPARISON: Chest radiograph and CT abdomen and pelvis 09/05/2020 TECHNIQUE: Portable AP view of the chest FINDINGS: Cardiac silhouette is enlarged, unchanged. Calcified plaque of the thoracic aortic arch. Chronic righ t hemidiaphragmatic elevation. Pulmonary vascular congestion with mild interstitial coarsening. Trace right pleural effusion. No pneumothorax or airspace consolidation typical for pneumonia. Degenerativ e changes of the shoulders and spine. Gaseous distention of the stomach. IMPRESSION: 1. Cardiomegaly with pulmonary vascular congestion and mild interstitial coarsening suggestive of pul monary edema. 2. Unchanged right diaphragmatic elevation. 3. Trace right pleural effusion. ACT 112: Negative or not required by law. The above report was generated using voice recognition software. It may contain grammatical, syntax o r spelling errors. Electronically signed by: Chaz Barajas M.D. 09/09/2020 7:10 PM
[2020-09-09 19:42] LABS: Appearance Urine Cloudy (Clear); Bilirubin Urine Negative (Negative); Blood Urine 1+ (Negative); Color Urine Yellow; Epithelial Cell Urine Auto >30 /lpf (0-5); Glucose Urine UA Negative (Negative); Ketones Urine Negative (Negative); Leukocyte Esterase Urine Negative (Negative); Nitrite Urine Negative (Negative); Protein Urine Negative (Negative); RBC Urine Automated 0-4 /hpf (0-4); Specific Gravity Urine 1.014 (1.000-1.030); Urobilinogen Urine Negative (Negative)
[2020-09-09 19:53] LABS: Amorphous Sediment Urine Present (None Prsent); Bacteria Urine Automated 1+ (Negative)
[2020-09-09] MEDS: KETOROLAC TROMETHAMINE 15 MG/ML VIAL IV PRN (20:31)
--- NOTE | 2020-09-09 22:30 | Hospitalist Progress Note ---
Date of Service September 09, 2020 Assessment & Plan (1) Leukocytosis: Patient has an elevated white count of 24,000 in association with an elevated procalcitonin Patient has a Battery pack of the anterior left abdominal wall, with history of a laminectomy with posterior interbody francisco javier and screw fusion and discectomy changes at L3-L5. She was recentedly treated for Urosepsis and was hospitalized for septic shock. She was discharged on cefdinir to treat bacteremia: E. Coli. However, she was reported to have fever at [facility] Prior to todays' fever she was afebrile,she only had fever on admission. She was on cefdinir as an outpatient since her discharge 08/31/2020 She received daptomycin (only one dose) and Zosyn in the emergency department and was beyer-cultured for urine and blood. Currently on zosyn and her WBC has normalized and patient has had no fevers since. Consulted ID and do not feel we need to treat urine culture as patient is improving. Called Dr. Schmidt who recommended to restart Daptomycin for he rfevers, however given her negative procal, lymphopenia, and possible cold like symptoms. I will order COVID testing first and biofire to rule out viral etiologies. Plan was to discontinue antibiotics if she remained afebrile on Thursday and monitor for 2 days, however will continue zosyn for now. Patient had been transferred to isolation room for VRE, however will consider this asymptomatic bacteruria. Updated daughter. (2) Anemia: Unsure of cause. Patient did require 1 PRBC in previous hospital stay, will consult GI for possible endoscopy. will obtain FOBT. Iron studies do not point towrds iron def. however ferritin may be elevated due to an inflammatory respsone. (3) Elevated procalcitonin: Patient discharged from [facility] on 1023 after being treated for urosepsis On 08/29/2020 the patient's procalcitonin was 65.55 While procalcitonin could still be trending down from that admission, it is noted the patient has severe leukocytosis At this point will treat with antibiotics and follow while awaiting beyer culture results (4) Follicular lymphoma: Follows with the cancer care [place] Dr. Verde saw the patient the last admission Patient was to see him as an outpatient for further plan Inasmuch as patient again has elevated white count with suspicion for infection, we will not consult oncology at this time Patient to follow-up outpatient on discharge (5) Post laminectomy syndrome: Difficult to differentiate between acute and chronic pain Patient does have an intrathecal pump Was scheduled to be replaced 09/03/2020. This was canceled secondary to urosepsis Due to increased pain at this time, we will not add any significant pain meds and will ask pain management to see the patient tomorrow Patient did receive 60 mg of IV methylprednisolone in the emergency department. We will hold off on any additional steroids Continue Cymbalta for depression as well as pain modulation We will also continue as needed tramadol, gabapentin, and [place] at home dose levels Pain is now better controlled with adding NSAID, with PPI to prevent any GI issu es. Despite this Hemoglobin has been decreasing, will closely monitor. (6) Hypertension: Blood pressure currently well controlled at 119/66 Patient does not appear to be on any outpatient antihypertensives We will follow vital signs per protocol (7) Gastroesophageal reflux disease: Continue pantoprazole 40 mg p.o. daily (8) Impaired fasting glucose: Hemoglobin A1c July 2020 was 5.2% Will not start sliding scale insulin We will place the patient on a diabetic/heart healthy diet (9) Moderate aortic stenosis: Watch ins and outs (10) DVT prophylaxis: Heparin 5000 units subcutaneously every 12 hours Ambulate as tolerated Out of bed to chair as tolerated Admission and Anticipated Discharge Date Admission Date: September 07, 2020 Subjective 75 yo female reports having fevers today and allergies. She whad to blow her nose dring our interview. She also reports feeling sluggish. Patient reports her baack pain remains. Review of Systems Review of Systems: All systems reviewed & are unremarkable except as noted in HPI & below Physical Exam Physical Exam: GENERAL : No acute distress. Pleasant. No evidence of conversational dyspnea EYES: No icterus, gaze conjugate. Lenses from cataract repair evident. NOSE: No evidence of epistaxis MOUTH: No lesions or candidiasis. Tongue is midline. No facial droop NECK: Supple. No carotid bruits or stridor appreciated LUNGS: CTA B/L, no wheezes, rales or rhonchi. Good inspiratory effort HEART: Regular, rate controlled. Harsh grade 3/6 holistic murmur over the aortic valve. ABDOMEN: Soft, NT, ND, BS Present. Intrathecal pump site examined. No evidence of tenderness or erythema around the pump. injections. No evidence of excoriation or open sores on the abdomen. EXTREMITIES: +3 bilateral pitting LE edema, pedal pulses intact and equal bilaterally NEURO: A&OX3. No facial droop. Results & Data Results & Data ([facility]) Vital Signs (Past 12 Hours) Vital Signs Temp Pulse Pulse Resp BP BP Pulse Ox 09/09/20 21:16 37.4 C 90 18 97/59 L 88 L 09/09/20 17:29 38.3 C H 09/09/20 15:54 38.8 C H 101 H 18 139/84 90 PG Care Time/CCT Total # of Minutes Spent Total Time Spent with Patient: Total time spent is greater than 50% in coordination of care (as documented) at patient's floor/unit and/or counseling patient: Coding Level of Care Code 31446 Subseq Hosp Care Lvl 3 Diagnoses Leukocytosis D72.829 Anemia D64.9 Elevated procalcitonin R79.89 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 Follicular lymphoma type: unspecified follicular type Lymphoma site: unspecified region Post laminectomy syndrome M96.1 Hypertension I10 Hypertension type: essential hypertension Gastroesophageal reflux disease K21.9 Impaired fasting glucose R73.01 Moderate aortic stenosis I35.0 DVT prophylaxis Z29.9 Time Spent (min) 45 (1) Follicular lymphoma Follicular lymphoma type: unspecified follicular type Lymphoma site: unspecified region Qualified Code(s): C82.90 - Follicular lymphoma, un specified, unspecified site (2) Hypertension Hypertension type: essential hypertension Qualified Code(s): I10 - Essential (primary) hypertension
[2020-09-09] MEDS: MELATONIN 3 MG TAB PO PRN (23:04)
[2020-09-09] MEDS: traZODone HCL 50 MG TAB PO PRN (23:04)
[2020-09-10 01:47] LABS: Adenovirus PCR Not Detected (NotDetected); Bordetella parapertussis PCR Not Detected (NotDetected); Bordetella pertussis PCR Not Detected (NotDetected); Chlamydia pneumoniae PCR Not Detected (NotDetected); Coronavirus 229E PCR Not Detected (NotDetected); Coronavirus HKU1 PCR Not Detected (NotDetected); Coronavirus NL63 PCR Not Detected (NotDetected); Coronavirus OC43PCR Not Detected (NotDetected); Human Metapneumovirus PCR Not Detected (NotDetected); Influenza A PCR Not Detected (NotDetected); Influenza B PCR Not Detected (NotDetected); Mycoplasma pneumoniae PCR Not Detected (NotDetected); Parainfluenza Virus 1 PCR Not Detected (NotDetected); Parainfluenza Virus 2 PCR Not Detected (NotDetected); Parainfluenza Virus 3 PCR Not Detected (NotDetected); Parainfluenza Virus 4 PCR Not Detected (NotDetected); Respiratory Syncytial VirusPCR Not Detected (NotDetected); Rhinovirus/Enterovirus PCR Not Detected (NotDetected)
[2020-09-10 02:08] LABS: Coronavirus CoV-2 (COVID19)PCR DETECTED (NotDetected)
[2020-09-10] MEDS: oxyCODONE/ACETAMINOPHEN 5mg/325mg TAB PO PRN ×2 (05:00→14:44)
[2020-09-10] MEDS: PIPERACILLIN/TAZOBACTAM 3.375 GM in DEXTROSE 5% 100 ML IV SCH (05:02)
[2020-09-10] MEDS: PANTOprazole 40 MG TAB PO SCH (06:36)
[2020-09-10 06:52] LABS: Basophils # (auto) 0.02 K/uL (0-0.2); Basophils % (auto) 0.3 %; Eosinophils # (auto) 0.06 K/uL (0-0.5); Eosinophils % (auto) 0.9 %; Hematocrit (blood only) 26.3 % (37-47); Hemoglobin 7.9 g/dL (12.0-16.0); Immature Granulocytes # (auto) 0.02 K/uL (0.00-0.02); Immature Granulocytes % (auto) 0.3 %; Lymphocytes # (auto) 0.61 K/uL (1.2-3.4); Mean Corpuscular Hemoglobin 26.3 pg (25-34); Mean Corpuscular Volume 87.7 fL (80-100); Mean Platelet Volume 8.4 fL (7.4-10.4); Monocytes # (auto) 0.68 K/uL (0.11-0.59); Neutrophils # (auto) 5.38 K/uL (1.4-6.5); Neutrophils % (auto) 79.5 %; Platelet Count 503 K/uL (130-400); RDW Coefficient of Variation 14.9 % (11.5-14.5); RDW Standard Deviation 47.2 fL (36.4-46.3); White Blood Count 6.77 K/uL (4.8-10.8)
[2020-09-10 07:09] LABS: D Dimer 1970 ug/L FEU (0-500)
[2020-09-10 07:23] LABS: BUN Creatinine Ratio 14.3 (10-20); Calcium 9.2 mg/dl (8.5-10.1); Creatinine Clr Calc Pharmacy 62.3 ml/min; Est GFR (Non-African American) 63.8; Potassium 4.3 mmol/L (3.5-5.1)
[2020-09-10 07:34] LABS: RBC Morphology Unremarkable
[2020-09-10] MEDS ORDERED: REMDESIVIR 200 mg: Day 1 IV ONE (09:00)
[2020-09-10] MEDS: POLYETHYLENE (MIRALAX) 17 GM PACK PO SCH (09:17)
[2020-09-10] MEDS: POTASSIUM CHLORIDE 10 MEQ TABCR PO SCH ×2 (09:18→22:02)
[2020-09-10] MEDS: CYCLOBENZAPRINE HCL 10 MG TAB PO SCH ×2 (09:18→14:43)
[2020-09-10] MEDS: GABAPENTIN 100 MG CAP PO SCH ×2 (09:19→21:15)
[2020-09-10] MEDS: ASPIRIN 81 MG ECTAB PO SCH (09:19)
[2020-09-10] MEDS: CALCIUM 600MG + VIT D 400 IU TAB PO SCH (09:19)
[2020-09-10] MEDS: LORATADINE 10 MG TAB PO SCH (09:19)
[2020-09-10] MEDS: MULTIVITAMIN TAB PO SCH (09:20)
[2020-09-10] MEDS: CHOLECALCIFEROL 1,000 UNITS 25 MCG TAB PO SCH (09:20)
[2020-09-10] MEDS: DULoxetine HCL 60 MG CAP PO SCH (09:21)
[2020-09-10] MEDS: DOCUSATE SODIUM 100 MG CAP PO SCH ×2 (09:21→21:14)
[2020-09-10] MEDS: FERROUS SULFATE 325 MG TAB PO SCH (09:21)
[2020-09-10] MEDS: DOCUSATE SODIUM/SENNA 50/8.6MG TAB PO SCH (09:22)
[2020-09-10] MEDS: DAPTOmycin 250 MG in SYRINGE 0 ML IV SCH (09:22)
[2020-09-10] MEDS: NSS 30mL Flush, Days 1-5 IV SCH (09:23)
[2020-09-10] MEDS: KETOROLAC TROMETHAMINE 15 MG/ML VIAL IV PRN (09:25)
[2020-09-10] MEDS: HEPARIN SOD 5,000 UNIT/0.5 ML VIAL SQ SCH ×2 (09:30→21:12)
--- NOTE | 2020-09-10 09:49 | Gastroenterology Progress Note ---
Date of Service September 10, 2020 Assessment & Plan (1) Anemia: GI consulted for anemia. Hgb 7.9/Hct 26.3 today. Negative fecal occult blood testing. Last colonoscopy 09/[address] Adams. COVID + testing 09/09/2020. Will defer endoscopy at this time. Recommend supportive care. Please refer to supervising physician addendum for further recommendations. Admission and Anticipated Discharge Date Admission Date: September 07, 2020 Subjective History obtained from chart review. Nursing provided update. Patient alert and oriented. On oxygen. Received Toradol today due to back pain. Denies shortness of breath, abdominal pain, nausea, or vomiting. Last bowel movement 09/09/2020. 09/15/2017: Last colonoscopy performed due to history of personal colon polyps a nd family history of colon cancer in first-degree relative by Dr. Adams. A 5 mm polyp was found in the ascending colon which was sessile and removed with a hot snare. There were small nonbleeding internal hemorrhoids found. Polyp pathology demonstrated tubular adenoma Review of Systems Review of Systems: All systems reviewed & are unremarkable except as noted in Subjective Physical Exam Physical Exam: see hospitalist physical exam - limiting in-person contacts due to COVID + patient Results & Data ([facility]) Vital Signs (Past 12 Hours) Vital Signs Temp Pulse Resp BP Pulse Ox 09/10/20 08:36 37.1 C 95 H 22 119/64 96 09/09/20 22:48 36.8 C 98 H 18 123/65 94 Laboratory Results - last 24 hr 09/09/20 09/09/20 09/09/20 10:35 10:35 14:00 WBC 6.56 RBC 2.99 L Hgb 8.2 L Hct 26.0 L MCV 87.0 MCH 27.4 MCHC 31.5 L RDW Std Deviation 46.9 H RDW Coeff of Inge 15.0 H Plt Count 473 H MPV 8.4 Immature Gran % (Auto) 0.4 Neut % (Auto) 82.6 Lymph % (Auto) 6.1 [place] % (Auto) 9.2 Eos % (Auto) 1.6 Baso % (Auto) 0.1 Neut # (Auto) 5.55 Lymph # (Auto) 0.41 L [place] # (Auto) 0.62 H Eos # (Auto) 0.11 Baso # (Auto) 0.01 Immature Gran # (Auto) 0.03 H RBC Morphology D-Dimer Sodium 139 Potassium 4.1 Chloride 103 Carbon Dioxide 31 Anion Gap 5.0 BUN 13 Creatinine 0.84 Est Cr Clr Drug Dosing 66.0 Est GFR ( Amer) 79.4 Est GFR (Non-Af Amer) 68.5 BUN/Creatinine Ratio 16.0 Glucose 97 POC Glucose Calcium 9.2 Iron 12 L TIBC 174 L Ferritin 414.8 H Procalcitonin Urine Color Urine Appearance Urine pH Ur Specific [place] Urine Protein Urine Glucose (UA) Urine Ketones Urine Blood Urine Nitrite Urine Bilirubin Urine Urobilinogen Ur Leukocyte Esterase Urine WBC (Auto) Urine RBC (Auto) U Hyaline Cast (Auto) U Epithel Cells (Auto) Urine Bacteria (Auto) Urine Crystals Amorphous Sediment Stool Occult Bld Scrn Negative Adenovirus (PCR) B. pertussis DNA (PCR) B.parapertussis DNA PCR C. pneumoniae DNA (PCR) Coronavirus OC43 (PCR) Coronavirus HKU1 (PCR) Coronavirus 229E (PCR) COVID-19 Eval Order COVID-19 PCR Coronavirus NL63 (PCR) Human Metapneumovir PCR Influenza Type A (PCR) Influenza Type B (PCR) M. pneumoniae (PCR) Parainfluenza 1 (PCR) Parainfluenza 2 (PCR) Parainfluenza 3 (PCR) Parainfluenza 4 (PCR) RSV (PCR) Entero/Rhino (PCR) 09/09/20 09/09/20 09/09/20 16:35 18:41 18:41 WBC RBC Hgb Hct MCV MCH MCHC RDW Std Deviation RDW Coeff of Inge Plt Count MPV Immature Gran % (Auto) Neut % (Auto) Lymph % (Auto) [place] % (Auto) Eos % (Auto) Baso % (Auto) Neut # (Auto) Lymph # (Auto) [place] # (Auto) Eos # (Auto) Baso # (Auto) Immature Gran # (Auto) RBC Morphology D-Dimer Sodium Potassium Chloride Carbon Dioxide Anion Gap BUN Creatinine Est Cr Clr Drug Dosing Est GFR ( Amer) Est GFR (Non-Af Amer) BUN/Creatinine Ratio Glucose POC Glucose Calcium Iron TIBC Ferritin Procalcitonin 0.25 Urine Color Urine Appearance Urine pH Ur Specific [place] Urine Protein Urine Glucose (UA) Urine Ketones Urine Blood Urine Nitrite Urine Bilirubin Urine Urobilinogen Ur Leukocyte Esterase Urine WBC (Auto) Urine RBC (Auto) U Hyaline Cast (Auto) U Epithel Cells (Auto) Urine Bacteria (Auto) Urine Crystals Amorphous Sediment Stool Occult Bld Scrn Adenovirus (PCR) B. pertussis DNA (PCR) B.parapertussis DNA PCR C. pneumoniae DNA (PCR) Coronavirus OC43 (PCR) Coronavirus HKU1 (PCR) Coronavirus 229E (PCR) COVID-19 Eval Order Covid19 Done at [facility] COVID-19 PCR POSITIVE A* Coronavirus NL63 (PCR) Human Metapneumovir PCR Influenza Type A (PCR) Influenza Type B (PCR) M. pneumoniae (PCR) Parainfluenza 1 (PCR) Parainfluenza 2 (PCR) Parainfluenza 3 (PCR) Parainfluenza 4 (PCR) RSV (PCR) Entero/Rhino (PCR) 09/09/20 09/09/20 09/10/20 18:41 19:20 06:31 WBC 6.77 RBC 3.00 L Hgb 7.9 L Hct 26.3 L MCV 87.7 MCH 26.3 MCHC 30.0 L RDW Std Deviation 47.2 H RDW Coeff of Inge 14.9 H Plt Count 503 H MPV 8.4 Immature Gran % (Auto) 0.3 Neut % (Auto) 79.5 Lymph % (Auto) 9.0 [place] % (Auto) 10.0 Eos % (Auto) 0.9 Baso % (Auto) 0.3 Neut # (Auto) 5.38 Lymph # (Auto) 0.61 L [place] # (Auto) 0.68 H Eos # (Auto) 0.06 Baso # (Auto) 0.02 Immature Gran # (Auto) 0.02 RBC Morphology Unremarkable D-Dimer Sodium Potassium Chloride Carbon Dioxide Anion Gap BUN Creatinine Est Cr Clr Drug Dosing Est GFR ( Amer) Est GFR (Non-Af Amer) BUN/Creatinine Ratio Glucose POC Glucose Calcium Iron TIBC Ferritin Procalcitonin Urine Color Yellow Urine Appearance Cloudy A Urine pH 7.0 Ur Specific [place] 1.014 Urine Protein Negative Urine Glucose (UA) Negative Urine Ketones Negative Urine Blood 1+ H Urine Nitrite Negative Urine Bilirubin Negative Urine Urobilinogen Negative Ur Leukocyte Esterase Negative Urine WBC (Auto) 1-5 Urine RBC (Auto) 0-4 U Hyaline Cast (Auto) 1-5 U Epithel Cells (Auto) >30 H Urine Bacteria (Auto) 1+ H Urine Crystals Not Reportable Amorphous Sediment Present A Stool Occult Bld Scrn Adenovirus (PCR) Not Detected B. pertussis DNA (PCR) Not Detected B.parapertussis DNA PCR Not Detected C. pneumoniae DNA (PCR) Not Detected Coronavirus OC43 (PCR) Not Detected Coronavirus HKU1 (PCR) Not Detected Coronavirus 229E (PCR) Not Detected COVID-19 Eval Order COVID-19 PCR DETECTED A* Coronavirus NL63 (PCR) Not Detected Human Metapneumovir PCR Not Detected Influenza Type A (PCR) Not Detected Influenza Type B (PCR) Not Detected M. pneumoniae (PCR) Not Detected Parainfluenza 1 (PCR) Not Detected Parainfluenza 2 (PCR) Not Detected Parainfluenza 3 (PCR) Not Detected Parainfluenza 4 (PCR) Not Detected RSV (PCR) Not Detected Entero/Rhino (PCR) Not Detected 09/10/20 09/10/20 09/10/20 06:31 06:31 08:29 WBC RBC Hgb Hct MCV MCH MCHC RDW Std Deviation RDW Coeff of Inge Plt Count MPV Immature Gran % (Auto) Neut % (Auto) Lymph % (Auto) [place] % (Auto) Eos % (Auto) Baso % (Auto) Neut # (Auto) Lymph # (Auto) [place] # (Auto) Eos # (Auto) Baso # (Auto) Immature Gran # (Auto) RBC Morphology D-Dimer 1970 H* Sodium 135 L Potassium 4.3 Chloride 101 Carbon Dioxide 31 Anion Gap 3.0 BUN 13 Creatinine 0.89 Est Cr Clr Drug Dosing 62.3 Est GFR ( Amer) 74.0 Est GFR (Non-Af Amer) 63.8 BUN/Creatinine Ratio 14.3 Glucose 86 POC Glucose 101 H Calcium 9.2 Iron TIBC Ferritin Procalcitonin Urine Color Urine Appearance Urine pH Ur Specific [place] Urine Protein Urine Glucose (UA) Urine Ketones Urine Blood Urine Nitrite Urine Bilirubin Urine Urobilinogen Ur Leukocyte Esterase Urine WBC (Auto) Urine RBC (Auto) U Hyaline Cast (Auto) U Epithel Cells (Auto) Urine Bacteria (Auto) Urine Crystals Amorphous Sediment Stool Occult Bld Scrn Adenovirus (PCR) B. pertussis DNA (PCR) B.parapertussis DNA PCR C. pneumoniae DNA (PCR) Coronavirus OC43 (PCR) Coronavirus HKU1 (PCR) Coronavirus 229E (PCR) COVID-19 Eval Order COVID-19 PCR Coronavirus NL63 (PCR) Human Metapneumovir PCR Influenza Type A (PCR) Influenza Type B (PCR) M. pneumoniae (PCR) Parainfluenza 1 (PCR) Parainfluenza 2 (PCR) Parainfluenza 3 (PCR) Parainfluenza 4 (PCR) RSV (PCR) Entero/Rhino (PCR)
[2020-09-10] MEDS: HYDROmorphone INJ 0.5 MG/0.5 ML SYR IV PRN (11:18)
[2020-09-10] MEDS: dexAMETHasone 6 MG in SYRINGE 0 ML IV SCH (11:18)
[2020-09-10] MEDS ORDERED: ACETAMINOPHEN 325 MG TAB PO ONE (14:05)
--- NOTE | 2020-09-10 14:07 | Hospitalist Progress Note ---
Date of Service September 10, 2020 Assessment & Plan (1) Pneumonia due to COVID-19 virus: Symptoms, exam, CXR findings, elevated d-dimer, along with +COVID-19 testing all c/w COVID-19 infection. She has moderate hypoxia today and I needed to increase her NC O2 for such. She is at risk of worsening disease given her immunocompromised status (recent dx of lymphoma). Will treat with 10-day course of decadron 6mg daily, remdesivir x 5 days (Cr and AST/ALT are wnl), and convalescent plasma. I discussed the risks/benefits of plasma with her, and gave her the FDA-issued patient handout on plasma. Written blood consent form completed. She has some element of volume overload. Thus, give 20mg IV Lasix now, and then give additional 20mg of IV lasix after the plasma has completed. Repeat d-dimer, cbc, bmp, ast/alt in am. Add flutter valve. Add mucinex. Bronchodilators prn. Check VBG - r/o CO2 retention. (2) Acute hypoxemic respiratory failure: 2nd to COVID-19 pneumonia and likely an element of acute diastolic CHF/HFpEF. See above. Dijadone. (3) (HFpEF) heart failure with preserved ejection fraction: Lasix 20mg IV x 1 now. Give additional IV lasix after the plasma has infused. Reassess need for more lasix in am. Echo from 08/2020 noted (preserved EF, normal RV function, etc). (4) UTI (urinary tract infection): Had presumed e.coli UTI with resulting septicemia/septic shock during prior admission. Was to finish a course of oral omnicef for such, stop date 09/11/20, as outpatient at [facility]. Blood cultures this admission negative. Was placed on IV zosyn on 09/05 upon re-admission to [facility]. This would have covered prior UTI and prior positive blood cultures. Will stop zosyn today. This admission with VRE in urine - sensitive to daptomycin. Fever likely due to COVID-19 infection, but cannot rule out VRE UTI contributing to constellation of symptoms/signs. Patient is quite fragile and immunocompromised. Thus, will err on side of caution and treat VRE UTI with at least 5 days of IV daptomycin. First dose today. (5) VRE infection (vancomycin resistant Enterococcus): UTI. see above. (6) Follicular lymphoma: Recent diagnosis. Follows with Dr Verde. I spoke with Dr Verde today - no contraindication for plasma therapy or steroids for her COVID-19. (7) Chronic pain syndrome: Follows with pain management. Has intrathecal pain pump. I am wondering if higher doses of flexeril is contributing to sedation. Will cut dose back to 5mg and make PRN. (8) Moderate aortic stenosis: Noted. (9) Anemia: Hb 7.9 today. Repeat CBC in am. If Hb <7 will Tx PRBCs. Anemia likely multifactorial. (10) Gram-negative bacteremia: 2nd e.coli during prior admission in August. presumed source - urine/UTI. see above. (11) Hypertension: BPs wnl on no BP meds. (12) Impaired fasting glucose: Previous a1c 5.2%. Pre-DM resolved. In light of poor appetite change diet to regular to entice eating. (13) Presence of intrathecal pump: noted (14) Depression: cont cymbalta cont trazodone (15) DVT prophylaxis: in light of COVID diagnosis and heme negative stool - increase heparin to 7500 units TID given increased risk of DVT will need PT/OT ultimately left message for daughter - 09/10/20 Admission and Anticipated Discharge Date Admission Date: September 07, 2020 Subjective Upon entering the pt's room she was sleeping soundly in the chair. Her head was slumped over. She awoke easily when I called her name. She complained of feeling very tired with lack of energy and poor appetite. c/o cough, mainly dry, and MEEHAN. Several times during the visit she fell asleep. When she fell asleep her head would slump over. O2 sats were 88% on 2 L NC. I increased her NC O2 to 3 L and sats improved to 90-92%. Pt denied any nasal congestion, abd pain, nausea, emesis or diarrhea. Denied loss of taste or smell. She c/o LE edema - worse since her previous hospital stay. "I always have swelling at home but it is definitely worse than usual." We discussed convalescent plasma and she expressed desire to have such. Review of Systems Constitutional: + fever, + fatigue and + anorexia; no chills Respiratory: no hemoptysis and no wheezing Cardiovascular: + orthopnea and + edema; no chest pain Gastrointestinal: no abdominal pain Musculoskeletal: + back pain (chronic, has pain pump); no myalgia Integumentary: no rash Physical Exam Constitutional: + ill appearing and + frail appearing; no acute distress and no altered mental status but fell asleep easily ENMT: external ear and nose normal, oropharynx normal Respiratory: no respiratory distress Auscultation: + rales (b/l bases ); no wheezes Cardiovascular: Rate/Rhythm: regular rate and regular rhythm Heart Sounds: normal S1, normal S2 and + murmur (2/6 holosystolic RUSB ) Vessels: + JVD, posterior tibial pulses present and dorsalis pedis pulses present Extremities: + edema (3+ b/l legs) Gastrointestinal (Abdomen): normal bowel sounds, soft, nontender, no hepatosplenomegaly pain pump palpable left side of abdomen Skin: no rashes, warm and dry Psychiatric: Orientation: oriented x 3 Results & Data Results & Data ([facility]) Vital Signs (Past 12 Hours) Vital Signs Temp Pulse Resp BP BP Pulse Ox 09/10/20 11:24 37.0 C 86 18 134/59 L 93 09/10/20 08:36 37.1 C 95 H 22 119/64 96 Laboratory Results Laboratory Results - last 24 hr 09/09/20 09/09/20 09/09/20 10:35 14:00 16:35 WBC 6.56 RBC 2.99 L Hgb 8.2 L Hct 26.0 L MCV 87.0 MCH 27.4 MCHC 31.5 L RDW Std Deviation 46.9 H RDW Coeff of Inge 15.0 H Plt Count 473 H MPV 8.4 Immature Gran % (Auto) 0.4 Neut % (Auto) 82.6 Lymph % (Auto) 6.1 [place] % (Auto) 9.2 Eos % (Auto) 1.6 Baso % (Auto) 0.1 Neut # (Auto) 5.55 Lymph # (Auto) 0.41 L [place] # (Auto) 0.62 H Eos # (Auto) 0.11 Baso # (Auto) 0.01 Immature Gran # (Auto) 0.03 H RBC Morphology D-Dimer Sodium Potassium Chloride Carbon Dioxide Anion Gap BUN Creatinine Est Cr Clr Drug Dosing Est GFR ( Amer) Est GFR (Non-Af Amer) BUN/Creatinine Ratio Glucose POC Glucose Calcium Procalcitonin 0.25 Urine Color Urine Appearance Urine pH Ur Specific [place] Urine Protein Urine Glucose (UA) Urine Ketones Urine Blood Urine Nitrite Urine Bilirubin Urine Urobilinogen Ur Leukocyte Esterase Urine WBC (Auto) Urine RBC (Auto) U Hyaline Cast (Auto) U Epithel Cells (Auto) Urine Bacteria (Auto) Urine Crystals Amorphous Sediment Stool Occult Bld Scrn Negative Adenovirus (PCR) B. pertussis DNA (PCR) B.parapertussis DNA PCR C. pneumoniae DNA (PCR) Coronavirus OC43 (PCR) Coronavirus HKU1 (PCR) Coronavirus 229E (PCR) COVID-19 Eval Order COVID-19 PCR Coronavirus NL63 (PCR) Human Metapneumovir PCR Influenza Type A (PCR) Influenza Type B (PCR) M. pneumoniae (PCR) Parainfluenza 1 (PCR) Parainfluenza 2 (PCR) Parainfluenza 3 (PCR) Parainfluenza 4 (PCR) RSV (PCR) Entero/Rhino (PCR) 09/09/20 09/09/20 09/09/20 18:41 18:41 18:41 WBC RBC Hgb Hct MCV MCH MCHC RDW Std Deviation RDW Coeff of Inge Plt Count MPV Immature Gran % (Auto) Neut % (Auto) Lymph % (Auto) [place] % (Auto) Eos % (Auto) Baso % (Auto) Neut # (Auto) Lymph # (Auto) [place] # (Auto) Eos # (Auto) Baso # (Auto) Immature Gran # (Auto) RBC Morphology D-Dimer Sodium Potassium Chloride Carbon Dioxide Anion Gap BUN Creatinine Est Cr Clr Drug Dosing Est GFR ( Amer) Est GFR (Non-Af Amer) BUN/Creatinine Ratio Glucose POC Glucose Calcium Procalcitonin Urine Color Urine Appearance Urine pH Ur Specific [place] Urine Protein Urine Glucose (UA) Urine Ketones Urine Blood Urine Nitrite Urine Bilirubin Urine Urobilinogen Ur Leukocyte Esterase Urine WBC (Auto) Urine RBC (Auto) U Hyaline Cast (Auto) U Epithel Cells (Auto) Urine Bacteria (Auto) Urine Crystals Amorphous Sediment Stool Occult Bld Scrn Adenovirus (PCR) Not Detected B. pertussis DNA (PCR) Not Detected B.parapertussis DNA PCR Not Detected C. pneumoniae DNA (PCR) Not Detected Coronavirus OC43 (PCR) Not Detected Coronavirus HKU1 (PCR) Not Detected Coronavirus 229E (PCR) Not Detected COVID-19 Eval Order Covid19 Done at [facility] COVID-19 PCR POSITIVE A* DETECTED A* Coronavirus NL63 (PCR) Not Detected Human Metapneumovir PCR Not Detected Influenza Type A (PCR) Not Detected Influenza Type B (PCR) Not Detected M. pneumoniae (PCR) Not Detected Parainfluenza 1 (PCR) Not Detected Parainfluenza 2 (PCR) Not Detected Parainfluenza 3 (PCR) Not Detected Parainfluenza 4 (PCR) Not Detected RSV (PCR) Not Detected Entero/Rhino (PCR) Not Detected 09/09/20 09/10/20 09/10/20 19:20 06:31 06:31 WBC 6.77 RBC 3.00 L Hgb 7.9 L Hct 26.3 L MCV 87.7 MCH 26.3 MCHC 30.0 L RDW Std Deviation 47.2 H RDW Coeff of Inge 14.9 H Plt Count 503 H MPV 8.4 Immature Gran % (Auto) 0.3 Neut % (Auto) 79.5 Lymph % (Auto) 9.0 [place] % (Auto) 10.0 Eos % (Auto) 0.9 Baso % (Auto) 0.3 Neut # (Auto) 5.38 Lymph # (Auto) 0.61 L [place] # (Auto) 0.68 H Eos # (Auto) 0.06 Baso # (Auto) 0.02 Immature Gran # (Auto) 0.02 RBC Morphology Unremarkable D-Dimer 1970 H* Sodium Potassium Chloride Carbon Dioxide Anion Gap BUN Creatinine Est Cr Clr Drug Dosing Est GFR ( Amer) Est GFR (Non-Af Amer) BUN/Creatinine Ratio Glucose POC Glucose Calcium Procalcitonin Urine Color Yellow Urine Appearance Cloudy A Urine pH 7.0 Ur Specific [place] 1.014 Urine Protein Negative Urine Glucose (UA) Negative Urine Ketones Negative Urine Blood 1+ H Urine Nitrite Negative Urine Bilirubin Negative Urine Urobilinogen Negative Ur Leukocyte Esterase Negative Urine WBC (Auto) 1-5 Urine RBC (Auto) 0-4 U Hyaline Cast (Auto) 1-5 U Epithel Cells (Auto) >30 H Urine Bacteria (Auto) 1+ H Urine Crystals Not Reportable Amorphous Sediment Present A Stool Occult Bld Scrn Adenovirus (PCR) B. pertussis DNA (PCR) B.parapertussis DNA PCR C. pneumoniae DNA (PCR) Coronavirus OC43 (PCR) Coronavirus HKU1 (PCR) Coronavirus 229E (PCR) COVID-19 Eval Order COVID-19 PCR Coronavirus NL63 (PCR) Human Metapneumovir PCR Influenza Type A (PCR) Influenza Type B (PCR) M. pneumoniae (PCR) Parainfluenza 1 (PCR) Parainfluenza 2 (PCR) Parainfluenza 3 (PCR) Parainfluenza 4 (PCR) RSV (PCR) Entero/Rhino (PCR) 09/10/20 09/10/20 06:31 08:29 WBC RBC Hgb Hct MCV MCH MCHC RDW Std Deviation RDW Coeff of Inge Plt Count MPV Immature Gran % (Auto) Neut % (Auto) Lymph % (Auto) [place] % (Auto) Eos % (Auto) Baso % (Auto) Neut # (Auto) Lymph # (Auto) [place] # (Auto) Eos # (Auto) Baso # (Auto) Immature Gran # (Auto) RBC Morphology D-Dimer Sodium 135 L Potassium 4.3 Chloride 101 Carbon Dioxide 31 Anion Gap 3.0 BUN 13 Creatinine 0.89 Est Cr Clr Drug Dosing 62.3 Est GFR ( Amer) 74.0 Est GFR (Non-Af Amer) 63.8 BUN/Creatinine Ratio 14.3 Glucose 86 POC Glucose 101 H Calcium 9.2 Procalcitonin Urine Color Urine Appearance Urine pH Ur Specific [place] Urine Protein Urine Glucose (UA) Urine Ketones Urine Blood Urine Nitrite Urine Bilirubin Urine Urobilinogen Ur Leukocyte Esterase Urine WBC (Auto) Urine RBC (Auto) U Hyaline Cast (Auto) U Epithel Cells (Auto) Urine Bacteria (Auto) Urine Crystals Amorphous Sediment Stool Occult Bld Scrn Adenovirus (PCR) B. pertussis DNA (PCR) B.parapertussis DNA PCR C. pneumoniae DNA (PCR) Coronavirus OC43 (PCR) Coronavirus HKU1 (PCR) Coronavirus 229E (PCR) COVID-19 Eval Order COVID-19 PCR Coronavirus NL63 (PCR) Human Metapneumovir PCR Influenza Type A (PCR) Influenza Type B (PCR) M. pneumoniae (PCR) Parainfluenza 1 (PCR) Parainfluenza 2 (PCR) Parainfluenza 3 (PCR) Parainfluenza 4 (PCR) RSV (PCR) Entero/Rhino (PCR) PG Care Time/CCT Total # of Minutes Spent Total Time Spent with Patient: Total time spent is greater than 50% in coordination of care (as documented) at patient's floor/unit and/or counseling patient: Coding Level of Care Code 15258 Subseq Hosp Care Lvl 3 Diagnoses Pneumonia due to COVID-19 virus U07.1; J12.89 Acute hypoxemic respiratory failure J96.01 (HFpEF) heart failure with preserved ejection fraction I50.31 Heart failure chronicity: acute UTI (urinary tract infection) N30.00 Urinary tract infection type: acute cystitis Hematuria presence: without hematuria VRE infection (vancomycin resistant Enterococcus) A49.1; Z16.21 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 Follicular lymphoma type: unspecified follicular type Lymphoma site: unspecified region Chronic pain syndrome G89.4 Moderate aortic stenosis I35.0 Anemia D64.9 Anemia type: unspecified type Gram-negative bacteremia R78.81 Hypertension I10 Hypertension type: essential hypertension Impaired fasting glucose R73.01 Presence of intrathecal pump Z96.89 Depression F32.9 Depression Type: unspecified DVT prophylaxis Z29.9 (1) Follicular lymphoma Follicular lymphoma type: unspecified follicular type Lymphoma site: unspecified region Qualified Code(s): C82.90 - Follicular lymphoma, unspecified, unspecified site (2) Anemia Anemia type: unspecified type Qualified Code(s): D64.9 - Anemia, unspecified (3) Hypertension Hypertension type: essential hypertension Qualified Code(s): I10 - Essential (primary) hypertension (4) Depression Depression Type: unspecified Qualified Code(s): F32.9 - Major depressive disorder, single episode, unspecified (5) UTI (urinary tract infection) Urinary tract infection type: acute cystitis Hematuria presence: without hematuria Qualified Code(s): N30.00 - Acute cystitis without hematuria (6) (HFpEF) heart failure with preserved ejection fraction Heart failure chronicity: acute Qualified Code(s): I50.31 - Acute diastolic (congestive) heart failure
[2020-09-10] MEDS ORDERED: FUROSEMIDE 20 MG in SYRINGE 0 ML IV STA (14:09)
[2020-09-10] MEDS ORDERED: FUROSEMIDE 20 MG in SYRINGE 0 ML IV SCH (14:30)
[2020-09-10 14:45] LABS: Base Excess VBG -0.1 mEq/L; Oxygen Saturation VBG 87.7 %; pH VBG 7.38 (7.36-7.41)
--- NOTE | 2020-09-10 16:01 | Progress Notes ---
DATE: 09/10/2020 Supplement to the progress note today by Bailey Carmen: I reviewed the patient's chart and lab work. The patient was diagnosed with COVID overnight when she developed cough late yesterday afternoon. She is now in a negative air room. The patient's stool has returned negative for Hemoccult and I believe that her anemia is not related to GI blood loss as she has no GI symptoms. No aspirin or nonsteroidals. At this point, I do not think she needs another colonoscopy. She had one [address] Adams, which showed diverticulosis. We will sign off for now unless further GI input is needed later during her hospitalization.
[2020-09-10] MEDS: guaiFENesin 600 MG TABCR PO SCH (21:15)
[2020-09-11] MEDS: traZODone HCL 50 MG TAB PO PRN ×2 (00:51→23:49)
[2020-09-11] MEDS: PANTOprazole 40 MG TAB PO SCH (05:53)
[2020-09-11] MEDS: HEPARIN SOD 5,000 UNIT/0.5 ML VIAL SQ SCH ×3 (06:11→22:15)
[2020-09-11 06:23] LABS: Hematocrit (blood only) 24.3 % (37-47); Hemoglobin 7.6 g/dL (12.0-16.0); Mean Corpuscular Hemoglobin 27.3 pg (25-34); Mean Corpuscular Hgb Conc 31.3 g/dL (32-36); Mean Corpuscular Volume 87.4 fL (80-100); Mean Platelet Volume 8.4 fL (7.4-10.4); Platelet Count 469 K/uL (130-400); RDW Coefficient of Variation 14.8 % (11.5-14.5); RDW Standard Deviation 46.8 fL (36.4-46.3); Red Blood Count 2.78 M/uL (4.2-5.4); White Blood Count 4.96 K/uL (4.8-10.8)
[2020-09-11 06:44] LABS: D Dimer 1240 ug/L FEU (0-500)
[2020-09-11 06:51] LABS: BUN Creatinine Ratio 20.7 (10-20); Calcium 8.8 mg/dl (8.5-10.1); Est GFR (African American) 97.3; Est GFR (Non-African American) 83.9; Potassium 4.4 mmol/L (3.5-5.1)
[2020-09-11] MEDS: oxyCODONE/ACETAMINOPHEN 5mg/325mg TAB PO PRN ×3 (07:57→17:17)
[2020-09-11] MEDS: CYCLOBENZAPRINE HCL 5 MG TAB PO PRN ×2 (07:58→18:39)
[2020-09-11] MEDS: guaiFENesin 600 MG TABCR PO SCH ×2 (07:59→22:38)
[2020-09-11] MEDS: POTASSIUM CHLORIDE 10 MEQ TABCR PO SCH ×2 (07:59→23:48)
[2020-09-11] MEDS: GABAPENTIN 100 MG CAP PO SCH ×2 (07:59→23:49)
[2020-09-11] MEDS: FERROUS SULFATE 325 MG TAB PO SCH (07:59)
[2020-09-11] MEDS: ASPIRIN 81 MG ECTAB PO SCH (08:00)
[2020-09-11] MEDS ORDERED: FUROSEMIDE 20 MG in SYRINGE 0 ML IV ONE ×2 (08:00→16:30)
[2020-09-11] MEDS: DULoxetine HCL 60 MG CAP PO SCH (08:00)
[2020-09-11] MEDS: CALCIUM 600MG + VIT D 400 IU TAB PO SCH (08:01)
[2020-09-11] MEDS: MULTIVITAMIN TAB PO SCH (08:01)
[2020-09-11] MEDS: LORATADINE 10 MG TAB PO SCH (08:01)
[2020-09-11] MEDS: CHOLECALCIFEROL 1,000 UNITS 25 MCG TAB PO SCH (08:01)
[2020-09-11] MEDS: dexAMETHasone 6 MG in SYRINGE 0 ML IV SCH (08:01)
[2020-09-11] MEDS: DAPTOmycin 250 MG in SYRINGE 0 ML IV SCH (08:02)
[2020-09-11] MEDS: REMDESIVIR 100mg: Days 2-5 IV SCH (08:02)
[2020-09-11] MEDS: NSS 30mL Flush, Days 1-5 IV SCH (08:02)
[2020-09-11] MEDS: POLYETHYLENE (MIRALAX) 17 GM PACK PO SCH (08:03)
[2020-09-11] MEDS: DOCUSATE SODIUM/SENNA 50/8.6MG TAB PO SCH (08:03)
[2020-09-11] MEDS: DOCUSATE SODIUM 100 MG CAP PO SCH ×2 (08:03→22:37)
[2020-09-11 08:45] LABS: Alanine Aminotransferase 33 U/L (12-78); Aspartate Aminotransferase 17 U/L (15-37)
[2020-09-11] MEDS: AMOXICILLIN 500 MG CAP PO SCH ×2 (14:51→22:37)
--- NOTE | 2020-09-11 18:34 | Hospitalist Progress Note ---
Date of Service September 11, 2020 Assessment & Plan (1) Pneumonia due to COVID-19 virus: Same or slightly improved. Cont 10-day course of decadron 6mg daily, day #2 today. Cont remdesivir x 5 days - day #2 today. (Cr and AST/ALT remain wnl) s/p convalescent plasma last pm. cbc, bmp, ast/alt in am. Cont flutter valve. Cont mucinex. Cont Bronchodilators prn. (2) Acute hypoxemic respiratory failure: 2nd to COVID-19 pneumonia and element of acute diastolic CHF/HFpEF. See above. Diurese. (3) (HFpEF) heart failure with preserved ejection fraction: Cont diuresis. Repeat labs am. Echo from 08/2020 noted (preserved EF, normal RV function, etc). (4) UTI (urinary tract infection): Had presumed e.coli UTI with resulting septicemia/septic shock during pr ior admission. Was to finish a course of oral omnicef for such, stop date 09/11/20, as outpatient at [facility]. Blood cultures this admission negative. Was placed on IV zosyn on 09/05 upon re-admission to [facility]. This would have covered prior UTI and prior positive blood cultures. Zosyn now stopped. 2 separate urine cultures with VRE and alpha strep. Daptomycin IV for VRE. Amox for alpha strep. (5) VRE infection (vancomycin resistant Enterococcus): UTI. see above. (6) Follicular lymphoma: Recent diagnosis. Follows with Dr Verde. (7) Chronic pain syndrome: Follows with pain management. Has intrathecal pain pump. Decadron for COVID helping back. (8) Moderate aortic stenosis: Noted. (9) Anemia: Hb 7.6 today. Repeat CBC in am. If Hb <7 will Tx PRBCs. Anemia likely multifactorial. (10) Gram-negative bacteremia: 2nd e.coli during prior admission in August. presumed source - urine/UTI. see above. (11) Hypertension: BPs wnl on no BP meds. (12) Impaired fasting glucose: Previous a1c 5.2%. Pre-DM resolved. (13) Presence of intrathecal pump: noted (14) Depression: cont cymbalta cont trazodone (15) DVT prophylaxis: heparin 7500 units TID given increased risk of DVT will need PT/OT ultimately left message for daughter - 09/10/20 and 09/11/20 Admission and Anticipated Discharge Date Admission Date: September 07, 2020 Subjective "I feel better today." Less cough, less dyspnea - but still requiring 2 L NC O2. appetite same. no chest pain. no abd pain. no diarrhea. no nausea. Review of Systems Constitutional: + fatigue and + anorexia; no fever and no chills Respiratory: no wheezing Gastrointestinal: no vomiting Musculoskeletal: + back pain (improved today) Physical Exam Constitutional: + ill appearing and + frail appearing; no acute distress and no altered mental status ENMT: external ear and nose normal, oropharynx normal Respiratory: no respiratory distress Auscultation: + rales (b/l bases ); no wheezes Cardiovascular: Rate/Rhythm: regular rate and regular rhythm Heart Sounds: normal S1, normal S2 and + murmur (2/6 holosystolic RUSB ) Vessels: + JVD (improved today ), posterior tibial pulses present and dorsalis pedis pulses present Extremities: + edema (2-3+ b/l legs) Gastrointestinal (Abdomen): normal bowel sounds, soft, nontender, no hepatosplenomegaly Skin: no rashes, warm and dry Psychiatric: Orientation: oriented x 3 Results & Data Results & Data ([facility]) Vital Signs (Past 12 Hours) Vital Signs Temp Pulse Resp BP Pulse Ox 09/11/20 17:01 36.7 C 79 23 102/60 97 Laboratory Results Laboratory Results - last 24 hr 09/10/20 09/11/20 09/11/20 14:23 05:28 05:28 WBC 4.96 RBC 2.78 L Hgb 7.6 L Hct 24.3 L MCV 87.4 MCH 27.3 MCHC 31.3 L RDW Std Deviation 46.8 H RDW Coeff of Inge 14.8 H Plt Count 469 H MPV 8.4 D-Dimer 1240 H* Sodium Potassium Chloride Carbon Dioxide Anion Gap BUN Creatinine Est Cr Clr Drug Dosing Est GFR ( Amer) Est GFR (Non-Af Amer) BUN/Creatinine Ratio Glucose Calcium Magnesium AST ALT Total Creatine Kinase Blood Type B Positive Antibody Screen NEGATIVE 09/11/20 09/11/20 05:28 05:28 WBC RBC Hgb Hct MCV MCH MCHC RDW Std Deviation RDW Coeff of Inge Plt Count MPV D-Dimer Sodium 140 Potassium 4.4 Chloride 104 Carbon Dioxide 32 Anion Gap 4.0 BUN 15 Creatinine 0.71 Est Cr Clr Drug Dosing 78.0 Est GFR ( Amer) 97.3 Est GFR (Non-Af Amer) 83.9 BUN/Creatinine Ratio 20.7 H Glucose 76 Calcium 8.8 Magnesium 2.0 AST 17 ALT 33 Total Creatine Kinase 11 L Blood Type Antibody Screen PG Care Time/CCT Total # of Minutes Spent Total Time Spent with Patient: Total time spent is greater than 50% in coordination of care (as documented) at patient's floor/unit and/or counseling patient: Coding Level of Care Code 63432 Subseq Hosp Care Lvl 3 Diagnoses Pneumonia due to COVID-19 virus U07.1; J12.89 Acute hypoxemic respiratory failure J96.01 (HFpEF) heart failure with preserved ejection fraction I50.31 Heart failure chronicity: acute UTI (urinary tract infection) N30.00 Hematuria presence: without hematuria Urinary tract infection type: acute cystitis VRE infection (vancomycin resistant Enterococcus) A49.1; Z16.21 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 Follicular lymphoma type: unspecified follicular type Lymphoma site: unspecified region Chronic pain syndrome G89.4 Moderate aortic stenosis I35.0 Anemia D64.9 Anemia type: unspecified type Gram-negative bacteremia R78.81 Hypertension I10 Hypertension type: essential hypertension Impaired fasting glucose R73.01 Presence of intrathecal pump Z96.89 Depression F32.9 Depression Type: unspecified DVT prophylaxis Z29.9 (1) UTI (urinary tract infection) Hematuria presence: without hematuria Urinary tract infection type: acute cystitis Qualified Code(s): N30.00 - Acute cystitis without hematuria (2) (HFpEF) heart failure with preserved ejection fraction Heart failure chronicity: acute Qualified Code(s): I50.31 - Acute diastolic (congestive) heart failure (3) Anemia Anemia type: unspecified type Qualified Code(s): D64.9 - Anemia, unspecified (4) Depression Depression Type: unspecified Qualified Code(s): F32.9 - Major depressive disorder, single episode, unspecified (5) Follicular lymphoma Follicular lymphoma type: unspecified follicular type Lymphoma site: unspecified region Qualified Code(s): C82.90 - Follicular lymphoma, unspecified, unspecified site (6) Hypertension Hypertension type: essential hypertension Qualified Code(s): I10 - Essential (primary) hypertension
[2020-09-11] MEDS: KETOROLAC TROMETHAMINE 15 MG/ML VIAL IV PRN (23:50)
[2020-09-12 05:54] LABS: Hemoglobin 7.7 g/dL (12.0-16.0); Mean Corpuscular Hemoglobin 27.2 pg (25-34); Mean Corpuscular Hgb Conc 30.8 g/dL (32-36); Mean Corpuscular Volume 88.3 fL (80-100); Mean Platelet Volume 8.2 fL (7.4-10.4); Platelet Count 493 K/uL (130-400); RDW Coefficient of Variation 14.7 % (11.5-14.5); RDW Standard Deviation 47.7 fL (36.4-46.3); Red Blood Count 2.83 M/uL (4.2-5.4); White Blood Count 5.41 K/uL (4.8-10.8)
[2020-09-12] MEDS: HEPARIN SOD 5,000 UNIT/0.5 ML VIAL SQ SCH ×3 (06:00→21:19)
[2020-09-12] MEDS: PANTOprazole 40 MG TAB PO SCH (06:10)
[2020-09-12] MEDS: CYCLOBENZAPRINE HCL 5 MG TAB PO PRN ×2 (06:14→20:33)
[2020-09-12 06:38] LABS: BUN Creatinine Ratio 22.4 (10-20); Calcium 8.8 mg/dl (8.5-10.1); Creatinine Clr Calc Pharmacy 64.4 ml/min; Est GFR (African American) 77.1; Est GFR (Non-African American) 66.6; Potassium 3.8 mmol/L (3.5-5.1)
[2020-09-12] MEDS ORDERED: FUROSEMIDE 20 MG in SYRINGE 0 ML IV ONE (08:15)
[2020-09-12] MEDS: REMDESIVIR 100mg: Days 2-5 IV SCH (08:20)
[2020-09-12] MEDS: ACETAMINOPHEN 500 MG TAB PO PRN ×2 (08:21→16:53)
[2020-09-12] MEDS: GABAPENTIN 100 MG CAP PO SCH ×2 (08:22→21:41)
[2020-09-12] MEDS: guaiFENesin 600 MG TABCR PO SCH ×2 (08:22→20:34)
[2020-09-12] MEDS: dexAMETHasone 6 MG in SYRINGE 0 ML IV SCH (08:22)
[2020-09-12] MEDS: AMOXICILLIN 500 MG CAP PO SCH ×3 (08:23→20:34)
[2020-09-12] MEDS: FERROUS SULFATE 325 MG TAB PO SCH (08:44)
[2020-09-12] MEDS: CALCIUM 600MG + VIT D 400 IU TAB PO SCH (08:44)
[2020-09-12] MEDS: ASPIRIN 81 MG ECTAB PO SCH (08:44)
[2020-09-12] MEDS: POTASSIUM CHLORIDE 10 MEQ TABCR PO SCH ×2 (08:44→21:40)
[2020-09-12] MEDS: MULTIVITAMIN TAB PO SCH (08:44)
[2020-09-12] MEDS: LORATADINE 10 MG TAB PO SCH (08:44)
[2020-09-12] MEDS: DULoxetine HCL 60 MG CAP PO SCH (08:44)
[2020-09-12] MEDS: CHOLECALCIFEROL 1,000 UNITS 25 MCG TAB PO SCH (08:44)
[2020-09-12] MEDS: DOCUSATE SODIUM/SENNA 50/8.6MG TAB PO SCH (08:45)
[2020-09-12] MEDS: POLYETHYLENE (MIRALAX) 17 GM PACK PO SCH (08:45)
[2020-09-12] MEDS: DOCUSATE SODIUM 100 MG CAP PO SCH ×2 (08:45→20:33)
[2020-09-12] MEDS: NSS 30mL Flush, Days 1-5 IV SCH (09:30)
[2020-09-12] MEDS: DAPTOmycin 250 MG in SYRINGE 0 ML IV SCH (10:28)
[2020-09-12] MEDS ORDERED: POTASSIUM CHLORIDE CRTAB 20 MEQ TABCR PO ONE (16:45)
[2020-09-12] MEDS ORDERED: FUROSEMIDE 20 MG TAB PO ONE (16:45)
--- NOTE | 2020-09-12 19:21 | Hospitalist Progress Note ---
Date of Service September 12, 2020 Assessment & Plan (1) Pneumonia due to COVID-19 virus: Improved. Cont 10-day course of decadron 6mg daily, day #3 today. Cont remdesivir x 5 days - day #3 today. (Cr and AST/ALT remain wnl) s/p convalescent plasma 2 days ago. Cont flutter valve. Cont mucinex. Cont Bronchodilators prn. Wean fiO2 as tolerated. (2) Acute hypoxemic respiratory failure: 2nd to COVID-19 pneumonia and acute diastolic CHF/HFpEF. Improved. Diurese. Supportive care for COVID-19. (3) (HFpEF) heart failure with preserved ejection fraction: ACUTE. Cont diuresis - IV lasix this am, then PO lasix later today.. Repeat labs am. Echo from 08/2020 noted (preserved EF, normal RV function, etc). (4) UTI (urinary tract infection): Had presumed e.coli UTI with resulting septicemia/septic shock during prior admission. Was to finish a course of oral omnicef for such, stop date 09/11/20, as outpatient at [facility]. Blood cultures this admission negative. Was placed on IV zosyn on 09/05 upon re-admission to [facility]. This would have covered prior UTI and prior positive blood cultures. Zosyn now stopped. 2 separate urine cultures with VRE and alpha strep. Rather odd in light of clinical picture. Daptomycin IV for VRE. Day #3 of such. Plan 5-day course. Amox for alpha strep. Day #2 of such; plan 3 days. (5) VRE infection (vancomycin resistant Enterococcus): UTI. see above. (6) Follicular lymphoma: Recent diagnosis. Follows with Dr Verde. Daily CBC. May need PRBCs soon. (7) Chronic pain syndrome: Follows with pain management. Has intrathecal pain pump. Decadron for COVID helping back. (8) Moderate aortic stenosis: Noted. (9) Anemia: Hb 7.7 today. Repeat CBC in am. If Hb <7 will Tx PRBCs. Anemia likely multifactorial. (10) Gram-negative bacteremia: 2nd e.coli during prior admission in August. presumed source - urine/UTI. see above. (11) Hypertension: BPs wnl on no BP meds. (12) Impaired fasting glucose: Previous a1c 5.2%. Pre-DM resolved. (13) Presence of intrathecal pump: noted for chronic back pain when steroid course for COVID is complete she is asking for additional pain control so she can tolerate PT and rehab will review PDMP (14) Depression: cont cymbalta cont trazodone (15) DVT prophylaxis: heparin 7500 units TID given increased risk of DVT PT, OT evals left message for daughter - 09/10/20 and 09/11/20 spoke with daughter, Radha, on phone today at # [phone] 10 minutes of update given; questions answered Admission and Anticipated Discharge Date Admission Date: September 07, 2020 Subjective patient again states she feels better today. still w/ cough and mild MEEHAN, however. tele stable overnight. eating better. back pain improved w/ steroids. using k-pad as well. 1 loose stool today. wants to start ambulating. Review of Systems Constitutional: no fever, no chills and no body aches Respiratory: no wheezing Cardiovascular: + edema; no chest pain and no orthopnea Gastrointestinal: no abdominal pain, no nausea and no vomiting Physical Exam Constitutional: + frail appearing (Best she has looked this we); no acute distress, not ill appearing and no altered mental status ENMT: external ear and nose normal, oropharynx normal Respiratory: no respiratory distress Auscultation: + diminished lung sounds (Right base) and + rales (Left base); no wheezes Cardiovascular: Rate/Rhythm: regular rate and regular rhythm Heart Sounds: normal S1, normal S2 and + murmur (2/6 holosystolic RUSB ) Vessels: posterior tibial pulses present and dorsalis pedis pulses present; no JVD Extremities: + edema (2+ b/l legs) Gastrointestinal (Abdomen): normal bowel sounds, soft, nontender, no hepatosplenomegaly pain pump left side of abdomen Skin: no rashes, warm and dry Psychiatric: Orientation: alert and oriented x 3 Results & Data Results & Data ([facility]) Vital Signs (Past 12 Hours) Vital Signs Temp Pulse Pulse Resp BP Pulse Ox 09/12/20 16:21 36.6 C 75 18 111/66 95 09/12/20 08:47 37.4 C 103 H 20 125/76 95 Laboratory Results Laboratory Results - last 24 hr 09/12/20 09/12/20 05:40 05:40 WBC 5.41 RBC 2.83 L Hgb 7.7 L Hct 25.0 L MCV 88.3 MCH 27.2 MCHC 30.8 L RDW Std Deviation 47.7 H RDW Coeff of Inge 14.7 H Plt Count 493 H MPV 8.2 Sodium 139 Potassium 3.8 Chloride 102 Carbon Dioxide 33 H Anion Gap 4.0 BUN 19 H Creatinine 0.86 Est Cr Clr Drug Dosing 64.4 Est GFR ( Amer) 77.1 Est GFR (Non-Af Amer) 66.6 BUN/Creatinine Ratio 22.4 H Glucose 80 Calcium 8.8 AST 14 L ALT 30 recent blood cx's neg PG Care Time/CCT Total # of Minutes Spent Total Time Spent with Patient: Total time spent is greater than 50% in coordination of care (as documented) at patient's floor/unit and/or counseling patient: Coding Level of Care Code 83388 Subseq Hosp Care Lvl 3 Diagnoses Pneumonia due to COVID-19 virus U07.1; J12.89 Acute hypoxemic respiratory failure J96.01 (HFpEF) heart failure with preserved ejection fraction I50.31 Heart failure chronicity: acute UTI (urinary tract infection) N30.00 Hematuria presence: without hematuria Urinary tract infection type: acute cystitis VRE infection (vancomycin resistant Enterococcus) A49.1; Z16.21 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 Follicular lymphoma type: unspecified follicular type Lymphoma site: unspecified region Chronic pain syndrome G89.4 Moderate aortic stenosis I35.0 Anemia D64.9 Anemia type: unspecified type Gram-negative bacteremia R78.81 Hypertension I10 Hypertension type: essential hypertension Impaired fasting glucose R73.01 Presence of intrathecal pump Z96.89 Depression F32.9 Depression Type: unspecified DVT prophylaxis Z29.9 (1) UTI (urinary tract infection) Hematuria presence: without hematuria Urinary tract infection type: acute cystitis Qualified Code(s): N30.00 - Acute cystitis without hematuria (2) (HFpEF) heart failure with preserved ejection fraction Heart failure chronicity: acute Qualified Code(s): I50.31 - Acute diastolic (congestive) heart failure (3) Anemia Anemia type: unspecified type Qualified Code(s): D64.9 - Anemia, unspecified (4) Depression Depression Type: unspecified Qualified Code(s): F32.9 - Major depressive disorder, single episode, unspecified (5) Follicular lymphoma Follicular lymphoma type: unspecified follicular type Lymphoma site: unspecified region Qualified Code(s): C82.90 - Follicular lymphoma, unspecified, unspecified site (6) Hypertension Hypertension type: essential hypertension Qualified Code(s): I10 - Essential (primary) hypertension
[2020-09-12] MEDS: traZODone HCL 50 MG TAB PO PRN (21:40)
[2020-09-13] MEDS: HEPARIN SOD 5,000 UNIT/0.5 ML VIAL SQ SCH ×3 (05:15→22:09)
[2020-09-13] MEDS: ACETAMINOPHEN 500 MG TAB PO PRN ×2 (05:15→08:53)
[2020-09-13] MEDS: PANTOprazole 40 MG TAB PO SCH (05:15)
[2020-09-13 06:27] LABS: Basophils # (auto) 0.01 K/uL (0-0.2); Basophils % (auto) 0.2 %; Eosinophils # (auto) 0.03 K/uL (0-0.5); Eosinophils % (auto) 0.5 %; Hematocrit (blood only) 26.7 % (37-47); Immature Granulocytes # (auto) 0.01 K/uL (0.00-0.02); Immature Granulocytes % (auto) 0.2 %; Lymphocytes # (auto) 1.36 K/uL (1.2-3.4); Lymphocytes % (auto) 20.8 %; Mean Corpuscular Hemoglobin 26.7 pg (25-34); Mean Platelet Volume 8.5 fL (7.4-10.4); Monocytes % (auto) 7.6 %; Neutrophils # (auto) 4.63 K/uL (1.4-6.5); Neutrophils % (auto) 70.7 %; Platelet Count 581 K/uL (130-400); RDW Coefficient of Variation 14.8 % (11.5-14.5); RDW Standard Deviation 48.3 fL (36.4-46.3); White Blood Count 6.54 K/uL (4.8-10.8)
[2020-09-13 06:35] LABS: D Dimer 1690 ug/L FEU (0-500)
[2020-09-13 06:51] LABS: BUN Creatinine Ratio 22.4 (10-20); Calcium 9.2 mg/dl (8.5-10.1); Creatinine Clr Calc Pharmacy 73.9 ml/min; Est GFR (Non-African American) 78.5; Potassium 4.1 mmol/L (3.5-5.1)
[2020-09-13] MEDS ORDERED: FUROSEMIDE 20 MG in SYRINGE 0 ML IV ONE ×2 (08:00→16:15)
[2020-09-13] MEDS: DAPTOmycin 250 MG in SYRINGE 0 ML IV SCH (08:39)
[2020-09-13] MEDS: dexAMETHasone 6 MG in SYRINGE 0 ML IV SCH (08:39)
[2020-09-13] MEDS: GABAPENTIN 100 MG CAP PO SCH (08:40)
[2020-09-13] MEDS: REMDESIVIR 100mg: Days 2-5 IV SCH (08:40)
[2020-09-13] MEDS: AMOXICILLIN 500 MG CAP PO SCH ×3 (08:40→20:34)
[2020-09-13] MEDS: DULoxetine HCL 60 MG CAP PO SCH (08:40)
[2020-09-13] MEDS: ASPIRIN 81 MG ECTAB PO SCH (08:41)
[2020-09-13] MEDS: CHOLECALCIFEROL 1,000 UNITS 25 MCG TAB PO SCH (08:41)
[2020-09-13] MEDS: FERROUS SULFATE 325 MG TAB PO SCH (08:41)
[2020-09-13] MEDS: MULTIVITAMIN TAB PO SCH (08:41)
[2020-09-13] MEDS: LORATADINE 10 MG TAB PO SCH (08:41)
[2020-09-13] MEDS: CALCIUM 600MG + VIT D 400 IU TAB PO SCH (08:41)
[2020-09-13] MEDS: guaiFENesin 600 MG TABCR PO SCH ×2 (08:41→20:33)
[2020-09-13] MEDS: DOCUSATE SODIUM/SENNA 50/8.6MG TAB PO SCH (08:42)
[2020-09-13] MEDS: POLYETHYLENE (MIRALAX) 17 GM PACK PO SCH (08:42)
[2020-09-13] MEDS: DOCUSATE SODIUM 100 MG CAP PO SCH ×2 (08:42→20:36)
[2020-09-13] MEDS: CYCLOBENZAPRINE HCL 5 MG TAB PO PRN ×2 (08:45→17:28)
[2020-09-13] MEDS: POTASSIUM CHLORIDE 10 MEQ TABCR PO SCH ×2 (08:53→21:54)
[2020-09-13] MEDS: NSS 30mL Flush, Days 1-5 IV SCH (09:40)
--- NOTE | 2020-09-13 16:09 | Hospitalist Progress Note ---
Date of Service September 13, 2020 Assessment & Plan (1) Pneumonia due to COVID-19 virus: Improved although she is coughing more today, and she sounds somewhat more course / crackly today. [id number] she reports feeling better on general scale. D-dimer trend noted. Cont 10-day course of decadron 6mg daily, day #4 today. Cont remdesivir x 5 days - day #4 today. (Cr and AST/ALT remain wnl) s/p convalescent plasma earlier this week. Cont flutter valve. Cont mucinex. Cont Bronchodilators prn. Wean fiO2 as tolerated. Repeat cxr in am. Repeat labs in am. (2) Acute hypoxemic respiratory failure: 2nd to COVID-19 pneumonia and acute diastolic CHF/HFpEF. Improving. Diurese. Supportive care for COVID-19. (3) (HFpEF) heart failure with preserved ejection fraction: ACUTE. Cont diuresis - 2 doses of IV lasix today. BUN & Cr remain stable in face of diuresis. Echo from 08/2020 noted (preserved EF, normal RV function, etc). (4) UTI (urinary tract infection): Had presumed e.coli UTI with resulting septicemia/septic shock during prior admission. Was to finish a course of oral omnicef for such, stop date 09/11/20, as outpatient at [facility]. Blood cultures this admission negative. Was placed on IV zosyn on 09/05 upon re-admission to [facility]. This would have covered prior UTI and prior positive blood cultures. Zosyn now stopped. 2 separate urine cultures with VRE and alpha strep. Rather odd in light of clinical picture. Daptomycin IV for VRE. Day #4 of such. Plan 5-7 day course. Amox for alpha strep. Day #3 of such; plan 3 days. (5) VRE infection (vancomycin resistant Enterococcus): UTI. see above. (6) Follicular lymphoma: Recent diagnosis. Follows with Dr Verde. Daily CBC. (7) Chronic pain syndrome: Follows with pain management. Has intrathecal pain pump. Decadron for COVID helping back. (8) Moderate aortic stenosis: Noted. (9) Anemia: Hb 8 today. Repeat H/H in am. If Hb <7 will Tx PRBCs. Anemia likely multifactorial. (10) Gram-negative bacteremia: 2nd e.coli during prior admission in August. presumed source - urine/UTI. see above. resolved. (11) Hypertension: BPs wnl on no BP meds. (12) Impaired fasting glucose: Previous a1c 5.2%. Pre-DM resolved. (13) Presence of intrathecal pump: noted for chronic back pain when steroid course for COVID is complete she is asking for additional pain control so she can tolerate PT and rehab will review PDMP and speak with pain management in meantime will increase gabapentin to 300mg BID (14) Depression: cont cymbalta cont trazodone (15) DVT prophylaxis: heparin 7500 units TID given increased risk of DVT in face of COVID PT, OT rosita left message for daughter - 09/10/20 and 09/11/20 spoke with daughter, Radha, on phone (# [phone]) yesterday and today extensive update given Admission and Anticipated Discharge Date Admission Date: September 07, 2020 Subjective patient coughing during the visit. she reports it is modestly productive. denies dyspnea at rest or orthopnea. mild MEEHAN with walking in room. appetite "fair." no chest pain. no abd pain. chronic back pain is controlled/better than normal. overall feels better than yesterday. Review of Systems Constitutional: + fatigue and + anorexia; no fever and no chills Respiratory: no hemoptysis and no wheezing Cardiovascular: + edema; no chest pain Gastrointestinal: + abdominal pain Physical Exam Constitutional: + ill appearing; no acute distress and no altered mental status ENMT: external ear and nose normal, oropharynx normal Respiratory: no respiratory distress Auscultation: + diminished lung sounds (B/l bases) and + rales (B/l bases); no wheezes Cardiovascular: Rate/Rhythm: regular rate and regular rhythm Heart Sounds: normal S1, normal S2 and + murmur (2/6 holosystolic RUSB ) Vessels: posterior tibial pulses present and dorsalis pedis pulses present; no JVD Extremities: + edema (2+ b/l legs) Gastrointestinal (Abdomen): normal bowel sounds, soft, nontender, no hepatosplenomegaly Skin: no rashes, warm and dry Psychiatric: Orientation: alert and oriented x 3 Results & Data Results & Data ([facility]) Vital Signs (Past 12 Hours) Vital Signs Temp Pulse Resp BP Pulse Ox 09/13/20 11:48 36.9 C 69 18 116/62 91 09/13/20 07:48 36.8 C 85 18 117/66 92 Laboratory Results Laboratory Results - last 24 hr 09/13/20 09/13/20 09/13/20 05:39 05:39 05:39 WBC 6.54 RBC 3.00 L Hgb 8.0 L Hct 26.7 L MCV 89.0 MCH 26.7 MCHC 30.0 L RDW Std Deviation 48.3 H RDW Coeff of Inge 14.8 H Plt Count 581 H MPV 8.5 Immature Gran % (Auto) 0.2 Neut % (Auto) 70.7 Lymph % (Auto) 20.8 Marin % (Auto) 7.6 Eos % (Auto) 0.5 Baso % (Auto) 0.2 Neut # (Auto) 4.63 Lymph # (Auto) 1.36 Marin # (Auto) 0.50 Eos # (Auto) 0.03 Baso # (Auto) 0.01 Immature Gran # (Auto) 0.01 D-Dimer 1690 H* Sodium 140 Potassium 4.1 Chloride 103 Carbon Dioxide 32 Anion Gap 5.0 BUN 17 Creatinine 0.75 Est Cr Clr Drug Dosing 73.9 Est GFR ( Amer) 91.0 Est GFR (Non-Af Amer) 78.5 BUN/Creatinine Ratio 22.4 H Glucose 78 Calcium 9.2 AST 16 ALT 28 PG Care Time/CCT Total # of Minutes Spent Total Time Spent with Patient: Total time spent is greater than 50% in coordination of care (as documented) at patient's floor/unit and/or counseling patient: Coding Level of Care Code 34066 Subseq Hosp Care Lvl 3 Diagnoses Pneumonia due to COVID-19 virus U07.1; J12.89 Acute hypoxemic respiratory failure J96.01 (HFpEF) heart failure with preserved ejection fraction I50.31 Heart failure chronicity: acute UTI (urinary tract infection) N30.00 Hematuria presence: without hematuria Urinary tract infection type: acute cystitis VRE infection (vancomycin resistant Enterococcus) A49.1; Z16.21 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 Follicular lymphoma type: unspecified follicular type Lymphoma site: unspecified region Chronic pain syndrome G89.4 Moderate aortic stenosis I35.0 Anemia D64.9 Anemia type: unspecified type Gram-negative bacteremia R78.81 Hypertension I10 Hypertension type: essential hypertension Impaired fasting glucose R73.01 Presence of intrathecal pump Z96.89 Depression F32.9 Depression Type: unspecified DVT prophylaxis Z29.9 (1) UTI (urinary tract infection) Hematuria presence: without hematuria Urinary tract infection type: acute cystitis Qualified Code(s): N30.00 - Acute cystitis without hematuria (2) (HFpEF) heart failure with preserved ejection fraction Heart failure chronicity: acute Qualified Code(s): I50.31 - Acute diastolic (congestive) heart failure (3) Anemia Anemia type: unspecified type Qualified Code(s): D64.9 - Anemia, unspecified (4) Depression Depression Type: unspecified Qualified Code(s): F32.9 - Major depressive disorder, single episode, unspecified (5) Follicular lymphoma Follicular lymphoma type: unspecified follicular type Lymphoma site: unspecified region Qualified Code(s): C82.90 - Follicular lymphoma, unspecified, unspecified site (6) Hypertension Hypertension type: essential hypertension Qualified Code(s): I10 - Essential (primary) hypertension
[2020-09-13] MEDS: GABAPENTIN 300 MG CAP PO SCH (20:34)
[2020-09-13] MEDS: traZODone HCL 50 MG TAB PO PRN (21:54)
[2020-09-14] MEDS: oxyCODONE/ACETAMINOPHEN 5mg/325mg TAB PO PRN (00:47)
[2020-09-14] MEDS: CYCLOBENZAPRINE HCL 5 MG TAB PO PRN ×2 (00:47→08:10)
[2020-09-14] MEDS: PANTOprazole 40 MG TAB PO SCH (06:01)
[2020-09-14] MEDS: HEPARIN SOD 5,000 UNIT/0.5 ML VIAL SQ SCH ×3 (06:21→22:07)
[2020-09-14 06:33] LABS: Hemoglobin 8.8 g/dL (12.0-16.0)
[2020-09-14 06:37] LABS: BUN Creatinine Ratio 24.2 (10-20); Calcium 9.4 mg/dl (8.5-10.1); Creatinine Clr Calc Pharmacy 68.4 ml/min; Est GFR (African American) 82.9; Est GFR (Non-African American) 71.5; Potassium 3.5 mmol/L (3.5-5.1)
[2020-09-14] MEDS: REMDESIVIR 100mg: Days 2-5 IV SCH (08:05)
[2020-09-14] MEDS: POLYETHYLENE (MIRALAX) 17 GM PACK PO SCH (08:06)
[2020-09-14] MEDS: dexAMETHasone 6 MG in SYRINGE 0 ML IV SCH (08:06)
[2020-09-14] MEDS: DOCUSATE SODIUM/SENNA 50/8.6MG TAB PO SCH (08:06)
[2020-09-14] MEDS: FERROUS SULFATE 325 MG TAB PO SCH (08:07)
[2020-09-14] MEDS: LORATADINE 10 MG TAB PO SCH (08:07)
[2020-09-14] MEDS: MULTIVITAMIN TAB PO SCH (08:07)
[2020-09-14] MEDS: CHOLECALCIFEROL 1,000 UNITS 25 MCG TAB PO SCH (08:07)
[2020-09-14] MEDS: ASPIRIN 81 MG ECTAB PO SCH (08:07)
[2020-09-14] MEDS: DOCUSATE SODIUM 100 MG CAP PO SCH ×2 (08:07→22:04)
[2020-09-14] MEDS: CALCIUM 600MG + VIT D 400 IU TAB PO SCH (08:07)
[2020-09-14] MEDS: guaiFENesin 600 MG TABCR PO SCH ×2 (08:08→22:56)
[2020-09-14] MEDS: AMOXICILLIN 500 MG CAP PO SCH (08:08)
[2020-09-14] MEDS: DULoxetine HCL 60 MG CAP PO SCH (08:08)
[2020-09-14] MEDS: DAPTOmycin 250 MG in SYRINGE 0 ML IV SCH (08:09)
[2020-09-14] MEDS: GABAPENTIN 300 MG CAP PO SCH ×2 (08:10→22:09)
[2020-09-14] MEDS: POTASSIUM CHLORIDE 10 MEQ TABCR PO SCH (08:21)
[2020-09-14] MEDS ORDERED: POTASSIUM CHLORIDE CRTAB 20 MEQ TABCR PO STA (08:34)
--- NOTE | 2020-09-14 08:40 | XRay Report ---
XR chest 1V portable CLINICAL HISTORY: COVID-19 infection, CHF. COMPARISON STUDY: 09/09/2020 FINDINGS: The cardiac and mediastinal contours remain stable. There are low lung volumes. There is st able interstitial thickening. There is no lobar consolidation.[ IMPRESSION: Stable interstitial thickening. No evidence of lobar consolidation. Low lung volumes. ACT 112: Negative or not required by law. Electronically signed by: Dat Ornelas M.D. 09/14/2020 8:39 AM
[2020-09-14] MEDS ORDERED: FUROSEMIDE 20 MG in SYRINGE 0 ML IV SCH (08:45)
[2020-09-14] MEDS: NSS 30mL Flush, Days 1-5 IV SCH (10:34)
[2020-09-14] MEDS ORDERED: FUROSEMIDE 20 MG in SYRINGE 0 ML IV ONE (17:00)
[2020-09-14] MEDS: POTASSIUM CHLORIDE CRTAB 20 MEQ TABCR PO SCH (22:08)
[2020-09-14] MEDS: traZODone HCL 50 MG TAB PO PRN (22:11)
--- NOTE | 2020-09-14 22:47 | Hospitalist Progress Note ---
Date of Service September 14, 2020 Assessment & Plan (1) Pneumonia due to COVID-19 virus: Slowly improving. Cont 10-day course of decadron 6mg daily, day #5 today. s/p remdesivir x 5 days - today is final dose. s/p convalescent plasma earlier this week. Cont flutter valve. Cont mucinex. Cont Bronchodilators prn. Wean fiO2 as tolerated. Repeat cxr today noted - no worsening from previous. (2) Acute hypoxemic respiratory failure: 2nd to COVID-19 pneumonia and acute diastolic CHF/HFpEF. Improving. Cont diuresis and supportive care for COVID-19. (3) (HFpEF) heart failure with preserved ejection fraction: ACUTE. Cont diuresis - 2 doses of IV lasix today. BUN & Cr remain stable. Needs daily weights. Echo from 08/2020 noted (preserved EF, normal RV function, etc). (4) UTI (urinary tract infection): Had presumed e.coli UTI with resulting septicemia/septic shock during prior admission. Was to finish a course of oral omnicef for such, stop date 09/11/20, as outpatient at [facility]. Blood cultures this admission negative. Was placed on IV zosyn on 09/05 upon re-admission to [facility]. This would have covered prior UTI and prior positive blood cultures. Zosyn now stopped. 2 separate urine cultures this admission with VRE and alpha strep. Rather odd in light of clinical picture. Daptomycin IV for VRE. Day #5 of such. Plan 7 day course. Amox for alpha strep. Completed 3 days of amox now off such. (5) VRE infection (vancomycin resistant Enterococcus): UTI. see above. (6) Follicular lymphoma: Recent diagnosis. Follows with Dr Verde. Daily CBC. (7) Chronic pain syndrome: Follows with pain management. Has intrathecal pain pump. Decadron for COVID helping back. (8) Moderate aortic stenosis: Noted. (9) Anemia: Hb 8.8 today. stable. (10) Gram-negative bacteremia: 2nd e.coli during prior admission in August. presumed source - urine/UTI. see above. resolved. (11) Hypertension: BPs wnl on no BP meds. (12) Impaired fasting glucose: Previous a1c 5.2%. Pre-DM resolved. (13) Presence of intrathecal pump: noted for chronic back pain when steroid course for COVID is complete she is asking for additional pain control so she can tolerate PT and rehab will review PDMP and speak with pain management increased gabapentin to 300mg BID on 09/13/20 (14) Depression: cont cymbalta cont trazodone (15) Peripheral edema: severe despite IV lasix the edema remains dopplers of legs from prior admission neg for DVT low albumin also contributing -- recheck albumin am probably has some element of venous insufficiency as well (16) DVT prophylaxis: heparin 7500 units TID given increased risk of DVT in face of COVID PT, OT evals appreciated left message for daughter - 09/10/20 and 09/11/20 spoke with daughter, Radha, on phone (# [phone]) 09/12, 09/13, and 09/14 extensive update given Admission and Anticipated Discharge Date Admission Date: September 07, 2020 Subjective no changes overnight. she said "I'm feeling good." at one point she wanted to show me how strong she is -- she jumped up out of her chair and stood without any assistance. no loss of balance. continues with dry cough -no worse than previous. denies dyspnea or MEEHAN. no chest pain or abd pain. no diarrhea. appetite fair. still requiring O2 - O2 weaned off and sats dropped to 87%. 2 L NC O2 reaaplied. back pain controlled. Review of Systems Constitutional: no fever, no chills and no body aches Respiratory: + cough and + sputum production; no wheezing Cardiovascular: no chest pain and no dyspnea on exertion Gastrointestinal: no abdominal pain, no nausea and no vomiting Physical Exam Constitutional: + frail appearing; no acute distress and no altered mental status ENMT: external ear and nose normal, oropharynx normal Respiratory: no respiratory distress Auscultation: + diminished lung sounds (B/l bases but overall airation improved from previous) and + rales (Left base); no wheezes Cardiovascular: Rate/Rhythm: regular rate and regular rhythm Heart Sounds: normal S1, normal S2 and + murmur (2/6 holosystolic RUSB ) Vessels: posterior tibial pulses present and dorsalis pedis pulses present; no JVD Extremities: + edema (3+ b/l legs - no change) Gastrointestinal (Abdomen): normal bowel sounds, soft, nontender, no hepatosplenomegaly Skin: no rashes, warm and dry Psychiatric: Orientation: alert and oriented x 3 Results & Data Results & Data ([facility]) Vital Signs (Past 12 Hours) Vital Signs Temp Pulse Pulse Resp BP BP Pulse Ox 09/14/20 21:35 37.2 C 90 18 127/79 96 09/14/20 19:52 36.7 C 97 H 16 115/68 93 09/14/20 16:06 36.8 C 91 H 24 105/66 92 Laboratory Results Laboratory Results - last 24 hr 09/14/20 09/14/20 05:37 05:44 Hgb 8.8 L Hct 28.0 L Sodium 138 Potassium 3.5 Chloride 99 Carbon Dioxide 32 Anion Gap 8.0 BUN 20 H Creatinine 0.81 Est Cr Clr Drug Dosing 68.4 Est GFR ( Amer) 82.9 Est GFR (Non-Af Amer) 71.5 BUN/Creatinine Ratio 24.2 H Glucose 79 Calcium 9.4 AST 15 ALT 27 PG Care Time/CCT Total # of Minutes Spent Total Time Spent with Patient: Total time spent is greater than 50% in coordination of care (as documented) at patient's floor/unit and/or counseling patient: Coding Level of Care Code 21656 Subseq Hosp Care Lvl 2 Diagnoses Pneumonia due to COVID-19 virus U07.1; J12.89 Acute hypoxemic respiratory failure J96.01 (HFpEF) heart failure with preserved ejection fraction I50.31 Heart failure chronicity: acute UTI (urinary tract infection) N30.00 Hematuria presence: without hematuria Urinary tract infection type: acute cystitis VRE infection (vancomycin resistant Enterococcus) A49.1; Z16.21 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 Follicular lymphoma type: unspecified follicular type Lymphoma site: unspecified region Chronic pain syndrome G89.4 Moderate aortic stenosis I35.0 Anemia D64.9 Anemia type: unspecified type Gram-negative bacteremia R78.81 Hypertension I10 Hypertension type: essential hypertension Impaired fasting glucose R73.01 Presence of intrathecal pump Z96.89 Depression F32.9 Depression Type: unspecified Peripheral edema R60.9 DVT prophylaxis Z29.9 (1) UTI (urinary tract infection) Hematuria presence: without hematuria Urinary tract infection type: acute cystitis Qualified Code(s): N30.00 - Acute cystitis without hematuria (2) (HFpEF) heart failure with preserved ejection fraction Heart failure chronicity: acute Qualified Code(s): I50.31 - Acute diastolic (congestive) heart failure (3) Anemia Anemia type: unspecified type Qualified Code(s): D64.9 - Anemia, unspecified (4) Depression Depression Type: unspecified Qualified Code(s): F32.9 - Major depressive disorder, single episode, unspecified (5) Follicular lymphoma Follicular lymphoma type: unspecified follicular type Lymphoma site: unspecified region Qualified Code(s): C82.90 - Follicular lymphoma, unspecified, unspecified site (6) Hypertension Hypertension type: essential hypertension Qualified Code(s): I10 - Essential (primary) hypertension
[2020-09-15] MEDS: PANTOprazole 40 MG TAB PO SCH ×2 (06:30→10:50)
[2020-09-15] MEDS: HEPARIN SOD 5,000 UNIT/0.5 ML VIAL SQ SCH ×3 (06:30→20:23)
[2020-09-15 07:28] LABS: Hematocrit (blood only) 28.6 % (37-47); Mean Corpuscular Hemoglobin 27.4 pg (25-34); Mean Corpuscular Hgb Conc 31.5 g/dL (32-36); Mean Corpuscular Volume 86.9 fL (80-100); Mean Platelet Volume 8.3 fL (7.4-10.4); Platelet Count 476 K/uL (130-400); RDW Coefficient of Variation 14.6 % (11.5-14.5); RDW Standard Deviation 45.8 fL (36.4-46.3); Red Blood Count 3.29 M/uL (4.2-5.4); White Blood Count 5.98 K/uL (4.8-10.8)
[2020-09-15 07:46] LABS: BUN Creatinine Ratio 24.9 (10-20); Calcium 9.5 mg/dl (8.5-10.1); Creatinine Clr Calc Pharmacy 63.4 ml/min; Est GFR (African American) 79.4; Est GFR (Non-African American) 68.5
[2020-09-15 07:55] LABS: Albumin Level 2.5 gm/dl (3.4-5.0)
[2020-09-15] MEDS: DOCUSATE SODIUM 100 MG CAP PO SCH ×2 (09:18→20:27)
[2020-09-15] MEDS: POLYETHYLENE (MIRALAX) 17 GM PACK PO SCH (09:19)
[2020-09-15] MEDS: guaiFENesin 600 MG TABCR PO SCH ×2 (09:20→20:24)
[2020-09-15] MEDS: DOCUSATE SODIUM/SENNA 50/8.6MG TAB PO SCH (09:22)
[2020-09-15] MEDS: dexAMETHasone 6 MG in SYRINGE 0 ML IV SCH (09:43)
[2020-09-15] MEDS ORDERED: FUROSEMIDE 20 MG in SYRINGE 0 ML IV ONE (10:15)
[2020-09-15] MEDS: LORATADINE 10 MG TAB PO SCH (10:50)
[2020-09-15] MEDS: DULoxetine HCL 60 MG CAP PO SCH (10:50)
[2020-09-15] MEDS: POTASSIUM CHLORIDE CRTAB 20 MEQ TABCR PO SCH ×2 (10:50→20:32)
[2020-09-15] MEDS: CALCIUM 600MG + VIT D 400 IU TAB PO SCH (10:50)
[2020-09-15] MEDS: GABAPENTIN 300 MG CAP PO SCH ×2 (10:50→20:24)
[2020-09-15] MEDS: CHOLECALCIFEROL 1,000 UNITS 25 MCG TAB PO SCH (10:50)
[2020-09-15] MEDS: FERROUS SULFATE 325 MG TAB PO SCH (10:50)
[2020-09-15] MEDS: DAPTOmycin 250 MG in SYRINGE 0 ML IV SCH (10:50)
[2020-09-15] MEDS: MULTIVITAMIN TAB PO SCH (10:50)
[2020-09-15] MEDS: CYCLOBENZAPRINE HCL 5 MG TAB PO PRN (11:01)
[2020-09-15] MEDS: ASPIRIN 81 MG ECTAB PO SCH (11:16)
[2020-09-15] MEDS: traZODone HCL 50 MG TAB PO PRN (21:53)
--- NOTE | 2020-09-15 22:42 | Hospitalist Progress Note ---
Date of Service September 15, 2020 Assessment & Plan (1) Pneumonia due to COVID-19 virus: IMPROVING NICELY. Cont 10-day course of decadron 6mg daily, day #6 today. s/p remdesivir x 5 days. s/p convalescent plasma earlier this week. Cont flutter valve. Cont mucinex. Cont Bronchodilators prn. Wean fiO2 as tolerated. Pleased w/ her progress. (2) Acute hypoxemic respiratory failure: 2nd to COVID-19 pneumonia and acute diastolic CHF/HFpEF. Improving/resolving. Cont diuresis and supportive care for COVID-19. (3) (HFpEF) heart failure with preserved ejection fraction: ACUTE. Cont diuresis but only give 1 dose of IV lasix today. BUN & Cr remain stable. Needs daily weights -- weight today is MARKEDLY IMPROVED from admission. Legs much better today. Repeat BMP am. Echo from 08/2020 noted (preserved EF, normal RV function, etc). (4) UTI (urinary tract infection): Had presumed e.coli UTI with resulting septicemia/septic shock during prior admission. Was to finish a course of oral omnicef for such, stop date 09/11/20, as outpatient at [facility]. Blood cultures this admission negative. Was placed on IV zosyn on 09/05 upon re-admission to [facility]. This would have covered prior UTI and prior positive blood cultures. Zosyn now stopped. 2 separate urine cultures this admission with VRE and alpha strep. Rather odd in light of clinical picture. Daptomycin IV for VRE. Day #6 of such. Plan 7 day course. Amox for alpha strep. Completed 3 days of amox now off such. (5) VRE infection (vancomycin resistant Enterococcus): UTI. see above. (6) Follicular lymphoma: Recent diagnosis. Follows with Dr Verde. follows CBC. (7) Chronic pain syndrome: Follows with pain management. Has intrathecal pain pump. see HPI. Decadron for COVID helping back. stop percocet. start oral dilaudid 2mg po q6h prn breakthrough. (8) Moderate aortic stenosis: Noted. (9) Anemia: Hbs have been stable. 2nd to blood draws, lymphoma, etc. (10) Gram-negative bacteremia: 2nd e.coli during prior admission in August. presumed source - urine/UTI. see above. resolved. (11) Hypertension: BPs wnl on no BP meds. (12) Impaired fasting glucose: Previous a1c 5.2%. Pre-DM resolved. (13) Presence of intrathecal pump: noted for chronic back pain when steroid course for COVID is complete she is asking for additional pain control so she can tolerate PT and rehab increased gabapentin to 300mg BID on 09/13/20 start dilaudid 2mg PO q6h prn. stop percocet. (14) Depression: cont cymbalta cont trazodone (15) Peripheral edema: severe but improving with IV lasix dopplers of legs from prior admission neg for DVT low albumin also contributing - probably has some element of venous insufficiency as well (16) DVT prophylaxis: heparin 7500 units TID given increased risk of DVT in face of COVID platelets - 476 today PT, OT evals appreciated left message for daughter - 09/10/20 and 09/11/20 spoke with daughter, Radha, on phone (# [phone]) 09/12, 09/13, and 09/14 extensive update given each time will update daughter on Thursday Admission and Anticipated Discharge Date Admission Date: September 07, 2020 Subjective patient's cough much improved; minimal today. no dyspnea at rest or exertion. no chest pain. no abd pain. appetite modestly improved today. main concern is that she is worried her back pain will worsen once steroids for COVID have finished. she asks that we start to think about what meds to offer her for chronic low back pain. recent interrogation of pain pump in August showed -- pump gives dilaudid, baclofen, and bupivaine refill needed by end of September. she states "percocet sometimes doesn't work". Review of Systems Constitutional: no fever, no chills, no fatigue and no anorexia Respiratory: + cough and + sputum production (mild) Cardiovascular: no chest pain Gastrointestinal: no abdominal pain, no nausea, no vomiting and no diarrhea/loose stools Physical Exam Constitutional: + frail appearing; no acute distress and no altered mental status ENMT: external ear and nose normal, oropharynx normal Respiratory: no respiratory distress Auscultation: + diminished lung sounds (right base) and + rales (left base - mild- MUCH IMPROVED); no wheezes Cardiovascular: Rate/Rhythm: regular rate and regular rhythm Heart Sounds: normal S1, normal S2 and + murmur (2/6 holosystolic RUSB ) Vessels: posterior tibial pulses present and dorsalis pedis pulses present; no JVD Extremities: + edema (1+ b/l legs - much improved today ) Gastrointestinal (Abdomen): normal bowel sounds, soft, nontender, no hepatosplenomegaly Skin: no rashes, warm and dry Psychiatric: Orientation: alert and oriented x 3 Results & Data Results & Data ([facility]) Vital Signs (Past 12 Hours) Vital Signs Temp Pulse Pulse Resp BP Pulse Ox 09/15/20 21:53 36.6 C 89 17 131/70 98 09/15/20 14:45 37 C 99 H 19 133/77 96 Laboratory Results Laboratory Results - last 24 hr 09/15/20 09/15/20 09/15/20 07:14 07:14 07:14 WBC 5.98 RBC 3.29 L Hgb 9.0 L Hct 28.6 L MCV 86.9 MCH 27.4 MCHC 31.5 L RDW Std Deviation 45.8 RDW Coeff of Inge 14.6 H Plt Count 476 H MPV 8.3 Sodium 138 Potassium 4.0 Chloride 101 Carbon Dioxide 34 H Anion Gap 3.0 BUN 21 H Creatinine 0.84 Est Cr Clr Drug Dosing 63.4 Est GFR ( Amer) 79.4 Est GFR (Non-Af Amer) 68.5 BUN/Creatinine Ratio 24.9 H Glucose 85 Calcium 9.5 Albumin 2.5 L Cancelled PG Care Time/CCT Total # of Minutes Spent Total Time Spent with Patient: Total time spent is greater than 50% in coordination of care (as documented) at patient's floor/unit and/or counseling patient: Coding Level of Care Code 80007 Subseq Hosp Care Lvl 2 Diagnoses Pneumonia due to COVID-19 virus U07.1; J12.89 Acute hypoxemic respiratory failure J96.01 (HFpEF) heart failure with preserved ejection fraction I50.31 Heart failure chronicity: acute UTI (urinary tract infection) N30.00 Hematuria presence: without hematuria Urinary tract infection type: acute cystitis VRE infection (vancomycin resistant Enterococcus) A49.1; Z16.21 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 Follicular lymphoma type: unspecified follicular type Lymphoma site: unspecified region Chronic pain syndrome G89.4 Moderate aortic stenosis I35.0 Anemia D64.9 Anemia type: unspecified type Gram-negative bacteremia R78.81 Hypertension I10 Hypertension type: essential hypertension Impaired fasting glucose R73.01 Presence of intrathecal pump Z96.89 Depression F32.9 Depression Type: unspecified Peripheral edema R60.9 DVT prophylaxis Z29.9 (1) UTI (urinary tract infection) Hematuria presence: without hematuria Urinary tract infection type: acute cystitis Qualified Code(s): N30.00 - Acute cystitis without hematuria (2) (HFpEF) heart failure with preserved ejection fraction Heart failure chronicity: acute Qualified Code(s): I50.31 - Acute diastolic (congestive) heart failure (3) Anemia Anemia type: unspecified type Qualified Code(s): D64.9 - Anemia, unspecified (4) Depression Depression Type: unspecified Qualified Code(s): F32.9 - Major depressive disorder, single episode, unspecified (5) Follicular lymphoma Follicular lymphoma type: unspecified follicular type Lymphoma site: unspecified region Qualified Code(s): C82.90 - Follicular lymphoma, unspecified, unspecified site (6) Hypertension Hypertension type: essential hypertension Qualified Code(s): I10 - Essential (primary) hypertension
[2020-09-16] MEDS: HEPARIN SOD 5,000 UNIT/0.5 ML VIAL SQ SCH ×3 (05:58→21:55)
[2020-09-16] MEDS: dexAMETHasone 6 MG in SYRINGE 0 ML IV SCH (07:53)
[2020-09-16] MEDS: DAPTOmycin 250 MG in SYRINGE 0 ML IV SCH (07:53)
[2020-09-16] MEDS: MULTIVITAMIN TAB PO SCH (07:53)
[2020-09-16] MEDS: CHOLECALCIFEROL 1,000 UNITS 25 MCG TAB PO SCH (07:54)
[2020-09-16] MEDS: FERROUS SULFATE 325 MG TAB PO SCH (07:54)
[2020-09-16] MEDS: DULoxetine HCL 60 MG CAP PO SCH (07:54)
[2020-09-16] MEDS: GABAPENTIN 300 MG CAP PO SCH ×2 (07:54→21:55)
[2020-09-16] MEDS: CALCIUM 600MG + VIT D 400 IU TAB PO SCH (07:54)
[2020-09-16] MEDS: DOCUSATE SODIUM 100 MG CAP PO SCH ×2 (07:55→21:56)
[2020-09-16] MEDS: PANTOprazole 40 MG TAB PO SCH (07:55)
[2020-09-16] MEDS: LORATADINE 10 MG TAB PO SCH (07:55)
[2020-09-16] MEDS: POLYETHYLENE (MIRALAX) 17 GM PACK PO SCH (07:56)
[2020-09-16] MEDS: DOCUSATE SODIUM/SENNA 50/8.6MG TAB PO SCH (07:56)
[2020-09-16] MEDS: ASPIRIN 81 MG ECTAB PO SCH (07:56)
[2020-09-16 08:23] LABS: BUN Creatinine Ratio 26.7 (10-20); Calcium 9.9 mg/dl (8.5-10.1); Creatinine Clr Calc Pharmacy 67.6 ml/min; Est GFR (African American) 85.5; Est GFR (Non-African American) 73.7; Magnesium 1.9 mg/dl (1.8-2.4); Potassium 3.8 mmol/L (3.5-5.1)
[2020-09-16] MEDS: POTASSIUM CHLORIDE CRTAB 20 MEQ TABCR PO SCH ×2 (08:42→21:56)
[2020-09-16] MEDS ORDERED: HYDROmorphone HCL 2 MG TAB PO PRN (10:42)
[2020-09-16] MEDS ORDERED: FUROSEMIDE 20 MG in SYRINGE 0 ML IV ONE (11:15)
[2020-09-16] MEDS: guaiFENesin 600 MG TABCR PO SCH (21:55)
[2020-09-16] MEDS: traZODone HCL 50 MG TAB PO PRN (21:55)
--- NOTE | 2020-09-16 22:53 | Hospitalist Progress Note ---
Date of Service September 16, 2020 Assessment & Plan (1) Pneumonia due to COVID-19 virus: IMPROVING NICELY. Clinically resolving. Cont 10-day course of decadron 6mg daily, day #7 today. s/p remdesivir x 5 days. s/p convalescent plasma earlier this week. Cont flutter valve. Cont mucinex. Cont Bronchodilators prn. Wean fiO2 as tolerated. NO signs of superimposed bacterial process. (2) Acute hypoxemic respiratory failure: 2nd to COVID-19 pneumonia and acute diastolic CHF/HFpEF. Improving/resolving. Other than peripheral edema - much of which is chronic - she appears euvolemic. SIGNIFICANT WEIGHT LOSS WITH DIURESIS while here. Will stop IV lasix today. Cont supportive care for COVID-19. (3) (HFpEF) heart failure with preserved ejection fraction: ACUTE. RESOLVED. Stop IV lasix. BUN & Cr remain stable. Repeat BMP am. Echo from 08/2020 noted (preserved EF, normal RV function, etc). Only edema is LE edema - much of which is chronic from venous insufficiency. (4) UTI (urinary tract infection): Had presumed e.coli UTI with resulting septicemia/septic shock during prior admission. Was to finish a course of oral omnicef for such, stop date 09/11/20, as outpatient at [facility]. Blood cultures this admission negative. Was placed on IV zosyn on 09/05 upon re-admission to [facility]. This would have covered prior UTI and prior positive blood cultures. Zosyn now stopped. 2 separate urine cultures this admission with VRE and alpha strep. Rather odd in light of clinical picture. Daptomycin IV for VRE. Day #7 of such. Plan 7 day course. Thus, stop dapto after today's dose. Amox for alpha strep. Completed 3 days of amox now off such. (5) VRE infection (vancomycin resistant Enterococcus): UTI. see above. (6) Follicular lymphoma: Recent diagnosis. Follows with Dr Verde. follow CBC every 2-3 days for stability. (7) Chronic pain syndrome: Follows with pain management. Has intrathecal pain pump. Meds in pump - dilaudid, bupivicaine, and baclofen. Decadron for COVID helping acute/chronic back pain. start oral dilaudid 2mg po q6h prn breakthrough pain. (8) Moderate aortic stenosis: Noted. (9) Anemia: Hbs have been stable. 2nd to blood draws, lymphoma, etc. (10) Gram-negative bacteremia: 2nd e.coli during prior admission in August. presumed source - urine/UTI. see above. resolved. (11) Hypertension: BPs wnl on no BP meds. (12) Impaired fasting glucose: Previous a1c 5.2%. Pre-DM resolved. (13) Presence of intrathecal pump: noted for chronic back pain when steroid course for COVID is complete she is asking for additional pain c ontrol so she can tolerate PT and rehab increased gabapentin to 300mg BID on 09/13/20 started dilaudid 2mg PO q6h prn. stopped percocet - patient states it doesn't help. (14) Depression: cont cymbalta cont trazodone (15) Peripheral edema: severe but improved with IV lasix has varicose veins and venous insufficiency at baseline always has some element of edema per patient dopplers of legs from prior admission neg for DVT low albumin could also be contributing now that she is otherwise euvolemic ok to use her home compression garments (16) DVT prophylaxis: heparin 7500 units TID given increased risk of DVT in face of COVID PT, OT evals appreciated -- patient wants to return to [facility] left message for daughter - 09/10/20 and 09/11/20 spoke with daughter, Radha, on phone (# [phone]) 09/12, 09/13, 09/14 and 09/16 daughter tested + for COVID extensive update given each time we are medically ready to move to rehab repeat COVID-19 test ordered - hopefully tests negative; will need 2 neg tests for rehab placement Admission and Anticipated Discharge Date Admission Date: September 07, 2020 Subjective patient sitting in chair comfortably. offers no complaints. back pain doing very nicely. can move and walk well without significant pain. minimal cough. no dyspnea. I removed O2 during the visit. 5 minutes later O2 sats about 88% in RA - 2 liters NC put back on. Denies any MEEHAN. no diarrhea. appetite slowly improving. Review of Systems Constitutional: no fever, no chills, no body aches and no fatigue Respiratory: + cough; no dyspnea, no hemoptysis and no wheezing Cardiovascular: no chest pain Gastrointestinal: no abdominal pain, no nausea, no vomiting and no diarrhea/loose stools Physical Exam Constitutional: + frail appearing; no acute distress and no altered mental status ENMT: external ear and nose normal, oropharynx normal Respiratory: no respiratory distress Auscultation: + diminished lung sounds (right base) and + rales (left base - scant); no wheezes Cardiovascular: Rate/Rhythm: regular rate and regular rhythm Heart Sounds: normal S1, normal S2 and + murmur (2/6 holosystolic RUSB ) Vessels: posterior tibial pulses present and dorsalis pedis pulses present; no JVD Extremities: + edema (1+ shins b/l; 2+ ankles b/l (a little worse on left)) Gastrointestinal (Abdomen): normal bowel sounds, soft, nontender, no hepatosplenomegaly Skin: no rashes, warm and dry Psychiatric: Orientation: alert and oriented x 3 Results & Data Results & Data ([facility]) Vital Signs (Past 12 Hours) Vital Signs Temp Pulse Pulse Resp BP Pulse Ox 09/16/20 22:00 36.9 C 95 H 19 113/73 93 09/16/20 15:00 92 H 18 98/62 L 93 Laboratory Results Laboratory Results - last 24 hr 09/16/20 07:20 Sodium 139 Potassium 3.8 Chloride 100 Carbon Dioxide 34 H Anion Gap 5.0 BUN 21 H Creatinine 0.79 Est Cr Clr Drug Dosing 67.6 Est GFR ( Amer) 85.5 Est GFR (Non-Af Amer) 73.7 BUN/Creatinine Ratio 26.7 H Glucose 89 Calcium 9.9 Magnesium 1.9 PG Care Time/CCT Total # of Minutes Spent Total Time Spent with Patient: Total time spent is greater than 50% in coordination of care (as documented) at patient's floor/unit and/or counseling patient: Coding Level of Care Code 83480 Subseq Hosp Care Lvl 3 Diagnoses Pneumonia due to COVID-19 virus U07.1; J12.89 Acute hypoxemic respiratory failure J96.01 (HFpEF) heart failure with preserved ejection fraction I50.31 Heart failure chronicity: acute UTI (urinary tract infection) N30.00 Urinary tract infection type: acute cystitis Hematuria presence: without hematuria VRE infection (vancomycin resistant Enterococcus) A49.1; Z16.21 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 Follicular lymphoma type: unspecified follicular type Lymphoma site: unspecified region Chronic pain syndrome G89.4 Moderate aortic stenosis I35.0 Anemia D64.9 Anemia type: unspecified type Gram-negative bacteremia R78.81 Hypertension I10 Hypertension type: essential hypertension Impaired fasting glucose R73.01 Presence of intrathecal pump Z96.89 Depression F32.9 Depression Type: unspecified Peripheral edema R60.9 DVT prophylaxis Z29.9 (1) (HFpEF) heart failure with preserved ejection fraction Heart failure chronicity: acute Qualified Code(s): I50.31 - Acute diastolic (congestive) heart failure (2) UTI (urinary tract infection) Urinary tract infection type: acute cystitis Hematuria presence: without hematuria Qualified Code(s): N30.00 - Acute cystitis without hematuria (3) Follicular lymphoma Follicular lymphoma type: unspecified follicular type Lymphoma site: unspecified region Qualified Code(s): C82.90 - Follicular lymphoma, unspecified, unspecified site (4) Anemia Anemia type: unspecified type Qualified Code(s): D64.9 - Anemia, unspecified (5) Hypertension Hypertension type: essential hypertension Qualified Code(s): I10 - Essential (primary) hypertension (6) Depression Depression Type: unspecified Qualified Code(s): F32.9 - Major depressive disorder, single episode, unspecified
[2020-09-16] MEDS: CYCLOBENZAPRINE HCL 5 MG TAB PO PRN (23:32)
[2020-09-17] MEDS: HEPARIN SOD 5,000 UNIT/0.5 ML VIAL SQ SCH ×3 (06:04→21:30)
[2020-09-17 06:45] LABS: BUN Creatinine Ratio 25.9 (10-20); Calcium 9.1 mg/dl (8.5-10.1); Creatinine Clr Calc Pharmacy 75.2 ml/min; Est GFR (African American) 97.3; Est GFR (Non-African American) 83.9; Potassium 3.8 mmol/L (3.5-5.1)
[2020-09-17] MEDS: DOCUSATE SODIUM 100 MG CAP PO SCH ×2 (08:58→21:30)
[2020-09-17] MEDS: DOCUSATE SODIUM/SENNA 50/8.6MG TAB PO SCH (08:58)
[2020-09-17] MEDS: POLYETHYLENE (MIRALAX) 17 GM PACK PO SCH (08:58)
[2020-09-17] MEDS: CHOLECALCIFEROL 1,000 UNITS 25 MCG TAB PO SCH (08:59)
[2020-09-17] MEDS: LORATADINE 10 MG TAB PO SCH (09:00)
[2020-09-17] MEDS: POTASSIUM CHLORIDE CRTAB 20 MEQ TABCR PO SCH ×2 (09:00→21:30)
[2020-09-17] MEDS: CALCIUM 600MG + VIT D 400 IU TAB PO SCH (09:00)
[2020-09-17] MEDS: GABAPENTIN 300 MG CAP PO SCH ×2 (09:00→21:30)
[2020-09-17] MEDS: FERROUS SULFATE 325 MG TAB PO SCH (09:00)
[2020-09-17] MEDS: DULoxetine HCL 60 MG CAP PO SCH (09:00)
[2020-09-17] MEDS: guaiFENesin 600 MG TABCR PO SCH ×2 (09:01→21:30)
[2020-09-17] MEDS: MULTIVITAMIN TAB PO SCH (09:01)
[2020-09-17] MEDS: ASPIRIN 81 MG ECTAB PO SCH (09:01)
[2020-09-17] MEDS: dexAMETHasone 6 MG in SYRINGE 0 ML IV SCH (09:05)
[2020-09-17 11:23] LABS: Hematocrit (blood only) 30.9 % (37-47); Hemoglobin 9.6 g/dL (12.0-16.0); Mean Corpuscular Hemoglobin 27.4 pg (25-34); Mean Corpuscular Hgb Conc 31.1 g/dL (32-36); Mean Corpuscular Volume 88.3 fL (80-100); Mean Platelet Volume 8.8 fL (7.4-10.4); Platelet Count 589 K/uL (130-400); RDW Coefficient of Variation 15.3 % (11.5-14.5); RDW Standard Deviation 48.5 fL (36.4-46.3); White Blood Count 11.69 K/uL (4.8-10.8)
--- NOTE | 2020-09-17 13:53 | Hospitalist Progress Note ---
Date of Service September 17, 2020 Assessment & Plan (1) Pneumonia due to COVID-19 virus: Improving Cont 10-day course of decadron 6mg daily, day #8 today. s/p remdesivir x 5 days. s/p convalescent plasma earlier this week. Cont flutter valve. Cont mucinex. Cont Bronchodilators prn. Wean fiO2 as tolerated. Fever recorded this morning of 39.1 but was 37.8 a few hours later without acetaminophen administration and patient feeling well, no new symptoms. Mild leukocytosis but patient has been on steroids. BC redrawn with morning labs. Continue to monitor. (2) Acute hypoxemic respiratory failure: 2nd to COVID-19 pneumonia and acute diastolic CHF/HFpEF. Improving/resolving. Other than peripheral edema - much of which is chronic - she appears euvolemic. SIGNIFICANT WEIGHT LOSS WITH DIURESIS while here. Continues to be net negative. IV lasix discontinued 09/16. Cont supportive care for COVID-19. (3) (HFpEF) heart failure with preserved ejection fraction: ACUTE. RESOLVED. Stopped IV lasix 09/16. BUN & Cr remain stable. Echo from 08/2020 noted (preserved EF, normal RV function, etc). Patient has chronic lower extremity edema Increased O2 needs today but lungs sound clear to auscultation, patient does not feel sob. Will continue to monitor. Net negative Is&Os so will hold off on further diuresis for now. (4) UTI (urinary tract infection): Had presumed e.coli UTI with resulting septicemia/septic shock during prior admission. Was to finish a course of oral omnicef for such, stop date 09/11/20, as outpatient at [facility]. Blood cultures this admission negative. Was placed on IV zosyn on 09/05 upon re-admission to [facility]. This would have covered prior UTI and prior positive blood cultures. Zosyn now stopped. 2 separate urine cultures this admission with VRE and alpha strep. Rather odd in light of clinical picture. Completed 7 days of daptomycin Amox for alpha strep - Completed 3 days of amox (5) VRE infection (vancomycin resistant Enterococcus): UTI. see above. (6) Follicular lymphoma: Recent diagnosis. Follows with Dr Verde. follow CBC every 2-3 days for stability. (7) Chronic pain syndrome: Follows with pain management. Has intrathecal pain pump. Meds in pump - dilaudid, bupivicaine, and baclofen. Decadron for COVID helping acute/chronic back pain. start oral dilaudid 2mg po q6h prn breakthrough pain. (8) Moderate aortic stenosis: Noted. (9) Anemia: Hbs have been stable. 2nd to blood draws, lymphoma, etc. (10) Gram-negative bacteremia: 2nd e.coli during prior admission in August. presumed source - urine/UTI. see above. resolved. (11) Hypertension: BPs wnl on no BP meds. (12) Impaired fasting glucose: Previous a1c 5.2%. Pre-DM resolved. (13) Presence of intrathecal pump: noted for chronic back pain when steroid course for COVID is complete she is asking for additional pain control so she can tolerate PT and rehab increased gabapentin to 300mg BID on 09/13/20 started dilaudid 2mg PO q6h prn - has not required any yet. stopped percocet - patient states it doesn't help. (14) Depression: cont cymbalta cont trazodone (15) Peripheral edema: severe but improved with IV lasix has varicose veins and venous insufficiency at baseline always has some element of edema per patient dopplers of legs from prior admission neg for DVT low albumin could also be contributing now that she is otherwise euvolemic ok to use her home compression garments (16) DVT prophylaxis: heparin 7500 units TID given increased risk of DVT in face of COVID PT, OT evals appreciated -- patient wants to return to [facility] left message for daughter - 09/10/20 and 09/11/20 spoke with daughter, Radha, on phone (# [phone]) 09/12, 09/13, 09/14 and 09/16 daughter tested + for COVID extensive update given each time we are medically ready to move to rehab Will need to have repeat Covid test on day 10 so on 09/19 Admission and Anticipated Discharge Date Admission Date: September 07, 2020 Subjective Ms. Henry has no complaints, feels she is improving. Not much cough and does not feel sob. Her oxygen saturations were 88% on 3L during my exam so she was increased to 4L. No aches or chills. Unclear if fever recorded this morning is accurate as she was 37.8 during my exam ROS Constitutional: no chills, aches, sweats or fever Respiratory: no sob,cough, sputum, or wheezing Cardiac: no chest pain, palpitations, edema, orthopnea or lightheadedness GI: no abdominal pain, nausea, vomiting, diarrhea or constipation : no dysuria or hesitancy Extremities: no joint pain or weakness Skin: no rash All other systems reviewed and negative Physical Exam Physical Exam: General: no distress Eyes: normal inspection, PERLL Respiratory: chest non tender, clear to auscultation, normal breath sounds, no respiratory distress, no accessory muscle use Cardiac: regular rate and rhythm, no rub or gallop, no murmur, +1 pitting edema bilateral lower extremities, no jvd GI/: active bowel sounds, no abd pain or tenderness, soft, non distended Extremities: normal range of motion, normal strength, non tender Neuro/Psych: alert and oriented x 3, normal mood and affect Skin: normal color, dry Results & Data Results & Data ([facility]) Vital Signs (Past 12 Hours) Vital Signs Temp Pulse Resp BP Pulse Ox 09/17/20 09:05 91 09/17/20 08:11 39.1 C H 106 H 16 127/75 90 PG Care Time/CCT Total # of Minutes Spent Total Time Spent with Patient: Total time spent is greater than 50% in coordination of care (as documented) at patient's floor/unit and/or counseling patient: Coding Level of Care Code 68490 Subseq Hosp Care Lvl 3 Diagnoses Pneumonia due to COVID-19 virus U07.1; J12.89 Acute hypoxemic respiratory failure J96.01 (HFpEF) heart failure with preserved ejection fraction I50.31 Heart failure chronicity: acute UTI (urinary tract infection) N30.00 Urinary tract infection type: acute cystitis Hematuria presence: without hematuria VRE infection (vancomycin resistant Enterococcus) A49.1; Z16.21 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 Follicular lymphoma type: unspecified follicular type Lymphoma site: unspecified region Chronic pain syndrome G89.4 Moderate aortic stenosis I35.0 Anemia D64.9 Anemia type: unspecified type Gram-negative bacteremia R78.81 Hypertension I10 Hypertension type: essential hypertension Impaired fasting glucose R73.01 Presence of intrathecal pump Z96.89 Depression F32.9 Depression Type: unspecified Peripheral edema R60.9 DVT prophylaxis Z29.9 (1) (HFpEF) heart failure with preserved ejection fraction Heart failure chronicity: acute Qualified Code(s): I50.31 - Acute diastolic (congestive) heart failure (2) UTI (urinary tract infection) Urinary tract infection type: acute cystitis Hematuria presence: without hematuria Qualified Code(s): N30.00 - Acute cystitis without hematuria (3) Follicular lymphoma Follicular lymphoma type: unspecified follicular type Lymphoma site: unspecified region Qualified Code(s): C82.90 - Follicular lymphoma, unspecified, unspecified site (4) Anemia Anemia type: unspecified type Qualified Code(s): D64.9 - Anemia, unspecified (5) Hypertension Hypertension type: essential hypertension Qualified Code(s): I10 - Essential (primary) hypertension (6) Depression Depression Type: unspecified Qualified Code(s): F32.9 - Major depressive disorder, single episode, unspecified
[2020-09-17] MEDS: CYCLOBENZAPRINE HCL 5 MG TAB PO PRN ×2 (14:02→22:20)
[2020-09-17] MEDS: ACETAMINOPHEN 500 MG TAB PO PRN (22:20)
[2020-09-18 05:51] LABS: Hematocrit (blood only) 30.6 % (37-47); Hemoglobin 9.2 g/dL (12.0-16.0); Mean Corpuscular Hemoglobin 26.7 pg (25-34); Mean Corpuscular Hgb Conc 30.1 g/dL (32-36); Mean Platelet Volume 8.5 fL (7.4-10.4); Platelet Count 544 K/uL (130-400); RDW Coefficient of Variation 15.3 % (11.5-14.5); RDW Standard Deviation 49.4 fL (36.4-46.3); Red Blood Count 3.44 M/uL (4.2-5.4); White Blood Count 5.36 K/uL (4.8-10.8)
[2020-09-18] MEDS: HEPARIN SOD 5,000 UNIT/0.5 ML VIAL SQ SCH ×3 (05:56→20:54)
[2020-09-18] MEDS: PANTOprazole 40 MG TAB PO SCH (05:57)
[2020-09-18 06:23] LABS: BUN Creatinine Ratio 19.4 (10-20); Calcium 9.3 mg/dl (8.5-10.1); Creatinine Clr Calc Pharmacy 70.1 ml/min; Est GFR (Non-African American) 78.5; Potassium 4.3 mmol/L (3.5-5.1)
[2020-09-18] MEDS: DOCUSATE SODIUM/SENNA 50/8.6MG TAB PO SCH (09:15)
[2020-09-18] MEDS: CHOLECALCIFEROL 1,000 UNITS 25 MCG TAB PO SCH (09:15)
[2020-09-18] MEDS: FERROUS SULFATE 325 MG TAB PO SCH (09:15)
[2020-09-18] MEDS: POLYETHYLENE (MIRALAX) 17 GM PACK PO SCH (09:15)
[2020-09-18] MEDS: DOCUSATE SODIUM 100 MG CAP PO SCH ×2 (09:15→20:52)
[2020-09-18] MEDS: ASPIRIN 81 MG ECTAB PO SCH (09:16)
[2020-09-18] MEDS: DULoxetine HCL 60 MG CAP PO SCH (09:16)
[2020-09-18] MEDS: LORATADINE 10 MG TAB PO SCH (09:16)
[2020-09-18] MEDS: guaiFENesin 600 MG TABCR PO SCH ×2 (09:16→20:53)
[2020-09-18] MEDS: CALCIUM 600MG + VIT D 400 IU TAB PO SCH (09:16)
[2020-09-18] MEDS: GABAPENTIN 300 MG CAP PO SCH ×2 (09:16→20:56)
[2020-09-18] MEDS: POTASSIUM CHLORIDE CRTAB 20 MEQ TABCR PO SCH ×2 (09:16→20:56)
[2020-09-18] MEDS: MULTIVITAMIN TAB PO SCH (09:16)
[2020-09-18] MEDS: cefTRIAXone SODIUM 2,000 MG in DEXTROSE 5% 50 ML IV SCH (09:18)
[2020-09-18] MEDS: dexAMETHasone 6 MG in SYRINGE 0 ML IV SCH (09:23)
[2020-09-18] MEDS: CYCLOBENZAPRINE HCL 5 MG TAB PO PRN (09:23)
--- NOTE | 2020-09-18 14:37 | Hospitalist Progress Note ---
Date of Service September 18, 2020 Assessment & Plan (1) Pneumonia due to COVID-19 virus: improved, stable on 3.5L, no distress, minimal cough Cont 10-day course of decadron 6mg daily, day #9 today. s/p remdesivir x 5 days. s/p convalescent plasma earlier this week. Cont flutter valve. Cont mucinex. Cont Bronchodilators prn. Wean fiO2 as tolerated. will repeat COVID test tomorrow can go to [facility] even if test is positive (2) Acute hypoxemic respiratory failure: 2nd to COVID-19 pneumonia and acute diastolic CHF/HFpEF. Improving/resolving, stable on 3.5 L today Other than peripheral edema - much of which is chronic - she appears euvolemic. SIGNIFICANT WEIGHT LOSS WITH DIURESIS while here. Continues to be net negative. IV lasix discontinued 09/16. Cont supportive care for COVID-19. (3) (HFpEF) heart failure with preserved ejection fraction: ACUTE. RESOLVED. Stopped IV lasix 09/16. BUN & Cr remain stable. Echo from 08/2020 noted (preserved EF, normal RV function, etc). Patient has chronic lower extremity edema (4) UTI (urinary tract infection): Had presumed e.coli UTI with resulting septicemia/septic shock during prior admission. Was to finish a course of oral omnicef for such, stop date 09/11/20, as outpatient at [facility]. Blood cultures this admission negative. Was placed on IV zosyn on 09/05 upon re-admission to [facility]. This would have covered prior UTI and prior positive blood cultures. Zosyn now stopped. 2 separate urine cultures this admission with VRE and alpha strep. Rather odd in light of clinical picture. Completed 7 days of daptomycin Amox for alpha strep - Completed 3 days of amox no fever, no dysuria WBC normal (5) VRE infection (vancomycin resistant Enterococcus): UTI. see above. (6) Follicular lymphoma: Recent diagnosis. Follows with Dr Verde. follow CBC every 2-3 days WBC is 5k today (7) Chronic pain syndrome: Follows with pain management. Has intrathecal pain pump. Meds in pump - dilaudid, bupivicaine, and baclofen. Decadron for COVID helping acute/chronic back pain. start oral dilaudid 2mg po q6h prn breakthrough pain, working well will continue on discharge (8) Moderate aortic stenosis: Noted. (9) Anemia: Hbs have been stable. 2nd to blood draws, lymphoma (10) Gram-negative bacteremia: 2nd e.coli during prior admission in August. presumed source - urine/UTI. see above. resolved. (11) Hypertension: BPs wnl on no BP meds. (12) Impaired fasting glucose: Previous a1c 5.2%. Pre-DM resolved. (13) Presence of intrathecal pump: noted for chronic back pain when steroid course for COVID is complete she is asking for additional pain control so she can tolerate PT and rehab increased gabapentin to 300mg BID on 09/13/20 started dilaudid 2mg PO q6h prn - has not required any yet. stopped percocet - patient states it doesn't help. (14) Depression: cont cymbalta cont trazodone (15) Peripheral edema: severe but improved with IV lasix has varicose veins and venous insufficiency at baseline always has some element of edema per patient dopplers of legs from prior admission neg for DVT low albumin could also be contributing now that she is otherwise euvolemic ok to use her home compression garments (16) DVT prophylaxis: heparin 7500 units TID given increased risk of DVT in face of COVID PT, OT evals appreciated -- patient wants to return to [facility] updated daughter today over the phone Will need to have repeat Covid test on day 10 so on 09/19 Admission and Anticipated Discharge Date Admission Date: September 07, 2020 Subjective patient doing well today, sitting up in her chair, no dyspnea, minimal cough but does have some sputum production less back pain the past few days no fever today, suspect the elevated temp yesterday was false reading labs reviewed, stable updated her daughter over the phone plan for rehab, possibly tomorrow Review of Systems Review of Systems: All systems reviewed & are unremarkable except as noted in Subjective Constitutional: + weakness; no fever and no fatigue Respiratory: + cough, + dyspnea on exertion and + sputum production; no dyspnea Cardiovascular: no chest pain and no edema Gastrointestinal: no abdominal pain, no nausea, no vomiting, no constipation and no diarrhea/loose stools Musculoskeletal: + back pain Physical Exam Constitutional: WD/WN, vitals as above no acute distress Neck: trachea midline, no thyromegaly Respiratory: normal respiratory effort, lungs clear to auscultation Cardiovascular: RRR, no murmur, no edema Gastrointestinal (Abdomen): normal bowel sounds, soft, nontender, no hepatosplenomegaly Musculoskeletal: Head/Neck/Chest: normocephalic, head atraumatic and neck supple Spine: + limited thoraco-lumbar ROM and + scoliosis Extremities: extremities normal to inspection and strength 5/5 throughout; no cyanosis and no clubbing Skin: no rashes, warm and dry Neurologic: patellar DTR's 2+ bilat, sensation intact and PERRL, EOMI, accommodation nl, no face palsy, no dysarthria Psychiatric: A+Ox3, euthymic affect Lymphatic: no cervical or axillary lymphadenopathy Results & Data Results & Data ([facility]) Vital Signs (Past 12 Hours) Vital Signs Temp Pulse Resp BP Pulse Ox 09/18/20 09:13 37.4 C 99 H 18 110/67 95 Laboratory Results Laboratory Results - last 24 hr 09/18/20 09/18/20 05:27 05:27 WBC 5.36 RBC 3.44 L Hgb 9.2 L Hct 30.6 L MCV 89.0 MCH 26.7 MCHC 30.1 L RDW Std Deviation 49.4 H RDW Coeff of Inge 15.3 H Plt Count 544 H MPV 8.5 Sodium 138 Potassium 4.3 Chloride 102 Carbon Dioxide 33 H Anion Gap 2.0 L BUN 15 Creatinine 0.75 Est Cr Clr Drug Dosing 70.1 Est GFR ( Amer) 91.0 Est GFR (Non-Af Amer) 78.5 BUN/Creatinine Ratio 19.4 Glucose 83 Calcium 9.3 Medications Administered Current Inpatient Medications Acetaminophen (Acetaminophen 500 Mg Tab) 1,000 mg PO Q8 PRN PRN Reason: Pain Stop: 10/05/20 19:25 Last Admin: 09/17/20 22:20 Dose: 1,000 mg Documented by: Albuterol (Albuterol Hfa 8 Gm Inhaler (Combivent Respimat P&T Subs)) 1 puffs INH QIDR PRN PRN Reason: SHORTNESS OF BREATH Stop: 10/05/20 20:08 Aspirin (Aspirin 81 Mg Ectab) 81 mg PO DAILY BABITA Stop: 10/06/20 08:59 Last Admin: 09/18/20 09:16 Dose: 81 mg Documented by: Cyclobenzaprine HCl (Cyclobenzaprine Hcl 5 Mg Tab) 5 mg PO TID PRN PRN Reason: back pain/spasm Stop: 10/10/20 20:59 Last Admin: 09/18/20 09:23 Dose: 5 mg Documented by: Docusate Sodium (Docusate Sodium 100 Mg Cap) 100 mg PO BID [facility] Stop: 10/05/20 20:59 Last Admin: 09/18/20 20:52 Dose: 100 mg Documented by: Duloxetine HCl (Duloxetine Hcl 60 Mg Cap) 120 mg PO QAM [facility] Stop: 10/06/20 08:59 Last Admin: 09/18/20 09:16 Dose: 120 mg Documented by: Ferrous Sulfate (Ferrous Sulfate 325 Mg Tab) 325 mg PO QAM [facility] Stop: 10/06/20 08:59 Last Admin: 09/18/20 09:15 Dose: 325 mg Documented by: Fluticasone Propionate (Fluticasone Propionate Na Spr 16 Gm Btl) 2 sprays GUY DAILY PRN PRN Reason: allergy symptoms Stop: 10/05/20 19:25 Gabapentin (Gabapentin 300 Mg Cap) 300 mg PO BID [facility] Stop: 10/13/20 20:59 Last Admin: 09/18/20 20:56 Dose: 300 mg Documented by: Guaifenesin (Guaifenesin 600 Mg Tabcr) 1,200 mg PO Q12 [facility] Stop: 10/10/20 20:59 Last Admin: 09/18/20 20:53 Dose: 1,200 mg Documented by: Heparin Sodium (Porcine) (Heparin Sod 5,000 Unit/0.5 Ml Vial) 7,500 units SQ Q8 BABITA Stop: 10/10/20 19:59 Last Admin: 09/18/20 20:54 Dose: 7,500 units Documented by: Hydromorphone HCl (Hydromorphone Hcl 2 Mg Tab) 2 mg PO Q6H PRN PRN Reason: Pain Stop: 09/30/20 10:41 Dexamethasone 6 mg/ Syringe 1.5 mls @ 1 mls/min IV QAM [facility] Stop: 10/10/20 10:44 Last Admin: 09/18/20 09:23 Dose: 1 mls/min Documented by: Ceftriaxone Sodium 2,000 mg/ (Dextrose) 70 mls @ 100 mls/hr IV DAILY [facility]; Protocol Stop: 10/02/20 08:59 Last Infusion: 09/18/20 10:21 Dose: Infused Documented by: Ipratropium [place]mar (Ipratropium Hfa Inhaler (Combivent Respimat P&T Subs)) 1 puffs INH QIDR PRN PRN Reason: SHORTNESS OF BREATH Stop: 10/05/20 20:08 Loratadine (Loratadine 10 Mg Tab) 10 mg PO DAILY BABITA Stop: 10/06/20 08:59 Last Admin: 09/18/20 09:16 Dose: 10 mg Documented by: Multivitamins (Multivitamin Tab) 2 tab PO QAM [facility]AB[facility] Stop: 10/06/20 08:59 Last Admin: 09/18/20 09:16 Dose: 2 tab Documented by: Multivitamins/Minerals (Calcium 600mg + Vit D 400 Iu Tab) 1 tab PO QAM [facility] Stop: 10/06/20 08:59 Last Admin: 09/18/20 09:16 Dose: 1 tab Documented by: Pantoprazole Sodium (Pantoprazole 40 Mg Tab) 40 mg PO DAILYBB [facility] Stop: 10/06/20 06:29 Last Admin: 09/18/20 05:57 Dose: 40 mg Documented by: Polyethylene Glycol (Polyethylene (Miralax) 17 Gm Pack) 17 gm PO DAILY BABITA Stop: 10/06/20 08:59 Last Admin: 09/18/20 09:15 Dose: Not Given Documented by: Potassium Chloride (Potassium Chloride 20 Meq Tabcr) 20 meq PO BID [facility] Stop: 10/14/20 20:59 Last Admin: 09/18/20 20:56 Dose: 20 meq Documented by: Senna/Docusate Sodium (Docusate Sodium/Senna 50/8.6mg Tab) 1 tab PO QAM [facility] Stop: 10/06/20 08:59 Last Admin: 09/18/20 09:15 Dose: Not Given Documented by: Trazodone HCl (Trazodone Hcl 50 Mg Tab) 50 mg PO HS PRN PRN Reason: sleep Stop: 10/05/20 19:25 Last Admin: 09/16/20 21:55 Dose: 50 mg Documented by: Vitamin D (Cholecalciferol 1,000 Units 25 Mcg Tab) 2,000 units PO QAM [facility] Stop: 10/06/20 08:59 Last Admin: 09/18/20 09:15 Dose: 2,000 units Documented by: PG Care Time/CCT Total # of Minutes Spent Total Time Spent with Patient: Total time spent is greater than 50% in coordination of care (as documented) at patient's floor/unit and/or counseling patient: Coding Level of Care Code 86485 Subseq Hosp Care Lvl 3 Diagnoses Pneumonia due to COVID-19 virus U07.1; J12.89 Acute hypoxemic respiratory failure J96.01 (HFpEF) heart failure with preserved ejection fraction I50.31 Heart failure chronicity: acute UTI (urinary tract infection) N30.00 Hematuria presence: without hematuria Urinary tract infection type: acute cystitis VRE infection (vancomycin resistant Enterococcus) A49.1; Z16.21 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 Follicular lymphoma type: unspecified follicular type Lymphoma site: unspecified region Chronic pain syndrome G89.4 Moderate aortic stenosis I35.0 Anemia D64.9 Anemia type: unspecified type Gram-negative bacteremia R78.81 Hypertension I10 Hypertension type: essential hypertension Impaired fasting glucose R73.01 Presence of intrathecal pump Z96.89 Depression F32.9 Depression Type: unspecified Peripheral edema R60.9 DVT prophylaxis Z29.9 (1) UTI (urinary tract infection) Hematuria presence: without hematuria Urinary tract infection type: acute cystitis Qualified Code(s): N30.00 - Acute cystitis without hematuria (2) (HFpEF) heart failure with preserved ejection fraction Heart failure chronicity: acute Qualified Code(s): I50.31 - Acute diastolic (congestive) heart failure (3) Anemia Anemia type: unspecified type Qualified Code(s): D64.9 - Anemia, unspecified (4) Depression Depression Type: unspecified Qualified Code(s): F32.9 - Major depressive disorder, single episode, unspecified (5) Follicular lymphoma Follicular lymphoma type: unspecified follicular type Lymphoma site: unspecified region Qualified Code(s): C82.90 - Follicular lymphoma, unspecified, unspecified site (6) Hypertension Hypertension type: essential hypertension Qualified Code(s): I10 - Essential (primary) hypertension
[2020-09-19 00:18] VITALS: TEMP 99.3
[2020-09-19] MEDS: CYCLOBENZAPRINE HCL 5 MG TAB PO PRN ×2 (00:34→13:26)
[2020-09-19] MEDS: HEPARIN SOD 5,000 UNIT/0.5 ML VIAL SQ SCH ×2 (06:09→13:24)
[2020-09-19] MEDS: PANTOprazole 40 MG TAB PO SCH (06:09)
[2020-09-19] MEDS: ACETAMINOPHEN 500 MG TAB PO PRN (06:30)
[2020-09-19] MEDS: POTASSIUM CHLORIDE CRTAB 20 MEQ TABCR PO SCH (09:23)
[2020-09-19] MEDS: FERROUS SULFATE 325 MG TAB PO SCH (09:23)
[2020-09-19] MEDS: MULTIVITAMIN TAB PO SCH (09:23)
[2020-09-19] MEDS: DOCUSATE SODIUM 100 MG CAP PO SCH (09:23)
[2020-09-19] MEDS: LORATADINE 10 MG TAB PO SCH (09:23)
[2020-09-19] MEDS: DULoxetine HCL 60 MG CAP PO SCH (09:23)
[2020-09-19] MEDS: CHOLECALCIFEROL 1,000 UNITS 25 MCG TAB PO SCH (09:23)
[2020-09-19] MEDS: POLYETHYLENE (MIRALAX) 17 GM PACK PO SCH (09:24)
[2020-09-19] MEDS: CALCIUM 600MG + VIT D 400 IU TAB PO SCH (09:24)
[2020-09-19] MEDS: GABAPENTIN 300 MG CAP PO SCH (09:24)
[2020-09-19] MEDS: guaiFENesin 600 MG TABCR PO SCH (09:24)
[2020-09-19] MEDS: ASPIRIN 81 MG ECTAB PO SCH (09:24)
[2020-09-19] MEDS: DOCUSATE SODIUM/SENNA 50/8.6MG TAB PO SCH (09:25)
[2020-09-19] MEDS: dexAMETHasone 6 MG in SYRINGE 0 ML IV SCH (09:27)
[2020-09-19] MEDS: cefTRIAXone SODIUM 2,000 MG in DEXTROSE 5% 50 ML IV SCH (09:27)
[2020-09-19 10:25] VITALS: O2SAT 92
[2020-09-19 14:21] VITALS: BP 107/68; PULSE 90
--- NOTE | 2020-09-22 14:48 | Communication Note ---
Date of Service: September 22, 2020 Growing E.Coli in 1/4 blood culture bottles,beyer sensitive. Result called to SAGAR Rain at [facility].
--- NOTE | 2020-09-22 14:54 | Discharge Summary ---
Date of Service September 19, 2020 Admission HPI Per Admitting Provider Attending: Dr. Clement Lopez This is a 75-year-old female that was sent to the emergency department from [facility] for fever and intractable pain. She has a past medical history including chronic pain secondary to lumbar postlaminectomy syndrome, follicular lymphoma, aortic stenosis, moderate mitral valve regurgitation, placement of intrathecal pump, anxiety, GERD, hyperlipidemia, hypertension and insomnia. She was recently admitted to [facility] from August 26, 2020 until August 31, 2020 with urosepsis. She was discharged on cefdinir to [facility] for rehab for her chronic pain. During that hospital stay she was seen by pain management. There was no adjustment to the intrathecal pump at that time secondary to use of IV and oral opiates. She was scheduled to have a intrathecal pump revision replacement for 09/03/2020. This was canceled at that time secondary to her urosepsis. The patient states that she has been undergoing therapy at [facility] and this is aggravated her pain she thinks. She was told that she had a fever but denies any awareness of fever, sweats, chills, rigors. She is more comfortable in a wheelchair and has difficulty in a bed due to discomfort. She has no cough, loss of taste or smell, or diarrhea. Appetite is decreased. She has no nausea or vomiting. She reports daily movements of her bowel which are soft but formed with no reports of watery diarrhea. She denies any blood in her stool but states that she has chronic gross hematuria. She has no other acute complaints at this time. The patient was seen with her daughter Carmita at bedside. 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 Principal Diagnosis COVID 19 pneumonia Discharge Exam Constitutional WD/WN, vitals as above no acute distress Neck trachea midline, no thyromegaly Respiratory normal respiratory effort, lungs clear to auscultation Cardiovascular RRR, no murmur, no edema Gastrointestinal (Abdomen) normal bowel sounds, soft, nontender, no hepatosplenomegaly Musculoskeletal Head/Neck/Chest: normocephalic, head atraumatic and neck supple Spine: + limited thoraco-lumbar ROM and + scoliosis Extremities: extremities normal to inspection and strength 5/5 throughout; no cyanosis and no clubbing Skin no rashes, warm and dry Neurologic patellar DTR's 2+ bilat, sensation intact and PERRL, EOMI, accommodation nl, no face palsy, no dysarthria Psychiatric A+Ox3, euthymic affect Lymphatic no cervical or axillary lymphadenopathy Discharge Data Allergies Allergy/AdvReac Type Severity Reaction Status Date / Time latex Allergy Mild contact Verified 09/05/20 12:45 dermatitis Sulfa (Sulfonamide Allergy Mild RASH Verified 09/05/20 12:45 Antibiotics) nickel Allergy Unknown contact Verified 09/05/20 12:45 dermatitis Consultations 09/05/20 19:26 Consult Case Management - Discharge Planning Routine Consult Pain Management Stat 09/06/20 16:07 Consult Infectious Diseases Routine 09/09/20 10:18 Consult Gastroenterology Routine Ordered Studies 09/05/20 13:12 CT abd pelvis IV con only Stat Hospital Course (1) Pneumonia due to COVID-19 virus: improved, stable on 3L, no distress, minimal cough Cont 10-day course of decadron 6mg daily, day #10 today. s/p remdesivir x 5 days. s/p convalescent plasma earlier this week. Cont flutter valve. Cont mucinex. Cont Bronchodilators prn. Wean fiO2 as tolerated. repeat COVID test on discharge, still positive [facility] will still accept transfer to rehab (2) Acute hypoxemic respiratory failure: 2nd to COVID-19 pneumonia and acute diastolic CHF/HFpEF. Improving/resolving, stable on 3L today Other than peripheral edema - much of which is chronic - she appears euvolemic. SIGNIFICANT WEIGHT LOSS WITH DIURESIS while here. Continues to be net negative. IV lasix discontinued 09/16. Cont supportive care for COVID-19. (3) (HFpEF) heart failure with preserved ejection fraction: ACUTE. RESOLVED. Stopped IV lasix 09/16. BUN & Cr remain stable. Echo from 08/2020 noted (preserved EF, normal RV function, etc). Patient has chronic lower extremity edema (4) UTI (urinary tract infection): Had presumed e.coli UTI with resulting septicemia/septic shock during prior admission. Was to finish a course of oral omnicef for such, stop date 09/11/20, as outpatient at [facility]. Blood cultures this admission negative. Was placed on IV zosyn on 09/05 upon re-admission to [facility]. This would have covered prior UTI and prior positive blood cultures. Zosyn now stopped. 2 separate urine cultures this admission with VRE and alpha strep. Rather odd in light of clinical picture. Completed 7 days of daptomycin Amox for alpha strep - Completed 3 days of amox no fever, no dysuria WBC normal (5) VRE infection (vancomycin resistant Enterococcus): UTI. see above. (6) Follicular lymphoma: Recent diagnosis. Follows with Dr Verde. follow CBC every 2-3 days WBC has been stable (7) Chronic pain syndrome: Follows with pain management. Has intrathecal pain pump. Meds in pump - dilaudid, bupivicaine, and baclofen. Decadron for COVID helping acute/chronic back pain. start oral dilaudid 2mg po q6h prn breakthrough pain, working well when she goes to rehab, will use Hardy PRN but if it is not sufficient, recomm end using Dilaudid 2mg q6 PRN Gabapentin is up to 300mg BID (8) Moderate aortic stenosis: Noted. (9) Anemia: Hbs have been stable. 2nd to blood draws, lymphoma (10) Gram-negative bacteremia: 2nd e.coli during prior admission in August. presumed source - urine/UTI. was suspected to be resolved as repeat cultures were negative at time of discharge after discharge one out of four cultures grew out E coli, was not resistant Jessica LEWIS called [facility] to inform them of results, request they give her antibiotics (11) Hypertension: BPs wnl on no BP meds. (12) Impaired fasting glucose: Previous a1c 5.2%. Pre-DM resolved. (13) Presence of intrathecal pump: noted for chronic back pain when steroid course for COVID is complete she is asking for additional pain control so she can tolerate PT and rehab increased gabapentin to 300mg BID on 09/13/20 started dilaudid 2mg PO q6h prn - has not required any yet. stopped percocet - patient states it doesn't help. (14) Depression: cont cymbalta cont trazodone (15) Peripheral edema: severe but improved with IV lasix has varicose veins and venous insufficiency at baseline always has some element of edema per patient dopplers of legs from prior admission neg for DVT low albumin could also be contributing now that she is otherwise euvolemic ok to use her home compression garments Total Time Total Time Spent Total Time Spent (In Minutes): 33 minutes Total Time Includes: Examination of the Patient, Discharge Planning and Medication Reconciliation Discharge Plan Discharge Items Patient Disposition: Transfer Inpatient Rehab Fac Reason For Visit: INTRACTABLE PAIN, LEUCOCYTOSIS Discharge Diagnosis: COVID 19 pneumonia Acute on chronic low back pain Condition on Discharge: Good Goals: pain control improve mobility and strength Activity: Resume your previous activity Non-emergency contact: Primary Care Provider Call non-emergency contact if: you have any medication questions and your pain is not controlled Follow-up/Referrals: Gunner Garcia MD [Primary Care Provider] - (two weeks) Diet: Heart Healthy Addtl Attending Provider Instructions: Medications: - DILAUDID: 2MG by mouth every 6 hours as needed for pain if the Hardy does not provide control - GABAPENTIN: 300mg twice a day for neuropathic pain control COVID 19: patient completed Dexamethasone 10 day, Remdesivir 5 days and received convalescent plasma she is on 1L NC, no respiratory distress at all, no fever, eating and drinking well she is well recovered from COVID, still testing positive Low back pain: has pump, continue to use Gabapentin 300mg BID use Hardy PRN for pain and if that does not work then please use Dilaudid 2mg q6 PRN as it worked well in the hospital patient's goal is to get strong enough to return home Pending Studies at Discharge: No Stand-Alone Forms: [employer], Opioid Pain Management Skilled Items Patient informed of condition?: Yes DNR: No Discharge Level of Care: Acute rehab Communicable Disease: Yes Discharge Prognosis: Stable Lines: None Urinary Catheter: No Medications and DC Order Prescriptions: New hydromorphone [Dilaudid] 2 mg Tablet 2 mg PO Q6H PRN (Reason: pain) 14 Days Qty: 60 RF: 0 gabapentin 300 mg Capsule 300 mg PO BID 30 Days Qty: 60 RF: 2 Continued aspirin [Adult Low Dose Aspirin] 81 mg tablet,delayed release (DR/EC) 81 mg PO DAILY RF: 0 acetaminophen [Tylenol Extra Strength] 500 mg tablet 1,000 mg PO Q6H PRN (Reason: Pain) RF: 0 cholecalciferol (vitamin D3) 2,000 unit capsule 2,000 units PO QAM RF: 0 krill oil 500 mg capsule 500 mg PO QAM RF: 0 fluticasone propionate [Flonase Allergy Relief] 50 mcg/actuation spray,suspension 2 sprays INTNAS DAILY PRN (Reason: allergy symptoms) Qty: 47.4 RF: 5 ferrous sulfate [iron] 325 mg (65 mg iron) tablet 325 mg PO QAM RF: 0 multivitamin Tablet 2 tab PO QAM RF: 0 calcium carbonate-vitamin D3 600 mg(1,500mg) -200 unit Tablet 1 tab PO QAM RF: 0 trazodone 50 mg tablet 50 mg PO HS PRN (Reason: sleep) RF: 0 duloxetine [Cymbalta] 60 mg capsule,delayed release(DR/EC) 120 mg PO QAM RF: 0 hydrocodone-acetaminophen [Hardy] 5-325 mg Tablet 1 tab PO Q6 PRN (Reason: pain) Qty: 10 RF: 0 furosemide 20 mg tablet 20 mg PO DAILY PRN (Reason: edema) Qty: 10 RF: 0 polyethylene glycol 3350 [Miralax] 17 gram Powder In Packet 17 g PO DAILY Qty: 30 RF: 0 sennosides-docusate sodium [Senokot-S] 8.6-50 mg Tablet 1 tab PO QAM Qty: 30 RF: 0 lidocaine 5 % Adhesive Patch,Medicated 1 patch transdermal QAM Qty: 1 RF: 0 lidocaine 5 % Adhesive Patch,Medicated 2 patch transdermal QAM Qty: 1 RF: 0 potassium chloride 10 mEq Tablet Extended Release 10 meq PO BID RF: 0 melatonin 3 mg Tablet 6 mg PO HS PRN (Reason: Sleep) RF: 0 pantoprazole 40 mg Tablet,Delayed Release (Dr/Ec) 40 mg PO DAILYBB RF: 0 docusate sodium 100 mg Capsule 100 mg PO BID RF: 0 heparin (porcine) 5,000 unit/mL Solution 5,000 unit SUBCUT Q12H RF: 0 loratadine [Claritin] 10 mg Tablet 10 mg PO DAILY RF: 0 cyclobenzaprine 5 mg Tablet 5 mg PO TID PRN (Reason: Muscle Spasm) RF: 0 Foltanx 3-35-2 mg Tablet 1 tab PO DAILY RF: 0 Combivent Respimat 20-100 mcg/actuation Mist 1 puff INHALATION QID PRN (Reason: Shortness Of Breath) RF: 0 Discontinued gabapentin [Neurontin] 100 mg capsule 200 mg PO HS RF: 0 cefdinir 300 mg capsule 300 mg PO BID 11 Days Qty: 22 RF: 0 Discharge Orders: Discharge Order (Routine); Ordered 11/11/20 Ordered By: Beck Longoria/Other Patient Handouts: What Is Pneumonia? Admission Data Admit Date/Time: 09/07/20 08:24 Attending Provider: Beck David Admit Provider: Gary Richardson Primary Care Provider: Gunner Garcia Other Providers: Oniel Layne ; [facility] ; Saravanan Szymanski ; Susana Bueno ; Gio Schmidt I. ; Amandeep Almonte II ; Lashae Callaway ; Forest Loera ; Mike Brewster Other Interventions: Discharge Summary Assessment (RN) Last Done: 09/19/20 14:16 Coding Level of Care Code D/C Day Management >30 mins Diagnoses Pneumonia due to COVID-19 virus U07.1; J12.89 Acute hypoxemic respiratory failure J96.01 (HFpEF) heart failure with preserved ejection fraction I50.31 Heart failure chronicity: acute UTI (urinary tract infection) N30.00 Hematuria presence: without hematuria Urinary tract infection type: acute cystitis VRE infection (vancomycin resistant Enterococcus) A49.1; Z16.21 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 Follicular lymphoma type: unspecified follicular type Lymphoma site: unspecified region Chronic pain syndrome G89.4 Moderate aortic stenosis I35.0 Anemia D64.9 Anemia type: unspecified type Gram-negative bacteremia R78.81 Hypertension I10 Hypertension type: essential hypertension Impaired fasting glucose R73.01 Presence of intrathecal pump Z96.89 Depression F32.9 Depression Type: unspecified Peripheral edema R60.9
== END 2020-09-19 17:02 | DRG 177 ==
LOC: ED 11:30 → 2N 11:30 → SUATTDRO 17:43 → 2N 19:00 → SUATTDRO 09-07 08:24 → 3N 09-08 14:31 → 2E 09-09 21:15 → 3W 09-14 21:32
DX: F32.9 Major depressive disorder, single episode, unspecified; J12.89 Other viral pneumonia; J96.01 Acute respiratory failure with hypoxia; G89.4 Chronic pain syndrome; N30.00 Acute cystitis without hematuria; E78.5 Hyperlipidemia, unspecified; R73.01 Impaired fasting glucose; I35.0 Nonrheumatic aortic (valve) stenosis; I11.0 Hypertensive heart disease with heart failure; Z96.651 Presence of right artificial knee joint; Z88.2 Allergy status to sulfonamides; M19.90 Unspecified osteoarthritis, unspecified site; B95.2 Enterococcus as the cause of diseases classified elsewhere; C82.90 Follicular lymphoma, unspecified, unspecified site; I50.31 Acute diastolic (congestive) heart failure; M96.1 Postlaminectomy syndrome, not elsewhere classified; Z16.29 Resistance to other single specified antibiotic; Z86.718 Personal history of other venous thrombosis and embolism; Z96.643 Presence of artificial hip joint, bilateral; U07.1 COVID-19; R79.89 Other specified abnormal findings of blood chemistry; Z96.89 Presence of other specified functional implants; K21.9 Gastro-esophageal reflux disease without esophagitis; Z91.040 Latex allergy status

== ENCOUNTER 2020-09-27 12:40 | Inpatient (IN) ==
[2020-09-27 13:51] LABS: Basophils # (auto) 0.01 K/uL (0-0.2); Basophils % (auto) 0.1 %; Eosinophils # (auto) 0.01 K/uL (0-0.5); Eosinophils % (auto) 0.1 %; Hematocrit (blood only) 24.5 % (37-47); Hemoglobin 7.7 g/dL (12.0-16.0); Immature Granulocytes # (auto) 0.02 K/uL (0.00-0.02); Immature Granulocytes % (auto) 0.2 %; Lymphocytes # (auto) 0.33 K/uL (1.2-3.4); Mean Corpuscular Hemoglobin 26.4 pg (25-34); Mean Corpuscular Hgb Conc 31.4 g/dL (32-36); Mean Corpuscular Volume 83.9 fL (80-100); Mean Platelet Volume 8.7 fL (7.4-10.4); Monocytes % (auto) 3.6 %; Neutrophils # (auto) 7.61 K/uL (1.4-6.5); Platelet Count 381 K/uL (130-400); RDW Standard Deviation 46.4 fL (36.4-46.3); Red Blood Count 2.92 M/uL (4.2-5.4); White Blood Count 8.28 K/uL (4.8-10.8)
--- NOTE | 2020-09-27 13:54 | XRay Report ---
SINGLE VIEW CHEST CLINICAL HISTORY: Sepsis. FINDINGS: An AP, portable, upright chest radiograph is compared to chest x-ray and chest CT dated . The cardiomediastinal silhouette is unremarkable noting atherosclerotic calcification of the thoracic aorta. Emphysema and chronic interstitial thickening is similar to previous. There is chron ic elevation of right hemidiaphragm. There are bilateral airspace opacities, increasing in the right midlung and at the left lung base as compared to previous. No large pleural effusion or pneumothorax is seen. The skeletal structures are osteopenic. The bony thorax is grossly intact. Degenerative mcdermott ge is noted in the shoulders and thoracic spine. IMPRESSION: 1. Emphysema. 2. Bilateral airspace opacities have modestly increased as compared to 09/25/2020. ACT 112: Negative or not required by law. Electronically signed by: Danyel Means M.D. 09/27/2020 1:52 PM
[2020-09-27 14:08] LABS: INR 1.1 (0.9-1.1); Partial Thromboplastin Ratio 1.4; Partial Thromboplastin Time 40.2 Seconds (21.0-31.0); Prothrombin Time 11.6 Seconds (9.0-12.0)
[2020-09-27 14:12] LABS: D Dimer 2010 ug/L FEU (0-500)
[2020-09-27 14:18] LABS: Alanine Aminotransferase 18 U/L (12-78); Albumin Level 2.1 gm/dl (3.4-5.0); Aspartate Aminotransferase 24 U/L (15-37); BUN Creatinine Ratio 13.3 (10-20); Blood Urea Nitrogen 9 mg/dl (7-18); Calcium 8.5 mg/dl (8.5-10.1); Carbon Dioxide 25 mmol/L (21-32); Chloride 104 mmol/L (98-107); Creatinine Clr Calc Pharmacy 76.6 ml/min; Est GFR (African American) 99.4; Est GFR (Non-African American) 85.8; Glucose 88 mg/dl (70-99); Magnesium 1.9 mg/dl (1.8-2.4); Potassium 4.5 mmol/L (3.5-5.1); Sodium 134 mmol/L (136-145)
[2020-09-27] MEDS ORDERED: ACETAMINOPHEN 1,000 MG/100 ML VIAL IV STA (14:18)
[2020-09-27] MEDS ORDERED: SODIUM CHLORIDE 0.9% 250 ML IV PRN ×2 (14:18→19:23)
[2020-09-27 14:23] LABS: Albumin Globulin Ratio 0.5 (0.9-2); Alkaline Phosphatase 143 U/L (45-117); Bilirubin,Total 0.4 mg/dl (0.2-1); Total Protein 6.1 gm/dl (6.4-8.2); Troponin I < 0.015 ng/ml (0-0.045)
[2020-09-27] MEDS ORDERED: DEXAMETHASONE SOD INJ 10 MG/ML VIAL IV ONE (14:26)
[2020-09-27] MEDS ORDERED: CEFEPIME 2,000 MG/20 ML VIAL IV STA (14:26)
[2020-09-27 14:48] LABS: Influenza A virus by PCR Negative (Neg); Influenza B virus by PCR Negative (Neg); RSV by PCR Negative (Neg)
[2020-09-27 14:53] LABS: SARS CoV2 RNA(COVID-19) InHosp POSITIVE (Negative)
[2020-09-27] MEDS ORDERED: ALUMINUM/MAGNESIUM SUSP 30 ML UDC PO PRN (19:23)
[2020-09-27] MEDS ORDERED: IPRATROPIUM BROMIDE/ALBUTEROL respimat INH INH PRN (19:23)
[2020-09-27] MEDS ORDERED: MAGNESIUM HYDROXIDE SUSP 30 ML UDC PO PRN (19:23)
[2020-09-27] MEDS ORDERED: DOCUSATE SODIUM/SENNA 50/8.6MG TAB PO PRN (19:23)
[2020-09-27] MEDS ORDERED: HYDROmorphone HCL 2 MG TAB PO PRN (19:23)
[2020-09-27] MEDS ORDERED: PIPERACILL/TAZOBAC CONSULT ACTIVE PRN (19:23)
[2020-09-27] MEDS ORDERED: ACETAMINOPHEN 325 MG TAB PO PRN (19:23)
[2020-09-27] MEDS ORDERED: POLYETHYLENE (MIRALAX) 17 GM PACK PO PRN (19:23)
[2020-09-27] MEDS ORDERED: ONDANSETRON INJ 2 MG/ML 2 ML VIAL IV PRN (19:23)
[2020-09-27] MEDS ORDERED: [UNRECOGNIZED DRUG - REMARK] INTNAS PRN (19:23)
[2020-09-27] MEDS ORDERED: ALBUTEROL HFA 8 GM INHALER INH PRN (19:46)
[2020-09-27] MEDS ORDERED: LEVALBUTEROL TARTRATE 15 GM HFA.AER.AD INH PRN (19:47)
--- NOTE | 2020-09-27 20:09 | Emergency Department Note ---
History of Present Illness General Chief complaint: Fever Stated complaint: TACHYCARDIA, FEVER Time Seen by Provider: 09/27/20 12:52 Source: patient, EMS, RN notes reviewed, old records reviewed and other (PCP) Mode of arrival: EMS Limitations: no limitations History of Present Illness Provider complaint: Anemia, fever Onset (ago): day(s) 1 Current Pain Intensity: 0 Associated symptoms: + cough, + fever/chills, + malaise and + shortness of breath Treatments prior to arrival: none This 75-year-old female sent in by her primary care physician over concerns with the patient has Covid. The patient had outpatient laboratory work which was concerning for anemia. She was recently hospitalized for Covid pneumonia. She currently denies any pain. The patient is currently on 4 L of oxygen which she is not normally on. She denies any other complaints. Home Medications Medication Instructions Recorded Confirmed Type aspirin 81 mg tablet,delayed 81 mg PO QAM 07/27/18 09/27/20 History release cholecalciferol (vitamin D3) 50 2,000 units PO QAM 07/27/18 09/27/20 History mcg (2,000 unit) capsule krill oil 500 mg capsule 500 mg PO QAM cap 06/29/19 09/27/20 History fluticasone propionate 50 2 sprays INTNAS DAILY PRN #47.4 gm 07/25/19 09/27/20 Rx mcg/actuation nasal spray,suspension ferrous sulfate 325 mg (65 mg 325 mg PO QAM 07/11/20 09/27/20 History iron) tablet calcium carbonate-vitamin D3 1 tab PO QAM 08/21/20 09/27/20 History duloxetine [Cymbalta] 120 mg PO QAM 08/21/20 09/27/20 History multivitamin 2 tab PO QAM 08/21/20 09/27/20 History trazodone 50 mg PO HS PRN 08/21/20 09/27/20 History furosemide 20 mg PO DAILY PRN #10 tab 08/31/20 09/27/20 Rx Combivent Respimat 1 puff INHALATION QID PRN 09/05/20 09/27/20 History cyclobenzaprine 5 mg PO TID PRN 09/05/20 09/27/20 History docusate sodium 100 mg PO BID 09/05/20 09/27/20 History heparin (porcine) 5,000 unit SUBCUT Q12H 09/05/20 09/27/20 History loratadine [Claritin] 10 mg PO QAM 09/05/20 09/27/20 History melatonin 6 mg PO HS PRN 09/05/20 09/27/20 History pantoprazole 40 mg PO DAILYBB 09/05/20 09/27/20 History potassium chloride 10 meq PO BID 09/05/20 09/27/20 History gabapentin 300 mg PO BID 30 Days #60 cap 09/19/20 09/27/20 Rx hydromorphone [Dilaudid] 2 mg PO Q6H PRN 14 Days #60 tab 09/19/20 09/27/20 Rx acetaminophen [Tylenol] 650 mg PO Q6H PRN 09/27/20 09/27/20 History ascorbic acid (vitamin C) [Vitamin 500 mg PO BID 09/27/20 09/27/20 History C] famotidine 20 mg PO QAM 09/27/20 09/27/20 History lidocaine 3 patch TRANSDERMAL QAM 09/27/20 09/27/20 History naloxone 4 mg INTRANASAL DIRECTED PRN 09/27/20 09/27/20 History polyethylene glycol 3350 [Miralax] 17 g PO DAILY PRN 09/27/20 09/27/20 History sennosides-docusate sodium 1 tab PO QAM PRN 09/27/20 09/27/20 History [Senokot-S] vitamin B complex 1 tab PO QAM 09/27/20 09/27/20 History zinc sulfate 220 mg PO QAM 09/27/20 09/27/20 History Allergies Allergy/AdvReac Type Severity Reaction Status Date / Time latex Allergy Mild contact Verified 09/27/20 15:02 dermatitis Sulfa (Sulfonamide Allergy Mild RASH Verified 09/27/20 15:02 Antibiotics) nickel Allergy Unknown contact Verified 09/27/20 15:02 dermatitis Past Med/Surg History Medical History Acute hypoxemic respiratory failure Acute leg pain Anemia Anxiety Atherosclerosis of aorta Bacteremia due to Gram-negative bacteria Chronic pain syndrome Degenerative disc disease Depression DVT (deep venous thrombosis) possibly, treated inpatient directly following knee replacement. no problems since. Emphysema of lung Noted on chest CTs but not reported by patient. Follicular lymphoma currently monitoring and treating with Dr Moseley (oncology). To have port placed for chemo by Dr Chow 09/17/20 Gastroesophageal reflux disease Hyperlipidemia Hypertension Leukocytosis Lumbar canal stenosis Mild aortic regurgitation Moderate aortic stenosis Moderate mitral regurgitation Myofascial pain Osteoarthritis Peripheral edema Currently, L >R, 2/2 lymphoma. Wearing compression socks. Persistent insomnia Piriformis syndrome Post laminectomy syndrome Presence of intrathecal pump Urinary tract infection currently finishing abx (08/21/20). not recurrent infections typically Surgical History H/O cataract removal with insertion of prosthetic lens bilateral History of cholecystectomy 1978 History of colonoscopy History of knee replacement procedure of right knee 2002 History of laminectomy lumbar ~2013 Previous back surgery 2006,2007,2013 S/P hip replacement bilateral 2015, 2016 Status post laminectomy with spinal fusion lumbar, 2007 & 2008 Family History Father Abdominal aneurysm Colorectal cancer Grandmother (Paternal) Cancer Other No family history of adverse response to anesthesia Denies family history of Ovarian cancer Prostate cancer Myocardial infarction Breast cancer Social History Smoking Status: Former smoker Second Hand Exposure: No; Hx Alcohol Use: No (\) Hx Substance Use: No Preferred Language: Citizen Of [place] Communication Ability: Effective Visual Impairment: Limited Hearing Ability: Normal Quality Control Lab Technician Required: No Beliefs That Will Affect Care: None marital status: / Current Living Situation: Rehab current occupational status: retired Feels Safe at Home: Yes Childhood Exposure to Second-Hand Smoke: Yes caffeine: Yes Dental Care, Regularly: No Physical Activity Frequency: Does not Exercise Seatbelt Use: always Sunscreen Use: Yes Assistive Devices: Glasses, Oxygen - Continuous and Walker Review of Systems A total of 10 systems reviewed and were otherwise negative Physical Exam Vital Signs Vital Signs - 24 hr 09/27/20 12:49 09/27/20 13:41 09/27/20 14:30 Temperature 37.9 C H Temperature Source Oral Pulse Rate 107 H Pulse Rate [Apical] 99 H Respiratory Rate 20 18 Blood Pressure 96/57 L Blood Pressure [Left Arm] 101/60 Blood Pressure Mean 70 Blood Pressure Mean [Left Arm] 73 Pulse Oximetry 93 96 95 Oxygen Delivery Method Nasal Cannula Nasal Cannula Nasal Cannula Oxygen Flow Rate 3 2 3 Sepsis Recent Fever Within 48 Hours No Sepsis New/Unexplained Change in Mental Status No Sepsis Action Taken by Nursing Physician Notified 09/27/20 15:00 09/27/20 16:51 Temperature Temperature Source Pulse Rate Pulse Rate [Apical] 111 H 72 Respiratory Rate 15 22 Blood Pressure Blood Pressure [Left Arm] 104/63 109/65 Blood Pressure Mean Blood Pressure Mean [Left Arm] 76 79 Pulse Oximetry 94 93 Oxygen Delivery Method Room Air Oxygen Flow Rate Sepsis Recent Fever Within 48 Hours Sepsis New/Unexplained Change in Mental Status Sepsis Action Taken by Nursing VITAL SIGNS - Vital signs and nursing notes were reviewed. GENERAL - 75-year-old female appearing stated age who is in no acute distress. Communicates well with provider and answers questions appropriately. SKIN - Without rashes. HEAD - NC/AT. EYES - PERRL with EOMI bilaterally. Sclera anicteric. Palpebral conjunctiva pink and moist with no injection noted. EARS - No deformities of external structures noted on gross examination bilaterally. No pain elicited with palpation of the tragus bilaterally. External auditory canals without discharge or otorrhea. Tympanic membranes pearly kamara without retraction or bulging. No fluid or purulent material visualized behind the TM. Handle of malleus, umbo, cone of light, pars tensa/flaccid all easily visualized. NOSE - Midline and without cyanosis. No epistaxis or purulent drainage noted. Septum midline without deviation or septal hematoma noted. MOUTH/OROPHARYNX - Without perioral cyanosis. Buccal mucosa pink and moist and without leukoplakia. Tongue midline with equal elevation of palate bilaterally. No tonsillar hypertrophy, erythema, or exudates noted. dentition noted. NECK - Neck with FROM. Supple to palpation. lymphadenopathy noted. No nuchal rigidity. LUNGS - Chest wall symmetric without accessory muscle use, intercostals retrac tions, or central cyanosis. Normal vesicular breath sounds CTA B/L. No wheezes, rales, or rhonchi appreciated. CARDIAC - RRR with S1/S2. No murmur, rubs, or gallops appreciated. ABDOMEN - Abdominal contour without pulsations or visible masses. BS normoactive all four quadrants. No tenderness, palpable masses, hepatosplenomegaly, or ascites noted. EXTREMITIES - No clubbing or peripheral cyanosis. No pretibial edema present. +3/5 radial, posterior tibial, and dorsalis pedis pulses palpated throughout. +5/5 strength noted in UE/LE bilaterally. NEUROLOGIC - Cranial nerves II through XII grossly intact. Sensory intact to light touch throughout. Patellar reflexes +2/4. PSYCH - A&Ox3 and cooperates fully with examiner. Pt is very pleasant and interacts well with examiner. Course Administered Medications Acetaminophen (Acetaminophen 325 Mg Tab) 650 mg PO Q4H PRN PRN Reason: Pain or Fever Stop: 10/27/20 19:22 Last Admin: 09/30/20 15:37 Dose: 650 mg Documented by: [id number] Admin: 09/30/20 06:20 Dose: 650 mg Documented by: [id number] Admin: 09/28/20 19:57 Dose: 650 mg Documented by: [id number] Ascorbic Acid (Ascorbic Acid 500 Mg Tab) 500 mg PO BID [facility] Stop: 10/27/20 20:59 Last Admin: 10/02/20 19:31 Dose: 500 mg Documented by: [id number] Admin: 10/02/20 09:02 Dose: 500 mg Documented by: [id number] Admin: 10/01/20 20:54 Dose: 500 mg Documented by: [id number] Admin: 10/01/20 07:39 Dose: 500 mg Documented by: [id number] Admin: 09/30/20 20:43 Dose: 500 mg Documented by: [id number] Admin: 09/30/20 10:19 Dose: 500 mg Documented by: [id number] Admin: 09/29/20 20:53 Dose: 500 mg Documented by: [id number] Admin: 09/29/20 07:43 Dose: 500 mg Documented by: [id number] Admin: 09/28/20 19:57 Dose: 500 mg Documented by: [id number] Admin: 09/28/20 08:24 Dose: 500 mg Documented by: [id number] Admin: 09/27/20 20:49 Dose: 500 mg Documented by: [id number] Aspirin (Aspirin 81 Mg Ectab) 81 mg PO QAM [facility] Stop: 10/28/20 08:59 Last Admin: 10/03/20 08:12 Dose: 81 mg Documented by: [id number] Admin: 10/02/20 09:01 Dose: 81 mg Documented by: [id number] Admin: 10/01/20 07:37 Dose: 81 mg Documented by: [id number] Admin: 09/30/20 10:18 Dose: 81 mg Documented by: [id number] Admin: 09/29/20 07:44 Dose: 81 mg Documented by: [id number] Admin: 09/28/20 08:24 Dose: 81 mg Documented by: [id number] Diclofenac Sodium (Diclofenac Sod 1% Gel 100 Gm Tube) 4 gm EXT QID [facility] Stop: 11/01/20 20:59 Last Admin: 10/02/20 19:32 Dose: 4 gm Documented by: [id number] Docusate Sodium (Docusate Sodium 100 Mg Cap) 100 mg PO BID [facility] Stop: 10/27/20 20:59 Last Admin: 10/02/20 19:28 Dose: 100 mg Documented by: [id number] Admin: 10/02/20 09:02 Dose: Not Given Documented by: [id number] Admin: 10/01/20 20:54 Dose: 100 mg Documented by: [id number] Admin: 10/01/20 07:41 Dose: Not Given Documented by: [id number] Admin: 09/30/20 20:46 Dose: Not Given Documented by: [id number] Admin: 09/30/20 10:32 Dose: Not Given Documented by: [id number] Admin: 09/29/20 20:40 Dose: 100 mg Documented by: [id number] Admin: 09/29/20 07:43 Dose: 100 mg Documented by: [id number] Admin: 09/28/20 19:57 Dose: Not Given Documented by: [id number] Admin: 09/28/20 08:22 Dose: 100 mg Documented by: [id number] Admin: 09/27/20 20:48 Dose: Not Given Documented by: [id number] Duloxetine HCl (Duloxetine Hcl 60 Mg Cap) [facility] [place]: 10/28/20 08:59 Last Admin: 10/03/20 08:10 Dose: 120 mg Documented by: [id number] Admin: 10/02/20 09:01 Dose: 120 mg Documented by: [id number] Admin: 10/01/20 07:39 Dose: 120 mg Documented by: [id number] Admin: 09/30/20 10:21 Dose: 120 mg Documented by: [id number] Admin: 09/29/20 07:43 Dose: 120 mg Documented by: [id number] Admin: 09/28/20 08:22 Dose: 120 mg Documented by: [id number] Ferrous Sulfate (Ferrous Sulfate 325 Mg Tab) 325 mg PO QAM [facility] Stop: 10/28/20 08:59 Last Admin: 10/03/20 08:11 Dose: 325 mg Documented by: [id number] Admin: 10/02/20 09:01 Dose: 325 mg Documented by: [id number] Admin: 10/01/20 07:39 Dose: 325 mg Documented by: [id number] Admin: 09/30/20 10:17 Dose: 325 mg Documented by: [id number] Admin: 09/29/20 07:43 Dose: 325 mg Documented by: [id number] Admin: 09/28/20 08:24 Dose: 325 mg Documented by: [id number] Gabapentin (Gabapentin 300 Mg Cap) 300 mg PO BID [facility] Stop: 10/27/20 20:59 Last Admin: 10/02/20 19:29 Dose: 300 mg Documented by: [id number] Admin: 10/02/20 09:02 Dose: 300 mg Documented by: [id number] Admin: 10/01/20 20:54 Dose: 300 mg Documented by: [id number] Admin: 10/01/20 07:38 Dose: 300 mg Documented by: [id number] Admin: 09/30/20 20:43 Dose: 300 mg Documented by: [id number] Admin: 09/30/20 10:20 Dose: 300 mg Documented by: [id number] Admin: 09/29/20 20:56 Dose: 300 mg Documented by: [id number] Admin: 09/29/20 07:43 Dose: 300 mg Documented by: [id number] Admin: 09/28/20 21:43 Dose: 300 mg Documented by: [id number] Admin: 09/28/20 08:24 Dose: 300 mg Documented by: [id number] Admin: 09/27/20 20:49 Dose: 300 mg Documented by: [id number] Heparin Sodium (Porcine) (Heparin Sod 5,000 Unit/0.5 Ml Vial) 5,000 units SQ Q12H [facility] Stop: 10/29/20 19:59 Last Admin: 10/02/20 19:28 Dose: 5,000 units Documented by: [id number] Admin: 10/02/20 09:03 Dose: 5,000 units Documented by: [id number] Admin: 10/01/20 20:56 Dose: 5,000 units Documented by: [id number] Admin: 10/01/20 07:43 Dose: 5,000 units Documented by: [id number] Admin: 09/30/20 20:42 Dose: Not Given Documented by: [id number] Admin: 09/30/20 10:08 Dose: 5,000 units Documented by: [id number] Admin: 09/29/20 20:39 Dose: Not Given Documented by: [id number] Piperacillin Sod/Tazobactam (Sod 4.5 gm/ Dextrose) 120 mls @ 30 mls/hr IV Q8H [facility]; Protocol Stop: 10/05/20 01:59 Last Infusion: 10/03/20 05:05 Dose: 0 mls/hr Documented by: [id number] Admin: 10/03/20 00:27 Dose: 30 mls/hr Documented by: [id number] Infusion: 10/02/20 21:23 Dose: 0 mls/hr Documented by: [id number] Admin: 10/02/20 17:47 Dose: 30 mls/hr Documented by: [id number] Infusion: 10/02/20 15:00 Dose: 0 mls/hr Documented by: [id number] Admin: 10/02/20 10:38 Dose: 30 mls/hr Documented by: [id number] Infusion: 10/02/20 08:58 Dose: 0 mls/hr Documented by: [id number] Admin: 10/02/20 02:56 Dose: 30 mls/hr Documented by: [id number] Infusion: 10/01/20 21:58 Dose: 0 mls/hr Documented by: [id number] Admin: 10/01/20 17:56 Dose: 30 mls/hr Documented by: [id number] Infusion: 10/01/20 12:56 Dose: 0 mls/hr Documented by: [id number] Admin: 10/01/20 09:09 Dose: 30 mls/hr Documented by: [id number] Infusion: 10/01/20 05:21 Dose: 0 mls/hr Documented by: [id number] Admin: 10/01/20 01:17 Dose: 30 mls/hr Documented by: [id number] Infusion: 09/30/20 22:20 Dose: 0 mls/hr Documented by: [id number] Admin: 09/30/20 18:08 Dose: 30 mls/hr Documented by: [id number] Infusion: 09/30/20 15:23 Dose: 0 mls/hr Documented by: [id number] Admin: 09/30/20 11:42 Dose: 30 mls/hr Documented by: [id number] Infusion: 09/30/20 05:35 Dose: 0 mls/hr Documented by: [id number] Admin: 09/30/20 01:15 Dose: 30 mls/hr Documented by: [id number] Infusion: 09/29/20 22:04 Dose: 0 mls/hr Documented by: [id number] Admin: 09/29/20 17:48 Dose: 30 mls/hr Documented by: [id number] Infusion: 09/29/20 13:53 Dose: 0 mls/hr Documented by: [id number] Admin: 09/29/20 09:52 Dose: 30 mls/hr Documented by: [id number] Infusion: 09/29/20 07:27 Dose: 0 mls/hr Documented by: [id number] Admin: 09/29/20 01:36 Dose: 30 mls/hr Documented by: [id number] Infusion: 09/28/20 22:14 Dose: 0 mls/hr Documented by: [id number] Admin: 09/28/20 18:10 Dose: 30 mls/hr Documented by: [id number] Infusion: 09/28/20 15:03 Dose: 0 mls/hr Documented by: [id number] Admin: 09/28/20 10:25 Dose: 30 mls/hr Documented by: [id number] Infusion: 09/28/20 06:39 Dose: 0 mls/hr Documented by: [id number] Admin: 09/28/20 02:42 Dose: 30 mls/hr Documented by: [id number] Lactobacillus Acidophilus (Lactobacillus Acidophilus 1 Gm Pack) 1 gm PO TIDM [facility] Stop: 11/01/20 07:59 Last Admin: 10/02/20 17:43 Dose: 1 gm Documented by: [id number] Admin: 10/02/20 12:27 Dose: 1 gm Documented by: [id number] Admin: 10/02/20 09:03 Dose: 1 gm Documented by: [id number] Lidocaine (Lidocaine 5% 1 Patch) 3 patch TD DAILY [facility] Stop: 10/30/20 08:59 Last Admin: 10/03/20 08:10 Dose: 3 patch Documented by: [id number] Admin: 10/02/20 09:00 Dose: 3 patch Documented by: [id number] Admin: 10/01/20 08:44 Dose: Not Given Documented by: [id number] Admin: 09/30/20 10:25 Dose: 3 patch Documented by: [id number] Loratadine (Loratadine 10 Mg Tab) 10 mg PO QAM [facility] Stop: 10/28/20 08:59 Last Admin: 10/03/20 08:12 Dose: 10 mg Documented by: [id number] Admin: 10/02/20 09:01 Dose: 10 mg Documented by: [id number] Admin: 10/01/20 07:38 Dose: 10 mg Documented by: [id number] Admin: 09/30/20 10:21 Dose: 10 mg Documented by: [id number] Admin: 09/29/20 07:44 Dose: 10 mg Documented by: [id number] Admin: 09/28/20 08:22 Dose: 10 mg Documented by: [id number] Melatonin (Melatonin 3 Mg Tab) 6 mg PO HS PRN PRN Reason: Sleep Stop: 10/27/20 19:22 Last Admin: 10/01/20 21:01 Dose: 6 mg Documented by: [id number] Admin: 09/30/20 20:58 Dose: 6 mg Documented by: [id number] Miscellaneous (Remove Lidoderm Patch) 1 ea N/A HS [facility] Stop: 10/30/20 20:59 Last Admin: 10/02/20 19:31 Dose: 1 ea Documented by: [id number] Admin: 10/01/20 20:57 Dose: 1 ea Documented by: [id number] Admin: 09/30/20 20:44 Dose: 1 ea Documented by: [id number] Multivitamins (Multivitamin Tab) 2 tab PO QAM [facility] Stop: 10/28/20 08:59 Last Admin: 10/03/20 08:11 Dose: 2 tab Documented by: [id number] Admin: 10/02/20 09:01 Dose: 2 tab Documented by: [id number] Admin: 10/01/20 07:40 Dose: 2 tab Documented by: [id number] Admin: 09/30/20 10:20 Dose: 2 tab Documented by: [id number] Admin: 09/29/20 07:44 Dose: 2 tab Documented by: [id number] Admin: 09/28/20 08:23 Dose: 2 tab Documented by: [id number] Multivitamins/Minerals (Calcium 600mg + Vit D 400 Iu Tab) 1 tab PO QAM [facility] Stop: 10/28/20 08:59 Last Admin: 10/02/20 09:01 Dose: 1 tab Documented by: [id number] Admin: 10/01/20 07:42 Dose: 1 tab Documented by: [id number] Admin: 09/30/20 10:20 Dose: 1 tab Documented by: [id number] Admin: 09/29/20 07:44 Dose: 1 tab Documented by: [id number] Admin: 09/28/20 08:23 Dose: 1 tab Documented by: [id number] Oxycodone/Acetaminophen (Oxycodone/Acetaminophen 5mg/325mg Tab) 1 tab PO Q4H PRN PRN Reason: Pain Stop: 10/15/20 14:34 Last Admin: 10/02/20 10:47 Dose: 1 tab Documented by: [id number] Pantoprazole Sodium (Pantoprazole 40 Mg Tab) 40 mg PO BID [facility] Stop: 10/28/20 20:59 Last Admin: 10/02/20 19:27 Dose: 40 mg Documented by: [id number] Admin: 10/02/20 09:01 Dose: 40 mg Documented by: [id number] Admin: 10/01/20 20:55 Dose: 40 mg Documented by: [id number] Admin: 10/01/20 07:39 Dose: 40 mg Documented by: [id number] Admin: 09/30/20 20:43 Dose: 40 mg Documented by: [id number] Admin: 09/30/20 10:21 Dose: 40 mg Documented by: [id number] Admin: 09/29/20 20:53 Dose: 40 mg Documented by: [id number] Admin: 09/29/20 07:43 Dose: 40 mg Documented by: [id number] Admin: 09/28/20 19:56 Dose: 40 mg Documented by: [id number] Potassium Chloride (Potassium Chloride 10 Meq Tabcr) 10 meq PO BID [facility] Stop: 10/27/20 20:59 Last Admin: 10/02/20 19:30 Dose: 10 meq Documented by: [id number] Admin: 10/02/20 09:01 Dose: 10 meq Documented by: [id number] Admin: 10/01/20 20:54 Dose: 10 meq Documented by: [id number] Admin: 10/01/20 07:38 Dose: 10 meq Documented by: [id number] Admin: 09/30/20 20:43 Dose: 10 meq Documented by: [id number] Admin: 09/30/20 10:20 Dose: 10 meq Documented by: [id number] Admin: 09/29/20 20:55 Dose: 10 meq Documented by: [id number] Admin: 09/29/20 07:43 Dose: 10 meq Documented by: [id number] Admin: 09/28/20 19:58 Dose: 10 meq Documented by: [id number] Admin: 09/28/20 08:25 Dose: 10 meq Documented by: [id number] Admin: 09/27/20 20:48 Dose: 10 meq Documented by: [id number] Sennosides (Senna 8.6 Mg Tab) 17.2 mg PO QAM [facility] Stop: 10/29/20 08:59 Last Admin: 10/02/20 09:02 Dose: Not Given Documented by: [id number] Admin: 10/01/20 07:41 Dose: Not Given Documented by: [id number] Admin: 09/30/20 10:32 Dose: Not Given Documented by: [id number] Admin: 09/29/20 09:53 Dose: 17.2 mg Documented by: [id number] Trazodone HCl (Trazodone Hcl 50 Mg Tab) 50 mg PO HS PRN PRN Reason: sleep Stop: 10/27/20 19:22 Last Admin: 10/01/20 21:02 Dose: 50 mg Documented by: [id number] Admin: 09/30/20 20:57 Dose: 50 mg Documented by: [id number] Admin: 09/28/20 21:44 Dose: 50 mg Documented by: [id number] Vitamin B Complex (Vitamin B Complex Tab) 1 tab PO QAM [facility] Stop: 10/28/20 08:59 Last Admin: 10/03/20 08:09 Dose: 1 tab Documented by: [id number] Admin: 10/02/20 09:02 Dose: 1 tab Documented by: [id number] Admin: 10/01/20 07:41 Dose: 1 tab Documented by: [id number] Admin: 09/30/20 10:21 Dose: 1 tab Documented by: [id number] Admin: 09/29/20 07:43 Dose: 1 tab Documented by: [id number] Admin: 09/28/20 08:24 Dose: 1 tab Documented by: [id number] Vitamin D (Cholecalciferol 1,000 Units 25 Mcg Tab) 2,000 units PO QAM [facility] Stop: 10/28/20 08:59 Last Admin: 10/03/20 08:10 Dose: 2,000 units Documented by: [id number] Admin: 10/02/20 09:01 Dose: 2,000 units Documented by: [id number] Admin: 10/01/20 07:41 Dose: 2,000 units Documented by: [id number] Admin: 09/30/20 10:19 Dose: 2,000 units Documented by: [id number] Admin: 09/29/20 07:44 Dose: 2,000 units Documented by: [id number] Admin: 09/28/20 08:23 Dose: 2,000 units Documented by: [id number] Zinc Sulfate (Zinc Sulfate 220 Mg Capsule) [facility] [place] Stop: 10/28/20 08:59 Last Admin: 10/03/20 08:11 Dose: 220 mg Documented by: [id number] Admin: 10/02/20 09:01 Dose: 220 mg Documented by: [id number] Admin: 10/01/20 07:41 Dose: 220 mg Documented by: [id number] Admin: 09/30/20 10:17 Dose: 220 mg Documented by: [id number] Admin: 09/29/20 07:43 Dose: 220 mg Documented by: [id number] Admin: 09/28/20 08:23 Dose: 220 mg Documented by: [id number] Discontinued Medications Cyclobenzaprine HCl (Cyclobenzaprine Hcl 5 Mg Tab) 5 mg PO TID PRN PRN Reason: Muscle Spasm Stop: 10/27/20 19:22 Last Admin: 10/01/20 22:05 Dose: 5 mg Documented by: [id number] Admin: 09/30/20 20:57 Dose: 5 mg Documented by: [id number] Admin: 09/28/20 21:43 Dose: 5 mg Documented by: [id number] Dexamethasone (Dexamethasone Sod Inj 10 Mg/Ml Vial) 10 mg IV NOW ONE Stop: 09/27/20 14:27 Last Admin: 09/27/20 16:50 Dose: 10 mg Documented by: [id number] Famotidine (Famotidine 20 Mg Tab) [facility] [place] Stop: 10/28/20 08:59 Last Admin: 09/29/20 07:43 Dose: 20 mg Documented by: [id number] Admin: 09/28/20 08:23 Dose: 20 mg Documented by: [id number] Heparin Sodium (Porcine) (Heparin Sod (Porcine) 5,000 Units/Ml Vial) 5,000 units SQ Q12H [facility] Stop: 10/27/20 19:59 Last Admin: 09/29/20 07:27 Dose: Not Given Documented by: [id number] Admin: 09/28/20 19:57 Dose: Not Given Documented by: [id number] Admin: 09/28/20 08:25 Dose: Not Given Documented by: [id number] Admin: 09/27/20 20:47 Dose: Not Given Documented by: [id number] Acetaminophen (Ofirmev) 1,000 mg in 100 mls @ 400 mls/hr IV NOW STA Stop: 09/27/20 14:32 Last Infusion: 09/27/20 18:02 Dose: 0 mls/hr Documented by: [id number] Admin: 09/27/20 16:50 Dose: 400 mls/hr Documented by: [id number] Cefepime HCl (Maxipime) 2,000 mg in 20 mls @ 5 mls/min IV NOW STA; Protocol Stop: 09/27/20 14:29 Last Admin: 09/27/20 16:50 Dose: 5 mls/min Documented by: [id number] Dexamethasone 6 mg/ Syringe 1.5 mls @ 1 mls/min IV Q12H [facility] Stop: 10/28/20 03:59 Last Admin: 10/02/20 17:43 Dose: 1 mls/min Documented by: [id number] Admin: 10/02/20 02:59 Dose: 1 mls/min Documented by: [id number] Admin: 10/01/20 15:40 Dose: 1 mls/min Documented by: [id number] Admin: 10/01/20 04:08 Dose: 1 mls/min Documented by: [id number] Admin: 09/30/20 15:39 Dose: 1 mls/min Documented by: [id number] Admin: 09/30/20 04:10 Dose: 1 mls/min Documented by: [id number] Admin: 09/29/20 16:18 Dose: 1 mls/min Documented by: [id number] Admin: 09/29/20 04:16 Dose: 1 mls/min Documented by: [id number] Admin: 09/28/20 16:20 Dose: 1 mls/min Documented by: [id number] Admin: 09/28/20 03:47 Dose: 1 mls/min Documented by: [id number] Piperacillin Sod/Tazobactam (Sod 4.5 gm/ Dextrose) 120 mls @ 200 mls/hr IV 2015 ONE; Protocol Stop: 09/27/20 20:50 Last Infusion: 09/27/20 21:44 Dose: 0 mls/hr Documented by: [id number] Admin: 09/27/20 20:48 Dose: 200 mls/hr Documented by: [id number] Remdesivir 200 mg/ Sodium (Chloride) 250 mls @ 125 mls/hr IV ONE ONE; Protocol Stop: 09/28/20 10:44 Last Infusion: 09/28/20 11:25 Dose: 0 mls/hr Documented by: [id number] Admin: 09/28/20 09:20 Dose: 125 mls/hr Documented by: [id number] Remdesivir 100 mg/ Sodium (Chloride) 250 mls @ 250 mls/hr IV Q24H [facility]; Protocol Stop: 10/02/20 09:59 Last Infusion: 10/02/20 10:00 Dose: 0 mls/hr Documented by: [id number] Admin: 10/02/20 08:59 Dose: 250 mls/hr Documented by: [id number] Infusion: 10/01/20 09:11 Dose: 0 mls/hr Documented by: [id number] Admin: 10/01/20 07:47 Dose: 250 mls/hr Documented by: [id number] Infusion: 09/30/20 11:39 Dose: 0 mls/hr Documented by: [id number] Admin: 09/30/20 10:13 Dose: 250 mls/hr Documented by: [id number] Infusion: 09/29/20 08:40 Dose: 0 mls/hr Documented by: [id number] Admin: 09/29/20 07:40 Dose: 250 mls/hr Documented by: [id number] Lidocaine (Lidocaine 5% 1 Patch) 3 patch TD DAILY@0500 [facility] Stop: 10/28/20 04:59 Last Admin: 09/30/20 06:21 Dose: Not Given Documented by: [id number] Admin: 09/29/20 06:12 Dose: 3 patch Documented by: [id number] Admin: 09/28/20 05:18 Dose: 3 patch Documented by: [id number] Miscellaneous (Remove Lidoderm Patch) 1 ea N/A DAILY@1700 [facility] Stop: 10/28/20 16:59 Last Admin: 09/29/20 17:47 Dose: 1 ea Documented by: [id number] Admin: 09/28/20 18:34 Dose: 1 ea Documented by: [id number] Miscellaneous Information (Nursing To Pharmacy Communication) 1 ea N/A TODAY [facility] Stop: 10/30/20 05:44 Last Admin: 09/30/20 06:22 Dose: Not Given Documented by: [id number] Pantoprazole Sodium (Pantoprazole 40 Mg Tab) 40 mg PO DAILYBB [facility] Stop: 10/28/20 06:29 Last Admin: 09/28/20 05:19 Dose: 40 mg Documented by: [id number] Sodium Chloride (Sodium Chloride 0.9% 10ml Flush) 30 ml IV DAILY@1000 [facility] Stop: 10/02/20 10:01 Last Admin: 10/02/20 10:00 Dose: 30 ml Documented by: [id number] Admin: 10/01/20 08:42 Dose: 30 ml Documented by: [id number] Admin: 09/30/20 11:39 Dose: 30 ml Documented by: [id number] Admin: 09/29/20 09:53 Dose: 30 ml Documented by: [id number] Admin: 09/28/20 11:25 Dose: 30 ml Documented by: [id number] Critical Care Time I have personally spent greater than 90 minutes of critical care time in the direct management of this patient. This includes bedside care, interpretation of diagnostic studies, and testing, discussion with consultants, patient, and family members, and other required patient management activities. This 90 minutes is in excess of all separately billable procedures. Medical Decision Making Differential Diagnosis Infection, dehydration, metabolic abnormality, hypo/hyperglycemia, electrolyte disturbance, anemia, hypoxia, cardiac sources, intracerebral event, toxicologic, neurologic, as well as other pathologies. Medical Records Attestation: I reviewed the patient's medical records. Home Medications Current Medication List: was personally reviewed by me Laboratory Data Attestation: I reviewed the patient's lab results. Result diagrams: 10/03/20 06:54 10/03/20 06:54 Lab Results 09/27/20 09/27/20 09/27/20 Range/Units 13:20 13:20 13:33 WBC 8.28 (4.8-10.8) K/uL RBC 2.92 L (4.2-5.4) M/uL Hgb 7.7 L (12.0-16.0) g/dL Hct 24.5 L (37-47) % MCV 83.9 (80-100) fL MCH 26.4 (25-34) pg MCHC 31.4 L (32-36) g/dL RDW Std Deviation 46.4 H (36.4-46.3) fL RDW Coeff of Inge 15.0 H (11.5-14.5) % Plt Count 381 (130-400) K/uL MPV 8.7 (7.4-10.4) fL Immature Gran % (Auto) 0.2 % Neut % (Auto) 92.0 % Lymph % (Auto) 4.0 % Ferry % (Auto) 3.6 % Eos % (Auto) 0.1 % Baso % (Auto) 0.1 % Neut # (Auto) 7.61 H (1.4-6.5) K/uL Lymph # (Auto) 0.33 L (1.2-3.4) K/uL Ferry # (Auto) 0.30 (0.11-0.59) K/uL Eos # (Auto) 0.01 (0-0.5) K/uL Baso # (Auto) 0.01 (0-0.2) K/uL Immature Gran # (Auto) 0.02 (0.00-0.02) K/uL ESR (0-21) mm/hr PT (9.0-12.0) Seconds INR (0.9-1.1) APTT (21.0-31.0) Seconds PTT Ratio D-Dimer (0-500) ug/L FEU Sodium (136-145) mmol/L Potassium (3.5-5.1) mmol/L Chloride (98-107) mmol/L Carbon Dioxide (21-32) mmol/L Anion Gap (3-11) BUN (7-18) mg/dl Creatinine (0.6-1.2) mg/dl Est Cr Clr Drug Dosing ml/min Est GFR ( Amer) Est GFR (Non-Af Amer) BUN/Creatinine Ratio (10-20) Glucose (70-99) mg/dl Lactate (0.4-2.0) mmol/L Calcium (8.5-10.1) mg/dl Magnesium (1.8-2.4) mg/dl Ferritin (8-388) ng/ml Total Bilirubin (0.2-1) mg/dl AST (15-37) U/L ALT (12-78) U/L Alkaline Phosphatase (45-117) U/L Lactate Dehydrogenase (84-246) U/L Troponin I (0-0.045) ng/ml C-Reactive Protein (0-0.29) mg/dl Total Protein (6.4-8.2) gm/dl Albumin (3.4-5.0) gm/dl Globulin (2.5-4.0) gm/dl Albumin/Globulin Ratio (0.9-2) Procalcitonin (0-0.5) ng/ml COVID-19 Eval Order [facility] at [facility] COVID-19 PCR POSITIVE A* (Negative) Influenza Type A (PCR) Negative (Neg) Influenza Type B (PCR) Negative (Neg) RSV (RT-PCR) Negative (Neg) Blood Type Antibody Screen Crossmatch 09/27/20 09/27/20 09/27/20 Range/Units 13:33 13:33 13:33 WBC (4.8-10.8) K/uL RBC (4.2-5.4) M/uL Hgb (12.0-16.0) g/dL Hct (37-47) % MCV (80-100) fL MCH (25-34) pg MCHC (32-36) g/dL RDW Std Deviation (36.4-46.3) fL RDW Coeff of Inge (11.5-14.5) % Plt Count (130-400) K/uL MPV (7.4-10.4) fL Immature Gran % (Auto) % Neut % (Auto) % Lymph % (Auto) % Ferry % (Auto) % Eos % (Auto) % Baso % (Auto) % Neut # (Auto) (1.4-6.5) K/uL Lymph # (Auto) (1.2-3.4) K/uL Ferry # (Auto) (0.11-0.59) K/uL Eos # (Auto) (0-0.5) K/uL Baso # (Auto) (0-0.2) K/uL Immature Gran # (Auto) (0.00-0.02) K/uL ESR 48 H (0-21) mm/hr PT 11.6 (9.0-12.0) Seconds INR 1.1 (0.9-1.1) APTT 40.2 H (21.0-31.0) Seconds PTT Ratio 1.4 D-Dimer 2010 H* (0-500) ug/L FEU Sodium 134 L (136-145) mmol/L Potassium 4.5 (3.5-5.1) mmol/L Chloride 104 (98-107) mmol/L Carbon Dioxide 25 (21-32) mmol/L Anion Gap 5.0 (3-11) BUN 9 (7-18) mg/dl Creatinine 0.69 (0.6-1.2) mg/dl Est Cr Clr Drug Dosing 76.6 ml/min Est GFR ( Amer) 99.4 Est GFR (Non-Af Amer) 85.8 BUN/Creatinine Ratio 13.3 (10-20) Glucose 88 (70-99) mg/dl Lactate (0.4-2.0) mmol/L Calcium 8.5 (8.5-10.1) mg/dl Magnesium 1.9 (1.8-2.4) mg/dl Ferritin 479.0 H (8-388) ng/ml Total Bilirubin 0.4 (0.2-1) mg/dl AST 24 (15-37) U/L ALT 18 (12-78) U/L Alkaline Phosphatase 143 H (45-117) U/L Lactate Dehydrogenase (84-246) U/L Troponin I < 0.015 (0-0.045) ng/ml C-Reactive Protein 18.60 H (0-0.29) mg/dl Total Protein 6.1 L (6.4-8.2) gm/dl Albumin 2.1 L (3.4-5.0) gm/dl Globulin 4.0 (2.5-4.0) gm/dl Albumin/Globulin Ratio 0.5 L (0.9-2) Procalcitonin (0-0.5) ng/ml COVID-19 Eval Order COVID-19 PCR (Negative) Influenza Type A (PCR) (Neg) Influenza Type B (PCR) (Neg) RSV (RT-PCR) (Neg) Blood Type Antibody Screen Crossmatch 09/27/20 09/27/20 09/27/20 Range/Units 13:33 13:33 13:33 WBC (4.8-10.8) K/uL RBC (4.2-5.4) M/uL Hgb (12.0-16.0) g/dL Hct (37-47) % MCV (80-100) fL MCH (25-34) pg MCHC (32-36) g/dL RDW Std Deviation (36.4-46.3) fL RDW Coeff of Inge (11.5-14.5) % Plt Count (130-400) K/uL MPV (7.4-10.4) fL Immature Gran % (Auto) % Neut % (Auto) % Lymph % (Auto) % Ferry % (Auto) % Eos % (Auto) % Baso % (Auto) % Neut # (Auto) (1.4-6.5) K/uL Lymph # (Auto) (1.2-3.4) K/uL Ferry # (Auto) (0.11-0.59) K/uL Eos # (Auto) (0-0.5) K/uL Baso # (Auto) (0-0.2) K/uL Immature Gran # (Auto) (0.00-0.02) K/uL ESR (0-21) mm/hr PT (9.0-12.0) Seconds INR (0.9-1.1) APTT (21.0-31.0) Seconds PTT Ratio D-Dimer (0-500) ug/L FEU Sodium (136-145) mmol/L Potassium (3.5-5.1) mmol/L Chloride (98-107) mmol/L Carbon Dioxide (21-32) mmol/L Anion Gap (3-11) BUN (7-18) mg/dl Creatinine (0.6-1.2) mg/dl Est Cr Clr Drug Dosing ml/min Est GFR ( Amer) Est GFR (Non-Af Amer) BUN/Creatinine Ratio (10-20) Glucose (70-99) mg/dl Lactate 0.6 (0.4-2.0) mmol/L Calcium (8.5-10.1) mg/dl Magnesium (1.8-2.4) mg/dl Ferritin (8-388) ng/ml Total Bilirubin (0.2-1) mg/dl AST (15-37) U/L ALT (12-78) U/L Alkaline Phosphatase (45-117) U/L Lactate Dehydrogenase 213 (84-246) U/L Troponin I (0-0.045) ng/ml C-Reactive Protein (0-0.29) mg/dl Total Protein (6.4-8.2) gm/dl Albumin (3.4-5.0) gm/dl Globulin (2.5-4.0) gm/dl Albumin/Globulin Ratio (0.9-2) Procalcitonin 0.51 H (0-0.5) ng/ml COVID-19 Eval Order COVID-19 PCR (Negative) Influenza Type A (PCR) (Neg) Influenza Type B (PCR) (Neg) RSV (RT-PCR) (Neg) Blood Type Antibody Screen Crossmatch 09/27/20 Range/Units 13:44 WBC (4.8-10.8) K/uL RBC (4.2-5.4) M/uL Hgb (12.0-16.0) g/dL Hct (37-47) % MCV (80-100) fL MCH (25-34) pg MCHC (32-36) g/dL RDW Std Deviation (36.4-46.3) fL RDW Coeff of Inge (11.5-14.5) % Plt Count (130-400) K/uL MPV (7.4-10.4) fL Immature Gran % (Auto) % Neut % (Auto) % Lymph % (Auto) % Ferry % (Auto) % Eos % (Auto) % Baso % (Auto) % Neut # (Auto) (1.4-6.5) K/uL Lymph # (Auto) (1.2-3.4) K/uL Ferry # (Auto) (0.11-0.59) K/uL Eos # (Auto) (0-0.5) K/uL Baso # (Auto) (0-0.2) K/uL Immature Gran # (Auto) (0.00-0.02) K/uL ESR (0-21) mm/hr PT (9.0-12.0) Seconds INR (0.9-1.1) APTT (21.0-31.0) Seconds PTT Ratio D-Dimer (0-500) ug/L FEU Sodium (136-145) mmol/L Potassium (3.5-5.1) mmol/L Chloride (98-107) mmol/L Carbon Dioxide (21-32) mmol/L Anion Gap (3-11) BUN (7-18) mg/dl Creatinine (0.6-1.2) mg/dl Est Cr Clr Drug Dosing ml/min Est GFR ( Amer) Est GFR (Non-Af Amer) BUN/Creatinine Ratio (10-20) Glucose (70-99) mg/dl Lactate (0.4-2.0) mmol/L Calcium (8.5-10.1) mg/dl Magnesium (1.8-2.4) mg/dl Ferritin (8-388) ng/ml Total Bilirubin (0.2-1) mg/dl AST (15-37) U/L ALT (12-78) U/L Alkaline Phosphatase (45-117) U/L Lactate Dehydrogenase (84-246) U/L Troponin I (0-0.045) ng/ml C-Reactive Protein (0-0.29) mg/dl Total Protein (6.4-8.2) gm/dl Albumin (3.4-5.0) gm/dl Globulin (2.5-4.0) gm/dl Albumin/Globulin Ratio (0.9-2) Procalcitonin (0-0.5) ng/ml COVID-19 Eval Order COVID-19 PCR (Negative) Influenza Type A (PCR) (Neg) Influenza Type B (PCR) (Neg) RSV (RT-PCR) (Neg) Blood Type B Positive Antibody Screen NEGATIVE Crossmatch See Detail Imaging Data My Impression: [facility], [phone] XRay Report Patient: JAYLEEN BARRERA AAdmit Date: 09/27/20MR#: [id number][address]:[id number]: [facility]: [facility] Zip: [place] [address]U[place]: 75Location: EDSex: FRoom/Bed:Att Phy:Diagnosis: TACHYCARDIA, FEVERPri [facility]y: [facility] Date: [facility]20Fam Phy:Interpreting Phy: Danyel Means MDAdmit Phy: Ordering Phy: Caio Layton MD cc: ~ SINGLE VIEW CHEST CLINICAL HISTORY: Sepsis. FINDINGS: An AP, portable, upright chest radiograph is compared to chest x-ray and chest CT dated 09/25/2020. The cardiomediastinal silhouette is unremarkable noting atherosclerotic calcification of the thoracic aorta. Emphysema and chronic interstitial thickening is similar to previous. There is chronic elevat ion of right hemidiaphragm. There are bilateral airspace opacities, increasing in the right midlung and at the left lung base as compared to previous. No large pleural effusion or pneumothorax is seen. The skeletal structures are osteopenic. The bony thorax is grossly intact. Degenerative change is noted in the shoulders and thoracic spine. IMPRESSION: 1. Emphysema. 2. Bilateral airspace opacities have modestly increased as compared to 09/25/2020. ACT 112: Negative or not required by law. Electronically signed by: Danyel Means M.D. 09/27/2020 1:52 PM Dictated: 09/27/20 1351Transcribed: 09/27/20 1351 ECG Data Attestation: I personally reviewed and interpreted this ECG as follows: Indication: + weakness Rate (beats per minute): 103 Rhythm: + sinus tachycardia ECG Intervals/blocks: + Normal QT-c (450) ECG [place]: + Normal ECG ST segments: no ST depression and no ST elevation Comparison ECG Date: from (09/25/2020) Change: no significant change MDM Narrative This 75-year-old female who is Covid pneumonia who presents back to the emergency department for concerns of weakness. The patient is anemic and will require blood transfusion her hemoglobin here is 7.7. Packed unit of red blood cells were ordered. Patient was also started on cefepime as well as Decadron. Due to the nature of the patient's multiple comorbidities I did discuss the case with the hospitalist service who did agree to meet the patient. Patient was seen and evaluated as above in room a9. Review was performed of nursing notes and vital signs. I did review pertinent previous visits and patient history. After obtaining a thorough history and physical examination the above work up was performed. An order was placed for continuous cardiac monitoring. The monitor shows a rate of 100 with Normal SInus rhythm. The patient was evaluated during the global COVID-19 pandemic, and that diagnosis was suspected/considered upon their initial presentation. Their evaluation, treatment and testing was consistent with current guidelines for patients who present with complaints or symptoms that may be related to COVID- 19. Impression & Plan Pneumonia due to 2019 novel coronavirus, Anemia Discharge Plan Visit Data Chief Complaint: Fever Stated Complaint: TACHYCARDIA, FEVER ED Provider: Caio Layton Discharge Problem: Pneumonia due to 2019 novel coronavirus, Anemia Patient Disposition: Admitted As Inpatient Discharge Instructions Interventions: ED Discharge Assessment Last Done: 09/27/20 18:34 Discharge Problem: Anemia Qualifiers: Anemia type: unspecified type Qualified Code(s): D64.9 - Anemia, unspecified
[2020-09-27] MEDS ORDERED: PIPERACILLIN/TAZOBACTAM 4.5 GM in DEXTROSE 5% 100 ML IV ONE (20:15)
--- NOTE | 2020-09-27 20:21 | History & Physical Report ---
Date of Service September 27, 2020 Assessment & Plan (1) Pneumonia due to 2019 novel coronavirus: Chest x-ray with worsening infiltrates bilaterally- Admit to monitored bed. Decadron 6 mg IV daily Convalescent plasma Zosyn 4.5 g IV every 8 hours Ventolin HFA 2 puffs 4 times daily as needed Present on Admission?: Yes (2) Signs and symptoms of anemia: Type and screen line hemoglobin 7.7 upon admission. We will transfuse 1 unit PRBCs due to symptomatology and accompanying Covid infection Present on Admission?: Yes (3) (HFpEF) heart failure with preserved ejection fraction: Continue current regimen without changes Present on Admission?: Yes (4) Hypertension: (5) Gastroesophageal reflux disease: Continue famotidine Present on Admission?: Yes Admission and Anticipated Discharge Date Admission Date: September 27, 2020 History of Present Illness Chief Complaint: The patient is referred to department from the longterm due to their concerns regarding a low pulse ox Primary Care Provider: Gunner Garcia MD The patient is a 75-year-old female with most recent admissions to [facility] from 08/26-08/31 and 09/05-09/19 for Covid related illnesses. During her asse ssment at the longterm today, she was found to be mildly hypoxic, and she was then referred to the emergency department. In the emergency department temperature was 100.2 F, hemoglobin was 7.7, D-dimer was 2010 and albumin was 2.1. COVID-19 test was positive. Chest x-ray showed increasing bilateral infiltrates. Allergies Allergy/AdvReac Type Severity Reaction Status Date / Time latex Allergy Mild contact Verified 09/27/20 15:02 dermatitis Sulfa (Sulfonamide Allergy Mild RASH Verified 09/27/20 15:02 Antibiotics) nickel Allergy Unknown contact Verified 09/27/20 15:02 dermatitis Home Medications Medication Instructions Recorded Confirmed Type aspirin 81 mg tablet,delayed 81 mg PO QAM 07/27/18 09/27/20 History release cholecalciferol (vitamin D3) 50 2,000 units PO QAM 07/27/18 09/27/20 History mcg (2,000 unit) capsule krill oil 500 mg capsule 500 mg PO QAM cap 06/29/19 09/27/20 History fluticasone propionate 50 2 sprays INTNAS DAILY PRN #47.4 gm 07/25/19 09/27/20 Rx mcg/actuation nasal spray,suspension ferrous sulfate 325 mg (65 mg 325 mg PO QAM 07/11/20 09/27/20 History iron) tablet calcium carbonate-vitamin D3 1 tab PO QAM 08/21/20 09/27/20 History duloxetine [Cymbalta] 120 mg PO QAM 08/21/20 09/27/20 History multivitamin 2 tab PO QAM 08/21/20 09/27/20 History trazodone 50 mg PO HS PRN 08/21/20 09/27/20 History furosemide 20 mg PO DAILY PRN #10 tab 08/31/20 09/27/20 Rx Combivent Respimat 1 puff INHALATION QID PRN 09/05/20 09/27/20 History cyclobenzaprine 5 mg PO TID PRN 09/05/20 09/27/20 History docusate sodium 100 mg PO BID 09/05/20 09/27/20 History heparin (porcine) 5,000 unit SUBCUT Q12H 09/05/20 09/27/20 History loratadine [Claritin] 10 mg PO QAM 09/05/20 09/27/20 History melatonin 6 mg PO HS PRN 09/05/20 09/27/20 History pantoprazole 40 mg PO DAILYBB 09/05/20 09/27/20 History potassium chloride 10 meq PO BID 09/05/20 09/27/20 History gabapentin 300 mg PO BID 30 Days #60 cap 09/19/20 09/27/20 Rx hydromorphone [Dilaudid] 2 mg PO Q6H PRN 14 Days #60 tab 09/19/20 09/27/20 Rx acetaminophen [Tylenol] 650 mg PO Q6H PRN 09/27/20 09/27/20 History ascorbic acid (vitamin C) [Vitamin 500 mg PO BID 09/27/20 09/27/20 History C] famotidine 20 mg PO QAM 09/27/20 09/27/20 History lidocaine 3 patch TRANSDERMAL QAM 09/27/20 09/27/20 History naloxone 4 mg INTRANASAL DIRECTED PRN 09/27/20 09/27/20 History polyethylene glycol 3350 [Miralax] 17 g PO DAILY PRN 09/27/20 09/27/20 History sennosides-docusate sodium 1 tab PO QAM PRN 09/27/20 09/27/20 History [Senokot-S] vitamin B complex 1 tab PO QAM 09/27/20 09/27/20 History zinc sulfate 220 mg PO QAM 09/27/20 09/27/20 History Past Med/Surg History Medical History Acute hypoxemic respiratory failure Acute leg pain Anemia Anxiety Atherosclerosis of aorta Bacteremia due to Gram-negative bacteria Chronic pain syndrome Degenerative disc disease Depression DVT (deep venous thrombosis) possibly, treated inpatient directly following knee replacement. no problems since. Emphysema of lung Noted on chest CTs but not reported by patient. Follicular lymphoma currently monitoring and treating with Dr Moseley (oncology). To have port placed for chemo by Dr Chow 09/17/20 Gastroesophageal reflux disease Hyperlipidemia Hypertension Leukocytosis Lumbar canal stenosis Mild aortic regurgitation Moderate aortic stenosis Moderate mitral regurgitation Myofascial pain Osteoarthritis Peripheral edema Currently, L >R, 2/2 lymphoma. Wearing compression socks. Persistent insomnia Piriformis syndrome Post laminectomy syndrome Presence of intrathecal pump Urinary tract infection currently finishing abx (08/21/20). not recurrent infections typically Surgical History H/O cataract removal with insertion of prosthetic lens bilateral History of cholecystectomy 1977 History of colonoscopy History of knee replacement procedure of right knee 2002 History of laminectomy lumbar ~2013 Previous back surgery 2006,2007,2013 S/P hip replacement bilateral 2015, 2016 Status post laminectomy with spinal fusion lumbar, 2007 & 2008 Family History Father Abdominal aneurysm Colorectal cancer Grandmother (Paternal) Cancer Other No family history of adverse response to anesthesia Denies family history of Ovarian cancer Prostate cancer Myocardial infarction Breast cancer Social History Smoking Status: Former smoker Second Hand Exposure: No; Hx Alcohol Use: No (\) Hx Substance Use: No Preferred Language: Turkmen Communication Ability: Effective Visual Impairment: Limited Hearing Ability: Normal Stores Naval Required: No Beliefs That Will Affect Care: None marital status: / Current Living Situation: Rehab current occupational status: retired Other Information That Helps Us Care for You: No Feels Safe at Home: Yes Safety Concerns: Feels Safe At This Time Childhood Exposure to Second-Hand Smoke: Yes caffeine: Yes Dental Care, Regularly: No Physical Activity Frequency: Does not Exercise Seatbelt Use: always Sunscreen Use: Yes Assistive Devices: Glasses Review of Systems Review of Systems: The patient denies chest pain, palpitations, cough, lower extremity swelling, sore throat, fevers, chills, sweats, weight change, fatigue, nausea, vomiting, diarrhea , constipation, abdominal pain, pelvic pain, blood in urine or stool, dysuria, urinary frequency or urgency, lightheadedness, dizziness, headache, loss of consciousness, rash, abnormal bruising or bleeding, imbalance, focal or generalized weakness, numbness or tingling in arms or legs, generalized arthralgias or myalgias, back or neck pain, or night sweats. The review of systems is otherwise negative other than for that already noted above, and at least 10 systems have been reviewed. Physical Exam Physical Exam: The patient is awake, alert and oriented 3, well developed and well nourished, normocephalic and atraumatic, lying in bed and in no acute distress. HEENT--PERRL, EOMI, mucous membranes and oropharynx normal. Neck--supple. No JVD. No bruits. Thyroid normal, trachea midline, no adenopathy. Heart--normal S1 and S2. No murmurs, rubs or gallops. Lungs--clear bilaterally, no respiratory distress, no accessory muscle use. Abdomen--normal bowel sounds and soft. Nontender. Nondistended. Extremities--no cyanosis or clubbing. No edema. There are good distal pulses b/l. Dermatologic--normal skin turgor, normal color, no abnormal lymph nodes, no rash. Neurologic--cranial nerves II through XII grossly intact. Rheumatologic--normal range of motion. Psychiatric--normal affect. Results & Data Results & Data ([facility]) Vital Signs (Past 12 Hours) Vital Signs Temp Pulse Pulse Resp BP BP Pulse Ox 09/27/20 19:34 99.0 F 100 H 20 106/73 90 09/27/20 17:48 100 H 22 103/61 94 09/27/20 16:51 72 22 109/65 93 09/27/20 15:00 111 H 15 104/63 94 09/27/20 14:30 99 H 18 101/60 95 09/27/20 13:41 96 09/27/20 12:49 100.2 F H 107 H 20 96/57 L 93 Laboratory Results Laboratory Results WBC 8.28 K/uL (4.8-10.8) 09/27/20 13:33 RBC 2.92 M/uL (4.2-5.4) L 09/27/20 13:33 Hgb 7.7 g/dL (12.0-16.0) L 09/27/20 13:33 Hct 24.5 % (37-47) L 09/27/20 13:33 MCV 83.9 fL (80-100) 09/27/20 13:33 MCH 26.4 pg (25-34) 09/27/20 13:33 MCHC 31.4 g/dL (32-36) L 09/27/20 13:33 RDW Std Deviation 46.4 fL (36.4-46.3) H 09/27/20 13:33 RDW Coeff of Inge 15.0 % (11.5-14.5) H 09/27/20 13:33 Plt Count 381 K/uL (130-400) 09/27/20 13:33 MPV 8.7 fL (7.4-10.4) 09/27/20 13:33 Immature Gran % (Auto) 0.2 % 09/27/20 13:33 Neut % (Auto) 92.0 % 09/27/20 13:33 Lymph % (Auto) 4.0 % 09/27/20 13:33 Parker % (Auto) 3.6 % 09/27/20 13:33 Eos % (Auto) 0.1 % 09/27/20 13:33 Baso % (Auto) 0.1 % 09/27/20 13:33 Neut # (Auto) 7.61 K/uL (1.4-6.5) H 09/27/20 13:33 Lymph # (Auto) 0.33 K/uL (1.2-3.4) L 09/27/20 13:33 Parker # (Auto) 0.30 K/uL (0.11-0.59) 09/27/20 13:33 Eos # (Auto) 0.01 K/uL (0-0.5) 09/27/20 13:33 Baso # (Auto) 0.01 K/uL (0-0.2) 09/27/20 13:33 Immature Gran # (Auto) 0.02 K/uL (0.00-0.02) 09/27/20 13:33 ESR 48 mm/hr (0-21) H 09/27/20 13:33 PT 11.6 Seconds (9.0-12.0) 09/27/20 13:33 INR 1.1 (0.9-1.1) 09/27/20 13:33 APTT 40.2 Seconds (21.0-31.0) H 09/27/20 13:33 PTT Ratio 1.4 09/27/20 13:33 D-Dimer 2010 ug/L FEU (0-500) H* 09/27/20 13:33 Sodium 134 mmol/L (136-145) L 09/27/20 13:33 Potassium 4.5 mmol/L (3.5-5.1) 09/27/20 13:33 Chloride 104 mmol/L (98-107) 09/27/20 13:33 Carbon Dioxide 25 mmol/L (21-32) 09/27/20 13:33 Anion Gap 5.0 (3-11) 09/27/20 13:33 BUN 9 mg/dl (7-18) 09/27/20 13:33 Creatinine 0.69 mg/dl (0.6-1.2) 09/27/20 13:33 Est Cr Clr Drug Dosing 76.6 ml/min 09/27/20 13:33 Est GFR ( Amer) 99.4 09/27/20 13:33 Est GFR (Non-Af Amer) 85.8 09/27/20 13:33 BUN/Creatinine Ratio 13.3 (10-20) 09/27/20 13:33 Glucose 88 mg/dl (70-99) 09/27/20 13:33 Lactate 0.6 mmol/L (0.4-2.0) 09/27/20 13:33 Calcium 8.5 mg/dl (8.5-10.1) 09/27/20 13:33 Magnesium 1.9 mg/dl (1.8-2.4) 09/27/20 13:33 Ferritin 479.0 ng/ml (8-388) H 09/27/20 13:33 Total Bilirubin 0.4 mg/dl (0.2-1) 09/27/20 13:33 AST 24 U/L (15-37) 09/27/20 13:33 ALT 18 U/L (12-78) 09/27/20 13:33 Alkaline Phosphatase 143 U/L (45-117) H 09/27/20 13:33 Lactate Dehydrogenase 213 U/L (84-246) 09/27/20 13:33 Troponin I < 0.015 ng/ml (0-0.045) 09/27/20 13:33 C-Reactive Protein 18.60 mg/dl (0-0.29) H 09/27/20 13:33 Total Protein 6.1 gm/dl (6.4-8.2) L 09/27/20 13:33 Albumin 2.1 gm/dl (3.4-5.0) L 09/27/20 13:33 Globulin 4.0 gm/dl (2.5-4.0) 09/27/20 13:33 Albumin/Globulin Ratio 0.5 (0.9-2) L 09/27/20 13:33 Procalcitonin 0.51 ng/ml (0-0.5) H 09/27/20 13:33 COVID-19 Eval Order [facility]FluRsv at [facility] 09/27/20 13:20 COVID-19 PCR POSITIVE (Negative) A* 09/27/20 13:20 Influenza Type A (PCR) Negative (Neg) 09/27/20 13:20 Influenza Type B (PCR) Negative (Neg) 09/27/20 13:20 RSV (RT-PCR) Negative (Neg) 09/27/20 13:20 Blood Type B Positive 09/27/20 13:44 Antibody Screen NEGATIVE 09/27/20 13:44 Crossmatch See Detail 09/27/20 13:44 Diagnostic Findings [facility], [phone] XRay Report Patient: JAYLEEN BARRERA AAdmit Date: 09/27/20MR#: [id number]Acct ID:[id number]: [facility]ALTHBirth Date: [address] [place] [address] Zip: [place], [place] [address]Gil: 75Location: EDSex: FRoom/Bed:Att Phy:Diagnosis: TACHYCARDIA, FEVERPri [facility]y: [facility] Date: 09/27/20Fam Phy:Interpreting Phy: Danyel Means MDAdmit Phy: Ordering Phy: Caio Layton MD cc: ~ SINGLE VIEW CHEST CLINICAL HISTORY: Sepsis. FINDINGS: An AP, portable, upright chest radiograph is compared to chest x-ray and chest CT dated 09/25/2020. The cardiomediastinal silhouette is unremarkable noting atherosclerotic calcification of the thoracic aorta. Emphysema and chronic interstitial thickening is similar to previous. There is chronic elevation of right hemidiaphragm. There are bilateral airspace opacities, increasing in the right midlung and at the left lung base as compared to previous. No large pleural effusion or pneumothorax is seen. The skeletal structures are osteopenic. The bony thorax is grossly intact. Degenerative change is noted in the shoulders and thoracic spine. IMPRESSION: 1. Emphysema. 2. Bilateral airspace opacities have modestly increased as compared to 09/25/2020. ACT 112: Negative or not required by law. Electronically signed by: Danyel Means M.D. 09/27/2020 1:52 PM Dictated: 09/27/20 1351Transcribed: 09/27/20 1351 Code Status & VTE Plan Code Status Full code VTE Prophylaxis Plan VTE Prophylaxis will be ordered: Yes PG Care Time/CCT Total # of Minutes Spent Total Time Spent with Patient: Total time spent is greater than 50% in coordination of care (as documented) at patient's floor/unit and/or counseling patient: Coding Level of Care Code 82230 Initial Inpt Care Lvl 3 Diagnoses Pneumonia due to 2019 novel coronavirus U07.1; J12.89 Signs and symptoms of anemia D64.9 (HFpEF) heart failure with preserved ejection fraction I50.31 Heart failure chronicity: acute Hypertension I10 Hypertension type: essential hypertension Gastroesophageal reflux disease K21.9 (1) (HFpEF) heart failure with preserved ejection fraction Heart failure chronicity: acute Qualified Code(s): I50.31 - Acute diastolic (congestive) heart failure (2) Hypertension Hypertension type: essential hypertension Qualified Code(s): I10 - Essential (primary) hypertension
[2020-09-27] MEDS: HEPARIN SOD (PORCINE) 5,000 UNITS/ML VIAL SQ SCH (20:47)
[2020-09-27] MEDS: DOCUSATE SODIUM 100 MG CAP PO SCH (20:48)
[2020-09-27] MEDS: POTASSIUM CHLORIDE 10 MEQ TABCR PO SCH (20:48)
[2020-09-27] MEDS: ASCORBIC ACID 500 MG TAB PO SCH (20:49)
[2020-09-27] MEDS: GABAPENTIN 300 MG CAP PO SCH (20:49)
[2020-09-28] MEDS: PIPERACILLIN/TAZOBACTAM 4.5 GM in DEXTROSE 5% 100 ML IV SCH ×3 (02:42→18:10)
[2020-09-28] MEDS: dexAMETHasone 6 MG in SYRINGE 0 ML IV SCH ×2 (03:47→16:20)
[2020-09-28] MEDS: LIDOCAINE 5% 1 PATCH TD SCH (05:18)
--- NOTE | 2020-09-28 05:46 | Electrocardiogram Report ---
Test Reason : Blood Pressure : / mmHG Vent. Rate : 103 BPM Atrial Rate : 103 BPM P-R Int : 144 ms QRS Dur : 084 ms QT Int : 344 ms P-R-T Axes : 052 -13 066 degrees QTc Int : 450 ms Poor data quality, interpretation may be adversely affected Sinus tachycardia Otherwise normal ECG When compared with ECG of 25-SEP-2020 12:17, No significant change was found Confirmed by Neil Tesfaye ([id number]) on 09/28/2020 5:46:03 AM Referred By: Confirmed By:Neil Tesfaye
[2020-09-28] MEDS ORDERED: PANTOprazole 40 MG TAB PO SCH (06:30)
[2020-09-28 06:38] LABS: Hematocrit (blood only) 29.7 % (37-47); Hemoglobin 9.4 g/dL (12.0-16.0); Mean Corpuscular Hemoglobin 26.9 pg (25-34); Mean Corpuscular Hgb Conc 31.6 g/dL (32-36); Mean Corpuscular Volume 84.9 fL (80-100); Platelet Count 461 K/uL (130-400); White Blood Count 6.37 K/uL (4.8-10.8)
[2020-09-28 06:40] LABS: INR 1.1 (0.9-1.1); Partial Thromboplastin Ratio 1.2; Partial Thromboplastin Time 32.5 Seconds (21.0-31.0); Prothrombin Time 11.4 Seconds (9.0-12.0)
[2020-09-28 06:49] LABS: Albumin Level 2.2 gm/dl (3.4-5.0); BUN Creatinine Ratio 12.5 (10-20); Calcium 8.9 mg/dl (8.5-10.1); Creatinine Clr Calc Pharmacy 72.2 ml/min; Est GFR (Non-African American) 81.1; Magnesium 1.8 mg/dl (1.8-2.4); Potassium 4.4 mmol/L (3.5-5.1)
[2020-09-28 06:50] LABS: Basophils # (auto) 0.01 K/uL (0-0.2); Basophils % (auto) 0.2 %; Eosinophils # (auto) 0.01 K/uL (0-0.5); Eosinophils % (auto) 0.2 %; Immature Granulocytes # (auto) 0.03 K/uL (0.00-0.02); Immature Granulocytes % (auto) 0.5 %; Lymphocytes # (auto) 0.33 K/uL (1.2-3.4); Lymphocytes % (auto) 5.2 %; Monocytes # (auto) 0.07 K/uL (0.11-0.59); Monocytes % (auto) 1.1 %; Neutrophils # (auto) 5.92 K/uL (1.4-6.5); Neutrophils % (auto) 92.8 %; RBC Morphology Unremarkable
[2020-09-28 06:52] LABS: Albumin Globulin Ratio 0.5 (0.9-2); Bilirubin,Total 0.5 mg/dl (0.2-1); Globulin 4.3 gm/dl (2.5-4.0); Total Protein 6.5 gm/dl (6.4-8.2)
--- NOTE | 2020-09-28 08:19 | Hospitalist Progress Note ---
Date of Service September 28, 2020 Assessment & Plan (1) Pneumonia due to 2019 novel coronavirus: Chest x-ray with worsening infiltrates [id number] pneumonia Admit to monitored bed. Decadron 6 mg IV daily Convalescent plasma Remdesivir protocol initiated due to hypoxia to 94% Zosyn 4.5 g IV every 8 hours Ventolin HFA 2 puffs 4 times daily as needed (2) Signs and symptoms of anemia: Type and screen intake hemoglobin 7.7 upon admission. Patient super augmented after 1 unit of blood 1 to 9.4 g We will transfuse 1 unit PRBCs due to symptomatology and accompanying Covid infection Unclear etiology of anemia we will check iron TIBC TSH reticulocyte panel (3) (HFpEF) heart failure with preserved ejection fraction: Continue current regimen without changes (4) Hypertension: (5) Gastroesophageal reflux disease: Continue famotidine Admission and Anticipated Discharge Date Admission Date: September 27, 2020 Subjective Patient is mildly short of breath she feels cold she has no other complaints or problems Review of Systems Review of Systems: Mild distress and fatigue no headache, blurry or double vision no speech or swallowing issues no chest pain, pressure or palpitations Is a shortness of breath and nonproductive coughing no abdominal pain, nausea or vomiting, no complaints of diarrhea or constipation no dysuria, hematuria or frequency no focal joint pain or swelling no back pain, CVA tenderness or radicular pain no bruising, bleeding or rashes no focal signs of weakness or numbness or altered sensation no complaints of anxiety or depression. Physical Exam Physical Exam: The patient appeared well nourished and normally developed. Vital signs as documented. Head exam is normocephalic atraumatic no scleral icterus Neck is without JVD, thyromegaly, or carotid bruits. Lungs are bilateral rales worse at the bases clearing with the apex Cardiac exam, Rhythm is regular.. Systolic ejection murmur Abdominal exam reveals normal bowel sounds, soft non tender, no masses Extremities are nonedematous and both pedal pulses are present Neurologic exam is alert and oriented, no focal loss of strength or sensation Skin is without bruises or rashes Psychologically is without concerns for anxiety or depression. Results & Data Results & Data ([facility]) Vital Signs (Past 12 Hours) Vital Signs Temp Pulse Pulse Resp BP BP BP 09/28/20 07:47 84 09/28/20 07:20 99.3 F 89 16 111/94 09/28/20 04:58 99.9 F H 100 H 20 97/75 L 09/27/20 23:59 90 09/27/20 23:19 99.7 F H 87 18 108/65 09/27/20 22:30 99.1 F 91 H 18 110/71 09/27/20 21:54 99.3 F 90 18 107/69 09/27/20 21:17 99.3 F 93 H 20 107/71 09/27/20 20:47 99.7 F H 99 H 20 101/71 09/27/20 20:32 99.3 F 90 20 100/70 09/27/20 20:26 99.7 F H 94 H 20 96/64 L Pulse Ox 09/28/20 07:47 09/28/20 07:20 90 09/28/20 04:58 92 09/27/20 23:59 09/27/20 23:19 92 09/27/20 22:30 96 09/27/20 21:54 96 09/27/20 21:17 96 09/27/20 20:47 96 09/27/20 20:32 96 09/27/20 20:26 90 PG Care Time/CCT Total # of Minutes Spent Total Time Spent with Patient: Total time spent is greater than 50% in coordination of care (as documented) at patient's floor/unit and/or counseling patient: Coding Level of Care Code 17273 Subseq Hosp Care Lvl 2 Diagnoses Pneumonia due to 2019 novel coronavirus U07.1; J12.89 Signs and symptoms of anemia D64.9 (HFpEF) heart failure with preserved ejection fraction I50.31 Heart failure chronicity: acute Hypertension I10 Hypertension type: essential hypertension Gastroesophageal reflux disease K21.9 (1) (HFpEF) heart failure with preserved ejection fraction Heart failure chronicity: acute Qualified Code(s): I50.31 - Acute diastolic (congestive) heart failure (2) Hypertension Hypertension type: essential hypertension Qualified Code(s): I10 - Essential (primary) hypertension
[2020-09-28] MEDS: DOCUSATE SODIUM 100 MG CAP PO SCH ×2 (08:22→19:57)
[2020-09-28] MEDS: DULoxetine HCL 60 MG CAP PO SCH (08:22)
[2020-09-28] MEDS: LORATADINE 10 MG TAB PO SCH (08:22)
[2020-09-28] MEDS: CALCIUM 600MG + VIT D 400 IU TAB PO SCH (08:23)
[2020-09-28] MEDS: FAMOTIDINE 20 MG TAB PO SCH (08:23)
[2020-09-28] MEDS: MULTIVITAMIN TAB PO SCH (08:23)
[2020-09-28] MEDS: ZINC SULFATE 220 MG CAPSULE PO SCH (08:23)
[2020-09-28] MEDS: CHOLECALCIFEROL 1,000 UNITS 25 MCG TAB PO SCH (08:23)
[2020-09-28] MEDS: GABAPENTIN 300 MG CAP PO SCH ×2 (08:24→21:43)
[2020-09-28] MEDS: VITAMIN B COMPLEX TAB PO SCH (08:24)
[2020-09-28] MEDS: FERROUS SULFATE 325 MG TAB PO SCH (08:24)
[2020-09-28] MEDS: ASCORBIC ACID 500 MG TAB PO SCH ×2 (08:24→19:57)
[2020-09-28] MEDS: ASPIRIN 81 MG ECTAB PO SCH (08:24)
[2020-09-28] MEDS: POTASSIUM CHLORIDE 10 MEQ TABCR PO SCH ×2 (08:25→19:58)
[2020-09-28] MEDS: HEPARIN SOD (PORCINE) 5,000 UNITS/ML VIAL SQ SCH ×2 (08:25→19:57)
[2020-09-28] MEDS ORDERED: REMDESIVIR 200 MG in SODIUM CHLORIDE 0.9% 210 ML IV ONE (08:45)
[2020-09-28] MEDS ORDERED: NON-FORMULARY MEDICATION (Krill Oil 500 mg capsule) PO SCH (09:00)
[2020-09-28] MEDS: SODIUM CHLORIDE 0.9% 10ML FLUSH IV SCH (11:25)
[2020-09-28] MEDS: PANTOprazole 40 MG TAB PO SCH (19:56)
[2020-09-28] MEDS: ACETAMINOPHEN 325 MG TAB PO PRN (19:57)
[2020-09-28] MEDS: CYCLOBENZAPRINE HCL 5 MG TAB PO PRN (21:43)
[2020-09-28] MEDS: traZODone HCL 50 MG TAB PO PRN (21:44)
[2020-09-29] MEDS: PIPERACILLIN/TAZOBACTAM 4.5 GM in DEXTROSE 5% 100 ML IV SCH ×3 (01:36→17:48)
[2020-09-29] MEDS: dexAMETHasone 6 MG in SYRINGE 0 ML IV SCH ×2 (04:16→16:18)
[2020-09-29] MEDS: LIDOCAINE 5% 1 PATCH TD SCH (06:12)
[2020-09-29 06:54] LABS: Hematocrit (blood only) 32.2 % (37-47); Hemoglobin 10.4 g/dL (12.0-16.0); Immature Granulocytes # (auto) 0.01 K/uL (0.00-0.02); Immature Granulocytes % (auto) 0.4 %; Lymphocytes # (auto) 0.48 K/uL (1.2-3.4); Lymphocytes % (auto) 18.4 %; Mean Corpuscular Hemoglobin 27.4 pg (25-34); Mean Corpuscular Hgb Conc 32.3 g/dL (32-36); Mean Corpuscular Volume 84.7 fL (80-100); Monocytes # (auto) 0.05 K/uL (0.11-0.59); Monocytes % (auto) 1.9 %; Neutrophils # (auto) 2.07 K/uL (1.4-6.5); Neutrophils % (auto) 79.3 %; Platelet Count 589 K/uL (130-400); RDW Coefficient of Variation 14.9 % (11.5-14.5); RDW Standard Deviation 46.8 fL (36.4-46.3); Reticulocyte % 0.5 % (0.5-2.0); Reticulocytes # 0.02 10^6/uL (0.02-0.10); White Blood Count 2.61 K/uL (4.8-10.8)
[2020-09-29 06:55] LABS: Appearance Urine Clear (Clear); Bilirubin Urine Negative (Negative); Blood Urine Negative (Negative); Color Urine Yellow; Glucose Urine UA Negative (Negative); Ketones Urine Negative (Negative); Leukocyte Esterase Urine 2+ (Negative); Nitrite Urine Negative (Negative); Protein Urine Negative (Negative); Urobilinogen Urine Negative (Negative); pH Urine 5.5 (4.5-7.5)
[2020-09-29 07:04] LABS: INR 1.1 (0.9-1.1); Partial Thromboplastin Time 28.3 Seconds (21.0-31.0); Prothrombin Time 11.5 Seconds (9.0-12.0)
[2020-09-29 07:25] LABS: RBC Urine Automated 0-4 /hpf (0-4)
[2020-09-29 07:25] LABS: Albumin Level 2.4 gm/dl (3.4-5.0); BUN Creatinine Ratio 18.1 (10-20); Calcium 9.7 mg/dl (8.5-10.1); Creatinine Clr Calc Pharmacy 57.4 ml/min; Est GFR (Non-African American) 62.2
[2020-09-29 07:26] LABS: Bacteria Urine Automated 1+ (Negative); Epithelial Cell Urine Auto 20-30 /lpf (0-5)
[2020-09-29] MEDS: HEPARIN SOD (PORCINE) 5,000 UNITS/ML VIAL SQ SCH (07:27)
[2020-09-29 07:34] LABS: Albumin Globulin Ratio 0.5 (0.9-2); Bilirubin,Total 0.4 mg/dl (0.2-1); Globulin 4.8 gm/dl (2.5-4.0); Thyroid Stimulating Hormone 4.91 uIu/ml (0.300-4.500); Total Protein 7.2 gm/dl (6.4-8.2)
[2020-09-29] MEDS: REMDESIVIR 100 MG in SODIUM CHLORIDE 0.9% 230 ML IV SCH (07:40)
[2020-09-29] MEDS: FERROUS SULFATE 325 MG TAB PO SCH (07:43)
[2020-09-29] MEDS: GABAPENTIN 300 MG CAP PO SCH ×2 (07:43→20:56)
[2020-09-29] MEDS: DOCUSATE SODIUM 100 MG CAP PO SCH ×2 (07:43→20:40)
[2020-09-29] MEDS: DULoxetine HCL 60 MG CAP PO SCH (07:43)
[2020-09-29] MEDS: POTASSIUM CHLORIDE 10 MEQ TABCR PO SCH ×2 (07:43→20:55)
[2020-09-29] MEDS: ASCORBIC ACID 500 MG TAB PO SCH ×2 (07:43→20:53)
[2020-09-29] MEDS: ZINC SULFATE 220 MG CAPSULE PO SCH (07:43)
[2020-09-29] MEDS: PANTOprazole 40 MG TAB PO SCH ×2 (07:43→20:53)
[2020-09-29] MEDS: FAMOTIDINE 20 MG TAB PO SCH (07:43)
[2020-09-29] MEDS: VITAMIN B COMPLEX TAB PO SCH (07:43)
[2020-09-29] MEDS: CHOLECALCIFEROL 1,000 UNITS 25 MCG TAB PO SCH (07:44)
[2020-09-29] MEDS: MULTIVITAMIN TAB PO SCH (07:44)
[2020-09-29] MEDS: CALCIUM 600MG + VIT D 400 IU TAB PO SCH (07:44)
[2020-09-29] MEDS: LORATADINE 10 MG TAB PO SCH (07:44)
[2020-09-29] MEDS: ASPIRIN 81 MG ECTAB PO SCH (07:44)
[2020-09-29 08:24] LABS: RBC Morphology Unremarkable
[2020-09-29] MEDS ORDERED: FERROUS SULFATE 325 MG TAB PO SCH (09:00)
[2020-09-29] MEDS: SODIUM CHLORIDE 0.9% 10ML FLUSH IV SCH (09:53)
[2020-09-29] MEDS: SENNA 8.6 MG TAB PO SCH (09:53)
--- NOTE | 2020-09-29 16:55 | Hospitalist Progress Note ---
Date of Service September 29, 2020 Assessment & Plan (1) Pneumonia due to 2019 novel coronavirus: Chest x-ray with worsening infiltrates [id number] pneumonia Admit to monitored bed. Decadron 6 mg IV daily Convalescent plasma Remdesivir protocol initiated due to hypoxia to 94%, LD 10/02 Zosyn 4.5 g IV every 8 hours compelte 5 days Ventolin HFA 2 puffs 4 times daily as needed (2) Signs and symptoms of anemia: Type and screen intake hemoglobin 7.7 upon admission. Patient super augmented after 1 unit of blood 1 to 9.4 g We will transfuse 1 unit PRBCs due to symptomatology and accompanying Covid infection Unclear etiology of anemia iron low but normal iron, tsh slightly up will check T4 but is slighlty low, doubut is cause, most likely transient gi blood loss is on ppi bid (3) (HFpEF) heart failure with preserved ejection fraction: Continue current regimen without changes (4) Hypertension: (5) Gastroesophageal reflux disease: Continue protoinix bid Admission and Anticipated Discharge Date Admission Date: September 27, 2020 Subjective Patient is mildly short of breath she feels cold she has no other complaints or problems Review of Systems Review of Systems: Mild distress and fatigue no headache, blurry or double vision no speech or swallowing issues no chest pain, pressure or palpitations Is a shortness of breath and nonproductive coughing no abdominal pain, nausea or vomiting, no complaints of diarrhea or constipation no dysuria, hematuria or frequency no focal joint pain or swelling no back pain, CVA tenderness or radicular pain no bruising, bleeding or rashes no focal signs of weakness or numbness or altered sensation no complaints of anxiety or depression. Physical Exam Physical Exam: The patient appeared well nourished and normally developed. Vital signs as documented. Head exam is normocephalic atraumatic no scleral icterus Neck is without JVD, thyromegaly, or carotid bruits. Lungs are bilateral rales worse at the bases clearing with the apex Cardiac exam, Rhythm is regular.. Systolic ejection murmur Abdominal exam reveals normal bowel sounds, soft non tender, no masses Extremities are nonedematous and both pedal pulses are present Neurologic exam is alert and oriented, no focal loss of strength or sensation Skin is without bruises or rashes Psychologically is without concerns for anxiety or depression. Results & Data Results & Data ([place]) Vital Signs (Past 12 Hours) Vital Signs Temp Pulse Resp BP BP Pulse Ox 09/29/20 16:05 97.7 F 67 18 115/68 92 09/29/20 11:25 97.5 F L 76 18 120/79 91 09/29/20 08:06 97.7 F 71 18 109/66 94 PG Care Time/CCT Total # of Minutes Spent Total Time Spent with Patient: Total time spent is greater than 50% in coordination of care (as documented) at patient's floor/unit and/or counseling patient: Coding Level of Care Code 06743 Subseq Hosp Care Lvl 2 Diagnoses Pneumonia due to 2019 novel coronavirus U07.1; J12.89 Signs and symptoms of anemia D64.9 (HFpEF) heart failure with preserved ejection fraction I50.31 Heart failure chronicity: acute Hypertension I10 Hypertension type: essential hypertension Gastroesophageal reflux disease K21.9 (1) (HFpEF) heart failure with preserved ejection fraction Heart failure chronicity: acute Qualified Code(s): I50.31 - Acute diastolic (congestive) heart failure (2) Hypertension Hypertension type: essential hypertension Qualified Code(s): I10 - Essential (primary) hypertension
[2020-09-29] MEDS: HEPARIN SOD 5,000 UNIT/0.5 ML VIAL SQ SCH (20:39)
[2020-09-30] MEDS: PIPERACILLIN/TAZOBACTAM 4.5 GM in DEXTROSE 5% 100 ML IV SCH ×3 (01:15→18:08)
[2020-09-30] MEDS: dexAMETHasone 6 MG in SYRINGE 0 ML IV SCH ×2 (04:10→15:39)
[2020-09-30] MEDS ORDERED: Nursing to Pharmacy Communication SCH (05:45)
[2020-09-30] MEDS: ACETAMINOPHEN 325 MG TAB PO PRN ×2 (06:20→15:37)
[2020-09-30] MEDS: LIDOCAINE 5% 1 PATCH TD SCH ×2 (06:21→10:25)
[2020-09-30 07:04] LABS: INR 1.1 (0.9-1.1); Partial Thromboplastin Time 28.7 Seconds (21.0-31.0); Prothrombin Time 11.9 Seconds (9.0-12.0)
[2020-09-30 07:17] LABS: Hematocrit (blood only) 29.1 % (37-47); Hemoglobin 9.3 g/dL (12.0-16.0); Immature Granulocytes # (auto) 0.02 K/uL (0.00-0.02); Immature Granulocytes % (auto) 0.3 %; Lymphocytes % (auto) 9.5 %; Mean Corpuscular Hemoglobin 27.3 pg (25-34); Mean Corpuscular Volume 85.3 fL (80-100); Monocytes # (auto) 0.27 K/uL (0.11-0.59); Monocytes % (auto) 4.3 %; Neutrophils # (auto) 5.45 K/uL (1.4-6.5); Neutrophils % (auto) 85.9 %; Platelet Count 628 K/uL (130-400); RDW Coefficient of Variation 15.4 % (11.5-14.5); RDW Standard Deviation 47.9 fL (36.4-46.3); Red Blood Count 3.41 M/uL (4.2-5.4); White Blood Count 6.34 K/uL (4.8-10.8)
[2020-09-30 07:33] LABS: Albumin Level 2.2 gm/dl (3.4-5.0); BUN Creatinine Ratio 29.4 (10-20); Calcium 9.4 mg/dl (8.5-10.1); Creatinine Clr Calc Pharmacy 72.6 ml/min; Est GFR (African American) 95.6; Est GFR (Non-African American) 82.5; Magnesium 1.9 mg/dl (1.8-2.4); Potassium 4.5 mmol/L (3.5-5.1)
[2020-09-30 07:37] LABS: Albumin Globulin Ratio 0.6 (0.9-2); Bilirubin,Total 0.4 mg/dl (0.2-1); T4 Free Thyroxine 1.31 ng/dl (0.8-1.6); Total Protein 6.2 gm/dl (6.4-8.2)
[2020-09-30] MEDS: HEPARIN SOD 5,000 UNIT/0.5 ML VIAL SQ SCH ×2 (10:08→20:42)
[2020-09-30] MEDS: REMDESIVIR 100 MG in SODIUM CHLORIDE 0.9% 230 ML IV SCH (10:13)
[2020-09-30] MEDS: FERROUS SULFATE 325 MG TAB PO SCH (10:17)
[2020-09-30] MEDS: ZINC SULFATE 220 MG CAPSULE PO SCH (10:17)
[2020-09-30] MEDS: SENNA 8.6 MG TAB PO SCH ×2 (10:17→10:32)
[2020-09-30] MEDS: DOCUSATE SODIUM 100 MG CAP PO SCH ×3 (10:18→20:46)
[2020-09-30] MEDS: ASPIRIN 81 MG ECTAB PO SCH (10:18)
[2020-09-30] MEDS: CHOLECALCIFEROL 1,000 UNITS 25 MCG TAB PO SCH (10:19)
[2020-09-30] MEDS: ASCORBIC ACID 500 MG TAB PO SCH ×2 (10:19→20:43)
[2020-09-30] MEDS: MULTIVITAMIN TAB PO SCH (10:20)
[2020-09-30] MEDS: POTASSIUM CHLORIDE 10 MEQ TABCR PO SCH ×2 (10:20→20:43)
[2020-09-30] MEDS: GABAPENTIN 300 MG CAP PO SCH ×2 (10:20→20:43)
[2020-09-30] MEDS: CALCIUM 600MG + VIT D 400 IU TAB PO SCH (10:20)
[2020-09-30] MEDS: LORATADINE 10 MG TAB PO SCH (10:21)
[2020-09-30] MEDS: VITAMIN B COMPLEX TAB PO SCH (10:21)
[2020-09-30] MEDS: PANTOprazole 40 MG TAB PO SCH ×2 (10:21→20:43)
[2020-09-30] MEDS: DULoxetine HCL 60 MG CAP PO SCH (10:21)
[2020-09-30] MEDS: SODIUM CHLORIDE 0.9% 10ML FLUSH IV SCH (11:39)
--- NOTE | 2020-09-30 15:30 | Hospitalist Progress Note ---
Date of Service September 30, 2020 Assessment & Plan (1) Pneumonia due to 2019 novel coronavirus: Chest x-ray with worsening infiltrates [id number] pneumonia Decadron 6 mg IV daily LD 10/07 Convalescent plasma Remdesivir protocol initiated due to hypoxia < 94%, LD 10/02( this is her second go around as initial was also treated earlier, with her oxygen decompensation was given another round Zosyn 4.5 g IV every 8 hours compelte 5 days Ventolin HFA 2 puffs 4 times daily as needed (2) Signs and symptoms of anemia: Type and screen intake hemoglobin 7.7 upon admission. Patient super augmented after 1 unit of blood 1 to 9.4 g DID transfuse 1 unit PRBCs due to symptomatology and accompanying Covid infection Unclear etiology of anemia iron low but normal, tsh slightly up , normal T4 ppi bid (3) (HFpEF) heart failure with preserved ejection fraction: usual home regime is prn lasix (4) Hypertension: (5) Gastroesophageal reflux disease: Continue protoinix bid Admission and Anticipated Discharge Date Admission Date: September 27, 2020 Subjective Patient is mildly short of breath she feels cold she remains without other complaints or problems nusring notes episodes of sinus tach with exertion Review of Systems Review of Systems: Mild distress and fatigue no headache, blurry or double vision no speech or swallowing issues no chest pain, pressure or palpitations Is a shortness of breath and nonproductive coughing no abdominal pain, nausea or vomiting, no complaints of diarrhea or constipation no dysuria, hematuria or frequency no focal joint pain or swelling no back pain, CVA tenderness or radicular pain no bruising, bleeding or rashes no focal signs of weakness or numbness or altered sensation no complaints of anxiety or depression. Physical Exam Physical Exam: The patient appeared well nourished and normally developed. Vital signs as documented. Head exam is normocephalic atraumatic no scleral icterus Neck is without JVD, thyromegaly, or carotid bruits. Lungs are bilateral rales worse at the bases clearing with the apex Cardiac exam, Rhythm is regular.. Systolic ejection murmur Abdominal exam reveals normal bowel sounds, soft non tender, no masses Extremities are nonedematous and both pedal pulses are present Neurologic exam is alert and oriented, no focal loss of strength or sensation Skin is without bruises or rashes Psychologically is without concerns for anxiety or depression. Results & Data Results & Data ([facility]) Vital Signs (Past 12 Hours) Vital Signs Temp Pulse Pulse Pulse Pulse Resp BP 09/30/20 11:24 95 H 09/30/20 11:00 98.4 F 98 H 20 146/84 H 09/30/20 08:00 90 09/30/20 07:29 98.8 F 91 H 18 134/81 09/30/20 04:00 98.1 F 79 19 116/56 L Pulse Ox 09/30/20 11:24 92 09/30/20 11:00 85 L 09/30/20 08:00 09/30/20 07:29 90 09/30/20 04:00 93 PG Care Time/CCT Total # of Minutes Spent Total Time Spent with Patient: Total time spent is greater than 50% in coordination of care (as documented) at patient's floor/unit and/or counseling patient: Coding Level of Care Code 63545 Subseq Hosp Care Lvl 2 Diagnoses Pneumonia due to 2019 novel coronavirus U07.1; J12.89 Signs and symptoms of anemia D64.9 (HFpEF) heart failure with preserved ejection fraction I50.31 Heart failure chronicity: acute Hypertension I10 Hypertension type: essential hypertension Gastroesophageal reflux disease K21.9 (1) (HFpEF) heart failure with preserved ejection fraction Heart failure chronicity: acute Qualified Code(s): I50.31 - Acute diastolic (congestive) heart failure (2) Hypertension Hypertension type: essential hypertension Qualified Code(s): I10 - Essential (primary) hypertension
[2020-09-30] MEDS: CYCLOBENZAPRINE HCL 5 MG TAB PO PRN (20:57)
[2020-09-30] MEDS: traZODone HCL 50 MG TAB PO PRN (20:57)
[2020-09-30] MEDS: MELATONIN 3 MG TAB PO PRN (20:58)
[2020-10-01] MEDS: PIPERACILLIN/TAZOBACTAM 4.5 GM in DEXTROSE 5% 100 ML IV SCH ×3 (01:17→17:56)
[2020-10-01] MEDS: dexAMETHasone 6 MG in SYRINGE 0 ML IV SCH ×2 (04:08→15:40)
[2020-10-01 07:24] LABS: Hematocrit (blood only) 30.2 % (37-47); Hemoglobin 9.6 g/dL (12.0-16.0); Mean Corpuscular Hemoglobin 27.7 pg (25-34); Mean Corpuscular Hgb Conc 31.8 g/dL (32-36); Mean Platelet Volume 9.1 fL (7.4-10.4); Platelet Count 698 K/uL (130-400); RDW Coefficient of Variation 15.6 % (11.5-14.5); RDW Standard Deviation 49.9 fL (36.4-46.3); Red Blood Count 3.47 M/uL (4.2-5.4); White Blood Count 6.51 K/uL (4.8-10.8)
[2020-10-01] MEDS: ASPIRIN 81 MG ECTAB PO SCH (07:37)
[2020-10-01] MEDS: POTASSIUM CHLORIDE 10 MEQ TABCR PO SCH ×2 (07:38→20:54)
[2020-10-01] MEDS: LORATADINE 10 MG TAB PO SCH (07:38)
[2020-10-01] MEDS: GABAPENTIN 300 MG CAP PO SCH ×2 (07:38→20:54)
[2020-10-01] MEDS: FERROUS SULFATE 325 MG TAB PO SCH (07:39)
[2020-10-01] MEDS: PANTOprazole 40 MG TAB PO SCH ×2 (07:39→20:55)
[2020-10-01] MEDS: DULoxetine HCL 60 MG CAP PO SCH (07:39)
[2020-10-01] MEDS: ASCORBIC ACID 500 MG TAB PO SCH ×2 (07:39→20:54)
[2020-10-01] MEDS: MULTIVITAMIN TAB PO SCH (07:40)
[2020-10-01] MEDS: VITAMIN B COMPLEX TAB PO SCH (07:41)
[2020-10-01] MEDS: DOCUSATE SODIUM 100 MG CAP PO SCH ×2 (07:41→20:54)
[2020-10-01] MEDS: ZINC SULFATE 220 MG CAPSULE PO SCH (07:41)
[2020-10-01] MEDS: SENNA 8.6 MG TAB PO SCH (07:41)
[2020-10-01] MEDS: CHOLECALCIFEROL 1,000 UNITS 25 MCG TAB PO SCH (07:41)
[2020-10-01] MEDS: CALCIUM 600MG + VIT D 400 IU TAB PO SCH (07:42)
[2020-10-01] MEDS: HEPARIN SOD 5,000 UNIT/0.5 ML VIAL SQ SCH ×2 (07:43→20:56)
[2020-10-01] MEDS: REMDESIVIR 100 MG in SODIUM CHLORIDE 0.9% 230 ML IV SCH (07:47)
[2020-10-01 07:52] LABS: BUN Creatinine Ratio 28.8 (10-20); Calcium 9.1 mg/dl (8.5-10.1); Creatinine Clr Calc Pharmacy 75.2 ml/min; Est GFR (African American) 99.4; Est GFR (Non-African American) 85.8; Potassium 4.3 mmol/L (3.5-5.1)
[2020-10-01] MEDS: SODIUM CHLORIDE 0.9% 10ML FLUSH IV SCH (08:42)
[2020-10-01] MEDS: LIDOCAINE 5% 1 PATCH TD SCH (08:44)
--- NOTE | 2020-10-01 14:33 | Pain Management Consultation ---
Date of Consultation October 01, 2020 Assessment & Plan (1) Pneumonia due to COVID-19 virus: (2) Opioid dependence: Pump refill note Informed consent obtained and time out performed with second medication tool design engineer noted-Monse KEITH. Sterile prep drape with duraprep then betadine x3 swabs. With 22G mccann needle and template, the medication port was accessed in sterile fashion and 2ml of clear fluid was obtained and wasted. Using a filter and maintaining negative pressure, then pump was refilled with hydromorphone 4.5mg/ml, bupivacaine 22.5mg/ml, and baclofen 525mcg/ml without event. Negative aspiration of the syringe at end confirmed that pocket fill did not occur. Needle was removed, and skin was cleansed and band aid was placed. Patient tolerated procedure well without complication. Pump was reprogrammed with 19% decrease in dose. (3) Lumbar canal stenosis: (4) Post laminectomy syndrome: 1. CASTILLO (battery life) in pump is <=1mo, thus will plan to begin conversion to oral opiates. Pump decreased 19% today and orders written for percocet 5/325mg 1 po q4h prn pain. May need to adjust based off pain scales. 2. Intrathecal dose is no basal rate of hydromorphone 0.4567mg/day, bupivacaine 2.284mg/day, baclofen 63.29mcg/day simple continuous. Consider further weans over next few weeks pending patient condition. 3. Will follow peripherally, please call if any questions. Thank you History of Present Illness Attending Physician: Xochitl Hylton DO History of Present Illness 75yo female known to the pain service due to ongoing chronic utilization of intrathecal hydromorphone pump. Patient was tentatively planned for pump revision/replacement on 09/03/2020 was cancelled due to her re-admission with COVID symptoms. Her intrathecal dose was altered last admission to allow for extended refill period. She reports minimal pain at this time as she has had minimal activity over the last weeks. She admits to mild SOB, but improving. Pain control is currently adequate. Patient has no further constitutional complaints. Allergies Allergy/AdvReac Type Severity Reaction Status Date / Time latex Allergy Mild contact Verified 09/27/20 15:02 dermatitis Sulfa (Sulfonamide Allergy Mild RASH Verified 09/27/20 15:02 Antibiotics) nickel Allergy Unknown contact Verified 09/27/20 15:02 dermatitis Home Medications Medication Instructions Recorded Confirmed Type aspirin 81 mg tablet,delayed 81 mg PO QAM 07/27/18 09/27/20 History release cholecalciferol (vitamin D3) 50 2,000 units PO QAM 07/27/18 09/27/20 History mcg (2,000 unit) capsule krill oil 500 mg capsule 500 mg PO QAM cap 06/29/19 09/27/20 History fluticasone propionate 50 2 sprays INTNAS DAILY PRN #47.4 gm 07/25/19 09/27/20 Rx mcg/actuation nasal spray,suspension ferrous sulfate 325 mg (65 mg 325 mg PO QAM 07/11/20 09/27/20 History iron) tablet calcium carbonate-vitamin D3 1 tab PO QAM 08/21/20 09/27/20 History duloxetine [Cymbalta] 120 mg PO QAM 08/21/20 09/27/20 History multivitamin 2 tab PO QAM 08/21/20 09/27/20 History trazodone 50 mg PO HS PRN 08/21/20 09/27/20 History furosemide 20 mg PO DAILY PRN #10 tab 08/31/20 09/27/20 Rx Combivent Respimat 1 puff INHALATION QID PRN 09/05/20 09/27/20 History cyclobenzaprine 5 mg PO TID PRN 09/05/20 09/27/20 History docusate sodium 100 mg PO BID 09/05/20 09/27/20 History heparin (porcine) 5,000 unit SUBCUT Q12H 09/05/20 09/27/20 History loratadine [Claritin] 10 mg PO QAM 09/05/20 09/27/20 History melatonin 6 mg PO HS PRN 09/05/20 09/27/20 History pantoprazole 40 mg PO DAILYBB 09/05/20 09/27/20 History potassium chloride 10 meq PO BID 09/05/20 09/27/20 History gabapentin 300 mg PO BID 30 Days #60 cap 09/19/20 09/27/20 Rx hydromorphone [Dilaudid] 2 mg PO Q6H PRN 14 Days #60 tab 09/19/20 09/27/20 Rx acetaminophen [Tylenol] 650 mg PO Q6H PRN 09/27/20 09/27/20 History ascorbic acid (vitamin C) [Vitamin 500 mg PO BID 09/27/20 09/27/20 History C] famotidine 20 mg PO QAM 09/27/20 09/27/20 History lidocaine 3 patch TRANSDERMAL QAM 09/27/20 09/27/20 History naloxone 4 mg INTRANASAL DIRECTED PRN 09/27/20 09/27/20 History polyethylene glycol 3350 [Miralax] 17 g PO DAILY PRN 09/27/20 09/27/20 History sennosides-docusate sodium 1 tab PO QAM PRN 09/27/20 09/27/20 History [Senokot-S] vitamin B complex 1 tab PO QAM 09/27/20 09/27/20 History zinc sulfate 220 mg PO QAM 09/27/20 09/27/20 History Patient History Medical History Acute hypoxemic respiratory failure Acute leg pain Anemia Anxiety Atherosclerosis of aorta Bacteremia due to Gram-negative bacteria Chronic pain syndrome Degenerative disc disease Depression DVT (deep venous thrombosis) possibly, treated inpatient directly following knee replacement. no problems since. Emphysema of lung Noted on chest CTs but not reported by patient. Follicular lymphoma currently monitoring and treating with Dr Moseley (oncology). To have port placed for chemo by Dr Chow 09/17/20 Gastroesophageal reflux disease Hyperlipidemia Hypertension Leukocytosis Lumbar canal stenosis Mild aortic regurgitation Moderate aortic stenosis Moderate mitral regurgitation Myofascial pain Osteoarthritis Peripheral edema Currently, L >R, 2/2 lymphoma. Wearing compression socks. Persistent insomnia Piriformis syndrome Post laminectomy syndrome Presence of intrathecal pump Urinary tract infection currently finishing abx (08/21/20). not recurrent infections typically Surgical History H/O cataract removal with insertion of prosthetic lens bilateral History of cholecystectomy 1977 History of colonoscopy History of knee replacement procedure of right knee 2002 History of laminectomy lumbar ~2013 Previous back surgery 2006,2007,2013 S/P hip replacement bilateral 2015, 2016 Status post laminectomy with spinal fusion lumbar, 2007 & 2008 Family History Father Abdominal aneurysm Colorectal cancer Grandmother (Paternal) Cancer Other No family history of adverse response to anesthesia Denies family history of Ovarian cancer Prostate cancer Myocardial infarction Breast cancer Social History Smoking Status: Former smoker Second Hand Exposure: No; Hx Alcohol Use: No (\) Hx Substance Use: No Preferred Language: Samoan Communication Ability: Effective Visual Impairment: Limited Hearing Ability: Normal Coffee Machine Technician Required: No Beliefs That Will Affect Care: None marital status: / Current Living Situation: Rehab current occupational status: retired Other Information That Helps Us Care for You: No Feels Safe at Home: Yes Safety Concerns: Feels Safe At This Time Childhood Exposure to Second-Hand Smoke: Yes caffeine: Yes Dental Care, Regularly: No Physical Activity Frequency: Does not Exercise Seatbelt Use: always Sunscreen Use: Yes Assistive Devices: Walker Physical Exam Physical Exam: minimal exam performed today given COVID 19 status Pt is awake alert and oriented x3 in NAD Pump/cath sites WNL, pump is fairly mobile within pocket secondary to skin laxity Abd is soft/NT
--- NOTE | 2020-10-01 17:35 | Hospitalist Progress Note ---
Date of Service October 01, 2020 Assessment & Plan (1) Pneumonia due to 2019 novel coronavirus: Chest x-ray with worsening infiltrates [id number] pneumonia Decadron 6 mg IV daily LD 10/07 Convalescent plasma Remdesivir protocol initiated due to hypoxia < 94%, LD 10/02( this is her second go around as initial was also treated earlier, with her oxygen decompensation was given another round Zosyn 4.5 g IV every 8 hours compelte 5 days Ventolin HFA 2 puffs 4 times daily as needed Pt with trial off of NC at rest this afternoon and is doing well Sats are mid-90s Add probiotics for diarrhea given abx use (2) Signs and symptoms of anemia: Type and screen intake hemoglobin 7.7 upon admission. Patient super augmented after 1 unit of blood 1 to 9.4 g DID transfuse 1 unit PRBCs due to symptomatology and accompanying Covid infection Unclear etiology of anemia iron low but normal, tsh slightly up , normal T4 ppi bid (3) (HFpEF) heart failure with preserved ejection fraction: usual home regime is prn lasix (4) Hypertension: (5) Gastroesophageal reflux disease: Continue protoinix bid (6) Abnormal finding on urinalysis: UA on admission noted for 2+ leuk est, neg nitrites Urine cx is 40K strep species on prelim Zosyn should cover if UTI suspected (7) Chronic back pain: Pain pump in place Refilled on 10/[address] Erickson Admission and Anticipated Discharge Date Admission Date: September 27, 2020 Subjective Pt states she is feeling better overall today. She has some MEEHAN, but slight per both pt and nursing. No SOB at rest. She states she has had a few episodes of diarrhea the last few days. Tolerating PO. Pt denies fever, chest pain, abd pain, n/v/c/d, LE pain or swelling. Review of Systems Review of Systems: Pertinent positives and negatives reviewed in HPI--all others negative Physical Exam Constitutional: WD/WN, vitals as above Eyes: normal visual newman by confrontation and + anicteric sclerae Neck: normal visual inspection and trachea midline Respiratory: normal respiratory effort; no respiratory distress Ausculta tion: + crackles; no wheezes Cardiovascular: Rate/Rhythm: regular rate and regular rhythm Gastrointestinal (Abdomen): Inspection/Auscultation: abdomen not distended Percussion/Palpation: abdomen soft; abdomen nontender Musculoskeletal: Head/Neck/Chest: normocephalic and head atraumatic negative for edema, peripheral pulses intact Skin: no rashes, warm and dry Neurologic: awake; not confused Speech / Cognition: normal speech Psychiatric: A+Ox3, euthymic affect Results & Data Results & Data ([facility]) Vital Signs (Past 12 Hours) Vital Signs Temp Pulse Pulse Resp BP Pulse Ox Pulse Ox 10/01/20 15:41 94 10/01/20 15:17 37.0 C 100 H 96 H 18 132/93 92 10/01/20 11:44 36.5 C 88 19 141/84 H 92 10/01/20 07:30 73 10/01/20 07:03 36.7 C 97 H 18 157/90 H 93 PG Care Time/CCT Total # of Minutes Spent Total Time Spent with Patient: Total time spent is greater than 50% in coordination of care (as documented) at patient's floor/unit and/or counseling patient: Coding Level of Care Code 62019 Subseq Hosp Care Lvl 3 Diagnoses Pneumonia due to 2019 novel coronavirus U07.1; J12.89 Signs and symptoms of anemia D64.9 (HFpEF) heart failure with preserved ejection fraction I50.31 Heart failure chronicity: acute Hypertension I10 Hypertension type: essential hypertension Gastroesophageal reflux disease K21.9 Abnormal finding on urinalysis R82.90 Chronic back pain M54.9; G89.29 (1) (HFpEF) heart failure with preserved ejection fraction Heart failure chronicity: acute Qualified Code(s): I50.31 - Acute diastolic (congestive) heart failure (2) Hypertension Hypertension type: essential hypertension Qualified Code(s): I10 - Essential (primary) hypertension
[2020-10-01] MEDS: MELATONIN 3 MG TAB PO PRN (21:01)
[2020-10-01] MEDS: traZODone HCL 50 MG TAB PO PRN (21:02)
[2020-10-01] MEDS: CYCLOBENZAPRINE HCL 5 MG TAB PO PRN (22:05)
[2020-10-02] MEDS: PIPERACILLIN/TAZOBACTAM 4.5 GM in DEXTROSE 5% 100 ML IV SCH ×3 (02:56→17:47)
[2020-10-02] MEDS: dexAMETHasone 6 MG in SYRINGE 0 ML IV SCH ×2 (02:59→17:43)
[2020-10-02] MEDS: REMDESIVIR 100 MG in SODIUM CHLORIDE 0.9% 230 ML IV SCH (08:59)
[2020-10-02] MEDS: LIDOCAINE 5% 1 PATCH TD SCH (09:00)
[2020-10-02] MEDS: POTASSIUM CHLORIDE 10 MEQ TABCR PO SCH ×2 (09:01→19:30)
[2020-10-02] MEDS: MULTIVITAMIN TAB PO SCH (09:01)
[2020-10-02] MEDS: CHOLECALCIFEROL 1,000 UNITS 25 MCG TAB PO SCH (09:01)
[2020-10-02] MEDS: ZINC SULFATE 220 MG CAPSULE PO SCH (09:01)
[2020-10-02] MEDS: FERROUS SULFATE 325 MG TAB PO SCH (09:01)
[2020-10-02] MEDS: DULoxetine HCL 60 MG CAP PO SCH (09:01)
[2020-10-02] MEDS: PANTOprazole 40 MG TAB PO SCH ×2 (09:01→19:27)
[2020-10-02] MEDS: ASPIRIN 81 MG ECTAB PO SCH (09:01)
[2020-10-02] MEDS: LORATADINE 10 MG TAB PO SCH (09:01)
[2020-10-02] MEDS: CALCIUM 600MG + VIT D 400 IU TAB PO SCH (09:01)
[2020-10-02] MEDS: ASCORBIC ACID 500 MG TAB PO SCH ×2 (09:02→19:31)
[2020-10-02] MEDS: VITAMIN B COMPLEX TAB PO SCH (09:02)
[2020-10-02] MEDS: SENNA 8.6 MG TAB PO SCH (09:02)
[2020-10-02] MEDS: DOCUSATE SODIUM 100 MG CAP PO SCH ×2 (09:02→19:28)
[2020-10-02] MEDS: GABAPENTIN 300 MG CAP PO SCH ×2 (09:02→19:29)
[2020-10-02] MEDS: HEPARIN SOD 5,000 UNIT/0.5 ML VIAL SQ SCH ×2 (09:03→19:28)
[2020-10-02] MEDS: LACTOBACILLUS ACIDOPHILUS 1 GM PACK PO SCH ×3 (09:03→17:43)
[2020-10-02] MEDS: SODIUM CHLORIDE 0.9% 10ML FLUSH IV SCH (10:00)
[2020-10-02] MEDS: oxyCODONE/ACETAMINOPHEN 5mg/325mg TAB PO PRN (10:47)
--- NOTE | 2020-10-02 17:23 | XRay Report ---
XR lumbar spine 2-3V CLINICAL HISTORY: s/p fall, l-spine pain, eval compression Fx COMPARISON STUDY: Lumbar spine 03/03/2019. FINDINGS: Posterior decompression fusion from L3 through L5 with pedicle screws and rods. Chronic fra cture of the right L5 pedicle screw remains unchanged. No acute fracture or subluxation within the nevaeh mbar spine. Moderate to severe disc space narrowing at L1-L2 and L2-L3, unchanged. Nondisplaced fract ure at the distal sacrum. Bilateral total hip arthroplasties and 8 left lower quadrant pain pump are again noted. IMPRESSION: 1. No acute fracture or subluxation within the lumbar spine. 2. Nondisplaced distal sacral fracture. 3. Chronic fracture of the right L5 pedicle screw, unchanged. ACT 112: Negative or not required by law. Electronically signed by: Abundio Ansari M.D. 10/02/2020 5:21 PM
--- NOTE | 2020-10-02 17:26 | XRay Report ---
LEFT ANKLE 3 VIEWS HISTORY: s/p fall, ankle pain COMPARISON: None. FINDINGS: No acute fracture or dislocation. Small subchondral lucency within the medial talar dome me asuring 4 mm. This is consistent with a small osteochondral defect. Mild soft tissue swelling. No rad iopaque foreign bodies. IMPRESSION: 1. No acute fracture or dislocation within the left ankle. 2. A 4 mm osteochondral defect at the medial talar dome. ACT 112: Negative or not required by law. Electronically signed by: Abundio Ansari M.D. 10/02/2020 5:24 PM
--- NOTE | 2020-10-02 19:25 | Hospitalist Progress Note ---
Date of Service October 02, 2020 Assessment & Plan (1) Sacral fracture: nondisplaced on x-rays today, s/p fall this am in her room. no Rx needed other than pain control. 25-OH vit D level earlier this fall wnl. (2) Left ankle sprain: fortunately no obvious fractures on x-rays. voltaren gel QID for pain. elevate. ice if desired. (3) Pneumonia due to 2019 novel coronavirus: Initial date of dx - 09/09/20. Rx during previous admission with 10-day course decadron, plasma, remdesivir. d/c to [facility]. Re-admitted on 09/27/20 due to recurrent fever, worsening cxr, etc. Repeat course of steroids & remdesivir initiated on 09/27/20 - thus, day #6 of decadron. Remdesivir course is complete. Repeat plasma given on 09/28/20. Has also received course of IV zosyn in the event this was a secondary bacterial pneumonia in setting of recent COVID. day #6 of zosyn. NC O2 requirement is minimal. Cont supportive care. (4) Metabolic encephalopathy: 2nd to COVID delirium, hospital delirium, potentially steroids, other factors. Avoid benzos. reinforce sleep/wake cycle. consider low-dose antipsychotic at HS. follow for now. (5) Gastroesophageal reflux disease: Continue protoinix bid (6) (HFpEF) heart failure with preserved ejection fraction: compensated no evidence volume overload lasix prn (7) Hypertension: controlled without meds (8) Abnormal finding on urinalysis: urine cx from a few days ago grew VRE we treated her for VRE UTI in early September with 7-day course of daptomycin she may simply be colonized denies UTI symptoms cannot exclude that her delirium is from smoldering UTI, however consider repeat u/a in am (9) Chronic back pain: Pain pump in place Refilled on 10/[address] Erickson from [facility] pain management dilaudid PO prn oxycodone PO prn (10) Anemia: s/p 2 units PRBCs at time of admission H/H stable since that time without any signs of overt GI bleeding follow with repeat CBC am tomorrow (11) Follicular lymphoma: dx 12/2017 per records from the [facility] a port was to be placed this month by [facility] but never took place because of recurrent infections (Urosepsis, COVID, etc) platelets are rising - due to lymphoma?? reactive to her infectious processes? med side effect? repeat CBC am (12) Thrombocytosis: worsening now 600's repeat CBC in am etiology? see above (13) DVT prophylaxis: heparin SC daughter Radha extensively updated by phone today cont PT/OT Admission and Anticipated Discharge Date Admission Date: September 27, 2020 Subjective called by nursing staff early this am that patient was standing in the room. staff report that she wanted to walk around the side of the bed "on her own" without help. while doing so she fell to the ground (no loss of consciousness). her left leg got caught up underneath her and she has been c/o pain in the left ankle since. also with acute/chronic low back pain. during my bedside rounds we talked about the fall. patient realizes she should have accepted the help from the staff to walk and "won't do it again." she c/o low back pain - worse than baseline - along with left ankle pain. no pain in either hip, groin or other locations. appetite "fair"; breathing stable/comfortable; no cough. feels very tired. Review of Systems Constitutional: + fatigue, + weakness and + anorexia; no fever, no chills and no body aches Ear, Nose, Mouth, Throat: no loss of taste/smell Respiratory: + dyspnea on exertion (minimal); no sputum production Cardiovascular: no chest pain and no edema Gastrointestinal: no abdominal pain, no nausea and no vomiting Physical Exam Constitutional: + altered mental status (mild confusion) and + frail appearing; no acute distress ENMT: external ear and nose normal, oropharynx normal Respiratory: normal respiratory effort, lungs clear to auscultation no respiratory distress Auscultation: + diminished lung sounds (minimal - bases ) Cardiovascular: Rate/Rhythm: regular rhythm and + tachycardic Heart Sounds: normal S1, normal S2 and + murmur Vessels: posterior tibial pulses present and dorsalis pedis pulses present; no JVD Extremities: no edema Gastrointestinal (Abdomen): normal bowel sounds, soft, nontender, no hepatosplenomegaly pain pump device left abdomen palpable Musculoskeletal: 1. left ankle - tender just inferior to lateral malleolus; no lateral malleolus pain. no medial malleolus pain. scant swelling anterior ankle. 2. b/l hips - passive flexion/extension wnl and without pain. 3. back - t-spine/l-spine without pain to palpation. Tender to palpation over lowest lumbar segments extending into sacral region. 4. no pain or deformity of shoulders, elbows, hands, kneees Skin: no bruises from her fall Psychiatric: Orientation: alert, oriented to person and oriented to place; + not oriented to time Results & Data Results & Data ([facility]) Vital Signs (Past 12 Hours) Vital Signs Temp Pulse Pulse Pulse Pulse Resp BP 10/02/20 18:54 37.2 C 101 H 18 90/60 L 10/02/20 15:11 36.9 C 106 H 18 99/64 L 10/02/20 12:00 36.7 C 104 H 18 114/75 10/02/20 10:28 36.6 C 120 H 20 171/91 H 10/02/20 08:05 36.8 C 103 H 18 120/79 10/02/20 08:00 105 H Pulse Ox 10/02/20 18:54 96 10/02/20 15:11 95 10/02/20 12:00 97 10/02/20 10:28 97 10/02/20 08:05 91 10/02/20 08:00 no labs drawn this am PG Care Time/CCT Total # of Minutes Spent Total Time Spent with Patient: Total time spent is greater than 50% in coordination of care (as documented) at patient's floor/unit and/or counseling patient: Coding Level of Care Code 21828 Subseq Hosp Care Lvl 3 Diagnoses Sacral fracture S32.10XA Encounter type: initial encounter Zone of sacrum fracture: unspecified portion of sacrum Fracture type: closed Left ankle sprain S93.402A Encounter type: initial encounter Involved ligament of ankle: unspecified ligament Pneumonia due to 2019 novel coronavirus U07.1; J12.89 Metabolic encephalopathy G93.41 Gastroesophageal reflux disease K21.9 (HFpEF) heart failure with preserved ejection fraction I50.31 Heart failure chronicity: acute Hypertension I10 Hypertension type: essential hypertension Abnormal finding on urinalysis R82.90 Chronic back pain M54.9; G89.29 Anemia D64.9 Anemia type: unspecified type 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 Follicular lymphoma type: unspecified follicular type Lymphoma site: unspecified region Thrombocytosis D47.3 DVT prophylaxis Z29.9 (1) (HFpEF) heart failure with preserved ejection fraction Heart failure chronicity: acute Qualified Code(s): I50.31 - Acute diastolic (congestive) heart failure (2) Hypertension Hypertension type: essential hypertension Qualified Code(s): I10 - Essential (primary) hypertension (3) Sacral fracture Encounter type: initial encounter Zone of sacrum fracture: unspecified portion of sacrum Fracture type: closed Qualified Code(s): S32.10XA - Unspecified fracture of sacrum, initial encounter for closed fracture (4) Left ankle sprain Encounter type: initial encounter Involved ligament of ankle: unspecified ligament Qualified Code(s): S93.402A - Sprain of unspecified ligament of left ankle, initial encounter (5) Anemia Anemia type: unspecified type Qualified Code(s): D64.9 - Anemia, unspecified (6) Follicular lymphoma Follicular lymphoma type: unspecified follicular type Lymphoma site: unspecified region Qualified Code(s): C82.90 - Follicular lymphoma, unspecified, unspecified site
[2020-10-02] MEDS: DICLOFENAC SOD 1% GEL 100 GM TUBE EXT SCH (19:32)
[2020-10-03] MEDS: PIPERACILLIN/TAZOBACTAM 4.5 GM in DEXTROSE 5% 100 ML IV SCH ×2 (00:27→09:59)
[2020-10-03 07:36] LABS: Hematocrit (blood only) 31.1 % (37-47); Hemoglobin 9.8 g/dL (12.0-16.0); Mean Corpuscular Hemoglobin 27.2 pg (25-34); Mean Corpuscular Hgb Conc 31.5 g/dL (32-36); Mean Corpuscular Volume 86.4 fL (80-100); Mean Platelet Volume 9.3 fL (7.4-10.4); Platelet Count 856 K/uL (130-400); RDW Coefficient of Variation 16.2 % (11.5-14.5); RDW Standard Deviation 50.3 fL (36.4-46.3); White Blood Count 10.67 K/uL (4.8-10.8)
[2020-10-03 08:06] LABS: BUN Creatinine Ratio 29.4 (10-20); Calcium 9.7 mg/dl (8.5-10.1); Creatinine Clr Calc Pharmacy 61.5 ml/min; Est GFR (African American) 86.8; Est GFR (Non-African American) 74.9; Potassium 4.3 mmol/L (3.5-5.1)
[2020-10-03] MEDS: VITAMIN B COMPLEX TAB PO SCH (08:09)
[2020-10-03] MEDS: LIDOCAINE 5% 1 PATCH TD SCH (08:10)
[2020-10-03] MEDS: CHOLECALCIFEROL 1,000 UNITS 25 MCG TAB PO SCH (08:10)
[2020-10-03] MEDS: DULoxetine HCL 60 MG CAP PO SCH (08:10)
[2020-10-03] MEDS: MULTIVITAMIN TAB PO SCH (08:11)
[2020-10-03] MEDS: ZINC SULFATE 220 MG CAPSULE PO SCH (08:11)
[2020-10-03] MEDS: FERROUS SULFATE 325 MG TAB PO SCH (08:11)
[2020-10-03] MEDS: LORATADINE 10 MG TAB PO SCH (08:12)
[2020-10-03] MEDS: ASPIRIN 81 MG ECTAB PO SCH (08:12)
[2020-10-03] MEDS: dexAMETHasone 6 MG in SYRINGE 0 ML IV SCH (10:00)
[2020-10-03] MEDS: SENNA 8.6 MG TAB PO SCH (10:01)
[2020-10-03] MEDS: DOCUSATE SODIUM 100 MG CAP PO SCH ×2 (10:01→20:56)
[2020-10-03] MEDS: POTASSIUM CHLORIDE 10 MEQ TABCR PO SCH ×2 (10:01→20:56)
[2020-10-03] MEDS: GABAPENTIN 300 MG CAP PO SCH ×2 (10:02→20:56)
[2020-10-03] MEDS: ASCORBIC ACID 500 MG TAB PO SCH ×2 (10:02→20:57)
[2020-10-03] MEDS: HEPARIN SOD 5,000 UNIT/0.5 ML VIAL SQ SCH ×2 (10:03→19:36)
[2020-10-03] MEDS: LACTOBACILLUS ACIDOPHILUS 1 GM PACK PO SCH ×3 (10:04→17:07)
[2020-10-03] MEDS: DICLOFENAC SOD 1% GEL 100 GM TUBE EXT SCH ×4 (10:05→20:58)
[2020-10-03] MEDS: CALCIUM 600MG + VIT D 400 IU TAB PO SCH (14:13)
[2020-10-03] MEDS: PANTOprazole 40 MG TAB PO SCH ×2 (14:14→20:56)
--- NOTE | 2020-10-03 15:14 | Ultrasound Report ---
ULTRASOUND BILATERAL LOWER EXTREMITY VENOUS CLINICAL HISTORY: Tachycardia. Varicose veins. Covid. COMPARISON STUDY: Bilateral lower extremity venous ultrasound dated 08/27/2020. TECHNIQUE: Portable real-time, grayscale, and color Doppler sonography of the deep veins of the right and left lower extremity was performed from the inguinal crease to the calf. Compression and augment ation were utilized. FINDINGS: There is no sonographic evidence of deep venous thrombosis identified in the right or left lower extremity. The common femoral, superficial femoral, and popliteal veins are patent and normally compressible bilaterally. The greater saphenous vein and the profunda femoris vein at the junction w ith the common femoral vein are clear in both legs. The visualized calf veins are patent bilaterally. Venous varicosities in the left solis are patent and compressible. IMPRESSION: There is no sonographic evidence of deep venous thrombosis identified in the right or lef t lower extremity. ACT 112: Negative or not required by law. Electronically signed by: Danyel Means M.D. 10/03/2020 3:13 PM
[2020-10-03] MEDS ORDERED: risperiDONE ODT 0.5 MG SOLTAB PO PRN (20:02)
--- NOTE | 2020-10-03 20:04 | Hospitalist Progress Note ---
Date of Service October 03, 2020 Assessment & Plan (1) Sacral fracture: nondisplaced on x-rays, s/p fall 10/02/20 in her room. no Rx needed other than pain control. 25-OH vit D level earlier this fall wnl. (2) Left ankle sprain: fortunately no obvious fractures on x-rays. voltaren gel QID for pain. elevate. ice if desired. improved today. (3) Pneumonia due to 2019 novel coronavirus: Initial date of dx - 09/09/20. Rx during previous admission with 10-day course decadron, plasma, remdesivir. d/c to [facility]. Re-admitted on 09/27/20 due to recurrent fever, worsening cxr, etc. Repeat course of steroids & remdesivir initiated on 09/27/20 - thus, day #7 of decadron. Remdesivir course is complete. Repeat plasma given on 09/28/20. Has also received course of IV zosyn in the event this was a secondary bacterial pneumonia in setting of recent COVID. day #7 of zosyn. can stop zosyn today. NC O2 requirement is minimal. Cont supportive care. ?could she have PEs given her low-grade tachycardia? however, at time of this admission, she had negative CTA chest. check dopplers legs due to varicose veins, etc. (4) Metabolic encephalopathy: ongoing. 2nd to COVID delirium, hospital delirium, potentially steroids, other factors. Avoid benzos. reinforce sleep/wake cycle. ordered low-dose antipsychotic at HS for tonight. Rx for VRE UTI during prior admission. but grew VRE again a few days ago. will recheck u/a and urine cx. if still + then will re-treat --UTI could be causing ongoing failure to thrive and delirium. (5) Gastroesophageal reflux disease: Continue protoinix bid (6) (HFpEF) heart failure with preserved ejection fraction: compensated no evidence volume overload lasix prn (7) Hypertension: controlled without meds (8) Abnormal finding on urinalysis: urine cx from a few days ago grew VRE we treated her for VRE UTI in early September with 7-day course of daptomycin she may simply be colonized denies UTI symptoms presently, but will recheck u/a and urine cx to exclude recurrent UTI (9) Chronic back pain: Pain pump in place Refilled on 10/[address] Erickson [place] [facility] [place] dilaudid PO prn oxycodone PO prn (10) Anemia: s/p 2 units PRBCs at time of admission H/H stable since that time without any signs of overt GI bleeding follow with repeat CBC am tomorrow (11) Follicular lymphoma: dx 12/2017 per records from the [facility] a port was to be placed this month by [facility] [place] but never took place because of recurrent infections (Urosepsis, COVID, etc) platelets are rising - due to lymphoma?? reactive to her infectious processes? med side effect? repeat CBC am (12) Thrombocytosis: worsening now 800's repeat CBC in am etiology? send peripheral smear consider Fe studies see above (13) DVT prophylaxis: heparin SC - increase to 7500 units TID due to increase risk of VTE from COVID daughter Radha extensively updated by phone again today cont PT/OT Admission and Anticipated Discharge Date Admission Date: September 27, 2020 Subjective patient sitting in chair. upon coming in room I called her name and she immediately looked up and said hello. she looked exhausted. she admitted she is sleeping poorly. back continues to be painful. left ankle pain improved today. staff have noted confusion. appetite still poor. fatigue continues. denies cough or dyspnea. Review of Systems Constitutional: + fatigue, + weakness and + anorexia; no fever and no chills Respiratory: + dyspnea on exertion (scant); no cough Cardiovascular: no chest pain Gastrointestinal: no abdominal pain, no nausea and no vomiting Physical Exam Constitutional: + altered mental status (mild confusion) and + frail appearing; no acute distress looks very tired ENMT: external ear and nose normal, oropharynx normal Respiratory: normal respiratory effort, lungs clear to auscultation no respiratory distress Auscultation: + diminished lung sounds (minimal - bases ) Cardiovascular: Rate/Rhythm: regular rhythm and + tachycardic Heart Sounds: normal S1, normal S2 and + murmur Vessels: posterior tibial pulses present and dorsalis pedis pulses present; no JVD Extremities: no edema Gastrointestinal (Abdomen): normal bowel sounds, soft, nontender, no hepatosplenomegaly Musculoskeletal: no swelling over left ankle visually Psychiatric: Orientation: alert, oriented to person and oriented to place; + not oriented to time Results & Data Results & Data ([facility]) Vital Signs (Past 12 Hours) Vital Signs Temp Pulse Resp BP Pulse Ox 10/03/20 15:27 37.1 C 98 H 18 116/75 97 10/03/20 10:56 36.9 C 102 H 20 109/69 94 10/03/20 08:23 36.9 C 111 H 20 119/80 91 Laboratory Results Laboratory Results - last 24 hr 10/03/20 10/03/20 06:54 06:54 WBC 10.67 RBC 3.60 L Hgb 9.8 L Hct 31.1 L MCV 86.4 MCH 27.2 MCHC 31.5 L RDW Std Deviation 50.3 H RDW Coeff of Inge 16.2 H Plt Count 856 H MPV 9.3 Sodium 138 Potassium 4.3 Chloride 103 Carbon Dioxide 30 Anion Gap 5.0 BUN 23 H Creatinine 0.78 Est Cr Clr Drug Dosing 61.5 Est GFR ( Amer) 86.8 Est GFR (Non-Af Amer) 74.9 BUN/Creatinine Ratio 29.4 H Glucose 91 Calcium 9.7 Total Creatine Kinase 36 PG Care Time/CCT Total # of Minutes Spent Total Time Spent with Patient: Total time spent is greater than 50% in coordination of care (as documented) at patient's floor/unit and/or counseling patient: Coding Level of Care Code 97726 Subseq Hosp Care Lvl 3 Diagnoses Sacral fracture S32.10XA Encounter type: initial encounter Zone of sacrum fracture: unspecified portion of sacrum Fracture type: closed Left ankle sprain S93.402A Encounter type: initial encounter Involved ligament of ankle: unspecified ligament Pneumonia due to 2019 novel coronavirus U07.1; J12.89 Metabolic encephalopathy G93.41 Gastroesophageal reflux disease K21.9 (HFpEF) heart failure with preserved ejection fraction I50.31 Heart failure chronicity: acute Hypertension I10 Hypertension type: essential hypertension Abnormal finding on urinalysis R82.90 Chronic back pain M54.9; G89.29 Anemia D64.9 Anemia type: unspecified type 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 Follicular lymphoma type: unspecified follicular type Lymphoma site: unspecified region Thrombocytosis D47.3 DVT prophylaxis Z29.9 (1) Sacral fracture Encounter type: initial encounter Zone of sacrum fracture: unspecified portion of sacrum Fracture type: closed Qualified Code(s): S32.10XA - Unspecified fracture of sacrum, initial encounter for closed fracture (2) Left ankle sprain Encounter type: initial encounter Involved ligament of ankle: unspecified ligament Qualified Code(s): S93.402A - Sprain of unspecified ligament of left ankle, initial encounter (3) (HFpEF) heart failure with preserved ejection fraction Heart failure chronicity: acute Qualified Code(s): I50.31 - Acute diastolic (congestive) heart failure (4) Hypertension Hypertension type: essential hypertension Qualified Code(s): I10 - Essential (primary) hypertension (5) Anemia Anemia type: unspecified type Qualified Code(s): D64.9 - Anemia, unspecified (6) Follicular lymphoma Follicular lymphoma type: unspecified follicular type Lymphoma site: unspecified region Qualified Code(s): C82.90 - Follicular lymphoma, unspecified, unspecified site
[2020-10-03 22:42] LABS: Appearance Urine Cloudy (Clear); Bilirubin Urine Negative (Negative); Blood Urine 3+ (Negative); Color Urine Yellow; Glucose Urine UA Negative (Negative); Ketones Urine Negative (Negative); Leukocyte Esterase Urine 2+ (Negative); Nitrite Urine Negative (Negative); Protein Urine 1+ (Negative); Specific Gravity Urine >= 1.030 (1.000-1.030); Urobilinogen Urine Negative (Negative)
[2020-10-03 22:53] LABS: Bacteria Urine 2+ (Negative); Epithelial Cell Urine >30 /lpf (0-5); RBC Urine >30 /hpf (0-4); Renal Epithelial Cells Urine >30 /lpf (0-5); WBC Urine >30 /hpf (0-5)
[2020-10-03] MEDS ORDERED: PHENAZOPYRIDINE HCL 200 MG TAB PO PRN (23:53)
--- NOTE | 2020-10-03 23:53 | Communication Note ---
Date of Service: October 03, 2020 Notified overnight that pt was now symptomatic, having dysuria. Noted results of repeat UA, and that UA from 09/29 grew VRE sensitive to daptomycin. Pt ordered a dose of daptomycin overnight, as well as pyridium TID PRN. 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
[2020-10-04] MEDS: DAPTOmycin 375 MG in SYRINGE 0 ML IV SCH (01:14)
[2020-10-04] MEDS: HEPARIN SOD 5,000 UNIT/0.5 ML VIAL SQ SCH ×3 (05:44→20:34)
[2020-10-04 07:31] LABS: Eosinophils # (auto) 0.05 K/uL (0-0.5); Eosinophils % (auto) 0.5 %; Hematocrit (blood only) 28.1 % (37-47); Hemoglobin 8.9 g/dL (12.0-16.0); Immature Granulocytes # (auto) 0.13 K/uL (0.00-0.02); Immature Granulocytes % (auto) 1.3 %; Lymphocytes # (auto) 0.79 K/uL (1.2-3.4); Lymphocytes % (auto) 8.2 %; Mean Corpuscular Hemoglobin 27.6 pg (25-34); Mean Corpuscular Hgb Conc 31.7 g/dL (32-36); Mean Corpuscular Volume 87.3 fL (80-100); Mean Platelet Volume 9.3 fL (7.4-10.4); Monocytes # (auto) 0.72 K/uL (0.11-0.59); Monocytes % (auto) 7.4 %; Neutrophils # (auto) 7.99 K/uL (1.4-6.5); Neutrophils % (auto) 82.6 %; Platelet Count 800 K/uL (130-400); RDW Coefficient of Variation 16.7 % (11.5-14.5); Red Blood Count 3.22 M/uL (4.2-5.4); White Blood Count 9.68 K/uL (4.8-10.8)
[2020-10-04 07:50] LABS: D Dimer 2150 ug/L FEU (0-500)
[2020-10-04 08:08] LABS: RBC Morphology Unremarkable
[2020-10-04 08:37] LABS: BUN Creatinine Ratio 30.7 (10-20); Creatinine Clr Calc Pharmacy 77.4 ml/min; Est GFR (Non-African American) 88.8; Potassium 3.8 mmol/L (3.5-5.1)
[2020-10-04] MEDS: ZINC SULFATE 220 MG CAPSULE PO SCH (10:14)
[2020-10-04] MEDS: VITAMIN B COMPLEX TAB PO SCH (10:14)
[2020-10-04] MEDS: POTASSIUM CHLORIDE 10 MEQ TABCR PO SCH ×2 (10:14→20:33)
[2020-10-04] MEDS: CALCIUM 600MG + VIT D 400 IU TAB PO SCH (10:14)
[2020-10-04] MEDS: ASCORBIC ACID 500 MG TAB PO SCH ×2 (10:14→20:33)
[2020-10-04] MEDS: LACTOBACILLUS ACIDOPHILUS 1 GM PACK PO SCH ×3 (10:15→17:00)
[2020-10-04] MEDS: DULoxetine HCL 60 MG CAP PO SCH (10:15)
[2020-10-04] MEDS: LIDOCAINE 5% 1 PATCH TD SCH (10:15)
[2020-10-04] MEDS: ASPIRIN 81 MG ECTAB PO SCH (10:15)
[2020-10-04] MEDS: FERROUS SULFATE 325 MG TAB PO SCH (10:16)
[2020-10-04] MEDS: dexAMETHasone 6 MG in SYRINGE 0 ML IV SCH (10:16)
[2020-10-04] MEDS: SENNA 8.6 MG TAB PO SCH (10:16)
[2020-10-04] MEDS: GABAPENTIN 300 MG CAP PO SCH ×2 (10:16→20:33)
[2020-10-04] MEDS: CHOLECALCIFEROL 1,000 UNITS 25 MCG TAB PO SCH (10:16)
[2020-10-04] MEDS: DOCUSATE SODIUM 100 MG CAP PO SCH ×2 (10:16→20:26)
[2020-10-04] MEDS: PANTOprazole 40 MG TAB PO SCH ×2 (10:17→20:33)
[2020-10-04] MEDS: LORATADINE 10 MG TAB PO SCH (10:17)
[2020-10-04] MEDS: MULTIVITAMIN TAB PO SCH (10:18)
[2020-10-04] MEDS: DICLOFENAC SOD 1% GEL 100 GM TUBE EXT SCH ×4 (10:20→20:35)
[2020-10-04] MEDS: ACETAMINOPHEN 325 MG TAB PO PRN ×2 (10:24→14:41)
--- NOTE | 2020-10-04 18:45 | Hospitalist Progress Note ---
Date of Service October 04, 2020 Assessment & Plan (1) Sacral fracture: nondisplaced on x-rays, s/p fall 10/02/20 in her room. no Rx needed other than pain control. 25-OH vit D level earlier this fall wnl. stable. (2) Left ankle sprain: fortunately no obvious fractures on x-rays. voltaren gel QID for pain. elevate. much improved. (3) Pneumonia due to 2019 novel coronavirus: Initial date of dx - 09/09/20. Rx during previous admission with 10-day course decadron, plasma, remdesivir. d/c to [facility]. Re-admitted on 09/27/20 due to recurrent fever, worsening cxr, etc. Repeat course of steroids & remdesivir initiated on 09/27/20 - thus, day #8 of decadron. Remdesivir course is complete. Repeat plasma given on 09/28/20. Received 7-day course of IV zosyn in the event this was a secondary bacterial pneumonia in setting of recent COVID. Zosyn stopped 10/03. [place] O2 requirement is minimal. Cont supportive care. ?could she have PEs given her low-grade tachycardia? however, at time of this admission, she had negative CTA chest. checked dopplers legs due to varicose veins, etc and these were negative. (4) Metabolic encephalopathy: ongoing but MUCH IMPROVED today. 2nd to COVID delirium, hospital delirium, potentially steroids, other factors. Avoid benzos. reinforce sleep/wake cycle. ordered low-dose antipsychotic at HS for prn use. Rx for VRE UTI during prior admission. but grew VRE again a few days ago. and u/a again dirty. await culture. recurrent UTI could contribute to encephalopathy. (5) Gastroesophageal reflux disease: Continue protoinix bid (6) (HFpEF) heart failure with preserved ejection fraction: compensated no evidence volume overload lasix prn (7) Hypertension: controlled without meds (8) Abnormal finding on urinalysis: urine cx from a few days ago grew VRE we treated her for VRE UTI in early September with 7-day course of daptomycin she may simply be colonized now symptomatic for UTI await culture daptomycin started today (9) Chronic back pain: Pain pump in place Refilled on 10/[address] Erickson [place] [facility] dilaudid PO prn oxycodone PO prn (10) Anemia: s/p 2 units PRBCs at time of admission H/H stable since that time without any signs of overt GI bleeding spoke with Dr Verde - in light of rising platelets he advised repeating her iron studies check Fe, trans-sat, etc ferritin level recently elevated due to acute phase reactant (11) Follicular lymphoma: dx 12/2017 per records from the [facility] a port was to be placed this month by [facility] gen surg but never took place because of recurrent infections (Urosepsis, COVID, etc) platelets are rising - due to lymphoma?? reactive to her infectious processes? med side effect? suspect REACTIVE platelets appear to have peaked and coming down check Fe studies am repeat CBC am (12) Thrombocytosis: worsening, but appears to have peaked yesterday into today repeat CBC in am etiology? send peripheral smear check Fe studies spoke with Dr Verde about this - we are both thinking it is reactive cont to monitor (13) DVT prophylaxis: heparin SC - 7500 units TID due to increased risk of VTE from COVID daughter Radha extensively updated by phone again today ([phone]) cont PT/OT Admission and Anticipated Discharge Date Admission Date: September 27, 2020 Subjective tele overnight - NSR or sinus tach (low 100s). patient states she feels better today. not as much confusion. staff report better night last pm with less confusion as well. she has developed mild dysuria. denies cough, dyspnea at rest or MEEHAN. denies abd pain. left ankle pain nearly resolved. continues with tailbone pain. anorexia continues. Review of Systems Constitutional: + fatigue, + weakness and + anorexia; no fever, no chills and no body aches Respiratory: no cough Cardiovascular: no chest pain Gastrointestinal: no abdominal pain Physical Exam Constitutional: + frail appearing; no acute distress and no altered mental status looks better today; confusion nearly resolved ENMT: external ear and nose normal, oropharynx normal Respiratory: normal respiratory effort, lungs clear to auscultation no respiratory distress Auscultation: + diminished lung sounds (minimal - bases ) Cardiovascular: Rate/Rhythm: regular rhythm and + tachycardic Heart Sounds: normal S1, normal S2 and + murmur Vessels: posterior tibial pulses present and dorsalis pedis pulses present; no JVD Extremities: no edema Gastrointestinal (Abdomen): normal bowel sounds, soft, nontender, no hepatosplenomegaly Musculoskeletal: kyphoscoliosis- severe;left ankle - no swelling, no tenderness Psychiatric: Orientation: alert, oriented to person, oriented to place and oriented to time Results & Data Results & Data ([facility]) Vital Signs (Past 12 Hours) Vital Signs Temp Pulse Pulse Pulse Resp BP Pulse Ox 10/04/20 16:00 55 L 10/04/20 15:15 37.4 C 101 H 18 112/66 100 10/04/20 12:04 36.9 C 108 H 16 99/64 L 96 10/04/20 08:00 98 H 10/04/20 07:53 37.2 C 98 H 16 98/64 L 93 Laboratory Results Laboratory Results - last 24 hr 10/03/20 10/04/20 10/04/20 Unknown 06:07 06:07 WBC 9.68 RBC 3.22 L Hgb 8.9 L Hct 28.1 L MCV 87.3 MCH 27.6 MCHC 31.7 L RDW Std Deviation 52.0 H RDW Coeff of Inge 16.7 H Plt Count 800 H MPV 9.3 Immature Gran % (Auto) 1.3 Neut % (Auto) 82.6 Lymph % (Auto) 8.2 [place] % (Auto) 7.4 Eos % (Auto) 0.5 Baso % (Auto) 0.0 Neut # (Auto) 7.99 H Lymph # (Auto) 0.79 L [place] # (Auto) 0.72 H Eos # (Auto) 0.05 Baso # (Auto) 0.00 Immature Gran # (Auto) 0.13 H RBC Morphology Unremarkable Peripher Smr Path Cons Pending D-Dimer 2150 H* Sodium Potassium Chloride Carbon Dioxide Anion Gap BUN Creatinine Est Cr Clr Drug Dosing Est GFR ( Amer) Est GFR (Non-Af Amer) BUN/Creatinine Ratio Glucose Calcium Lactate Dehydrogenase Procalcitonin Urine Color Yellow Urine Appearance Cloudy A Urine pH 6.0 Ur Specific [place] >= 1.030 Urine Protein 1+ H Urine Glucose (UA) Negative Urine Ketones Negative Urine Blood 3+ H Urine Nitrite Negative Urine Bilirubin Negative Urine Urobilinogen Negative Ur Leukocyte Esterase 2+ H Urine RBC >30 H Urine WBC >30 H Ur Epithelial Cells >30 H Ur Renal Epithelial Cell >30 H Urine Bacteria 2+ H 10/04/20 10/04/20 10/04/20 06:07 06:07 06:07 WBC RBC Hgb Hct MCV MCH MCHC RDW Std Deviation RDW Coeff of Inge Plt Count MPV Immature Gran % (Auto) Neut % (Auto) Lymph % (Auto) [place] % (Auto) Eos % (Auto) Baso % (Auto) Neut # (Auto) Lymph # (Auto) [place] # (Auto) Eos # (Auto) Baso # (Auto) Immature Gran # (Auto) RBC Morphology Peripher Smr Path Cons D-Dimer Sodium 137 Potassium 3.8 Chloride 103 Carbon Dioxide 29 Anion Gap 5.0 BUN 19 H Creatinine 0.62 Est Cr Clr Drug Dosing 77.4 Est GFR ( Amer) 103.0 Est GFR (Non-Af Amer) 88.8 BUN/Creatinine Ratio 30.7 H Glucose 78 Calcium 9.0 Lactate Dehydrogenase 349 H Procalcitonin 0.22 Urine Color Urine Appearance Urine pH Ur Specific [place] Urine Protein Urine Glucose (UA) Urine Ketones Urine Blood Urine Nitrite Urine Bilirubin Urine Urobilinogen Ur Leukocyte Esterase Urine RBC Urine WBC Ur Epithelial Cells Ur Renal Epithelial Cell Urine Bacteria urine cx pending PG Care Time/CCT Total # of Minutes Spent Total Time Spent with Patient: Total time spent is greater than 50% in coordination of care (as documented) at patient's floor/unit and/or counseling patient: Coding Level of Care Code 13809 Subseq Hosp Care Lvl 3 Diagnoses Sacral fracture S32.10XA Encounter type: initial encounter Fracture type: closed Zone of sacrum fracture: unspecified portion of sacrum Left ankle sprain S93.402A Encounter type: initial encounter Involved ligament of ankle: unspecified ligament Pneumonia due to 2019 novel coronavirus U07.1; J12.89 Metabolic encephalopathy G93.41 Gastroesophageal reflux disease K21.9 (HFpEF) heart failure with preserved ejection fraction I50.31 Heart failure chronicity: acute Hypertension I10 Hypertension type: essential hypertension Abnormal finding on urinalysis R82.90 Chronic back pain M54.9; G89.29 Anemia D64.9 Anemia type: unspecified type 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 Follicular lymphoma type: unspecified follicular type Lymphoma site: unspecified region Thrombocytosis D47.3 DVT prophylaxis Z29.9 (1) (HFpEF) heart failure with preserved ejection fraction Heart failure chronicity: acute Qualified Code(s): I50.31 - Acute diastolic (congestive) heart failure (2) Anemia Anemia type: unspecified type Qualified Code(s): D64.9 - Anemia, unspecified (3) Follicular lymphoma Follicular lymphoma type: unspecified follicular type Lymphoma site: unspecified region Qualified Code(s): C82.90 - Follicular lymphoma, unspecified, unspecified site (4) Sacral fracture Encounter type: initial encounter Fracture type: closed Zone of sacrum fracture: unspecified portion of sacrum Qualified Code(s): S32.10XA - Unspecified fracture of sacrum, initial encounter for closed fracture (5) Hypertension Hypertension type: essential hypertension Qualified Code(s): I10 - Essential (primary) hypertension (6) Left ankle sprain Encounter type: initial encounter Involved ligament of ankle: unspecified ligament Qualified Code(s): S93.402A - Sprain of unspecified ligament of left ankle, initial encounter
[2020-10-04] MEDS: FLUTICASONE PROPIONATE NA SPR 16 GM BTL PRN (20:33)
[2020-10-05] MEDS: DAPTOmycin 375 MG in SYRINGE 0 ML IV SCH ×2 (00:13→23:36)
[2020-10-05] MEDS: ACETAMINOPHEN 325 MG TAB PO PRN ×2 (00:13→21:17)
[2020-10-05] MEDS: MELATONIN 3 MG TAB PO PRN ×2 (00:26→21:17)
[2020-10-05] MEDS: FLUTICASONE PROPIONATE NA SPR 16 GM BTL PRN (00:31)
[2020-10-05] MEDS: HEPARIN SOD 5,000 UNIT/0.5 ML VIAL SQ SCH ×3 (05:30→14:57)
[2020-10-05 08:01] LABS: Basophils # (auto) 0.01 K/uL (0-0.2); Basophils % (auto) 0.1 %; Eosinophils # (auto) 0.04 K/uL (0-0.5); Eosinophils % (auto) 0.6 %; Hematocrit (blood only) 28.4 % (37-47); Hemoglobin 8.8 g/dL (12.0-16.0); Immature Granulocytes # (auto) 0.12 K/uL (0.00-0.02); Immature Granulocytes % (auto) 1.8 %; Lymphocytes # (auto) 1.07 K/uL (1.2-3.4); Lymphocytes % (auto) 15.9 %; Mean Corpuscular Hemoglobin 27.1 pg (25-34); Mean Corpuscular Volume 87.4 fL (80-100); Mean Platelet Volume 8.9 fL (7.4-10.4); Monocytes # (auto) 0.71 K/uL (0.11-0.59); Monocytes % (auto) 10.6 %; Neutrophils # (auto) 4.77 K/uL (1.4-6.5); Platelet Count 684 K/uL (130-400); RDW Coefficient of Variation 17.1 % (11.5-14.5); RDW Standard Deviation 53.2 fL (36.4-46.3); Red Blood Count 3.25 M/uL (4.2-5.4); White Blood Count 6.72 K/uL (4.8-10.8)
[2020-10-05] MEDS: LIDOCAINE 5% 1 PATCH TD SCH (08:28)
[2020-10-05] MEDS: dexAMETHasone 6 MG in SYRINGE 0 ML IV SCH (08:29)
[2020-10-05] MEDS: PANTOprazole 40 MG TAB PO SCH ×2 (08:29→20:57)
[2020-10-05] MEDS: VITAMIN B COMPLEX TAB PO SCH (08:29)
[2020-10-05] MEDS: DULoxetine HCL 60 MG CAP PO SCH (08:29)
[2020-10-05] MEDS: LACTOBACILLUS ACIDOPHILUS 1 GM PACK PO SCH ×3 (08:30→18:27)
[2020-10-05] MEDS: ZINC SULFATE 220 MG CAPSULE PO SCH (08:30)
[2020-10-05] MEDS: DICLOFENAC SOD 1% GEL 100 GM TUBE EXT SCH ×4 (08:30→20:58)
[2020-10-05] MEDS: CALCIUM 600MG + VIT D 400 IU TAB PO SCH (08:30)
[2020-10-05] MEDS: CHOLECALCIFEROL 1,000 UNITS 25 MCG TAB PO SCH (08:31)
[2020-10-05] MEDS: ASCORBIC ACID 500 MG TAB PO SCH ×2 (08:31→20:56)
[2020-10-05] MEDS: MULTIVITAMIN TAB PO SCH (08:31)
[2020-10-05] MEDS: SENNA 8.6 MG TAB PO SCH (08:31)
[2020-10-05] MEDS: DOCUSATE SODIUM 100 MG CAP PO SCH ×2 (08:31→20:55)
[2020-10-05] MEDS: GABAPENTIN 300 MG CAP PO SCH ×2 (08:32→20:56)
[2020-10-05] MEDS: LORATADINE 10 MG TAB PO SCH (08:33)
[2020-10-05] MEDS: ASPIRIN 81 MG ECTAB PO SCH (08:34)
[2020-10-05] MEDS: POTASSIUM CHLORIDE 10 MEQ TABCR PO SCH ×2 (08:34→20:57)
[2020-10-05 09:42] LABS: BUN Creatinine Ratio 24.3 (10-20); Creatinine Clr Calc Pharmacy 76.2 ml/min; Est GFR (African American) 102.4; Est GFR (Non-African American) 88.4; Potassium 4.4 mmol/L (3.5-5.1)
--- NOTE | 2020-10-05 10:20 | Hospitalist Progress Note ---
Date of Service October 05, 2020 Assessment & Plan (1) Sacral fracture: nondisplaced on x-rays, s/p fall 10/02/20 in her room. no Rx needed other than pain control. 25-OH vit D level earlier this fall wnl. stable. plan for rehab at [facility] (2) Left ankle sprain: fortunately no obvious fractures on x-rays. voltaren gel QID for pain. elevate. much improved. (3) Pneumonia due to 2019 novel coronavirus: Initial date of dx - 09/09/20. Rx during previous admission with 10-day course decadron, plasma, remdesivir. d/c to [facility]. Re-admitted on 09/27/20 due to recurrent fever, worsening cxr, etc. Repeat course of steroids & remdesivir initiated on 09/27/20 - thus, day #9 of decadron. Remdesivir course is complete. Repeat plasma given on 09/28/20. Received 7-day course of IV zosyn in the event this was a secondary bacterial pneumonia in setting of recent COVID. Zosyn stopped 10/03. [place] O2 requirement is minimal. Cont supportive care. ?could she have PEs given her low-grade tachycardia? however, at time of this admission, she had negative CTA chest. checked dopplers legs due to varicose veins, etc and these were NEGATIVE will finish Decadron tomorrow, no further treatment needed, on minimal oxygen via [place] (4) Metabolic encephalopathy: appears to be resolved today 2nd to COVID delirium, hospital delirium, potentially steroids, other factors. Avoid benzos. reinforce sleep/wake cycle. ordered low-dose antipsychotic at for prn use. Rx for VRE UTI during prior admission. but grew VRE again a few days ago. and u/a again dirty. await culture. recurrent UTI could contribute to encephalopathy. (5) Gastroesophageal reflux disease: Continue protoinix bid (6) (HFpEF) heart failure with preserved ejection fraction: compensated no evidence volume overload lasix prn (7) Hypertension: controlled without meds (8) Abnormal finding on urinalysis: urine cx from a few days ago grew VRE we treated her for VRE UTI in early September with 7-day course of daptomycin she may simply be colonized now symptomatic for UTI await culture daptomycin started 10/04, continue until repeat culture complete (9) Chronic back pain: Pain pump in place Refilled on 10/[address] Erickson from [facility] dilaudid PO prn oxycodone PO prn (10) Anemia: s/p 2 units PRBCs at time of admission H/H trended down slightly to 8.8 today, no signs of bleeding spoke with Dr Verde - in light of rising platelets he advised repeating her iron studies iron low at 32, transferrin 132 will give Venofer, likely a degree of chronic disease anemia as well ferritin level recently elevated due to acute phase reactant (11) Follicular lymphoma: dx 12/2017 per records from the [facility] a port was to be placed this month by [facility] gen surg but never took place because of recurrent infections (Urosepsis, COVID, etc) platelets are rising - due to lymphoma?? reactive to her infectious processes? med side effect? suspect REACTIVE platelets appear to have peaked and coming down, down to 680k today check Fe studies am repeat CBC am (12) Thrombocytosis: worsening, but appears to have peaked two days ago repeat CBC in am etiology? send peripheral smear check Fe studies spoke with Dr Verde about this - we are both thinking it is reactive cont to monitor (13) DVT prophylaxis: Lovenox 40mg daily cont PT/OT , [facility] Thursday? Admission and Anticipated Discharge Date Admission Date: September 27, 2020 Subjective patient reports that her breathing is stable, has some pain in her sacrum from her fall she is eating okay c/o pain in abdomen from numerous heparin shots, discussed that we could change to Lovenox she says that she wants to go to [facility], wishes she could go today, I told her earliest would be Thursday due to bed availability I updated her daughter over the phone reviewed the chart extensively reviewed labs, Hb is 8.8, plts down slightly at 680k, Cr is 0.6, D dimer was 2000 recently urine culture with VRE, but it was this on 09/25 and 10/02, could be colonizer Review of Systems Review of Systems: All systems reviewed & are unremarkable except as noted in Subjective Respiratory: + cough, + chest congestion and + dyspnea on exertion; no dyspnea and no wheezing Cardiovascular: no chest pain Musculoskeletal: + back pain (low back, sacrum) Physical Exam Constitutional: well developed, + thin and + frail appearing; no acute distress Neck: trachea midline, no thyromegaly Respiratory: normal respiratory effort, lungs clear to auscultation Cardiovascular: RRR, no murmur, no edema Gastrointestinal (Abdomen): normal bowel sounds, soft, nontender, no hepatosplenomegaly Musculoskeletal: Spine: + limited thoraco-lumbar ROM and + scoliosis Extremities: extremities normal to inspection and + abnormal strength (generailzed weakness) Skin: no rashes, warm and dry Neurologic: patellar DTR's 2+ bilat, sensation intact and PERRL, EOMI, accommodation nl, no face palsy, no dysarthria Psychiatric: A+Ox3, euthymic affect Lymphatic: no cervical or axillary lymphadenopathy Results & Data Results & Data ([facility]) Vital Signs (Past 12 Hours) Vital Signs Temp Pulse Pulse Resp BP BP Pulse Ox 10/05/20 07:19 37.0 C 84 18 109/71 97 10/05/20 03:38 37.2 C 84 16 101/55 L 94 10/05/20 00:35 104 H 100 10/05/20 00:21 37.1 C 16 10/05/20 00:18 110/68 Laboratory Results Laboratory Results - last 24 hr 10/04/20 10/05/20 10/05/20 06:07 07:30 07:30 WBC 6.72 RBC 3.25 L Hgb 8.8 L Hct 28.4 L MCV 87.4 MCH 27.1 MCHC 31.0 L RDW Std Deviation 53.2 H RDW Coeff of Inge 17.1 H Plt Count 684 H MPV 8.9 Immature Gran % (Auto) 1.8 Neut % (Auto) 71.0 Lymph % (Auto) 15.9 [place] % (Auto) 10.6 Eos % (Auto) 0.6 Baso % (Auto) 0.1 Neut # (Auto) 4.77 Lymph # (Auto) 1.07 L [place] # (Auto) 0.71 H Eos # (Auto) 0.04 Baso # (Auto) 0.01 Immature Gran # (Auto) 0.12 H Peripher Smr Path Cons Sodium 137 Potassium 4.4 D Chloride 104 Carbon Dioxide 31 Anion Gap 2.0 L BUN 15 Creatinine 0.63 Est Cr Clr Drug Dosing 76.2 Est GFR ( Amer) 102.4 Est GFR (Non-Af Amer) 88.4 BUN/Creatinine Ratio 24.3 H Glucose 93 Calcium 9.0 Iron 32 L Transferrin 132 L Transferrin % Sat 17 Medications Administered Current Inpatient Medications Acetaminophen (Acetaminophen 325 Mg Tab) 650 mg PO Q4H PRN PRN Reason: Pain or Fever Stop: 10/27/20 19:22 Last Admin: 10/05/20 00:13 Dose: 650 mg Documented by: Al Hydrox/Mg Hydrox/Simethicone (Aluminum/Magnesium Susp 30 Ml Udc) 15 ml PO Q4H PRN PRN Reason: Dyspepsia Stop: 10/27/20 19:22 Albuterol (Albuterol Hfa 8 Gm Inhaler) 1 puffs INH QIDR PRN PRN Reason: Shortness Of Breath Stop: 10/27/20 19:45 Ascorbic Acid (Ascorbic Acid 500 Mg Tab) 500 mg PO BID [facility] Stop: 10/27/20 20:59 Last Admin: 10/05/20 08:31 Dose: 500 mg Documented by: Aspirin (Aspirin 81 Mg Ectab) 81 mg PO QAM [facility] Stop: 10/28/20 08:59 Last Admin: 10/05/20 08:34 Dose: 81 mg Documented by: Diclofenac Sodium (Diclofenac Sod 1% Gel 100 Gm Tube) 4 gm EXT QID [facility] Stop: 11/01/20 20:59 Last Admin: 10/04/20 20:35 Dose: 4 gm Documented by: Docusate Sodium (Docusate Sodium 100 Mg Cap) 100 mg PO BID [facility] Stop: 10/27/20 20:59 Last Admin: 10/05/20 08:31 Dose: Not Given Documented by: Duloxetine HCl (Duloxetine Hcl 60 Mg Cap) 120 mg PO QAM [facility] Stop: 10/28/20 08:59 Last Admin: 10/05/20 08:29 Dose: 120 mg Documented by: Ferrous Sulfate (Ferrous Sulfate 325 Mg Tab) 325 mg PO QAM [facility] Stop: 10/28/20 08:59 Last Admin: 10/04/20 10:16 Dose: 325 mg Documented by: Fluticasone Propionate (Fluticasone Propionate Na Spr 16 Gm Btl) 2 sprays NA DAILY PRN PRN Reason: allergy symptoms Stop: 10/27/20 19:22 Last Admin: 10/05/20 00:31 Dose: 2 sprays Documented by: Gabapentin (Gabapentin 300 Mg Cap) 300 mg PO BID [facility] Stop: 10/27/20 20:59 Last Admin: 10/05/20 08:32 Dose: 300 mg Documented by: Heparin Sodium (Porcine) (Heparin Sod 5,000 Unit/0.5 Ml Vial) 7,500 units SQ Q8 [facility] Stop: 11/03/20 05:59 Last Admin: 10/05/20 05:30 Dose: 7,500 units Documented by: Hydromorphone HCl (Hydromorphone Hcl 2 Mg Tab) 2 mg PO Q6H PRN PRN Reason: Breakthrough Pain Stop: 10/11/20 19:22 Sodium Chloride (Nss) 250 mls @ 15 mls/hr IV .[id number] PRN PRN Reason: For Transfusion Stop: 10/27/20 19:22 Dexamethasone 6 mg/ Syringe 1.5 mls @ 1 mls/min IV Q24H [facility] Stop: 11/02/20 07:59 Last Admin: 10/05/20 08:29 Dose: 1 mls/min Documented by: Daptomycin 375 mg/ Syringe 7.5 mls @ 3.75 mls/min IV Q24H [facility]; Protocol Stop: 10/14/20 00:59 Last Admin: 10/05/20 00:13 Dose: 3.75 mls/min Documented by: Lactobacillus Acidophilus (Lactobacillus Acidophilus 1 Gm Pack) 1 gm PO TIDM [facility] Stop: 11/01/20 07:59 Last Admin: 10/05/20 08:30 Dose: 1 gm Documented by: Levalbuterol HCl (Levalbuterol Tartrate 15 Gm Hfa.Aer.Ad) 1 puffs INH QIDR PRN PRN Reason: Shortness Of Breath Stop: 10/27/20 19:46 Lidocaine (Lidocaine 5% 1 Patch) 3 patch TD DAILY [facility] Stop: 10/30/20 08:59 Last Admin: 10/05/20 08:28 Dose: 3 patch Documented by: Loratadine (Loratadine 10 Mg Tab) 10 mg PO QAM [facility] Stop: 10/28/20 08:59 Last Admin: 10/05/20 08:33 Dose: 10 mg Documented by: Magnesium Hydroxide (Magnesium Hydroxide Susp 30 Ml Udc) 30 ml PO Q12H PRN PRN Reason: Constipation Stop: 10/27/20 19:22 Melatonin (Melatonin 3 Mg Tab) 6 mg PO HS PRN PRN Reason: Sleep Stop: 10/27/20 19:22 Last Admin: 10/05/20 00:26 Dose: 6 mg Documented by: Miscellaneous (Remove Lidoderm Patch) 1 ea N/A HS [facility] Stop: 10/30/20 20:59 Last Admin: 10/04/20 20:35 Dose: 1 ea Documented by: Miscellaneous Information (Daptomycin Consult Active) 1 ea N/A UD PRN PRN Reason: Consult Stop: 11/02/20 23:50 Multivitamins (Multivitamin Tab) 2 tab PO QAM [facility] Stop: 10/28/20 08:59 Last Admin: 10/05/20 08:31 Dose: 2 tab Documented by: Multivitamins/Minerals (Calcium 600mg + Vit D 400 Iu Tab) 1 tab PO QAM [facility] Stop: 10/28/20 08:59 Last Admin: 10/05/20 08:30 Dose: 1 tab Documented by: Ondansetron HCl (Ondansetron Inj 2 Mg/Ml 2 Ml Vial) 4 mg IV Q6H PRN PRN Reason: Nausea Stop: 10/27/20 19:22 Oxycodone/Acetaminophen (Oxycodone/Acetaminophen 5mg/325mg Tab) 1 tab PO Q4H PRN PRN Reason: Pain Stop: 10/15/20 14:34 Last Admin: 10/02/20 10:47 Dose: 1 tab Documented by: Pantoprazole Sodium (Pantoprazole 40 Mg Tab) 40 mg PO BID [facility] Stop: 10/28/20 20:59 Last Admin: 10/05/20 08:29 Dose: 40 mg Documented by: Phenazopyridine HCl (Phenazopyridine Hcl 200 Mg Tab) 200 mg PO TID PRN PRN Reason: Bladder pain Stop: 11/02/20 23:52 Polyethylene Glycol (Polyethylene (Miralax) 17 Gm Pack) 17 gm PO DAILY PRN PRN Reason: Constipation Stop: 10/27/20 19:22 Potassium Chloride (Potassium Chloride 10 Meq Tabcr) 10 meq PO BID [facility] Stop: 10/27/20 20:59 Last Admin: 10/05/20 08:34 Dose: 10 meq Documented by: Risperidone (Risperidone Odt 0.5 Mg Soltab) 0.25 mg PO HS PRN PRN Reason: confusion/delirium/sleep Stop: 11/02/20 20:01 Sennosides (Senna 8.6 Mg Tab) 17.2 mg PO QAM [facility] Stop: 10/29/20 08:59 Last Admin: 10/05/20 08:31 Dose: Not Given Documented by: Trazodone HCl (Trazodone Hcl 50 Mg Tab) 50 mg PO HS PRN PRN Reason: sleep Stop: 10/27/20 19:22 Last Admin: 10/01/20 21:02 Dose: 50 mg Documented by: Vitamin B Complex (Vitamin B Complex Tab) 1 tab PO QAM [facility] Stop: 10/28/20 08:59 Last Admin: 10/05/20 08:29 Dose: 1 tab Documented by: Vitamin D (Cholecalciferol 1,000 Units 25 Mcg Tab) 2,000 units PO QAM [facility] Stop: 10/28/20 08:59 Last Admin: 10/05/20 08:31 Dose: 2,000 units Documented by: Zinc Sulfate (Zinc Sulfate 220 Mg Capsule) 220 mg PO QAM [facility] Stop: 10/28/20 08:59 Last Admin: 10/05/20 08:30 Dose: 220 mg Documented by: PG Care Time/CCT Total # of Minutes Spent Total Time Spent with Patient: Total time spent is greater than 50% in coordination of care (as documented) at patient's floor/unit and/or counseling patient: Coding Level of Care Code 43468 Subseq Hosp Care Lvl 3 Diagnoses Sacral fracture S32.10XA Encounter type: initial encounter Fracture type: closed Zone of sacrum fracture: unspecified portion of sacrum Left ankle sprain S93.402A Encounter type: initial encounter Involved ligament of ankle: unspecified ligament Pneumonia due to 2019 novel coronavirus U07.1; J12.89 Metabolic encephalopathy G93.41 Gastroesophageal reflux disease K21.9 (HFpEF) heart failure with preserved ejection fraction I50.31 Heart failure chronicity: acute Hypertension I10 Hypertension type: essential hypertension Abnormal finding on urinalysis R82.90 Chronic back pain M54.9; G89.29 Anemia D64.9 Anemia type: unspecified type 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 Follicular lymphoma type: unspecified follicular type Lymphoma site: unspecified region Thrombocytosis D47.3 DVT prophylaxis Z29.9 (1) (HFpEF) heart failure with preserved ejection fraction Heart failure chronicity: acute Qualified Code(s): I50.31 - Acute diastolic (congestive) heart failure (2) Anemia Anemia type: unspecified type Qualified Code(s): D64.9 - Anemia, unspecified (3) Follicular lymphoma Follicular lymphoma type: unspecified follicular type Lymphoma site: unspecified region Qualified Code(s): C82.90 - Follicular lymphoma, u nspecified, unspecified site (4) Sacral fracture Encounter type: initial encounter Fracture type: closed Zone of sacrum fracture: unspecified portion of sacrum Qualified Code(s): S32.10XA - Unspecified fracture of sacrum, initial encounter for closed fracture (5) Hypertension Hypertension type: essential hypertension Qualified Code(s): I10 - Essential (primary) hypertension (6) Left ankle sprain Encounter type: initial encounter Involved ligament of ankle: unspecified ligament Qualified Code(s): S93.402A - Sprain of unspecified ligament of left ankle, initial encounter
[2020-10-05] MEDS: FERROUS SULFATE 325 MG TAB PO SCH (12:19)
[2020-10-05] MEDS: oxyCODONE/ACETAMINOPHEN 5mg/325mg TAB PO PRN (15:44)
[2020-10-06] MEDS: oxyCODONE/ACETAMINOPHEN 5mg/325mg TAB PO PRN ×2 (01:41→14:28)
[2020-10-06 07:05] LABS: Eosinophils # (auto) 0.04 K/uL (0-0.5); Eosinophils % (auto) 0.4 %; Hemoglobin 8.5 g/dL (12.0-16.0); Immature Granulocytes # (auto) 0.07 K/uL (0.00-0.02); Immature Granulocytes % (auto) 0.8 %; Lymphocytes # (auto) 1.32 K/uL (1.2-3.4); Lymphocytes % (auto) 14.4 %; Mean Corpuscular Hemoglobin 27.7 pg (25-34); Mean Corpuscular Hgb Conc 31.5 g/dL (32-36); Mean Corpuscular Volume 87.9 fL (80-100); Mean Platelet Volume 9.3 fL (7.4-10.4); Monocytes # (auto) 0.92 K/uL (0.11-0.59); Neutrophils # (auto) 6.84 K/uL (1.4-6.5); Neutrophils % (auto) 74.4 %; Platelet Count 686 K/uL (130-400); RDW Coefficient of Variation 17.3 % (11.5-14.5); RDW Standard Deviation 54.8 fL (36.4-46.3); Red Blood Count 3.07 M/uL (4.2-5.4); White Blood Count 9.19 K/uL (4.8-10.8)
[2020-10-06 07:30] LABS: Albumin Level 2.3 gm/dl (3.4-5.0); BUN Creatinine Ratio 21.9 (10-20); Calcium 8.8 mg/dl (8.5-10.1); Creatinine Clr Calc Pharmacy 78.7 ml/min; Est GFR (African American) 103.5; Est GFR (Non-African American) 89.3
[2020-10-06 07:33] LABS: Albumin Globulin Ratio 0.7 (0.9-2); Bilirubin,Total 0.5 mg/dl (0.2-1); Globulin 3.5 gm/dl (2.5-4.0); Total Protein 5.8 gm/dl (6.4-8.2)
[2020-10-06] MEDS ORDERED: IRON SUCROSE 200 MG in 0.9 % SODIUM CHLORIDE 100 ML IV ONE (07:45)
[2020-10-06] MEDS: FERROUS SULFATE 325 MG TAB PO SCH (08:39)
[2020-10-06] MEDS: LACTOBACILLUS ACIDOPHILUS 1 GM PACK PO SCH ×3 (08:39→18:00)
[2020-10-06] MEDS: dexAMETHasone 6 MG in SYRINGE 0 ML IV SCH (08:39)
[2020-10-06] MEDS: PANTOprazole 40 MG TAB PO SCH ×2 (08:39→21:08)
[2020-10-06] MEDS: ZINC SULFATE 220 MG CAPSULE PO SCH (08:40)
[2020-10-06] MEDS: POTASSIUM CHLORIDE 10 MEQ TABCR PO SCH ×2 (08:40→21:09)
[2020-10-06] MEDS: DULoxetine HCL 60 MG CAP PO SCH (08:40)
[2020-10-06] MEDS: ASCORBIC ACID 500 MG TAB PO SCH ×2 (08:40→21:08)
[2020-10-06] MEDS: MULTIVITAMIN TAB PO SCH (08:40)
[2020-10-06] MEDS: LORATADINE 10 MG TAB PO SCH (08:40)
[2020-10-06] MEDS: GABAPENTIN 300 MG CAP PO SCH ×2 (08:40→21:08)
[2020-10-06] MEDS: CHOLECALCIFEROL 1,000 UNITS 25 MCG TAB PO SCH (08:41)
[2020-10-06] MEDS: ASPIRIN 81 MG ECTAB PO SCH (08:41)
[2020-10-06] MEDS: CALCIUM 600MG + VIT D 400 IU TAB PO SCH (08:41)
[2020-10-06] MEDS: VITAMIN B COMPLEX TAB PO SCH (08:41)
[2020-10-06] MEDS: DOCUSATE SODIUM 100 MG CAP PO SCH ×2 (08:41→21:08)
[2020-10-06] MEDS: SENNA 8.6 MG TAB PO SCH (08:42)
[2020-10-06] MEDS: ENOXAPARIN INJ 40 MG/0.4 ML SYR SQ SCH (08:42)
[2020-10-06] MEDS: LIDOCAINE 5% 1 PATCH TD SCH (08:42)
[2020-10-06] MEDS: DICLOFENAC SOD 1% GEL 100 GM TUBE EXT SCH ×4 (09:03→21:09)
--- NOTE | 2020-10-06 15:55 | Hospitalist Progress Note ---
Date of Service October 06, 2020 Assessment & Plan (1) Sacral fracture: nondisplaced on x-rays, s/p fall 10/02/20 in her room. no Rx needed other than pain control. 25-OH vit D level earlier this fall wnl. stable. plan for rehab at [facility] on Thursday (2) Left ankle sprain: fortunately no obvious fractures on x-rays. voltaren gel QID for pain. elevate. much improved past few days (3) Pneumonia due to 2019 novel coronavirus: Initial date of dx - 09/09/20. Rx during previous admission with 10-day course decadron, plasma, remdesivir. d/c to [facility]. Re-admitted on 09/27/20 due to recurrent fever, worsening cxr, etc. Repeat course of steroids & remdesivir initiated on 09/27/20 - thus, day #10 of decadron. Remdesivir course is complete. Repeat plasma given on 09/28/20. Received 7-day course of IV zosyn in the event this was a secondary bacterial pneumonia in setting of recent COVID. Zosyn stopped 10/03. titrated down to room air today will down grade out of the COVID unit to medical floor no need for negative pressure room as initial positive test was 09/09 at time of this admission, she had negative CTA chest. checked dopplers legs due to varicose veins, etc and these were NEGATIVE (4) Metabolic encephalopathy: appears to be resolved for a few days 2nd to COVID delirium, hospital delirium, potentially steroids, other factors. Avoid benzos. reinforce sleep/wake cycle. ordered low-dose antipsychotic at for prn use. Rx for VRE UTI during prior admission. but grew VRE again a few days ago. and u/a again dirty. await culture. recurrent UTI could contribute to encephalopathy, treating with Daptomycin (5) Gastroesophageal reflux disease: Continue protoinix bid (6) (HFpEF) heart failure with preserved ejection fraction: compensated no evidence volume overload lasix prn (7) Hypertension: controlled without meds (8) Abnormal finding on urinalysis: urine cx grew VRE we treated her for VRE UTI in early September with 7-day course of daptomycin she may simply be colonized now symptomatic for UTI most recent culture with no growth daptomycin started 10/04, continue until discharge on Thursday (9) Chronic back pain: Pain pump in place Refilled on 10/[address] Erickson from [facility] pain management dilaudid PO prn oxycodone PO prn (10) Anemia: s/p 2 units PRBCs at time of admission H/H trended down slightly to 8.5 today, no signs of bleeding spoke with Dr Verde - in light of rising platelets he advised repeating her iron studies iron low at 32, transferrin 132 will give Venofer today, likely a degree of chronic disease anemia as well ferritin level recently elevated due to acute phase reactant (11) Follicular lymphoma: dx 12/2017 per records from the [facility] a port was to be placed this month by [facility] gen surg but never took place because of recurrent infections (Urosepsis, COVID, etc) platelets are rising - due to lymphoma?? reactive to her infectious processes? med side effect? suspect REACTIVE platelets appear to have peaked and coming down repeat CBC am (12) Thrombocytosis: worsening, but appears to have peaked three days ago repeat CBC in am etiology? send peripheral smear check Fe studies spoke with Dr Verde about this - believes it is reactive cont to monitor (13) DVT prophylaxis: Lovenox 40mg daily cont PT/OT , [facility] Thursday as long as they have a bed Admission and Anticipated Discharge Date Admission Date: September 27, 2020 Subjective patient doing well today, no acute issues, breathing well on room air minimal cough, better than yesterday she is eating well admits to some hip pain ever since her fall she is interested in going to rehab today, explained they cannot accept her until Thursday will move out of the COVID unit as her initial positive test was 09/09 and she is on room air, no longer needs negative pressure room Review of Systems Review of Systems: All systems reviewed & are unremarkable except as noted in Subjective Musculoskeletal: + back pain and + joint pain (hips) Physical Exam Constitutional: well developed, + thin and + frail appearing; no acute distress Neck: trachea midline, no thyromegaly Respiratory: normal respiratory effort, lungs clear to auscultation Cardiovascular: RRR, no murmur, no edema Gastrointestinal (Abdomen): normal bowel sounds, soft, nontender, no hepatosplenomegaly Musculoskeletal: Spine: + limited thoraco-lumbar ROM and + scoliosis Extremities: extremities normal to inspection and + abnormal strength (generailzed weakness) Skin: no rashes, warm and dry Neurologic: patellar DTR's 2+ bilat, sensation intact and PERRL, EOMI, accommodation nl, no face palsy, no dysarthria Psychiatric: A+Ox3, euthymic affect Lymphatic: no cervical or axillary lymphadenopathy Results & Data Results & Data ([facility]) Vital Signs (Past 12 Hours) Vital Signs Temp Pulse Pulse Resp BP Pulse Ox 10/06/20 08:00 36.7 C 84 100 H 16 114/78 94 Laboratory Results Laboratory Results - last 24 hr 10/06/20 10/06/20 06:27 06:27 WBC 9.19 RBC 3.07 L Hgb 8.5 L Hct 27.0 L MCV 87.9 MCH 27.7 MCHC 31.5 L RDW Std Deviation 54.8 H RDW Coeff of Inge 17.3 H Plt Count 686 H MPV 9.3 Immature Gran % (Auto) 0.8 Neut % (Auto) 74.4 Lymph % (Auto) 14.4 [place] % (Auto) 10.0 Eos % (Auto) 0.4 Baso % (Auto) 0.0 Neut # (Auto) 6.84 H Lymph # (Auto) 1.32 [place] # (Auto) 0.92 H Eos # (Auto) 0.04 Baso # (Auto) 0.00 Immature Gran # (Auto) 0.07 H Sodium 137 Potassium 4.0 Chloride 104 Carbon Dioxide 30 Anion Gap 3.0 BUN 13 Creatinine 0.61 Est Cr Clr Drug Dosing 78.7 Est GFR ( Amer) 103.5 Est GFR (Non-Af Amer) 89.3 BUN/Creatinine Ratio 21.9 H Glucose 85 Calcium 8.8 Total Bilirubin 0.5 AST 12 L ALT 18 Alkaline Phosphatase 85 Total Protein 5.8 L Albumin 2.3 L Globulin 3.5 Albumin/Globulin Ratio 0.7 L Medications Administered Current Inpatient Medications Acetaminophen (Acetaminophen 325 Mg Tab) 650 mg PO Q4H PRN PRN Reason: Pain or Fever Stop: 10/27/20 19:22 Last Admin: 10/05/20 21:17 Dose: 650 mg Documented by: Al Hydrox/Mg Hydrox/Simethicone (Aluminum/Magnesium Susp 30 Ml Udc) 15 ml PO Q4H PRN PRN Reason: Dyspepsia Stop: 12/19/20 19:22 Albuterol (Albuterol Hfa 8 Gm Inhaler) 1 puffs INH QIDR PRN PRN Reason: Shortness Of Breath Stop: 10/27/20 19:45 Ascorbic Acid (Ascorbic Acid 500 Mg Tab) 500 mg PO BID [facility] Stop: 10/27/20 20:59 Last Admin: 10/06/20 08:40 Dose: 500 mg Documented by: Aspirin (Aspirin 81 Mg Ectab) 81 mg PO QAM [facility] Stop: 10/28/20 08:59 Last Admin: 10/06/20 08:41 Dose: 81 mg Documented by: Diclofenac Sodium (Diclofenac Sod 1% Gel 100 Gm Tube) 4 gm EXT QID [facility] Stop: 11/01/20 20:59 Last Admin: 10/06/20 12:10 Dose: 4 gm Documented by: Docusate Sodium (Docusate Sodium 100 Mg Cap) 100 mg PO BID [facility] Stop: 10/27/20 20:59 Last Admin: 10/06/20 08:41 Dose: Not Given Documented by: Duloxetine HCl (Duloxetine Hcl 60 Mg Cap) 120 mg PO QAM [facility] Stop: 10/28/20 08:59 Last Admin: 10/06/20 08:40 Dose: 120 mg Documented by: Enoxaparin Sodium (Enoxaparin Inj 40 Mg/0.4 Ml Syr) 40 mg SQ QAM [facility] Stop: 11/05/20 08:59 Last Admin: 10/06/20 08:42 Dose: 40 mg Documented by: Ferrous Sulfate (Ferrous Sulfate 325 Mg Tab) 325 mg PO QAM [facility] Stop: 10/28/20 08:59 Last Admin: 10/06/20 08:39 Dose: 325 mg Documented by: Fluticasone Propionate (Fluticasone Propionate Na Spr 16 Gm Btl) 2 sprays NA DAILY PRN PRN Reason: allergy symptoms Stop: 10/27/20 19:22 Last Admin: 10/05/20 00:31 Dose: 2 sprays Documented by: Gabapentin (Gabapentin 300 Mg Cap) 300 mg PO BID [facility] Stop: 10/27/20 20:59 Last Admin: 10/06/20 08:40 Dose: 300 mg Documented by: Hydromorphone HCl (Hydromorphone Hcl 2 Mg Tab) 2 mg PO Q6H PRN PRN Reason: Breakthrough Pain Stop: 10/11/20 19:22 Sodium Chloride (Nss) 250 mls @ 15 mls/hr IV .Q08H36M PRN PRN Reason: For Transfusion Stop: 10/27/20 19:22 Dexamethasone 6 mg/ Syringe 1.5 mls @ 1 mls/min IV Q24H [facility] Stop: 11/02/20 07:59 Last Admin: 10/06/20 08:39 Dose: 1 mls/min Documented by: Daptomycin 375 mg/ Syringe 7.5 mls @ 3.75 mls/min IV Q24H [facility]; Protocol Stop: 10/14/20 00:59 Last Admin: 10/05/20 23:36 Dose: 3.75 mls/min Documented by: Lactobacillus Acidophilus (Lactobacillus Acidophilus 1 Gm Pack) 1 gm PO TIDM [facility] Stop: 11/01/20 07:59 Last Admin: 10/06/20 12:10 Dose: 1 gm Documented by: Levalbuterol HCl (Levalbuterol Tartrate 15 Gm Hfa.Aer.Ad) 1 puffs INH QIDR PRN PRN Reason: Shortness Of Breath Stop: 10/27/20 19:46 Lidocaine (Lidocaine 5% 1 Patch) 3 patch TD DAILY [facility] Stop: 10/30/20 08:59 Last Admin: 10/06/20 08:42 Dose: 3 patch Documented by: Loratadine (Loratadine 10 Mg Tab) 10 mg PO QAM [facility] Stop: 10/28/20 08:59 Last Admin: 10/06/20 08:40 Dose: 10 mg Documented by: Magnesium Hydroxide (Magnesium Hydroxide Susp 30 Ml Udc) 30 ml PO Q12H PRN PRN Reason: Constipation Stop: 10/27/20 19:22 Melatonin (Melatonin 3 Mg Tab) 6 mg PO HS PRN PRN Reason: Sleep Stop: 10/27/20 19:22 Last Admin: 10/05/20 21:17 Dose: 6 mg Documented by: Miscellaneous (Remove Lidoderm Patch) 1 ea N/A HS [facility] Stop: 10/30/20 20:59 Last Admin: 10/05/20 21:18 Dose: 1 ea Documented by: Miscellaneous Information (Daptomycin Consult Active) 1 ea N/A UD PRN PRN Reason: Consult Stop: 11/02/20 23:50 Multivitamins (Multivitamin Tab) 2 tab PO QAM [facility] Stop: 10/28/20 08:59 Last Admin: 10/06/20 08:40 Dose: 2 tab Documented by: Multivitamins/Minerals (Calcium 600mg + Vit D 400 Iu Tab) 1 tab PO QAM [facility] Stop: 10/28/20 08:59 Last Admin: 10/06/20 08:41 Dose: 1 tab Documented by: Ondansetron HCl (Ondansetron Inj 2 Mg/Ml 2 Ml Vial) 4 mg IV Q6H PRN PRN Reason: Nausea Stop: 10/27/20 19:22 Oxycodone/Acetaminophen (Oxycodone/Acetaminophen 5mg/325mg Tab) 1 tab PO Q4H PRN PRN Reason: Pain Stop: 10/15/20 14:34 Last Admin: 10/06/20 01:41 Dose: 1 tab Documented by: Pantoprazole Sodium (Pantoprazole 40 Mg Tab) 40 mg PO BID [facility] Stop: 10/28/20 20:59 Last Admin: 10/06/20 08:39 Dose: 40 mg Documented by: Phenazopyridine HCl (Phenazopyridine Hcl 200 Mg Tab) 200 mg PO TID PRN PRN Reason: Bladder pain Stop: 11/02/20 23:52 Polyethylene Glycol (Polyethylene (Miralax) 17 Gm Pack) 17 gm PO DAILY PRN PRN Reason: Constipation Stop: 10/27/20 19:22 Potassium Chloride (Potassium Chloride 10 Meq Tabcr) 10 meq PO BID [facility] Stop: 10/27/20 20:59 Last Admin: 10/06/20 08:40 Dose: 10 meq Documented by: Risperidone (Risperidone Odt 0.5 Mg Soltab) 0.25 mg PO HS PRN PRN Reason: confusion/delirium/sleep Stop: 11/02/20 20:01 Sennosides (Senna 8.6 Mg Tab) 17.2 mg PO QAM [facility] Stop: 10/29/20 08:59 Last Admin: 10/06/20 08:42 Dose: Not Given Documented by: Trazodone HCl (Trazodone Hcl 50 Mg Tab) 50 mg PO HS PRN PRN Reason: sleep Stop: 10/27/20 19:22 Last Admin: 10/01/20 21:02 Dose: 50 mg Documented by: Vitamin B Complex (Vitamin B Complex Tab) 1 tab PO QAM [facility] Stop: 10/28/20 08:59 Last Admin: 10/06/20 08:41 Dose: 1 tab Documented by: Vitamin D (Cholecalciferol 1,000 Units 25 Mcg Tab) [facility] Stop: 10/28/20 08:59 Last Admin: 10/06/20 08:41 Dose: 2,000 units Documented by: Zinc Sulfate (Zinc Sulfate 220 Mg Capsule) [facility] Stop: 10/28/20 08:59 Last Admin: 10/06/20 08:40 Dose: 220 mg Documented by: PG Care Time/CCT Total # of Minutes Spent Total Time Spent with Patient: Total time spent is greater than 50% in coordination of care (as documented) at patient's floor/unit and/or counseling patient: Coding Level of Care Code 20000 Subseq Hosp Care Lvl 3 Diagnoses Sacral fracture S32.10XA Encounter type: initial encounter Fracture type: closed Zone of sacrum fracture: unspecified portion of sacrum Left ankle sprain S93.402A Encounter type: initial encounter Involved ligament of ankle: unspecified ligament Pneumonia due to 2019 novel coronavirus U07.1; J12.89 Metabolic encephalopathy G93.41 Gastroesophageal reflux disease K21.9 (HFpEF) heart failure with preserved ejection fraction I50.31 Heart failure chronicity: acute Hypertension I10 Hypertension type: essential hypertension Abnormal finding on urinalysis R82.90 Chronic back pain M54.9; G89.29 Anemia D64.9 Anemia type: unspecified type 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 Follicular lymphoma type: unspecified follicular type Lymphoma site: unspecified region Thrombocytosis D47.3 DVT prophylaxis Z29.9 (1) (HFpEF) heart failure with preserved ejection fraction Heart failure chronicity: acute Qualified Code(s): I50.31 - Acute diastolic (congestive) heart failure (2) Anemia Anemia type: unspecified type Qualified Code(s): D64.9 - Anemia, unspecified (3) Follicular lymphoma Follicular lymphoma type: unspecified follicular type Lymphoma site: unspecified region Qualified Code(s): C82.90 - Follicular lymphoma, unspecified, unspecified site (4) Sacral fracture Encounter type: initial encounter Fracture type: closed Zone of sacrum fracture: unspecified portion of sacrum Qualified Code(s): S32.10XA - Unspecified fracture of sacrum, initial encounter for closed fracture (5) Hypertension Hypertension type: essential hypertension Qualified Code(s): I10 - Essential (primary) hypertension (6) Left ankle sprain Encounter type: initial encounter Involved ligament of ankle: unspecified ligament Qualified Code(s): S93.402A - Sprain of unspecified ligament of left ankle, initial encounter
[2020-10-07] MEDS: DAPTOmycin 375 MG in SYRINGE 0 ML IV SCH (00:56)
[2020-10-07] MEDS: dexAMETHasone 6 MG in SYRINGE 0 ML IV SCH (09:35)
[2020-10-07] MEDS: GABAPENTIN 300 MG CAP PO SCH ×2 (09:39→21:41)
[2020-10-07] MEDS: DOCUSATE SODIUM 100 MG CAP PO SCH ×2 (09:39→21:41)
[2020-10-07] MEDS: ASPIRIN 81 MG ECTAB PO SCH (09:40)
[2020-10-07] MEDS: CALCIUM 600MG + VIT D 400 IU TAB PO SCH (09:40)
[2020-10-07] MEDS: DULoxetine HCL 60 MG CAP PO SCH (09:40)
[2020-10-07] MEDS: FERROUS SULFATE 325 MG TAB PO SCH (09:41)
[2020-10-07] MEDS: LACTOBACILLUS ACIDOPHILUS 1 GM PACK PO SCH ×3 (09:41→17:46)
[2020-10-07] MEDS: SENNA 8.6 MG TAB PO SCH (09:41)
[2020-10-07] MEDS: ZINC SULFATE 220 MG CAPSULE PO SCH (09:42)
[2020-10-07] MEDS: VITAMIN B COMPLEX TAB PO SCH (09:42)
[2020-10-07] MEDS: LORATADINE 10 MG TAB PO SCH (09:43)
[2020-10-07] MEDS: MULTIVITAMIN TAB PO SCH (09:43)
[2020-10-07] MEDS: CHOLECALCIFEROL 1,000 UNITS 25 MCG TAB PO SCH (09:44)
[2020-10-07] MEDS: ASCORBIC ACID 500 MG TAB PO SCH ×2 (09:45→21:42)
[2020-10-07] MEDS: LIDOCAINE 5% 1 PATCH TD SCH (09:45)
[2020-10-07] MEDS: PANTOprazole 40 MG TAB PO SCH ×2 (09:45→21:42)
[2020-10-07] MEDS: DICLOFENAC SOD 1% GEL 100 GM TUBE EXT SCH ×4 (09:45→21:39)
[2020-10-07] MEDS: POTASSIUM CHLORIDE 10 MEQ TABCR PO SCH ×2 (09:46→21:42)
[2020-10-07] MEDS: ENOXAPARIN INJ 40 MG/0.4 ML SYR SQ SCH (09:47)
[2020-10-07] MEDS: FLUTICASONE PROPIONATE NA SPR 16 GM BTL PRN (09:49)
--- NOTE | 2020-10-07 16:48 | Hospitalist Progress Note ---
Date of Service October 07, 2020 Assessment & Plan (1) Sacral fracture: nondisplaced on x-rays, s/p fall 10/02/20 in her room. no Rx needed other than pain control. 25-OH vit D level earlier this fall wnl. stable. plan for rehab at [facility] on Thursday (2) Left ankle sprain: fortunately no obvious fractures on x-rays. voltaren gel QID for pain. elevate. much improved past few days (3) Pneumonia due to 2019 novel coronavirus: Initial date of dx - 09/09/20. Rx during previous admission with 10-day course decadron, plasma, remdesivir. d/c to [facility]. Re-admitted on 09/27/20 due to recurrent fever, worsening cxr, etc. Repeat course of steroids & remdesivir initiated on 09/27/20 - completed decadron on 10/06 Remdesivir course is complete. Repeat plasma given on 09/28/20. Received 7-day course of IV zosyn in the event this was a secondary bacterial pneumonia in setting of recent COVID. Zosyn stopped 10/03. titrated down to room air for a few days, no respiratory distress at all will down grade out of the COVID unit to medical floor no need for negative pressure room as initial positive test was 09/09 at time of this admission, she had negative CTA chest. checked dopplers legs due to varicose veins, etc and these were NEGATIVE (4) Metabolic encephalopathy: appears to be resolved for a few days 2nd to COVID delirium, hospital delirium, potentially steroids, other factors. Avoid benzos. reinforce sleep/wake cycle. ordered low-dose antipsychotic at for prn use. Rx for VRE UTI during prior admission. but grew VRE again a few days ago. and u/a again dirty. repeat culture with 3 types of prem, mixed, likely contaminant (5) Gastroesophageal reflux disease: Continue protonix bid (6) (HFpEF) heart failure with preserved ejection fraction: compensated no evidence volume overload lasix prn (7) Hypertension: controlled without meds (8) Abnormal finding on urinalysis: urine cx grew VRE we treated her for VRE UTI in early September with 7-day course of daptomycin she may simply be colonized now symptomatic for UTI most recent culture with no growth daptomycin started 10/04, continue until discharge on Thursday doubt that this is legitimate infection, likely colonized, has grown VRE numerous times in the past (9) Chronic back pain: Pain pump in place Refilled on 10/[address] Erickson from [facility] pain management dilaudid PO prn oxycodone PO prn (10) Anemia: s/p 2 units PRBCs at time of admission H/H trended down slightly to 8.5 today, no signs of bleeding spoke with Dr Verde - in light of rising platelets he advised repeating her iron studies iron low at 32, transferrin 132 gave Venofer on 10/06, likely a degree of chronic disease anemia as well ferritin level recently elevated due to acute phase reactant (11) Follicular lymphoma: dx 12/2017 per records from the [facility], [place] a port was to be placed this month by [facility] gen surg but never took place because of recurrent infections (Urosepsis, COVID, etc) platelets are rising - due to lymphoma?? reactive to her infectious processes? med side effect? suspect REACTIVE platelets appear to have peaked and coming down follow up with Dr. Verde in a few weeks (12) Thrombocytosis: worsening, but appears to have peaked three days ago repeat CBC in am etiology? send peripheral smear check Fe studies spoke with Dr Verde about this - believes it is reactive (13) DVT prophylaxis: Lovenox 40mg daily cont PT/OT , [facility] Thursday as long as they have a bed Admission and Anticipated Discharge Date Admission Date: September 27, 2020 Subjective patient feeling well, eating well discussed the temperature of 37.7 this morning, she did not feel warm, no new symptoms to suggest infection she is eating well, no dyspnea, no cough, no dysuria, no abdominal pain she is ready to go to rehab tomorrow, looking forward to it Review of Systems Review of Systems: All systems reviewed & are unremarkable except as noted in Subjective Musculoskeletal: + back pain and + joint pain (pain in hips) Physical Exam Constitutional: well developed, + thin and + frail appearing; no acute distress Neck: trachea midline, no thyromegaly Respiratory: normal respiratory effort, lungs clear to auscultation Cardiovascular: RRR, no murmur, no edema Gastrointestinal (Abdomen): normal bowel sounds, soft, nontender, no hepatosplenomegaly Musculoskeletal: Spine: + limited thoraco-lumbar ROM and + scoliosis Extremities: extremities normal to inspection and + abnormal strength (generailzed weakness) Skin: no rashes, warm and dry Neurologic: patellar DTR's 2+ bilat, sensation intact and PERRL, EOMI, accommodation nl, no face palsy, no dysarthria Psychiatric: A+Ox3, euthymic affect Lymphatic: no cervical or axillary lymphadenopathy Results & Data Results & Data ([facility]) Vital Signs (Past 12 Hours) Vital Signs Temp Pulse Resp BP Pulse Ox 10/07/20 15:51 36.8 C 106 H 16 93/61 L 94 10/07/20 13:44 36.9 C 10/07/20 08:28 37.7 C H 113 H 18 102/69 93 Medications Administered Current Inpatient Medications Acetaminophen (Acetaminophen 325 Mg Tab) 650 mg PO Q4H PRN PRN Reason: Pain or Fever Stop: 10/27/20 19:22 Last Admin: 10/05/20 21:17 Dose: 650 mg Documented by: Al Hydrox/Mg Hydrox/Simethicone (Aluminum/Magnesium Susp 30 Ml Udc) 15 ml PO Q4H PRN PRN Reason: Dyspepsia Stop: 10/27/20 19:22 Albuterol (Albuterol Hfa 8 Gm Inhaler) 1 puffs INH QIDR PRN PRN Reason: Shortness Of Breath Stop: 10/27/20 19:45 Ascorbic Acid (Ascorbic Acid 500 Mg Tab) 500 mg PO BID [facility] Stop: 10/27/20 20:59 Last Admin: 10/07/20 09:45 Dose: 500 mg Documented by: Aspirin (Aspirin 81 Mg Ectab) 81 mg PO QAM [facility] Stop: 10/28/20 08:59 Last Admin: 10/07/20 09:40 Dose: 81 mg Documented by: Diclofenac Sodium (Diclofenac Sod 1% Gel 100 Gm Tube) 4 gm EXT QID [facility] Stop: 11/01/20 20:59 Last Admin: 10/07/20 12:21 Dose: 4 gm Documented by: Docusate Sodium (Docusate Sodium 100 Mg Cap) 100 mg PO BID [facility] Stop: 10/27/20 20:59 Last Admin: 10/07/20 09:39 Dose: 100 mg Documented by: Duloxetine HCl (Duloxetine Hcl 60 Mg Cap) 120 mg PO QAM [facility] Stop: 10/28/20 08:59 Last Admin: 10/07/20 09:40 Dose: 120 mg Documented by: Enoxaparin Sodium (Enoxaparin Inj 40 Mg/0.4 Ml Syr) 40 mg SQ QAM [facility] Stop: 11/05/20 08:59 Last Admin: 10/07/20 09:47 Dose: 40 mg Documented by: Ferrous Sulfate (Ferrous Sulfate 325 Mg Tab) 325 mg PO QAM [facility] Stop: 10/28/20 08:59 Last Admin: 10/07/20 09:41 Dose: 325 mg Documented by: Fluticasone Propionate (Fluticasone Propionate Na Spr 16 Gm Btl) 2 sprays NA DAILY PRN PRN Reason: allergy symptoms Stop: 10/27/20 19:22 Last Admin: 10/05/20 00:31 Dose: 2 sprays Documented by: Gabapentin (Gabapentin 300 Mg Cap) 300 mg PO BID [facility] Stop: 10/27/20 20:59 Last Admin: 10/07/20 09:39 Dose: 300 mg Documented by: Hydromorphone HCl (Hydromorphone Hcl 2 Mg Tab) 2 mg PO Q6H PRN PRN Reason: Breakthrough Pain Stop: 10/11/20 19:22 Sodium Chloride (Nss) 250 mls @ 15 mls/hr IV .[id number] PRN PRN Reason: For Transfusion Stop: 10/27/20 19:22 Dexamethasone 6 mg/ Syringe 1.5 mls @ 1 mls/min IV Q24H [facility] Stop: 11/02/20 07:59 Last Admin: 10/07/20 09:35 Dose: 1 mls/min Documented by: Daptomycin 375 mg/ Syringe 7.5 mls @ 3.75 mls/min IV Q24H [facility]; Protocol Stop: 10/14/20 00:59 Last Admin: 10/07/20 00:56 Dose: 3.75 mls/min Documented by: Lactobacillus Acidophilus (Lactobacillus Acidophilus 1 Gm Pack) 1 gm PO TIDM [facility] Stop: 11/01/20 07:59 Last Admin: 10/07/20 12:17 Dose: 1 gm Documented by: Levalbuterol HCl (Levalbuterol Tartrate 15 Gm Hfa.Aer.Ad) 1 puffs INH QIDR PRN PRN Reason: Shortness Of Breath Stop: 10/27/20 19:46 Lidocaine (Lidocaine 5% 1 Patch) 3 patch TD DAILY [facility] Stop: 10/30/20 08:59 Last Admin: 10/07/20 09:45 Dose: 3 patch Documented by: Loratadine (Loratadine 10 Mg Tab) 10 mg PO QAM [facility] Stop: 10/28/20 08:59 Last Admin: 10/07/20 09:43 Dose: 10 mg Documented by: Magnesium Hydroxide (Magnesium Hydroxide Susp 30 Ml Udc) 30 ml PO Q12H PRN PRN Reason: Constipation Stop: 10/27/20 19:22 Melatonin (Melatonin 3 Mg Tab) 6 mg PO HS PRN PRN Reason: Sleep Stop: 10/27/20 19:22 Last Admin: 10/05/20 21:17 Dose: 6 mg Documented by: Miscellaneous (Remove Lidoderm Patch) 1 ea N/A HS [facility] Stop: 10/30/20 20:59 Last Admin: 10/06/20 21:09 Dose: 1 ea Documented by: Miscellaneous Information (Daptomycin Consult Active) 1 ea N/A UD PRN PRN Reason: Consult Stop: 11/02/20 23:50 Multivitamins (Multivitamin Tab) 2 tab PO QAM [facility] Stop: 10/28/20 08:59 Last Admin: 10/07/20 09:43 Dose: 2 tab Documented by: Multivitamins/Minerals (Calcium 600mg + Vit D 400 Iu Tab) 1 tab PO QAM [facility] Stop: 10/28/20 08:59 Last Admin: 10/07/20 09:40 Dose: 1 tab Documented by: Ondansetron HCl (Ondansetron Inj 2 Mg/Ml 2 Ml Vial) 4 mg IV Q6H PRN PRN Reason: Nausea Stop: 10/27/20 19:22 Oxycodone/Acetaminophen (Oxycodone/Acetaminophen 5mg/325mg Tab) 1 tab PO Q4H PRN PRN Reason: Pain Stop: 10/15/20 14:34 Last Admin: 10/06/20 14:28 Dose: 1 tab Documented by: Pantoprazole Sodium (Pantoprazole 40 Mg Tab) 40 mg PO BID [facility] Stop: 10/28/20 20:59 Last Admin: 10/07/20 09:45 Dose: 40 mg Documented by: Phenazopyridine HCl (Phenazopyridine Hcl 200 Mg Tab) 200 mg PO TID PRN PRN Reason: Bladder pain Stop: 11/02/20 23:52 Polyethylene Glycol (Polyethylene (Miralax) 17 Gm Pack) 17 gm PO DAILY PRN PRN Reason: Constipation Stop: 10/27/20 19:22 Potassium Chloride (Potassium Chloride 10 Meq Tabcr) 10 meq PO BID [facility] Stop: 10/27/20 20:59 Last Admin: 10/07/20 09:46 Dose: 10 meq Documented by: Risperidone (Risperidone Odt 0.5 Mg Soltab) 0.25 mg PO HS PRN PRN Reason: confusion/delirium/sleep Stop: 11/02/20 20:01 Sennosides (Senna 8.6 Mg Tab) 17.2 mg PO QAM [facility] Stop: 10/29/20 08:59 Last Admin: 10/07/20 09:41 Dose: 17.2 mg Documented by: Trazodone HCl (Trazodone Hcl 50 Mg Tab) 50 mg PO HS PRN PRN Reason: sleep Stop: 10/27/20 19:22 Last Admin: 10/01/20 21:02 Dose: 50 mg Documented by: Vitamin B Complex (Vitamin B Complex Tab) 1 tab PO QAM [facility] Stop: 10/28/20 08:59 Last Admin: 10/07/20 09:42 Dose: 1 tab Documented by: Vitamin D (Cholecalciferol 1,000 Units 25 Mcg Tab) 2,000 units PO QAM [facility] Stop: 10/28/20 08:59 Last Admin: 10/07/20 09:44 Dose: 2,000 units Documented by: Zinc Sulfate (Zinc Sulfate 220 Mg Capsule) 220 mg PO QAM [facility] Stop: 10/28/20 08:59 Last Admin: 10/07/20 09:42 Dose: 220 mg Documented by: PG Care Time/CCT Total # of Minutes Spent Total Time Spent with Patient: Total time spent is greater than 50% in coordination of care (as documented) at patient's floor/unit and/or counseling patient: Coding Level of Care Code 83406 Subseq Hosp Care Lvl 2 Diagnoses Sacral fracture S32.10XA Encounter type: initial encounter Fracture type: closed Zone of sacrum fracture: unspecified portion of sacrum Left ankle sprain S93.402A Encounter type: initial encounter Involved ligament of ankle: unspecified ligament Pneumonia due to 2019 novel coronavirus U07.1; J12.89 Metabolic encephalopathy G93.41 Gastroesophageal reflux disease K21.9 (HFpEF) heart failure with preserved ejection fraction I50.31 Heart failure chronicity: acute Hypertension I10 Hypertension type: essential hypertension Abnormal finding on urinalysis R82.90 Chronic back pain M54.9; G89.29 Anemia D64.9 Anemia type: unspecified type 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 Follicular lymphoma type: unspecified follicular type Lymphoma site: unspecified region Thrombocytosis D47.3 DVT prophylaxis Z29.9 (1) (HFpEF) heart failure with preserved ejection fraction Heart failure chronicity: acute Qualified Code(s): I50.31 - Acute diastolic (congestive) heart failure (2) Anemia Anemia type: unspecified type Qualified Code(s): D64.9 - Anemia, unspecified (3) Follicular lymphoma Follicular lymphoma type: unspecified follicular type Lymphoma site: unspecified region Qualified Code(s): C82.90 - Follicular lymphoma, unspecified, unspecified site (4) Sacral fracture Encounter type: initial encounter Fracture type: closed Zone of sacrum fracture: unspecified portion of sacrum Qualified Code(s): S32.10XA - Unspecified fracture of sacrum, initial encounter for closed fracture (5) Hypertension Hypertension type: essential hypertension Qualified Code(s): I10 - Essential (primary) hypertension (6) Left ankle sprain Encounter type: initial encounter Involved ligament of ankle: unspecified ligament Qualified Code(s): S93.402A - Sprain of unspecified ligament of left ankle, initial encounter
[2020-10-08] MEDS: DAPTOmycin 375 MG in SYRINGE 0 ML IV SCH (00:35)
[2020-10-08] MEDS: ENOXAPARIN INJ 40 MG/0.4 ML SYR SQ SCH (08:37)
[2020-10-08] MEDS: dexAMETHasone 6 MG in SYRINGE 0 ML IV SCH (08:38)
[2020-10-08] MEDS: LIDOCAINE 5% 1 PATCH TD SCH (08:38)
[2020-10-08] MEDS: MULTIVITAMIN TAB PO SCH (08:39)
[2020-10-08] MEDS: LACTOBACILLUS ACIDOPHILUS 1 GM PACK PO SCH (08:39)
[2020-10-08] MEDS: DICLOFENAC SOD 1% GEL 100 GM TUBE EXT SCH (08:39)
[2020-10-08] MEDS: SENNA 8.6 MG TAB PO SCH (08:40)
[2020-10-08] MEDS: DOCUSATE SODIUM 100 MG CAP PO SCH (08:40)
[2020-10-08] MEDS: DULoxetine HCL 60 MG CAP PO SCH (08:41)
[2020-10-08] MEDS: ZINC SULFATE 220 MG CAPSULE PO SCH (08:41)
[2020-10-08] MEDS: CALCIUM 600MG + VIT D 400 IU TAB PO SCH (08:42)
[2020-10-08] MEDS: ASPIRIN 81 MG ECTAB PO SCH (08:42)
[2020-10-08] MEDS: GABAPENTIN 300 MG CAP PO SCH (08:42)
[2020-10-08] MEDS: CHOLECALCIFEROL 1,000 UNITS 25 MCG TAB PO SCH (08:42)
[2020-10-08] MEDS: VITAMIN B COMPLEX TAB PO SCH (08:42)
[2020-10-08] MEDS: FERROUS SULFATE 325 MG TAB PO SCH (08:42)
[2020-10-08] MEDS: LORATADINE 10 MG TAB PO SCH (08:42)
[2020-10-08] MEDS: PANTOprazole 40 MG TAB PO SCH (08:42)
[2020-10-08] MEDS: ASCORBIC ACID 500 MG TAB PO SCH (08:43)
[2020-10-08] MEDS: POTASSIUM CHLORIDE 10 MEQ TABCR PO SCH (08:44)
--- NOTE | 2020-10-08 09:13 | Hospitalist Progress Note ---
Date of Service October 08, 2020 Assessment & Plan (1) Sacral fracture: nondisplaced on x-rays, s/p fall 10/02/20 in her room. no Rx needed other than pain control. 25-OH vit D level earlier this fall wnl. stable. plan for rehab at [facility] on Thursday (2) Left ankle sprain: fortunately no obvious fractures on x-rays. voltaren gel QID for pain. elevate. much improved past few days (3) Pneumonia due to 2019 novel coronavirus: Initial date of dx - 09/09/20. Rx during previous admission with 10-day course decadron, plasma, remdesivir. d/c to [facility]. Re-admitted on 09/27/20 due to recurrent fever, worsening cxr, etc. Repeat course of steroids & remdesivir initiated on 09/27/20 - completed decadron on 10/06 Remdesivir course is complete. Repeat plasma given on 09/28/20. Received 7-day course of IV zosyn in the event this was a secondary bacterial pneumonia in setting of recent COVID. Zosyn stopped 10/03. titrated down to room air for a few days, no respiratory distress at all will down grade out of the COVID unit to medical floor no need for negative pressure room as initial positive test was 09/09 at time of this admission, she had negative CTA chest. checked dopplers legs due to varicose veins, etc and these were NEGATIVE (4) Metabolic encephalopathy: appears to be resolved for a few days 2nd to COVID delirium, hospital delirium, potentially steroids, other factors. Avoid benzos. reinforce sleep/wake cycle. ordered low-dose antipsychotic at for prn use. Rx for VRE UTI during prior admission. but grew VRE again a few days ago. and u/a again dirty. repeat culture with 3 types of prem, mixed, likely contaminant (5) Gastroesophageal reflux disease: Continue protonix bid (6) (HFpEF) heart failure with preserved ejection fraction: compensated no evidence volume overload lasix prn (7) Hypertension: controlled without meds (8) Abnormal finding on urinalysis: urine cx grew VRE we treated her for VRE UTI in early September with 7-day course of daptomycin she may simply be colonized now symptomatic for UTI most recent culture with no growth daptomycin started 10/04, continue until discharge on Thursday doubt that this is legitimate infection, likely colonized, has grown VRE numerous times in the past (9) Chronic back pain: Pain pump in place Refilled on 10/[address] Erickson from [facility] pain management dilaudid PO prn oxycodone PO prn (10) Anemia: s/p 2 units PRBCs at time of admission H/H trended down slightly to 8.5 today, no signs of bleeding spoke with Dr Verde - in light of rising platelets he advised repeating her iron studies iron low at 32, transferrin 132 gave Venofer on 10/06, likely a degree of chronic disease anemia as well ferritin level recently elevated due to acute phase reactant (11) Follicular lymphoma: dx 12/2017 per records from the [facility] a port was to be placed this month by [facility] gen surg but never took place because of recurrent infections (Urosepsis, COVID, etc) platelets are rising - due to lymphoma?? reactive to her infectious processes? med side effect? suspect REACTIVE platelets appear to have peaked and coming down follow up with Dr. Verde in a few weeks (12) Thrombocytosis: worsening, but appears to have peaked three days ago repeat CBC in am etiology? send peripheral smear check Fe studies spoke with Dr Verde about this - believes it is reactive (13) DVT prophylaxis: Lovenox 40mg daily cont PT/OT , [facility] Thursday as long as they have a bed Admission and Anticipated Discharge Date Admission Date: September 27, 2020 Results & Data Results & Data ([facility]) Vital Signs (Past 12 Hours) Vital Signs Temp Pulse Pulse Resp BP Pulse Ox 10/08/20 08:15 98.1 F 95 H 18 101/66 92 10/07/20 22:44 98.2 F 101 H 16 99/65 L 91 PG Care Time/CCT Total # of Minutes Spent Total Time Spent with Patient: Total time spent is greater than 50% in coordination of care (as documented) at patient's floor/unit and/or counseling patient: Coding Diagnoses Sacral fracture S32.10XA Encounter type: initial encounter Zone of sacrum fracture: unspecified portion of sacrum Fracture type: closed Left ankle sprain S93.402A Encounter type: initial encounter Involved ligament of ankle: unspecified ligament Pneumonia due to 2019 novel coronavirus U07.1; J12.89 Metabolic encephalopathy G93.41 Gastroesophageal reflux disease K21.9 (HFpEF) heart failure with preserved ejection fraction I50.31 Heart failure chronicity: acute Hypertension I10 Hypertension type: essential hypertension Abnormal finding on urinalysis R82.90 Chronic back pain M54.9; G89.29 Anemia D64.9 Anemia type: unspecified type 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 Follicular lymphoma type: unspecified follicular type Lymphoma site: unspecified region Thrombocytosis D47.3 DVT prophylaxis Z29.9 (1) Sacral fracture Encounter type: initial encounter Zone of sacrum fracture: unspecified portion of sacrum Fracture type: closed Qualified Code(s): S32.10XA - Unspecified fracture of sacrum, initial encounter for closed fracture (2) Left ankle sprain Encounter type: initial encounter Involved ligament of ankle: unspecified ligament Qualified Code(s): S93.402A - Sprain of unspecified ligament of left ankle, initial encounter (3) (HFpEF) heart failure with preserved ejection fraction Heart failure chronicity: acute Qualified Code(s): I50.31 - Acute diastolic (congestive) heart failure (4) Hypertension Hypertension type: essential hypertension Qualified Code(s): I10 - Essential (primary) hypertension (5) Anemia Anemia type: unspecified type Qualified Code(s): D64.9 - Anemia, unspecified (6) Follicular lymphoma Follicular lymphoma type: unspecified follicular type Lymphoma site: unspecified region Qualified Code(s): C82.90 - Follicular lymphoma, unspecified, unspecified site
[2020-10-08] MEDS ORDERED: POLYETHYLENE (MIRALAX) 17 GM PACK PO PRN (09:45)
--- NOTE | 2020-10-08 09:48 | Pain Management Progress Note ---
Date of Service October 08, 2020 Assessment & Plan (1) Pneumonia due to COVID-19 virus: (2) Opioid dependence: (3) Lumbar canal stenosis: (4) Post laminectomy syndrome: 1. CASTILLO (battery life) in pump is <=1mo, thus will plan to begin conversion to oral opiates. Pump decreased 20% today and orders written for OxyContin 10 mg p.o. q. 12 with backup percocet 5/325mg 1 po q4h prn pain. May need to adjust based off pain scales. 2. Intrathecal dose is now basal rate of hydromorphone 0.3664 mg day, bupivacaine 1.832 mg/day, baclofen for 2.74 mcg/day simple continuous. Consider further weans over next few weeks pending patient condition. 3. Will follow peripherally, please call if any questions. Thank you Admission and Anticipated Discharge Date Admission Date: September 27, 2020 Subjective 75yo female known to the pain service due to ongoing chronic utilization of intrathecal hydromorphone pump. Patient was tentatively planned for pump revision/replacement on 09/03/2020 was cancelled due to her re-admission with COVID symptoms. Her intrathecal dose was altered last admission to allow for extended refill period. She reports minimal pain at this time as she has had minimal activity over the last weeks. She denies SOB today and plans for d/c to rehab soon. Pain control is currently adequate and is utilizing Percocet 5/3 25 mg sparingly. Patient has no further constitutional complaints. Physical Exam Physical Exam: minimal exam performed today given COVID 19 status Pt is awake alert and oriented x3 in NAD Pump/cath sites WNL, pump is fairly mobile within pocket secondary to skin laxity Abd is soft/NT
--- NOTE | 2020-10-08 17:22 | Discharge Summary ---
Date of Service October 08, 2020 Admission HPI Per Admitting Provider The patient is a 75-year-old female with most recent admissions to [facility] from 08/26-08/31 and 09/05-09/19 for Covid related illnesses. During her assessment at the senior living today, she was found to be mildly hypoxic, and she was then referred to the emergency department. In the emergency department temperature was 100.2 F, hemoglobin was 7.7, D-dimer was 2010 and albumin was 2.1. COVID-19 test was positive. Chest x-ray showed increasing bilateral infiltrates. Principal Diagnosis sacral fracture covid pneumonia pain pump battery nearing end of life pain pump for post laminectomy syndrome/ spinal stenosis Discharge Exam The patient appeared well Vital signs as documented. Lungs are clear to auscultation and appear unlabored Cardiac exam, Rhythm is regular.. No murmurs, rubs or gallops. Abdominal exam reveals normal bowel sounds, soft non tender, no masses Extremities are nonedematous and both pedal pulses are normal. Neurologic exam is alert and oriented, no focal loss of strength or sensation Patient particularly has no pain despite her pump battery reducing and Dr. Ercikson pain management reducing her infusion rate. Patient does have p.o. as needed opiate backup and was started on scheduled OxyContin per recommendations of Dr. Erickson Skin is without bruises or rashes Psychologically is without concerns for anxiety or depression. Discharge Data Allergies Allergy/AdvReac Type Severity Reaction Status Date / Time latex Allergy Mild contact Verified 09/27/20 15:02 dermatitis Sulfa (Sulfonamide Allergy Mild RASH Verified 09/27/20 15:02 Antibiotics) nickel Allergy Unknown contact Verified 09/27/20 15:02 dermatitis Consultations 09/27/20 14:25 ED Decision to Admit Stat 09/27/20 19:23 Consult Case Management - Discharge Planning Routine 10/01/20 10:52 Consult Pain Management Routine Ordered Studies 10/03/20 14:01 US venous doppler [facility] Urgent Hospital Course (1) Sacral fracture: nondisplaced on x-rays, s/p fall 10/02/20 in her room. no Rx needed other than pain control. 25-OH vit D level earlier this fall wnl. stable. plan for rehab at [facility] (2) Left ankle sprain: fortunately no obvious fractures on x-rays. . elevate. (3) Pneumonia due to 2019 novel coronavirus: Initial date of dx - 09/09/20. Rx during previous admission with 10-day course decadron, plasma, remdesivir. d/c to [facility]. Re-admitted on 09/27/20 due to recurrent fever, worsening cxr, etc. Repeat course of steroids & remdesivir initiated on 09/27/20 - completed decadron on 10/06 Remdesivir course is complete. Repeat plasma given on 09/28/20. Received 7-day course of IV zosyn in the event this was a secondary bacterial pneumonia in setting of recent COVID. Zosyn stopped 10/03. titrated down to room air for a few days, no respiratory distress at all will down grade out of the COVID unit to medical floor no need for negative pressure room as initial positive test was 09/09 at time of this admission, she had negative CTA chest. checked dopplers legs due to varicose veins, etc and these were NEGATIVE (4) Metabolic encephalopathy: appears to be resolved for a few days 2nd to COVID delirium, hospital delirium, potentially steroids, other factors. Avoid benzos. reinforce sleep/wake cycle. . Rx for VRE UTI during prior admission. but grew VRE again a few days ago. and u/a again dirty, we are awaiting culture will not be sent on antibiotics but could use po linezolid if needed at [facility] if culture confirms continued issues she has no sx at time of dc (5) Gastroesophageal reflux disease: Continue protonix bid (6) (HFpEF) heart failure with preserved ejection fraction: compensated no evidence volume overload lasix prn (7) Hypertension: controlled without meds (8) Abnormal finding on urinalysis: urine cx grew VRE we treated her for VRE UTI in early September with 7-day course of daptomycin she may simply be colonized now symptomatic for UTI daptomycin started 10/04, completed 5 day course, urine culture pending at discharge concern if colonized (9) Chronic back pain: Pain pump in place Refilled on 10/[address] Erickson from [facility] pain management, concerns that battery is failing, reducing dose from pump with transition to po meds, recommended to start oxycontin at discharge with follow up in clinic dilaudid PO prn oxycodone PO prn (10) Anemia: s/p 2 units PRBCs at time of admission H/H trended down slightly, no signs of bleeding spoke with Dr Verde - in light of rising platelets he advised repeating her iron studies iron low at 32, transferrin 132 gave Venofer on 10/06, likely a degree of chronic disease anemia as well ferritin level recently elevated due to acute phase reactant with history of lymphoma and anemia will recommend follow up with Dr Verde (11) Follicular lymphoma: dx 12/2017 per records from the [facility] a port was to be placed this month by [facility] gen surg but never took place because of recurrent infections (Urosepsis, COVID, etc) platelets appear to have peaked and coming down follow up with Dr. Verde in a few weeks Total Time Total Time Spent Total Time Spent (In Minutes): It required greater than 30 minutes to prepare this patient for discharge Discharge Plan Discharge Items Patient Disposition: Transfer Inpatient Rehab Fac Reason For Visit: SYMPTOMATIC ANEMIA, COVID-19 PNEUMONIA W/ HYPOXIA Discharge Diagnosis: sacral fractures covid pneumonia chronic pain with pain pump battery low follicular lymphoma with anemia Activity: Per Instructions section Activity Comment: per PT/OT Non-emergency contact: Primary Care Provider Call non-emergency contact if: you have any medication questions and your symptoms worsen Follow-up/Referrals: Gunner Garcia MD [Primary Care Provider] - Diet: Regular Addtl Attending Provider Instructions: you have completed your treatment for Covid infection however since you were on steroids (dexamethasone) for an extended period of time we will provide a taper off of them over the next 16 days During your stay, pain management Dr Erickson felt that your pain pump battery maybe nearing its end of charge and recommended using some oral medications until you can see then in follow up. Oxycontin was started on discharge as pump was again turned down 10/08, watch for lethargy and constipation Pending Studies at Discharge: Yes Studies:: urine culture is pending Stand-Alone Forms: [email or web address], Opioid Pain Management Skilled Items Patient informed of condition?: Yes DNR: No Discharge Level of Care: Acute rehab Communicable Disease: No Discharge Prognosis: Stable Lines: None Urinary Catheter: No Medications and DC Order Prescriptions: New sennosides [Senokot] 8.6 mg Tablet 17.2 mg PO QAM Qty: 30 RF: 0 oxycodone [OxyContin] 10 mg tablet,oral only,ext.rel.12 hr 10 mg PO BID Qty: 60 RF: 0 prednisone 10 mg tablet 10 mg PO UD Qty: 40 RF: 0 Continued aspirin [Adult Low Dose Aspirin] 81 mg tablet,delayed release (DR/EC) 81 mg PO QAM RF: 0 cholecalciferol (vitamin D3) 2,000 unit capsule 2,000 units PO QAM RF: 0 fluticasone propionate [Flonase Allergy Relief] 50 mcg/actuation spray,suspension 2 sprays INTNAS DAILY PRN (Reason: allergy symptoms) Qty: 47.4 RF: 5 ferrous sulfate [iron] 325 mg (65 mg iron) tablet 325 mg PO QAM RF: 0 multivitamin Tablet 2 tab PO QAM RF: 0 calcium carbonate-vitamin D3 600 mg(1,500mg) -200 unit Tablet 1 tab PO QAM RF: 0 trazodone 50 mg tablet 50 mg PO HS PRN (Reason: sleep) RF: 0 duloxetine [Cymbalta] 60 mg capsule,delayed release(DR/EC) 120 mg PO QAM RF: 0 furosemide 20 mg tablet 20 mg PO DAILY PRN (Reason: edema) Qty: 10 RF: 0 potassium chloride 10 mEq Tablet Extended Release 10 meq PO BID RF: 0 melatonin 3 mg Tablet 6 mg PO HS PRN (Reason: Sleep) RF: 0 docusate sodium 100 mg Capsule 100 mg PO BID RF: 0 loratadine [Claritin] 10 mg Tablet 10 mg PO QAM RF: 0 cyclobenzaprine 5 mg Tablet 5 mg PO TID PRN (Reason: Muscle Spasm) RF: 0 Combivent Respimat 20-100 mcg/actuation Mist 1 puff INHALATION QID PRN (Reason: Shortness Of Breath) RF: 0 hydromorphone [Dilaudid] 2 mg Tablet 2 mg PO Q6H PRN (Reason: pain) 14 Days Qty: 60 RF: 0 gabapentin 300 mg Capsule 300 mg PO BID 30 Days Qty: 60 RF: 2 acetaminophen [Tylenol] 325 mg Tablet 650 mg PO Q6H PRN (Reason: Pain) RF: 0 famotidine 20 mg Tablet 20 mg PO QAM RF: 0 ascorbic acid (vitamin C) [Vitamin C] 500 mg Tablet 500 mg PO BID RF: 0 vitamin B complex Tablet 1 tab PO QAM RF: 0 naloxone 4 mg/actuation [place],Non-Aerosol 4 mg INTRANASAL DIRECTED PRN (Reason: overdose) RF: 0 polyethylene glycol 3350 [Miralax] 17 gram powder in packet 17 g PO DAILY PRN (Reason: Constipation) RF: 0 sennosides-docusate sodium [Senokot-S] 8.6-50 mg tablet 1 tab PO QAM PRN (Reason: Constipation) RF: 0 lidocaine 5 % adhesive patch,medicated 3 patch transdermal QAM RF: 0 Discontinued krill oil 500 mg capsule 500 mg PO QAM RF: 0 pantoprazole 40 mg Tablet,Delayed Release (Dr/Ec) 40 mg PO DAILYBB RF: 0 heparin (porcine) 5,000 unit/mL Solution 5,000 unit SUBCUT Q12H RF: 0 zinc sulfate 220 mg Capsule 220 mg PO QAM RF: 0 Discharge Orders: Discharge Order (Routine); Ordered 10/08/20 Ordered By: Frankie Renae Admission Data Admit Date/Time: 09/27/20 17:37 Attending Provider: Frankie Renae Admit Provider: Benny Pedraza Primary Care Provider: Gunner Garcia [facility] ; Benny Pedraza ; Amy Erickson Other Interventions: Discharge Summary Assessment (RN) Last Done: 10/08/20 11:31 Coding Level of Care Code D/C Day Management >30 mins Diagnoses Sacral fracture S32.10XA Encounter type: initial encounter Zone of sacrum fracture: unspecified portion of sacrum Fracture type: closed Left ankle sprain S93.402A Encounter type: initial encounter Involved ligament of ankle: unspecified ligament Pneumonia due to 2019 novel coronavirus U07.1; J12.89 Metabolic encephalopathy G93.41 Gastroesophageal reflux disease K21.9 (HFpEF) heart failure with preserved ejection fraction I50.31 Heart failure chronicity: acute Hypertension I10 Hypertension type: essential hypertension Abnormal finding on urinalysis R82.90 Chronic back pain M54.9; G89.29 Anemia D64.9 Anemia type: unspecified type 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 Follicular lymphoma type: unspecified follicular type Lymphoma site: unspecified region
[2020-10-08] MEDS ORDERED: oxyCODONE HCL 10 MG TABCR (OxyCONTIN) PO SCH (21:00)
== END 2020-10-08 13:07 | DRG 177 ==
LOC: ED 12:40 → 2S 17:37 → SUATTDRO 17:37 → 2S 18:34 → 3E 10-06 18:54

== ENCOUNTER 2021-01-08 10:23 | Inpatient (IN) ==
[2021-01-08] MEDS ORDERED: SODIUM CHLORIDE 0.9% 1000ML 250 ML IV ONE (11:00)
--- NOTE | 2021-01-08 11:09 | Emergency Department Note ---
History of Present Illness General Chief complaint: Hypotension Stated complaint: LOW BLOOD PRESSURE/HIGH HEART RATE Time Seen by Provider: 01/08/21 10:47 Source: patient and family History of Present Illness Provider complaint: Diarrhea Onset (ago): day(s) Location: abdomen Severity: moderate Pain Consistency: + intermittent Quality: + other (Loose diarrhea without blood) Relieved By: + none Associated symptoms: no chest pain, no cough, no fever/chills, no nausea/vomiting, no shortness of breath and no weakness Was lowGloria is a 75-year-old female sent over from the wound care clinic for evaluation of tachycardia and hypotension in the setting of 3 days of diarrhea. The patient states that she has had about 3 episodes a day of very loose diarrhea. She states that she previously had a C. difficile infection start vancomycin 3 weeks ago. She states that her diarrhea does not seem like her C. difficile infection. She states the consistency is different and the smell is also different. She denies any associated abdominal pain. She states that she went to the wound care clinic today and they noted her heart rate was high and her blood pressure was low. She did not noticed this at all. She states that she does not feel her heart racing and she does not feel weak or lightheaded. She denies any chest pain, cough or cold symptoms, shortness of breath, palpita tions, nausea or vomiting or urinary symptoms. She does state that she had a temperature of 99 after she received the COVID-19 vaccination about 2 weeks ago but has not had any temperature since. Her daughter notes that she was admitted to the hospital for Covid last fall and she developed hypotension at that time. She then was given IV fluids which she was told went into her lungs. Home Medications Medication Instructions Recorded Confirmed Type cholecalciferol (vitamin D3) 50 2,000 units PO QAM 07/27/18 01/08/21 History mcg (2,000 unit) capsule fluticasone propionate 50 2 sprays INTNAS DAILY PRN #47.4 gm 07/25/19 01/08/21 Rx mcg/actuation nasal spray,suspension ferrous sulfate 325 mg (65 mg 325 mg PO QAM 07/11/20 01/08/21 History iron) tablet calcium carbonate-vitamin D3 1 tab PO QAM 08/21/20 01/08/21 History multivitamin 2 tab PO QAM 08/21/20 01/08/21 History loratadine [Claritin] 10 mg PO QAM 09/05/20 01/08/21 History vitamin B complex 1 tab PO QAM 09/27/20 01/08/21 History naloxone 4 mg/actuation nasal spray 4 mg INTRANASAL DIRECTED PRN #2 11/12/20 01/08/21 Rx ea duloxetine 60 mg capsule,delayed 120 mg PO QAM #60 cap 11/30/20 01/08/21 Rx release diclofenac sodium 1 % topical gel 4 g TOPICAL QID #300 g 12/03/20 01/08/21 Rx oxycodone-acetaminophen 5 mg-325 1 tab PO Q4H PRN #90 tab 12/07/20 01/08/21 Rx mg tablet ascorbic acid (vitamin C) 500 mg 1,000 mg PO BID tab 12/28/20 01/08/21 History tablet aspirin 81 mg tablet,delayed 81 mg PO QPM tab 12/28/20 01/08/21 History release gabapentin 600 mg tablet 300 mg PO .COMPLEX tab 12/28/20 01/08/21 History lansoprazole 30 mg capsule,delayed 30 mg PO QAM 12/28/20 01/08/21 History release melatonin 3 mg tablet 6 mg PO HS tab 12/28/20 01/08/21 History fentanyl 50 mcg/hr transdermal 1 patch TRANSDERMAL Q72H #10 ea 01/01/21 01/08/21 Rx patch collagenase clostridium histo. 250 1 applic TOPICAL DAILY #30 g 01/08/21 01/08/21 Rx unit/gram topical ointment Allergies Allergy/AdvReac Type Severity Reaction Status Date / Time latex Allergy Mild contact Verified 01/08/21 13:30 dermatitis Sulfa (Sulfonamide Allergy Mild RASH Verified 01/08/21 13:30 Antibiotics) nickel Allergy Unknown contact Verified 01/08/21 13:30 dermatitis Past Med/Surg History Medical History Acute hypoxemic respiratory failure Acute leg pain Anemia Anxiety Atherosclerosis of aorta Bacteremia due to Gram-negative bacteria Chronic left hip pain Chronic pain of lower extremity, bilateral Chronic pain syndrome Degenerative disc disease Depression DVT (deep venous thrombosis) possibly, treated inpatient directly following knee replacement. no problems since. Emphysema of lung Noted on chest CTs but not reported by patient. Follicular lymphoma currently monitoring and treating with Dr Moseley (oncology). awaiting mediport for chemo by Dr Chow Gastroesophageal reflux disease Hyperlipidemia Hypertension Leukocytosis Lumbar canal stenosis Mild aortic regurgitation Moderate aortic stenosis Moderate mitral regurgitation Myofascial pain Osteoarthritis Peripheral edema Currently, L >R, 2/2 lymphoma. Wearing compression socks. Persistent insomnia Piriformis syndrome Pneumonia due to 2019 novel coronavirus Post laminectomy syndrome Presence of intrathecal pump Urinary tract infection currently finishing abx (08/21/20). not recurrent infections typically Surgical History H/O cataract removal with insertion of prosthetic lens bilateral History of cholecystectomy 1978 History of colonoscopy History of knee replacement procedure of right knee 2002 History of laminectomy lumbar ~2013 Previous back surgery 2006,2007,2013 S/P hip replacement bilateral 2015, 2016 Status post laminectomy with spinal fusion lumbar, 2007 & 2008 Family History Father Abdominal aneurysm Colorectal cancer Grandmother (Paternal) Cancer Other No family history of adverse response to anesthesia Denies family history of Ovarian cancer Prostate cancer Myocardial infarction Breast cancer Social History Smoking Status: Former smoker Second Hand Exposure: No; Hx Alcohol Use: No (\) Hx Substance Use: No Preferred Language: Portuguese Communication Ability: Effective Visual Impairment: Limited Hearing Ability: Normal Automobile Upholsterer Required: No Beliefs That Will Affect Care: None marital status: / Current Living Situation: Rehab current occupational status: retired Feels Safe at Home: Yes Childhood Exposure to Second-Hand Smoke: Yes caffeine: Yes Dental Care, Regularly: No Physical Activity Frequency: Does not Exercise Seatbelt Use: always Sunscreen Use: Yes Assistive Devices: Walker Review of Systems See HPI for pertinent positives & negatives. and A total of 10 systems reviewed and were otherwise negative Physical Exam Vital Signs Vital Signs - 24 hr 01/08/21 10:39 01/08/21 11:27 01/08/21 11:33 Temperature 36.2 C L Temperature Source Temporal Artery Scan Pulse Rate 111 H 106 H 107 H Pulse Rate from SpO2 Sensor 106 H 108 H Pulse Rhythm Regular Pulse Strength Normal Respiratory Rate 20 19 16 Respiratory Effort / Characteristics Non-Labored Spontaneous Respiratory Depth Normal Respiratory Pattern Regular Blood Pressure 90/61 L 86/61 L 89/62 L Blood Pressure Mean 70 69 71 Blood Pressure Position Sitting Pulse Oximetry 94 91 94 Oxygen Delivery Method Room Air Room Air Sepsis Recent Fever Within 48 Hours No Sepsis New/Unexplained Change in Mental Status No Sepsis Action Taken by Nursing No Action Required 01/08/21 12:30 01/08/21 13:00 01/08/21 13:30 Temperature Temperature Source Pulse Rate 107 H 109 H 111 H Pulse Rate from SpO2 Sensor 108 H 108 H 110 H Pulse Rhythm Pulse Strength Respiratory Rate 20 18 17 Respiratory Effort / Characteristics Respiratory Depth Respiratory Pattern Blood Pressure Blood Pressure Mean Blood Pressure Position Pulse Oximetry 97 95 94 Oxygen Delivery Method Sepsis Recent Fever Within 48 Hours Sepsis New/Unexplained Change in Mental Status Sepsis Action Taken by Nursing Constitutional: Vital signs reviewed. BP 90/61. Eyes: Pupils are equal round reactive to light. Conjunctiva are noninjected. ENT: Pharynx is clear without erythema or exudate. Mucous membranes are very dry.. Neck supple without meningeal signs. Respiratory: Clear to auscultation bilaterally. Breath sounds are equal bilaterally. Cardiovascular: Tachycardic. Regular rhythm. GI: Soft, nondistended and nontender. Bowel sounds are present. Musculoskeletal: No peripheral edema. No lower extremity tenderness. Integumentary: No cyanosis. or jaundice. Fentanyl patch right anterior upper chest. Small sacral decubitus ulcer on left buttock without significant erythema or tenderness or discharge. Also small ulcer to the left heel without significant tenderness or erythema. Neurological: The patient is awake and alert. No focal deficits. Psychiatric: Normal affect. Not anxious appearing. Course Administered Medications Discontinued Medications Sodium Chloride (Nss 1000ml) 250 mls @ 125 mls/hr IV .Q2H ONE Stop: 01/08/21 12:59 Last Infusion: 01/08/21 15:03 Dose: 0 mls/hr Documented by: [id number] Admin: 01/08/21 11:29 Dose: 125 mls/hr Documented by: [id number] Piperacillin Sod/Tazobactam Sod (Zosyn) 4.5 gm in 120 mls @ 240 mls/hr IV NOW ONE Stop: 01/08/21 13:34 Last Infusion: 01/08/21 15:04 Dose: 0 mls/hr Documented by: [id number] Admin: 01/08/21 13:35 Dose: 240 mls/hr Documented by: [id number] Daptomycin 400 mg/ Syringe 8 mls @ 4 mls/min IV NOW ONE; Protocol Stop: 01/08/21 13:14 Last Admin: 01/08/21 13:35 Dose: 4 mls/min Documented by: [id number] Metronidazole (Flagyl) 500 mg in 100 mls @ 100 mls/hr IV NOW STA Stop: 01/08/21 14:12 Last Infusion: 01/08/21 15:03 Dose: 0 mls/hr Documented by: [id number] Admin: 01/08/21 13:39 Dose: 100 mls/hr Documented by: [id number] Ioversol (Ioversol 100ml) 91 ml IV ONCE ONE Stop: 01/08/21 16:35 Last Admin: 01/08/21 16:35 Dose: 91 ml Documented by: [id number] Potassium Chloride (Potassium Chloride Crtab 20 Meq Tabcr) 40 meq PO NOW STA Stop: 01/08/21 14:09 Last Admin: 01/08/21 14:53 Dose: 40 meq Documented by: [id number] Raspberry (Raspberry Syrup 5 Ml Udp) 5 ml PO ONE STA Stop: 01/08/21 13:11 Last Admin: 01/08/21 13:35 Dose: 5 ml Documented by: [id number] Vancomycin HCl (Vancomycin Hcl 500 Mg/10 Ml Soln) 500 mg PO NOW STA Stop: 01/08/21 13:11 Last Admin: 01/08/21 13:35 Dose: 500 mg Documented by: [id number] Critical Care Time Critical Care Time: Yes Total Critical Care Time: 45 I have personally spent approximately 45 minutes of critical care time in the direct management of this patient. This includes bedside care, interpretation of diagnostic studies, and testing, discussion with consultants, patient, and family members, and other required patient management activities. These minutes are in excess of all separately billable procedures. Medical Decision Making Differential Diagnosis Dehydration, colitis, enteritis, C. difficile infection, electrolyte abnormality, anemia, dysrhythmia, atrial fibrillation, GI bleed Medical Records Attestation: I reviewed the patient's medical records. I did perform a limited focused review of portions of the patient's old chart on the electronic medical record. The patient was just seen by Dr. Vasquez at the wound care clinic. She was sent here for hypotension and tachycardia. The patient was admitted in September for COVID-19 pneumonia. She was noted at that time to have had heart failure with preserved ejection fraction. She did have an echocardiogram in August which showed a EF of 60-65. Home Medications Current Medication List: was personally reviewed by me Laboratory Data Attestation: I reviewed the patient's lab results. Result diagrams: 01/08/21 11:23 01/08/21 11:23 Lab Results 01/08/21 01/08/21 01/08/21 Range/Units 11:10 11:23 11:23 WBC 31.90 H* (4.8-10.8) K/uL RBC 4.33 (4.2-5.4) M/uL Hgb 10.8 L (12.0-16.0) g/dL Hct 34.4 L (37-47) % MCV 79.4 L (80-100) fL MCH 24.9 L (25-34) pg MCHC 31.4 L (32-36) g/dL RDW Std Deviation 51.8 H (36.4-46.3) fL RDW Coeff of Inge 17.6 H (11.5-14.5) % Plt Count 495 H (130-400) K/uL MPV 9.6 (7.4-10.4) fL Immature Gran % (Auto) 0.4 % Neut % (Auto) 89.6 % Lymph % (Auto) 3.9 % [place] % (Auto) 5.8 % Eos % (Auto) 0.2 % Baso % (Auto) 0.1 % Neut # (Auto) 28.58 H (1.4-6.5) K/uL Lymph # (Auto) 1.26 (1.2-3.4) K/uL [place] # (Auto) 1.86 H (0.11-0.59) K/uL Eos # (Auto) 0.05 (0-0.5) K/uL Baso # (Auto) 0.02 (0-0.2) K/uL Immature Gran # (Auto) 0.13 H (0.00-0.02) K/uL Toxic Granulation 1+ Toxic Vacuolation 2+ Sodium 133 L (136-145) mmol/L Potassium 3.1 L (3.5-5.1) mmol/L Chloride 98 (98-107) mmol/L Carbon Dioxide 26 (21-32) mmol/L Anion Gap 8.0 (3-11) BUN 27 H (7-18) mg/dl Creatinine 0.82 (0.6-1.2) mg/dl Est Cr Clr Drug Dosing 58.5 ml/min Est GFR ( Amer) 81.7 Est GFR (Non-Af Amer) 70.5 BUN/Creatinine Ratio 32.5 H (10-20) Glucose 97 (70-99) mg/dl Lactate (0.4-2.0) mmol/L Calcium 9.8 (8.5-10.1) mg/dl Magnesium 2.0 (1.8-2.4) mg/dl Total Bilirubin 0.8 (0.2-1) mg/dl AST 10 L (15-37) U/L ALT 16 (12-78) U/L Alkaline Phosphatase 118 H (45-117) U/L Troponin I < 0.015 (0-0.045) ng/ml Total Protein 7.3 (6.4-8.2) gm/dl Albumin 2.3 L (3.4-5.0) gm/dl Globulin 5.0 H (2.5-4.0) gm/dl Albumin/Globulin Ratio 0.5 L (0.9-2) Procalcitonin (0-0.5) ng/ml Stl C. diff Tox B Gene Positive Cdiff Gene H (Neg) Stl C.difficile Tox A&B Positive Cdiff Toxin A* (Negative) COVID-19 Eval Order SARS-CoV-2, RNA, NAAT (NEGATIVE) Blood Type Antibody Screen 01/08/21 01/08/21 01/08/21 Range/Units 11:23 13:25 13:25 WBC (4.8-10.8) K/uL RBC (4.2-5.4) M/uL Hgb (12.0-16.0) g/dL Hct (37-47) % MCV (80-100) fL MCH (25-34) pg MCHC (32-36) g/dL RDW Std Deviation (36.4-46.3) fL RDW Coeff of Inge (11.5-14.5) % Plt Count (130-400) K/uL MPV (7.4-10.4) fL Immature Gran % (Auto) % Neut % (Auto) % Lymph % (Auto) % [place] % (Auto) % Eos % (Auto) % Baso % (Auto) % Neut # (Auto) (1.4-6.5) K/uL Lymph # (Auto) (1.2-3.4) K/uL [place] # (Auto) (0.11-0.59) K/uL Eos # (Auto) (0-0.5) K/uL Baso # (Auto) (0-0.2) K/uL Immature Gran # (Auto) (0.00-0.02) K/uL Toxic Granulation Toxic Vacuolation Sodium (136-145) mmol/L Potassium (3.5-5.1) mmol/L Chloride (98-107) mmol/L Carbon Dioxide (21-32) mmol/L Anion Gap (3-11) BUN (7-18) mg/dl Creatinine (0.6-1.2) mg/dl Est Cr Clr Drug Dosing ml/min Est GFR ( Amer) Est GFR (Non-Af Amer) BUN/Creatinine Ratio (10-20) Glucose (70-99) mg/dl Lactate (0.4-2.0) mmol/L Calcium (8.5-10.1) mg/dl Magnesium (1.8-2.4) mg/dl Total Bilirubin (0.2-1) mg/dl AST (15-37) U/L ALT (12-78) U/L Alkaline Phosphatase (45-117) U/L Troponin I (0-0.045) ng/ml Total Protein (6.4-8.2) gm/dl Albumin (3.4-5.0) gm/dl Globulin (2.5-4.0) gm/dl Albumin/Globulin Ratio (0.9-2) Procalcitonin (0-0.5) ng/ml Stl C. diff Tox B Gene (Neg) Stl C.difficile Tox A&B (Negative) COVID-19 Eval [email or web address] SARS-[facility]-2, RNA, NAAT NEGATIVE (NEGATIVE) Blood Type B Positive Antibody Screen NEGATIVE 03/02/21 03/02/21 Range/Units 13:32 13:32 WBC (4.8-10.8) K/uL RBC (4.2-5.4) M/uL Hgb (12.0-16.0) g/dL Hct (37-47) % MCV (80-100) fL MCH (25-34) pg MCHC (32-36) g/dL RDW Std Deviation (36.4-46.3) fL RDW Coeff of Inge (11.5-14.5) % Plt Count (130-400) K/uL MPV (7.4-10.4) fL Immature Gran % (Auto) % Neut % (Auto) % Lymph % (Auto) % [place] % (Auto) % Eos % (Auto) % Baso % (Auto) % Neut # (Auto) (1.4-6.5) K/uL Lymph # (Auto) (1.2-3.4) K/uL [place] # (Auto) (0.11-0.59) K/uL Eos # (Auto) (0-0.5) K/uL Baso # (Auto) (0-0.2) K/uL Immature Gran # (Auto) (0.00-0.02) K/uL Toxic Granulation Toxic Vacuolation Sodium (136-145) mmol/L Potassium (3.5-5.1) mmol/L Chloride (98-107) mmol/L Carbon Dioxide (21-32) mmol/L Anion Gap (3-11) BUN (7-18) mg/dl Creatinine (0.6-1.2) mg/dl Est Cr Clr Drug Dosing ml/min Est GFR ( Amer) Est GFR (Non-Af Amer) BUN/Creatinine Ratio (10-20) Glucose (70-99) mg/dl Lactate 1.3 (0.4-2.0) mmol/L Calcium (8.5-10.1) mg/dl Magnesium (1.8-2.4) mg/dl Total Bilirubin (0.2-1) mg/dl AST (15-37) U/L ALT (12-78) U/L Alkaline Phosphatase (45-117) U/L Troponin I (0-0.045) ng/ml Total Protein (6.4-8.2) gm/dl Albumin (3.4-5.0) gm/dl Globulin (2.5-4.0) gm/dl Albumin/Globulin Ratio (0.9-2) Procalcitonin 1.50 H (0-0.5) ng/ml Stl C. diff Tox B Gene (Neg) Stl C.difficile Tox A&B (Negative) COVID-19 Eval Order SARS-CoV-2, RNA, NAAT (NEGATIVE) Blood Type Antibody Screen Imaging Data Radiologist's Impression: PA CHEST WITH ABDOMINAL SERIES CLINICAL HISTORY: Generalized abdominal pain. Nausea and diarrhea. FINDINGS: A PA chest radiograph is compared to study dated 09/27/2020 and correlated with chest CT dated 09/25/2020. The PA view is significantly degraded by patient rotation. The cardiomediastinal silhouette is unremarkable noting atherosclerotic calcification of the thoracic aorta. Emphysema and chronic interstitial thickening are similar to previous. There is chronic elevation of right hemidiaphragm with associated atelectasis. No airspace consolidation or large pleural effusion is identified. No pneumothorax is seen. The skeletal structures are osteopenic. The bony thorax is grossly intact. Supine and erect abdominal radiographs are correlated with abdominal CT dated 09/05/2020. There are mildly distended and gas-filled loops of small bowel which measure up to 2.6 cm in diameter. There are scattered air-fluid levels on the upright view. Gas is seen within the left colon. No evidence of intraperitoneal free air is seen. There are no abnormal abdominal calcifications. The lumbosacral spine and bony pelvis appear intact. Fusion hardware is noted in the lumbar spine. Bilateral hip arthroplasties are in place. An electronic device partially obscures the left hemipelvis. IMPRESSION: 1. Emphysematous change with no active disease in the chest. 2. There are mildly distended and gas-filled loops of small bowel with scattered air-fluid levels in the upright view. Gas is seen within the left colon and this likely represents a nonspecific enteritis. Correlate clinically for evidence of low-grade/developing bowel obstruction. ACT 112: Negative or not required by law. Electronically signed by: Danyel Means M.D. 01/08/2021 12:35 PM Dictated: 01/08/21 1229 Transcribed: 01/08/21 1229 ECG Data Attestation: I personally reviewed and interpreted this ECG as follows: Indication: + tachycardia Rate (beats per minute): 107 Rhythm: + sinus tachycardia ECG Gause: + Normal ECG ST segments: + Nonspecific ST abnormalities ECG Findings: no PVCs Comparison ECG Date: from (September 27, 2020) Change: no significant change MDM Narrative I did evaluate the patient as noted above. The patient is presenting with diarrhea for 3 days with incidental note of tachycardia and hypotension at the wound care clinic. She denies any other symptoms other than diarrhea. She does appear very dehydrated and her mucous membranes are very dry. IV access was established. I did treat her with normal saline at 125 mL/h IV. Her daughter is very concerned about fluid overload and so she did not wish to have her mother bolused any fluids. I did order stool testing for C. difficile and stool culture. C. difficile toxin came back positive. I did place an order for continuous cardiac monitoring. The monitor showed sinus tachycardia at a rate of 105 bpm. I did order and personally review the patient's 12-lead EKG as desc ribed above. She has sinus tachycardia without acute ischemic findings. I did order and personally reviewed the images of the patient's chest x-ray as described above. There is no evidence of pneumonia. There are mildly distended and gas-filled loops of small bowel with scattered air-fluid levels. This seems to suggest a nonspecific enteritis. She is not having any vomiting or abdominal pain at this time to suggest bowel obstruction. I did order and review the patient's blood work as noted in the electronic medical record. Her white blood cell count is over 31,000. She is anemic. Her procalcitonin is elevated but lactate is negative. Potassium is 3.1. Blood cultures were ordered. I did treat the patient with IV Flagyl 500 mg. She was also given vancomycin 500 mg p.o. I did also cover her with broad-spectrum antibiotics including Zosyn IV and daptomycin IV given her prior cultures growing VRE and Pseudomonas. I did order a urine analysis. She does not appear to have an infection. I did discuss the test results with the patient and her daughter. She remains hypotensive but again her daughter does not wish for her to have more fluids at a rapid rate. The patient was hospitalized. I did discuss case with the hospitalist and case consultant. Rapid Covid testing was negative. Impression & Plan Acute hypotension, Tachycardia, C. difficile diarrhea, Acute hypokalemia, Acute dehydration, Leukocytosis Discharge Plan Visit Data Chief Complaint: Hypotension Stated Complaint: LOW BLOOD PRESSURE/HIGH HEART RATE ED Provider: Frankie Rogers Discharge Problem: Acute hypotension, Tachycardia, C. difficile diarrhea, Acute hypokalemia, Acute dehydration, Leukocytosis Patient Disposition: Admitted As Inpatient Discharge Instructions Interventions: ED Discharge Assessment Last Done: 01/08/21 15:25
[2021-01-08 11:50] LABS: Hematocrit (blood only) 34.4 % (37-47); Hemoglobin 10.8 g/dL (12.0-16.0); Mean Corpuscular Hemoglobin 24.9 pg (25-34); Mean Corpuscular Hgb Conc 31.4 g/dL (32-36); Mean Corpuscular Volume 79.4 fL (80-100); Mean Platelet Volume 9.6 fL (7.4-10.4); Platelet Count 495 K/uL (130-400); RDW Coefficient of Variation 17.6 % (11.5-14.5); RDW Standard Deviation 51.8 fL (36.4-46.3); Red Blood Count 4.33 M/uL (4.2-5.4)
[2021-01-08 11:51] LABS: Alanine Aminotransferase 16 U/L (12-78); Albumin Level 2.3 gm/dl (3.4-5.0); Aspartate Aminotransferase 10 U/L (15-37); BUN Creatinine Ratio 32.5 (10-20); Blood Urea Nitrogen 27 mg/dl (7-18); Calcium 9.8 mg/dl (8.5-10.1); Carbon Dioxide 26 mmol/L (21-32); Chloride 98 mmol/L (98-107); Creatinine Clr Calc Pharmacy 58.5 ml/min; Est GFR (African American) 81.7; Est GFR (Non-African American) 70.5; Glucose 97 mg/dl (70-99); Potassium 3.1 mmol/L (3.5-5.1); Sodium 133 mmol/L (136-145)
[2021-01-08 11:55] LABS: Albumin Globulin Ratio 0.5 (0.9-2); Alkaline Phosphatase 118 U/L (45-117); Bilirubin,Total 0.8 mg/dl (0.2-1); Total Protein 7.3 gm/dl (6.4-8.2); Troponin I < 0.015 ng/ml (0-0.045)
--- NOTE | 2021-01-08 12:37 | XRay Report ---
PA CHEST WITH ABDOMINAL SERIES CLINICAL HISTORY: Generalized abdominal pain. Nausea and diarrhea. FINDINGS: A PA chest radiograph is compared to study dated 09/27/2020 and correlated with chest CT dated 2019. The PA view is significantly degraded by patient rotation. The cardiomediastinal silhouette is unremarkable noting atherosclerotic calcification of the thoracic aorta. Emphysema and chronic inters titial thickening are similar to previous. There is chronic elevation of right hemidiaphragm with ass ociated atelectasis. No airspace consolidation or large pleural effusion is identified. No pneumothor ax is seen. The skeletal structures are osteopenic. The bony thorax is grossly intact. Supine and erect abdominal radiographs are correlated with abdominal CT dated 09/05/2020. There are m ildly distended and gas-filled loops of small bowel which measure up to 2.6 cm in diameter. There are scattered air-fluid levels on the upright view. Gas is seen within the left colon. No evidence of in traperitoneal free air is seen. There are no abnormal abdominal calcifications. The lumbosacral spine and bony pelvis appear intact. Fusion hardware is noted in the lumbar spine. Bilateral hip arthropla sties are in place. An electronic device partially obscures the left hemipelvis. IMPRESSION: 1. Emphysematous change with no active disease in the chest. 2. There are mildly distended and gas-filled loops of small bowel with scattered air-fluid levels in the upright view. Gas is seen within the left colon and this likely represents a nonspecific enteriti s. Correlate clinically for evidence of low-grade/developing bowel obstruction. ACT 112: Negative or not required by law. Electronically signed by: Danyel Means M.D. 01/08/2021 12:35 PM
[2021-01-08 12:39] LABS: Basophils # (auto) 0.02 K/uL (0-0.2); Basophils % (auto) 0.1 %; Eosinophils # (auto) 0.05 K/uL (0-0.5); Eosinophils % (auto) 0.2 %; Immature Granulocytes # (auto) 0.13 K/uL (0.00-0.02); Immature Granulocytes % (auto) 0.4 %; Lymphocytes # (auto) 1.26 K/uL (1.2-3.4); Lymphocytes % (auto) 3.9 %; Monocytes # (auto) 1.86 K/uL (0.11-0.59); Monocytes % (auto) 5.8 %; Neutrophils # (auto) 28.58 K/uL (1.4-6.5); Neutrophils % (auto) 89.6 %; Toxic Granulation 1+; Toxic Vacuolation 2+
[2021-01-08 12:56] LABS: Cdiff Antigen Positive
[2021-01-08 12:57] LABS: Cdiff Toxin A+B Positive Cdiff Toxin (Negative)
[2021-01-08] MEDS ORDERED: PIPERACILLIN/TAZOBACTAM 4.5 GM/120 ML BAG IV ONE (13:05)
[2021-01-08] MEDS ORDERED: PIPERACILL/TAZOBAC CONSULT ACTIVE PRN (13:05)
[2021-01-08] MEDS ORDERED: RASPBERRY SYRUP 5 ML UDP PO STA (13:10)
[2021-01-08] MEDS ORDERED: VANCOMYCIN HCL 500 MG/10 ML SOLN PO STA (13:10)
[2021-01-08] MEDS ORDERED: metroNIDAZOLE 500 MG/100 ML BAG IV STA (13:13)
[2021-01-08] MEDS ORDERED: DAPTOmycin 400 MG in SYRINGE 0 ML IV ONE (13:13)
--- NOTE | 2021-01-08 14:02 | History & Physical Report ---
Date of Service January 08, 2021 Assessment & Plan (1) Sepsis: Lactate 1.3 with history of pulmonary edema requiring BiPAP therefore will avoid aggressive rehydration and give IV fluid boluses for mean arterial pressure < 65. Suspected source C. difficile given history of diarrhea however UA pending at this time. (2) C. difficile colitis: Given associated hypertension we will treat with vancomycin 500 mg 4 times daily with IV metronidazole 500 mg every eight hours. CT abdomen pelvis pending to assess for ileus. Consider ID consult given recurrence once blood cultures back (3) Chronic left hip pain: Outpatient management deferred due to ongoing C. difficile, Covid and bacterial pneumonia PT/OT (4) Ulcer of left heel: No surrounding cellulitis Consult wound care (5) Sacral ulcer: No surrounding cellulitis suspected Consult wound care (6) Moderate mitral regurgitation: Noted (7) (HFpEF) heart failure with preserved ejection fraction: Chronic. No acute failure. Pulmonary edema during last admission with relatively aggressive fluid resuscitation. We will avoid such this hospitalization and treat hypertension with fluid boluses as needed. (8) Gastroesophageal reflux disease: Switch lansoprazole to pantoprazole as per hospital formulary. (9) Follicular lymphoma: Notable history for this although management has been deferred due to recurrent infections. (10) DVT prophylaxis: Lovenox 40 mg SQ daily Admission and Anticipated Discharge Date Admission Date: January 08, 2021 History of Present Illness Chief Complaint: Hypertension, tachycardia Primary Care Provider: Gunner Garcia MD Lizeth Henry is a 75-year-old female who presents to the ER on advice of her wound care provider due to tachycardia and hypotension noted in the office went to wound care appointment and noted tachycardia and hypotension. The patient reports feeling generally well other than upset stomach for the last few days. She reports having C. difficile on and off since October. Her diarrhea returned 3 days ago although did not smell like her previous C. difficile therefore was just got a call for a test today. She denies any nausea, vomiting, abdominal pain. She does report reduced appetite. With her C. difficile she reports having diarrhea constantly since her first diagnosis in October and rehabilitation up until 2 to 3 weeks ago. Her stool has been much improved (although not completely normal) up until the last 3 days. She denies any fever or chills. Since August she has been hospitalized for UTI sepsis, COVID-19, bacterial pneumonia and then c. diff. She has been feeling relatively good since getting out of hospital. Having Left hip pain due to L5/S1 radiculopathy. In the ER CXR/AXR concerning for mildly distended and gas-filled loops of small bowel with scattered air-fluid levels representing nonspecific enteritis. Imaging concerning for low-grade/developing bowel obstruction although clinically not concerning for this. WBC 31.9. C. Diff positive. She was referred to medicine for admission and ongoing management of c. diff colitis. Allergies Allergy/AdvReac Type Severity Reaction Status Date / Time latex Allergy Mild contact Verified 01/08/21 13:30 dermatitis Sulfa (Sulfonamide Allergy Mild RASH Verified 01/08/21 13:30 Antibiotics) nickel Allergy Unknown contact Verified 01/08/21 13:30 dermatitis Home Medications Medication Instructions Recorded Confirmed Type cholecalciferol (vitamin D3) 50 2,000 units PO QAM 07/27/18 01/08/21 History mcg (2,000 unit) capsule ferrous sulfate 325 mg (65 mg 325 mg PO QAM 07/11/20 01/08/21 History iron) tablet calcium carbonate-vitamin D3 1 tab PO QAM 08/21/20 01/08/21 History multivitamin 2 tab PO QAM 08/21/20 01/08/21 History loratadine [Claritin] 10 mg PO QAM 09/05/20 01/08/21 History vitamin B complex 1 tab PO QAM 09/27/20 01/08/21 History naloxone 4 mg/actuation nasal spray 4 mg INTRANASAL DIRECTED PRN #2 11/12/20 01/08/21 Rx ea duloxetine 60 mg capsule,delayed 120 mg PO QAM #60 cap 11/30/20 01/08/21 Rx release diclofenac sodium 1 % topical gel 4 g TOPICAL QID #300 g 12/03/20 01/08/21 Rx oxycodone-acetaminophen 5 mg-325 1 tab PO Q4H PRN #90 tab 12/07/20 01/08/21 Rx mg tablet ascorbic acid (vitamin C) 500 mg 1,000 mg PO BID tab 12/28/20 01/08/21 History tablet aspirin 81 mg tablet,delayed 81 mg PO QPM tab 12/28/20 01/08/21 History release gabapentin 600 mg tablet 300 mg PO .COMPLEX tab 12/28/20 01/08/21 History lansoprazole 30 mg capsule,delayed 30 mg PO QAM 12/28/20 01/08/21 History release melatonin 3 mg tablet 6 mg PO HS tab 12/28/20 01/08/21 History fentanyl 50 mcg/hr transdermal 1 patch TRANSDERMAL Q72H #10 ea 01/01/21 01/08/21 Rx patch collagenase clostridium histo. 250 1 applic TOPICAL DAILY #30 g 01/08/21 01/08/21 Rx unit/gram topical ointment fluticasone propionate 50 2 spray INTNAS DAILY PRN #47.4 gm 01/11/21 Rx mcg/actuation nasal spray,suspension Past Med/Surg History Medical History Acute hypoxemic respiratory failure Acute leg pain Anemia Anxiety Atherosclerosis of aorta Bacteremia due to Gram-negative bacteria Chronic left hip pain Chronic pain of lower extremity, bilateral Chronic pain syndrome Degenerative disc disease Depression DVT (deep venous thrombosis) possibly, treated inpatient directly following knee replacement. no problems since. Emphysema of lung Noted on chest CTs but not reported by patient. Follicular lymphoma currently monitoring and treating with Dr Moseley (oncology). awaiting mediport for chemo by Dr Chow Gastroesophageal reflux disease Hyperlipidemia Hypertension Leukocytosis Lumbar canal stenosis Mild aortic regurgitation Moderate aortic stenosis Moderate mitral regurgitation Myofascial pain Osteoarthritis Peripheral edema Currently, L >R, 2/2 lymphoma. Wearing compression socks. Persistent insomnia Piriformis syndrome Pneumonia due to 2019 novel coronavirus Post laminectomy syndrome Presence of intrathecal pump Urinary tract infection currently finishing abx (08/21/20). not recurrent infections typically Surgical History H/O cataract removal with insertion of prosthetic lens bilateral History of cholecystectomy 1978 History of colonoscopy History of knee replacement procedure of right knee 2002 History of laminectomy lumbar ~2013 Previous back surgery 2006,2007,2013 S/P hip replacement bilateral 2015, 2016 Status post laminectomy with spinal fusion lumbar, 2007 & 2008 Family History Father Abdominal aneurysm Colorectal cancer Grandmother (Paternal) Cancer Other No family history of adverse response to anesthesia Denies family history of Ovarian cancer Prostate cancer Myocardial infarction Breast cancer Social History Smoking Status: Former smoker Smoking End Date: QUIT 1991; Second Hand Exposure: No; Do You Dip or Chew Tobacco: No; Tobacco Cessation Education Requested by Patient: No Hx Alcohol Use: Yes Alcohol type: hard liquor Alcohol Intake Frequency: Monthly or Less Hx Substance Use: No Preferred Language: Cypriot Communication Ability: Effective Visual Impairment: Limited Hearing Ability: Normal Protection Manager Required: No Beliefs That Will Affect Care: None marital status: / Current Living Situation: Alone Current Living Situation Comment: FAMILY HAS BEEN STAYING WITH PT current occupational status: retired Other Information That Helps Us Care for You: No Feels Safe at Home: Yes Safety Concerns: Feels Safe At This Time Childhood Exposure to Second-Hand Smoke: Yes caffeine: Yes Dental Care, Regularly: No Physical Activity Frequency: Does not Exercise Seatbelt Use: always Sunscreen Use: Yes Assistive Devices: Walker Review of Systems Review of Systems: All systems reviewed & are unremarkable except as noted in HPI & below Physical Exam Constitutional: well developed; + not well nourished and no acute distress Eyes: PERRL, conjunctivae normal, anicteric sclerae ENMT: Ears: no external ear abnormality Nose: no external nose abnormality Mouth: + dry oral mucous membranes Neck: trachea midline, no thyromegaly Respiratory: normal respiratory effort, lungs clear to auscultation Cardiovascular: Rate/Rhythm: regular rhythm and + tachycardic Heart Sounds: no murmur Extremities: normal capillary refill; no calf tenderness and no pedal edema Gastrointestinal (Abdomen): normal bowel sounds, soft, nontender, no hepatosplenomegaly Skin: no rashes, warm and dry Neurologic: moves all extremities and awake; not confused Psychiatric: Orientation: alert Results & Data Results & Data ([facility]) Vital Signs (Past 12 Hours) Vital Signs Temp Pulse Resp BP Pulse Ox 01/08/21 12:30 107 H 20 97 01/08/21 11:33 107 H 16 89/62 L 94 01/08/21 11:27 106 H 19 86/61 L 91 01/08/21 10:39 36.2 C L 111 H 20 90/61 L 94 Diagnostic Findings PA CHEST WITH ABDOMINAL SERIES IMPRESSION: 1. Emphysematous change with no active disease in the chest. 2. There are mildly distended and gas-filled loops of small bowel with scattered air-fluid levels in the upright view. Gas is seen within the left colon and this likely represents a nonspecific enteritis. Correlate clinically for evidence of low-grade/developing bowel obstruction. Medications Administered ER medications given: Daptomycin 400 mg IV Zosyn 4.5 g IV Metronidazole 500 mg IV Vancomycin 500 mg p.o. NSS 1L @ 250ml/hr ECG Indication: SOB/dyspnea Rate (beats per minute): 107 Rhythm: sinus tachycardia Findings: + ST depression (Anterior) Comparison ECG Date: from (09/27/2020) Change: the following changes noted (ST depression is new) Code Status & VTE Plan Code Status Full VTE Prophylaxis Plan VTE Prophylaxis will be ordered: Yes PG Care Time/CCT Total # of Minutes Spent Total Time Spent with Patient: Total time spent is greater than 50% in coordination of care (as documented) at patient's floor/unit and/or counseling patient: Coding Level of Care Code 72337 Initial Inpt Care Lvl 3 Diagnoses Sepsis A41.9 C. difficile colitis A04.72 Chronic left hip pain M25.552; G89.29 Ulcer of left heel L97.429 Sacral ulcer L98.429 Moderate mitral regurgitation I34.0 (HFpEF) heart failure with preserved ejection fraction I50.31 Heart failure chronicity: acute Gastroesophageal reflux disease K21.9 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 Follicular lymphoma type: unspecified follicular type Lymphoma site: unspecified region DVT prophylaxis Z29.9 (1) (HFpEF) heart failure with preserved ejection fraction Heart failure chronicity: acute Qualified Code(s): I50.31 - Acute diastolic (congestive) heart failure (2) Follicular lymphoma Follicular lymphoma type: unspecified follicular type Lymphoma site: unspecified region Qualified Code(s): C82.90 - Follicular lymphoma, unspecif ied, unspecified site
[2021-01-08] MEDS ORDERED: POTASSIUM CHLORIDE CRTAB 20 MEQ TABCR PO STA (14:08)
[2021-01-08 15:22] LABS: Appearance Urine Clear (Clear); Bacteria Urine Automated Negative (Negative); Bilirubin Urine Negative (Negative); Blood Urine Negative (Negative); Color Urine Dark Yellow; Glucose Urine UA Negative (Negative); Ketones Urine Trace (Negative); Leukocyte Esterase Urine Negative (Negative); Nitrite Urine Negative (Negative); Protein Urine 1+ (Negative); Specific Gravity Urine 1.027 (1.000-1.030); Urobilinogen Urine Negative (Negative); pH Urine 5.5 (4.5-7.5)
[2021-01-08] MEDS ORDERED: OPTIRAY 320 100ml IV ONE (16:34)
--- NOTE | 2021-01-08 16:54 | CT Scan Report ---
CT SCAN OF THE ABDOMEN AND PELVIS WITH IV CONTRAST CLINICAL HISTORY: Enteritis. Generalized abdominal pain. COMPARISON STUDY: Abdominal CT dated 09/05/2020 and 08/12/2019. TECHNIQUE: Following the IV administration of 91 cc of Optiray 320, CT scan of the abdomen and pelvi s is performed from the lung bases to the proximal femora. Images are reviewed in the axial, sagittal , and coronal planes. IV contrast was administered without complication. A dose lowering technique wa s utilized adhering to the principles of ALARA. CT DOSE: 440.96 mGy.cm FINDINGS: Lung bases: The heart is normal in size and without pericardial effusion. There is mild aneurysmal di latation of the ascending thoracic aorta. Imaged portions measure up to 4.5 cm. The coronary arteries are densely calcified. Emphysematous change is noted at the lung bases. There is elevation of the ri ght hemidiaphragm with right basilar atelectasis. No airspace consolidation or pleural effusion is se en. Liver: The contrast-enhanced liver is normal in size, contour, and attenuation. There is minimal cent ral intrahepatic biliary ductal dilatation. The hepatic veins and portal veins are patent. Epigastric granulomas noted in the right lobe. Gallbladder: Surgically absent. Spleen: Normal in size and attenuation. Pancreas: Moderately atrophic and grossly unremarkable. Adrenal glands: A 2 cm left adrenal nodule is unchanged. The right adrenal gland is grossly unremarka ble. Kidneys: The contrast enhanced kidneys are atrophic and without hydronephrosis. The kidneys enhance s ymmetrically. Small renal cysts measure up to 2.1 cm. Abdominal vasculature: The abdominal aorta is normal in course and caliber noting advanced atheroscle rotic calcification. Bowel: There is significant wall thickening and mucosal edema seen throughout the colon with pericolo franky inflammation. Findings are consistent with a nonspecific pancolitis. No bowel obstruction is iden tified. There are fluid-filled loops of small bowel. The small bowel loops are normal in caliber. The appendix is nonvisualized. Peritoneum: There is no intraperitoneal free air or abdominal ascites. Lymphadenopathy: None. Pelvic viscera: Evaluation of the pelvis is severely degraded by streak artifact from bilateral hip a rthroplasties. The bladder is decompressed around a Noble catheter and cannot be evaluated. The uteru s is surgically absent. No adnexal lesion is identified. Electronic device is present within the left ventral pelvic wall. Skeletal structures: The skeletal structures are osteopenic. There is advanced lumbosacral spondylosi s with postlaminectomy change noted in the lower lumbar spine. Destructive endplate change and erosio n is seen at L5-S1. This has significantly progressed as compared to the 09/05/2020 examination. Sign ificant paravertebral edema is seen at this level. There are chronic minimal superior end plate compr ession deformities of T12 and L1. No lytic or blastic lesions are seen. Bilateral hip arthroplasties are in place. IMPRESSION: 1. Findings are consistent with a nonspecific pancolitis, likely on an infectious basis. 2. There are fluid-filled loops of normal caliber small bowel, likely representing an associated ente ritis. 3. Again seen is aneurysmal dilatation of the ascending thoracic aorta. This measures up to 4.5 cm. 4. Advanced emphysema. 5. There is destructive endplate change and erosion again seen at L5-S1 with surrounding paravertebra l edema. This has been seen on multiple prior examinations, but has somewhat progressed as compared t o the 09/05/2020 examination. This likely represents degenerative change/osteonecrosis. Superimposed infection would be impossible exclude and clinical correlation will be required. 6. There is no bowel obstruction. 7. Additional findings as above. ACT 112: Negative or not required by law. Electronically signed by: Danyel Means M.D. 01/08/2021 4:53 PM
[2021-01-08] MEDS ORDERED: ACETAMINOPHEN 325 MG TAB PO PRN (16:59)
[2021-01-08] MEDS ORDERED: ALUMINUM/MAGNESIUM SUSP 30 ML UDC PO PRN (16:59)
--- NOTE | 2021-01-08 17:02 | Electrocardiogram Report ---
Test Reason : Blood Pressure : / mmHG Vent. Rate : 107 BPM Atrial Rate : 107 BPM P-R Int : 198 ms QRS Dur : 086 ms QT Int : 350 ms P-R-T Axes : 057 016 041 degrees QTc Int : 467 ms Sinus tachycardia Possible Left atrial enlargement Nonspecific ST and T wave abnormality Abnormal ECG When compared with ECG of 27-SEP-2020 12:57, ST now depressed in Anterior leads Nonspecific T wave abnormality now evident in Anterior leads Confirmed by Scott Aiken ([id number]) on 01/08/2021 5:02:43 PM Referred By: Confirmed By:Scott Aiken
[2021-01-08] MEDS: POTASSIUM CHLORIDE 40 MEQ in SODIUM CHLORIDE 0.9% 1000ML 1,000 ML IV SCH (20:12)
[2021-01-08] MEDS: CHECK fentaNYL PATCH PLACEMENT SCH ×2 (20:15→23:51)
[2021-01-08] MEDS: ENOXAPARIN INJ 40 MG/0.4 ML SYR SQ SCH (20:16)
[2021-01-08] MEDS: ASPIRIN 81 MG ECTAB PO SCH (20:18)
[2021-01-08] MEDS: VANCOMYCIN HCL 500 MG/10 ML SOLN PO SCH ×2 (20:18→23:52)
[2021-01-08] MEDS: RASPBERRY SYRUP 5 ML UDP PO SCH ×2 (20:18→23:52)
[2021-01-08] MEDS: metroNIDAZOLE 500 MG/100 ML BAG IV SCH (20:19)
[2021-01-08] MEDS: MELATONIN 3 MG TAB PO SCH (20:19)
[2021-01-08] MEDS: GABAPENTIN 600 MG TAB PO SCH (20:20)
[2021-01-08] MEDS: ASCORBIC ACID 500 MG TAB PO SCH (20:20)
[2021-01-08] MEDS: DICLOFENAC SOD 1% GEL 100 GM TUBE EXT SCH ×2 (20:22→20:24)
[2021-01-09] MEDS: POTASSIUM CHLORIDE 40 MEQ in SODIUM CHLORIDE 0.9% 1000ML 1,000 ML IV SCH (04:45)
[2021-01-09] MEDS ORDERED: SODIUM CHLORIDE 0.9% 500 ML IV SCH (05:00)
[2021-01-09] MEDS: metroNIDAZOLE 500 MG/100 ML BAG IV SCH ×3 (05:33→20:45)
[2021-01-09] MEDS: RASPBERRY SYRUP 5 ML UDP PO SCH ×4 (05:34→23:33)
[2021-01-09] MEDS: VANCOMYCIN HCL 500 MG/10 ML SOLN PO SCH ×4 (05:34→23:33)
[2021-01-09 07:45] LABS: Hematocrit (blood only) 33.1 % (37-47); Hemoglobin 10.5 g/dL (12.0-16.0); Mean Corpuscular Hemoglobin 25.2 pg (25-34); Mean Corpuscular Hgb Conc 31.7 g/dL (32-36); Mean Corpuscular Volume 79.6 fL (80-100); Mean Platelet Volume 9.8 fL (7.4-10.4); Platelet Count 523 K/uL (130-400); RDW Coefficient of Variation 17.9 % (11.5-14.5); RDW Standard Deviation 52.7 fL (36.4-46.3); Red Blood Count 4.16 M/uL (4.2-5.4); White Blood Count 27.86 K/uL (4.8-10.8)
[2021-01-09 08:15] LABS: BUN Creatinine Ratio 26.2 (10-20); Calcium 8.8 mg/dl (8.5-10.1); Creatinine Clr Calc Pharmacy 55.2 ml/min; Est GFR (African American) 76.1; Est GFR (Non-African American) 65.6; Potassium 3.5 mmol/L (3.5-5.1)
[2021-01-09 08:21] LABS: Basophils # (auto) 0.03 K/uL (0-0.2); Basophils % (auto) 0.1 %; Echinocytes 1+; Eosinophils # (auto) 0.07 K/uL (0-0.5); Eosinophils % (auto) 0.3 %; Immature Granulocytes # (auto) 0.13 K/uL (0.00-0.02); Immature Granulocytes % (auto) 0.5 %; Lymphocytes # (auto) 1.05 K/uL (1.2-3.4); Lymphocytes % (auto) 3.8 %; Monocytes # (auto) 2.05 K/uL (0.11-0.59); Monocytes % (auto) 7.4 %; Neutrophils # (auto) 24.53 K/uL (1.4-6.5); Neutrophils % (auto) 87.9 %; Ovalocytes 1+
[2021-01-09] MEDS ORDERED: GABAPENTIN 600 MG TAB PO SCH (09:00)
[2021-01-09] MEDS: PANTOprazole 40 MG TAB PO SCH (09:30)
[2021-01-09] MEDS: VITAMIN B COMPLEX TAB PO SCH (09:30)
[2021-01-09] MEDS: MULTIVITAMIN TAB PO SCH (09:31)
[2021-01-09] MEDS: CALCIUM 600MG + VIT D 400 IU TAB PO SCH (09:31)
[2021-01-09] MEDS: DULoxetine HCL 60 MG CAP PO SCH (09:31)
[2021-01-09] MEDS: FERROUS SULFATE 325 MG TAB PO SCH (09:31)
[2021-01-09] MEDS: GABAPENTIN 300 MG CAP PO SCH (09:31)
[2021-01-09] MEDS: LORATADINE 10 MG TAB PO SCH (09:31)
[2021-01-09] MEDS: CHOLECALCIFEROL 1,000 UNITS 25 MCG TAB PO SCH (09:32)
[2021-01-09] MEDS: ASCORBIC ACID 500 MG TAB PO SCH ×2 (09:32→20:44)
--- NOTE | 2021-01-09 09:37 | Hospitalist Progress Note ---
Date of Service January 09, 2021 Assessment & Plan (1) Sepsis: due to C diff colitis no evidence of pneumonia, no UTI on UA, no other significant findings on CT abd/pelvis vitals are stable, no fever, WBC down to 27k treat the C diff with Vanco PO and Flagyl IV received two liters of NSS, no further fluids needed at this time (2) C. difficile colitis: continue vancomycin 500 mg 4 times daily with IV metronidazole 500 mg every eight [address]. [address] abdomen pelvis shows pancolitis and enteritis, no other findings will add some Questran BID for symptom relief WBC down to 27k from 31k likely here several days to get control of infection (3) Chronic left hip pain: PT/OT ordered, she was able to stand up and walk to chair this morning (4) Ulcer of left heel: No surrounding cellulitis (5) Sacral ulcer: (6) Moderate mitral regurgitation: (7) (HFpEF) heart failure with preserved ejection fraction: examines euvolemic, she got 2 liters of IV fluids, no further fluids planned (8) Gastroesophageal reflux disease: no active symptoms (9) Follicular lymphoma: Admission and Anticipated Discharge Date Admission Date: January 08, 2021 Subjective patient says she feels a little better than yesterday, still having diarrhea her abdomen feels a little uneasy, she could not eat much for breakfast she did not have nausea, just felt a little uneasy, no severe abdominal pain reviewed the chart reviewed her labs, WBC coming down to 27k from 31k, Hb stable at 10, Cr and electrolytes stable CT abd/pelvis showed a pancolitis and enteritis, consistent with her C diff infection she denies fever/chills, chest pain, cough, dyspnea she is feeling a little weak, she worked with OT Review of Systems Review of Systems: All systems reviewed & are unremarkable except as noted in Subjective Constitutional: + weakness; no fever Respiratory: no cough and no dyspnea Cardiovascular: no chest pain Gastrointestinal: + early satiety and + diarrhea/loose stools; no abdominal pain, no nausea, no vomiting and no constipation Physical Exam Constitutional: WD/WN, vitals as above + ill appearing and + frail appearing Neck: trachea midline, no thyromegaly Respiratory: normal respiratory effort, lungs clear to auscultation Cardiovascular: RRR, no murmur, no edema Gastrointestinal (Abdomen): normal bowel sounds, soft, nontender, no hepatosplenomegaly Musculoskeletal: no cyanosis or clubbing, extremities motor strength 5/5 Skin: no rashes, warm and dry Neurologic: patellar DTR's 2+ bilat, sensation intact and PERRL, EOMI, accommodation nl, no face palsy, no dysarthria Psychiatric: A+Ox3, euthymic affect Lymphatic: no cervical or axillary lymphadenopathy Results & Data Results & Data ([facility]) Vital Signs (Past 12 Hours) Vital Signs Temp Pulse Resp BP BP Pulse Ox 01/09/21 07:35 37.1 C 107 H 20 105/72 91 01/09/21 04:00 39.4 C H 123 H 20 99/68 L 92 01/08/21 23:59 37.7 C H 86 20 105/71 91 Laboratory Results Laboratory Results - last 24 hr 01/08/21 01/08/21 01/08/21 11:10 11:23 11:23 WBC 31.90 H* RBC 4.33 Hgb 10.8 L Hct 34.4 L MCV 79.4 L MCH 24.9 L MCHC 31.4 L RDW Std Deviation 51.8 H RDW Coeff of Inge 17.6 H Plt Count 495 H MPV 9.6 Immature Gran % (Auto) 0.4 Neut % (Auto) 89.6 Lymph % (Auto) 3.9 [place] % (Auto) 5.8 Eos % (Auto) 0.2 Baso % (Auto) 0.1 Neut # (Auto) 28.58 H Lymph # (Auto) 1.26 [place] # (Auto) 1.86 H Eos # (Auto) 0.05 Baso # (Auto) 0.02 Immature Gran # (Auto) 0.13 H Toxic Granulation 1+ Toxic Vacuolation 2+ Ovalocytes Echinocytes Sodium 133 L Potassium 3.1 L Chloride 98 Carbon Dioxide 26 Anion Gap 8.0 BUN 27 H Creatinine 0.82 Est Cr Clr Drug Dosing 58.5 Est GFR ( Amer) 81.7 Est GFR (Non-Af Amer) 70.5 BUN/Creatinine Ratio 32.5 H Glucose 97 Lactate Calcium 9.8 Magnesium 2.0 Total Bilirubin 0.8 AST 10 L ALT 16 Alkaline Phosphatase 118 H Troponin I < 0.015 Total Protein 7.3 Albumin 2.3 L Globulin 5.0 H Albumin/Globulin Ratio 0.5 L Procalcitonin Urine Color Urine Appearance Urine pH Ur Specific [place] Urine Protein Urine Glucose (UA) Urine Ketones Urine Blood Urine Nitrite Urine Bilirubin Urine Urobilinogen Ur Leukocyte Esterase Urine WBC (Auto) Urine RBC (Auto) U Hyaline Cast (Auto) U Epithel Cells (Auto) Urine Bacteria (Auto) POC Stool Occult Blood Stl C. diff Tox B Gene Positive Cdiff Gene H Stl C.difficile Tox A&B Positive Cdiff Toxin A* COVID-19 Eval Order SARS-CoV-2, RNA, NAAT Blood Type Antibody Screen 01/08/21 01/08/21 01/08/21 11:23 13:25 13:25 WBC RBC Hgb Hct MCV MCH MCHC RDW Std Deviation RDW Coeff of Inge Plt Count MPV Immature Gran % (Auto) Neut % (Auto) Lymph % (Auto) [place] % (Auto) Eos % (Auto) Baso % (Auto) Neut # (Auto) Lymph # (Auto) [place] # (Auto) Eos # (Auto) Baso # (Auto) Immature Gran # (Auto) Toxic Granulation Toxic Vacuolation Ovalocytes Echinocytes Sodium Potassium Chloride Carbon Dioxide Anion Gap BUN Creatinine Est Cr Clr Drug Dosing Est GFR ( Amer) Est GFR (Non-Af Amer) BUN/Creatinine Ratio Glucose Lactate Calcium Magnesium Total Bilirubin AST ALT Alkaline Phosphatase Troponin I Total Protein Albumin Globulin Albumin/Globulin Ratio Procalcitonin Urine Color Urine Appearance Urine pH Ur Specific [place] Urine Protein Urine Glucose (UA) Urine Ketones Urine Blood Urine Nitrite Urine Bilirubin Urine Urobilinogen Ur Leukocyte Esterase Urine WBC (Auto) Urine RBC (Auto) U Hyaline Cast (Auto) U Epithel Cells (Auto) Urine Bacteria (Auto) POC Stool Occult Blood Stl C. diff Tox B Gene Stl C.difficile Tox A&B COVID-19 Eval [facility] SARS-CoV-2, RNA, NAAT NEGATIVE Blood Type B Positive Antibody Screen NEGATIVE 01/08/21 01/08/21 01/08/21 13:32 13:32 14:40 WBC RBC Hgb Hct MCV MCH MCHC RDW Std Deviation RDW Coeff of Inge Plt Count MPV Immature Gran % (Auto) Neut % (Auto) Lymph % (Auto) [place] % (Auto) Eos % (Auto) Baso % (Auto) Neut # (Auto) Lymph # (Auto) [place] # (Auto) Eos # (Auto) Baso # (Auto) Immature Gran # (Auto) Toxic Granulation Toxic Vacuolation Ovalocytes Echinocytes Sodium Potassium Chloride Carbon Dioxide Anion Gap BUN Creatinine Est Cr Clr Drug Dosing Est GFR ( Amer) Est GFR (Non-Af Amer) BUN/Creatinine Ratio Glucose Lactate 1.3 Calcium Magnesium Total Bilirubin AST ALT Alkaline Phosphatase Troponin I Total Protein Albumin Globulin Albumin/Globulin Ratio Procalcitonin 1.50 H Urine Color Dark Yellow Urine Appearance Clear Urine pH 5.5 Ur Specific [place] 1.027 Urine Protein 1+ H Urine Glucose (UA) Negative Urine Ketones Trace H Urine Blood Negative Urine Nitrite Negative Urine Bilirubin Negative Urine Urobilinogen Negative Ur Leukocyte Esterase Negative Urine WBC (Auto) 1-5 Urine RBC (Auto) 5-10 H U Hyaline Cast (Auto) 1-5 U Epithel Cells (Auto) 5-10 H Urine Bacteria (Auto) Negative POC Stool Occult Blood Stl C. diff Tox B Gene Stl C.difficile Tox A&B COVID-19 Eval Order SARS-CoV-2, RNA, NAAT Blood Type Antibody Screen 01/08/21 01/09/21 01/09/21 Unknown 07:20 07:20 WBC 27.86 H RBC 4.16 L Hgb 10.5 L Hct 33.1 L MCV 79.6 L MCH 25.2 MCHC 31.7 L RDW Std Deviation 52.7 H RDW Coeff of Inge 17.9 H Plt Count 523 H MPV 9.8 Immature Gran % (Auto) 0.5 Neut % (Auto) 87.9 Lymph % (Auto) 3.8 [place] % (Auto) 7.4 Eos % (Auto) 0.3 Baso % (Auto) 0.1 Neut # (Auto) 24.53 H Lymph # (Auto) 1.05 L [place] # (Auto) 2.05 H Eos # (Auto) 0.07 Baso # (Auto) 0.03 Immature Gran # (Auto) 0.13 H Toxic Granulation Toxic Vacuolation Ovalocytes 1+ Echinocytes 1+ Sodium 135 L Potassium 3.5 Chloride 105 Carbon Dioxide 21 Anion Gap 9.0 BUN 23 H Creatinine 0.87 Est Cr Clr Drug Dosing 55.2 Est GFR ( Amer) 76.1 Est GFR (Non-Af Amer) 65.6 BUN/Creatinine Ratio 26.2 H Glucose 106 H Lactate Calcium 8.8 Magnesium Total Bilirubin AST ALT Alkaline Phosphatase Troponin I Total Protein Albumin Globulin Albumin/Globulin Ratio Procalcitonin Urine Color Urine Appearance Urine pH Ur Specific [place] Urine Protein Urine Glucose (UA) Urine Ketones Urine Blood Urine Nitrite Urine Bilirubin Urine Urobilinogen Ur Leukocyte Esterase Urine WBC (Auto) Urine RBC (Auto) U Hyaline Cast (Auto) U Epithel Cells (Auto) Urine Bacteria (Auto) POC Stool Occult Blood Positive A Stl C. diff Tox B Gene Stl C.difficile Tox A&B COVID-19 Eval Order SARS-CoV-2, RNA, NAAT Blood Type Antibody Screen Medications Administered Current Inpatient Medications Acetaminophen (Acetaminophen 325 Mg Tab) 650 mg PO Q4H PRN PRN Reason: Pain or Fever Stop: 02/07/21 16:58 Last Admin: 01/09/21 04:45 Dose: 650 mg Documented by: Al Hydrox/Mg Hydrox/Simethicone (Aluminum/Magnesium Susp 30 Ml Udc) 15 ml PO Q4H PRN PRN Reason: Dyspepsia Stop: 02/07/21 16:58 Ascorbic Acid (Ascorbic Acid 500 Mg Tab) 1,000 mg PO BID [facility] Stop: 02/07/21 20:59 Last Admin: 01/09/21 09:32 Dose: 1,000 mg Documented by: Aspirin (Aspirin 81 Mg Ectab) 81 mg PO QPM [facility] Stop: 02/07/21 20:59 Last Admin: 01/08/21 20:18 Dose: 81 mg Documented by: Diclofenac Sodium (Diclofenac Sod 1% Gel 100 Gm Tube) 4 gm EXT QID [facility] Stop: 02/07/21 16:59 Last Admin: 01/08/21 20:24 Dose: Not Given Documented by: Duloxetine HCl (Duloxetine Hcl 60 Mg Cap) 120 mg PO QAM [facility] Stop: 02/08/21 08:59 Last Admin: 01/09/21 09:31 Dose: 120 mg Documented by: Enoxaparin Sodium (Enoxaparin Inj 40 Mg/0.4 Ml Syr) 40 mg SQ Q24H [facility] Stop: 02/07/21 17:59 Last Admin: 01/08/21 20:16 Dose: 40 mg Documented by: Fentanyl (Fentanyl 50 Mcg/Hr Tdsy) 50 mcg TD Q72H [facility] Stop: 01/25/21 08:59 Ferrous Sulfate (Ferrous Sulfate 325 Mg Tab) [facility] Stop: 02/08/21 08:59 Last Admin: 01/09/21 09:31 Dose: 325 mg Documented by: Gabapentin (Gabapentin 300 Mg Cap) 300 [facility] Stop: 02/08/21 08:59 Last Admin: 01/09/21 09:31 Dose: 300 mg Documented by: Gabapentin (Gabapentin 600 Mg Tab) [address] [facility] Stop: 02/07/21 20:59 Last Admin: 01/08/21 20:20 Dose: 600 mg Documented by: Metronidazole (Flagyl) 500 mg in 100 mls @ 100 mls/hr IV Q8H [facility]; Protocol Stop: 01/18/21 20:59 Last Infusion: 01/09/21 08:27 Dose: Infused Documented by: Potassium Chloride 40 meq/ (Sodium Chloride) 1,020 mls @ 125 mls/hr IV .Q8H10M [facility] Stop: 01/09/21 09:49 Last Admin: 01/09/21 04:45 Dose: 125 mls/hr Documented by: Loratadine (Loratadine 10 Mg Tab) [facility] Stop: 02/08/21 08:59 Last Admin: 01/09/21 09:31 Dose: 10 mg Documented by: Melatonin (Melatonin 3 Mg Tab) [address] [facility] Stop: 02/07/21 20:59 Last Admin: 01/08/21 20:19 Dose: 6 mg Documented by: Miscellaneous (Fentanyl Patch Remove & Waste) 1 ea N/A Q3D [facility] Stop: 02/10/21 08:58 Miscellaneous (Check Fentanyl Patch Placement) 1 ea N/A QS [facility] Stop: 02/07/21 17:59 Last Admin: 01/08/21 23:51 Dose: 1 ea Documented by: Multivitamins (Multivitamin Tab) 1 [facility] Stop: 02/08/21 08:59 Last Admin: 01/09/21 09:31 Dose: 1 tab Documented by: Multivitamins/Minerals (Calcium 600mg + Vit D 400 Iu Tab) 1 tab PO QAM [facility] Stop: 02/08/21 08:59 Last Admin: 01/09/21 09:31 Dose: 1 tab Documented by: Oxycodone/Acetaminophen (Oxycodone/Acetaminophen 5mg/325mg Tab) 1 tab PO Q4H PRN PRN Reason: pain Stop: 01/22/21 16:58 Pantoprazole Sodium (Pantoprazole 40 Mg Tab) 40 mg PO QAM [facility]; Protocol Stop: 02/08/21 08:59 Last Admin: 01/09/21 09:30 Dose: 40 mg Documented by: Raspberry (Raspberry Syrup 5 Ml Udp) 5 ml PO Q6 [facility] Stop: 01/22/21 17:59 Last Admin: 01/09/21 05:34 Dose: 5 ml Documented by: Vancomycin HCl (Vancomycin Hcl 500 Mg/10 Ml Soln) 500 mg PO Q6 [facility] Stop: 01/18/21 17:59 Last Admin: 01/09/21 05:34 Dose: 500 mg Documented by: Vitamin B Complex (Vitamin B Complex Tab) 1 tab PO QAM [facility] Stop: 02/08/21 08:59 Last Admin: 01/09/21 09:30 Dose: 1 tab Documented by: Vitamin D (Cholecalciferol 1,000 Units 25 Mcg Tab) 2,000 [facility] Stop: 02/08/21 08:59 Last Admin: 01/09/21 09:32 Dose: 2,000 units Documented by: PG Care Time/CCT Total # of Minutes Spent Total Time Spent with Patient: Total time spent is greater than 50% in coordination of care (as documented) at patient's floor/unit and/or counseling patient: Coding Level of Care Code 80194 Subseq Hosp Care Lvl 3 Diagnoses Sepsis A41.9 C. difficile colitis A04.72 Chronic left hip pain M25.552; G89.29 Ulcer of left heel L97.429 Sacral ulcer L98.429 Moderate mitral regurgitation I34.0 (HFpEF) heart failure with preserved ejection fraction I50.31 Heart failure chronicity: acute Gastroesophageal reflux disease K21.9 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 Follicular lymphoma type: unspecified follicular type Lymphoma site: unspecified region (1) (HFpEF) heart failure with preserved ejection fraction Heart failure chronicity: acute Qualified Code(s): I50.31 - Acute diastolic (congestive) heart failure (2) Follicular lymphoma Follicular lymphoma type: unspecified follicular type Lymphoma site: unspecified region Qualified Code(s): C82.90 - Follicular lymphoma, unspecified, unspecified site
[2021-01-09] MEDS: CHECK fentaNYL PATCH PLACEMENT SCH ×3 (09:50→23:25)
[2021-01-09] MEDS: DICLOFENAC SOD 1% GEL 100 GM TUBE EXT SCH ×4 (11:52→20:46)
[2021-01-09] MEDS: CHOLESTYRAMINE LIGHT 4 GM PKT PO SCH ×2 (11:53→20:47)
[2021-01-09] MEDS: ENOXAPARIN INJ 40 MG/0.4 ML SYR SQ SCH (18:25)
[2021-01-09] MEDS: MELATONIN 3 MG TAB PO SCH (20:45)
[2021-01-09] MEDS: ASPIRIN 81 MG ECTAB PO SCH (20:45)
[2021-01-09] MEDS: GABAPENTIN 600 MG TAB PO SCH (20:48)
[2021-01-10] MEDS: RASPBERRY SYRUP 5 ML UDP PO SCH ×3 (05:29→18:00)
[2021-01-10] MEDS: VANCOMYCIN HCL 500 MG/10 ML SOLN PO SCH ×3 (05:29→18:00)
[2021-01-10] MEDS: metroNIDAZOLE 500 MG/100 ML BAG IV SCH ×3 (05:29→20:55)
[2021-01-10 08:08] LABS: Hematocrit (blood only) 33.7 % (37-47); Hemoglobin 10.7 g/dL (12.0-16.0); Mean Corpuscular Hemoglobin 25.2 pg (25-34); Mean Corpuscular Hgb Conc 31.8 g/dL (32-36); Mean Corpuscular Volume 79.3 fL (80-100); Mean Platelet Volume 9.3 fL (7.4-10.4); Platelet Count 604 K/uL (130-400); RDW Standard Deviation 52.6 fL (36.4-46.3); Red Blood Count 4.25 M/uL (4.2-5.4); White Blood Count 29.56 K/uL (4.8-10.8)
[2021-01-10 08:24] LABS: BUN Creatinine Ratio 31.3 (10-20); Calcium 9.6 mg/dl (8.5-10.1); Est GFR (Non-African American) 78.5; Magnesium 1.9 mg/dl (1.8-2.4); Potassium 3.7 mmol/L (3.5-5.1)
[2021-01-10 08:32] LABS: Basophils # (auto) 0.06 K/uL (0-0.2); Basophils % (auto) 0.2 %; Echinocytes 1+; Eosinophils # (auto) 0.76 K/uL (0-0.5); Eosinophils % (auto) 2.6 %; Immature Granulocytes # (auto) 0.16 K/uL (0.00-0.02); Immature Granulocytes % (auto) 0.5 %; Lymphocytes # (auto) 1.09 K/uL (1.2-3.4); Lymphocytes % (auto) 3.7 %; Monocytes # (auto) 1.81 K/uL (0.11-0.59); Monocytes % (auto) 6.1 %; Neutrophils # (auto) 25.68 K/uL (1.4-6.5); Neutrophils % (auto) 86.9 %; Ovalocytes 1+; Tear Drop Cells 1+
[2021-01-10] MEDS: CHECK fentaNYL PATCH PLACEMENT SCH ×2 (08:50→17:07)
[2021-01-10] MEDS: PANTOprazole 40 MG TAB PO SCH (08:51)
[2021-01-10] MEDS: CHOLESTYRAMINE LIGHT 4 GM PKT PO SCH ×2 (08:51→20:55)
[2021-01-10] MEDS: ASCORBIC ACID 500 MG TAB PO SCH ×2 (08:51→21:03)
[2021-01-10] MEDS: LORATADINE 10 MG TAB PO SCH (08:51)
[2021-01-10] MEDS: DULoxetine HCL 60 MG CAP PO SCH (08:51)
[2021-01-10] MEDS: FERROUS SULFATE 325 MG TAB PO SCH (08:51)
[2021-01-10] MEDS: VITAMIN B COMPLEX TAB PO SCH (08:51)
[2021-01-10] MEDS: CHOLECALCIFEROL 1,000 UNITS 25 MCG TAB PO SCH (08:51)
[2021-01-10] MEDS: MULTIVITAMIN TAB PO SCH (08:52)
[2021-01-10] MEDS: CALCIUM 600MG + VIT D 400 IU TAB PO SCH (08:52)
[2021-01-10] MEDS: GABAPENTIN 300 MG CAP PO SCH (08:52)
[2021-01-10] MEDS: DICLOFENAC SOD 1% GEL 100 GM TUBE EXT SCH ×4 (08:52→20:59)
--- NOTE | 2021-01-10 12:31 | Hospitalist Progress Note ---
Date of Service January 10, 2021 Assessment & Plan (1) Sepsis: due to C diff colitis no evidence of pneumonia, no UTI on UA, no other significant findings on CT abd/pelvis vitals are stable, no fever for over 24 hours, WBC is 29k treat the C diff with Vanco PO and Flagyl IV received two liters of NSS, no further fluids needed at this time anticipate several more days in the hospital (2) C. difficile colitis: continue vancomycin 500 mg 4 times daily with IV metronidazole 500 mg every [address] abdomen pelvis shows colitis and enteritis, no other significant findings (3) Chronic left hip pain: Outpatient management deferred due to ongoing C. difficile, Covid and bacterial pneumonia PT/OT (4) Ulcer of left heel: No surrounding cellulitis (5) Sacral ulcer: No surrounding cellulitis suspected Consult wound care (6) Moderate mitral regurgitation: Noted (7) (HFpEF) heart failure with preserved ejection fraction: chronic, no acute failure examines euvolemic today (8) Gastroesophageal reflux disease: Switch lansoprazole to pantoprazole as per hospital formulary. (9) Follicular lymphoma: Notable history for this although management has been deferred due to recurrent infections. (10) DVT prophylaxis: Lovenox 40 mg SQ daily Admission and Anticipated Discharge Date Admission Date: January 08, 2021 Subjective patient doing okay, still having diarrhea but a lot less frequent than prior to admission vitals are stable, no fever WBC still high at 29k, Cr and electrolytes stable no abdominal pain, she had some bloating but relieved with passing flatus she is eating okay, not great she has some dyspnea on exertion but not at rest, no hypoxemia, no chest pain, no cough, no nausea discussed that she will be here a few more days, she understands stool culture was negative for any other bacterial growth Review of Systems Review of Systems: All systems reviewed & are unremarkable except as noted in Subjective Gastrointestinal: + diarrhea/loose stools Physical Exam Constitutional: WD/WN, vitals as above + frail appearing Neck: trachea midline, no thyromegaly Respiratory: normal respiratory effort, lungs clear to auscultation Cardiovascular: Rate/Rhythm: regular rhythm and + tachycardic Heart Sounds: normal S1, normal S2 and + murmur Vessels: no JVD Extremities: normal capillary refill; no edema Gastrointestinal (Abdomen): normal bowel sounds, soft, nontender, no hepatosplenomegaly Musculoskeletal: no cyanosis or clubbing, extremities motor strength 5/5 Skin: no rashes, warm and dry Neurologic: patellar DTR's 2+ bilat, sensation intact and PERRL, EOMI, accommodation nl, no face palsy, no dysarthria Psychiatric: A+Ox3, euthymic affect Lymphatic: no cervical or axillary lymphadenopathy Results & Data Results & Data ([facility]) Vital Signs (Past 12 Hours) Vital Signs Temp Pulse Pulse Resp BP BP Pulse Ox 01/10/21 11:00 36.4 C L 110 H 20 105/67 95 01/10/21 08:00 119 H 01/10/21 07:21 37.1 C 118 H 18 118/78 01/10/21 02:59 36.9 C 105 H 22 109/78 93 Laboratory Results Laboratory Results - last 24 hr 01/10/21 01/10/21 07:56 07:56 WBC 29.56 H RBC 4.25 Hgb 10.7 L Hct 33.7 L MCV 79.3 L MCH 25.2 MCHC 31.8 L RDW Std Deviation 52.6 H RDW Coeff of Inge 18.0 H Plt Count 604 H MPV 9.3 Immature Gran % (Auto) 0.5 Neut % (Auto) 86.9 Lymph % (Auto) 3.7 [place] % (Auto) 6.1 Eos % (Auto) 2.6 Baso % (Auto) 0.2 Neut # (Auto) 25.68 H Lymph # (Auto) 1.09 L [place] # (Auto) 1.81 H Eos # (Auto) 0.76 H Baso # (Auto) 0.06 Immature Gran # (Auto) 0.16 H Tear Drop Cells 1+ Ovalocytes 1+ Echinocytes 1+ Sodium 134 L Potassium 3.7 Chloride 105 Carbon Dioxide 23 Anion Gap 6.0 BUN 23 H Creatinine 0.75 Est Cr Clr Drug Dosing 64.0 Est GFR ( Amer) 91.0 Est GFR (Non-Af Amer) 78.5 BUN/Creatinine Ratio 31.3 H Glucose 105 H Calcium 9.6 Magnesium 1.9 Medications Administered Current Inpatient Medications Acetaminophen (Acetaminophen 325 Mg Tab) 650 mg PO Q4H PRN PRN Reason: Pain or Fever Stop: 02/07/21 16:58 Last Admin: 01/09/21 04:45 Dose: 650 mg Documented by: Al Hydrox/Mg Hydrox/Simethicone (Aluminum/Magnesium Susp 30 Ml Udc) 15 ml PO Q4H PRN PRN Reason: Dyspepsia Stop: 02/07/21 16:58 Last Admin: 01/09/21 11:52 Dose: 15 ml Documented by: Ascorbic Acid (Ascorbic Acid 500 Mg Tab) 1,000 mg PO BID [facility] Stop: 02/07/21 20:59 Last Admin: 01/10/21 08:51 Dose: 1,000 mg Documented by: Aspirin (Aspirin 81 Mg Ectab) 81 mg PO QPM [facility] Stop: 02/07/21 20:59 Last Admin: 01/09/21 20:45 Dose: 81 mg Documented by: Cholestyramine Resin (Cholestyramine Light 4 Gm Pkt) 4 gm PO BID@0800,1999 [facility] Stop: 02/08/21 09:59 Last Admin: 01/10/21 08:51 Dose: 4 gm Documented by: Diclofenac Sodium (Diclofenac Sod 1% Gel 100 Gm Tube) 4 gm EXT QID [facility] Stop: 02/07/21 16:59 Last Admin: 01/10/21 08:52 Dose: Not Given Documented by: Duloxetine HCl (Duloxetine Hcl 60 Mg Cap) 120 mg PO QAM [facility] Stop: 02/08/21 08:59 Last Admin: 01/10/21 08:51 Dose: 120 mg Documented by: Enoxaparin Sodium (Enoxaparin Inj 40 Mg/0.4 Ml Syr) 40 mg SQ Q24H [facility] Stop: 02/07/21 17:59 Last Admin: 01/09/21 18:25 Dose: 40 mg Documented by: Fentanyl (Fentanyl 50 Mcg/Hr Tdsy) 50 mcg TD Q72H [facility] Stop: 01/25/21 08:59 Ferrous Sulfate (Ferrous Sulfate 325 Mg Tab) 325 mg PO QAM [facility] Stop: 02/08/21 08:59 Last Admin: 01/10/21 08:51 Dose: 325 mg Documented by: Gabapentin (Gabapentin 300 Mg Cap) 300 mg PO QAM [facility] Stop: 02/08/21 08:59 Last Admin: 01/10/21 08:52 Dose: 300 mg Documented by: Gabapentin (Gabapentin 600 Mg Tab) 600 mg PO HS [facility] Stop: 02/07/21 20:59 Last Admin: 01/09/21 20:48 Dose: 600 mg Documented by: Metronidazole (Flagyl) 500 mg in 100 mls @ 100 mls/hr IV Q8H [facility]; Protocol Stop: 01/18/21 20:59 Last Infusion: 01/10/21 06:50 Dose: Infused Documented by: Loratadine (Loratadine 10 Mg Tab) 10 mg PO QAM [facility] Stop: 02/08/21 08:59 Last Admin: 01/10/21 08:51 Dose: 10 mg Documented by: Melatonin (Melatonin 3 Mg Tab) 6 mg PO HS [facility] Stop: 02/07/21 20:59 Last Admin: 01/09/21 20:45 Dose: 6 mg Documented by: Miscellaneous (Fentanyl Patch Remove & Waste) 1 ea N/A Q3D [facility] Stop: 02/10/21 08:58 Miscellaneous (Check Fentanyl Patch Placement) 1 ea N/A QS [facility] Stop: 02/07/21 17:59 Last Admin: 01/10/21 08:50 Dose: 1 ea Documented by: Multivitamins (Multivitamin Tab) 1 tab PO QAM [facility] Stop: 02/08/21 08:59 Last Admin: 01/10/21 08:52 Dose: 1 tab Documented by: Multivitamins/Minerals (Calcium 600mg + Vit D 400 Iu Tab) 1 tab PO QAM [facility] Stop: 02/08/21 08:59 Last Admin: 01/10/21 08:52 Dose: 1 tab Documented by: Oxycodone/Acetaminophen (Oxycodone/Acetaminophen 5mg/325mg Tab) 1 tab PO Q4H PRN PRN Reason: pain Stop: 01/22/21 16:58 Pantoprazole Sodium (Pantoprazole 40 Mg Tab) [facility] Protocol Stop: 02/08/21 08:59 Last Admin: 01/10/21 08:51 Dose: 40 mg Documented by: Raspberry (Raspberry Syrup 5 Ml Udp) 5 ml PO Q6 [facility] Stop: 01/22/21 17:59 Last Admin: 01/10/21 05:29 Dose: 5 ml Documented by: Vancomycin HCl (Vancomycin Hcl 500 Mg/10 Ml Soln) 500 mg PO Q6 [facility] Stop: 01/18/21 17:59 Last Admin: 01/10/21 05:29 Dose: 500 mg Documented by: Vitamin B Complex (Vitamin B Complex Tab) 1 tab PO QAM [facility] Stop: 02/08/21 08:59 Last Admin: 01/10/21 08:51 Dose: 1 tab Documented by: Vitamin D (Cholecalciferol 1,000 Units 25 Mcg Tab) 2,000 units PO QAM [facility] Stop: 02/08/21 08:59 Last Admin: 01/10/21 08:51 Dose: 2,000 units Documented by: PG Care Time/CCT Total # of Minutes Spent Total Time Spent with Patient: Total time spent is greater than 50% in coordination of care (as documented) at patient's floor/unit and/or counseling patient: Coding Level of Care Code 27132 Subseq Hosp Care Lvl 2 Diagnoses Sepsis A41.9 C. difficile colitis A04.72 Chronic left hip pain M25.552; G89.29 Ulcer of left heel L97.429 Sacral ulcer L98.429 Moderate mitral regurgitation I34.0 (HFpEF) heart failure with preserved ejection fraction I50.31 Heart failure chronicity: acute Gastroesophageal reflux disease K21.9 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 Follicular lymphoma type: unspecified follicular type Lymphoma site: unspecified region DVT prophylaxis Z29.9 (1) (HFpEF) heart failure with preserved ejection fraction Heart failure chronicity: acute Qualified Code(s): I50.31 - Acute diastolic (congestive) heart failure (2) Follicular lymphoma Follicular lymphoma type: unspecified follicular type Lymphoma site: unspecified region Qualified Code(s): C82.90 - Follicular lymphoma, u nspecified, unspecified site
[2021-01-10] MEDS: ENOXAPARIN INJ 40 MG/0.4 ML SYR SQ SCH (18:00)
[2021-01-10] MEDS: MELATONIN 3 MG TAB PO SCH (20:59)
[2021-01-10] MEDS: ASPIRIN 81 MG ECTAB PO SCH (21:00)
[2021-01-10] MEDS: GABAPENTIN 600 MG TAB PO SCH (21:04)
[2021-01-11] MEDS: VANCOMYCIN HCL 500 MG/10 ML SOLN PO SCH ×4 (00:03→17:31)
[2021-01-11] MEDS: CHECK fentaNYL PATCH PLACEMENT SCH ×4 (00:03→23:33)
[2021-01-11] MEDS: RASPBERRY SYRUP 5 ML UDP PO SCH ×5 (00:05→23:33)
[2021-01-11] MEDS: metroNIDAZOLE 500 MG/100 ML BAG IV SCH ×3 (05:52→20:22)
[2021-01-11 06:08] LABS: Basophils # (auto) 0.08 K/uL (0-0.2); Basophils % (auto) 0.5 %; Eosinophils # (auto) 1.55 K/uL (0-0.5); Eosinophils % (auto) 10.1 %; Hematocrit (blood only) 32.5 % (37-47); Hemoglobin 10.3 g/dL (12.0-16.0); Immature Granulocytes # (auto) 0.11 K/uL (0.00-0.02); Immature Granulocytes % (auto) 0.7 %; Lymphocytes # (auto) 1.41 K/uL (1.2-3.4); Lymphocytes % (auto) 9.1 %; Mean Corpuscular Hemoglobin 24.7 pg (25-34); Mean Corpuscular Hgb Conc 31.7 g/dL (32-36); Mean Corpuscular Volume 77.9 fL (80-100); Mean Platelet Volume 9.5 fL (7.4-10.4); Monocytes # (auto) 1.41 K/uL (0.11-0.59); Monocytes % (auto) 9.1 %; Neutrophils # (auto) 10.86 K/uL (1.4-6.5); Neutrophils % (auto) 70.5 %; Platelet Count 611 K/uL (130-400); RDW Coefficient of Variation 17.9 % (11.5-14.5); RDW Standard Deviation 51.2 fL (36.4-46.3); Red Blood Count 4.17 M/uL (4.2-5.4); White Blood Count 15.42 K/uL (4.8-10.8)
[2021-01-11 06:30] LABS: BUN Creatinine Ratio 40.6 (10-20); Calcium 8.5 mg/dl (8.5-10.1); Creatinine Clr Calc Pharmacy 82.8 ml/min; Est GFR (African American) 105.2; Est GFR (Non-African American) 90.8; Magnesium 1.9 mg/dl (1.8-2.4); Potassium 3.5 mmol/L (3.5-5.1)
[2021-01-11] MEDS ORDERED: SODIUM CHLORIDE 0.9% 1000ML 500 ML IV ONE (07:20)
[2021-01-11] MEDS: CHOLESTYRAMINE LIGHT 4 GM PKT PO SCH ×2 (08:12→20:25)
[2021-01-11] MEDS: ASCORBIC ACID 500 MG TAB PO SCH ×2 (08:12→20:24)
[2021-01-11] MEDS: LORATADINE 10 MG TAB PO SCH (08:12)
[2021-01-11] MEDS: CALCIUM 600MG + VIT D 400 IU TAB PO SCH (08:13)
[2021-01-11] MEDS: VITAMIN B COMPLEX TAB PO SCH (08:14)
[2021-01-11] MEDS: CHOLECALCIFEROL 1,000 UNITS 25 MCG TAB PO SCH (08:14)
[2021-01-11] MEDS: DULoxetine HCL 60 MG CAP PO SCH (08:15)
[2021-01-11] MEDS: MELATONIN 3 MG TAB PO SCH (08:15)
[2021-01-11] MEDS: MULTIVITAMIN TAB PO SCH (08:16)
[2021-01-11] MEDS: PANTOprazole 40 MG TAB PO SCH (08:16)
[2021-01-11] MEDS: GABAPENTIN 300 MG CAP PO SCH (08:17)
[2021-01-11] MEDS: fentaNYL 50 MCG/HR TDSY TD SCH (08:57)
[2021-01-11] MEDS: FERROUS SULFATE 325 MG TAB PO SCH (08:58)
[2021-01-11] MEDS: DICLOFENAC SOD 1% GEL 100 GM TUBE EXT SCH ×4 (08:58→20:23)
--- NOTE | 2021-01-11 10:49 | Hospitalist Progress Note ---
Date of Service January 11, 2021 Assessment & Plan (1) Sepsis: due to C diff colitis no evidence of pneumonia, no UTI on UA, no other significant findings on CT abd/pelvis vitals are stable, no fever for over 24 hours, WBC is down to 15k treat the C diff with Vanco 500mg PO and Flagyl IV received two liters of NSS, no further fluids needed at this time anticipate several more days in the hospital reduce Vanco to 250mg QID since she is responding (2) C. difficile colitis: continue vancomycin but reduce to 250mg 4 times daily with IV metronidazole 500 mg every [address]. [address] abdomen pelvis shows colitis and enteritis, no other significant findings WBC down to 15k, less diarrhea with Questran (3) Chronic left hip pain: Outpatient management deferred due to ongoing C. difficile, Covid and bacterial pneumonia PT/OT (4) Ulcer of left heel: No surrounding cellulitis (5) Sacral ulcer: No surrounding cellulitis suspected Consult wound care (6) Moderate mitral regurgitation: Noted (7) (HFpEF) heart failure with preserved ejection fraction: chronic, no acute failure examines euvolemic today (8) Gastroesophageal reflux disease: Switch lansoprazole to pantoprazole as per hospital formulary. (9) Follicular lymphoma: Notable history for this although management has been deferred due to recurrent infections. (10) DVT prophylaxis: Lovenox 40 mg SQ daily Admission and Anticipated Discharge Date Admission Date: January 08, 2021 Subjective patient says she is feeling better today, less diarrhea, no abdominal pain, has some distension that resolves with flatus no dyspnea, no cough, no fever eating okay reviewed labs, WBC down to 15k, Hb 10, Cr and electrolytes stable Review of Systems Review of Systems: All systems reviewed & are unremarkable except as noted in Subjective Constitutional: + fatigue and + weakness; no fever and no sweats Respiratory: no cough and no dyspnea Cardiovascular: no chest pain and no edema Gastrointestinal: + diarrhea/loose stools; no abdominal pain, no nausea, no vomiting and no constipation Physical Exam Constitutional: WD/WN, vitals as above + frail appearing Neck: trachea midline, no thyromegaly Respiratory: normal respiratory effort, lungs clear to auscultation Cardiovascular: Rate/Rhythm: regular rate and regular rhythm Heart Sounds: normal S1, normal S2 and + murmur Vessels: no JVD Extremities: normal capillary refill; no edema Gastrointestinal (Abdomen): normal bowel sounds, soft, nontender, no hepatosplenomegaly Musculoskeletal: no cyanosis or clubbing, extremities motor strength 5/5 Skin: no rashes, warm and dry Neurologic: patellar DTR's 2+ bilat, sensation intact and PERRL, EOMI, acco mmodation nl, no face palsy, no dysarthria Psychiatric: A+Ox3, euthymic affect Lymphatic: no cervical or axillary lymphadenopathy Results & Data Results & Data ([facility]) Vital Signs (Past 12 Hours) Vital Signs Temp Pulse Pulse Resp BP BP Pulse Ox 01/11/21 08:33 36.4 C L 96 H 18 109/71 92 01/11/21 08:00 87 01/11/21 03:00 36.8 C 101 H 19 87/55 L 90 01/11/21 02:00 100 H 01/10/21 23:34 37.0 C 95 H 17 87/57 L 90 01/10/21 23:04 95 H Laboratory Results Laboratory Results - last 24 hr 01/11/21 01/11/21 05:45 05:45 WBC 15.42 H D RBC 4.17 L Hgb 10.3 L Hct 32.5 L MCV 77.9 L MCH 24.7 L MCHC 31.7 L RDW Std Deviation 51.2 H RDW Coeff of Inge 17.9 H Plt Count 611 H MPV 9.5 Immature Gran % (Auto) 0.7 Neut % (Auto) 70.5 Lymph % (Auto) 9.1 Wolfe % (Auto) 9.1 Eos % (Auto) 10.1 Baso % (Auto) 0.5 Neut # (Auto) 10.86 H Lymph # (Auto) 1.41 Wolfe # (Auto) 1.41 H Eos # (Auto) 1.55 H Baso # (Auto) 0.08 Immature Gran # (Auto) 0.11 H Sodium 135 L Potassium 3.5 Chloride 106 Carbon Dioxide 23 Anion Gap 6.0 BUN 24 H Creatinine 0.58 L Est Cr Clr Drug Dosing 82.8 Est GFR ( Amer) 105.2 Est GFR (Non-Af Amer) 90.8 BUN/Creatinine Ratio 40.6 H Glucose 100 H Calcium 8.5 Magnesium 1.9 Medications Administered Current Inpatient Medications Acetaminophen (Acetaminophen 325 Mg Tab) 650 mg PO Q4H PRN PRN Reason: Pain or Fever Stop: 02/07/21 16:58 Last Admin: 01/09/21 04:45 Dose: 650 mg Documented by: Al Hydrox/Mg Hydrox/Simethicone (Aluminum/Magnesium Susp 30 Ml Udc) 15 ml PO Q4H PRN PRN Reason: Dyspepsia Stop: 02/07/21 16:58 Last Admin: 01/09/21 11:52 Dose: 15 ml Documented by: Ascorbic Acid (Ascorbic Acid 500 Mg Tab) 1,000 mg PO BID [facility] Stop: 02/07/21 20:59 Last Admin: 01/11/21 08:12 Dose: 1,000 mg Documented by: Aspirin (Aspirin 81 Mg Ectab) 81 mg PO QPM [facility] Stop: 02/07/21 20:59 Last Admin: 01/10/21 21:00 Dose: 81 mg Documented by: Cholestyramine Resin (Cholestyramine Light 4 Gm Pkt) 4 gm PO BID@0800,2000 [facility] Stop: 02/08/21 09:59 Last Admin: 01/11/21 08:12 Dose: 4 gm Documented by: Diclofenac Sodium (Diclofenac Sod 1% Gel 100 Gm Tube) 4 gm EXT QID [facility] Stop: 02/07/21 16:59 Last Admin: 01/11/21 08:58 Dose: 4 gm Documented by: Duloxetine HCl (Duloxetine Hcl 60 Mg Cap) [facility]: 02/08/21 08:59 Last Admin: 01/11/21 08:15 Dose: 120 mg Documented by: Enoxaparin Sodium (Enoxaparin Inj 40 Mg/0.4 Ml Syr) 40 mg SQ Q24H [facility] Stop: 02/07/21 17:59 Last Admin: 01/10/21 18:00 Dose: 40 mg Documented by: Fentanyl (Fentanyl 50 Mcg/Hr Tdsy) 50 mcg TD Q72H [facility] Stop: 01/25/21 08:59 Last Admin: 01/11/21 08:57 Dose: 50 mcg Documented by: Ferrous Sulfate (Ferrous Sulfate 325 Mg Tab) 325 mg PO QAM [facility] Stop: 02/08/21 08:59 Last Admin: 01/11/21 08:58 Dose: 325 mg Documented by: Gabapentin (Gabapentin 300 Mg Cap) 300 mg PO QAM [facility] Stop: 02/08/21 08:59 Last Admin: 01/11/21 08:17 Dose: 300 mg Documented by: Gabapentin (Gabapentin 600 Mg Tab) 600 mg PO [facility] Stop: 02/07/21 20:59 Last Admin: 01/10/21 21:04 Dose: 600 mg Documented by: Metronidazole (Flagyl) 500 mg in 100 mls @ 100 mls/hr IV Q8H [facility]; Protocol Stop: 01/18/21 20:59 Last Infusion: 01/11/21 07:14 Dose: Infused Documented by: Loratadine (Loratadine 10 Mg Tab) [facility] Stop: 02/08/21 08:59 Last Admin: 01/11/21 08:12 Dose: 10 mg Documented by: Melatonin (Melatonin 3 Mg Tab) 6 mg PO [facility] Stop: 02/07/21 20:59 Last Admin: 01/11/21 08:15 Dose: 6 mg Documented by: Miscellaneous (Fentanyl Patch Remove & Waste) 1 ea N/A Q3D [facility] Stop: 02/10/21 08:58 Last Admin: 01/11/21 08:18 Dose: 1 ea Documented by: Miscellaneous (Check Fentanyl Patch Placement) 1 ea N/A QS [facility] Stop: 02/07/21 17:59 Last Admin: 01/11/21 08:11 Dose: 1 ea Documented by: Multivitamins (Multivitamin Tab) 1 tab [facility] Stop: 02/08/21 08:59 Last Admin: 01/11/21 08:16 Dose: 1 tab Documented by: Multivitamins/Minerals (Calcium 600mg + Vit D 400 Iu Tab) 1 [facility] Stop: 02/08/21 08:59 Last Admin: 01/11/21 08:13 Dose: 1 tab Documented by: Oxycodone/Acetaminophen (Oxycodone/Acetaminophen 5mg/325mg Tab) 1 tab PO Q4H PRN PRN Reason: pain Stop: 01/22/21 16:58 Pantoprazole Sodium (Pantoprazole 40 Mg Tab) 40 mg PO [facility]; Protocol Stop: 02/08/21 08:59 Last Admin: 01/11/21 08:16 Dose: 40 mg Documented by: Raspberry (Raspberry Syrup 5 Ml Udp) 5 ml PO Q6 [facility] Stop: 01/22/21 17:59 Last Admin: 01/11/21 05:53 Dose: 5 ml Documented by: Vancomycin HCl (Vancomycin Hcl 500 Mg/10 Ml Soln) 500 mg PO Q6 [facility] Stop: 01/18/21 17:59 Last Admin: 01/11/21 05:53 Dose: 500 mg Documented by: Vitamin B Complex (Vitamin B Complex Tab) 1 tab PO QAM [facility] Stop: 02/08/21 08:59 Last Admin: 01/11/21 08:14 Dose: 1 tab Documented by: Vitamin D (Cholecalciferol 1,000 Units 25 Mcg Tab) 2,000 units PO QAM [facility] Stop: 02/08/21 08:59 Last Admin: 01/11/21 08:14 Dose: 2,000 units Documented by: PG Care Time/CCT Total # of Minutes Spent Total Time Spent with Patient: Total time spent is greater than 50% in coordination of care (as documented) at patient's floor/unit and/or counseling patient: Coding Level of Care Code 76376 Subseq Hosp Care Lvl 2 Diagnoses Sepsis A41.9 C. difficile colitis A04.72 Chronic left hip pain M25.552; G89.29 Ulcer of left heel L97.429 Sacral ulcer L98.429 Moderate mitral regurgitation I34.0 (HFpEF) heart failure with preserved ejection fraction I50.31 Heart failure chronicity: acute Gastroesophageal reflux disease K21.9 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 Follicular lymphoma type: unspecified follicular type Lymphoma site: unspecified region DVT prophylaxis Z29.9 (1) (HFpEF) heart failure with preserved ejection fraction Heart failure chronicity: acute Qualified Code(s): I50.31 - Acute diastolic ( congestive) heart failure (2) Follicular lymphoma Follicular lymphoma type: unspecified follicular type Lymphoma site: unspecified region Qualified Code(s): C82.90 - Follicular lymphoma, unspecified, unspecified site
[2021-01-11] MEDS: ENOXAPARIN INJ 40 MG/0.4 ML SYR SQ SCH (17:30)
[2021-01-11] MEDS: ASPIRIN 81 MG ECTAB PO SCH (20:24)
[2021-01-11] MEDS: GABAPENTIN 600 MG TAB PO SCH (21:50)
[2021-01-11] MEDS: VANCOMYCIN HCL 250 MG/5 ML SOLN PO SCH (23:33)
[2021-01-12] MEDS: RASPBERRY SYRUP 5 ML UDP PO SCH ×2 (05:16→11:58)
[2021-01-12] MEDS: metroNIDAZOLE 500 MG/100 ML BAG IV SCH ×3 (05:16→20:31)
[2021-01-12] MEDS: VANCOMYCIN HCL 250 MG/5 ML SOLN PO SCH ×2 (05:16→11:58)
[2021-01-12] MEDS: FERROUS SULFATE 325 MG TAB PO SCH (08:15)
[2021-01-12] MEDS: VITAMIN B COMPLEX TAB PO SCH (08:15)
[2021-01-12] MEDS: DULoxetine HCL 60 MG CAP PO SCH (08:15)
[2021-01-12] MEDS: ASCORBIC ACID 500 MG TAB PO SCH ×2 (08:15→20:34)
[2021-01-12] MEDS: MULTIVITAMIN TAB PO SCH (08:15)
[2021-01-12] MEDS: PANTOprazole 40 MG TAB PO SCH (08:15)
[2021-01-12] MEDS: CALCIUM 600MG + VIT D 400 IU TAB PO SCH (08:15)
[2021-01-12] MEDS: CHECK fentaNYL PATCH PLACEMENT SCH ×3 (08:15→23:22)
[2021-01-12] MEDS: LORATADINE 10 MG TAB PO SCH (08:15)
[2021-01-12] MEDS: CHOLECALCIFEROL 1,000 UNITS 25 MCG TAB PO SCH (08:15)
[2021-01-12] MEDS: DICLOFENAC SOD 1% GEL 100 GM TUBE EXT SCH ×4 (08:16→21:39)
[2021-01-12] MEDS: CHOLESTYRAMINE LIGHT 4 GM PKT PO SCH (08:16)
[2021-01-12] MEDS: GABAPENTIN 300 MG CAP PO SCH (08:16)
[2021-01-12 08:55] LABS: Hematocrit (blood only) 36.5 % (37-47); Hemoglobin 11.7 g/dL (12.0-16.0); Mean Corpuscular Hgb Conc 32.1 g/dL (32-36); Mean Platelet Volume 9.2 fL (7.4-10.4); Platelet Count 784 K/uL (130-400); RDW Coefficient of Variation 18.3 % (11.5-14.5); RDW Standard Deviation 52.4 fL (36.4-46.3); Red Blood Count 4.68 M/uL (4.2-5.4); White Blood Count 18.59 K/uL (4.8-10.8)
[2021-01-12 09:21] LABS: BUN Creatinine Ratio 25.9 (10-20); Creatinine Clr Calc Pharmacy 60.8 ml/min; Est GFR (African American) 85.5; Est GFR (Non-African American) 73.7; Potassium 3.5 mmol/L (3.5-5.1)
--- NOTE | 2021-01-12 11:34 | Hospitalist Progress Note ---
Date of Service January 12, 2021 Assessment & Plan (1) Sepsis: due to C diff colitis no evidence of pneumonia, no UTI on UA, no other significant findings on CT abd/pelvis vitals are stable, no fever, WBC is up slightly at 18k initially treated the C diff with Vanco 500mg PO q6 and Flagyl IV received two liters of NSS, no further fluids needed at this time good response to the Vanco, but patient and daughter say that she was already on prolonged vanco taper want to try Dificid, they actually got a 10 day prescription filled from the demolitionist from last bout but never had to use it will change to Dificid 200mg BID, stop Flagyl after today will consult ID for their input (2) C. difficile colitis: see above change to Dificid 200mg BID this is her 3rd bout of C diff in the past three months, she is miserable consult ID discussed that she would benefit from outpatient follow up with ID or gastroenterology at tertiary care might need to consider stool transplant CT abdomen pelvis shows colitis and enteritis, no other significant findings WBC up to 18k, less diarrhea with Questran (3) Chronic left hip pain: Outpatient management deferred due to ongoing C. difficile, Covid and bacterial pneumonia PT/OT (4) Ulcer of left heel: No surrounding cellulitis (5) Sacral ulcer: No surrounding cellulitis suspected Consult wound care (6) Moderate mitral regurgitation: Noted (7) (HFpEF) heart failure with preserved ejection fraction: chronic, no acute failure examines euvolemic today (8) Gastroesophageal reflux disease: Switch lansoprazole to pantoprazole as per hospital formulary. (9) Follicular lymphoma: Notable history for this although management has been deferred due to recurrent infections. (10) DVT prophylaxis: Lovenox 40 mg SQ daily Admission and Anticipated Discharge Date Admission Date: January 08, 2021 Subjective patient doing a little better, stools are a little more formed not eating great, just no appetite, denies nausea her daughter is at the bedside, discussed past three months this is her third bout with C diff, she completed a normal course of Vancomycin and then when it came back she was on a prolonged taper of Vanco she even was prescribed Dificid and was going to take it but the taper of Vanco resolved the diarrhea she was doing well until the C diff came back a few days ago they would like to try Dificid and I would agree, will change to Dificid this evening discussed getting an ID consult which they agree with discussed that she would likely benefit from outpatient follow up with ID or GI at tertiary care might have to consider stool transplant as this is third infection in three months, affecting quality of life will remove kennedy as it was placed on admission due to sepsis and KG, no need for this now WBC is up a little at 18k, Cr 0.70 and CO2 is 20 Review of Systems Review of Systems: All systems reviewed & are unremarkable except as noted in Subjective Constitutional: + weakness; no fever and no fatigue Respiratory: no cough Cardiovascular: no chest pain and no edema Gastrointestinal: + belching, + bloating, + early satiety and + diarrhea/loose stools; no abdominal pain, no nausea, no vomiting and no constipation Physical Exam Constitutional: WD/WN, vitals as above + frail appearing Neck: trachea midline, no thyromegaly Respiratory: normal respiratory effort, lungs clear to auscultation Cardiovascular: RRR, no murmur, no edema Rate/Rhythm: regular rate and regular rhythm Heart Sounds: normal S1, normal S2 and + murmur Vessels: no JVD Extremities: normal capillary refill; no edema Gastrointestinal (Abdomen): normal bowel sounds, soft, nontender, no hepatosplenomegaly Musculoskeletal: no cyanosis or clubbing, extremities motor strength 5/5 Skin: no rashes, warm and dry Neurologic: patellar DTR's 2+ bilat, sensation intact and PERRL, EOMI, accommodation nl, no face palsy, no dysarthria Psychiatric: A+Ox3, euthymic affect Lymphatic: no cervical or axillary lymphadenopathy Results & Data Results & Data ([facility]) Vital Signs (Past 12 Hours) Vital Signs Temp Pulse Pulse Resp BP Pulse Ox 01/12/21 09:59 109 H 01/12/21 07:06 37.4 C 110 H 19 100/67 91 01/12/21 06:32 36.7 C 111 H 18 115/63 95 Laboratory Results Laboratory Results - last 24 hr 01/12/21 01/12/21 08:41 08:41 WBC 18.59 H RBC 4.68 Hgb 11.7 L Hct 36.5 L MCV 78.0 L MCH 25.0 MCHC 32.1 RDW Std Deviation 52.4 H RDW Coeff of Inge 18.3 H Plt Count 784 H MPV 9.2 Sodium 133 L Potassium 3.5 Chloride 105 Carbon Dioxide 20 L Anion Gap 8.0 BUN 20 H Creatinine 0.79 Est Cr Clr Drug Dosing 60.8 Est GFR ( Amer) 85.5 Est GFR (Non-Af Amer) 73.7 BUN/Creatinine Ratio 25.9 H Glucose 126 H Calcium 9.0 Medications Administered Current Inpatient Medications Acetaminophen (Acetaminophen 325 Mg Tab) 650 mg PO Q4H PRN PRN Reason: Pain or Fever Stop: 02/07/21 16:58 Last Admin: 01/09/21 04:45 Dose: 650 mg Documented by: Al Hydrox/Mg Hydrox/Simethicone (Aluminum/Magnesium Susp 30 Ml Udc) 15 ml PO Q4H PRN PRN Reason: Dyspepsia Stop: 02/07/21 16:58 Last Admin: 01/09/21 11:52 Dose: 15 ml Documented by: Ascorbic Acid (Ascorbic Acid 500 Mg Tab) 1,000 mg PO BID [facility] Stop: 02/07/21 20:59 Last Admin: 01/12/21 08:15 Dose: 1,000 mg Documented by: Aspirin (Aspirin 81 Mg Ectab) 81 mg PO QPM [facility] Stop: 02/07/21 20:59 Last Admin: 01/11/21 20:24 Dose: 81 mg Documented by: Cholestyramine Resin (Cholestyramine Light 4 Gm Pkt) 4 gm PO BID@0800,2000 [facility] Stop: 02/08/21 09:59 Last Admin: 01/12/21 08:16 Dose: 4 gm Documented by: Diclofenac Sodium (Diclofenac Sod 1% Gel 100 Gm Tube) 4 gm EXT QID [facility] Stop: 02/07/21 16:59 Last Admin: 01/12/21 08:16 Dose: 4 gm Documented by: Duloxetine HCl (Duloxetine Hcl 60 Mg Cap) 120 mg PO QAM [facility] Stop: 02/08/21 08:59 Last Admin: 01/12/21 08:15 Dose: 120 mg Documented by: Enoxaparin Sodium (Enoxaparin Inj 40 Mg/0.4 Ml Syr) 40 mg SQ Q24H [facility] Stop: 02/07/21 17:59 Last Admin: 01/11/21 17:30 Dose: 40 mg Documented by: Fentanyl (Fentanyl 50 Mcg/Hr Tdsy) 50 mcg TD Q72H [facility] Stop: 01/25/21 08:59 Last Admin: 01/11/21 08:57 Dose: 50 mcg Documented by: Ferrous Sulfate (Ferrous Sulfate 325 Mg Tab) [facility] Stop: 02/08/21 08:59 Last Admin: 01/12/21 08:15 Dose: 325 mg Documented by: Gabapentin (Gabapentin 300 Mg Cap) 300 [facility] Stop: 02/08/21 08:59 Last Admin: 01/12/21 08:16 Dose: 300 mg Documented by: Gabapentin (Gabapentin 600 Mg Tab) 600 mg PO [facility] Stop: 02/07/21 20:59 Last Admin: 01/11/21 21:50 Dose: 600 mg Documented by: Metronidazole (Flagyl) 500 mg in 100 mls @ 100 mls/hr IV Q8H [facility]; Protocol Stop: 01/18/21 20:59 Last Infusion: 01/12/21 06:30 Dose: Infused Documented by: Loratadine (Loratadine 10 Mg Tab) 10 mg PO [facility] Stop: 02/08/21 08:59 Last Admin: 01/12/21 08:15 Dose: 10 mg Documented by: Melatonin (Melatonin 3 Mg Tab) 6 mg PO [facility] Stop: 02/07/21 20:59 Last Admin: 01/11/21 08:15 Dose: 6 mg Documented by: Miscellaneous (Fentanyl Patch Remove & Waste) 1 ea N/A Q3D [facility] Stop: 02/10/21 08:58 Last Admin: 01/11/21 08:18 Dose: 1 ea Documented by: Miscellaneous (Check Fentanyl Patch Placement) 1 ea N/A QS [facility] Stop: 02/07/21 17:59 Last Admin: 01/12/21 08:15 Dose: 1 ea Documented by: Multivitamins (Multivitamin Tab) 1 tab PO QAM [facility] Stop: 02/08/21 08:59 Last Admin: 01/12/21 08:15 Dose: 1 tab Documented by: Multivitamins/Minerals (Calcium 600mg + Vit D 400 Iu Tab) 1 tab PO QAM [facility] Stop: 02/08/21 08:59 Last Admin: 01/12/21 08:15 Dose: 1 tab Documented by: Oxycodone/Acetaminophen (Oxycodone/Acetaminophen 5mg/325mg Tab) 1 tab PO Q4H PRN PRN Reason: pain Stop: 01/22/21 16:58 Pantoprazole Sodium (Pantoprazole 40 Mg Tab) 40 mg PO QAM [facility]; Protocol Stop: 02/08/21 08:59 Last Admin: 01/12/21 08:15 Dose: 40 mg Documented by: Raspberry (Raspberry Syrup 5 Ml Udp) 5 ml PO Q6 [facility] Stop: 01/22/21 17:59 Last Admin: 01/12/21 05:16 Dose: 5 ml Documented by: Vancomycin HCl (Vancomycin Hcl 250 Mg/5 Ml Soln) 250 mg PO Q6 [facility] Stop: 01/22/21 00:00 Last Admin: 01/12/21 05:16 Dose: 250 mg Documented by: Vitamin B Complex (Vitamin B Complex Tab) [facility] [place] Stop: 02/08/21 08:59 Last Admin: 01/12/21 08:15 Dose: 1 tab Documented by: Vitamin D (Cholecalciferol 1,000 Units 25 Mcg Tab) 2,000 units [facility] [place] Stop: 02/08/21 08:59 Last Admin: 01/12/21 08:15 Dose: 2,000 units Documented by: PG Care Time/CCT Total # of Minutes Spent Total Time Spent: 33 Total Time Spent with Patient: Total time spent is greater than 50% in coordination of care (as documented) at patient's floor/unit and/or counseling patient: 15 minutes speaking with daughter Coding Level of Care Code 32227 Subseq Hosp Care Lvl 3 Diagnoses Sepsis A41.9 C. difficile colitis A04.72 Chronic left hip pain M25.552; G89.29 Ulcer of left heel L97.429 Sacral ulcer L98.429 Moderate mitral regurgitation I34.0 (HFpEF) heart failure with preserved ejection fraction I50.31 Heart failure chronicity: acute Gastroesophageal reflux disease K21.9 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 Follicular lymphoma type: unspecified follicular type Lymphoma site: unspecified region DVT prophylaxis Z29.9 (1) (HFpEF) heart failure with preserved ejection fraction Heart failure chronicity: acute Qualified Code(s): I50.31 - Acute diastolic (congestive) heart failure (2) Follicular lymphoma Follicular lymphoma type: unspecified follicular type Lymphoma site: unspecified region Qualified Code(s): C82.90 - Follicular lymphoma, unspecified, unspecified site
[2021-01-12] MEDS: ENOXAPARIN INJ 40 MG/0.4 ML SYR SQ SCH (17:59)
[2021-01-12] MEDS: FIDAXOMICIN 200 MG TAB PO SCH (20:33)
[2021-01-12] MEDS: ASPIRIN 81 MG ECTAB PO SCH (21:39)
[2021-01-12] MEDS: MELATONIN 3 MG TAB PO SCH (21:39)
[2021-01-12] MEDS: GABAPENTIN 600 MG TAB PO SCH (21:39)
[2021-01-13] MEDS: metroNIDAZOLE 500 MG/100 ML BAG IV SCH ×3 (04:45→22:49)
[2021-01-13 06:05] LABS: Hematocrit (blood only) 35.7 % (37-47); Hemoglobin 11.3 g/dL (12.0-16.0); Mean Corpuscular Hemoglobin 24.7 pg (25-34); Mean Corpuscular Hgb Conc 31.7 g/dL (32-36); Mean Corpuscular Volume 77.9 fL (80-100); Mean Platelet Volume 8.9 fL (7.4-10.4); Platelet Count 780 K/uL (130-400); RDW Coefficient of Variation 17.9 % (11.5-14.5); Red Blood Count 4.58 M/uL (4.2-5.4); White Blood Count 20.17 K/uL (4.8-10.8)
[2021-01-13 06:34] LABS: BUN Creatinine Ratio 32.1 (10-20); Calcium 8.5 mg/dl (8.5-10.1); Creatinine Clr Calc Pharmacy 72.7 ml/min; Est GFR (African American) 100.9; Potassium 3.6 mmol/L (3.5-5.1)
[2021-01-13] MEDS: PANTOprazole 40 MG TAB PO SCH (08:46)
[2021-01-13] MEDS: FIDAXOMICIN 200 MG TAB PO SCH ×2 (08:46→22:50)
[2021-01-13] MEDS: CHECK fentaNYL PATCH PLACEMENT SCH ×3 (08:46→23:45)
[2021-01-13] MEDS: FERROUS SULFATE 325 MG TAB PO SCH (08:46)
[2021-01-13] MEDS: CHOLECALCIFEROL 1,000 UNITS 25 MCG TAB PO SCH (08:46)
[2021-01-13] MEDS: VITAMIN B COMPLEX TAB PO SCH (08:47)
[2021-01-13] MEDS: ASCORBIC ACID 500 MG TAB PO SCH ×2 (08:47→22:52)
[2021-01-13] MEDS: MULTIVITAMIN TAB PO SCH (08:47)
[2021-01-13] MEDS: CALCIUM 600MG + VIT D 400 IU TAB PO SCH (08:47)
[2021-01-13] MEDS: DULoxetine HCL 60 MG CAP PO SCH (08:47)
[2021-01-13] MEDS: GABAPENTIN 300 MG CAP PO SCH (08:47)
[2021-01-13] MEDS: DICLOFENAC SOD 1% GEL 100 GM TUBE EXT SCH ×4 (08:48→22:50)
[2021-01-13] MEDS: LORATADINE 10 MG TAB PO SCH (08:48)
--- NOTE | 2021-01-13 10:00 | Hospitalist Progress Note ---
Date of Service January 13, 2021 Assessment & Plan (1) Sepsis: due to C diff colitis no evidence of pneumonia, no UTI on UA, no other significant findings on CT abd/pelvis vitals are stable, no fever, WBC is up slightly at 20k initially treated the C diff with Vanco 500mg PO q6 and Flagyl IV received two liters of NSS, no further fluids needed at this time good response to the Vanco, but patient and daughter say that she was already on prolonged vanco taper want to try Dificid, they actually got a 10 day prescription filled from the naturalization examiner from last bout but never had to use it will change to Dificid 200mg BID, continue Flagyl as she is having more diarrhea resume Questran as she is having more diarrhea today will consult ID for their input (2) C. difficile colitis: see above change to Dificid 200mg BID on 01/12 this is her 3rd bout of C diff in the past three months, she is miserable consult ID discussed that she would benefit from outpatient follow up with ID or gastroenterology at tertiary care might need to consider stool transplant CT abdomen pelvis showed colitis and enteritis, no other significant findings WBC up to 20k, more diarrhea today, resume Questran (stopped it yesterday because she felt like it was giving her early satiety, could not eat much) (3) Chronic left hip pain: Outpatient management deferred due to ongoing C. difficile, Covid and bacterial pneumonia PT/OT (4) Ulcer of left heel: No surrounding cellulitis just saw wound clinic on Thursday continue Aquacel, follow up with wound clinic (5) Sacral ulcer: No surrounding cellulitis suspected Consult wound care (6) Moderate mitral regurgitation: Noted (7) (HFpEF) heart failure with preserved ejection fraction: chronic, has pitting edema in legs bilaterally not normally on diuretic hesitant to start right now since she is losing fluids in her diarrhea (8) Gastroesophageal reflux disease: Switch lansoprazole to pantoprazole as per hospital formulary. (9) Follicular lymphoma: Notable history for this although management has been deferred due to recurrent infections. (10) DVT prophylaxis: Lovenox 40 mg SQ daily Admission and Anticipated Discharge Date Admission Date: January 08, 2021 Subjective patient having more diarrhea today since stopping Questran and changing to Dificid some stools have been explosive she is embarrassed and feels bad for staff who have to clean her WBC up to 20k, no fever, no dyspnea, no cough, no pain in left heel (she has ulcer there chronically) discussed that we are waiting on ID consult, typically don't happen on weekend her daughter has some questions about stool transplant explained that she may in fact need this given ongoing issues, but ID could make that recommendation explained that she would need follow up with tertiary GI where they perform stool transplant Review of Systems Review of Systems: All systems reviewed & are unremarkable except as noted in Subjective Gastrointestinal: + diarrhea/loose stools; no abdominal pain, no nausea, no vomiting and no constipation Physical Exam Constitutional: WD/WN, vitals as above + frail appearing Neck: trachea midline, no thyromegaly Respiratory: normal respiratory effort, lungs clear to auscultation Cardiovascular: RRR, no murmur, no edema Rate/Rhythm: regular rate and regular rhythm Heart Sounds: normal S1, normal S2 and + murmur Vessels: no JVD Extremities: normal capillary refill and + edema (pitting in legs) Gastrointestinal (Abdomen): normal bowel sounds, soft, nontender, no hepatosplenomegaly Musculoskeletal: no cyanosis or clubbing, extremities motor strength 5/5 Skin: no rashes, warm and dry Neurologic: patellar DTR's 2+ bilat, sensation intact and PERRL, EOMI, accommodation nl, no face palsy, no dysarthria Psychiatric: A+Ox3, euthymic affect Lymphatic: no cervical or axillary lymphadenopathy Results & Data Results & Data ([facility]) Vital Signs (Past 12 Hours) Vital Signs Temp Pulse Resp BP Pulse Ox 01/13/21 08:00 36.8 C 87 17 106/68 94 01/12/21 22:42 36.9 C 89 16 105/67 93 Laboratory Results Laboratory Results - last 24 hr 01/13/21 01/13/21 05:49 05:49 WBC 20.17 H RBC 4.58 Hgb 11.3 L Hct 35.7 L MCV 77.9 L MCH 24.7 L MCHC 31.7 L RDW Std Deviation 51.0 H RDW Coeff of Inge 17.9 H Plt Count 780 H MPV 8.9 Sodium 134 L Potassium 3.6 Chloride 103 Carbon Dioxide 23 Anion Gap 8.0 BUN 21 H Creatinine 0.66 Est Cr Clr Drug Dosing 72.7 Est GFR ( Amer) 100.9 Est GFR (Non-Af Amer) 87.0 BUN/Creatinine Ratio 32.1 H Glucose 141 H Calcium 8.5 Medications Administered Current Inpatient Medications Acetaminophen (Acetaminophen 325 Mg Tab) 650 mg PO Q4H PRN PRN Reason: Pain or Fever Stop: 02/07/21 16:58 Last Admin: 01/09/21 04:45 Dose: 650 mg Documented by: Al Hydrox/Mg Hydrox/Simethicone (Aluminum/Magnesium Susp 30 Ml Udc) 15 ml PO Q4H PRN PRN Reason: Dyspepsia Stop: 02/07/21 16:58 Last Admin: 01/09/21 11:52 Dose: 15 ml Documented by: Ascorbic Acid (Ascorbic Acid 500 Mg Tab) 1,000 mg PO BID [facility] Stop: 02/07/21 20:59 Last Admin: 01/13/21 08:47 Dose: 1,000 mg Documented by: Aspirin (Aspirin 81 Mg Ectab) 81 mg PO QPM [facility] Stop: 02/07/21 20:59 Last Admin: 01/12/21 21:39 Dose: 81 mg Documented by: Diclofenac Sodium (Diclofenac Sod 1% Gel 100 Gm Tube) 4 gm EXT QID [facility] Stop: 02/07/21 16:59 Last Admin: 01/13/21 08:48 Dose: 4 gm Documented by: Duloxetine HCl (Duloxetine Hcl 60 Mg Cap) 120 mg PO QAM [facility] Stop: 02/08/21 08:59 Last Admin: 01/13/21 08:47 Dose: 120 mg Documented by: Enoxaparin Sodium (Enoxaparin Inj 40 Mg/0.4 Ml Syr) 40 mg SQ Q24H [facility] Stop: 02/07/21 17:59 Last Admin: 01/12/21 17:59 Dose: 40 mg Documented by: Fentanyl (Fentanyl 50 Mcg/Hr Tdsy) 50 mcg TD Q72H [facility] Stop: 01/25/21 08:59 Last Admin: 01/11/21 08:57 Dose: 50 mcg Documented by: Ferrous Sulfate (Ferrous Sulfate 325 Mg Tab) 325 mg PO QAM [facility] Stop: 02/08/21 08:59 Last Admin: 01/13/21 08:46 Dose: 325 mg Documented by: Fidaxomicin (Fidaxomicin 200 Mg Tab) 200 mg PO BID [facility] Stop: 01/22/21 20:59 Last Admin: 01/13/21 08:46 Dose: 200 mg Documented by: Gabapentin (Gabapentin 300 Mg Cap) 300 mg PO [facility] Stop: 02/08/21 08:59 Last Admin: 01/13/21 08:47 Dose: 300 mg Documented by: Gabapentin (Gabapentin 600 Mg Tab) 600 mg PO [facility] Stop: 02/07/21 20:59 Last Admin: 01/12/21 21:39 Dose: 600 mg Documented by: Metronidazole (Flagyl) 500 mg in 100 mls @ 100 mls/hr IV Q8H [facility]; Protocol Stop: 01/18/21 20:59 Last Infusion: 01/13/21 05:42 Dose: Infused Documented by: Loratadine (Loratadine 10 Mg Tab) 10 mg PO [facility] Stop: 02/08/21 08:59 Last Admin: 01/13/21 08:48 Dose: 10 mg Documented by: Melatonin (Melatonin 3 Mg Tab) 6 mg PO [facility] Stop: 02/07/21 20:59 Last Admin: 01/12/21 21:39 Dose: 6 mg Documented by: Miscellaneous (Fentanyl Patch Remove & Waste) 1 ea N/A Q3D [facility] Stop: 02/10/21 08:58 Last Admin: 01/11/21 08:18 Dose: 1 ea Documented by: Miscellaneous (Check Fentanyl Patch Placement) 1 ea N/A QS [facility] Stop: 02/07/21 17:59 Last Admin: 01/13/21 08:46 Dose: 1 ea Documented by: Multivitamins (Multivitamin Tab) [facility] Stop: 02/08/21 08:59 Last Admin: 01/13/21 08:47 Dose: 1 tab Documented by: Multivitamins/Minerals (Calcium 600mg + Vit D 400 Iu Tab) [facility] Stop: 02/08/21 08:59 Last Admin: 01/13/21 08:47 Dose: 1 tab Documented by: Oxycodone/Acetaminophen (Oxycodone/Acetaminophen 5mg/325mg Tab) 1 tab PO Q4H PRN PRN Reason: pain Stop: 01/22/21 16:58 Pantoprazole Sodium (Pantoprazole 40 Mg Tab) 40 mg PO [facility]; Protocol Stop: 02/08/21 08:59 Last Admin: 01/13/21 08:46 Dose: 40 mg Documented by: Vitamin B Complex (Vitamin B Complex Tab) 1 tab PO QAM [facility] Stop: 02/08/21 08:59 Last Admin: 01/13/21 08:47 Dose: 1 tab Documented by: Vitamin D (Cholecalciferol 1,000 Units 25 Mcg Tab) 2,000 units PO QAM [facility] Stop: 02/08/21 08:59 Last Admin: 01/13/21 08:46 Dose: 2,000 units Documented by: PG Care Time/CCT Total # of Minutes Spent Total Time Spent with Patient: Total time spent is greater than 50% in coordination of care (as documented) at patient's floor/unit and/or counseling patient: Coding Level of Care Code 50687 Subseq Hosp Care Lvl 3 Diagnoses Sepsis A41.9 C. difficile colitis A04.72 Chronic left hip pain M25.552; G89.29 Ulcer of left heel L97.429 Sacral ulcer L98.429 Moderate mitral regurgitation I34.0 (HFpEF) heart failure with preserved ejection fraction I50.31 Heart failure chronicity: acute Gastroesophageal reflux disease K21.9 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 Follicular lymphoma type: unspecified follicular type Lymphoma site: unspecified region DVT prophylaxis Z29.9 (1) (HFpEF) heart failure with preserved ejection fraction Heart failure chronicity: acute Qualified Code(s): I50.31 - Acute diastolic (congestive) heart failure (2) Follicular lymphoma Follicular lymphoma type: unspecified follicular type Lymphoma site: unspecified region Qualified Code(s): C82.90 - Follicular lymphoma, unspecified, unspecified site
[2021-01-13] MEDS ORDERED: metroNIDAZOLE 500 MG/100 ML BAG IV SCH (16:30)
[2021-01-13] MEDS: ENOXAPARIN INJ 40 MG/0.4 ML SYR SQ SCH (18:17)
[2021-01-13] MEDS: ASPIRIN 81 MG ECTAB PO SCH (22:51)
[2021-01-13] MEDS: CHOLESTYRAMINE LIGHT 4 GM PKT PO SCH (22:51)
[2021-01-13] MEDS: GABAPENTIN 600 MG TAB PO SCH (22:52)
[2021-01-13] MEDS: MELATONIN 3 MG TAB PO SCH (22:57)
[2021-01-14] MEDS: metroNIDAZOLE 500 MG/100 ML BAG IV SCH ×3 (05:30→21:20)
[2021-01-14 06:08] LABS: Basophils # (auto) 0.06 K/uL (0-0.2); Basophils % (auto) 0.3 %; Eosinophils # (auto) 0.47 K/uL (0-0.5); Eosinophils % (auto) 2.5 %; Hematocrit (blood only) 32.2 % (37-47); Hemoglobin 10.4 g/dL (12.0-16.0); Immature Granulocytes # (auto) 0.34 K/uL (0.00-0.02); Immature Granulocytes % (auto) 1.8 %; Lymphocytes # (auto) 1.79 K/uL (1.2-3.4); Lymphocytes % (auto) 9.7 %; Mean Corpuscular Hemoglobin 24.8 pg (25-34); Mean Corpuscular Hgb Conc 32.3 g/dL (32-36); Mean Corpuscular Volume 76.8 fL (80-100); Mean Platelet Volume 8.6 fL (7.4-10.4); Monocytes # (auto) 1.14 K/uL (0.11-0.59); Monocytes % (auto) 6.2 %; Neutrophils # (auto) 14.66 K/uL (1.4-6.5); Neutrophils % (auto) 79.5 %; Platelet Count 728 K/uL (130-400); RDW Standard Deviation 50.6 fL (36.4-46.3); Red Blood Count 4.19 M/uL (4.2-5.4); White Blood Count 18.46 K/uL (4.8-10.8)
[2021-01-14 06:47] LABS: Alanine Aminotransferase 11 U/L (12-78); Albumin Level 1.8 gm/dl (3.4-5.0); Aspartate Aminotransferase 6 U/L (15-37); BUN Creatinine Ratio 29.8 (10-20); Bilirubin Direct < 0.1 mg/dl (0-0.2); Blood Urea Nitrogen 17 mg/dl (7-18); Calcium 8.5 mg/dl (8.5-10.1); Carbon Dioxide 22 mmol/L (21-32); Chloride 104 mmol/L (98-107); Creatinine Clr Calc Pharmacy 85.7 ml/min; Est GFR (African American) 106.5; Est GFR (Non-African American) 91.9; Glucose 96 mg/dl (70-99); Magnesium 1.6 mg/dl (1.8-2.4); Potassium 3.6 mmol/L (3.5-5.1); Sodium 135 mmol/L (136-145)
[2021-01-14 06:49] LABS: Alkaline Phosphatase 68 U/L (45-117); Bilirubin,Total 0.4 mg/dl (0.2-1); Phosphorus 3.4 mg/dl (2.5-4.9)
[2021-01-14] MEDS: CHECK fentaNYL PATCH PLACEMENT SCH ×2 (08:08→17:18)
[2021-01-14] MEDS: CHOLECALCIFEROL 1,000 UNITS 25 MCG TAB PO SCH (08:08)
[2021-01-14] MEDS: VITAMIN B COMPLEX TAB PO SCH (08:08)
[2021-01-14] MEDS: ASCORBIC ACID 500 MG TAB PO SCH ×2 (08:08→21:20)
[2021-01-14] MEDS: DULoxetine HCL 60 MG CAP PO SCH (08:08)
[2021-01-14] MEDS: FIDAXOMICIN 200 MG TAB PO SCH ×2 (08:08→21:21)
[2021-01-14] MEDS: MULTIVITAMIN TAB PO SCH (08:09)
[2021-01-14] MEDS: GABAPENTIN 300 MG CAP PO SCH (08:09)
[2021-01-14] MEDS: PANTOprazole 40 MG TAB PO SCH (08:09)
[2021-01-14] MEDS: LORATADINE 10 MG TAB PO SCH (08:09)
[2021-01-14] MEDS: FERROUS SULFATE 325 MG TAB PO SCH (08:09)
[2021-01-14] MEDS: CALCIUM 600MG + VIT D 400 IU TAB PO SCH (08:09)
[2021-01-14] MEDS: DICLOFENAC SOD 1% GEL 100 GM TUBE EXT SCH ×4 (08:10→21:21)
[2021-01-14] MEDS: fentaNYL 50 MCG/HR TDSY TD SCH (08:10)
[2021-01-14] MEDS: CHOLESTYRAMINE LIGHT 4 GM PKT PO SCH ×2 (10:21→21:22)
[2021-01-14] MEDS: ENOXAPARIN INJ 40 MG/0.4 ML SYR SQ SCH (17:18)
[2021-01-14] MEDS: MAGNESIUM SULFATE / D5W 1 GM/100 ML BAG IV SCH ×2 (18:48→20:37)
[2021-01-14] MEDS: MELATONIN 3 MG TAB PO SCH (21:18)
[2021-01-14] MEDS: ASPIRIN 81 MG ECTAB PO SCH (21:20)
[2021-01-14] MEDS: GABAPENTIN 600 MG TAB PO SCH (21:20)
--- NOTE | 2021-01-14 21:50 | Hospitalist Progress Note ---
Date of Service January 14, 2021 Assessment & Plan (1) Sepsis: due to C diff colitis no evidence of pneumonia, no UTI on UA, no other significant findings on CT abd/pelvis vitals are stable, no fever, WBC is up slightly at 20k initially treated the C diff with Vanco 500mg PO q6 and Flagyl IV received two liters of NSS, no further fluids needed at this time good response to the Vanco, but patient and daughter say that she was already on prolonged vanco taper want to try Dificid, they actually got a 10 day prescription filled from the behavioral health clinician from last bout but never had to use it Now on Dificid 200mg BID, continue Flagyl as she is having more diarrhea resume Questran diarrhea appears to be improving. will consult ID for their input (2) C. difficile colitis: see above change to Dificid 200mg BID on 01/12 this is her 3rd bout of C diff in the past three months, she is miserable consult ID discussed that she would benefit from outpatient follow up with ID or gastroenterology at tertiary care might need to consider stool transplant CT abdomen pelvis showed colitis and enteritis, no other significant findings WBC down to 18 from 20k, less diarrhea today, resumed Questran on 01/13 (3) Chronic left hip pain: Outpatient management deferred due to ongoing C. difficile, Covid and bacterial pneumonia PT/OT (4) Ulcer of left heel: No surrounding cellulitis just saw wound clinic on Thursday continue Aquacel, follow up with wound clinic (5) Sacral ulcer: No surrounding cellulitis suspected Consult wound care (6) Moderate mitral regurgitation: Noted (7) (HFpEF) heart failure with preserved ejection fraction: chronic, has pitting edema in legs bilaterally not normally on diuretic hesitant to start right now since she is losing fluids in her diarrhea (8) Gastroesophageal reflux disease: Switch lansoprazole to pantoprazole as per hospital formulary. (9) Follicular lymphoma: Notable history for this although management has been deferred due to recurrent infections. (10) DVT prophylaxis: Lovenox 40 mg SQ daily Admission and Anticipated Discharge Date Admission Date: January 08, 2021 Subjective 75 yo female reports feeling better. Still having loose stools, but they are more firm. Review of Systems Review of Systems: All systems reviewed & are unremarkable except as noted in HPI & below Physical Exam Physical Exam: Constitutional: WD/WN, vitals as above + frail appearing Neck: trachea midline, no thyromegaly Respiratory: normal respiratory effort, lungs clear to auscultation Cardiovascular: RRR, no murmur, no edema Rate/Rhythm: regular rate and regular rhythm Heart Sounds: normal S1, normal S2 and + murmur Vessels: no JVD Extremities: normal capillary refill and + edema (pitting in legs) Gastrointestinal (Abdomen): normal bowel sounds, soft, nontender, no hepatosple nomegaly Musculoskeletal: no cyanosis or clubbing, extremities motor strength 5/5 Skin: no rashes, warm and dry Neurologic: patellar DTR's 2+ bilat, sensation intact and PERRL, EOMI, accommodation nl, no face palsy, no dysarthria Psychiatric: A+Ox3, euthymic affect Lymphatic: no cervical or axillary lymphadenopathy Results & Data Results & Data ([facility]) Vital Signs (Past 12 Hours) Vital Signs Temp Pulse Resp BP Pulse Ox 01/14/21 21:35 36.5 C 93 H 18 114/72 92 01/14/21 15:33 36.6 C 92 H 18 93/62 L 93 PG Care Time/CCT Total # of Minutes Spent Total Time Spent with Patient: Total time spent is greater than 50% in coordination of care (as documented) at patient's floor/unit and/or counseling patient: Coding Level of Care Code 42020 Subseq Hosp Care Lvl 3 Diagnoses Sepsis A41.9 C. difficile colitis A04.72 Chronic left hip pain M25.552; G89.29 Ulcer of left heel L97.429 Sacral ulcer L98.429 Moderate mitral regurgitation I34.0 (HFpEF) heart failure with preserved ejection fraction I50.31 Heart failure chronicity: acute Gastroesophageal reflux disease K21.9 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 Follicular lymphoma type: unspecified follicular type Lymphoma site: unspecified region DVT prophylaxis Z29.9 Time Spent (min) 35 (1) (HFpEF) heart failure with preserved ejection fraction Heart failure chronicity: acute Qualified Code(s): I50.31 - Acute diastolic (congestive) heart failure (2) Follicular lymphoma Follicular lymphoma type: unspecified follicular type Lymphoma site: unspecified region Qualified Code(s): C82.90 - Follicular lymphoma, unspecified, unspecified site
[2021-01-15] MEDS: CHECK fentaNYL PATCH PLACEMENT SCH ×3 (00:13→16:17)
[2021-01-15] MEDS: metroNIDAZOLE 500 MG/100 ML BAG IV SCH ×3 (04:38→20:43)
[2021-01-15 06:54] LABS: Basophils # (auto) 0.03 K/uL (0-0.2); Basophils % (auto) 0.2 %; Eosinophils % (auto) 1.7 %; Hematocrit (blood only) 30.5 % (37-47); Immature Granulocytes # (auto) 0.23 K/uL (0.00-0.02); Immature Granulocytes % (auto) 1.3 %; Lymphocytes # (auto) 1.62 K/uL (1.2-3.4); Lymphocytes % (auto) 9.1 %; Mean Corpuscular Hemoglobin 24.8 pg (25-34); Mean Corpuscular Hgb Conc 32.8 g/dL (32-36); Mean Corpuscular Volume 75.5 fL (80-100); Mean Platelet Volume 8.5 fL (7.4-10.4); Monocytes # (auto) 0.84 K/uL (0.11-0.59); Monocytes % (auto) 4.7 %; Neutrophils # (auto) 14.74 K/uL (1.4-6.5); Platelet Count 848 K/uL (130-400); RDW Coefficient of Variation 18.3 % (11.5-14.5); RDW Standard Deviation 51.1 fL (36.4-46.3); Red Blood Count 4.04 M/uL (4.2-5.4); White Blood Count 17.76 K/uL (4.8-10.8)
[2021-01-15 07:19] LABS: BUN Creatinine Ratio 24.1 (10-20); Calcium 8.9 mg/dl (8.5-10.1); Creatinine Clr Calc Pharmacy 73.8 ml/min; Est GFR (African American) 101.4; Est GFR (Non-African American) 87.5; Potassium 3.6 mmol/L (3.5-5.1)
[2021-01-15] MEDS: PANTOprazole 40 MG TAB PO SCH (08:48)
[2021-01-15] MEDS: FIDAXOMICIN 200 MG TAB PO SCH ×2 (08:48→20:41)
[2021-01-15] MEDS: CALCIUM 600MG + VIT D 400 IU TAB PO SCH (08:49)
[2021-01-15] MEDS: DULoxetine HCL 60 MG CAP PO SCH (08:49)
[2021-01-15] MEDS: VITAMIN B COMPLEX TAB PO SCH (08:49)
[2021-01-15] MEDS: ASCORBIC ACID 500 MG TAB PO SCH ×2 (08:49→20:42)
[2021-01-15] MEDS: GABAPENTIN 300 MG CAP PO SCH (08:49)
[2021-01-15] MEDS: LORATADINE 10 MG TAB PO SCH (08:49)
[2021-01-15] MEDS: MULTIVITAMIN TAB PO SCH (08:49)
[2021-01-15] MEDS: FERROUS SULFATE 325 MG TAB PO SCH (08:49)
[2021-01-15] MEDS: CHOLECALCIFEROL 1,000 UNITS 25 MCG TAB PO SCH (08:49)
[2021-01-15] MEDS: DICLOFENAC SOD 1% GEL 100 GM TUBE EXT SCH ×4 (08:50→20:41)
[2021-01-15] MEDS: CHOLESTYRAMINE LIGHT 4 GM PKT PO SCH (10:42)
[2021-01-15] MEDS: ENOXAPARIN INJ 40 MG/0.4 ML SYR SQ SCH (17:11)
[2021-01-15] MEDS: oxyCODONE/ACETAMINOPHEN 5mg/325mg TAB PO PRN (18:51)
[2021-01-15] MEDS: ASPIRIN 81 MG ECTAB PO SCH (20:42)
--- NOTE | 2021-01-15 22:11 | Hospitalist Progress Note ---
Date of Service January 15, 2021 Assessment & Plan (1) Sepsis: due to C diff colitis no evidence of pneumonia, no UTI on UA, no other significant findings on CT abd/pelvis vitals are stable, no fever, WBC is up slightly at 20k initially treated the C diff with Vanco 500mg PO q6 and Flagyl IV received two liters of NSS, no further fluids needed at this time good response to the Vanco, but patient and daughter say that she was already on prolonged vanco taper want to try Dificid, they actually got a 10 day prescription filled from the clay miller from last bout but never had to use it Now on Dificid 200mg BID, continue Flagyl as she is having more diarrhea held Questran; will monitor diarrhea appears to be improving. will consult ID for their input (2) C. difficile colitis: see above change to Dificid 200mg BID on 01/12 this is her 3rd bout of C diff in the past three months, she is miserable consult ID discussed that she would benefit from outpatient follow up with ID or gastroenterology at tertiary care might need to consider stool transplant CT abdomen pelvis showed colitis and enteritis, no other significant findings WBC is slightly lower,, less diarrhea today, resumed Questran on 01/13. will hold for tomorrow. (3) Chronic left hip pain: Outpatient management deferred due to ongoing C. difficile, Covid and bacterial pneumonia PT/OT (4) Ulcer of left heel: No surrounding cellulitis just saw wound clinic on Thursday continue Aquacel, follow up with wound clinic (5) Sacral ulcer: No surrounding cellulitis suspected Consult wound care (6) Moderate mitral regurgitation: Noted (7) (HFpEF) heart failure with preserved ejection fraction: chronic, has pitting edema in legs bilaterally not normally on diuretic hesitant to start right now since she is losing fluids in her diarrhea (8) Gastroesophageal reflux disease: Switch lansoprazole to pantoprazole as per hospital formulary. (9) Follicular lymphoma: Notable history for this although management has been deferred due to recurrent infections. (10) DVT prophylaxis: Lovenox 40 mg SQ daily Admission and Anticipated Discharge Date Admission Date: January 08, 2021 Subjective Patient reports having small amount of stool . She reports she gets constipation normally. Review of Systems Review of Systems: All systems reviewed & are unremarkable except as noted in HPI & below Physical Exam Physical Exam: Constitutional: WD/WN, vitals as above + frail appearing Neck: trachea midline, no thyromegaly Respiratory: normal respiratory effort, lungs clear to auscultation Cardiovascular: RRR, no murmur, no edema Rate/Rhythm: regular rate and regular rhythm Heart Sounds: normal S1, normal S2 and + murmur Vessels: no JVD Extremities: normal capillary refill and + edema (pitting in legs) Gastrointestinal (Abdomen): normal bowel sounds, soft, nontender, no hepatosplenomegaly Musculoskeletal: no cyanosis or clubbing, extremities motor strength 5/5 Skin: no rashes, warm and dry Neurologic: patellar DTR's 2+ bilat, sensation intact and PERRL, EOMI, accommodation nl, no face palsy, no dysarthria Psychiatric: A+Ox3, euthymic affect Lymphatic: no cervical or axillary lymphadenopathy Results & Data Results & Data ([facility]) Vital Signs (Past 12 Hours) Vital Signs Temp Pulse Resp BP Pulse Ox 01/15/21 14:59 36.7 C 89 16 97/61 L 95 PG Care Time/CCT Total # of Minutes Spent Total Time Spent with Patient: Total time spent is greater than 50% in coordination of care (as documented) at patient's floor/unit and/or counseling patient: Coding Level of Care Code 41836 Subseq Hosp Care Lvl 2 Diagnoses Sepsis A41.9 C. difficile colitis A04.72 Chronic left hip pain M25.552; G89.29 Ulcer of left heel L97.429 Sacral ulcer L98.429 Moderate mitral regurgitation I34.0 (HFpEF) heart failure with preserved ejection fraction I50.31 Heart failure chronicity: acute Gastroesophageal reflux disease K21.9 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 Follicular lymphoma type: unspecified follicular type Lymphoma site: unspecified region DVT prophylaxis Z29.9 Time Spent (min) 25 (1) (HFpEF) heart failure with preserved ejection fraction Heart failure chronicity: acute Qualified Code(s): I50.31 - Acute diastolic (congestive) heart failure (2) Follicular lymphoma Follicular lymphoma type: unspecified follicular type Lymphoma site: unspecified region Qualified Code(s): C82.90 - Follicular lymphoma, unspecified, unspecified site
[2021-01-16] MEDS: GABAPENTIN 600 MG TAB PO SCH ×2 (00:07→20:59)
[2021-01-16] MEDS: MELATONIN 3 MG TAB PO SCH ×2 (00:07→20:59)
[2021-01-16] MEDS: CHECK fentaNYL PATCH PLACEMENT SCH ×4 (00:07→23:17)
[2021-01-16] MEDS: metroNIDAZOLE 500 MG/100 ML BAG IV SCH ×3 (05:37→20:39)
[2021-01-16 06:48] LABS: Basophils # (auto) 0.05 K/uL (0-0.2); Basophils % (auto) 0.2 %; Eosinophils # (auto) 0.31 K/uL (0-0.5); Eosinophils % (auto) 1.4 %; Hematocrit (blood only) 33.6 % (37-47); Immature Granulocytes # (auto) 0.17 K/uL (0.00-0.02); Immature Granulocytes % (auto) 0.8 %; Lymphocytes % (auto) 11.2 %; Mean Corpuscular Hemoglobin 24.8 pg (25-34); Mean Corpuscular Hgb Conc 32.7 g/dL (32-36); Mean Corpuscular Volume 75.8 fL (80-100); Mean Platelet Volume 8.4 fL (7.4-10.4); Monocytes # (auto) 1.01 K/uL (0.11-0.59); Monocytes % (auto) 4.7 %; Neutrophils # (auto) 17.56 K/uL (1.4-6.5); Neutrophils % (auto) 81.7 %; Platelet Count 962 K/uL (130-400); RDW Coefficient of Variation 18.6 % (11.5-14.5); RDW Standard Deviation 52.1 fL (36.4-46.3); Red Blood Count 4.43 M/uL (4.2-5.4)
[2021-01-16 07:15] LABS: Creatinine Clr Calc Pharmacy 92.3 ml/min; Est GFR (African American) 109.1; Est GFR (Non-African American) 94.1; Potassium 3.9 mmol/L (3.5-5.1)
[2021-01-16] MEDS: FIDAXOMICIN 200 MG TAB PO SCH (08:10)
[2021-01-16] MEDS: CHOLECALCIFEROL 1,000 UNITS 25 MCG TAB PO SCH (08:10)
[2021-01-16] MEDS: ASCORBIC ACID 500 MG TAB PO SCH ×2 (08:10→20:37)
[2021-01-16] MEDS: CALCIUM 600MG + VIT D 400 IU TAB PO SCH (08:11)
[2021-01-16] MEDS: MULTIVITAMIN TAB PO SCH (08:11)
[2021-01-16] MEDS: VITAMIN B COMPLEX TAB PO SCH (08:11)
[2021-01-16] MEDS: GABAPENTIN 300 MG CAP PO SCH (08:11)
[2021-01-16] MEDS: FERROUS SULFATE 325 MG TAB PO SCH (08:11)
[2021-01-16] MEDS: DULoxetine HCL 60 MG CAP PO SCH (08:11)
[2021-01-16] MEDS: PANTOprazole 40 MG TAB PO SCH (08:11)
[2021-01-16] MEDS: LORATADINE 10 MG TAB PO SCH (08:11)
[2021-01-16] MEDS: DICLOFENAC SOD 1% GEL 100 GM TUBE EXT SCH ×4 (08:15→20:38)
[2021-01-16] MEDS: ENOXAPARIN INJ 40 MG/0.4 ML SYR SQ SCH (17:11)
[2021-01-16] MEDS: oxyCODONE/ACETAMINOPHEN 5mg/325mg TAB PO PRN (20:35)
[2021-01-16] MEDS: ASPIRIN 81 MG ECTAB PO SCH (20:37)
--- NOTE | 2021-01-16 20:47 | XRay Report ---
KUB HISTORY: C. Difficile colitis. Generalized abdominal pain. COMPARISON: Abdomen and pelvis CT 01/08/2021. FINDINGS: Slight progression of the gas-filled mildly dilated loops of large and small bowel. L3-L5 p osterior decompression and fusion is again noted. There are bilateral total hip arthroplasties. Left lower quadrant pain pump is again noted. Elevation of the right hemidiaphragm, unchanged. Moderate st ool seen within the colon. No renal calculi. No ureteral calculi. No pneumoperitoneum or pneumatosis . IMPRESSION: Slight progression of the mildly dilated gas-filled loops of large and small bowel. This could repres ent a mild ileus. ACT 112: Negative or not required by law. Electronically signed by: Abundio Ansari M.D. 01/16/2021 8:46 PM
--- NOTE | 2021-01-16 21:59 | Hospitalist Progress Note ---
Date of Service January 16, 2021 Assessment & Plan (1) Sepsis: due to C diff colitis no evidence of pneumonia, no UTI on UA, no other significant findings on CT abd/pelvis vitals are stable, no fever. WBC had decreased but never normalized with dificid. Given that WBC remains elevated being on dificid, will switch back to vanco and flagyl. initially treated the C diff with Vanco 500mg PO q6 and Flagyl IV and was improving. Good response to the Vanco, but patient and daughter say that she was already on prolonged vanco taper Wanted to try Dificid, they actually got a 10 day prescription filled from the real estate assistant from last bout but never had to use it As stated above, will stop the dificid and switch to vanco 500 mg PO Q6H, and Flagyl 500mg IV Q8h diarrhea appears to be improving. will consult ID for their input (2) C. difficile colitis: see above change to Dificid 200mg BID on 01/12 this is her 3rd bout of C diff in the past three months, she is miserable consult ID discussed that she would benefit from outpatient follow up with ID or gastroenterology at tertiary care might need to consider stool transplant CT abdomen pelvis showed colitis and enteritis, no other significant findings As above, switched to maximum treatment for C. diff. will obtain abd. x ray (3) Chronic left hip pain: Outpatient management deferred due to ongoing C. difficile, Covid and bacterial pneumonia PT/OT (4) Ulcer of left heel: No surrounding cellulitis just saw wound clinic on Thursday continue Aquacel, follow up with wound clinic (5) Sacral ulcer: No surrounding cellulitis suspected Consult wound care (6) Moderate mitral regurgitation: Noted (7) (HFpEF) heart failure with preserved ejection fraction: chronic, has pitting edema in legs bilaterally not normally on diuretic hesitant to start right now since she is losing fluids in her diarrhea (8) Gastroesophageal reflux disease: Switch lansoprazole to pantoprazole as per hospital formulary. (9) Follicular lymphoma: Notable history for this although management has been deferred due to recurrent infections. (10) DVT prophylaxis: Lovenox 40 mg SQ daily Admission and Anticipated Discharge Date Admission Date: January 08, 2021 Subjective Patient has been having multiple episodes of loose stools today. Review of Systems Review of Systems: All systems reviewed & are unremarkable except as noted in HPI & below Physical Exam Physical Exam: Constitutional: WD/WN, vitals as above + frail appearing Neck: trachea midline, no thyromegaly Respiratory: normal respiratory effort, lungs clear to auscultation Cardiovascular: RRR, no murmur, no edema Rate/Rhythm: regular rate and regular rhythm Heart Sounds: normal S1, normal S2 and + murmur Vessels: no JVD Extremities: normal capillary refill and + edema (pitting in legs) Gastrointestinal (Abdomen): normal bowel sounds, soft, nontender, no hepatosplenomegaly Musculoskeletal: no cyanosis or clubbing, extremities motor strength 5/5 Skin: no rashes, warm and dry Neurologic: patellar DTR's 2+ bilat, sensation intact and PERRL, EOMI, accommodation nl, no face palsy, no dysarthria Psychiatric: A+Ox3, euthymic affect Lymphatic: no cervical or axillary lymphadenopathy Results & Data Results & Data ([facility]) Vital Signs (Past 12 Hours) Vital Signs Temp Pulse Resp BP 01/16/21 15:23 36.9 C 93 H 18 98/67 L PG Care Time/CCT Total # of Minutes Spent Total Time Spent with Patient: Total time spent is greater than 50% in coordination of care (as documented) at patient's floor/unit and/or counseling patient: Coding Level of Care Code 88318 Subseq Hosp Care Lvl 3 Diagnoses Sepsis A41.9 C. difficile colitis A04.72 Chronic left hip pain M25.552; G89.29 Ulcer of left heel L97.429 Sacral ulcer L98.429 Moderate mitral regurgitation I34.0 (HFpEF) heart failure with preserved ejection fraction I50.31 Heart failure chronicity: acute Gastroesophageal reflux disease K21.9 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 Follicular lymphoma type: unspecified follicular type Lymphoma site: unspecified region DVT prophylaxis Z29.9 Time Spent (min) 35 (1) (HFpEF) heart failure with preserved ejection fraction Heart failure chronicity: acute Qualified Code(s): I50.31 - Acute diastolic (congestive) heart failure (2) Follicular lymphoma Follicular lymphoma type: unspecified follicular type Lymphoma site: unspecified region Qualified Code(s): C82.90 - Follicular lymphoma, unspecified, unspecified site
[2021-01-16] MEDS: RASPBERRY SYRUP 5 ML UDP PO SCH (23:17)
[2021-01-16] MEDS: VANCOMYCIN HCL 500 MG/10 ML SOLN PO SCH (23:17)
[2021-01-17] MEDS: metroNIDAZOLE 500 MG/100 ML BAG IV SCH (05:55)
[2021-01-17] MEDS: RASPBERRY SYRUP 5 ML UDP PO SCH ×3 (05:55→18:04)
[2021-01-17] MEDS: VANCOMYCIN HCL 500 MG/10 ML SOLN PO SCH ×3 (05:55→18:04)
[2021-01-17 06:42] LABS: Basophils # (auto) 0.05 K/uL (0-0.2); Basophils % (auto) 0.2 %; Eosinophils # (auto) 0.21 K/uL (0-0.5); Hematocrit (blood only) 31.4 % (37-47); Hemoglobin 10.2 g/dL (12.0-16.0); Immature Granulocytes % (auto) 0.5 %; Lymphocytes # (auto) 1.72 K/uL (1.2-3.4); Lymphocytes % (auto) 8.5 %; Mean Corpuscular Hgb Conc 32.5 g/dL (32-36); Mean Platelet Volume 8.2 fL (7.4-10.4); Monocytes # (auto) 0.76 K/uL (0.11-0.59); Monocytes % (auto) 3.8 %; Neutrophils # (auto) 17.28 K/uL (1.4-6.5); Platelet Count 777 K/uL (130-400); RDW Coefficient of Variation 18.5 % (11.5-14.5); RDW Standard Deviation 51.8 fL (36.4-46.3); Red Blood Count 4.08 M/uL (4.2-5.4); White Blood Count 20.12 K/uL (4.8-10.8)
[2021-01-17 07:13] LABS: BUN Creatinine Ratio 28.3 (10-20); Calcium 8.6 mg/dl (8.5-10.1); Est GFR (African American) 110.5; Est GFR (Non-African American) 95.3; Potassium 3.8 mmol/L (3.5-5.1)
[2021-01-17] MEDS: CHECK fentaNYL PATCH PLACEMENT SCH ×2 (09:39→16:04)
[2021-01-17] MEDS: ASCORBIC ACID 500 MG TAB PO SCH ×2 (09:40→22:04)
[2021-01-17] MEDS: MULTIVITAMIN TAB PO SCH (09:41)
[2021-01-17] MEDS: FERROUS SULFATE 325 MG TAB PO SCH (09:41)
[2021-01-17] MEDS: CALCIUM 600MG + VIT D 400 IU TAB PO SCH (09:41)
[2021-01-17] MEDS: PANTOprazole 40 MG TAB PO SCH (09:41)
[2021-01-17] MEDS: LORATADINE 10 MG TAB PO SCH (09:41)
[2021-01-17] MEDS: VITAMIN B COMPLEX TAB PO SCH (09:41)
[2021-01-17] MEDS: DULoxetine HCL 60 MG CAP PO SCH (09:41)
[2021-01-17] MEDS: GABAPENTIN 300 MG CAP PO SCH (09:41)
[2021-01-17] MEDS: DICLOFENAC SOD 1% GEL 100 GM TUBE EXT SCH ×4 (09:41→22:05)
[2021-01-17] MEDS: CHOLECALCIFEROL 1,000 UNITS 25 MCG TAB PO SCH (09:41)
[2021-01-17] MEDS: fentaNYL 50 MCG/HR TDSY TD SCH (09:55)
--- NOTE | 2021-01-17 11:49 | XRay Report ---
KUB HISTORY: c diff colitis COMPARISON: KUB 01/16/2021. FINDINGS: Multiple mildly dilated gas-filled loops of large and small bowel are seen throughout the a bdomen. This has slightly improved. Moderate well-formed stool seen throughout the colon. Chronic delbert vation of the right hemidiaphragm. Fusion hardware within the lower lumbar spine and bilateral total hip arthroplasties are again noted. There is a left lower quadrant pain pump. No renal calculi. No u reteral calculi. No pneumoperitoneum or pneumatosis. IMPRESSION: Interval improvement in the mildly dilated gas-filled loops of large and small bowel seen throughout the abdomen. ACT 112: Negative or not required by law. Electronically signed by: Abundio Ansari M.D. 01/17/2021 11:47 AM
[2021-01-17] MEDS: metroNIDAZOLE 500 MG TAB PO SCH ×2 (13:00→22:04)
[2021-01-17] MEDS: oxyCODONE/ACETAMINOPHEN 5mg/325mg TAB PO PRN (18:03)
[2021-01-17] MEDS: ENOXAPARIN INJ 40 MG/0.4 ML SYR SQ SCH (18:04)
--- NOTE | 2021-01-17 20:42 | Hospitalist Progress Note ---
Date of Service January 17, 2021 Assessment & Plan (1) Sepsis: due to C diff colitis no evidence of pneumonia, no UTI on UA, no other significant findings on CT abd/pelvis vitals are stable, no fever. WBC had decreased but never normalized with dificid. Given that WBC remains elevated being on dificid, will switch back to vanco and flagyl. initially treated the C diff with Vanco 500mg PO q6 and Flagyl IV and was improving. Patient clinically feels better today. Her vitals also improved on the medication. She was having evidence of possible ielus on KUB, whcih is why will treat as fulmonant colitis for the mean time. Diarrhea appears to be improving. Appreciate input from ID. (2) C. difficile colitis: see above change to Dificid 200mg BID on 01/12 this is her 3rd bout of C diff in the past three months, she is miserable consult ID discussed that she would benefit from outpatient follow up with ID or gastroenterology at tertiary care might need to consider stool transplant CT abdomen pelvis showed colitis and enteritis, no other significant findings As above, switched to maximum treatment for C. diff. will obtain abd. x ray (3) Chronic left hip pain: Outpatient management deferred due to ongoing C. difficile, Covid and bacterial pneumonia PT/OT (4) Ulcer of left heel: No surrounding cellulitis just saw wound clinic on Thursday continue Zenon, follow up with wound clinic (5) Sacral ulcer: No surrounding cellulitis suspected Consult wound care (6) Moderate mitral regurgitation: Noted (7) (HFpEF) heart failure with preserved ejection fraction: chronic, has pitting edema in legs bilaterally not normally on diuretic hesitant to start right now since she is losing fluids in her diarrhea (8) Gastroesophageal reflux disease: Switch lansoprazole to pantoprazole as per hospital formulary. (9) Follicular lymphoma: Notable history for this although management has been deferred due to recurrent infections. (10) DVT prophylaxis: Lovenox 40 mg SQ daily Admission and Anticipated Discharge Date Admission Date: January 08, 2021 Subjective Patient reports feeling better. Patient reports less distention Review of Systems Review of Systems: All systems reviewed & are unremarkable except as noted in HPI & below Physical Exam Physical Exam: Constitutional: WD/WN, vitals as above + frail appearing Neck: trachea midline, no thyromegaly Respiratory: normal respiratory effort, lungs clear to auscultation Cardiovascular: RRR, no murmur, no edema Rate/Rhythm: regular rate and regular rhythm Heart Sounds: normal S1, normal S2 and + murmur Vessels: no JVD Extremities: normal capillary refill and + edema (pitting in legs) Gastrointestinal (Abdomen): normal bowel sounds, soft, nontender, no hepatosplenomegaly Musculoskeletal: no cyanosis or clubbing, extremities motor strength 5/5 Skin: no rashes, warm and dry Neurologic: patellar DTR's 2+ bilat, sensation intact and PERRL, EOMI, accommodation nl, no face palsy, no dysarthria Psychiatric: A+Ox3, euthymic affect Lymphatic: no cervical or axillary lymphadenopathy Results & Data Results & Data ([facility]) Vital Signs (Past 12 Hours) Vital Signs Temp Pulse Resp BP Pulse Ox 01/17/21 15:55 36.4 C L 89 16 106/70 94 PG Care Time/CCT Total # of Minutes Spent Total Time Spent with Patient: Total time spent is greater than 50% in coordination of care (as documented) at patient's floor/unit and/or counseling patient: Coding Level of Care Code 20966 Subseq Hosp Care Lvl 3 Diagnoses Sepsis A41.9 C. difficile colitis A04.72 Chronic left hip pain M25.552; G89.29 Ulcer of left heel L97.429 Sacral ulcer L98.429 Moderate mitral regurgitation I34.0 (HFpEF) heart failure with preserved ejection fraction I50.31 Heart failure chronicity: acute Gastroesophageal reflux disease K21.9 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 Follicular lymphoma type: unspecified follicular type Lymphoma site: unspecified region DVT prophylaxis Z29.9 Time Spent (min) 40 (1) (HFpEF) heart failure with preserved ejection fraction Heart failure chronicity: acute Qualified Code(s): I50.31 - Acute diastolic (congestive) heart failure (2) Follicular lymphoma Follicular lymphoma type: unspecified follicular type Lymphoma site: unspecified region Qualified Code(s): C82.90 - Follicular lymphoma, unspecified, unspecified site
[2021-01-17] MEDS: MELATONIN 3 MG TAB PO SCH (22:04)
[2021-01-17] MEDS: HYDROCORTISONE ACETATE 25 MG SUPP PR SCH (22:05)
[2021-01-17] MEDS: ASPIRIN 81 MG ECTAB PO SCH (22:05)
[2021-01-17] MEDS: GABAPENTIN 600 MG TAB PO SCH (22:05)
[2021-01-18] MEDS: RASPBERRY SYRUP 5 ML UDP PO SCH ×5 (00:08→23:54)
[2021-01-18] MEDS: VANCOMYCIN HCL 500 MG/10 ML SOLN PO SCH ×5 (00:08→23:55)
[2021-01-18] MEDS: CHECK fentaNYL PATCH PLACEMENT SCH ×4 (00:09→23:54)
[2021-01-18] MEDS: metroNIDAZOLE 500 MG TAB PO SCH (06:17)
[2021-01-18] MEDS: VITAMIN B COMPLEX TAB PO SCH (07:56)
[2021-01-18] MEDS: GABAPENTIN 300 MG CAP PO SCH (07:57)
[2021-01-18] MEDS: CHOLECALCIFEROL 1,000 UNITS 25 MCG TAB PO SCH (07:57)
[2021-01-18] MEDS: ASCORBIC ACID 500 MG TAB PO SCH ×2 (07:57→21:28)
[2021-01-18] MEDS: DULoxetine HCL 60 MG CAP PO SCH (07:57)
[2021-01-18] MEDS: LORATADINE 10 MG TAB PO SCH (07:58)
[2021-01-18] MEDS: FERROUS SULFATE 325 MG TAB PO SCH (07:58)
[2021-01-18] MEDS: PANTOprazole 40 MG TAB PO SCH (07:58)
[2021-01-18] MEDS: MULTIVITAMIN TAB PO SCH (07:58)
[2021-01-18] MEDS: CALCIUM 600MG + VIT D 400 IU TAB PO SCH (07:58)
[2021-01-18] MEDS: PSYLLIUM 58.6% POWDER PACKET PO SCH (07:59)
[2021-01-18] MEDS: DICLOFENAC SOD 1% GEL 100 GM TUBE EXT SCH ×4 (08:00→21:29)
[2021-01-18] MEDS: HYDROCORTISONE ACETATE 25 MG SUPP PR SCH ×2 (08:01→21:32)
[2021-01-18 09:39] LABS: Hematocrit (blood only) 37.5 % (37-47); Hemoglobin 12.2 g/dL (12.0-16.0); Mean Corpuscular Hemoglobin 25.3 pg (25-34); Mean Corpuscular Hgb Conc 32.5 g/dL (32-36); Mean Corpuscular Volume 77.8 fL (80-100); Mean Platelet Volume 8.4 fL (7.4-10.4); Platelet Count 902 K/uL (130-400); RDW Standard Deviation 53.5 fL (36.4-46.3); Red Blood Count 4.82 M/uL (4.2-5.4); White Blood Count 23.01 K/uL (4.8-10.8)
[2021-01-18 10:09] LABS: BUN Creatinine Ratio 21.1 (10-20); Creatinine Clr Calc Pharmacy 73.8 ml/min; Est GFR (African American) 101.4; Est GFR (Non-African American) 87.5; Potassium 3.8 mmol/L (3.5-5.1)
[2021-01-18 10:24] LABS: ALC (manual) 2.28 K/uL (1.2-3.4); Lymphocytes # (manual) 2.28 K/uL (1.2-3.4); Lymphocytes % (manual) 9.9 %; Monocytes # (manual) 0.83 K/uL (0.11-0.59); Monocytes % (manual) 3.6 %; Neutrophils % (manual) 86.5 %
--- NOTE | 2021-01-18 11:51 | XRay Report ---
KUB HISTORY: Acute generalized abdominal pain with reported colitis c diff colitis COMPARISON: KUB 01/17/2021, CT abdomen and pelvis 01/08/2021 FINDINGS: Bowel gas pattern overall appears nonobstructive. Air-filled nondilated loops of large and small bowel redemonstrated which appear generally unchanged from comparison. Battery pack projects ov er the abdominal left lower quadrant. No renal calculi. No ureteral calculi. No pneumoperitoneum or pneumatosis. Bilateral hip total joint arthroplasties. Spinal fusion hardware of the lower lumbar spi ne. Right hemidiaphragmatic elevation. IMPRESSION: Mild improvement of the air filled loops of large and small bowel within the central abdomen without evidence of obstruction. ACT 112: Negative or not required by law. The above report was generated using voice recognition software. It may contain grammatical, syntax o r spelling errors. Electronically signed by: Chaz Barajas M.D. 01/18/2021 11:50 AM
[2021-01-18] MEDS: ceFAZolin 1000MG 1,000 MG/7.5 ML SYR IV SCH ×2 (12:00→20:28)
[2021-01-18] MEDS: oxyCODONE/ACETAMINOPHEN 5mg/325mg TAB PO PRN ×2 (12:13→21:40)
[2021-01-18] MEDS: metroNIDAZOLE 500 MG/100 ML BAG IV SCH ×2 (13:21→21:29)
--- NOTE | 2021-01-18 14:13 | Hospitalist Progress Note ---
Date of Service January 18, 2021 Assessment & Plan (1) Sepsis: due to C diff colitis no evidence of pneumonia, no UTI on UA, no other significant findings on CT abd/pelvis vitals are stable, no fever. WBC remained elevated never normalized with dificid. Given that WBC remains elevated being on dificid, and evidence of possible ileus, switched back to vanco and flagyl for tx of fulminant colitis. Patient clinically feels better today. Her vitals also improved on the medication. WBC remains elevated. Procalcitonin now negative, ESR neg. CRP mildly elevated. Given that neutrophils are predominant: lymphoma not playing role. Appreciate input from ID. (2) C. difficile colitis: see above change to Dificid 200mg BID on 01/12 this is her 3rd bout of C diff in the past three months, she is miserable consult ID discussed that she would benefit from outpatient follow up with ID or gastroenterology at tertiary care might need to consider stool transplant CT abdomen pelvis showed colitis and enteritis, no other significant findings As above, switched to maximum treatment for C. diff. KUB appears to show improvement (3) Chronic left hip pain: Outpatient management deferred due to ongoing C. difficile, Covid and bacterial pneumonia PT/OT (4) Ulcer of left heel: No surrounding cellulitis just saw wound clinic on Thursday continue Aquacel, follow up with wound clinic culture growing staph aureus, will treat with first gen cephalosporin (5) Sacral ulcer: No surrounding cellulitis suspected Consult wound care (6) Moderate mitral regurgitation: Noted (7) (HFpEF) heart failure with preserved ejection fraction: chronic, has pitting edema in legs bilaterally not normally on diuretic hesitant to start right now since she is losing fluids in her diarrhea (8) Gastroesophageal reflux disease: Switch lansoprazole to pantoprazole as per hospital formulary. (9) Follicular lymphoma: Notable history for this although management has been deferred due to recurrent infections. (10) DVT prophylaxis: Lovenox 40 mg SQ daily Admission and Anticipated Discharge Date Admission Date: January 08, 2021 Subjective Patient reports feeling less sob over past few days. She reported feeling more SOB and attributes this to being on dificid. She continues to have lose stools. Review of Systems Review of Systems: All systems reviewed & are unremarkable except as noted in HPI & below Physical Exam Physical Exam: Constitutional: WD/WN, vitals as above + frail appearing Neck: trachea midline, no thyromegaly Respiratory: normal respiratory effort, lungs clear to auscultation Cardiovascular: RRR, no murmur, no edema Rate/Rhythm: regular rate and regular rhythm Heart Sounds: normal S1, normal S2 and + murmur Vessels: no JVD Extremities: normal capillary refill and + edema (pitting in legs) Gastrointestinal (Abdomen): normal bowel sounds, soft, nontender, no hepatosplenomegaly Musculoskeletal: no cyanosis or clubbing, extremities motor strength 5/5 Skin: no rashes, warm and dry Neurologic: patellar DTR's 2+ bilat, sensation intact and PERRL, EOMI, accommodation nl, no face palsy, no dysarthria Psychiatric: A+Ox3, euthymic affect Lymphatic: no cervical or axillary lymphadenopathy Results & Data Results & Data ([facility]) Vital Signs (Past 12 Hours) Vital Signs Temp Pulse Resp BP Pulse Ox 01/18/21 07:35 36.6 C 86 16 110/77 93 PG Care Time/CCT Total # of Minutes Spent Total Time Spent with Patient: Total time spent is greater than 50% in coordination of care (as documented) at patient's floor/unit and/or counseling patient: Coding Level of Care Code 84339 Subseq Hosp Care Lvl 3 Diagnoses Sepsis A41.9 C. difficile colitis A04.72 Chronic left hip pain M25.552; G89.29 Ulcer of left heel L97.429 Sacral ulcer L98.429 Moderate mitral regurgitation I34.0 (HFpEF) heart failure with preserved ejection fraction I50.31 Heart failure chronicity: acute Gastroesophageal reflux disease K21.9 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 Follicular lymphoma type: unspecified follicular type Lymphoma site: unspecified region DVT prophylaxis Z29.9 Time Spent (min) 35 (1) (HFpEF) heart failure with preserved ejection fraction Heart failure chronicity: acute Qualified Code(s): I50.31 - Acute diastolic (congestive) heart failure (2) Follicular lymphoma Follicular lymphoma type: unspecified follicular type Lymphoma site: unspecified region Qualified Code(s): C82.90 - Follicular lymphoma, unspecified, unspecified site
[2021-01-18] MEDS: ENOXAPARIN INJ 40 MG/0.4 ML SYR SQ SCH (17:56)
[2021-01-18] MEDS: ASPIRIN 81 MG ECTAB PO SCH (21:28)
[2021-01-18] MEDS: MELATONIN 3 MG TAB PO SCH (21:28)
[2021-01-18] MEDS: GABAPENTIN 600 MG TAB PO SCH (21:28)
[2021-01-19] MEDS: ceFAZolin 1000MG 1,000 MG/7.5 ML SYR IV SCH ×2 (03:28→11:39)
[2021-01-19] MEDS: metroNIDAZOLE 500 MG/100 ML BAG IV SCH ×2 (05:28→13:43)
[2021-01-19] MEDS: RASPBERRY SYRUP 5 ML UDP PO SCH ×3 (05:28→17:46)
[2021-01-19] MEDS: VANCOMYCIN HCL 500 MG/10 ML SOLN PO SCH ×2 (05:28→11:39)
[2021-01-19] MEDS: CALCIUM 600MG + VIT D 400 IU TAB PO SCH (08:41)
[2021-01-19] MEDS: CHECK fentaNYL PATCH PLACEMENT SCH ×2 (08:41→16:04)
[2021-01-19] MEDS: PANTOprazole 40 MG TAB PO SCH (08:41)
[2021-01-19] MEDS: GABAPENTIN 300 MG CAP PO SCH (08:42)
[2021-01-19] MEDS: VITAMIN B COMPLEX TAB PO SCH (08:42)
[2021-01-19] MEDS: CHOLECALCIFEROL 1,000 UNITS 25 MCG TAB PO SCH (08:42)
[2021-01-19] MEDS: LORATADINE 10 MG TAB PO SCH (08:43)
[2021-01-19] MEDS: MULTIVITAMIN TAB PO SCH (08:43)
[2021-01-19] MEDS: DULoxetine HCL 60 MG CAP PO SCH (08:43)
[2021-01-19] MEDS: FERROUS SULFATE 325 MG TAB PO SCH (08:43)
[2021-01-19] MEDS: ASCORBIC ACID 500 MG TAB PO SCH (08:44)
[2021-01-19] MEDS: PSYLLIUM 58.6% POWDER PACKET PO SCH ×2 (08:44→21:07)
[2021-01-19] MEDS: HYDROCORTISONE ACETATE 25 MG SUPP PR SCH (08:44)
[2021-01-19 08:45] LABS: Basophils # (auto) 0.03 K/uL (0-0.2); Basophils % (auto) 0.2 %; Eosinophils # (auto) 0.12 K/uL (0-0.5); Eosinophils % (auto) 0.7 %; Hematocrit (blood only) 33.2 % (37-47); Hemoglobin 10.6 g/dL (12.0-16.0); Immature Granulocytes # (auto) 0.07 K/uL (0.00-0.02); Immature Granulocytes % (auto) 0.4 %; Lymphocytes % (auto) 7.2 %; Mean Corpuscular Hemoglobin 24.9 pg (25-34); Mean Corpuscular Hgb Conc 31.9 g/dL (32-36); Mean Corpuscular Volume 77.9 fL (80-100); Mean Platelet Volume 8.1 fL (7.4-10.4); Monocytes # (auto) 0.86 K/uL (0.11-0.59); Monocytes % (auto) 4.8 %; Neutrophils % (auto) 86.7 %; Platelet Count 821 K/uL (130-400); RDW Coefficient of Variation 19.1 % (11.5-14.5); RDW Standard Deviation 53.8 fL (36.4-46.3); Red Blood Count 4.26 M/uL (4.2-5.4); White Blood Count 18.08 K/uL (4.8-10.8)
[2021-01-19] MEDS: DICLOFENAC SOD 1% GEL 100 GM TUBE EXT SCH ×4 (08:47→21:09)
[2021-01-19] MEDS: oxyCODONE/ACETAMINOPHEN 5mg/325mg TAB PO PRN ×3 (09:56→22:30)
[2021-01-19 09:57] LABS: BUN Creatinine Ratio 29.8 (10-20); Calcium 8.9 mg/dl (8.5-10.1); Creatinine Clr Calc Pharmacy 109.1 ml/min; Est GFR (African American) 115.3; Est GFR (Non-African American) 99.4; Potassium 3.7 mmol/L (3.5-5.1)
--- NOTE | 2021-01-19 15:21 | Hospitalist Progress Note ---
Date of Service January 19, 2021 Assessment & Plan (1) C. difficile colitis: Positive C. diff on 01/08. 3rd bout of C. diff in the past three months. - Was on Dificid 200mg BID on 01/12. - Has been on vancomycin & IV Flagyl since 01/17. - Will stop IV Flagyl - Consulted ID -> Plan for vancomycin with long taper - She would benefit from outpatient follow up with gastroenterology for fecal transplant. - Continue psyllium fiber (2) Sepsis: Due to C diff colitis. No evidence of pneumonia, no UTI on UA, no other significant findings on CT abd/pelvis. - Resolving (3) Chronic left hip pain: Outpatient management deferred due to ongoing C. difficile, Covid, and bacterial pneumonia. - PT/OT - Continue fentanyl patch & Voltaren gel - Continue gabapentin (4) Ulcer of left heel: No surrounding cellulitis on admission. Saw wound clinic on 01/08. Cultures from buttock and foot both grew MSSA. - Continue Aquacel - Hold abx at this time. (Was on cefazolin x 1 day) (5) Sacral ulcer: No surrounding cellulitis suspected. - Consult wound care - As above (6) (HFpEF) heart failure with preserved ejection fraction: Chronic, has pitting edema in legs bilaterally. Not normally on diuretic. - Hold diuretic for now - Monitor edema/volume status closely (7) Moderate mitral regurgitation: Noted. - No acute needs (8) Gastroesophageal reflux disease: - Switched lansoprazole to pantoprazole as per hospital formulary. (9) Follicular lymphoma: Notable history for this although management has been deferred due to recurrent infections. - No acute inpatient needs (10) DVT prophylaxis: Lovenox 40 mg SQ daily Admission and Anticipated Discharge Date Admission Date: January 08, 2021 Subjective Doing well overall, though diarrhea has not improved. Reports no fevers/chills, chest pain, shortness of breath, abdominal pain, nausea, or vomiting. Physical Exam Constitutional: WD/WN, vitals as above Eyes: EOM intact bilaterally; no conjunctival abnormality ENMT: external ear and nose normal, oropharynx normal Neck: trachea midline, no thyromegaly normal visual inspection Respiratory: normal respiratory effort, lungs clear to auscultation no respiratory distress Cardiovascular: RRR, no murmur, no edema Gastrointestinal (Abdomen): Inspection/Auscultation: abdomen normal to inspection; abdomen not distended Musculoskeletal: no cyanosis or clubbing, extremities motor strength 5/5 Skin: no rashes, warm and dry Neurologic: moves all extremities and awake Psychiatric: Orientation: alert, oriented to person and cooperative Results & Data Results & Data ([facility]) Vital Signs (Past 12 Hours) Vital Signs Temp Pulse Resp BP Pulse Ox 01/19/21 15:09 36.6 C 94 H 16 99/65 L 95 01/19/21 08:24 36.5 C 88 16 93/66 L 94 PG Care Time/CCT Total # of Minutes Spent Total Time Spent with Patient: Total time spent is greater than 50% in coordination of care (as documented) at patient's floor/unit and/or counseling patient: Coding Level of Care Code 06978 Subseq Hosp Care Lvl 2 Diagnoses C. difficile colitis A04.72 Sepsis A41.9 Chronic left hip pain M25.552; G89.29 Ulcer of left heel L97.429 Sacral ulcer L98.429 (HFpEF) heart failure with preserved ejection fraction I50.31 Heart failure chronicity: acute Moderate mitral regurgitation I34.0 Gastroesophageal reflux disease K21.9 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 Follicular lymphoma type: unspecified follicular type Lymphoma site: unspecified region DVT prophylaxis Z29.9 (1) (HFpEF) heart failure with preserved ejection fraction Heart failure chronicity: acute Qualified Code(s): I50.31 - Acute diastolic (congestive) heart failure (2) Follicular lymphoma Follicular lymphoma type: unspecified follicular type Lymphoma site: unspecified region Qualified Code(s): C82.90 - Follicular lymphoma, unspecified, unspecified site
[2021-01-19] MEDS: ENOXAPARIN INJ 40 MG/0.4 ML SYR SQ SCH (17:46)
[2021-01-19] MEDS: VANCOMYCIN HCL 125 MG/2.5ML SOLN PO SCH (17:46)
[2021-01-19] MEDS: ASPIRIN 81 MG ECTAB PO SCH (21:06)
[2021-01-19] MEDS: GABAPENTIN 600 MG TAB PO SCH (21:07)
[2021-01-19] MEDS: MELATONIN 3 MG TAB PO SCH (21:15)
[2021-01-20] MEDS: RASPBERRY SYRUP 5 ML UDP PO SCH ×5 (00:16→23:04)
[2021-01-20] MEDS: CHECK fentaNYL PATCH PLACEMENT SCH ×4 (00:17→22:39)
[2021-01-20] MEDS: VANCOMYCIN HCL 125 MG/2.5ML SOLN PO SCH ×5 (00:17→23:04)
[2021-01-20 06:12] LABS: Hemoglobin 8.9 g/dL (12.0-16.0); Mean Corpuscular Hemoglobin 24.5 pg (25-34); Mean Corpuscular Hgb Conc 31.8 g/dL (32-36); Mean Corpuscular Volume 77.1 fL (80-100); Platelet Count 781 K/uL (130-400); RDW Coefficient of Variation 19.3 % (11.5-14.5); RDW Standard Deviation 54.4 fL (36.4-46.3); Red Blood Count 3.63 M/uL (4.2-5.4); White Blood Count 15.48 K/uL (4.8-10.8)
[2021-01-20 06:49] LABS: BUN Creatinine Ratio 38.2 (10-20); Calcium 8.2 mg/dl (8.5-10.1); Creatinine Clr Calc Pharmacy 129.7 ml/min; Est GFR (Non-African American) 105.3; Magnesium 1.8 mg/dl (1.8-2.4); Potassium 3.7 mmol/L (3.5-5.1)
[2021-01-20] MEDS: fentaNYL 50 MCG/HR TDSY TD SCH (09:10)
[2021-01-20] MEDS: DULoxetine HCL 60 MG CAP PO SCH (09:10)
[2021-01-20] MEDS: PSYLLIUM 58.6% POWDER PACKET PO SCH ×2 (09:11→22:37)
[2021-01-20] MEDS: PANTOprazole 40 MG TAB PO SCH (09:11)
[2021-01-20] MEDS: FERROUS SULFATE 325 MG TAB PO SCH (09:12)
[2021-01-20] MEDS: GABAPENTIN 300 MG CAP PO SCH (09:12)
[2021-01-20] MEDS: oxyCODONE/ACETAMINOPHEN 5mg/325mg TAB PO PRN ×2 (09:12→19:48)
[2021-01-20] MEDS: DICLOFENAC SOD 1% GEL 100 GM TUBE EXT SCH ×4 (09:13→22:36)
[2021-01-20] MEDS ORDERED: FUROSEMIDE 20 MG in SYRINGE 0 ML IV ONE (12:30)
--- NOTE | 2021-01-20 12:33 | Hospitalist Progress Note ---
Date of Service January 20, 2021 Assessment & Plan (1) C. difficile colitis: Positive C. diff on 01/08. 3rd bout of C. diff in the past three months. - Was on Dificid 200mg BID on 01/12. - Has been on vancomycin & IV Flagyl since 01/17. - Will stop IV Flagyl - Consulted ID -> Plan for vancomycin with long taper - She would benefit from outpatient follow up with gastroenterology for fecal transplant. - Continue psyllium fiber (increased to BID on 01/19) - On 01/19, I stopped many supplements to try to avoid any confounding factors. No improvement. Will get GI involved. Unsure of when it would be acceptable to try other diarrheal agents vs. attempt Dificid again. (2) Microcytic anemia: Baseline hgb ~10-12. - Dropped to 8.9 on 01/20. No overt GI bleeding. - Anemia labs ordered for AM (3) Sepsis: Due to C diff colitis. No evidence of pneumonia, no UTI on UA, no other significant findings on CT abd/pelvis. - Resolving (4) Chronic left hip pain: Outpatient management deferred due to ongoing C. difficile, Covid, and bacterial pneumonia. - PT/OT - Continue fentanyl patch & Voltaren gel - Continue gabapentin (5) Ulcer of left heel: No surrounding cellulitis on admission. Saw wound clinic on 01/08. Cultures from buttock and foot both grew MSSA. - Continue Aquacel - Hold abx at this time. (Was on cefazolin x 1 day) (6) Sacral ulcer: No surrounding cellulitis suspected. - Consult wound care - As above (7) (HFpEF) heart failure with preserved ejection fraction: Chronic, has pitting edema in legs bilaterally. Not normally on diuretic. - Hold diuretic for now - Monitor edema/volume status closely -> Worsening today. Will give Lasix 20 mg IV x 1 today and monitor. - Do standing weights, I&Os to monitor diuresis. (8) Moderate mitral regurgitation: Noted. - No acute needs (9) Gastroesophageal reflux disease: - Switched lansoprazole to pantoprazole as per hospital formulary. (10) Follicular lymphoma: Notable history for this although management has been deferred due to recurrent infections. - No acute inpatient needs (11) DVT prophylaxis: Lovenox 40 mg SQ daily Admission and Anticipated Discharge Date Admission Date: January 08, 2021 Subjective Still reports many loose stools during the day. At least 3 so far today. Reports no fevers/chills, chest pain, shortness of breath, abdominal pain, nausea, or vomiting. Physical Exam Constitutional: WD/WN, vitals as above Eyes: EOM intact bilaterally; no conjunctival abnormality ENMT: external ear and nose normal, oropharynx normal Neck: trachea midline, no thyromegaly normal visual inspection Respiratory: normal respiratory effort, lungs clear to auscultation no respiratory distress Cardiovascular: RRR, no murmur, no edema Gastrointestinal (Abdomen): Inspection/Auscultation: abdomen normal to inspection; abdomen not distended Musculoskeletal: no cyanosis or clubbing, extremities motor strength 5/5 Skin: no rashes, warm and dry Neurologic: moves all extremities and awake Psychiatric: Orientation: alert, oriented to person and cooperative Results & Data Results & Data ([facility]) Vital Signs (Past 12 Hours) Vital Signs Temp Pulse Resp BP Pulse Ox 01/20/21 08:39 36.4 C L 104 H 18 135/84 98 PG Care Time/CCT Total # of Minutes Spent Total Time Spent with Patient: Total time spent is greater than 50% in co ordination of care (as documented) at patient's floor/unit and/or counseling patient: Coding Level of Care Code 22960 Subseq Hosp Care Lvl 3 Diagnoses C. difficile colitis A04.72 Microcytic anemia D50.9 Sepsis A41.9 Chronic left hip pain M25.552; G89.29 Ulcer of left heel L97.429 Sacral ulcer L98.429 (HFpEF) heart failure with preserved ejection fraction I50.31 Heart failure chronicity: acute Moderate mitral regurgitation I34.0 Gastroesophageal reflux disease K21.9 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 Follicular lymphoma type: unspecified follicular type Lymphoma site: unspecified region DVT prophylaxis Z29.9 (1) (HFpEF) heart failure with preserved ejection fraction Heart failure chronicity: acute Qualified Code(s): I50.31 - Acute diastolic (congestive) heart failure (2) Follicular lymphoma Follicular lymphoma type: unspecified follicular type Lymphoma site: unspecified region Qualified Code(s): C82.90 - Follicular lymphoma, unspecified, unspecified site
--- NOTE | 2021-01-20 15:12 | Consultation Report ---
DATE OF CONSULTATION: 01/20/2021 REASON FOR EVALUATION: Recurrent C. diff infection. HISTORY OF PRESENT ILLNESS: The patient is a 75-year-old female who has had 3 bouts of C. diff in the last 3 months. She has been treated with vancomycin and her symptoms improved each time, but usually within 3 weeks she has a relapse. She was admitted on 01/08/2021 with her third episode [facility] sores on her sacral area and left heel when she was found to be hypotensive with a blood pressure of 80. Since being hospitalized, she was found to be positive for C. diff and is having between 5 and 7 watery or loose bowel movements a day including during the night. She is on a course of vancomycin 125 mg 4 times a day and had earlier been on IV Flagyl. She is not having significant abdominal pain but the question has been raised about whether she should undergo fecal transplant. During her last episode of C. diff. she took Dificid, but after 2 days on the medication she became tachycardic and short of breath. The medication was stopped. PAST MEDICAL HISTORY: Significant, she has had chronic pain syndrome, hyperlipidemia, hypertension, lumbar canal stenosis with fusion of the lumbar spine. She has an implanted stimulator for pain. She had a follicular lymphoma, being treated by Dr. Verde. She has had a cholecystectomy, right knee replacement, laminectomy, back spine fusions 2005, 2006 and 2012, bilateral hip replacements. SOCIAL HISTORY: The patient is a , lives at home, lives mostly with family at this time. MEDICATIONS: Per list. ALLERGIES: LATEX, SULFA AND NICKEL. PHYSICAL EXAMINATION: GENERAL: The patient is kind of hunched and walks with an aid of a walker. VITAL SIGNS: Normal. ABDOMEN: Soft and nontender. IMPRESSION: The patient has recurrent Clostridium difficile and is not improving after 12 days on vancomycin. She has had an adverse reaction to Dificid and I would recommend at this point that she be considered a candidate for fecal transplant, opted to investigate where she is able to get this currently either through [facility] or [place]. In the meantime, I plan on adding Xifaxan 550 mg twice a day, which is shown to have some activity against C. diff and should not have the adverse effect that she experienced with Dificid. We will continue the vancomycin along with Xifaxan.
[2021-01-20] MEDS: ENOXAPARIN INJ 40 MG/0.4 ML SYR SQ SCH (17:11)
[2021-01-20] MEDS: ASPIRIN 81 MG ECTAB PO SCH (22:35)
[2021-01-20] MEDS: GABAPENTIN 600 MG TAB PO SCH (22:35)
[2021-01-20] MEDS: rifAXIMin 550 MG TABLET PO SCH (22:36)
[2021-01-20] MEDS: MELATONIN 3 MG TAB PO SCH (22:37)
[2021-01-21] MEDS: oxyCODONE/ACETAMINOPHEN 5mg/325mg TAB PO PRN (01:40)
[2021-01-21] MEDS: VANCOMYCIN HCL 125 MG/2.5ML SOLN PO SCH ×2 (05:51→12:40)
[2021-01-21] MEDS: RASPBERRY SYRUP 5 ML UDP PO SCH ×2 (05:51→12:40)
[2021-01-21 06:13] LABS: Hematocrit (blood only) 31.7 % (37-47); Hemoglobin 10.2 g/dL (12.0-16.0); Mean Corpuscular Hemoglobin 24.8 pg (25-34); Mean Corpuscular Hgb Conc 32.2 g/dL (32-36); Mean Corpuscular Volume 77.1 fL (80-100); Mean Platelet Volume 8.2 fL (7.4-10.4); Platelet Count 891 K/uL (130-400); RDW Coefficient of Variation 19.7 % (11.5-14.5); RDW Standard Deviation 55.5 fL (36.4-46.3); Red Blood Count 4.11 M/uL (4.2-5.4); White Blood Count 17.67 K/uL (4.8-10.8)
[2021-01-21 06:29] LABS: BUN Creatinine Ratio 31.1 (10-20); Calcium 8.1 mg/dl (8.5-10.1); Creatinine Clr Calc Pharmacy 111.6 ml/min; Est GFR (African American) 116.1; Est GFR (Non-African American) 100.2; Magnesium 1.9 mg/dl (1.8-2.4); Potassium 4.2 mmol/L (3.5-5.1)
[2021-01-21 06:34] LABS: Ferritin 88.1 ng/ml (8-388)
[2021-01-21] MEDS: CHECK fentaNYL PATCH PLACEMENT SCH ×2 (08:59→15:45)
[2021-01-21] MEDS: PSYLLIUM 58.6% POWDER PACKET PO SCH ×2 (08:59→20:20)
[2021-01-21] MEDS: FERROUS SULFATE 325 MG TAB PO SCH (09:00)
[2021-01-21] MEDS: DULoxetine HCL 60 MG CAP PO SCH (09:00)
[2021-01-21] MEDS: GABAPENTIN 300 MG CAP PO SCH (09:00)
[2021-01-21] MEDS: PANTOprazole 40 MG TAB PO SCH (09:00)
[2021-01-21] MEDS: rifAXIMin 550 MG TABLET PO SCH (09:00)
[2021-01-21] MEDS: DICLOFENAC SOD 1% GEL 100 GM TUBE EXT SCH ×4 (09:03→20:20)
[2021-01-21 10:53] LABS: Folate (Folic Acid) > 20.00 ng/ml (>5.38); Vitamin B12 475 pg/ml (193-986)
--- NOTE | 2021-01-21 12:31 | Hospitalist Progress Note ---
Date of Service January 21, 2021 Assessment & Plan (1) C. difficile colitis: Positive C. diff on 01/08. 3rd bout of C. diff in the past three months. - Was on Dificid 200mg BID on 01/12. - Has been on vancomycin & IV Flagyl since 01/17. - Consulted ID -> Plan for vancomycin with long taper - Continue psyllium fiber (increased to BID on 01/19) - On 01/21, I spoke with [facility] who feel that she could/would qualify for an inpatient fecal transplant. Dr. Loomis asked that I stop all abx as they hold it for 3 days prior to transplant. (2) Microcytic anemia: Baseline hgb ~10-12. - Dropped to 8.9 on 01/20. No overt GI bleeding. Back up to 10.2 on 01/21 - Anemia labs on 01/21 showed mixed iron deficiency and chronic disease. (Low iron, low transferrin, low/normal ferritin). Not much option to give IV iron presently with infection, but can be kept in mind once over C. diff. (3) Sepsis: Due to C diff colitis. No evidence of pneumonia, no UTI on UA, no other significant findings on CT abd/pelvis. - Resolved (4) Chronic left hip pain: Outpatient management deferred due to ongoing C. difficile, Covid, and bacterial pneumonia. - PT/OT - Continue fentanyl patch & Voltaren gel - Continue gabapentin (5) Ulcer of left heel: No surrounding cellulitis on admission. Saw wound clinic on 01/08. Cultures from buttock and foot both grew MSSA. - Continue Aquacel - Hold abx at this time. (Was on cefazolin x 1 day on 01/18) (6) Sacral ulcer: No surrounding cellulitis suspected. - Consult wound care - As above (7) (HFpEF) heart failure with preserved ejection fraction: Chronic, has pitting edema in legs bilaterally. Not normally on diuretic. - Hold diuretic for now - Monitor edema/volume status closely -> Worsening today. Will give Lasix 40 mg IV x 1 today and monitor. - Do standing weights, I&Os to monitor diuresis. (8) Moderate mitral regurgitation: Noted. - No acute needs (9) Gastroesophageal reflux disease: - Switched lansoprazole to pantoprazole as per hospital formulary. (10) Follicular lymphoma: Notable history for this although management has been deferred due to recurrent infections. - No acute inpatient needs (11) DVT prophylaxis: Lovenox 40 mg SQ daily Admission and Anticipated Discharge Date Admission Date: January 08, 2021 Subjective Still with diarrhea. Reports no fevers/chills, chest pain, shortness of breath, abdominal pain, nausea, or vomiting. Physical Exam Constitutional: WD/WN, vitals as above Eyes: EOM intact bilaterally; no conjunctival abnormality ENMT: external ear and nose normal, oropharynx normal Neck: trachea midline, no thyromegaly normal visual inspection Respiratory: normal respiratory effort, lungs clear to auscultation no respiratory distress Cardiovascular: RRR, no murmur, no edema Gastrointestinal (Abdomen): Inspection/Auscultation: abdomen normal to inspection; abdomen not distended Musculoskeletal: no cyanosis or clubbing, extremities motor strength 5/5 Skin: no rashes, warm and dry Neurologic: moves all extremities and awake Psychiatric: Orientation: alert, oriented to person and cooperative Results & Data Results & Data ([facility]) Vital Signs (Past 12 Hours) Vital Signs Temp Pulse Resp BP Pulse Ox 01/21/21 07:31 37.0 C 104 H 16 101/68 90 PG Care Time/CCT Total # of Minutes Spent Total Time Spent with Patient: Total time spent is greater than 50% in coordination of care (as documented) at patient's floor/unit and/or counseling patient: Coding Level of Care Code 54708 Subseq Hosp Care Lvl 2 Diagnoses C. difficile colitis A04.72 Microcytic anemia D50.9 Sepsis A41.9 Chronic left hip pain M25.552; G89.29 Ulcer of left heel L97.429 Sacral ulcer L98.429 (HFpEF) heart failure with preserved ejection fraction I50.31 Heart failure chronicity: acute Moderate mitral regurgitation I34.0 Gastroesophageal reflux disease K21.9 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 Follicular lymphoma type: unspecified follicular type Lymphoma site: unspecified region DVT prophylaxis Z29.9 (1) (HFpEF) heart failure with preserved ejection fraction Heart failure chronicity: acute Qualified Code(s): I50.31 - Acute diastolic (congestive) heart failure (2) Follicular lymphoma Follicular lymphoma type: unspecified follicular type Lymphoma site: unspecified region Qualified Code(s): C82.90 - Follicular lymphoma, unspecified, unspecified site
--- NOTE | 2021-01-21 16:45 | Progress Notes ---
DATE: 01/21/2021 The patient was started on Xifaxan yesterday in addition to her vancomycin. She has had adverse reaction to Dificid in the past. Dr. Lopez was able to contact a physician at the [facility] who agrees that she is a candidate for a fecal transplant. In anticipation of that, they have requested that we stop all antibiotics for 3 days prior to considering the transplant. Hopefully, the patient will be able to go to [facility] to have the transplant completed in the near future.
[2021-01-21] MEDS: GABAPENTIN 600 MG TAB PO SCH (20:20)
[2021-01-21] MEDS: ASPIRIN 81 MG ECTAB PO SCH (20:20)
[2021-01-21] MEDS: MELATONIN 3 MG TAB PO SCH (20:21)
[2021-01-22] MEDS: MELATONIN 3 MG TAB PO SCH (00:17)
[2021-01-22] MEDS: GABAPENTIN 600 MG TAB PO SCH (00:18)
[2021-01-22] MEDS: oxyCODONE/ACETAMINOPHEN 5mg/325mg TAB PO PRN ×2 (00:19→08:22)
[2021-01-22] MEDS: CHECK fentaNYL PATCH PLACEMENT SCH ×2 (00:21→07:30)
[2021-01-22 06:29] LABS: Hematocrit (blood only) 26.7 % (37-47); Hemoglobin 8.6 g/dL (12.0-16.0); Mean Corpuscular Hemoglobin 24.9 pg (25-34); Mean Corpuscular Hgb Conc 32.2 g/dL (32-36); Mean Corpuscular Volume 77.2 fL (80-100); Mean Platelet Volume 7.9 fL (7.4-10.4); Platelet Count 790 K/uL (130-400); RDW Coefficient of Variation 19.8 % (11.5-14.5); RDW Standard Deviation 55.7 fL (36.4-46.3); Red Blood Count 3.46 M/uL (4.2-5.4); White Blood Count 10.55 K/uL (4.8-10.8)
[2021-01-22 07:04] LABS: BUN Creatinine Ratio 30.7 (10-20); Creatinine Clr Calc Pharmacy 109.1 ml/min; Est GFR (African American) 115.3; Est GFR (Non-African American) 99.4; Magnesium 1.9 mg/dl (1.8-2.4); Potassium 3.7 mmol/L (3.5-5.1)
[2021-01-22] MEDS: GABAPENTIN 300 MG CAP PO SCH (07:29)
[2021-01-22] MEDS: DULoxetine HCL 60 MG CAP PO SCH (07:29)
[2021-01-22] MEDS: FERROUS SULFATE 325 MG TAB PO SCH (07:29)
[2021-01-22] MEDS: PANTOprazole 40 MG TAB PO SCH (07:30)
[2021-01-22] MEDS: PSYLLIUM 58.6% POWDER PACKET PO SCH (07:30)
[2021-01-22] MEDS: DICLOFENAC SOD 1% GEL 100 GM TUBE EXT SCH (07:31)
--- NOTE | 2021-01-22 14:40 | Discharge Summary ---
Date of Service January 22, 2021 This is a non-billable DOS. I DID NOT see the patient prior to her leaving the hospital for [facility]. Admission HPI Per Admitting Provider Lizeth Henry is a 75-year-old female who presents to the ER on advice of her wound care provider due to tachycardia and hypotension noted in the office went to wound care appointment and noted tachycardia and hypotension. The patient reports feeling generally well other than upset stomach for the last few days. She reports having C. difficile on and off since October. Her diarrhea returned 3 days ago although did not smell like her previous C. difficile therefore was just got a call for a test today. She denies any nausea, vomiting, abdominal pain. She does report reduced appetite. With her C. difficile she reports having diarrhea constantly since her first diagnosis in October and rehabilitation up until 2 to 3 weeks ago. Her stool has been much improved (although not completely normal) up until the last 3 days. She denies any fever or chills. Since August she has been hospitalized for UTI sepsis, COVID-19, bacterial pneumonia and then c. diff. She has been feeling relatively good since getting out of hospital. Having Left hip pain due to L5/S1 radiculopathy. In the ER CXR/AXR concerning for mildly distended and gas-filled loops of small bowel with scattered air-fluid levels representing nonspecific enteritis. Imaging concerning for low-grade/developing bowel obstruction although clinically not concerning for this. WBC 31.9. C. Diff positive. She was referred to medicine for admission and ongoing management of c. diff colitis. Principal Diagnosis Recurrent C. diff infection Discharge Data Allergies Allergy/AdvReac Type Severity Reaction Status Date / Time latex Allergy Mild contact Verified 01/08/21 13:30 dermatitis Sulfa (Sulfonamide Allergy Mild RASH Verified 01/08/21 13:30 Antibiotics) nickel Allergy Unknown contact Verified 01/08/21 13:30 dermatitis Consultations 01/08/21 13:16 ED Decision to Admit Stat 01/13/21 09:59 Consult Infectious Diseases Routine 01/16/21 18:23 Consult Infectious Diseases Routine 01/20/21 12:27 Consult Gastroenterology Routine 01/21/21 15:50 Burn CD for patient Stat Ordered Studies 01/08/21 14:10 CT abd pelvis IV con only Stat Hospital Course (1) C. difficile colitis: Positive C. diff on 01/08. 3rd bout of C. diff in the past three months. - Was on Dificid 200mg BID on 01/12. - Has been on vancomycin & IV Flagyl since 01/17. - Consulted ID -> Plan for vancomycin with long taper - Continue psyllium fiber (increased to BID on 01/19) - On 01/21, I spoke with [facility] who feel that she could/would qualify for an inpatient fecal transplant. Dr. Loomis asked that I stop all abx as they hold it for 3 days prior to transplant. (2) Microcytic anemia: Baseline hgb ~10-12. - Dropped to 8.9 on 01/20. No overt GI bleeding. Back up to 10.2 on 01/21 - Anemia labs on 01/21 showed mixed iron deficiency and chronic disease. (Low iron, low transferrin, low/normal ferritin). Not much option to give IV iron p resently with infection, but can be kept in mind once over C. diff. (3) Sepsis: Due to C diff colitis. No evidence of pneumonia, no UTI on UA, no other significant findings on CT abd/pelvis. - Resolved (4) Chronic left hip pain: Outpatient management deferred due to ongoing C. difficile, Covid, and bacterial pneumonia. - PT/OT - Continue fentanyl patch & Voltaren gel - Continue gabapentin (5) Ulcer of left heel: No surrounding cellulitis on admission. Saw wound clinic on 01/08. Cultures from buttock and foot both grew MSSA. - Continue Aquacel - Hold abx at this time. (Was on cefazolin x 1 day on 01/18) (6) Sacral ulcer: No surrounding cellulitis suspected. - Consult wound care - As above (7) (HFpEF) heart failure with preserved ejection fraction: Chronic, has pitting edema in legs bilaterally. Not normally on diuretic. - Hold diuretic for now - Monitor edema/volume status closely -> Worsening today. Will give Lasix 40 mg IV x 1 today and monitor. - Do standing weights, I&Os to monitor diuresis. (8) Moderate mitral regurgitation: Noted. - No acute needs (9) Gastroesophageal reflux disease: - Switched lansoprazole to pantoprazole as per hospital formulary. (10) Follicular lymphoma: Notable history for this although management has been deferred due to recurrent infections. - No acute inpatient needs (11) DVT prophylaxis: Lovenox 40 mg SQ daily Total Time Total Time Spent Total Time Spent (In Minutes): 0 Discharge Plan Discharge Items Patient Disposition: Transfer Acute Care Hospital Reason For Visit: SEPSIS, C. DIFF COLITIS Discharge Diagnosis: Recurrent C. diff colitis Activity: Resume your previous activity Non-emergency contact: Primary Care Provider Call non-emergency contact if: your symptoms worsen Follow-up/Referrals: Gunner Garcia MD [Primary Care Provider] - Diet: Low Sodium (2gm) Addtl Attending Provider Instructions: Ms. Henry was admitted with recurrent C. diff colitis. Despite 13 days of PO vancomycin and IV metronidazole (with 1 day of fidaxomicin in there which she did not tolerate), she has had continuing diarrhea x 6-7 loose bowel movements per day. Dr. Loomis agreed to arrange inpatient fecal transplant and she will be transferred to [facility]. Pending Studies at Discharge: No Stand-Alone Forms: My [facility] Skilled Items Patient informed of condition?: No DNR: No Discharge Level of Care: Other Communicable Disease: Yes Discharge Prognosis: Stable Lines: Peripheral IV Urinary Catheter: No Medications and DC Order Prescriptions: New Metamucil (with sugar) 3.4 gram Powder In Packet 1 pkg PO BID Qty: 0 RF: 0 Continued naloxone 4 mg/actuation spray,non-aerosol 4 mg INTRANASAL DIRECTED PRN (Reason: overdose) Qty: 2 RF: 0 duloxetine [Cymbalta] 60 mg capsule,delayed release(DR/EC) 120 mg PO QAM Qty: 60 RF: 2 oxycodone-acetaminophen [Percocet] 5-325 mg tablet 1 tab PO Q4H PRN (Reason: pain) Qty: 90 RF: 0 Santyl 250 unit/gram ointment 1 applic topical DAILY Qty: 30 RF: 1 cholecalciferol (vitamin D3) 2,000 unit capsule 2,000 units PO QAM RF: 0 gabapentin 600 mg tablet 300 mg PO .COMPLEX RF: 0 fentanyl 50 mcg/hr patch 72 hour 1 patch transdermal Q72H Qty: 10 RF: 0 fluticasone propionate [Flonase Allergy Relief] 50 mcg/actuation spray,suspension 2 spray INTNAS DAILY PRN (Reason: allergy symptoms) Qty: 47.4 RF: 5 lansoprazole 30 mg capsule,delayed release(DR/EC) 30 mg PO QAM RF: 0 ferrous sulfate [iron] 325 mg (65 mg iron) tablet 325 mg PO QAM RF: 0 diclofenac sodium 1 % gel 4 g topical QID Qty: 300 RF: 2 multivitamin Tablet 2 tab PO QAM RF: 0 calcium carbonate-vitamin D3 600 mg(1,500mg) -200 unit Tablet 1 tab PO QAM RF: 0 loratadine [Claritin] 10 mg Tablet 10 mg PO QAM RF: 0 melatonin 3 mg tablet 6 mg PO HS RF: 0 vitamin B complex Tablet 1 tab PO QAM RF: 0 ascorbic acid (vitamin C) [Vitamin C] 500 mg tablet 1,000 mg PO BID RF: 0 Discontinued aspirin [Adult Low Dose Aspirin] 81 mg tablet,delayed release (DR/EC) 81 mg PO QPM RF: 0 Discharge Orders: Discharge Order (Routine); Ordered 01/21/21 Ordered By: Clement Lopez Admission Data Admit Date/Time: 01/08/21 14:31 Attending Provider: Clement Lopez Admit Provider: Gary Richardson Primary Care Provider: Gunner Garcia Other Providers: [facility] ; Gary Richardson ; Saravanan Szymanski ; Susana Bueno ; Gio Schmidt I. ; Amandeep Almonte II ; Lashae Callaway ; Forest Loera ; Mike Brewster Other Interventions: Discharge Summary Assessment (RN) Last Done: 01/22/21 08:17 Coding Level of Care Code None Diagnoses C. difficile colitis A04.72 Microcytic anemia D50.9 Sepsis A41.9 Chronic left hip pain M25.552; G89.29 Ulcer of left heel L97.429 Sacral ulcer L98.429 (HFpEF) heart failure with preserved ejection fraction I50.31 Heart failure chronicity: acute Moderate mitral regurgitation I34.0 Gastroesophageal reflux disease K21.9 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 Follicular lymphoma type: unspecified follicular type Lymphoma site: unspecified region DVT prophylaxis Z29.9
== END 2021-01-22 08:45 | disposition short-term general hospital (02) | DRG 871 ==
LOC: ED 10:23 → 2S 14:31 → SUATTDRO 14:31 → 2S 15:25 → 3E 01-12 11:32

== ENCOUNTER 2024-01-31 22:35 | Inpatient (IN) ==
[2024-01-31] MEDS: SODIUM CHLORIDE 0.9% 1,000 ML IV SCH (23:39)
--- NOTE | 2024-01-31 23:39 | Emergency Department Note ---
Impression & Plan Dyspnea, Anemia, Chest pain, Aortic stenosis, Elevated troponin, Hypoxia ED Provider Note ED Provider Note NAME: JAYLEEN BARRERA AGE:78 SEX: Female : 1945 ARRIVES VIA: Private vehicle INFORMANT: Patient ED PROVIDER(s): Jennifer Candelaria DO CHIEF COMPLAINT: Shortness of breath HPI: This is a 78-year-old female who presents emergency room due to concern for shortness of breath at rest this evening. Patient has a history over the last several weeks of increased dyspnea with exertion with accompanying left-sided chest pressure. She did see her preventive medicine officer, Dr. Connor regarding this as she has a known history of "a valve problem". She states she was sent for outpatient labs. She also noted she began craving ice which to her was indicative of iron deficiency as she had this happen approximately 18 years ago. Patient takes low-dose aspirin every other day, no other anticoagulation. No recent chemotherapy despite her history of lymphoma. She states cardiology had discussed referral to [facility] for possible valve replacement, however in light of the newfound worsening anemia, they recommended close follow-up with hematology initially. Patient denies fevers, chills, recent URI symptoms. She denies any recent increasing leg swelling. Patient is a remote smoker, but does not require home oxygen and does not use any MDI/nebs at home typically. PAST MEDICAL HISTORY:See Below PAST SURGICAL HISTORY:See Below FAMILY HISTORY:See Below SOCIAL HISTORY:See Below HOME MEDICATIONS:See Below ALLERGIES:See Below VITALS:See Below PHYSICAL EXAMINATION: GENERAL: alert, well appearing, well nourished, no distress, non-toxic EYE EXAM: normal conjunctiva, PERRL and EOM's grossly intact OROPHARYNX: no exudate, no erythema, lips, buccal mucosa, and tongue normal and mucous membranes are moist NECK: supple, no nuchal rigidity, no adenopathy, non-tender LUNGS: Clear to auscultation. Normal chest wall mechanics, no w/r/r HEART: KENDRA noted 4/6, S1 normal and S2 normal ABDOMEN: abdomen soft, non-tender, normo-active bowel sounds, no masses, no rebound or guarding. BACK: Back is symmetrical on inspection and there is no deformity, no midline tenderness, no CVA tenderness. SKIN: no rashes, petechiae, orbruising UPPER EXTREMITIES: upper extremities are grossly normal. FROM, nml pulses b/l. LOWER EXTREMITIES: No pitting edema. FROM, nml pulses b/l. NEURO EXAM: Normal sensorium, cranial nerves II-XII grossly intact, normal speech, no facial droop,nogross weakness of arms, no gross weakness of legs. Gross sensation intact. No ataxia. Vital Signs: reviewed and remarkable Differential Diagnosis: pneumonia, bronchitis, COPD/Asthma exacerbation, pneumothorax, pulmonary embolism, congestive heart failure, acute coronary syndrome, as well as others were considered MEDICAL DECISION MAKING: This is a 78-year-old female who presents emergency department due to acute shortness of breath while seated this evening. Patient was noted to be mildly hypoxic by staff and was placed on oxygen via nasal cannula with improvement. Patient's oxygenation improved and she remained asymptomatic. Other vital signs stable and patient had no symptoms during my evaluation. Labs drawn and sent, IV established, EKG and chest x-ray performed bedside interpreted by me and patient monitored on telemetry. Patient with a history for of severe and recent cardiology note reviewed. Patient also found to have worsening anemia recently and was started on iron infusions. Patient's H&H here slightly improved compared to outpatient labs from last week. She denies noting any blood loss. Chest x-ray also reveals recurrence of pleural effusion on the right which patient has had previously. No other symptoms to suggest acute CHF. I feel PE is less likely. Patient noted to have a mildly elevated troponin, I suspect secondary to demand from increased work of breathing and hypoxia. Due to concern for multifactorial reasons of her complaint of dyspnea, case discussed with the hospitalist team for additional evaluation and management. Consultation(s): 0110: Discussed with Dr. Pedraza, [place] hospitalist, for additional evaluation and mgmt. ER Treatment Provided: See below Diagnostics Interpreted By Me: -ECG: Normal sinus at 93, normal axis, normal intervals, no acute ST/T wave changes -Cardiac Monitoring: An order was placed for continuous cardiac monitoring. The monitor shows a rate of 90 with normal sinus rhythm. -Laboratory studies: As stated above and show below. -Imaging studies: X-ray Chest: A single view study of the chest was reviewed and was negative for cardiomegaly, focal infiltrate, pulmonary edema, or wide mediastinum. Right pleural effusion noted. Triage Nursing Note Reviewed Prior/Outside Records Reviewed - recent cardiology visit from last week reviewed Past Med/Surg History Medical History Peripheral neuropathy Contact allergic reaction Gastroparesis History of COVID-19 2019 > hospitalized at [facility] Hx of Clostridium difficile infection hx of 2 yrs ago and treated Pleural effusion moderate to large chronic pleural effusion, most recent imaging 01/09/[address] Recurrent UTI COPD (chronic obstructive pulmonary disease) Moderate to severe aortic stenosis MSSA (methicillin susceptible Staphylococcus aureus) infection (03/2021) Chronic left hip pain Chronic pain of lower extremity, bilateral Pneumonia due to 2019 novel coronavirus resolved UTI (urinary tract infection) chronic > preventative antibiotic on med list VRE infection (vancomycin resistant Enterococcus) hx of 2 yrs ago > resolved Leukocytosis NSTEMI (non-ST elevated myocardial infarction) pt unaware Moderate mitral regurgitation Mild aortic regurgitation Bacteremia due to Gram-negative bacteria Emphysema of lung Noted on chest CTs but not reported by patient. 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 no problems since. no thinners Anxiety Piriformis syndrome Peripheral edema to legs at present Lumbar canal stenosis Gastroesophageal reflux disease Depression Atherosclerosis of aorta follows with Dr. 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 and treating with Dr Moseley (oncology) Post laminectomy syndrome Surgical History Port-A-Cath in place (01/28/23) Insertion of Access Port right IJ with Fluoroscopy(Right) - Chavo Hubbard DO, FACS Previous back surgery none to cervical spine, x3 total History of colonoscopy History of laminectomy lumbar ~2013 Status post laminectomy with spinal fusion lumbar, 2007 & 2008 H/O cataract removal with insertion of prosthetic lens bilateral S/P hip replacement (2016) bilateral 2015, 2016 History of knee replacement procedure of right knee 2001 History of cholecystectomy 1977 Family History Father Abdominal aneurysm Colorectal cancer Grandmother (Paternal) Cancer Throat Other No family history of adverse response to anesthesia Denies family history of Ovarian cancer Prostate cancer Myocardial infarction Breast cancer Social History Smoking Status: Former smoker Tobacco Type: Cigarettes packs per day: 2; Second Hand Exposure: No; Do You Dip or Chew Tobacco: No; Hx Alcohol Use: No Hx Substance Use: No Preferred Language: Nepali Communication Ability: Effective Visual Impairment: Limited Hearing Ability: Normal Public Health Dentist Required: No Beliefs That Will Affect Care: None marital status: / Current Living Situation: Alone current occupational status: retired How many Children do You have: 2 Feels Safe at Home: Yes Childhood Exposure to Second-Hand Smoke: Yes Diet: regular caffeine: Yes (drinks coffee daily ) during the past year weight has: decreased > 10 lbs Dental Care, Regularly: No Physical Activity Frequency: Does not Exercise Seatbelt Use: always Sunscreen Use: Yes Assistive Devices: None Allergies Allergies Allergy/AdvReac Type Severity Reaction Status Date / Time pollen extracts Allergy Intermediate ITCHY Verified 01/29/24 14:28 EYES, SNEEZING cellulose,oxidized Allergy Mild Rash Verified 01/29/24 14:28 [From Surgicel] latex Allergy Mild contact Verified 01/29/24 14:28 dermatitis nickel Allergy Mild contact Verified 01/29/24 14:28 dermatitis Sulfa (Sulfonamide Allergy Mild RASH Verified 01/29/24 14:28 Antibiotics) surgical glue Allergy Intermediate Uncoded 01/29/24 14:28 Home Meds Home Medications Medication Instructions Recorded Confirmed cholecalciferol (vitamin D3) 50 2,000 units PO QAM 07/27/18 02/01/24 mcg (2,000 unit) capsule multivitamin 1 tab PO BID 08/21/20 02/01/24 vitamin B complex 1 tab PO QAM 09/27/20 02/01/24 ascorbic acid (vitamin C) 500 mg 1,000 mg PO BID 12/28/20 02/01/24 tablet (Vitamin C) nicotine (polacrilex) 4 mg gum 4 mg buccal Q4H PRN Nicotine 02/08/21 02/01/24 (Nicorette) Dependence krill oil 500 mg capsule 500 mg PO QAM 06/13/21 02/01/24 melatonin 3 mg tablet 3 mg PO HS 12/04/22 02/01/24 aspirin 81 mg tablet,delayed 81 mg PO Q2D 12/23/22 02/01/24 release (Adult Low Dose Aspirin) sodium chloride 2 % eye drops 1 drp ophthalmic (eye) HS 10/23/23 02/01/24 (Jorge Luis 128) ferrous sulfate 325 mg (65 mg 650 mg PO BID 01/26/24 02/01/24 iron) tablet (iron) guar gum 1 tbsp PO QAM 02/01/24 02/01/24 methenamine hippurate 1 gram 1 g PO .DAILY AT 1630 02/01/24 02/01/24 tablet (Hiprex) Previous Rx's Medication Instructions Recorded duloxetine 60 mg capsule,delayed 120 mg (2 x 60 mg) PO QAM #180 caps 03/16/23 release (Cymbalta) mirtazapine 15 mg tablet (Remeron) 15 mg PO HS #90 tabs 03/16/23 lansoprazole 30 mg capsule,delayed 30 mg PO QAM #90 caps 10/23/23 release (Prevacid) naloxone 4 mg/actuation nasal 4 mg intranasal DIRECTED PRN 11/30/23 spray (Narcan) overdose #2 ea gabapentin 300 mg capsule 600 mg (2 x 300 mg) PO .COMPLEX 01/08/24 #450 caps oxycodone-acetaminophen 7.5 mg-325 1 tab PO Q6H PRN pain #90 tabs 01/18/24 mg tablet (Percocet) fentanyl 37.5 mcg/hour transdermal 1 patch transdermal Q72H #10 ea 01/26/24 patch Results & Data (ED) Vital Signs Vital Signs - 24 hr 01/31/24 22:35 01/31/24 22:38 01/31/24 22:48 Temperature 36.9 C Temperature Source Temporal Artery Scan Pulse Rate 99 H 95 H Pulse Rate from SpO2 Sensor Pulse Rhythm Regular Pulse Strength Normal Respiratory Rate 23 24 Respiratory Effort / Characteristics Non-Labored Spontaneous Respiratory Depth Normal Respiratory Pattern Regular Blood Pressure 123/77 Blood Pressure Mean 92 Blood Pressure Position Sitting Pulse Oximetry 88 L 94 Oxygen Delivery Method Room Air Nasal Cannula Room Air Oxygen Flow Rate 0 Sepsis Recent Fever Within 48 Hours No Sepsis New/Unexplained Change in Mental Status N/A Sepsis Action Taken by Nursing No Action Required Oxygen Flow Rate - Titration 2 Pulse Oximetry Post Tiitration 95 01/31/24 22:50 01/31/24 22:52 01/31/24 23:00 Temperature Temperature Source Pulse Rate 93 H 88 Pulse Rate from SpO2 Sensor 93 H Pulse Rhythm Pulse Strength Respiratory Rate 21 Respiratory Effort / Characteristics Respiratory Depth Respiratory Pattern Blood Pressure 107/73 Blood Pressure Mean 83 Blood Pressure Position Pulse Oximetry 89 L Oxygen Delivery Method Oxygen Flow Rate Sepsis Recent Fever Within 48 Hours Sepsis New/Unexplained Change in Mental Status Sepsis Action Taken by Nursing Oxygen Flow Rate - Titration Pulse Oximetry Post Tiitration 01/31/24 23:00 01/31/24 23:10 01/31/24 23:20 Temperature Temperature Source Pulse Rate 85 88 89 Pulse Rate from SpO2 Sensor 87 90 Pulse Rhythm Pulse Strength Respiratory Rate 19 20 23 Respiratory Effort / Characteristics Respiratory Depth Respiratory Pattern Blood Pressure Blood Pressure Mean Blood Pressure Position Pulse Oximetry 95 94 Oxygen Delivery Method Nasal Cannula Oxygen Flow Rate 2 Sepsis Recent Fever Within 48 Hours Sepsis New/Unexplained Change in Mental Status Sepsis Action Taken by Nursing Oxygen Flow Rate - Titration Pulse Oximetry Post Tiitration 01/31/24 23:30 01/31/24 23:40 01/31/24 23:50 Temperature Temperature Source Pulse Rate 90 84 90 Pulse Rate from SpO2 Sensor 90 85 90 Pulse Rhythm Pulse Strength Respiratory Rate 22 21 18 Respiratory Effort / Characteristics Respiratory Depth Respiratory Pattern Blood Pressure Blood Pressure Mean Blood Pressure Position Pulse Oximetry 95 95 95 Oxygen Delivery Method Oxygen Flow Rate Sepsis Recent Fever Within 48 Hours Sepsis New/Unexplained Change in Mental Status Sepsis Action Taken by Nursing Oxygen Flow Rate - Titration Pulse Oximetry Post Tiitration 02/01/24 00:00 02/01/24 00:10 02/01/24 00:22 Temperature Temperature Source Pulse Rate 93 H 93 H Pulse Rate from SpO2 Sensor 93 H 94 H Pulse Rhythm Pulse Strength Respiratory Rate 24 19 Respiratory Effort / Characteristics Non-Labored Respiratory Depth Normal Respiratory Pattern Blood Pressure Blood Pressure Mean Blood Pressure Position Pulse Oximetry 95 93 Oxygen Delivery Method Nasal Cannula Oxygen Flow Rate Sepsis Recent Fever Within 48 Hours Sepsis New/Unexplained Change in Mental Status Sepsis Action Taken by Nursing Oxygen Flow Rate - Titration Pulse Oximetry Post Tiitration Laboratory Data 01/31/24 23:09 01/31/24 23:09 Lab Results 01/31/24 01/31/24 Range/Units 23:00 23:09 WBC 5.61 (4.8-10.8) K/ul RBC 3.34 L (4.20-5.40) M/uL Hgb 8.1 L (12.0-16.0) g/dl Hct 28.4 L (37.0-47.0) % MCV 85.0 (80.0-100.0) fL MCH 24.3 L (25.0-34.0) pg MCHC 28.5 L (32.0-36.0) g/dL RDW Std Deviation 73.8 H (36.4-46.3) fL RDW Coeff of Inge 25.6 H (11.5-14.5) % Plt Count 361 (130-400) K/uL MPV 10.4 (9.4-12.4) fL Immature Gran % (Auto) 0.4 % Neut % (Auto) 75.4 % Lymph % (Auto) 14.1 % Ross % (Auto) 7.3 % Eos % (Auto) 1.6 % Baso % (Auto) 1.2 % Neut # (Auto) 4.23 (1.40-6.50) K/uL Lymph # (Auto) 0.79 L (1.20-3.40) K/uL Ross # (Auto) 0.41 (0.11-0.59) K/uL Eos # (Auto) 0.09 (0.00-0.50) K/uL Baso # (Auto) 0.07 (0.00-0.20) K/uL Immature Gran # (Auto) 0.02 (0.01-0.20) K/uL Polychromasia 2+ Hypochromasia Present Anisocytosis Present Tear Drop Cells 1+ Ovalocytes 1+ Rouleaux 1+ PT 11.5 (9.0-12.0) Seconds INR 1.1 (0.9-1.1) Sodium 141 (136-145) mmol/L Potassium 3.9 (3.5-5.1) mmol/L Chloride 107 (98-107) mmol/L Carbon Dioxide 26 (21-32) mmol/L Anion Gap 8 (3-11) BUN 24 H (6-23) mg/dl Creatinine 0.96 (0.6-1.2) mg/dl Est Cr Clr Drug Dosing 51.4 ml/min Est GFR ( Amer) 66.1 ml/min Est GFR (Non-Af Amer) 57.0 ml/min BUN/Creatinine Ratio 25.0 H (10-20) Glucose 106 H (70-99(Fasting)) mg/dl Calcium 8.9 (8.6-10.3) mg/dl Magnesium 2.1 (1.7-2.4) mg/dl Total Bilirubin 0.3 (0.2-1.0) mg/dl AST 17 (13-39) U/L ALT 11 (7-52) U/L Alkaline Phosphatase 66 (34-104) U/L Troponin I High Sens 58.5 H* (0-14) pg/ml Total Protein 6.6 (6.0-8.3) gm/dl Albumin 4.1 (3.4-5.0) gm/dl Globulin 2.5 (2.5-4.0) gm/dl Albumin/Globulin Ratio 1.6 (0.9-2) TSH 5.183 H (0.300-4.500) uIu/ml Free T4 1.49 (0.61-1.60) ng/dl Adenovirus (PCR) Not Detected (NotDetected) B. pertussis DNA (PCR) Not Detected (NotDetected) B.parapertussis DNA PCR Not Detected (NotDetected) C. pneumoniae DNA (PCR) Not Detected (NotDetected) Coronavirus OC43 (PCR) Not Detected (NotDetected) Coronavirus HKU1 (PCR) Not Detected (NotDetected) Coronavirus 229E (PCR) Not Detected (NotDetected) SARS-CoV-2 (PCR) Not Detected (NotDetected) Coronavirus NL63 (PCR) Not Detected (NotDetected) Human Metapneumovir PCR Not Detected (NotDetected) Influenza Type A (PCR) Not Detected (NotDetected) Influenza Type B (PCR) Not Detected (NotDetected) M. pneumoniae (PCR) Not Detected (NotDetected) Parainfluenza 1 (PCR) Not Detected (NotDetected) Parainfluenza 2 (PCR) Not Detected (NotDetected) Parainfluenza 3 (PCR) Not Detected (NotDetected) Parainfluenza 4 (PCR) Not Detected (NotDetected) RSV (PCR) Not Detected (NotDetected) Entero/Rhino (PCR) Not Detected (NotDetected) Administered Medications Sodium Chloride (Nss) 1,000 mls @ 125 mls/hr IV .Q8H BABITA Stop: 03/01/24 23:14 Last Admin: 01/31/24 23:39 Dose: 125 mls/hr Documented By: TOÑA Discharge Plan Visit Data Chief Complaint: Shortness of Breath/Dyspnea Stated Complaint: SOB ED Provider: Jennifer Candelaria Discharge Problem: Dyspnea, Anemia, Chest pain, Aortic stenosis, Elevated troponin, Hypoxia Forms Stand Alone Forms: [facility] Prescriptions Prescriptions: No Action cholecalciferol (vitamin D3) 2,000 unit capsule 2,000 units PO QAM krill oil 500 mg capsule 500 mg PO QAM naloxone [Narcan] 4 mg/actuation spray,non-aerosol 4 mg INTRANASAL DIRECTED PRN (Reason: overdose) Qty: 2 0RF mirtazapine [Remeron] 15 mg tablet 15 mg PO HS Qty: 90 0RF duloxetine [Cymbalta] 60 mg capsule,delayed release(DR/EC) 120 mg PO QAM Qty: 180 0RF gabapentin 300 mg capsule 600 mg PO .COMPLEX Qty: 450 1RF Rx Instructions: 600 mg orally 2 PO qAM, 1 PO midday, 2 PO qhs; oxycodone-acetaminophen [Percocet] 7.5-325 mg tablet 1 tab PO Q6H PRN (Reason: pain) Qty: 90 0RF Rx Instructions: ONGOING THERAPY fentanyl 37.5 mcg/hour patch 72 hour 1 patch transdermal Q72H Qty: 10 0RF Rx Instructions: ONGOING THERAPY Jorge Luis 128 2 % drops 1 drp ophthalmic (eye) HS lansoprazole [Prevacid] 30 mg capsule,delayed release(DR/EC) 30 mg PO QAM Qty: 90 3RF aspirin [Adult Low Dose Aspirin] 81 mg tablet,delayed release (DR/EC) 81 mg PO Q2D ferrous sulfate [iron] 325 mg (65 mg iron) tablet 650 mg PO BID multivitamin Tablet 1 tab PO BID melatonin 3 mg tablet 3 mg PO HS vitamin B complex Tablet 1 tab PO QAM ascorbic acid (vitamin C) [Vitamin C] 500 mg tablet 1,000 mg PO BID nicotine (polacrilex) [Nicorette] 4 mg Gum 4 mg BUCCAL Q4H PRN (Reason: Nicotine Dependence) Benefiber (guar gum) Packet 1 tbsp PO QAM Rx Instructions: mix into at least 4 oz water or juice before administering methenamine hippurate [Hiprex] 1 gram tablet 1 g PO .DAILY AT 1630 Rx Instructions: take 1 tablet by mouth daily AT 4:30PM Referrals Referrals: Deborah Dong DO [Primary Care Provider] -
[2024-01-31 23:47] LABS: Albumin Globulin Ratio 1.6 (0.9-2); Albumin Level 4.1 gm/dl (3.4-5.0); Bilirubin,Total 0.3 mg/dl (0.2-1.0); Calcium 8.9 mg/dl (8.6-10.3); Creatinine Clr Calc Pharmacy 51.4 ml/min; Est GFR (African American) 66.1 ml/min; Globulin 2.5 gm/dl (2.5-4.0); Magnesium 2.1 mg/dl (1.7-2.4); Potassium 3.9 mmol/L (3.5-5.1); Total Protein 6.6 gm/dl (6.0-8.3)
[2024-01-31 23:58] LABS: INR 1.1 (0.9-1.1); Prothrombin Time 11.5 Seconds (9.0-12.0)
[2024-02-01 00:03] LABS: Thyroid Stimulating Hormone 5.183 uIu/ml (0.300-4.500)
[2024-02-01 00:13] LABS: Adenovirus PCR Not Detected (NotDetected); Bordetella parapertussis PCR Not Detected (NotDetected); Bordetella pertussis PCR Not Detected (NotDetected); Chlamydia pneumoniae PCR Not Detected (NotDetected); Coronavirus 229E PCR Not Detected (NotDetected); Coronavirus CoV-2 (COVID19)PCR Not Detected (NotDetected); Coronavirus HKU1 PCR Not Detected (NotDetected); Coronavirus NL63 PCR Not Detected (NotDetected); Coronavirus OC43PCR Not Detected (NotDetected); Human Metapneumovirus PCR Not Detected (NotDetected); Influenza A PCR Not Detected (NotDetected); Influenza B PCR Not Detected (NotDetected); Mycoplasma pneumoniae PCR Not Detected (NotDetected); Parainfluenza Virus 1 PCR Not Detected (NotDetected); Parainfluenza Virus 2 PCR Not Detected (NotDetected); Parainfluenza Virus 3 PCR Not Detected (NotDetected); Parainfluenza Virus 4 PCR Not Detected (NotDetected); Respiratory Syncytial VirusPCR Not Detected (NotDetected); Rhinovirus/Enterovirus PCR Not Detected (NotDetected)
[2024-02-01 00:15] LABS: Troponin I High Sensitivity 58.5 pg/ml (0-14)
[2024-02-01 00:39] LABS: T4 Free Thyroxine 1.49 ng/dl (0.61-1.60)
[2024-02-01 00:44] LABS: Anisocytosis Present; Basophils # (auto) 0.07 K/uL (0.00-0.20); Basophils % (auto) 1.2 %; Eosinophils # (auto) 0.09 K/uL (0.00-0.50); Eosinophils % (auto) 1.6 %; Hematocrit (blood only) 28.4 % (37.0-47.0); Hemoglobin 8.1 g/dl (12.0-16.0); Hypochromasia Present; Immature Granulocytes # (auto) 0.02 K/uL (0.01-0.20); Immature Granulocytes % (auto) 0.4 %; Lymphocytes # (auto) 0.79 K/uL (1.20-3.40); Lymphocytes % (auto) 14.1 %; Mean Corpuscular Hemoglobin 24.3 pg (25.0-34.0); Mean Corpuscular Hgb Conc 28.5 g/dL (32.0-36.0); Mean Platelet Volume 10.4 fL (9.4-12.4); Monocytes # (auto) 0.41 K/uL (0.11-0.59); Monocytes % (auto) 7.3 %; Neutrophils # (auto) 4.23 K/uL (1.40-6.50); Neutrophils % (auto) 75.4 %; Ovalocytes 1+; Platelet Count 361 K/uL (130-400); Polychromasia 2+; RDW Coefficient of Variation 25.6 % (11.5-14.5); RDW Standard Deviation 73.8 fL (36.4-46.3); Red Blood Count 3.34 M/uL (4.20-5.40); Rouleaux 1+; Tear Drop Cells 1+; White Blood Count 5.61 K/ul (4.8-10.8)
--- NOTE | 2024-02-01 01:01 | History & Physical Report ---
Date of Service February 01, 2024 Assessment & Plan (1) Severe aortic stenosis: Plan: Summary: Evelyn is a 78F w/ PMH of severe , chronic anemia, carotid stenosis, peripheral neuropathy, pleural effusion, COPD, anxiety, arthritis, GERD, depression, HLD, HTN, chronic pain syndrome who presents for evaluation of worsening dyspnea. ED Course: 1L NSS Worsening Dyspnea w/ Exertion, now present at rest - Likely multifactorial, as described below - A/w left sided chest tightness (which has improved since iron supplementation outpt) - Troponin elevated, likely a/w demand ischemia from chronic anemia and severe , trend to peak Acute on Chronic Anemia * Patient with baseline of 10, now noted outpatient at 7.2 and inpatient at 8.1 presentation * S/p outpatient PO iron supplementation and iron transfusions, continue PO supplement * Eval for potential sources of bleeding: STAT CT Chest & CT Abdomen/Pelvis * Hold Aspirin 81 mg and chemical DVT ppx, SCDs ordered * STAT H&H and Type & Screen ordered, recheck improved to 8.3, maintain low transfusion threshold * Patient currently hemodynamically stable * Hem/Onc consulted, appreciate recommendations Severe Aortic Stenosis * Chronic, progressing * Increasing LE edema and worsening dyspnea potentially a/w progression of * Recent Echo with EF 55-60% w/ LVH * [place] [facility] [place] Cardiology consulted, appreciate recommendations * Ongoing dyspnea, patient likely to benefit from diuresis, ordered Lasix 40 mg IV and Albumin 25g, follow strict I&Os Pleural Effusion * Last seen by Pulmonology 12/28, evaluation by [facility] IR did not recommend drainage at that time * Thought to be 2/2 Lymphoma, 3 previous accumulations were asymptomatic * CXR 01/30 indicates increasing volume of pleural effusion * Would consider consultation to IR for thoracentesis of symptoms continue to progress despite above measures Chronic Conditions: * Chronic Pain Syndrome: Continue home Percocet, Gabapentin, Duloxetine, and Fentanyl patch * Anxiety/Depression: Continue Mirtazapine * Insomnia: Continue melatonin * GERD: Continu Lansoprazole Code Status:Full Diet:Heart Healthy IVF:None DVT PPx:SCDs Dispo: PCU/tele (2) Anemia: (3) Dyspnea: (4) Exertional chest pain: (5) Pleural effusion: (6) COPD (chronic obstructive pulmonary disease): (7) Anxiety disorder, unspecified: (8) Gastroesophageal reflux disease: (9) Depression: (10) Chronic pain syndrome: (11) Hyperlipidemia: (12) Hypertension: (13) Follicular lymphoma: History of Present Illness Primary Care Provider: Donna DO Evelyn Dong is a 78F w/ PMH of severe , chronic anemia, carotid stenosis, peripheral neuropathy, pleural effusion, COPD, anxiety, arthritis, GERD, depression, HLD, HTN, chronic pain syndrome who presents for evaluation of worsening dyspnea. Patient notes that she has had dyspnea with exertion for months, but that over the last 2 weeks it has been getting worse. 2 weeks ago she started having cravings for ice, in the past, this has been her sign that her iron levels are low. Because of this, she started iron supplementation. She had seen Pulmonology in December, who had told her that her pleural effusion was not large enough for drainage, so she did not believe her current sx were pulmonary. She then contacted her [facility], who ordered outpatient labs. Her Hgb was found to be 7.2 and iron infusions were then ordered outpatient. Patient notes that she presented to the ED today because she started having chest discomfort and dyspnea at rest, which is a new symptom for her. She denies any recent cold symptoms, fevers or chills. She localizes her discomfort to her left chest and notes it resolves in 5-10 minutes of onset. She was having the same chest discomfort in the past with her MEEHAN, but notes that it had improved with iron supplementation. Patient denies any diarrhea or constipation. She has not experienced any melena or BRBPM. She has not started any additional medications. She continues to follow with Oncology for Follicular Lymphoma. Patient notes that she has been anemic most of her adult life, baseline Hgb 10. But that over the summer she had to stop her iron supplementation during chemotherapy and forgot to restart it. Allergies Allergy/AdvReac Type Severity Reaction Status Date / Time pollen extracts Allergy Intermediate ITCHY Verified 01/29/24 14:28 EYES, SNEEZING propolis (bee glue) Allergy Intermediate RASH FROM Verified 02/01/24 03:46 SURGICAL GLUE cellulose,oxidized Allergy Mild Rash Verified 01/29/24 14:28 [From Surgicel] latex Allergy Mild contact Verified 01/29/24 14:28 dermatitis nickel Allergy Mild contact Verified 01/29/24 14:28 dermatitis Sulfa (Sulfonamide Allergy Mild RASH Verified 01/29/24 14:28 Antibiotics) Home Medications Medication Instructions Recorded Confirmed Type cholecalciferol (vitamin D3) 50 2,000 units PO QAM 07/27/18 02/01/24 History mcg (2,000 unit) capsule multivitamin 1 tab PO BID 08/21/20 02/01/24 History vitamin B complex 1 tab PO QAM 09/27/20 02/01/24 History ascorbic acid (vitamin C) 500 mg 1,000 mg PO BID 12/28/20 02/01/24 History tablet (Vitamin C) nicotine (polacrilex) 4 mg gum 4 mg buccal Q4H PRN Nicotine 02/08/21 02/01/24 History (Nicorette) Dependence krill oil 500 mg capsule 500 mg PO QAM 06/13/21 02/01/24 History melatonin 3 mg tablet 3 mg PO HS 12/04/22 02/01/24 History aspirin 81 mg tablet,delayed 81 mg PO Q2D 12/23/22 02/01/24 History release (Adult Low Dose Aspirin) duloxetine 60 mg capsule,delayed 120 mg (2 x 60 mg) PO QAM #180 caps 03/16/23 02/01/24 Rx release (Cymbalta) mirtazapine 15 mg tablet (Remeron) 15 mg PO HS #90 tabs 03/16/23 02/01/24 Rx lansoprazole 30 mg capsule,delayed 30 mg PO QAM #90 caps 10/23/23 02/01/24 Rx release (Prevacid) sodium chloride 2 % eye drops 1 drp ophthalmic (eye) HS 10/23/23 02/01/24 History (Jorge Luis 128) naloxone 4 mg/actuation nasal 4 mg intranasal DIRECTED PRN 11/30/23 02/01/24 Rx spray (Narcan) overdose #2 ea gabapentin 300 mg capsule 600 mg (2 x 300 mg) PO .COMPLEX 01/08/24 02/01/24 Rx #450 caps oxycodone-acetaminophen 7.5 mg-325 1 tab PO Q6H PRN pain #90 tabs 01/18/24 02/01/24 Rx mg tablet (Percocet) fentanyl 37.5 mcg/hour transdermal 1 patch transdermal Q72H #10 ea 01/26/24 02/01/24 Rx patch ferrous sulfate 325 mg (65 mg 650 mg PO BID 01/26/24 02/01/24 History iron) tablet (iron) guar gum 1 tbsp PO QAM 02/01/24 02/01/24 History methenamine hippurate 1 gram 1 g PO .DAILY AT 1630 02/01/24 02/01/24 History tablet (Hiprex) Past Med/Surg History Medical History Peripheral neuropathy Contact allergic reaction Gastroparesis History of COVID-19 2019 > hospitalized at [facility] Hx of Clostridium difficile infection hx of 2 yrs ago and treated Pleural effusion moderate to large chronic pleural effusion, most recent imaging 01/09/[address] Recurrent UTI COPD (chronic obstructive pulmonary disease) Moderate to severe aortic stenosis MSSA (methicillin susceptible Staphylococcus aureus) infection (03/2021) Chronic left hip pain Chronic pain of lower extremity, bilateral Pneumonia due to 2018 novel coronavirus resolved UTI (urinary tract infection) chronic > preventative antibiotic on med list VRE infection (vancomycin resistant Enterococcus) hx of 2 yrs ago > resolved Leukocytosis NSTEMI (non-ST elevated myocardial infarction) pt unaware Moderate mitral regurgitation Mild aortic regurgitation Bacteremia due to Gram-negative bacteria Emphysema of lung Noted on chest CTs but not reported by patient. 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 no problems since. no thinners Anxiety Piriformis syndrome Peripheral edema to legs at present Lumbar canal stenosis Gastroesophageal reflux disease Depression Atherosclerosis of aorta follows with Dr. 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 and treating with Dr Moseley (oncology) Post laminectomy syndrome Surgical History Port-A-Cath in place (01/28/23) Insertion of Access Port right IJ with Fluoroscopy(Right) - Chavo Hubbard DO, FACS Previous back surgery none to cervical spine, x3 total History of colonoscopy History of laminectomy lumbar ~2013 Status post laminectomy with spinal fusion lumbar, 2007 & 2008 H/O cataract removal with insertion of prosthetic lens bilateral S/P hip replacement (2016) bilateral 2015, 2016 History of knee replacement procedure of right knee 2001 History of cholecystectomy 1977 Family History Father Abdominal aneurysm Colorectal cancer Grandmother (Paternal) Cancer Throat Other No family history of adverse response to anesthesia Denies family history of Ovarian cancer Prostate cancer Myocardial infarction Breast cancer Social History Smoking Status: Former smoker Tobacco Type: Cigarettes packs per day: 2; Second Hand Exposure: No; Do You Dip or Chew Tobacco: No; Hx Alcohol Use: No Hx Substance Use: No Preferred Language: Indonesian Communication Ability: Effective Visual Impairment: Limited Hearing Ability: Normal Corrugator Supervisor Required: No Beliefs That Will Affect Care: None marital status: / Current Living Situation: Alone current occupational status: retired How many Children do You have: 2 Feels Safe at Home: Yes Childhood Exposure to Second-Hand Smoke: Yes Diet: regular caffeine: Yes (drinks coffee daily ) during the past year weight has: decreased > 10 lbs Dental Care, Regularly: No Physical Activity Frequency: Does not Exercise Seatbelt Use: always Sunscreen Use: Yes Assistive Devices: None Physical Exam Physical Exam: Gen: NAD, alert, interactive HEENT: Supple, no LAD, no thyromegaly, no JVD, MMM Resp:Non-labored, scattered expiratory wheeze, diminished in RLL, otherwise CTAB CV:RRR, normal S1/S2, 5/6 systolic murmur Abd: Soft, non-distended, no TTP, normoactive bowels, no masses Extr: 2+ dp bilaterally, 1+ pitting LE edema Skin: No rashes lesions or erythema Results & Data Results & Data Vital Signs (Past 12 Hours) Vital Signs Temp Pulse Resp BP Pulse Ox O2 Del Method O2 Flow Rate 02/01/24 00:22 Nasal Cannula 02/01/24 00:10 93 H 19 93 02/01/24 00:00 93 H 24 95 01/31/24 23:50 90 18 95 01/31/24 23:40 84 21 95 01/31/24 23:30 90 22 95 01/31/24 23:20 89 23 94 01/31/24 23:10 88 20 95 Nasal Cannula 2 01/31/24 23:00 85 19 01/31/24 23:00 107/73 01/31/24 22:52 88 01/31/24 22:50 93 H 21 89 L 01/31/24 22:48 95 H 24 01/31/24 22:38 36.9 C 99 H 23 123/77 94 Room Air 01/31/24 22:35 88 L Room Air, Nasal Cannula 0 Supervising Physician Co-Signing Physician Notes Attending addendum: I have physically seen this patient, have supervised the medical residents activities, and agree with the H&P unless as otherwise noted. Assessment and Plan: Dyspnea on exertion- Contributing factors including but not limited to: Anemia, severe aortic stenosis, CHF, pleural effusion, pulmonary embolism, progression of generalized debilitation Anemia- Hemoglobin been reported 7.2 on 01/25, with improvement to 8.1 then 8.3 during assessment in the ED tonight Will follow serially No obvious signs of GI or urinary blood loss Order CT PE protocol to assess for PE, and CT abdomen and pelvis with contrast to assess for possible blood loss such as retroperitoneal hemorrhage CHF/right pleural effusion/severe aortic stenosis- The patient will be admitted to telemetry for serial cardiac enzymes, serial EKG's, cardiac rhythm monitoring Most recent echocardiogram on 07/21/2023 with ejection fraction 50-55% with severe aortic stenosis Patient continued to develop progressively worsening shortness of breath at rest in the ED Will give albumin 25 g IV followed by furosemide 40 mg IV and follow clinical response. Following preload closely Patient has been noted to be a possible TAVR candidate Consult cardiology Recurrent right pleural effusion- History of 3 previous episodes Depending upon response to albumin/furosemide this evening, should be considered for thoracentesis in the a.m. Holding aspirin and will not add anticoagulation Resident Activity Tracking Resident Involvement: Resident Care Provided Care Provided: Adult Hospital Medicine (night) (7) Anxiety disorder, unspecified Anxiety disorder type: generalized anxiety disorder Qualified Code(s): F41.1 - Generalized anxiety disorder (9) Depression Depression Type: unspecified Qualified Code(s): F32.9 - Major depressive disorder, single episode, unspecified (11) Hyperlipidemia Hyperlipidemia type: unspecified Qualified Code(s): E78.5 - Hyperlipidemia, unspecified (12) Hypertension Hypertension type: essential hypertension Qualified Code(s): I10 - Essential (primary) hypertension (13) Follicular lymphoma Follicular lymphoma type: unspecified follicular type Lymphoma site: unspecified region Qualified Code(s): C82.90 - Follicular lymphoma, u nspecified, unspecified site
[2024-02-01 02:44] LABS: Hemoglobin 8.3 g/dl (12.0-16.0)
[2024-02-01] MEDS ORDERED: NALOXONE NASAL SPRAY 4 MG ER HOMEPACK PRN (03:39)
[2024-02-01] MEDS: OPTIRAY 350 500ml IV ONE (04:12)
[2024-02-01] MEDS ORDERED: NALOXONE HCL 0.4 MG/1 ML VIAL/CARP IV PRN (04:14)
[2024-02-01] MEDS: ALBUMIN 25% 25 GM/100 ML VIAL IV ONE (04:15)
--- NOTE | 2024-02-01 04:40 | CT Scan Report ---
Exam(s): CTA CHEST IV Amt: 102 ml optiray 320 EXAM: CT Angiography Chest With Intravenous Contrast CLINICAL HISTORY: Reason for exam: PE/pleural effusions. TECHNIQUE: Axial computed tomographic angiography images of the chest with intravenous contrast. CTDI is 18.42 mGy and DLP is 594.88 mGy-cm. Automated exposure control was utilized for the study. A dose lowering technique was utilized adhering to the principles of ALARA. MIP reconstructed images were created and reviewed. COMPARISON: No relevant prior studies available. FINDINGS: Pulmonary arteries: Unremarkable. No pulmonary embolism. Aorta: No acute findings. No thoracic aortic aneurysm. Lungs: Mild patchy consolidations in the left upper lobe, concerning for pneumonia. Pleural space: Large bilateral pleural effusions. Subjacent consolidations, likely atelectasis. Pulmonary vascular congestion, consistent with congestive heart failure. No pneumothorax. Heart: Cardiomegaly. No significant pericardial effusion. No evidence of RV dysfunction. Bones/joints: No acute fracture. No dislocation. Soft tissues: Unremarkable. Lymph nodes: Unremarkable. No enlarged lymph nodes. Tubes, lines and devices: Right Port-A-Cath terminates in the SVC. IMPRESSION: 1. Large bilateral pleural effusions. Subjacent consolidations, likely atelectasis. Pulmonary vascular congestion, consistent with congestive heart failure. 2. Mild patchy consolidations in the left upper lobe, concerning for pneumonia. Electronically signed by: Nadir Bailey MD 02/01/24 04:39 AM
--- NOTE | 2024-02-01 04:41 | CT Scan Report ---
Exam(s): CT ABDOMEN + PELVIS With Contrast IV Amt: 102 ml optiray 320 EXAM: CT Abdomen and Pelvis With Intravenous Contrast CLINICAL HISTORY: Reason for exam: Eval for bleeding, dropping Hgb. TECHNIQUE: Axial computed tomography images of the abdomen and pelvis with intravenous contrast. CTDI is 19.69 mGy and DLP is 921.45 mGy-cm. Automated exposure control was utilized for the study. A dose lowering technique was utilized adhering to the principles of ALARA. CONTRAST: Patient received 102 ml optiray 320 of IV contrast COMPARISON: No relevant prior studies available. FINDINGS: ABDOMEN: Liver: Unremarkable. No mass. Gallbladder and bile ducts: Unremarkable. No calcified stones. No ductal dilation. Pancreas: Unremarkable. No mass. No ductal dilation. Spleen: Unremarkable. No splenomegaly. Adrenals: Unremarkable. No mass. Kidneys and ureters: Large left parapelvic cyst measuring approximately 5.6 cm. Stomach and bowel: Diverticulosis, without acute diverticulitis. No small bowel obstruction. No free intraperitoneal air. PELVIS: Appendix: Normal appendix. Bladder: Unremarkable. No mass. Reproductive: Unremarkable as visualized. ABDOMEN and PELVIS: Intraperitoneal space: Unremarkable. No free air. No significant fluid collection. Bones/joints: Bilateral total hip arthroplasties. Degenerative changes of the spine. No acute fracture. No dislocation. Multilevel posterior lumbar fusion hardware at L3-L5. Soft tissues: Unremarkable. Vasculature: Atherosclerotic changes of the aorta. No abdominal aortic aneurysm. Lymph nodes: Unremarkable. No enlarged lymph nodes. IMPRESSION: No acute findings in the abdomen or pelvis. Electronically signed by: Nadir Bailey MD 02/01/24 04:40 AM
--- NOTE | 2024-02-01 04:46 | Billing Data ---
Date of Service February 01, 2024 Coding Level of Care Code 11013 INT INP/OBS CARE
[2024-02-01] MEDS: FUROSEMIDE 40 MG/4 ML VIAL IV ONE (05:28)
--- NOTE | 2024-02-01 07:25 | Hospitalist Progress Note ---
Date of Service February 01, 2024 Assessment & Plan (1) Severe aortic stenosis: Plan: * (2) Anemia: (3) Dyspnea: (4) Exertional chest pain: (5) Pleural effusion: (6) COPD (chronic obstructive pulmonary disease): (7) Anxiety disorder, unspecified: (8) Gastroesophageal reflux disease: (9) Depression: (10) Chronic pain syndrome: (11) Hyperlipidemia: (12) Hypertension: (13) Follicular lymphoma: Plan Summary: Evelyn is a 78F w/ PMH of severe , chronic anemia, carotid stenosis, peripheral neuropathy, pleural effusion, COPD, anxiety, arthritis, GERD, depression, HLD, HTN, chronic pain syndrome, follicular lymphoma who presented for evaluation of worsening dyspnea. ED Course: 1L NSS Worsening Dyspnea w/ Exertion, now present at rest - Likely multifactorial, as described below - left sided chest tightness (which has improved since iron supplementation as outpt) - Troponin elevated, likely due to demand ischemia from chronic anemia and severe , trend to peak Acute on Chronic Anemia * Patient with baseline of 10, now noted outpatient at 7.2 and inpatient at 8.1 presentation * S/p outpatient PO iron supplementation and iron transfusions, continue PO supplement * Eval for potential sources of bleeding: STAT CT Chest & CT Abdomen/Pelvis * Hold Aspirin 81 mg and chemical DVT ppx, SCDs ordered * STAT H&H and Type & Screen ordered, recheck improved to 8.3, maintain low transfusion threshold * Patient currently hemodynamically stable * Hem/Onc consulted --> recommendations: 1) giving 1 dose of Venofer, 300 mg and 1 U PRBCs, 2) possible F/U as outpt if anemia doesn't improve to have bone marrow Bx to evaluate for follicular lymphoma Severe Aortic Stenosis * Chronic, progressing * Increasing LE edema and worsening dyspnea potentially 2/2 progression of * Recent Echo with EF 55-60% w/ LVH * Previous consideration for [place] at [facility] [place] [facility] [place] * Cardiology consulted, appreciate recommendations * Ongoing dyspnea, patient likely to benefit from diuresis, ordered Lasix 40 mg and 20 mg (once each) IV and Albumin 25g, follow strict I&Os Pleural Effusion * Last seen by Pulmonology 12/28, evaluation by [facility] IR did not recommend drainage at that time * Thought to be 2/2 Lymphoma, 3 previous accumulations were asymptomatic * CXR 01/30 indicates increasing volume of pleural effusion * Would consider consultation to IR for thoracentesis of symptoms continue to progress despite above measures Pneumonia * Patchy consolidations in l. upper lobe, concerning for pneumonia * Consider continuing azithromycin and cefepime for pneumonia Chronic Conditions: * Chronic Pain Syndrome: Continue home Percocet, Gabapentin, Duloxetine, and Fentanyl patch * Anxiety/Depression: Continue Mirtazapine * Insomnia: Continue melatonin * GERD: Continue Lansoprazole * Previous C-Diff Infection: Continue methenamine hippurate, start vancomycin, PO, 125 mg, Q6h Code Status:Full Diet:Heart Healthy IVF:None DVT PPx:SCDs Dispo: PCU/tele Admission and Anticipated Discharge Date Admission Date: February 01, 2024 Supervising Physician Co-Signing Physician Notes I personally examined the patient and verified all deshpande points of history and exam, discussed case, and agree with decision making with Dr Amaya Feeling better, although still needing oxygen. Has not really gotten up and around much yet, but notes that at least dyspnea on rest is better. Vitals noted, in general she is awake and alert pleasant no distress. HEENT normocephalic atraumatic mucous membranes moist. Lungs show faint mid and lower lung rales and then diminished at the bases. No accessory muscle use. Dyspnea/hypoxiaappears acutely to be due to acute on chronic diastolic CHFwhich in turn appears to be due to to a combination of severe aortic stenosis and high-output failure from her iron deficiency anemiaoverall improving. Try to diurese further. Initially was considering trying to diurese and seeing if we could get her breathing back to baseline before considering thoracentesis, but oncology does believe that diagnostic thoracentesis may exchange teller if effusion is lymphomatous versus purely CHFin that respect we will ask pulmonary to see her as well. With no infectious/constitutional signs or symptoms, no sputum production, normal procalcitonin, normal white counthighly doubt pneumoniahold antibiotics and follow closely. DVT proph - start pharmacologic proph post thoracentesis Subjective Patient has been feeling better with her dyspnea at rest since being admitted to the hospital. Review of Systems Constitutional: + fatigue; no fever, no chills and no we akness Eyes: no diplopia and no worsening vision Ear, Nose, Mouth, Throat: + nasal discharge; no nasal congestion a nd no sore throat Respiratory: + dyspnea on exertion; no cough, no ches t congestion and no dyspnea Cardiovascular: + dyspnea on exertion; no chest pain, no dyspnea at rest and no palpitations Gastrointestinal: + diarrhea/loose stools (due to Benefibe r pt takes to combat constipation from iron pills); no abdominal pain, no nausea, no vomiting and no constipation Genitourinary: no dysuria Neurologic: no localized weakness, no tingling and no numbness Physical Exam Constitutional: cooperative and comfortable Respiratory: normal respiratory effort, lungs clear to auscultation Cardiovascular: Rate/Rhythm: regular rate and regular rhythm Heart Sounds: + murmur Extremities: + pedal edema; no calf tenderness Gastrointestinal (Abdomen): normal bowel sounds, soft, nontender, no hepatosplenomegaly Psychiatric: A+Ox3, euthymic affect Results & Data Results & Data Vital Signs (Past 12 Hours) Vital Signs Temp Pulse Resp BP BP Pulse Ox O2 Del Method 02/01/24 04:31 88 02/01/24 03:46 Nasal Cannula 02/01/24 03:39 36.6 C 18 147/82 H 91 Nasal Cannula 02/01/24 03:30 90 21 134/89 97 Nasal Cannula 02/01/24 02:30 86 22 96 02/01/24 02:30 128/85 02/01/24 02:20 97 H 19 97 02/01/24 02:13 149/96 H 02/01/24 02:13 102 H 26 H 95 02/01/24 02:10 102 H 30 H 97 02/01/24 02:03 115 H 19 02/01/24 01:50 100 H 32 H 92 02/01/24 01:40 100 H 29 H 92 02/01/24 01:30 139/94 02/01/24 01:30 97 H 30 H 94 02/01/24 01:20 97 H 32 H 94 02/01/24 01:10 95 H 28 H 94 02/01/24 01:00 94 H 26 H 94 02/01/24 01:00 134/89 02/01/24 00:52 133/87 02/01/24 00:52 94 H 26 H 94 02/01/24 00:50 92 H 25 H 94 02/01/24 00:40 90 26 H 94 02/01/24 00:30 92 H 24 94 02/01/24 00:22 Nasal Cannula 02/01/24 00:20 95 H 20 94 02/01/24 00:10 93 H 19 93 02/01/24 00:00 93 H 24 95 01/31/24 23:50 90 18 95 01/31/24 23:40 84 21 95 01/31/24 23:30 90 22 95 01/31/24 23:20 89 23 94 01/31/24 23:10 88 20 95 Nasal Cannula 01/31/24 23:00 85 19 01/31/24 23:00 107/73 01/31/24 22:52 88 01/31/24 22:50 93 H 21 89 L 01/31/24 22:48 95 H 24 01/31/24 22:38 36.9 C 99 H 23 123/77 94 Room Air 01/31/24 22:35 88 L Room Air, Nasal Cannula O2 Flow Rate 02/01/24 04:31 02/01/24 03:46 4 02/01/24 03:39 4 02/01/24 03:30 4 02/01/24 02:30 02/01/24 02:30 02/01/24 02:20 02/01/24 02:13 02/01/24 02:13 02/01/24 02:10 02/01/24 02:03 02/01/24 01:50 02/01/24 01:40 02/01/24 01:30 02/01/24 01:30 02/01/24 01:20 02/01/24 01:10 02/01/24 01:00 02/01/24 01:00 02/01/24 00:52 02/01/24 00:52 02/01/24 00:50 02/01/24 00:40 02/01/24 00:30 02/01/24 00:22 02/01/24 00:20 02/01/24 00:10 02/01/24 00:00 01/31/24 23:50 01/31/24 23:40 01/31/24 23:30 01/31/24 23:20 01/31/24 23:10 2 01/31/24 23:00 01/31/24 23:00 01/31/24 22:52 01/31/24 22:50 01/31/24 22:48 01/31/24 22:38 01/31/24 22:35 0 (7) Anxiety disorder, unspecified Anxiety disorder type: generalized anxiety disorder Qualified Code(s): F41.1 - Generalized anxiety disorder (9) Depression Depression Type: unspecified Qualified Code(s): F32.9 - Major depressive disorder, single episode, unspecified (11) Hyperlipidemia Hyperlipidemia type: unspecified Qualified Code(s): E78.5 - Hyperlipidemia, unspecified (12) Hypertension Hypertension type: essential hypertension Qualified Code(s): I10 - Essential (primary) hypertension (13) Follicular lymphoma Follicular lymphoma type: unspecified follicular type Lymphoma site: unspecified region Qualified Code(s): C82.90 - Follicular lymphoma, unspecified, unspecified site
--- NOTE | 2024-02-01 07:53 | XRay Report ---
XR chest 1V portable CLINICAL HISTORY: sob TECHNIQUE: Single frontal radiograph of the chest was obtained. Comparison: Comparison is made to chest radiograph 12/22/2023 FINDINGS: A port catheter is seen. Calcified aortic knob is seen. There is prominence and cephalization of the vasculature with Claudia B lines seen. Moderate right pleural effusion is seen with underlying atelect asis. IMPRESSION: 1. Cardiomegaly and moderate pulmonary edema. 2. Moderate right pleural effusion with underlying atelectasis. ACT 112: Negative or not required by law. Electronically signed by: Beck Newton M.D. 02/01/2024 7:52 AM
[2024-02-01] MEDS: CEFEPIME 2,000 MG in SYRINGE 0 ML IV SCH (07:59)
[2024-02-01] MEDS: AZITHROMYCIN 500 MG in DEXTROSE 5% 250 ML IV SCH (07:59)
[2024-02-01] MEDS: fentaNYL 25 MCG/HR TDSY TD SCH (09:27)
[2024-02-01] MEDS: fentaNYL 12 MCG/HR TDSY TD SCH (09:27)
[2024-02-01] MEDS: [UNRECOGNIZED DRUG - REMARK] SCH (09:28)
[2024-02-01] MEDS: CHECK fentaNYL PATCH PLACEMENT SCH (09:28)
[2024-02-01] MEDS: PANTOprazole 40 MG TAB PO SCH (09:28)
[2024-02-01] MEDS: FERROUS SULFATE 325 MG TAB PO SCH (09:28)
[2024-02-01] MEDS: DULoxetine HCL 60 MG CAP PO SCH (09:28)
[2024-02-01] MEDS: GABAPENTIN 300 MG CAP PO SCH ×3 (09:28→20:30)
[2024-02-01] MEDS: oxyCODONE/APAP 7.5/325MG TAB PO PRN (09:48)
[2024-02-01] MEDS: [UNRECOGNIZED DRUG - REMARK] SCH (10:01)
[2024-02-01] MEDS: [UNRECOGNIZED DRUG - REMARK] STA (10:01)
[2024-02-01] MEDS: [UNRECOGNIZED DRUG - REMARK] SCH (10:01)
[2024-02-01 12:05] LABS: Folate (Folic Acid),Ser orPlas > 22.30 ng/ml (>5.38); Vitamin B12 > 1500 pg/ml (180-914)
--- NOTE | 2024-02-01 12:26 | Cardiology Consultation ---
Date of Consultation February 01, 2024 Assessment & Plan (1) Severe aortic stenosis: -noted on echocardiogram July 2023. -would correct anemia prior to determining whether valvular disease is symptomatic. -no need for repeat echocardiogram currently. (2) Elevated troponin: -likely a supply demand mismatch. -no evidence of an acute coronary syndrome. (3) Dyspnea: -multifactorial related to severe anemia, pleural effusions, pulmonary edema, pneumonia, and severe aortic stenosis. -agree with current management plan. (4) Anemia: -agree with Hematology consultation. History of Present Illness Attending Physician: Miah Pardo DO History of Present Illness Mrs. Henry is a 78-year-old female admitted earlier today with dyspnea, a profound anemia, and severe aortic stenosis. This consultation was ordered to assist in her cardiac management. Of note, the patient is typically followed by Dr. Connor in the outpatient setting. The patient was in her usual state of health until several months ago when she began to note exertional dyspnea. This has become quite significant over the last 3-4 weeks and is also accompanied by exertional chest discomfort. She was seen by Dr. Connor on January 25 complaining exertional angina pectoris. There was a discussion regarding a possible TAVR, however, some of her symptoms suggested a recurrent anemia. A CBC was drawn, and unfortunately, this showed a hemoglobin of 7.2. She was referred to her PCP and head start coordinator. However, on the day of presentation, the patient was experiencing shortness of breath at rest. She did not experience chest discomfort. She became quite concerned and presented to the emergency room for further care. Past medical and surgical history 1. Hypertension 2. Hypercholesterolemia 3. Severe aortic stenosis 4. COPD 5. GERD 6. Chronic right chylous pleural effusion 7. Follicular lymphoma-negative PET, September 2023 8. Peripheral neuropathy 9. Spinal stenosis 10. History of DVT 11. Degenerative disc disease 12. Anxiety/depression 13. Chronic pain syndrome 14. A port 15. Laminectomy/spinal fusion 16. TKR 17. THR 18. Bilateral intra-ocular lens implants 19. Cholecystectomy Social history , lives alone Hails from [place], [place] Former smoker No alcohol Family history Noncontributory Review of systems A 10 point review of systems was undertaken and negative except that described above. Allergies Allergy/AdvReac Type Severity Reaction Status Date / Time pollen extracts Allergy Intermediate ITCHY Verified 01/29/24 14:28 EYES, SNEEZING propolis (bee glue) Allergy Intermediate RASH FROM Verified 02/01/24 03:46 SURGICAL GLUE cellulose,oxidized Allergy Mild Rash Verified 01/29/24 14:28 [From Surgicel] latex Allergy Mild contact Verified 01/29/24 14:28 dermatitis nickel Allergy Mild contact Verified 01/29/24 14:28 dermatitis Sulfa (Sulfonamide Allergy Mild RASH Verified 01/29/24 14:28 Antibiotics) Home Medications Medication Instructions Recorded Confirmed Type cholecalciferol (vitamin D3) 50 2,000 units PO QAM 07/27/18 02/01/24 History mcg (2,000 unit) capsule multivitamin 1 tab PO BID 08/21/20 02/01/24 History vitamin B complex 1 tab PO QAM 09/27/20 02/01/24 History ascorbic acid (vitamin C) 500 mg 1,000 mg PO BID 12/28/20 02/01/24 History tablet (Vitamin C) nicotine (polacrilex) 4 mg gum 4 mg buccal Q4H PRN Nicotine 02/08/21 02/01/24 History (Nicorette) Dependence krill oil 500 mg capsule 500 mg PO QAM 06/13/21 02/01/24 History melatonin 3 mg tablet 3 mg PO HS 12/04/22 02/01/24 History aspirin 81 mg tablet,delayed 81 mg PO Q2D 12/23/22 02/01/24 History release (Adult Low Dose Aspirin) duloxetine 60 mg capsule,delayed 120 mg (2 x 60 mg) PO QAM #180 caps 03/16/23 02/01/24 Rx release (Cymbalta) mirtazapine 15 mg tablet (Remeron) 15 mg PO HS #90 tabs 03/16/23 02/01/24 Rx lansoprazole 30 mg capsule,delayed 30 mg PO QAM #90 caps 10/23/23 02/01/24 Rx release (Prevacid) sodium chloride 2 % eye drops 1 drp ophthalmic (eye) HS 10/23/23 02/01/24 History (Jorge Luis 128) naloxone 4 mg/actuation nasal 4 mg intranasal DIRECTED PRN 11/30/23 02/01/24 Rx spray (Narcan) overdose #2 ea gabapentin 300 mg capsule 600 mg (2 x 300 mg) PO .COMPLEX 01/08/24 02/01/24 Rx #450 caps oxycodone-acetaminophen 7.5 mg-325 1 tab PO Q6H PRN pain #90 tabs 01/18/24 02/01/24 Rx mg tablet (Percocet) fentanyl 37.5 mcg/hour transdermal 1 patch transdermal Q72H #10 ea 01/26/24 02/01/24 Rx patch ferrous sulfate 325 mg (65 mg 650 mg PO BID 01/26/24 02/01/24 History iron) tablet (iron) guar gum 1 tbsp PO QAM 02/01/24 02/01/24 History methenamine hippurate 1 gram 1 g PO .DAILY AT 1630 02/01/24 02/01/24 History tablet (Hiprex) Patient History Medical History Peripheral neuropathy Contact allergic reaction Gastroparesis History of COVID-19 2019 > hospitalized at [facility] Hx of Clostridium difficile infection hx of 2 yrs ago and treated Pleural effusion moderate to large chronic pleural effusion, most recent imaging 01/09/[address] Recurrent UTI COPD (chronic obstructive pulmonary disease) Moderate to severe aortic stenosis MSSA (methicillin susceptible Staphylococcus aureus) infection (03/2021) Chronic left hip pain Chronic pain of lower extremity, bilateral Pneumonia due to 2019 novel coronavirus resolved UTI (urinary tract infection) chronic > preventative antibiotic on med list VRE infection (vancomycin resistant Enterococcus) hx of 2 yrs ago > resolved Leukocytosis NSTEMI (non-ST elevated myocardial infarction) pt unaware Moderate mitral regurgitation Mild aortic regurgitation Bacteremia due to Gram-negative bacteria Emphysema of lung Noted on chest CTs but not reported by patient. 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 no problems since. no thinners Anxiety Piriformis syndrome Peripheral edema to legs at present Lumbar canal stenosis Gastroesophageal reflux disease Depression Atherosclerosis of aorta follows with Dr. 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 and treating with Dr Moseley (oncology) Post laminectomy syndrome Surgical History Port-A-Cath in place (01/28/23) Insertion of Access Port right IJ with Fluoroscopy(Right) - Chavo Hubbard DO, FACS Previous back surgery none to cervical spine, x3 total History of colonoscopy History of laminectomy lumbar ~2013 Status post laminectomy with spinal fusion lumbar, 2007 & 2008 H/O cataract removal with insertion of prosthetic lens bilateral S/P hip replacement (2016) bilateral 2015, 2016 History of knee replacement procedure of right knee 2002 History of cholecystectomy 1978 Family History Father Abdominal aneurysm Colorectal cancer Grandmother (Paternal) Cancer Throat Other No family history of adverse response to anesthesia Denies family history of Ovarian cancer Prostate cancer Myocardial infarction Breast cancer Social History Smoking Status: Former smoker Tobacco Type: Cigarettes packs per day: 2; Second Hand Exposure: No; Do You Dip or Chew Tobacco: No; Hx Alcohol Use: No Hx Substance Use: No Preferred Language: Occitan Communication Ability: Effective Visual Impairment: Limited Hearing Ability: Normal Sr. Operations Manager Required: No Beliefs That Will Affect Care: None marital status: / Current Living Situation: Family current occupational status: retired How many Children do You have: 2 Other Information That Helps Us Care for You: No Feels Safe at Home: Yes Safety Concerns: Feels Safe At This Time Childhood Exposure to Second-Hand Smoke: Yes Diet: regular caffeine: Yes (drinks coffee daily ) during the past year weight has: decreased > 10 lbs Dental Care, Regularly: No Physical Activity Frequency: Does not Exercise Seatbelt Use: always Sunscreen Use: Yes Assistive Devices: Walker Physical Exam Physical Exam: In general is a well-developed well-nourished white female in no acute distress. HEENT exam is negative. Neck is supple with delayed and prolonged carotid upstrokes. Transmitted murmurs noted bilaterally. Cardiovascular exam reveals a regular rhythm with 3/6 crescendo decrescendo systolic murmur heard loudest at the base. S2 is not audible at the apex. Lungs are clear without rales, rhonchi, or wheezes. Abdomen is soft without bruits. Extremities reveal intact radial artery pulses bilaterally. There is no peripheral edema. Results & Data Vital Signs (Past 12 Hours) Vital Signs Temp Pulse Pulse Resp BP BP Pulse Ox 02/01/24 11:29 98 02/01/24 11:29 02/01/24 08:24 92 H 02/01/24 08:09 36.8 C 100 H 19 109/66 95 02/01/24 04:31 88 02/01/24 03:46 02/01/24 03:39 36.6 C 18 147/82 H 91 02/01/24 03:30 90 21 134/89 97 02/01/24 02:30 86 22 96 02/01/24 02:30 128/85 02/01/24 02:20 97 H 19 97 02/01/24 02:13 149/96 H 02/01/24 02:13 102 H 26 H 95 02/01/24 02:10 102 H 30 H 97 02/01/24 02:03 115 H 19 02/01/24 01:50 100 H 32 H 92 02/01/24 01:40 100 H 29 H 92 02/01/24 01:30 139/94 02/01/24 01:30 97 H 30 H 94 02/01/24 01:20 97 H 32 H 94 02/01/24 01:10 95 H 28 H 94 02/01/24 01:00 94 H 26 H 94 02/01/24 01:00 134/89 02/01/24 00:52 133/87 02/01/24 00:52 94 H 26 H 94 02/01/24 00:50 92 H 25 H 94 02/01/24 00:40 90 26 H 94 02/01/24 00:30 92 H 24 94 02/01/24 00:22 02/01/24 00:20 95 H 20 94 O2 Del Method O2 Flow Rate 02/01/24 11:29 Nasal Cannula 4 02/01/24 11:29 Nasal Cannula 3 02/01/24 08:24 02/01/24 08:09 Nasal Cannula 4.0 02/01/24 04:31 02/01/24 03:46 Nasal Cannula 4 02/01/24 03:39 Nasal Cannula 4 02/01/24 03:30 Nasal Cannula 4 02/01/24 02:30 02/01/24 02:30 02/01/24 02:20 02/01/24 02:13 02/01/24 02:13 02/01/24 02:10 02/01/24 02:03 02/01/24 01:50 02/01/24 01:40 02/01/24 01:30 02/01/24 01:30 02/01/24 01:20 02/01/24 01:10 02/01/24 01:00 02/01/24 01:00 02/01/24 00:52 02/01/24 00:52 02/01/24 00:50 02/01/24 00:40 02/01/24 00:30 02/01/24 00:22 Nasal Cannula 02/01/24 00:20 Laboratory Results CBC notes hemoglobin of 8.3, hematocrit 28.0, white count 5.6, and platelet count [id number]. Electrolytes note a sodium of 141, potassium 3.9, chloride 107, bicarb 26, BUN 24, creatinine 0.96, and glucose of 106. High sensitivity troponin is 58.5 with a follow-up value of 119 Diagnostic Findings EKG notes sinus rhythm with nonspecific ST abnormality. Chest x-ray notes cardiomegaly, right-sided pleural effusion, interstitial pulmonary edema, and a port. CT scan the chest noted bilateral pleural effusions, pulmonic vascular congestion, and possible left upper lobe pneumonia. PG Care Time/CCT Total # of Minutes Spent Total Time Spent with Patient: Total time spent is greater than 50% in coordination of care (as documented) at patient's floor/unit and/or counseling patient: Coding Level of Care Code 30962 INT INP/OBS CARE 375MIN Diagnoses Severe aortic stenosis I35.0 Elevated troponin R79.89 Dyspnea R06.00 Anemia D64.9
--- NOTE | 2024-02-01 13:48 | Electrocardiogram Report ---
Test Reason : Blood Pressure : / mmHG Vent. Rate : 093 BPM Atrial Rate : 093 BPM P-R Int : 146 ms QRS Dur : 094 ms QT Int : 378 ms P-R-T Axes : 039 016 040 degrees QTc Int : 469 ms Normal sinus rhythm Nonspecific ST abnormality Abnormal ECG When compared with ECG of 19-JAN-2023 15:22, Nonspecific T wave abnormality now evident in Inferior leads Confirmed by Scott Aiken ([id number]) on 02/01/2024 1:47:56 PM Referred By: REFERRED SELF Confirmed By:Scott Aiken
[2024-02-01] MEDS: FUROSEMIDE INJ 20 MG/2 ML VIAL IV ONE (14:00)
--- NOTE | 2024-02-01 16:14 | Oncology Consultation ---
Date of Consultation February 01, 2024 Assessment & Plan (1) Anemia: (2) Severe aortic stenosis: (3) Iron deficiency anemia: (4) Follicular lymphoma: Plan - Shortness of breath likely multifactorial due to severe anemia, large bilateral pleural effusions. -Anemia likely due to iron deficiency given ferritin of below 30. She has severe aortic stenosis which has a very well-established relationship with angiodysplasia / GI bleeding and could be responsible for iron deficiency. Wou ld however recommend checking peripheral smear review for schistocytes, LDH and haptoglobin to rule out hemolysis in setting of aortic stenosis. - She s/p 1 dose of IV iron infusion administered outpatient last week. Recommend giving 1 dose of IV Venofer 300 mg. Although hemoglobin is above 7, also recommend transfusing with 1 unit PRBC since she remains symptomatic in the setting of severe aortic stenosis. If anemia does not improve with iron infusions, she would benefit from outpatient bone marrow biopsy to evaluate for bone marrow involvement by follicular lymphoma. -Recently obtained imaging did not show any recurrence of lymphadenopathy or new splenomegaly which is suggestive of continued at least partial response to treatment received last year. She has worsening bilateral pleural effusions which could be lymphomatous in origin but would be interested in cardiology's thoughts regarding whether bilateral pleural effusion could be partly due to to heart failure from severe aortic stenosis. Recommend pulmonology evaluation to see if she would benefit from thoracentesis. If thoracentesis is suggestive of lymphoma, she would need to consider restarting systemic therapy. Thank you for this consult. Hematology continue following patient while she is in the hospital. Please feel free to call if you have any further questions. History of Present Illness Reason for Consultation: Worsening anemia Attending Physician: Miah Pardo DO History of Present Illness Very pleasant 78-year-old female who presented to the ER at [facility] with shortness of breath. 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 After completing systemic therapy, restaging imaging revealed persistent right-sided pleural effusion for which she was followed by pulmonology at [facility] as well as more recently IR at [facility] for chylous effusion. She also has a history of severe aortic stenosis for which she is followed by cardiology. She presented last week to cardiology with worsening shortness of breath with labs revealing severe anemia with hemoglobin of 7.2 . She states that several weeks ago, she started having pica symptoms with ice craving similar to symptoms she had experienced several years ago when she was iron deficient. Labs obtained at that time suggestive of iron deficiency for which IV iron infusion was ordered by PCP. She states that she received a dose of IV iron last week and was scheduled for another dose tomorrow.CTA chest on 02/01/2024 revealed bilateral large pleural effusions, subadjacent consolidations likely atelectasis with pulmonary vascular congestion consistent with congestive heart failure. CT abdomen and pelvis on 02/01/2024 showed no acute findings with no lymphadenopathy or splenomegaly. Allergies Allergy/AdvReac Type Severity Reaction Status Date / Time pollen extracts Allergy Intermediate ITCHY Verified 01/29/24 14:28 EYES, SNEEZING propolis (bee glue) Allergy Intermediate RASH FROM Verified 02/01/24 03:46 SURGICAL GLUE cellulose,oxidized Allergy Mild Rash Verified 01/29/24 14:28 [From Surgicel] latex Allergy Mild contact Verified 01/29/24 14:28 dermatitis nickel Allergy Mild contact Verified 01/29/24 14:28 dermatitis Sulfa (Sulfonamide Allergy Mild RASH Verified 01/29/24 14:28 Antibiotics) Home Medications Medication Instructions Recorded Confirmed Type cholecalciferol (vitamin D3) 50 2,000 units PO QAM 07/27/18 02/01/24 History mcg (2,000 unit) capsule multivitamin 1 tab PO BID 08/21/20 02/01/24 History vitamin B complex 1 tab PO QAM 09/27/20 02/01/24 History ascorbic acid (vitamin C) 500 mg 1,000 mg PO BID 12/28/20 02/01/24 History tablet (Vitamin C) nicotine (polacrilex) 4 mg gum 4 mg buccal Q4H PRN Nicotine 02/08/21 02/01/24 History (Nicorette) Dependence krill oil 500 mg capsule 500 mg PO QAM 06/13/21 02/01/24 History melatonin 3 mg tablet 3 mg PO HS 12/04/22 02/01/24 History aspirin 81 mg tablet,delayed 81 mg PO Q2D 12/23/22 02/01/24 History release (Adult Low Dose Aspirin) duloxetine 60 mg capsule,delayed 120 mg (2 x 60 mg) PO QAM #180 caps 03/16/23 02/01/24 Rx release (Cymbalta) mirtazapine 15 mg tablet (Remeron) 15 mg PO HS #90 tabs 03/16/23 02/01/24 Rx lansoprazole 30 mg capsule,delayed 30 mg PO QAM #90 caps 10/23/23 02/01/24 Rx release (Prevacid) sodium chloride 2 % eye drops 1 drp ophthalmic (eye) HS 10/23/23 02/01/24 History (Jorge Luis 128) naloxone 4 mg/actuation nasal 4 mg intranasal DIRECTED PRN 11/30/23 02/01/24 Rx spray (Narcan) overdose #2 ea gabapentin 300 mg capsule 600 mg (2 x 300 mg) PO .COMPLEX 01/08/24 02/01/24 Rx #450 caps oxycodone-acetaminophen 7.5 mg-325 1 tab PO Q6H PRN pain #90 tabs 01/18/24 02/01/24 Rx mg tablet (Percocet) fentanyl 37.5 mcg/hour transdermal 1 patch transdermal Q72H #10 ea 01/26/24 02/01/24 Rx patch ferrous sulfate 325 mg (65 mg 650 mg PO BID 01/26/24 02/01/24 History iron) tablet (iron) guar gum 1 tbsp PO QAM 02/01/24 02/01/24 History methenamine hippurate 1 gram 1 g PO .DAILY AT 1630 02/01/24 02/01/24 History tablet (Hiprex) Patient History Medical History Peripheral neuropathy Contact allergic reaction Gastroparesis History of COVID-19 2019 > hospitalized at [facility] Hx of Clostridium difficile infection hx of 2 yrs ago and treated Pleural effusion moderate to large chronic pleural effusion, most recent imaging 01/09/[address] Recurrent UTI COPD (chronic obstructive pulmonary disease) Moderate to severe aortic stenosis MSSA (methicillin susceptible Staphylococcus aureus) infection (03/2021) Chronic left hip pain Chronic pain of lower extremity, bilateral Pneumonia due to 2019 novel coronavirus resolved UTI (urinary tract infection) chronic > preventative antibiotic on med list VRE infection (vancomycin resistant Enterococcus) hx of 2 yrs ago > resolved Leukocytosis NSTEMI (non-ST elevated myocardial infarction) pt unaware Moderate mitral regurgitation Mild aortic regurgitation Bacteremia due to Gram-negative bacteria Emphysema of lung Noted on chest CTs but not reported by patient. 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 no problems since. no thinners Anxiety Piriformis syndrome Peripheral edema to legs at present Lumbar canal stenosis Gastroesophageal reflux disease Depression Atherosclerosis of aorta follows with Dr. 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 and treating with Dr Moseley (oncology) Post laminectomy syndrome Surgical History Port-A-Cath in place (01/28/23) Insertion of Access Port right IJ with Fluoroscopy(Right) - Chavo Hubbard DO, FACS Previous back surgery none to cervical spine, x3 total History of colonoscopy History of laminectomy lumbar ~2013 Status post laminectomy with spinal fusion lumbar, 2007 & 2008 H/O cataract removal with insertion of prosthetic lens bilateral S/P hip replacement (2016) bilateral 2015, 2016 History of knee replacement procedure of right knee 2001 History of cholecystectomy 1977 Family History Father Abdominal aneurysm Colorectal cancer Grandmother (Paternal) Cancer Throat Other No family history of adverse response to anesthesia Denies family history of Ovarian cancer Prostate cancer Myocardial infarction Breast cancer Social History Smoking Status: Former smoker Tobacco Type: Cigarettes packs per day: 2; Second Hand Exposure: No; Do You Dip or Chew Tobacco: No; Hx Alcohol Use: No Hx Substance Use: No Preferred Language: Polish Communication Ability: Effective Visual Impairment: Limited Hearing Ability: Normal Blind Cleaner Required: No Beliefs That Will Affect Care: None marital status: / Current Living Situation: Family current occupational status: retired How many Children do You have: 2 Other Information That Helps Us Care for You: No Feels Safe at Home: Yes Safety Concerns: Feels Safe At This Time Childhood Exposure to Second-Hand Smoke: Yes Diet: regular caffeine: Yes (drinks coffee daily ) during the past year weight has: decreased > 10 lbs Dental Care, Regularly: No Physical Activity Frequency: Does not Exercise Seatbelt Use: always Sunscreen Use: Yes Assistive Devices: Walker Results & Data Vital Signs (Past 12 Hours) Vital Signs Temp Pulse Pulse Resp BP Pulse Ox O2 Del Method 02/01/24 16:01 83 02/01/24 15:38 36.7 C 79 19 106/69 94 Nasal Cannula 02/01/24 11:29 98 Nasal Cannula 02/01/24 11:29 Nasal Cannula 02/01/24 08:24 92 H 02/01/24 08:09 36.8 C 100 H 19 109/66 95 Nasal Cannula 02/01/24 04:31 88 O2 Flow Rate 02/01/24 16:01 02/01/24 15:38 3.0 02/01/24 11:29 4 02/01/24 11:29 3 02/01/24 08:24 02/01/24 08:09 4.0 02/01/24 04:31 (4) Follicular lymphoma Follicular lymphoma type: unspecified follicular type Lymphoma site: unspecified region Qualified Code(s): C82.90 - Follicular lymphoma, unspecified, unspecified site
[2024-02-01] MEDS: CHERRY SYRUP 5 ML UDP PO SCH (16:37)
[2024-02-01] MEDS: VANCOMYCIN HCL 125 MG/2.5ML SOLN PO SCH (16:37)
[2024-02-01] MEDS: MELATONIN 3 MG TAB PO SCH (20:31)
[2024-02-01] MEDS: MIRTAZAPINE TAB 15 MG TAB PO SCH (20:31)
[2024-02-02 07:32] LABS: BUN Creatinine Ratio 22.7 (10-20); Calcium 8.6 mg/dl (8.6-10.3); Creatinine Clr Calc Pharmacy 50.1 ml/min; Est GFR (African American) 65.3 ml/min; Est GFR (Non-African American) 56.3 ml/min; Potassium 3.4 mmol/L (3.5-5.1)
[2024-02-02 07:36] LABS: Anisocytosis Present; Basophils # (auto) 0.07 K/uL (0.00-0.20); Basophils % (auto) 1.8 %; Eosinophils # (auto) 0.28 K/uL (0.00-0.50); Eosinophils % (auto) 7.1 %; Hematocrit (blood only) 25.3 % (37.0-47.0); Hemoglobin 7.3 g/dl (12.0-16.0); Hypochromasia Present; Immature Granulocytes # (auto) 0.01 K/uL (0.01-0.20); Immature Granulocytes % (auto) 0.3 %; Mean Corpuscular Hemoglobin 24.6 pg (25.0-34.0); Mean Corpuscular Hgb Conc 28.9 g/dL (32.0-36.0); Mean Corpuscular Volume 85.2 fL (80.0-100.0); Mean Platelet Volume 9.7 fL (9.4-12.4); Monocytes # (auto) 0.42 K/uL (0.11-0.59); Monocytes % (auto) 10.7 %; Neutrophils # (auto) 2.24 K/uL (1.40-6.50); Neutrophils % (auto) 57.1 %; Platelet Count 262 K/uL (130-400); Polychromasia 2+; RDW Coefficient of Variation 25.2 % (11.5-14.5); RDW Standard Deviation 72.8 fL (36.4-46.3); Red Blood Count 2.97 M/uL (4.20-5.40); White Blood Count 3.92 K/ul (4.8-10.8)
[2024-02-02 07:41] LABS: Troponin I High Sensitivity 61.9 pg/ml (0-14)
--- NOTE | 2024-02-02 08:32 | Pulmonary Consultation ---
Date of Consultation February 02, 2024 Assessment & Plan (1) Bilateral pleural effusion: (2) Hypoxia: (3) Shortness of breath: (4) Severe aortic stenosis: (5) Anemia: (6) Chylothorax: (7) Follicular lymphoma: Follicular lymphoma type: unspecified follicular type Lymphoma site: unspecified region Qualified Code(s): C82.90 - Follicular lymphoma, unspecified, unspecified site Plan IMPRESSION: 77-year-old female with extensive prior history of tobacco abuse, follicular lymphoma on Rituxan therapy, chylothorax status post drain x3, and severe aortic stenosis. Pulmonary medicine consulted for evaluation of her bilateral, RIGHT greater than left, effusions with associated dyspnea. RECOMMENDATIONS: 1. Bilateral pleural effusions -RIGHT greater than left. Chest x-ray reviewed from early December demonstrates no effusion present. Patient had been evaluated in office at that time and a bedside ultrasound was performed which demonstrated no area of drainable effusion. Patient had previously undergone thoracentesis x 3 for diagnosis at the recommendation of the patient's oncologist. 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 She has tried low-fat diet without success and eventually became sick of tolerating that. She had been referred to [facility]'s interventional radiology team where she was evaluated for possible thoracic duct embolization for recurrence of the effusion, however when she had seen them in clinic she did not have a significant effusion with draining at that time. Interestingly, comparing the patient's films from recent outpatient last month compared to now shows a significant RIGHT-sided effusion with small LEFT-sided effusion noted on CTA. Additionally, her admission chest x-ray showed findings of pulmonary edema. Given the significant accumulation of this fluid in the short amount of time, the bilateral nature of the effusion which is new, and her associated dyspnea which she has not experienced previously, this likely represents the sequela of pulmonary edema with congestive heart failure. Additionally, the patient has been noted to have progressed to severe aortic stenosis. Her exam is impressive and has changed over the course of my clinical management of the patient's pulmonary processes. Given the patient's clinical deterioration and now requirement for oxygen as well as her associated dyspnea and size of effusion, it does make sense to repeat thoracentesis for both diagnostic and therapeutic purposes. Per oncology note, they would wish for pathology to be obtained to evaluate if this could be her lymphoma contributing. This makes the most sense to drain the effusion at this time. Otherwise, would continue with diuresis as tolerated as this likely would benefit the patient and aid in prevention for recurrence of the subsequent effusions. Additionally, if this is found to be a chylothorax which becomes recurrent issue, patient is established with [facility] interventional radiology team and she has been assessed for possible thoracic duct embolization procedure to help with recurrence of this chylothorax. 2. Hypoxia -likely secondary to #1. We will reassess after thoracentesis. 2. Dyspnea on Exertion -as discussed, likely multifactorial in a patient with severe aortic stenosis, significant kyphosis and likely poor degree of ventilatory function, generalized deconditioning in the setting of chronic pain syndromes, and bilateral effusions. 3. Severe aortic stenosis -likely contributing to degree of her shortness of breath as well as associated chest discomfort with exertion. Defer to cardiology for ongoing management. 4. Anemia - As managed by primary team and Hematology/Oncology. Certainly could be contributing to her symptoms of dyspnea also, but she is not that far off from her baseline, so I'm not sure how much aggressive transfusions might improve this. 5. COPD - Significant radiographic emphysema identified. Without symptoms. No management this time necessary. 6. Follicular lymphoma - Continue to follow with oncology. Thank you for allowing us to participate the care of this patient. Pulmonary medicine will be happy to follow along. Supervising Physician Co-Signing Physician Notes I saw and evaluated the patient with Ted Sexton PA-C, and agree with findings and plan as documented in the note. 78-year-old female presented to the hospital with complaints of chest pain and shortness of breath She has history of aortic stenosis as well as chylothorax in the past along with lymphoma. Pulmonary consulted for bilateral pleural effusion. At the time of examination patient was resting comfortably on the bed. She was saturating 94-95% on 2 L nasal cannula. Denies any chest pain. No headache, no nausea, no vomiting Has been afebrile. Constitutional: No acute distress HEENT: EOMI, PERRLA, arcus senilis bilaterally Respiratory system: Decreased air entry bilaterally, more decreased on the right, no wheeze, rhonchi, positive crackles bilaterally CVS: S1-S2 positive, positive 3 out of 6 stock murmur appreciated best at aorta Abdomen: Soft, nontender, nondistended, positive bowel sounds x4 Extremities: +2 pulses bilaterally radialis/ dorsalis pedis, no cyanosis, minimal pitting edema bilateral lower extremity Neuro: Awake alert oriented x3 Psych: Normal mood and affect G/U: No Noble Plan: Patient does have bilateral pleural effusion, she has history of chylothorax in the past. I think this time the effusions are most likely cardiac in origin Given the history of lymphoma and oncology wanting to rule out the effusions are not because of lymphoma. Thoracentesis was pursued on the right side. Risk and benefit of the procedure were explained to the patient in depth. She understands and agrees to go ahead with the procedure. Continue with O2 supplementation to keep oxygen saturation between 90-92% BiPAP nightly and as needed shortness of breath will also be beneficial Please note the above document was generated using voice recognition software. It may contain grammatical, syntax or spelling errors.Any formal questions or concerns about the content, text or information contained within the body of this dictation should be directly addressed to the provider for clarification. History of Present Illness Reason for Consultation: effusions - ?diagnostic/therapeutic thoracentesis Requesting Physician: Dr. 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 The patient had been seen in the pulmonary clinic on 12/28/2023 with complaints of dyspnea on exertion. During that evaluation, chest x-ray had recently been obtained which demonstrated no findings concerning with effusion. Additionally, the patient underwent bedside ultrasound in office which demonstrated no drainable effusion as well. Interestingly, on exam, the patient was noted to have a severe systolic ejection murmur. On review of her echocardiogram findings were consistent with progression to severe aortic stenosis. 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 During this evaluation, the patient had noted that she had had increasing cravings for ice and was noted to be slightly worsened from her baseline anemia. This was felt to be largely contributing to her symptoms. She had been doing okay, but unfortunately progression of her shortness of breath and inability to recover is what prompted her visit to the hospital. Upon evaluation in the emergency department, the patient was noted to have large RIGHT greater than left effusions. She was requiring supplemental oxygen. She has been seen and evaluated by cardiology as well as oncology. Thoughts moving forward are for diagnostic/therapeutic thoracentesis to evaluate pleural fluid and assess if this is related to her lymphoma. Patient was seen in room 208. She states that she still has some dyspnea with movement and exertion. She has had no chest pain or palpitations. No dizziness or lightheadedness. No cough. Allergies Allergy/AdvReac Type Severity Reaction Status Date / Time pollen extracts Allergy Intermediate ITCHY Verified 01/29/24 14:28 EYES, SNEEZING propolis (bee glue) Allergy Intermediate RASH FROM Verified 02/01/24 03:46 SURGICAL GLUE cellulose,oxidized Allergy Mild Rash Verified 01/29/24 14:28 [From Surgicel] latex Allergy Mild contact Verified 01/29/24 14:28 dermatitis nickel Allergy Mild contact Verified 01/29/24 14:28 dermatitis Sulfa (Sulfonamide Allergy Mild RASH Verified 01/29/24 14:28 Antibiotics) Home Medications Medication Instructions Recorded Confirmed Type cholecalciferol (vitamin D3) 50 2,000 units PO QAM 07/27/18 02/01/24 History mcg (2,000 unit) capsule multivitamin 1 tab PO BID 08/21/20 02/01/24 History vitamin B complex 1 tab PO QAM 09/27/20 02/01/24 History ascorbic acid (vitamin C) 500 mg 1,000 mg PO BID 12/28/20 02/01/24 History tablet (Vitamin C) nicotine (polacrilex) 4 mg gum 4 mg buccal Q4H PRN Nicotine 02/08/21 02/01/24 History (Nicorette) Dependence krill oil 500 mg capsule 500 mg PO QAM 06/13/21 02/01/24 History melatonin 3 mg tablet 3 mg PO HS 12/04/22 02/01/24 History aspirin 81 mg tablet,delayed 81 mg PO Q2D 12/23/22 02/01/24 History release (Adult Low Dose Aspirin) duloxetine 60 mg capsule,delayed 120 mg (2 x 60 mg) PO QAM #180 caps 03/16/23 02/01/24 Rx release (Cymbalta) mirtazapine 15 mg tablet (Remeron) 15 mg PO HS #90 tabs 03/16/23 02/01/24 Rx lansoprazole 30 mg capsule,delayed 30 mg PO QAM #90 caps 10/23/23 02/01/24 Rx release (Prevacid) sodium chloride 2 % eye drops 1 drp ophthalmic (eye) HS 10/23/23 02/01/24 History (Jorge Luis 128) naloxone 4 mg/actuation nasal 4 mg intranasal DIRECTED PRN 11/30/23 02/01/24 Rx spray (Narcan) overdose #2 ea gabapentin 300 mg capsule 600 mg (2 x 300 mg) PO .COMPLEX 01/08/24 02/01/24 Rx #450 caps oxycodone-acetaminophen 7.5 mg-325 1 tab PO Q6H PRN pain #90 tabs 01/18/24 02/01/24 Rx mg tablet (Percocet) fentanyl 37.5 mcg/hour transdermal 1 patch transdermal Q72H #10 ea 01/26/24 02/01/24 Rx patch ferrous sulfate 325 mg (65 mg 650 mg PO BID 01/26/24 02/01/24 History iron) tablet (iron) guar gum 1 tbsp PO QAM 02/01/24 02/01/24 History methenamine hippurate 1 gram 1 g PO .DAILY AT 1630 02/01/24 02/01/24 History tablet (Hiprex) Patient History Medical History Peripheral neuropathy Contact allergic reaction Gastroparesis History of COVID-19 2019 > hospitalized at [facility] Hx of Clostridium difficile infection hx of 2 yrs ago and treated Pleural effusion moderate to large chronic pleural effusion, most recent imaging 01/09/[address] Recurrent UTI COPD (chronic obstructive pulmonary disease) Moderate to severe aortic stenosis MSSA (methicillin susceptible Staphylococcus aureus) infection (03/2021) Chronic left hip pain Chronic pain of lower extremity, bilateral Pneumonia due to 2019 novel coronavirus resolved UTI (urinary tract infection) chronic > preventative antibiotic on med list VRE infection (vancomycin resistant Enterococcus) hx of 2 yrs ago > resolved Leukocytosis NSTEMI (non-ST elevated myocardial infarction) pt unaware Moderate mitral regurgitation Mild aortic regurgitation Bacteremia due to Gram-negative bacteria Emphysema of lung Noted on chest CTs but not reported by patient. 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 no problems since. no thinners Anxiety Piriformis syndrome Peripheral edema to legs at present Lumbar canal stenosis Gastroesophageal reflux disease Depression Atherosclerosis of aorta follows with Dr. 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 and treating with Dr Moseley (oncology) Post laminectomy syndrome Surgical History Port-A-Cath in place (01/28/23) Insertion of Access Port right IJ with Fluoroscopy(Right) - Chavo Hubbard DO, FACS Previous back surgery none to cervical spine, x3 total History of colonoscopy History of laminectomy lumbar ~2013 Status post laminectomy with spinal fusion lumbar, 2007 & 2008 H/O cataract removal with insertion of prosthetic lens bilateral S/P hip replacement (2016) bilateral 2014, 2016 History of knee replacement procedure of right knee 2001 History of cholecystectomy 1977 Family History Father Abdominal aneurysm Colorectal cancer Grandmother (Paternal) Cancer Throat Other No family history of adverse response to anesthesia Denies family history of Ovarian cancer Prostate cancer Myocardial infarction Breast cancer Social History Smoking Status: Former smoker Tobacco Type: Cigarettes packs per day: 2; Second Hand Exposure: No; Do You Dip or Chew Tobacco: No; Hx Alcohol Use: No Hx Substance Use: No Preferred Language: Gibraltarian Communication Ability: Effective Visual Impairment: Limited Hearing Ability: Normal Biomedical Service Engineer Required: No Beliefs That Will Affect Care: None marital status: / Current Living Situation: Family current occupational status: retired How many Children do You have: 2 Other Information That Helps Us Care for You: No Feels Safe at Home: Yes Safety Concerns: Feels Safe At This Time Childhood Exposure to Second-Hand Smoke: Yes Diet: regular caffeine: Yes (drinks coffee daily ) during the past year weight has: decreased > 10 lbs Dental Care, Regularly: No Physical Activity Frequency: Does not Exercise Seatbelt Use: always Sunscreen Use: Yes Assistive Devices: Walker Review of Systems Review of Systems: A complete 10 point review of systems was reviewed with the patient with pertinent positives and negatives as per history of present illness. All else were negative. Physical Exam Physical Exam: VITAL SIGNS - Vital signs and nursing notes were reviewed. GENERAL - 78-year-old female appearing her stated age who is in no acute distress. Communicates well with provider and answers questions appropriately. SKIN - Without rashes or lesions. NOSE - Midline and without cyanosis. MOUTH/OROPHARYNX - Without perioral cyanosis. NECK - Neck with FROM. Supple to palpation. LUNGS - Severe kyphosis noted. Auscultation reveals Diminished breath sounds at the RIGHT sided lung base. No wheezes appreciated. CARDIAC - RRR with S1/S2. No murmur, rubs, or gallops appreciated. PSYCH - A&Ox3 and cooperates fully with examiner. Pt is very pleasant and interacts well with examiner. Results & Data Results & Data Vital Signs (Past 12 Hours) Vital Signs Temp Pulse Pulse Resp BP Pulse Ox O2 Del Method 02/02/24 07:16 36.4 C L 77 18 100/63 95 Nasal Cannula 02/02/24 07:00 66 02/02/24 02:30 35.8 C L 89 14 103/64 93 Nasal Cannula 02/01/24 22:50 84 02/01/24 22:26 36.9 C 78 18 91/58 L 94 Nasal Cannula O2 Flow Rate 02/02/24 07:16 3 02/02/24 07:00 02/02/24 02:30 3 02/01/24 22:50 02/01/24 22:26 3 PG Care Time/CCT Total # of Minutes Spent Total Time Spent with Patient: Total time spent is greater than 50% in coordination of care (as documented) at patient's floor/unit and/or counseling patient: Coding Level of Care Code 41918 INT INP/OBS CARE 3/75MIN Diagnoses Bilateral pleural effusion J90 Hypoxia R09.02 Shortness of breath R06.02 Severe aortic stenosis I35.0 Anemia D64.9 Chylothorax J94.0 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 Follicular lymphoma type: unspecified follicular type Lymphoma site: unspecified region
[2024-02-02] MEDS: IRON SUCROSE 300 MG in SODIUM CHLORIDE 0.9% 250 ML IV ONE (08:37)
[2024-02-02 09:21] LABS: Albumin Level 3.7 gm/dl (3.4-5.0); Bilirubin,Total 0.4 mg/dl (0.2-1.0); Total Protein 5.7 gm/dl (6.0-8.3)
--- NOTE | 2024-02-02 09:32 | Hospitalist Progress Note ---
Date of Service February 02, 2024 Assessment & Plan (1) Severe aortic stenosis: Plan: * (2) Anemia: (3) Dyspnea: (4) Exertional chest pain: (5) Pleural effusion: (6) COPD (chronic obstructive pulmonary disease): (7) Anxiety disorder, unspecified: (8) Gastroesophageal reflux disease: (9) Depression: (10) Chronic pain syndrome: (11) Hyperlipidemia: (12) Hypertension: (13) Follicular lymphoma: Plan Summary: Evelyn is a 78F w/ PMH of severe , chronic anemia, carotid stenosis, peripheral neuropathy, pleural effusion, COPD, anxiety, arthritis, GERD, depression, HLD, HTN, chronic pain syndrome, follicular lymphoma (~ 2017, received non-chemo Tx followed by non-chemo Tx/chemo in Oct 2022) who presented for evaluation of worsening dyspnea (dyspnea on rest). ED Course: 1L NSS 1) Worsening Dyspnea w/ Exertion, present at rest on admission - Likely multifactorial, as described below - left sided chest tightness (which has improved since iron supplementation as outpt) - Troponin elevated, likely due to demand ischemia from chronic anemia and severe , trend to peak 2) Acute on Chronic Anemia * Patient with baseline of 10, last at 7.3 * S/p outpatient PO iron supplementation and iron transfusions, continue PO supplement * Eval for potential sources of bleeding: STAT CT Chest & CT Abdomen/Pelvis * Hold Aspirin 81 mg and chemical DVT ppx, SCDs ordered * STAT H&H and Type & Screen ordered, Hgb 7.3 this morning, 1 U PRBC's given today * Patient currently hemodynamically stable * Hem/Onc consulted --> recommendations: 1) gave 1 dose of Venofer (iron sucrose, IV), 300 mg and 1 U PRBCs, 2) possible F/U as outpt if anemia doesn't improve to have bone marrow Bx to evaluate for follicular lymphoma 3) Severe Aortic Stenosis * Chronic, progressing * Increasing LE edema and worsening dyspnea potentially 2/2 progression of but has improved on Lasix * Recent Echo with EF 55-60% w/ LVH * Previous consideration for TAVR at [facility] * Cardiology consulted: elevated troponins likely supply demand mismatch, deferred on any repeat echo, waiting for correction of pt's anemia before evaluating contribution of pt's to her current dyspnea, hypoxia, res piratory decline * Ongoing dyspnea, patient likely to benefit from diuresis, ordered Lasix 40 mg and 20 mg (once each) IV and Albumin 25g, follow strict I&Os 4) Pleural Effusion * Last seen by Pulmonology 12/28, evaluation by [facility] IR did not recommend drainage at that time * Thought to be 2/2 Lymphoma, 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 upper lobe, concerning for pneumonia * Considered azithromycin and cefepime for pneumonia but were discontinued after 1 day of Tx Chronic Conditions: * Chronic Pain Syndrome: Continue home Percocet, Gabapentin, Duloxetine, and Fentanyl patch * Anxiety/Depression: Continue Mirtazapine * Insomnia: Continue melatonin * GERD: Continue Lansoprazole * Previous C-Diff Infection: Continue methenamine hippurate, start vancomycin, PO, 125 mg, Q6h Code Status:Full Diet:Heart Healthy IVF:None DVT PPx:SCDs Dispo: PCU/tele Admission and Anticipated Discharge Date Admission Date: February 01, 2024 Supervising Physician Co-Signing Physician Notes I personally examined the patient and verified all deshpande points of history and exam, discussed case, and agree with decision making with Dr Amaya seen postthoracentesis. Doing well. Breathing well. Feeling much better. Out of bed, does not note any undue dyspnea on exertion, and did walk around the unit some. Vitals noted, in general she is awake and alert pleasant no distr ess. HEENT normocephalic atraumatic mucous membranes moist. Breathing unlabored no accessory muscle use good effort. Skin shows no rashes no pallor or icterus. Dyspnea/hypoxiaappears acutely to be due to acute on chronic diastolic CHFwhich in turn appears to be due to to a combination of severe aortic stenosis and high-output failure from her iron deficiency anemiaoverall improving. Appears to have improved most dramatically postthoracentesis. Continue to diurese as her blood pressure and kidney function allow, as an outpatient definitely will want to see if she is a candidate for a TAVR. Awaiting full studies on fluids, But I suspect it will be CHF related. Hopefully home with close outpatient follow-up and ongoing management as soon as tomorrow if she continues to do well. Stopped antibiotics yesterday, no appearance of rebound. DVT proph - Far more ambulatory than I suspect that she would be. Given recent procedures, anemia, etc. risk/benefit favors ambulation given how well she is moving. Subjective Patient has been feeling better with her dyspnea at rest since being admitted to the hospital. Review of Systems Constitutional: + fatigue; no fever, no chills and no we akness Eyes: no diplopia and no worsening vision Ear, Nose, Mouth, Throat: no nasal congestion, no nasal discharge and no sore throat Respiratory: + dyspnea on exertion; no cough, no ches t congestion and no dyspnea Cardiovascular: + dyspnea on exertion; no chest pain, no dyspnea at rest and no palpitations Gastrointestinal: + diarrhea/loose stools (due to Benefibe r pt takes to combat constipation from iron pills); no abdominal pain, no nausea, no vomiting and no constipation Genitourinary: no dysuria Neurologic: no localized weakness, no tingling and no numbness Physical Exam Constitutional: cooperative and comfortable Respiratory: normal respiratory effort, lungs clear to auscultation Cardiovascular: Rate/Rhythm: regular rate and regular rhythm Heart Sounds: + murmur Extremities: + pedal edema (improved pedal edema); no calf tenderness Gastrointestinal (Abdomen): normal bowel sounds, soft, nontender, no hepatosplenomegaly Psychiatric: A+Ox3, euthymic affect Results & Data Results & Data Vital Signs (Past 12 Hours) Vital Signs Temp Pulse Pulse Resp BP Pulse Ox O2 Del Method 02/02/24 08:24 Nasal Cannula 02/02/24 07:16 36.4 C L 77 18 100/63 95 Nasal Cannula 02/02/24 07:00 66 02/02/24 02:30 35.8 C L 89 14 103/64 93 Nasal Cannula 02/01/24 22:50 84 02/01/24 22:26 36.9 C 78 18 91/58 L 94 Nasal Cannula O2 Flow Rate 02/02/24 08:24 3 02/02/24 07:16 3 02/02/24 07:00 02/02/24 02:30 3 02/01/24 22:50 02/01/24 22:26 3 (7) Anxiety disorder, unspecified Anxiety disorder type: generalized anxiety disorder Qualified Code(s): F41.1 - Generalized anxiety disorder (9) Depression Depression Type: unspecified Qualified Code(s): F32.9 - Major depressive disorder, single episode, unspecified (11) Hyperlipidemia Hyperlipidemia type: unspecified Qualified Code(s): E78.5 - Hyperlipidemia, unspecified (12) Hypertension Hypertension type: essential hypertension Qualified Code(s): I10 - Essential (primary) hypertension (13) Follicular lymphoma Follicular lymphoma type: unspecified follicular type Lymphoma site: unspecified region Qualified Code(s): C82.90 - Follicular lymphoma, unspecified, unspecified site
--- NOTE | 2024-02-02 10:33 | Procedure Note ---
Procedure Note Date of Service February 02, 2024 Note Procedure: Diagnostic therapeutic ultrasound-guided catheter thoracentesis Manual Lathe Machinist: Dr. Jovanna Key Indication: Right pleural effusion Consent: Signed by patient and verified with timeout prior to procedure Anesthesia: 1% lidocaine without epinephrine local. Procedure: Consent was verified and timeout performed. Appropriate imaging studies were reviewed prior to the procedure. Patient was placed in a seated position and limited thoracic ultrasound was performed of the right chest. See separate imaging. Appropriate site above the diaphragm for thoracentesis was selected. The skin was prepped and draped in normal sterile fashion. Lidocaine was used for local analgesia. Fluid was aspirated via the finder needle. A small skin carrol was made with the scalpel and the catheter over the needle apparatus was advanced over the rib into the pleural space. Using the syringe one-way valve system, a total of 1100 mL's of cloudy serous fluid was removed. The catheter was removed and observed to be intact. A sterile dressing was applied. Post procedure chest x-ray was ordered. Fluid was sent for labs, culture and cytology. Complications: None Blood loss: None Coding CPT Codes Pulmonary/Thoracic - Pulmonary and Thoracic: 78594 Thoracentesis w imaging ([id number]) [facility] [place] Procedure Codes (Charges) Pulmonary/Thoracic Procedure 1: Pulmonary and Thoracic: 31312 Thoracentesis w imaging
--- NOTE | 2024-02-02 11:08 | XRay Report ---
XR chest 1V portable CLINICAL HISTORY: s/p thora TECHNIQUE: Single frontal radiograph of the chest was obtained. Comparison: Comparison is made to chest radiograph 01/31/2024 FINDINGS: A port catheter is seen. The cardiomediastinal silhouette is stable. Left lower lung airspace opacity is seen. Right lower lung airspace opacity has significantly improved. Interval resolution of right pleural effusion. Small left pleural effusion is slightly increased from prior exam. No pneumothorax. IMPRESSION: 1. Interval resolution of right pleural effusion status post thoracentesis. No pneumothorax. 2. Small left pleural effusion, increased from prior exam. Likely underlying atelectasis. ACT 112: Negative or not required by law. Electronically signed by: Beck Newton M.D. 02/02/2024 11:07 AM
[2024-02-02 11:30] LABS: Amylase Pleural Fluid 12 U/L
[2024-02-02 11:35] LABS: Glucose Pleural Fluid 118 mg/dl; LDH Pleural Fluid 67 U/L; Total Protein Pleural Fluid < 3.0 gm/dl
[2024-02-02 13:58] LABS: Appearance Pleural Fluid Hazy; Color Pleural Fluid Straw; Lymphocytes, Fluid 54 %; Mono,Macrophage,Mesothelial 36 %; Neutrophils, Fluid 10 %; RBC Pleural Fluid Auto 6000 /uL; Source Pleural Fluid Right Lung; WBC Pleural Fluid Auto 434 /uL
[2024-02-02] MEDS: METHENAMINE HIPPURATE 1 GM TAB PO SCH (16:49)
--- NOTE | 2024-02-02 18:49 | Billing Data ---
Date of Service February 02, 2024 Coding Level of Care Code 57180 SUB INP/OBS CARE MIN
[2024-02-03 06:22] LABS: Basophils # (auto) 0.06 K/uL (0.00-0.20); Basophils % (auto) 1.2 %; Eosinophils # (auto) 0.23 K/uL (0.00-0.50); Eosinophils % (auto) 4.7 %; Hematocrit (blood only) 28.3 % (37.0-47.0); Hemoglobin 8.3 g/dl (12.0-16.0); Immature Granulocytes # (auto) 0.01 K/uL (0.01-0.20); Immature Granulocytes % (auto) 0.2 %; Lymphocytes # (auto) 0.87 K/uL (1.20-3.40); Lymphocytes % (auto) 17.6 %; Mean Corpuscular Hemoglobin 24.9 pg (25.0-34.0); Mean Corpuscular Hgb Conc 29.3 g/dL (32.0-36.0); Mean Corpuscular Volume 84.7 fL (80.0-100.0); Monocytes # (auto) 0.42 K/uL (0.11-0.59); Monocytes % (auto) 8.5 %; Neutrophils # (auto) 3.35 K/uL (1.40-6.50); Neutrophils % (auto) 67.8 %; Platelet Count 308 K/uL (130-400); RDW Coefficient of Variation 25.2 % (11.5-14.5); RDW Standard Deviation 73.7 fL (36.4-46.3); Red Blood Count 3.34 M/uL (4.20-5.40); White Blood Count 4.94 K/ul (4.8-10.8)
[2024-02-03 06:37] LABS: BUN Creatinine Ratio 24.1 (10-20); Calcium 8.9 mg/dl (8.6-10.3); Creatinine Clr Calc Pharmacy 58.5 ml/min; Est GFR (African American) 78.8 ml/min; Potassium 3.3 mmol/L (3.5-5.1)
[2024-02-03 06:45] LABS: Anisocytosis Present; Hypochromasia Present; Polychromasia 1+; Rouleaux 1+; Tear Drop Cells 1+
--- NOTE | 2024-02-03 07:21 | Hospitalist Progress Note ---
Date of Service February 03, 2024 Assessment & Plan (1) Severe aortic stenosis: Plan: * (2) Anemia: (3) Dyspnea: (4) Exertional chest pain: (5) Pleural effusion: (6) COPD (chronic obstructive pulmonary disease): (7) Anxiety disorder, unspecified: (8) Gastroesophageal reflux disease: (9) Depression: (10) Chronic pain syndrome: (11) Hyperlipidemia: (12) Hypertension: (13) Follicular lymphoma: Plan Summary: Evelyn is a 78F w/ PMH of severe , chronic anemia, carotid stenosis, peripheral neuropathy, pleural effusion, COPD, anxiety, arthritis, GERD, depression, HLD, HTN, chronic pain syndrome, follicular lymphoma (~ 2017, received non-chemo Tx followed by non-chemo Tx/chemo in Oct 2022) who presented for evaluation of worsening dyspnea (dyspnea on rest). ED Course: 1L NSS 1) Worsening Dyspnea w/ Exertion, present at rest on admission - Likely multifactorial, as described below - left sided chest tightness (which has improved since iron supplementation as outpt) - Troponin elevated, likely due to demand ischemia from chronic anemia and severe , trend to peak 2) Acute on Chronic Anemia * Patient with baseline of 10, last at 7.3 * S/p outpatient PO iron supplementation and iron transfusions, continue PO supplement * Eval for potential sources of bleeding: STAT CT Chest & CT Abdomen/Pelvis * Hold Aspirin 81 mg and chemical DVT ppx, SCDs ordered * STAT H&H and Type & Screen ordered, Hgb 7.3 this morning, 1 U PRBC's given today * Patient currently hemodynamically stable * Hem/Onc consulted --> recommendations: 1) gave 1 dose of Venofer (iron sucrose, IV), 300 mg and 1 U PRBCs, 2) possible F/U as outpt if anemia doesn't improve to have bone marrow Bx to evaluate for follicular lymphoma 3) Severe Aortic Stenosis * Chronic, progressing * Increasing LE edema and worsening dyspnea potentially 2/2 progression of but has improved on Lasix * Recent Echo with EF 55-60% w/ LVH * Previous consideration for TAVR at [facility] [place] * Cardiology consulted: elevated troponins likely supply demand mismatch, deferred on any repeat echo, waiting for correction of pt's anemia before evaluating contribution of pt's to her current dyspnea, hypoxia, res piratory decline * Ongoing dyspnea, patient likely to benefit from diuresis, ordered Lasix 40 mg and 20 mg (once each) IV and Albumin 25g, follow strict I&Os 4) Pleural Effusion * Last seen by Pulmonology 12/28, evaluation by [facility] IR did not recommend drainage at that time * Thought to be 2/2 Lymphoma, 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 upper lobe, concerning for pneumonia * Considered azithromycin and cefepime for pneumonia but were discontinued after 1 day of Tx Chronic Conditions: * Chronic Pain Syndrome: Continue home Percocet, Gabapentin, Duloxetine, and Fentanyl patch * Anxiety/Depression: Continue Mirtazapine * Insomnia: Continue melatonin * GERD: Continue Lansoprazole * Previous C-Diff Infection: Continue methenamine hippurate, start vancomycin, PO, 125 mg, Q6h Code Status:Full Diet:Heart Healthy IVF:None DVT PPx:SCDs Dispo: PCU/tele Admission and Anticipated Discharge Date Admission Date: February 01, 2024 Subjective Patient has been feeling better since being admitted to the hospital, AAO x 4, with no dyspnea at rest, and dyspnea with exertion only with moderate acitivity. Review of Systems Constitutional: + fatigue; no fever, no chills and no we akness Eyes: no diplopia and no worsening vision Ear, Nose, Mouth, Throat: no nasal congestion, no nasal discharge and no sore throat Respiratory: no cough, no chest congestion, no dyspnea and no dyspnea on exertion Cardiovascular: no chest pain, no dyspnea at rest and no palpitations Gastrointestinal: + diarrhea/loose stools (due to Benefibe r pt takes to combat constipation from iron pills); no abdominal pain, no nausea, no vomiting and no constipation Genitourinary: no dysuria Neurologic: no localized weakness, no tingling and no numbness Physical Exam Constitutional: cooperative and comfortable Respiratory: normal respiratory effort, lungs clear to auscultation Cardiovascular: Rate/Rhythm: regular rate and regular rhythm Heart Sounds: + murmur Extremities: + pedal edema (improved pedal edema); no calf tenderness Gastrointestinal (Abdomen): normal bowel sounds, soft, nontender, no hepatosplenomegaly Psychiatric: A+Ox3, euthymic affect Results & Data Results & Data Vital Signs (Past 12 Hours) Vital Signs Temp Pulse Pulse Resp BP Pulse Ox O2 Del Method 02/03/24 07:08 73 02/03/24 02:42 36.6 C 84 20 120/73 92 Room Air 02/03/24 01:00 83 02/02/24 23:14 37.0 C 96 H 18 114/69 95 Room Air 02/02/24 19:33 37.0 C 84 18 106/68 92 Room Air (7) Anxiety disorder, unspecified Anxiety disorder type: generalized anxiety disorder Qualified Code(s): F41.1 - Generalized anxiety disorder (9) Depression Depression Type: unspecified Qualified Code(s): F32.9 - Major depressive disorder, single episode, unspecified (11) Hyperlipidemia Hyperlipidemia type: unspecified Qualified Code(s): E78.5 - Hyperlipidemia, unspecified (12) Hypertension Hypertension type: essential hypertension Qualified Code(s): I10 - Essential (primary) hypertension (13) Follicular lymphoma Follicular lymphoma type: unspecified follicular type Lymphoma site: unspecified region Qualified Code(s): C82.90 - Follicular lymphoma, unspecified, unspecified site
--- NOTE | 2024-02-03 07:46 | XRay Report ---
XR chest 1V portable CLINICAL HISTORY: f/u COMPARISON STUDY: Chest CT February 01, 2024. Chest CT February 02, 2024. FINDINGS: Right internal jugular [id number] is unchanged in position. There is no pneumothorax. Sm all left pleural effusion with left basilar opacity persists. Pulmonary edema has not significantly c hanged. Cardiomediastinal silhouette is stable. IMPRESSION: 1. No change in pulmonary edema. 2. No significant change in small left pleural effusion with left basilar opacity. ACT 112: Negative or not required by law. Electronically signed by: Jacob Trejo M.D. 02/03/2024 7:45 AM
--- NOTE | 2024-02-03 08:50 | Pulmonology Progress Note ---
Date of Service February 03, 2024 Assessment & Plan (1) Bilateral pleural effusion: (2) Hypoxia: (3) Shortness of breath: (4) Severe aortic stenosis: (5) Anemia: (6) Chylothorax: (7) Follicular lymphoma: Follicular lymphoma type: unspecified follicular type Lymphoma site: unspecified region Qualified Code(s): C82.90 - Follicular lymphoma, unspecified, unspecified site Plan IMPRESSION: 77-year-old female with extensive prior history of tobacco abuse, follicular lymphoma on Rituxan therapy, chylothorax status post drain x3, and severe aortic stenosis. Pulmonary medicine consulted for evaluation of her bilateral, RIGHT greater than left, effusions with associated dyspnea. RECOMMENDATIONS: 1. Bilateral pleural effusions - RIGHT greater than left. Patient underwent diagnostic and therapeutic thoracentesis yesterday. Pleural fluid consistent with transudative process likely related to the patient's CHF exacerbation. Chest x-ray reviewed this morning shows persistent pulmonary edema. Would agree with diuresis for the patient. Certainly would be cautious in a patient with fixed obstructive valvulopathy and removal of large volumes of fluid. Overall, the patient feels much better at this point. Fluid does not demonstrate pylorus process. Thankfully, the patient is already scheduled in the outpatient setting early next month. Will see her at that time and perform ultrasound and/or chest x-ray if necessary. From a pulmonary perspective, the patient has recovered and back to her baseline. Pulmonary medicine will sign off at this time. 2. Hypoxia - Resolved. 2. Dyspnea on Exertion - Multifactorial in a patient with severe aortic stenosis, significant kyphosis and likely poor degree of ventilatory function, generalized deconditioning in the setting of chronic pain syndromes, and bilateral effusions. 3. Severe aortic stenosis - Likely contributing to degree of her shortness of breath as well as associated chest discomfort with exertion. Defer to cardiology for ongoing management. 4. Anemia - As managed by primary team and Hematology/Oncology. Certainly could be contributing to her symptoms of dyspnea also, but she is not that far off from her baseline, so I'm not sure how much aggressive transfusions might improve this. 5. COPD - Significant radiographic emphysema identified. Without symptoms. No management this time necessary. 6. Follicular lymphoma - Continue to follow with oncology. Thank you for allowing us to participate the care of this patient. Pulmonary medicine will sign off at this time. Admission and Anticipated Discharge Date Admission Date: February 01, 2024 Supervising Physician Co-Signing Physician Notes I saw and evaluated the patient with Ted Sexton PA-C, and agree with findings and plan as documented in the note. Patient seen and examined at bedside. No acute distress, no adverse events overnight She says she is feeling much better after thoracentesis. Denies any chest pain Was sitting on the chair. Fair appetite, no nausea or vomiting Was asking if she could go home today Constitutional: No acute distress HEENT: EOMI, PERRLA, arcus senilis bilaterally Respiratory system: Decreased air entry bilaterally, no wheeze, rhonchi, mild crackles bilateral lower lobes CVS: S1-S2 positive, positive 4 out of 6 pansystolic murmur appreciated best at aorta Abdomen: Soft, nontender, nondistended, positive bowel sounds x4 Extremities: +2 pulses bilaterally radialis/ dorsalis pedis, no cyanosis, no edema Neuro: Awake alert oriented x3 Psych: Normal mood and affect G/U: No Noble Plan: Chest x-ray from today does not show reaccumulation of the fluid. Small left- sided pleural effusion S/p thoracentesis with removal of 1100 mL fluid cloudy serous on 02/02/2024. Transudative as per lights criteria. Follow-up cytology. Will recommend follow-up with cardiology to decide regarding her aortic stenosis as I do think that is playing a role in her pleural effusions. No further recommendation from pulmonary perspective, will sign off Please call directly with any questions Please note the above document was generated using voice recognition software. It may contain grammatical, syntax or spelling errors.Any formal questions or concerns about the content, text or information contained within the body of this dictation should be directly addressed to the provider for clarification. Subjective Patient seen and evaluated at bedside. She reports feeling much better today. She is down off of supplemental oxygen at this time and doing well on room air. She is hopeful to be discharged home soon. Review of Systems Review of Systems: A complete 10 point review of systems was reviewed with the patient with pertinent positives and negatives as per history of present illness. All else were negative. Physical Exam Physical Exam: VITAL SIGNS - Vital signs and nursing notes were reviewed. GENERAL - 78-year-old female appearing her stated age who is in no acute distress. Communicates well with provider and answers questions appropriately. LUNGS - Severe kyphosis noted. Auscultation reveals Diminished breath sounds at the RIGHT sided lung base. No wheezes appreciated. CARDIAC - RRR with S1/S2. No murmur, rubs, or gallops appreciated. PSYCH - A&Ox3 and cooperates fully with examiner. Pt is very pleasant and interacts well with examiner. Results & Data Results & Data Vital Signs (Past 12 Hours) Vital Signs Temp Pulse Pulse Resp BP Pulse Ox O2 Del Method 02/03/24 07:35 36.6 C 81 18 127/82 91 Room Air 02/03/24 07:08 73 02/03/24 02:42 36.6 C 84 20 120/73 92 Room Air 02/03/24 01:00 83 02/02/24 23:14 37.0 C 96 H 18 114/69 95 Room Air PG Care Time/CCT Total # of Minutes Spent Total Time Spent with Patient: Total time spent is greater than 50% in coordination of care (as documented) at patient's floor/unit and/or counseling patient: Coding Level of Care Code 35392 SUB INP/OBS CARE 2/35MIN Diagnoses Bilateral pleural effusion J90 Hypoxia R09.02 Shortness of breath R06.02 Severe aortic stenosis I35.0 Anemia D64.9 Chylothorax J94.0 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 Follicular lymphoma type: unspecified follicular type Lymphoma site: unspecified region
--- NOTE | 2024-02-03 16:07 | Discharge Summary ---
Date of Service February 03, 2024 Admission HPI Per Admitting Provider Evelyn is a 78F w/ PMH of severe , chronic anemia, carotid stenosis, peripheral neuropathy, pleural effusion, COPD, anxiety, arthritis, GERD, depression, HLD, HTN, chronic pain syndrome who presents for evaluation of worsening dyspnea. Patient notes that she has had dyspnea with exertion for months, but that over the last 2 weeks it has been getting worse. 2 weeks ago she started having cravings for ice, in the past, this has been her sign that her iron levels are low. Because of this, she started iron supplementation. She had seen Pulmonology in December, who had told her that her pleural effusion was not large enough for drainage, so she did not believe her current sx were pulmonary. She then contacted her [employer] Driller, who ordered outpatient labs. Her Hgb was found to be 7.2 and iron infusions were then ordered outpatient. Patient notes that she presented to the ED today because she started having chest discomfort and dyspnea at rest, which is a new symptom for her. She denies any recent cold symptoms, fevers or chills. She localizes her discomfort to her left chest and notes it resolves in 5-10 minutes of onset. She was having the same chest discomfort in the past with her MEEHAN, but notes that it had improved with iron supplementation. Patient denies any diarrhea or constipation. She has not experienced any melena or BRBPM. She has not started any additional medications. She continues to follow with Oncology for Follicular Lymphoma. Patient notes that she has been anemic most of her adult life, baseline Hgb 10. But that over the summer she had to stop her iron supplementation during chemotherapy and forgot to restart it. Admission Exam Per Admitting Provider Physical Exam: Gen: NAD, alert, interactive HEENT: Supple, no LAD, no thyromegaly, no JVD, MMM Resp:Non-labored, scattered expiratory wheeze, diminished in RLL, otherwise CTAB CV:RRR, normal S1/S2, 5/6 systolic murmur Abd: Soft, non-distended, no TTP, normoactive bowels, no masses Extr: 2+ dp bilaterally, 1+ pitting LE edema Skin: No rashes lesions or erythema Principal Diagnosis severe aortic stenosis Discharge Exam Constitutional cooperative and comfortable Respiratory normal respiratory effort, lungs clear to auscultation Cardiovascular Rate/Rhythm: regular rate and regular rhythm Heart Sounds: + murmur Extremities: + pedal edema (sig improved pedal edema/very mild); no calf tenderness Gastrointestinal (Abdomen) normal bowel sounds, soft, nontender, no hepatosplenomegaly Psychiatric A+Ox3, euthymic affect Discharge Data Allergies Allergy/AdvReac Type Severity Reaction Status Date / Time pollen extracts Allergy Intermediate ITCHY Verified 01/29/24 14:28 EYES, SNEEZING propolis (bee glue) Allergy Intermediate RASH FROM Verified 02/01/24 03:46 SURGICAL GLUE cellulose,oxidized Allergy Mild Rash Verified 01/29/24 14:28 [From Surgicel] latex Allergy Mild contact Verified 01/29/24 14:28 dermatitis nickel Allergy Mild contact Verified 01/29/24 14:28 dermatitis Sulfa (Sulfonamide Allergy Mild RASH Verified 01/29/24 14:28 Antibiotics) Consultations 02/01/24 00:57 ED Decision to Admit Stat 02/01/24 03:39 Consult Cardiology Routine Consult Hematology Routine 02/01/24 18:17 Consult Pulmonology Routine Ordered Studies 02/01/24 01:46 CT Abd and Pelvis [CT abd pelvis IV con only] Stat CT angio chest PE protocol Stat 02/02/24 09:18 sono, invasive monitoring [US point of care ultrasound] Routine Hospital Course (1) Severe aortic stenosis: * (2) Anemia: (3) Dyspnea: (4) Exertional chest pain: (5) Pleural effusion: (6) COPD (chronic obstructive pulmonary disease): (7) Anxiety disorder, unspecified: (8) Gastroesophageal reflux disease: (9) Depression: (10) Chronic pain syndrome: (11) Hyperlipidemia: (12) Hypertension: (13) Follicular lymphoma: Plan Summary: Evelyn is a 78F w/ PMH of severe , chronic anemia, carotid stenosis, peripheral neuropathy, pleural effusion, COPD, anxiety, arthritis, GERD, depression, HLD, HTN, chronic pain syndrome, follicular lymphoma (~ 2018, received non-chemo Tx followed by non-chemo Tx/chemo Tx in Oct 2022) who presented for evaluation of worsening dyspnea (dyspnea on rest). ED Course: 1L NSS 1) Worsening Dyspnea w/ Exertion, present at rest on admission - Likely multifactorial, as described below - left sided chest tightness (which has improved since iron supplementation as outpt) - Troponin elevated, likely due to demand ischemia from chronic anemia and severe , trend to peak 2) Acute on Chronic Anemia * Patient with baseline of 10, last at 8.3 * S/p outpatient PO iron supplementation and iron transfusions, continue PO supplement * Eval for potential sources of bleeding: STAT CT Chest & CT Abdomen/Pelvis * Held Aspirin 81 mg and chemical DVT ppx, SCDs ordered * STAT H&H and Type & Screen ordered, Hgb 8.3 this morning, 1 U PRBC's given during stay * Patient currently hemodynamically stable * Hem/Onc consulted --> recommendations: 1) gave 1 dose of Venofer (iron sucrose, IV), 300 mg and 1 U PRBCs, 2) possible F/U as outpt if anemia doesn't improve to have bone marrow Bx to evaluate for follicular lymphoma 3) Severe Aortic Stenosis * Chronic, progressing * Increasing LE edema and worsening dyspnea potentially 2/2 progression of upon admission, improved on Lasix * Recent Echo with EF 55-60% w/ LVH * Previous consideration for TAVR at [facility] * Cardiology consulted: elevated troponins likely supply demand mismatch, repeat echo deferred, pt's likely sig. 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, asymptomatic * CXR 01/30 indicates increasing volume of pleural effusion * Would consider consultation to IR for thoracentesis of symptoms continue to progress despite above measures * Thoracocentesis performed yesterday, 1100 mL of cloudy, serous fluid removed --> fluid labs, culture, cytology pending * Pleural Fluid labs: pleural LDH, 67 (ser LDH, 141) ; pleural prot, < 3.0 (ser prot, 5.7); pleural glu, 118; pleural chol, pending * Pleural Fluid Gram Stain, neg; Cx pending * Pleural Fluid suggests transudative pleural effusion (pLDH/sLDH = 0.48) likely 2/2 pt's severe 5) Pneumonia * Patchy consolidations in l. upper lobe, concerning for pneumonia * Considered azithromycin and cefepime for pneumonia but were discontinued after 1 day of Tx * Vancomycin as prophylaxis against C. diff infection discontinued at discharge Chronic Conditions: * Chronic Pain Syndrome: Continue home Percocet, Gabapentin, Duloxetine, and Fentanyl patch * Anxiety/Depression: Continue Mirtazapine * Insomnia: Continue melatonin * GERD: Continue Lansoprazole * Previous C-Diff Infection: Continue methenamine hippurate, vancomycin discontinued Total Time Total Time Spent Total Time Spent (In Minutes): <30 Discharge Plan Discharge Items Patient Disposition: Home - Self-Care Reason For Visit: DYSPNEA Discharge Diagnosis: Hypoxia Activity: Per Instructions section Non-emergency contact: Primary Care Provider, [employer] and Broadcast Director Operations Call non-emergency contact if: your pain is worsening and your temperature is above 101 Follow-up/Referrals: Deborah Dong DO [Primary Care Provider] - 02/09/24 12:00 pm (With Valentine Ramírez PA-C) Diet: Low Sodium (2gm) Addtl Attending Provider Instructions: You were hospitalized for shortness of breath and low oxygen levels. The new worsening of shortness of breath and low oxygen is thought to be due to a number of factors. Low iron stores was one factor in the equation and we gave you iron infusions to help with this. Another reason was fluid at the base of your lungs that was pushing against the lungs. You had this fluid drained by the laboratory chemical assistant with subsequent relief of some of the shortness of breath. Another factor is aortic stenosis that you are known to have. This aortic stenosis likely contributed to the fluid accumulation in the lungs. We advised that the best way to help combat this would be to have a low sodium diet. As we discussed, please have up to 2,000mg of sodium per day. Please follow up with cardiology outpatient for further management of the aortic stenosis and please follow up with pulmonology outpatient. Please follow up with your primary care doctor within the next 7-14 days to ensure continuity in your care. Please return to the ER if you find you have worsening of the shortness of breath similar to this previous occurrance before coming into the hospital. Pending Studies at Discharge: No Stand-Alone Forms: My [facility], Smoking Cessation Medications and DC Order Prescriptions: Continued cholecalciferol (vitamin D3) 2,000 unit capsule 2,000 units PO QAM krill oil 500 mg capsule 500 mg PO QAM naloxone [Narcan] 4 mg/actuation spray,non-aerosol 4 mg INTRANASAL DIRECTED PRN (Reason: overdose) Qty: 2 0RF mirtazapine [Remeron] 15 mg tablet 15 mg PO HS Qty: 90 0RF duloxetine [Cymbalta] 60 mg capsule,delayed release(DR/EC) 120 mg PO QAM Qty: 180 0RF gabapentin 300 mg capsule 600 mg PO .COMPLEX Qty: 450 1RF Rx Instructions: 600 mg orally 2 PO qAM, 1 PO midday, 2 PO qhs; oxycodone-acetaminophen [Percocet] 7.5-325 mg tablet 1 tab PO Q6H PRN (Reason: pain) Qty: 90 0RF Rx Instructions: ONGOING THERAPY fentanyl 37.5 mcg/hour patch 72 hour 1 patch transdermal Q72H Qty: 10 0RF Rx Instructions: ONGOING THERAPY Jorge Luis 128 2 % drops 1 drp ophthalmic (eye) HS lansoprazole [Prevacid] 30 mg capsule,delayed release(DR/EC) 30 mg PO QAM Qty: 90 3RF aspirin [Adult Low Dose Aspirin] 81 mg tablet,delayed release (DR/EC) 81 mg PO Q2D ferrous sulfate [iron] 325 mg (65 mg iron) tablet 650 mg PO BID multivitamin Tablet 1 tab PO BID melatonin 3 mg tablet 3 mg PO HS vitamin B complex Tablet 1 tab PO QAM ascorbic acid (vitamin C) [Vitamin C] 500 mg tablet 1,000 mg PO BID nicotine (polacrilex) [Nicorette] 4 mg Gum 4 mg BUCCAL Q4H PRN (Reason: Nicotine Dependence) guar gum Packet 1 tbsp PO QAM Rx Instructions: mix into at least 4 oz water or juice before administering methenamine hippurate [Hiprex] 1 gram tablet 1 g PO .DAILY AT 1630 Rx Instructions: take 1 tablet by mouth daily AT 4:30PM Discharge Orders: Discharge Order (Routine); Ordered 02/03/24 Ordered By: Nando Amaya Admission Data Admit Date/Time: 02/01/24 02:11 Attending Provider: Miah Pardo Admit Provider: Adolfo Crawford Primary Care Provider: Deborah Dong Other Providers: Benny Pedraza; Javy Obrien; Marshal Connor; Scott Aiken; Thien Noe; Poncho Vidal; Ever Hoffmann Jr; Neil Tesfaye; Meeta Amaro; Sahara Gomez; Nando Nguyen; Nando Rodriguez; Mook Chiang; Amy Mercado; Lynnette Bobby; Kike Cole; Brayan Garcia; Rosalino Bianchi; Walter Gurrola; Danyel Hill; Sona Pham; Caron Powell; Preet Jean; Lynda Monte; Ashley Jacobsen; Caio Cabral; Clif Antonio; Erin King; Ernesto,No Attending; Jovanna Key Other Interventions: Discharge Summary Assessment (RN) Last Done: 02/03/24 12:53 Supervising Physician Co-Signing Physician Notes I personally examined the patient and verified all deshpande points of history and exam, discussed case, and agree with decision making with Dr Amaya Feeling good. Breathing well. Off oxygen. No dyspnea on exertion. Able to walk around. Would very much like to go home. Vitals noted, in general she is awake and alert pleasant no distress. HEENT normocephalic atraumatic mucous membranes moist. Breathing unlabored no accessory muscle use good effort. Skin shows no rashes no pallor or icterus. Neuro without focal deficits. Dyspnea/hypoxiaappears acutely to be due to acute on chronic diastolic CHFwhich in turn appears to be due to to a combination of severe aortic stenosis and high-output failure from her iron deficiency anemiaoverall improving. Appears to have improved most dramatically postthoracentesis. Stable for home, close outpatient follow-up both for ongoing management, as well as evaluation for possible TAVR. Otherwise as above.
--- NOTE | 2024-02-03 17:23 | Billing Data ---
Date of Service February 03, 2024 Coding Level of Care Code 08077 IN/OBS DISCH 30 MIN/LESS
== END 2024-02-03 15:05 | disposition home or self-care (01) | DRG 306 ==
LOC: ED 22:35 → 2E 02-01 02:11 → SUATTDRO 02-01 02:11 → 2E 02-01 03:30
DX: Z88.8 Allergy status to other drugs, medicaments and biological substances; I50.33 Acute on chronic diastolic (congestive) heart failure; F41.9 Anxiety disorder, unspecified; G47.00 Insomnia, unspecified; K21.9 Gastro-esophageal reflux disease without esophagitis; R07.9 Chest pain, unspecified; Z79.82 Long term (current) use of aspirin; C82.90 Follicular lymphoma, unspecified, unspecified site; E78.5 Hyperlipidemia, unspecified; F32.A Depression, unspecified; J18.9 Pneumonia, unspecified organism; R79.89 Other specified abnormal findings of blood chemistry; Z87.891 Personal history of nicotine dependence; J44.0 Chronic obstructive pulmonary disease with (acute) lower respiratory infection; Z79.899 Other long term (current) drug therapy; Z91.048 Other nonmedicinal substance allergy status; J90 Pleural effusion, not elsewhere classified; I35.0 Nonrheumatic aortic (valve) stenosis; G89.4 Chronic pain syndrome; Z88.2 Allergy status to sulfonamides; G62.9 Polyneuropathy, unspecified; R09.02 Hypoxemia; D50.9 Iron deficiency anemia, unspecified; Z91.040 Latex allergy status; I11.0 Hypertensive heart disease with heart failure; I24.89 Other forms of acute ischemic heart disease; R06.00 Dyspnea, unspecified

== ENCOUNTER 2024-04-06 12:38 | Inpatient (IN) ==
--- NOTE | 2024-04-06 12:49 | Emergency Department Note ---
ED Provider Note NAME: JAYLEEN BARRERA AGE: 78 SEX: F : 1945 ARRIVES VIA: Walk-In INFORMANT: [Patient][, ] prior records, triage note ED PROVIDER(S): [Eddie Arana MD] CHIEF COMPLAINT: [] MEDICAL DECISION MAKING: [] Discussion w/ other healthcare providers: [None] Prior /Outside records reviewed: Patient presents with fever and confusion. The patient did report to the emergency department yesterday where she reportedly had a fever at that time with associated headache and diarrhea. Patient did take Tylenol with improvement recently finished a 10-day course of Dificid for C. difficile. Patient reportedly still having diarrhea at that time. Patient was noted to have a lower blood pressure upon presentation but did seem to improve patient did have a CT of the abdomen pelvis at that time which showed colitis. Patient did receive IV fluids at the time of her presentation. Differential diagnosis: Infection, dehydration, metabolic abnormality, hypo/hyperglycemia, electrolyte imbalance, anemia, UTI, pneumonia, thyroid dysfunction among others were considered. Diagnostics, as interpreted by me: ECG: [none] Cardiac monitoring: An order was placed for continuous cardiac monitoring. The monitor shows a rate of [] with [] rhythm. [Patient was placed on pulse oximetry] Medical decision rules: [none] Imaging studies: [I informally interpreted the patient's [] with formal report to follow.] [] HPI: Patient presents due to concern for fever and confusion. Some of the history is provided by the daughter who is at bedside. She states that she was seen here last evening they went home were unable to provide a stool sample at that time he did have a fever last night. Patient did have a fever this morning as well as yesterday morning of 103.7. Patient did receive Tylenol both times. Patient reportedly had a bout of C. difficile about 4 years ago after an extended stay in rehab post [facility]. Patient completed a course of Dificid for C. difficile about 2 weeks ago was doing quite well and only had a recurrence of some of her symptoms in the last 36 hours. Patient denies any urgency frequency or dysuria. No blood in the urine or stool. The patient does have dark stools but states that she does have associated iron supplementation in the diet. Patient is supposed to have follow-up with [facility] tomorrow. 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 The patient did not take a probiotic. Patient is had about 6 or 7 bowel movements in the last 24 to 36 hours. They are loose in nature. No known sick contacts or recent travel. No changes in diet. The patient does admit admit to being fatigable. The daughter states that anytime that she has had a fever in the last 36 hours she has been confused although currently she is at her baseline. Patient denies any head or neck pain no chest pain or shortness of breath. No nausea vomiting. PAST MEDICAL HISTORY: [See Below] PAST SURGICAL HISTORY: [See Below] SOCIAL HISTORY: [See Below] HOME MEDICATIONS: [See Below] ALLERGIES: [See Below] VITALS: [See Below] PHYSICAL EXAMINATION: GENERAL: NAD, non-toxic. Wearing glasses. EYE EXAM: Normal conjunctiva. PERRL, no anisocoria and EOM's grossly intact w/o pain. OROPHARYNX: Moist mucus membranes, grossly normal dentition. NECK: Trachea midline, no stridor. [Supple, no nuchal rigidity, no adenopathy, non-tender. No signs of meningismus. FROM of the neck with good chin to chest and neck extension.] LUNGS: Clear to auscultation. Normal chest wall mechanics. HEART: NSR, systolic ejection murmur noted. ABDOMEN: Abdomen soft, non-tender, no masses, no rebound or guarding. BACK: No CVA TTP. SKIN: No rashes and no bruising. UPPER EXTREMITIES: Upper extremities are grossly normal. LOWER EXTREMITIES: Grossly normal, no edema. NEURO EXAM: A&O x3, cranial nerves II-XII grossly intact, normal speech, moves all 4 extremities. Past Med/Surg History Problem List Diarrhea (Acute) Aortic stenosis (Acute) Anemia (Acute) Severe aortic stenosis Carotid stenosis, bilateral Peripheral neuropathy Contact allergic reaction Port-A-Cath in place (01/28/23) Insertion of Access Port right IJ with Fluoroscopy(Right) - Chavo Hubbard DO, FACS Encounter for pre-operative examination Moderate to severe aortic stenosis Presence of intrathecal pump (Chronic) Battery has February 2021 Impaired fasting glucose (Chronic) Opioid dependence (Chronic) Tubular adenoma of colon (Chronic) Family history of colon cancer (Chronic) Chronic back pain Microcytic anemia Ambulatory dysfunction Pulmonary nodule Abnormal CT scan of lung Arthritis Thoracic aortic aneurysm Coronary artery calcification seen on CAT scan Chronic left hip pain (Acute) Chronic pain of lower extremity, bilateral Anemia (Acute) Moderate mitral regurgitation Persistent insomnia (Chronic) Lumbar canal stenosis (Chronic) Atherosclerosis of aorta (Chronic) follows with Dr. Connor Post laminectomy syndrome (Chronic) Medical History Shortness of breath Bilateral pleural effusion Elevated troponin Chest pain Exertional chest pain Chylothorax Anxiety disorder, unspecified Gastroparesis History of COVID-19 2019 > hospitalized at [facility] Hx of Clostridium difficile infection hx of 2 yrs ago and treated Pleural effusion moderate to large chronic pleural effusion, most recent imaging 01/09/[address] Recurrent UTI COPD (chronic obstructive pulmonary disease) MSSA (methicillin susceptible Staphylococcus aureus) infection (03/2021) Pneumonia due to 2019 novel coronavirus resolved UTI (urinary tract infection) chronic > preventative antibiotic on med list VRE infection (vancomycin resistant Enterococcus) hx of 2 yrs ago > resolved Leukocytosis NSTEMI (non-ST elevated myocardial infarction) pt unaware Mild aortic regurgitation Bacteremia due to Gram-negative bacteria Emphysema of lung Noted on chest CTs but not reported by patient. Presence of intrathecal pump not functioning, reason for Fentanyl patch Degenerative disc disease DVT (deep venous thrombosis) treated inpatient directly following knee replacement. no problems since. 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 and treating with Dr Moseley (oncology) Surgical History Previous back surgery none to cervical spine, x3 total History of colonoscopy History of laminectomy lumbar ~2013 Status post laminectomy with spinal fusion lumbar, 2007 & 2008 H/O cataract removal with insertion of prosthetic lens bilateral S/P hip replacement (2016) bilateral 2015, 2016 History of knee replacement procedure of right knee 2002 History of cholecystectomy 1977 Family History Father Abdominal aneurysm Colorectal cancer Grandmother (Paternal) Cancer Throat Other No family history of adverse response to anesthesia Denies family history of Ovarian cancer Prostate cancer Myocardial infarction Breast cancer Social History Smoking Status: Never smoker Tobacco Type: Cigarettes packs per day: 2; Second Hand Exposure: No; Do You Dip or Chew Tobacco: No; Hx Alcohol Use: No Hx Substance Use: No Preferred Language: Danish Communication Ability: Effective Visual Impairment: Limited Hearing Ability: Normal Transportation Project Manager Required: No Beliefs That Will Affect Care: None marital status: / Current Living Situation: Family current occupational status: retired How many Children do You have: 2 Feels Safe at Home: Yes Childhood Exposure to Second-Hand Smoke: Yes Diet: regular caffeine: Yes (drinks coffee daily ) during the past year weight has: decreased > 10 lbs Dental Care, Regularly: No Physical Activity Frequency: Does not Exercise Seatbelt Use: always Sunscreen Use: Yes Assistive Devices: Walker Allergies Allergies Allergy/AdvReac Type Severity Reaction Status Date / Time pollen extracts Allergy Intermediate ITCHY Verified 04/05/24 17:31 EYES, SNEEZING propolis (bee glue) Allergy Intermediate RASH FROM Verified 04/05/24 17:31 SURGICAL GLUE cellulose,oxidized Allergy Mild Rash Verified 04/05/24 17:31 [From Surgicel] latex Allergy Mild contact Verified 04/05/24 17:31 dermatitis nickel Allergy Mild contact Verified 04/05/24 17:31 dermatitis Sulfa (Sulfonamide Allergy Mild RASH Verified 04/05/24 17:31 Antibiotics) Home Meds Home Medications Medication Instructions Recorded Confirmed cholecalciferol (vitamin D3) 50 2,000 units PO QAM 07/27/18 04/05/24 mcg (2,000 unit) capsule multivitamin 1 tab PO BID 08/21/20 04/05/24 vitamin B complex 1 tab PO QAM 09/27/20 04/05/24 ascorbic acid (vitamin C) 500 mg 1,000 mg PO BID 12/28/20 04/05/24 tablet (Vitamin C) nicotine (polacrilex) 4 mg gum 4 mg buccal Q4H PRN Nicotine 02/08/21 04/05/24 (Nicorette) Dependence melatonin 3 mg tablet 3 mg PO HS 12/04/22 04/05/24 sodium chloride 2 % eye drops 1 drp ophthalmic (eye) HS 10/23/23 04/05/24 (Jorge Luis 128) ferrous sulfate 325 mg (65 mg 650 mg PO BID 01/26/24 04/05/24 iron) tablet (iron) methenamine hippurate 1 gram 1 g PO .DAILY AT 1630 02/01/24 04/05/24 tablet (Hiprex) guar gum 1 tbsp PO QAM PRN 03/03/24 04/05/24 gabapentin 600 mg tablet 600 mg PO TID 03/28/24 04/05/24 Previous Rx's Medication Instructions Recorded duloxetine 60 mg capsule,delayed 120 mg (2 x 60 mg) PO QAM #180 caps 03/16/23 release (Cymbalta) mirtazapine 15 mg tablet (Remeron) 15 mg PO HS #90 tabs 03/16/23 lansoprazole 30 mg capsule,delayed 30 mg PO QAM #90 caps 10/23/23 release (Prevacid) naloxone 4 mg/actuation nasal 4 mg intranasal DIRECTED PRN 11/30/23 spray (Narcan) overdose #2 ea triamterene 37.5 1 tab PO DAILY PRN weight gain #30 02/11/24 mg-hydrochlorothiazide 25 mg tablet tabs fidaxomicin 200 mg tablet 200 mg PO Q12H recurrent c diff 10 03/03/24 days #20 tabs vancomycin 125 mg capsule 125 mg PO BID 7 days #14 caps 03/03/24 oxycodone-acetaminophen 7.5 mg-325 1 tab PO Q6H PRN pain #90 tabs 03/09/24 mg tablet (Percocet) fentanyl 37.5 mcg/hour transdermal 1 patch transdermal Q72H #10 ea 03/29/24 patch Results & Data (ED) Vital Signs Vital Signs - 24 hr 04/06/24 12:41 04/06/24 13:01 04/06/24 13:05 Temperature 37.0 C 37.2 C Temperature Source Oral Oral Pulse Rate 91 H 87 Pulse Rate [Right Finger] 87 Pulse Rhythm [Right Finger] Regular Pulse Strength [Right Finger] Normal Respiratory Rate 20 20 Respiratory Effort / Characteristics Non-Labored Spontaneous Respiratory Depth Normal Respiratory Pattern Regular Blood Pressure 81/51 L Blood Pressure [Right Arm] 89/56 L Blood Pressure Mean 61 Blood Pressure Mean [Right Arm] 67 Blood Pressure Position [Right Arm] Semi-fowlers Pulse Oximetry 97 94 Oxygen Delivery Method Room Air Room Air Sepsis Recent Fever Within 48 Hours Yes Sepsis New/Unexplained Change in Mental Status N/A Sepsis Action Taken by Nursing No Action Required Laboratory Data 04/06/24 13:20 04/06/24 13:20 Lab Results 04/06/24 Range/Units 13:20 Lactate 1.8 (0.4-2.0) mmol/L Administered Medications Discontinued Medications Sodium Chloride (Nss) 500 mls @ 999 mls/hr IV .Q31M STA Stop: 04/06/24 13:32 Last Admin: 04/06/24 13:23 Dose: 999 mls/hr Documented By: MACEY Acetaminophen (Ofirmev) 1,000 mg in 100 mls @ 400 mls/hr IV NOW STA Stop: 04/06/24 13:16 Last Admin: 04/06/24 13:23 Dose: 400 mls/hr Documented By: MACEY Discharge Plan Visit Data Chief Complaint: Fever Stated Complaint: FEVER, CONFUSION ED Provider: Eddie Arana Forms Stand Alone Forms: [facility] Prescriptions Prescriptions: No Action cholecalciferol (vitamin D3) 2,000 unit capsule 2,000 units PO QAM naloxone [Narcan] 4 mg/actuation spray,non-aerosol 4 mg INTRANASAL DIRECTED PRN (Reason: overdose) Qty: 2 0RF gabapentin 600 mg tablet 600 mg PO TID mirtazapine [Remeron] 15 mg tablet 15 mg PO HS Qty: 90 0RF duloxetine [Cymbalta] 60 mg capsule,delayed release(DR/EC) 120 mg PO QAM Qty: 180 0RF oxycodone-acetaminophen [Percocet] 7.5-325 mg tablet 1 tab PO Q6H PRN (Reason: pain) Qty: 90 0RF Rx Instructions: ONGOING THERAPY fentanyl 37.5 mcg/hour patch 72 hour 1 patch transdermal Q72H Qty: 10 0RF Rx Instructions: ONGOING THERAPY Jorge Luis 128 2 % drops 1 drp ophthalmic (eye) HS lansoprazole [Prevacid] 30 mg capsule,delayed release(DR/EC) 30 mg PO QAM Qty: 90 3RF ferrous sulfate [iron] 325 mg (65 mg iron) tablet 650 mg PO BID triamterene-hydrochlorothiazid 37.5-25 mg tablet 1 tab PO DAILY PRN (Reason: weight gain) Qty: 30 2RF fidaxomicin 200 mg tablet 200 mg PO Q12H 10 Days Qty: 20 0RF vancomycin 125 mg capsule 125 mg PO BID 7 Days Qty: 14 0RF multivitamin Tablet 1 tab PO BID melatonin 3 mg tablet 3 mg PO HS vitamin B complex Tablet 1 tab PO QAM ascorbic acid (vitamin C) [Vitamin C] 500 mg tablet 1,000 mg PO BID nicotine (polacrilex) [Nicorette] 4 mg Gum 4 mg BUCCAL Q4H PRN (Reason: Nicotine Dependence) methenamine hippurate [Hiprex] 1 gram tablet 1 g PO .DAILY AT 1630 Rx Instructions: take 1 tablet by mouth daily AT 4:30PM guar gum Packet 1 tbsp PO QAM PRN Rx Instructions: mix into at least 4 oz water or juice before administering Referrals Referrals: Deborah Dong DO [Primary Care Provider] -
[2024-04-06] MEDS: SODIUM CHLORIDE 0.9% 500 ML IV STA (13:23)
[2024-04-06] MEDS: ACETAMINOPHEN 1,000 MG/100 ML VIAL IV STA (13:23)
[2024-04-06 13:41] LABS: Hematocrit (blood only) 35.4 % (37.0-47.0); Hemoglobin 11.3 g/dl (12.0-16.0); Mean Corpuscular Hgb Conc 31.9 g/dL (32.0-36.0); Mean Corpuscular Volume 84.5 fL (80.0-100.0); Mean Platelet Volume 11.2 fL (9.4-12.4); Platelet Count 198 K/uL (130-400); RDW Coefficient of Variation 16.1 % (11.5-14.5); RDW Standard Deviation 49.8 fL (36.4-46.3); Red Blood Count 4.19 M/uL (4.20-5.40)
[2024-04-06 13:54] LABS: Albumin Globulin Ratio 1.4 (0.9-2); Albumin Level 3.6 gm/dl (3.4-5.0); BUN Creatinine Ratio 21.6 (10-20); Bilirubin,Total 0.8 mg/dl (0.2-1.0); Calcium 8.5 mg/dl (8.6-10.3); Creatinine Clr Calc Pharmacy 43.6 ml/min; Est GFR (African American) 65.3 ml/min; Est GFR (Non-African American) 56.3 ml/min; Globulin 2.6 gm/dl (2.5-4.0); Potassium 3.5 mmol/L (3.5-5.1); Total Protein 6.2 gm/dl (6.0-8.3)
[2024-04-06 14:03] LABS: Basophils # (auto) 0.05 K/uL (0.00-0.20); Basophils % (auto) 0.6 %; Eosinophils # (auto) 0.01 K/uL (0.00-0.50); Eosinophils % (auto) 0.1 %; Immature Granulocytes # (auto) 0.05 K/uL (0.01-0.20); Immature Granulocytes % (auto) 0.6 %; Lymphocytes # (auto) 0.24 K/uL (1.20-3.40); Monocytes # (auto) 0.85 K/uL (0.11-0.59); Monocytes % (auto) 10.8 %; Neutrophils # (auto) 6.68 K/uL (1.40-6.50); Neutrophils % (auto) 84.9 %; White Blood Count 7.88 K/ul (4.8-10.8)
--- NOTE | 2024-04-06 14:06 | XRay Report ---
XR chest 1V portable CLINICAL HISTORY: Fever. COMPARISON STUDY: Chest CT March 10, 2024. Chest radiograph April 05, 2024. FINDINGS: Right internal jugular [id number] is in place. Low lung volumes are again noted with mil d elevation of the right hemidiaphragm. There is pulmonary vascular congestion. Trace right pleural e ffusion. No pneumothorax. No consolidation to suggest pneumonia. Right infrahilar opacity favors atel ectasis. IMPRESSION: 1. Pulmonary vascular congestion. Trace right pleural effusion. 2. No definite consolidation suggest pneumonia. ACT 112: Negative or not required by law. Electronically signed by: Jacob Trejo M.D. 04/06/2024 2:04 PM
[2024-04-06] MEDS: SODIUM CHLORIDE 0.9% 500 ML IV ONE ×2 (15:41→19:37)
--- NOTE | 2024-04-06 16:42 | History & Physical Report ---
Date of Service April 06, 2024 Assessment & Plan (1) Severe aortic stenosis: (2) Aortic stenosis: (3) Anemia: (4) Diarrhea: (5) Opioid dependence: Plan 78-year-old presents with C. difficile colitis, # Obtain stool sample Will start empiric treatment with vancomycin to 250 mg every 6 hours Tele appointment with [facility] # Chronic back pain Home meds # Severe aortic stenosis, awaiting TAVR procedure at [facility] avoid hypotension # depression continue home meds # GERD PEPCID History of Present Illness Chief Complaint: fever, diarrhea Primary Care Provider: Deborah Dong DO 78-year-old female with history of aortic stenosis, chronic back pain, recurrent C. difficile colitis, fecal transplant in 2019, who was recently treated for C. difficile colitis course of vancomycin , Dificid, completed treatment 2 weeks ago, presented to ER with recurrent diarrhea and fever yesterday, was given IV fluids, patient could not give a stool sample, CT abdomen pelvis consistent with colitis, was discharged home. Today she presents with 6-7 loose bowel movement over 24 hours, fever up to 103. Her stool is yellow and foul-smelling, resembling previous episodes of C. difficile colitis. She has an tele appointment with [facility] tomorrow. Denies abdominal pain, nausea or vomiting. Allergies Allergy/AdvReac Type Severity Reaction Status Date / Time pollen extracts Allergy Intermediate ITCHY Verified 04/05/24 17:31 EYES, SNEEZING propolis (bee glue) Allergy Intermediate RASH FROM Verified 04/05/24 17:31 SURGICAL GLUE cellulose,oxidized Allergy Mild Rash Verified 04/05/24 17:31 [From Surgicel] latex Allergy Mild contact Verified 04/05/24 17:31 dermatitis nickel Allergy Mild contact Verified 04/05/24 17:31 dermatitis Sulfa (Sulfonamide Allergy Mild RASH Verified 04/05/24 17:31 Antibiotics) Home Medications Medication Instructions Recorded Confirmed Type cholecalciferol (vitamin D3) 50 2,000 units PO QAM 07/27/18 04/05/24 History mcg (2,000 unit) capsule multivitamin 1 tab PO BID 08/21/20 04/05/24 History vitamin B complex 1 tab PO QAM 09/27/20 04/05/24 History ascorbic acid (vitamin C) 500 mg 1,000 mg PO BID 12/28/20 04/05/24 History tablet (Vitamin C) nicotine (polacrilex) 4 mg gum 4 mg buccal Q4H PRN Nicotine 02/08/21 04/05/24 History (Nicorette) Dependence melatonin 3 mg tablet 3 mg PO HS 12/04/22 04/05/24 History duloxetine 60 mg capsule,delayed 120 mg (2 x 60 mg) PO QAM #180 caps 03/16/23 04/05/24 Rx release (Cymbalta) mirtazapine 15 mg tablet (Remeron) 15 mg PO HS #90 tabs 03/16/23 04/05/24 Rx lansoprazole 30 mg capsule,delayed 30 mg PO QAM #90 caps 10/23/23 04/05/24 Rx release (Prevacid) sodium chloride 2 % eye drops 1 drp ophthalmic (eye) HS 10/23/23 04/05/24 History (Jorge Luis 128) naloxone 4 mg/actuation nasal 4 mg intranasal DIRECTED PRN 11/30/23 04/05/24 Rx spray (Narcan) overdose #2 ea ferrous sulfate 325 mg (65 mg 650 mg PO BID 01/26/24 04/05/24 History iron) tablet (iron) methenamine hippurate 1 gram 1 g PO .DAILY AT 1630 02/01/24 04/05/24 History tablet (Hiprex) triamterene 37.5 1 tab PO DAILY PRN weight gain #30 02/11/24 04/05/24 Rx mg-hydrochlorothiazide 25 mg tablet tabs fidaxomicin 200 mg tablet 200 mg PO Q12H recurrent c diff 10 03/03/24 04/05/24 Rx days #20 tabs guar gum 1 tbsp PO QAM PRN 03/03/24 04/05/24 History vancomycin 125 mg capsule 125 mg PO BID 7 days #14 caps 03/03/24 04/05/24 Rx oxycodone-acetaminophen 7.5 mg-325 1 tab PO Q6H PRN pain #90 tabs 03/09/24 04/05/24 Rx mg tablet (Percocet) gabapentin 600 mg tablet 600 mg PO TID 03/28/24 04/05/24 History fentanyl 37.5 mcg/hour transdermal 1 patch transdermal Q72H #10 ea 03/29/24 04/05/24 Rx patch Past Med/Surg History Problem List Diarrhea (Acute) Aortic stenosis (Acute) Anemia (Acute) Severe aortic stenosis Carotid stenosis, bilateral Peripheral neuropathy Contact allergic reaction Port-A-Cath in place (01/28/23) Insertion of Access Port right IJ with Fluoroscopy(Right) - Chavo Hubbard, DO, FACS Encounter for pre-operative examination Moderate to severe aortic stenosis Presence of intrathecal pump (Chronic) Battery has February 2021 Impaired fasting glucose (Chronic) Opioid dependence (Chronic) Tubular adenoma of colon (Chronic) Family history of colon cancer (Chronic) Chronic back pain Microcytic anemia Ambulatory dysfunction Pulmonary nodule Abnormal CT scan of lung Arthritis Thoracic aortic aneurysm Coronary artery calcification seen on CAT scan Chronic left hip pain (Acute) Chronic pain of lower extremity, bilateral Anemia (Acute) Moderate mitral regurgitation Persistent insomnia (Chronic) Lumbar canal stenosis (Chronic) Atherosclerosis of aorta (Chronic) follows with Dr. Connor Post laminectomy syndrome (Chronic) Medical History Shortness of breath Bilateral pleural effusion Elevated troponin Chest pain Exertional chest pain Chylothorax Anxiety disorder, unspecified Gastroparesis History of COVID-19 2019 > hospitalized at [facility] Hx of Clostridium difficile infection hx of 2 yrs ago and treated Pleural effusion moderate to large chronic pleural effusion, most recent imaging 01/09/[address] Recurrent UTI COPD (chronic obstructive pulmonary disease) MSSA (methicillin susceptible Staphylococcus aureus) infection (03/2021) Pneumonia due to 2019 novel coronavirus resolved UTI (urinary tract infection) chronic > preventative antibiotic on med list VRE infection (vancomycin resistant Enterococcus) hx of 2 yrs ago > resolved Leukocytosis NSTEMI (non-ST elevated myocardial infarction) pt unaware Mild aortic regurgitation Bacteremia due to Gram-negative bacteria Emphysema of lung Noted on chest CTs but not reported by patient. Presence of intrathecal pump not functioning, reason for Fentanyl patch Degenerative disc disease DVT (deep venous thrombosis) treated inpatient directly following knee replacement. no problems since. 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 and treating with Dr Moseley (oncology) Surgical History Previous back surgery none to cervical spine, x3 total History of colonoscopy History of laminectomy lumbar ~2013 Status post laminectomy with spinal fusion lumbar, 2007 & 2008 H/O cataract removal with insertion of prosthetic lens bilateral S/P hip replacement (2016) bilateral 2014, 2016 History of knee replacement procedure of right knee 2002 History of cholecystectomy 1977 Family History Father Abdominal aneurysm Colorectal cancer Grandmother (Paternal) Cancer Throat Other No family history of adverse response to anesthesia Denies family history of Ovarian cancer Prostate cancer Myocardial infarction Breast cancer Social History Smoking Status: Never smoker Tobacco Type: Cigarettes packs per day: 2; Second Hand Exposure: No; Do You Dip or Chew Tobacco: No; Hx Alcohol Use: No Hx Substance Use: No Preferred Language: Rwandan Communication Ability: Effective Visual Impairment: Limited Hearing Ability: Normal Tube Skiver Required: No Beliefs That Will Affect Care: None marital status: / Current Living Situation: Family current occupational status: retired How many Children do You have: 2 Feels Safe at Home: Yes Childhood Exposure to Second-Hand Smoke: Yes Diet: regular caffeine: Yes (drinks coffee daily ) during the past year weight has: decreased > 10 lbs Dental Care, Regularly: No Physical Activity Frequency: Does not Exercise Seatbelt Use: always Sunscreen Use: Yes Assistive Devices: Walker Review of Systems Review of Systems: All systems reviewed & are unremarkable except as noted in HPI & below Physical Exam Physical Exam: head atraumatic normocephalic neck supple chest CTA heart S1S2 regular, systolic murmur abdomen soft, nt, nd, bs peresnet extremities no clubbing , no cyanosis neuro AAO times 3 Results & Data Results & Data Vital Signs (Past 12 Hours) Vital Signs Temp Pulse Pulse Resp BP BP Pulse Ox 04/06/24 15:41 93/59 L 04/06/24 15:00 37.3 C 87 20 85/54 L 94 04/06/24 13:05 87 04/06/24 13:01 37.2 C 87 20 89/56 L 94 04/06/24 12:41 37.0 C 91 H 20 81/51 L 97 O2 Del Method 04/06/24 15:41 04/06/24 15:00 Room Air 04/06/24 13:05 04/06/24 13:01 Room Air 04/06/24 12:41 Room Air PG Care Time/CCT Total # of Minutes Spent Total Time Spent with Patient: Total time spent is greater than 50% in coordination of care (as documented) at patient's floor/unit and/or counseling patient: Coding Level of Care Code 75237 INT INP/OBS CARE 2/55MIN Diagnoses Severe aortic stenosis I35.0 Aortic stenosis I35.0 Anemia D64.9 Diarrhea R19.7 Diarrhea type: unspecified type Uncomplicated opioid dependence F11.20 Substance use status: uncomplicated (4) Diarrhea Diarrhea type: unspecified type Qualified Code(s): R19.7 - Diarrhea, unspecified (5) Opioid dependence Substance use status: uncomplicated Qualified Code(s): F11.20 - Opioid dependence, uncomplicated
[2024-04-06] MEDS: VANCOMYCIN HCL 125 MG/2.5ML SOLN PO STA (16:51)
[2024-04-06] MEDS: LACTATED RINGER'S 1,000 ML IV SCH (16:52)
[2024-04-06 18:41] LABS: Cdiff Toxin B Gene (2yr or >) Positive Cdiff Gene (Neg)
[2024-04-06 18:57] LABS: Adenovirus F 40/41 PCR Not Detected (NotDetected); Astrovirus PCR Not Detected (NotDetected); Campylobacter PCR Not Detected (NotDetected); Cryptosporidium PCR Not Detected (NotDetected); Cyclospora cayetanensis PCR Not Detected (NotDetected); Entamoeba histolytica PCR Not Detected (NotDetected); Enteroaggregative E.coli(EAEC) Not Detected (NotDetected); Enteropathogenic E.coli (EPEC) Not Detected (NotDetected); Enterotoxigenic E.coli (ETEC) Not Detected (NotDetected); Giardia lamblia PCR Not Detected (NotDetected); Norovirus GI/GII PCR Not Detected (NotDetected); Plesiomonas shigelloides PCR Not Detected (NotDetected); Rotavirus A PCR Not Detected (NotDetected); Salmonella PCR Not Detected (NotDetected); Sapovirus PCR Not Detected (NotDetected); Shiga-like Toxin E.coli (STEC) Not Detected (NotDetected); Shigella/Enteroinvasive E.coli Not Detected (NotDetected); Vibrio cholerae PCR Not Detected (NotDetected); Vibrio species PCR Not Detected (NotDetected); Yersinia enterocolitica PCR Not Detected (NotDetected)
[2024-04-06 19:07] LABS: Cdiff Antigen Positive; Cdiff Toxin A+B Negative Cdiff Toxin (Negative)
[2024-04-06] MEDS ORDERED: ONDANSETRON INJ 2 MG/ML 2 ML VIAL IV PRN (21:34)
[2024-04-06] MEDS ORDERED: ALUMINUM/MAGNESIUM SUSP 30 ML UDC PO PRN (21:34)
[2024-04-06] MEDS ORDERED: NICOTINE POLACRILEX 2 MG GUM MT PRN ×2 (21:39→21:40)
[2024-04-06 22:15] LABS: Hematocrit (blood only) 34.1 % (37.0-47.0); Hemoglobin 10.8 g/dl (12.0-16.0); Mean Corpuscular Hgb Conc 31.7 g/dL (32.0-36.0); Mean Corpuscular Volume 85.3 fL (80.0-100.0); Mean Platelet Volume 11.2 fL (9.4-12.4); Platelet Count 167 K/uL (130-400); RDW Coefficient of Variation 16.1 % (11.5-14.5); RDW Standard Deviation 50.5 fL (36.4-46.3); White Blood Count 7.21 K/ul (4.8-10.8)
[2024-04-06 22:17] LABS: Albumin Globulin Ratio 1.4 (0.9-2); Albumin Level 3.4 gm/dl (3.4-5.0); BUN Creatinine Ratio 23.1 (10-20); Bilirubin,Total 0.3 mg/dl (0.2-1.0); Creatinine Clr Calc Pharmacy 46.4 ml/min; Est GFR (African American) 70.5 ml/min; Est GFR (Non-African American) 60.9 ml/min; Globulin 2.4 gm/dl (2.5-4.0); Potassium 3.2 mmol/L (3.5-5.1); Total Protein 5.8 gm/dl (6.0-8.3)
[2024-04-06 22:37] LABS: Basophils # (auto) 0.07 K/uL (0.00-0.20); Eosinophils # (auto) 0.03 K/uL (0.00-0.50); Eosinophils % (auto) 0.4 %; Immature Granulocytes # (auto) 0.04 K/uL (0.01-0.20); Immature Granulocytes % (auto) 0.6 %; Lymphocytes % (auto) 6.9 %; Monocytes # (auto) 0.46 K/uL (0.11-0.59); Monocytes % (auto) 6.4 %; Neutrophils # (auto) 6.11 K/uL (1.40-6.50); Neutrophils % (auto) 84.7 %; Polychromasia 2+; Toxic Vacuolation 1+
[2024-04-06] MEDS: CHERRY SYRUP 5 ML UDP PO SCH (23:09)
[2024-04-06] MEDS: MIRTAZAPINE TAB 15 MG TAB PO SCH (23:09)
[2024-04-06] MEDS: MELATONIN 3 MG TAB PO SCH (23:09)
[2024-04-06] MEDS: GABAPENTIN 600 MG TAB PO SCH (23:09)
[2024-04-07] MEDS: VANCOMYCIN HCL 250 MG/5 ML SOLN PO SCH (00:11)
[2024-04-07] MEDS: CHECK FENTANYL PATCH PLACEMENT SCH (00:14)
[2024-04-07] MEDS: ACETAMINOPHEN 325 MG TAB PO PRN (00:26)
[2024-04-07 06:40] LABS: Albumin Globulin Ratio 1.3 (0.9-2); Albumin Level 3.2 gm/dl (3.4-5.0); Bilirubin,Total 0.3 mg/dl (0.2-1.0); Calcium 8.2 mg/dl (8.6-10.3); Creatinine Clr Calc Pharmacy 55.6 ml/min; Est GFR (African American) 87.7 ml/min; Est GFR (Non-African American) 75.7 ml/min; Globulin 2.5 gm/dl (2.5-4.0); Magnesium 1.8 mg/dl (1.7-2.4); Potassium 3.2 mmol/L (3.5-5.1); Total Protein 5.7 gm/dl (6.0-8.3)
[2024-04-07 07:02] LABS: Basophils # (auto) 0.03 K/uL (0.00-0.20); Basophils % (auto) 0.4 %; Dohle Bodies 2+; Eosinophils # (auto) 0.16 K/uL (0.00-0.50); Eosinophils % (auto) 2.3 %; Hematocrit (blood only) 34.6 % (37.0-47.0); Hemoglobin 11.1 g/dl (12.0-16.0); Immature Granulocytes # (auto) 0.03 K/uL (0.01-0.20); Immature Granulocytes % (auto) 0.4 %; Lymphocytes # (auto) 0.56 K/uL (1.20-3.40); Lymphocytes % (auto) 8.2 %; Mean Corpuscular Hemoglobin 27.1 pg (25.0-34.0); Mean Corpuscular Hgb Conc 32.1 g/dL (32.0-36.0); Mean Corpuscular Volume 84.4 fL (80.0-100.0); Mean Platelet Volume 11.6 fL (9.4-12.4); Monocytes # (auto) 0.56 K/uL (0.11-0.59); Monocytes % (auto) 8.2 %; Neutrophils # (auto) 5.47 K/uL (1.40-6.50); Neutrophils % (auto) 80.5 %; Ovalocytes 1+; Platelet Count 179 K/uL (130-400); RDW Coefficient of Variation 16.2 % (11.5-14.5); RDW Standard Deviation 50.1 fL (36.4-46.3); White Blood Count 6.81 K/ul (4.8-10.8)
--- NOTE | 2024-04-07 08:00 | Electrocardiogram Report ---
Test Reason : Blood Pressure : / mmHG Vent. Rate : 090 BPM Atrial Rate : 090 BPM P-R Int : 146 ms QRS Dur : 096 ms QT Int : 404 ms P-R-T Axes : 053 041 053 degrees QTc Int : 494 ms Sinus rhythm with Premature atrial complexes Nonspecific ST abnormality Anterolateral leads Prolonged QT Abnormal ECG When compared with ECG of 05-APR-2024 18:33, Premature ventricular complexes are no longer Present Premature atrial complexes are now Present Nonspecific ST abnormality now present Confirmed by Marshal Connor ([id number]) on 04/07/2024 8:00:37 AM Referred By: Deborah Dong Confirmed By:Marshal Connor
--- NOTE | 2024-04-07 08:50 | Hospitalist Progress Note ---
Date of Service April 07, 2024 Assessment & Plan (1) Diarrhea: Plan: 78-year-old presents with C. difficile colitis,recent ER visit 04/05 for diarrhea/abd pain and discharged home w/ ongoing fever/symptoms. CTAP at that time w/ L sade-colitis, infectious or inflammatory, L hydronephrosis without hydroureter suggesting degree of UPJ obstruction which may be chronic (urine cx preliminary without growth) --> per daughter, had been doing well but had recent admission for suspected pneumonia but was volume overloaded and given abx (and empiric vanco while on abx) but developed cdiff infection and just completed course of Dificid 2 weeks ago and had been doing well up until recently On admission, started empiric treatment with vancomycin to 250 mg every 6 hours Tele appointment with Deana MORALES for 04/07, was not able to complete as inpatient but mentioned about possible trial Reboyta? 04/07 Temp 38.1C overnight. Procalcitonin 6.28. Lactic 1.8 Blood culture NGTD LR @ 125cc decreased to 100cc given her aortic stenosis to prevent overload but still with ongoing diarrhea and 40meq KCl ordered this morning and will monitor electrolyte/replacement this afternoon Stool testing + cdiff gene but negative toxin. Stool PCR remainder of testing is negative. Added ova/parasite, giardia Vancomycin DISCONTINUED Dificid 200mg PO BID initiated and as discussed w/ daughter would opt for 200mg PO BID for now x 10 days followed by 200mg every other day for 20 days given recurrance Will consult ID while inpatient for additional recs/consideration for Reboyta as mentioned by telehealth however we do not carry at this time. Will NOT continue PPI, does not take any NSAIDs any longer and on fentanyl patch/gabapentin for pain at baseline and given cdiff/recurrance would avoid. Added pepcid once daily and can continue [facility]or labs/electrolyte replacement as needed (2) Severe aortic stenosis: Plan: # Severe aortic stenosis, awaiting TAVR procedure at [facility] Not on any diuretics/no hx CHF at baseline. On room air Reports having been seen by Deana and needing intervention in future. Denies any CP/SOB/syncope at this present time Avoid hypotension, BPs improved today/this afternoon 116/75 IVF decreased to 100cc/hr for now, no evidence for volume overload at present time Telemetry monitoring (3) Aortic stenosis: (4) Anemia: Plan: hgb around baseline, no active bleeding reported (5) Opioid dependence: (6) Post laminectomy syndrome: Plan: # Chronic back pain Continue home fentanyl patch, gabapentin TID, Cymbalta, oxycodone prn (7) Gastroesophageal reflux disease: Plan: On prevacid at baseline -- NOT new med, however not on NSAIDs any longer as above and would AVOID PPI given cdiff/recurrence ppi not continue on admission, pepcid added daily and can continue as needed # Depression Continue home gabapentin/Cymbalta/Remeron HS Plan continued inpatient stay, switched vanco PO to dificid as outlined and ID consult placed daughter updated at bedside (is drug rep, going to work on getting Dificid approved again, may need CM assistance and will f/u) Admission and Anticipated Discharge Date Admission Date: April 06, 2024 Supervising Physician Co-Signing Physician Notes The patient was not seen by me. The chart was reviewed. Case discussed with MAUDE Galarza. Agree with assessment and plan Subjective Eval in ER, C8, daughter at bedside. Continued diarrhea, not slowed very much since admission at all. No significant abdominal pain or nausea but reporting generalized bloating. Did have fever overnight. just got off 2 weeks Dificid, prior called and got for zero dollars! Daughter had contacted [employer] and was delivered in 3 days covered. Telehealth to be today, but unable to complete as was inpatient and rescheduled for outpatient. Had mentioned medication called Rebyota which can be given as enema with vancomycin at end of the course. Discussed will consult ID telehealth while inpatient but also switching back to Dificid for now given recs over Vanco and recurrence. Going to switch to Dificid for now --200 mg twice daily for 10 days or 200 mg twice daily for 5 days, followed by 200 mg once every other day for 20 days per UTD recs for recurrent infection unless otherwise recs by ID while inpatient. Repeating labs this afternoon/electrolyte replacement as needed. Nutrition consulted. Had been using pedialyte at home but daughter does report not the best about keeping up with PO intake. Remains on IVF but decreased rate given her . Denied any CP/SOB/syncope. Has been in discussion w/ [facility] about valve replacement in the future. Had been on Prevacid while on baby aspirin for GI protection. Discussed avoiding PPI w/o significant reflux and using Pepcid. Physical Exam Physical Exam: General: 78yo female laying in bed,daughter in room NAD, general pallor HEENT: atraumatic, normocephalic, mm slightly dry, trachea midline Resp: even/unlabored, no significant w/c/r, slightly diminished in the bases, on room air CV: RRR, SIGNIFICANT systolic murmur, S1, quiet S2, no significant LE edema/calf tenderness GI: +BS throughout, slight distension, no significant tenderness/guarding (generazlied cramping) : no focal MSK/Neuro: nonfocal, no slurred speech, answering questions appropriately Psych:AOx3, cooperative with exam Results & Data Results & Data Vital Signs (Past 12 Hours) Vital Signs Temp Pulse Pulse Pulse Resp BP BP 04/07/24 07:32 89 04/07/24 04:00 84 18 121/70 04/07/24 01:30 37.6 C 90 17 04/07/24 00:26 38.1 C H 90 16 117/73 04/06/24 23:00 98 H 04/06/24 21:00 87 13 102/62 BP Pulse Ox O2 Del Method 04/07/24 07:32 04/07/24 04:00 96 Room Air 04/07/24 01:30 99/62 L 94 Room Air 04/07/24 00:26 96 Room Air 04/06/24 23:00 04/06/24 21:00 97 Room Air Laboratory Results 04/07/24 04/06/24 04/06/24 Range/Units 05:54 21:24 16:46 WBC 6.81 7.21 (4.8-10.8) K/ul RBC 4.10 L 4.00 L (4.20-5.40) M/uL Hgb 11.1 L 10.8 L (12.0-16.0) g/dl Hct 34.6 L 34.1 L (37.0-47.0) % MCV 84.4 85.3 (80.0-100.0) fL MCH 27.1 27.0 (25.0-34.0) pg MCHC 32.1 31.7 L (32.0-36.0) g/dL RDW Std Deviation 50.1 H 50.5 H (36.4-46.3) fL RDW Coeff of Inge 16.2 H 16.1 H (11.5-14.5) % Plt Count 179 167 (130-400) K/uL MPV 11.6 11.2 (9.4-12.4) fL Immature Gran % (Auto) 0.4 0.6 % Neut % (Auto) 80.5 84.7 % Lymph % (Auto) 8.2 6.9 % Hill % (Auto) 8.2 6.4 % Eos % (Auto) 2.3 0.4 % Baso % (Auto) 0.4 1.0 % Neut # (Auto) 5.47 6.11 (1.40-6.50) K/uL Lymph # (Auto) 0.56 L 0.50 L (1.20-3.40) K/uL Hill # (Auto) 0.56 0.46 (0.11-0.59) K/uL Eos # (Auto) 0.16 0.03 (0.00-0.50) K/uL Baso # (Auto) 0.03 0.07 (0.00-0.20) K/uL Immature Gran # (Auto) 0.03 0.04 (0.01-0.20) K/uL Toxic Vacuolation 1+ Dohle Bodies 2+ Polychromasia 2+ Ovalocytes 1+ Sodium 137 138 (136-145) mmol/L Potassium 3.2 L 3.2 L (3.5-5.1) mmol/L Chloride 107 108 H (98-107) mmol/L Carbon Dioxide 25 24 (21-32) mmol/L Anion Gap 5 6 (3-11) BUN 19 21 (6-23) mg/dl Creatinine 0.76 0.91 (0.6-1.2) mg/dl Est Cr Clr Drug Dosing 55.6 46.4 ml/min Est GFR ( Amer) 87.7 70.5 ml/min Est GFR (Non-Af Amer) 75.7 60.9 ml/min BUN/Creatinine Ratio 25.0 H 23.1 H (10-20) Glucose 88 98 (70-99(Fasting)) mg/dl Lactate (0.4-2.0) mmol/L Calcium 8.2 L 8.0 L (8.6-10.3) mg/dl Magnesium 1.8 (1.7-2.4) mg/dl Total Bilirubin 0.3 0.3 D (0.2-1.0) mg/dl AST 42 H 44 H (13-39) U/L ALT 15 16 (7-52) U/L Alkaline Phosphatase 56 64 (34-104) U/L Total Protein 5.7 L 5.8 L (6.0-8.3) gm/dl Albumin 3.2 L 3.4 (3.4-5.0) gm/dl Globulin 2.5 2.4 L (2.5-4.0) gm/dl Albumin/Globulin Ratio 1.3 1.4 (0.9-2) Procalcitonin (0-0.5) ng/ml Stl C. cayetanensis PCR Not Detected (NotDetected) Stool Rotavirus A PCR Not Detected (NotDetected) Stl Adenov F 40/41 PCR Not Detected (NotDetected) Stool Astrovirus (PCR) Not Detected (NotDetected) Stool Campylobacter PCR Not Detected (NotDetected) Stl C. diff Tox B Gene Positive Cdiff Gene H (Neg) Stl C.difficile Tox A&B Negative Cdiff Toxin (Negative) Stool Cryptosporidium PCR Not Detected (NotDetected) Stl E.coli Shiga Tox PCR Not Detected (NotDetected) Stl Enterotoxigenic E PCR Not Detected (NotDetected) Stool EPEC (PCR) Not Detected (NotDetected) Stool EAEC (PCR) Not Detected (NotDetected) Stl E. histolytica PCR Not Detected (NotDetected) Stool Giardia Lamblia PCR Not Detected (NotDetected) Stool Salmonella PCR Not Detected (NotDetected) Stool Sapovirus (PCR) Not Detected (NotDetected) Stl P. shigelloides PCR Not Detected (NotDetected) Stl Shigella/EIEC PCR Not Detected (NotDetected) St Y.enterocolitica PCR Not Detected (NotDetected) Stool Vibrio (PCR) Not Detected (NotDetected) Stl Vibrio cholerae PCR Not Detected (NotDetected) Stl Norovirus GI/GII PCR Not Detected (NotDetected) 05/29/24 Range/Units 13:20 WBC 7.88 (4.8-10.8) K/ul RBC 4.19 L (4.20-5.40) M/uL Hgb 11.3 L (12.0-16.0) g/dl Hct 35.4 L (37.0-47.0) % MCV 84.5 (80.0-100.0) fL MCH 27.0 (25.0-34.0) pg MCHC 31.9 L (32.0-36.0) g/dL RDW Std Deviation 49.8 H (36.4-46.3) fL RDW Coeff of Inge 16.1 H (11.5-14.5) % Plt Count 198 (130-400) K/uL MPV 11.2 (9.4-12.4) fL Immature Gran % (Auto) 0.6 % Neut % (Auto) 84.9 % Lymph % (Auto) 3.0 % Hill % (Auto) 10.8 % Eos % (Auto) 0.1 % Baso % (Auto) 0.6 % Neut # (Auto) 6.68 H (1.40-6.50) K/uL Lymph # (Auto) 0.24 L (1.20-3.40) K/uL Hill # (Auto) 0.85 H (0.11-0.59) K/uL Eos # (Auto) 0.01 (0.00-0.50) K/uL Baso # (Auto) 0.05 (0.00-0.20) K/uL Immature Gran # (Auto) 0.05 (0.01-0.20) K/uL Toxic Vacuolation Dohle Bodies Polychromasia Ovalocytes Sodium 137 (136-145) mmol/L Potassium 3.5 (3.5-5.1) mmol/L Chloride 103 (98-107) mmol/L Carbon Dioxide 26 (21-32) mmol/L Anion Gap 8 (3-11) BUN 21 (6-23) mg/dl Creatinine 0.97 (0.6-1.2) mg/dl Est Cr Clr Drug Dosing 43.6 ml/min Est GFR ( Amer) 65.3 ml/min Est GFR (Non-Af Amer) 56.3 ml/min BUN/Creatinine Ratio 21.6 H (10-20) Glucose 96 (70-99(Fasting)) mg/dl Lactate 1.8 (0.4-2.0) mmol/L Calcium 8.5 L (8.6-10.3) mg/dl Magnesium (1.7-2.4) mg/dl Total Bilirubin 0.8 (0.2-1.0) mg/dl AST 38 (13-39) U/L ALT 18 (7-52) U/L Alkaline Phosphatase 62 (34-104) U/L Total Protein 6.2 (6.0-8.3) gm/dl Albumin 3.6 (3.4-5.0) gm/dl Globulin 2.6 (2.5-4.0) gm/dl Albumin/Globulin Ratio 1.4 (0.9-2) Procalcitonin 6.28 H (0-0.5) ng/ml Stl C. cayetanensis PCR (NotDetected) Stool Rotavirus A PCR (NotDetected) Stl Adenov F 40/41 PCR (NotDetected) Stool Astrovirus (PCR) (NotDetected) Stool Campylobacter PCR (NotDetected) Stl C. diff Tox B Gene (Neg) Stl C.difficile Tox A&B (Negative) Stool Cryptosporidium PCR (NotDetected) Stl E.coli Shiga Tox PCR (NotDetected) Stl Enterotoxigenic E PCR (NotDetected) Stool EPEC (PCR) (NotDetected) Stool EAEC (PCR) (NotDetected) Stl E. histolytica PCR (NotDetected) Stool Giardia Lamblia PCR (NotDetected) Stool Salmonella PCR (NotDetected) Stool Sapovirus (PCR) (NotDetected) Stl P. shigelloides PCR (NotDetected) Stl Shigella/EIEC PCR (NotDetected) St Y.enterocolitica PCR (NotDetected) Stool Vibrio (PCR) (NotDetected) Stl Vibrio cholerae PCR (NotDetected) Stl Norovirus GI/GII PCR (NotDetected) PG Care Time/CCT Total # of Minutes Spent Total Time Spent with Patient: Total time spent is greater than 50% in coordination of care (as documented) at patient's floor/unit and/or counseling patient: Coding Level of Care Code 90467 SUB INP/OBS CARE MIN Diagnoses Diarrhea R19.7 Diarrhea type: unspecified type Severe aortic stenosis I35.0 Aortic stenosis I35.0 Anemia D64.9 Uncomplicated opioid dependence F11.20 Substance use status: uncomplicated Post laminectomy syndrome M96.1 Gastroesophageal reflux disease K21.9 (1) Diarrhea Diarrhea type: unspecified type Qualified Code(s): R19.7 - Diarrhea, unspecified (5) Opioid dependence Substance use status: uncomplicated Qualified Code(s): F11.20 - Opioid dependence, uncomplicated
[2024-04-07] MEDS: VITAMIN B COMPLEX TAB PO SCH (08:55)
[2024-04-07] MEDS: DULoxetine HCL 60 MG CAP PO SCH (08:55)
[2024-04-07] MEDS: FERROUS SULFATE 325 MG TAB PO SCH (08:55)
[2024-04-07] MEDS: oxyCODONE/APAP 7.5/325MG TAB PO PRN (09:00)
[2024-04-07] MEDS: POTASSIUM CHLORIDE CRTAB 20 MEQ TABCR PO STA ×2 (09:02→16:35)
[2024-04-07] MEDS: MAGNESIUM SULFATE / D5W 1 GM/100 ML BAG IV ONE (09:03)
--- NOTE | 2024-04-07 13:46 | XCELERA ---
[id number]
[2024-04-07] MEDS: FIDAXOMICIN 200 MG TAB PO SCH (14:05)
[2024-04-07] MEDS: FAMOTIDINE 10 MG TABLET PO SCH (14:05)
--- NOTE | 2024-04-07 14:53 | Infectious Disease Consult ---
Date of Consultation April 07, 2024 Consultation Information This patient recommendation is based on a telemedicine consult request which was completed asynchronously through chart review and information provided by the primary physician. The patient was not seen or examined today. The evaluation is consultative in nature and all patient care and treatment decisions can either be accepted or rejected by the patient's primary hospital-based treating physician using their own independent medical judgment for their patient. [employer] contact information: Please call [facility] [phone]. (Phone Number For Physician Use Only) History of Present Illness Reason for Consultation: recurrent C diff Attending Physician: Mook Sprague MD Allergies Allergy/AdvReac Type Severity Reaction Status Date / Time pollen extracts Allergy Intermediate ITCHY Verified 04/05/24 17:31 EYES, SNEEZING propolis (bee glue) Allergy Intermediate RASH FROM Verified 04/05/24 17:31 SURGICAL GLUE cellulose,oxidized Allergy Mild Rash Verified 04/05/24 17:31 [From Surgicel] latex Allergy Mild contact Verified 04/05/24 17:31 dermatitis nickel Allergy Mild contact Verified 04/05/24 17:31 dermatitis Sulfa (Sulfonamide Allergy Mild RASH Verified 04/05/24 17:31 Antibiotics) Home Medications Medication Instructions Recorded Confirmed Type cholecalciferol (vitamin D3) 50 2,000 units PO QAM 07/27/18 04/06/24 History mcg (2,000 unit) capsule multivitamin 1 tab PO BID 08/21/20 04/06/24 History vitamin B complex 1 tab PO QAM 09/27/20 04/06/24 History ascorbic acid (vitamin C) 500 mg 1,000 mg PO BID 12/28/20 04/06/24 History tablet (Vitamin C) nicotine (polacrilex) 4 mg gum 4 mg buccal Q4H PRN Nicotine 02/08/21 04/06/24 History (Nicorette) Dependence duloxetine 60 mg capsule,delayed 120 mg (2 x 60 mg) PO QAM #180 caps 03/16/23 04/06/24 Rx release (Cymbalta) mirtazapine 15 mg tablet (Remeron) 15 mg PO HS #90 tabs 03/16/23 04/06/24 Rx lansoprazole 30 mg capsule,delayed 30 mg PO QAM #90 caps 10/23/23 04/06/24 Rx release (Prevacid) sodium chloride 2 % eye drops 1 drp ophthalmic (eye) HS 10/23/23 04/06/24 History (Jorge Luis 128) naloxone 4 mg/actuation nasal 4 mg intranasal DIRECTED PRN 11/30/23 04/06/24 Rx spray (Narcan) overdose #2 ea ferrous sulfate 325 mg (65 mg 650 mg PO BID 01/26/24 04/06/24 History iron) tablet (iron) methenamine hippurate 1 gram 1 g PO DAILY 02/01/24 04/06/24 History tablet (Hiprex) triamterene 37.5 1 tab PO DAILY PRN weight gain #30 02/11/24 04/06/24 Rx mg-hydrochlorothiazide 25 mg tablet tabs oxycodone-acetaminophen 7.5 mg-325 1 tab PO Q6H PRN pain #90 tabs 03/09/24 04/06/24 Rx mg tablet (Percocet) gabapentin 600 mg tablet 600 mg PO TID 03/28/24 04/06/24 History fentanyl 37.5 mcg/hour transdermal 1 patch transdermal Q72H #10 ea 03/29/24 04/06/24 Rx patch melatonin 5 mg tablet 5 mg PO HS 04/06/24 04/06/24 History Patient History Medical History Shortness of breath Bilateral pleural effusion Elevated troponin Chest pain Exertional chest pain Chylothorax Anxiety disorder, unspecified Gastroparesis History of COVID-19 2019 > hospitalized at [facility] Hx of Clostridium difficile infection hx of 2 yrs ago and treated Pleural effusion moderate to large chronic pleural effusion, most recent imaging 01/09/[address] Recurrent UTI COPD (chronic obstructive pulmonary disease) MSSA (methicillin susceptible Staphylococcus aureus) infection (03/2021) Pneumonia due to 2019 novel coronavirus resolved UTI (urinary tract infection) chronic > preventative antibiotic on med list VRE infection (vancomycin resistant Enterococcus) hx of 2 yrs ago > resolved Leukocytosis NSTEMI (non-ST elevated myocardial infarction) pt unaware Mild aortic regurgitation Bacteremia due to Gram-negative bacteria Emphysema of lung Noted on chest CTs but not reported by patient. Presence of intrathecal pump not functioning, reason for Fentanyl patch Degenerative disc disease DVT (deep venous thrombosis) treated inpatient directly following knee replacement. no problems since. 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 and treating with Dr Moseley (oncology) Surgical History Previous back surgery none to cervical spine, x3 total History of colonoscopy History of laminectomy lumbar ~2013 Status post laminectomy with spinal fusion lumbar, 2007 & 2008 H/O cataract removal with insertion of prosthetic lens bilateral S/P hip replacement (2016) bilateral 2015, 2016 History of knee replacement procedure of right knee 2002 History of cholecystectomy 1977 Family History Father Abdominal aneurysm Colorectal cancer Grandmother (Paternal) Cancer Throat Other No family history of adverse response to anesthesia Denies family history of Ovarian cancer Prostate cancer Myocardial infarction Breast cancer Social History Smoking Status: Former smoker Tobacco Type: Cigarettes packs per day: 2; Second Hand Exposure: No; Do You Dip or Chew Tobacco: No; Hx Alcohol Use: No Hx Substance Use: No Preferred Language: Amharic Communication Ability: Effective Visual Impairment: Limited Hearing Ability: Normal Slubber Operator Required: No Beliefs That Will Affect Care: None marital status: / Current Living Situation: Alone current occupational status: retired How many Children do You have: 2 Other Information That Helps Us Care for You: No Feels Safe at Home: Yes Safety Concerns: Feels Safe At This Time Childhood Exposure to Second-Hand Smoke: Yes Diet: regular caffeine: Yes (drinks coffee daily ) during the past year weight has: decreased > 10 lbs Dental Care, Regularly: No Physical Activity Frequency: Does not Exercise Seatbelt Use: always Sunscreen Use: Yes Assistive Devices: Walker Results & Data Vital Signs (Past 12 Hours) Vital Signs Pulse Pulse Resp BP BP Pulse Ox O2 Del Method 04/07/24 14:00 94 H 24 04/07/24 13:38 86 19 04/07/24 12:30 81 18 04/07/24 12:21 116/75 04/07/24 12:21 128 H 16 04/07/24 11:00 92 H 29 H 04/07/24 10:48 92 H 16 04/07/24 10:48 115/74 04/07/24 10:30 93 H 22 04/07/24 10:00 93 H 21 04/07/24 09:30 94 H 22 04/07/24 09:00 107 H 21 04/07/24 08:30 118 H 17 04/07/24 08:00 101 H 21 04/07/24 07:32 89 04/07/24 07:30 88 23 04/07/24 07:00 95 H 24 04/07/24 06:30 90 23 04/07/24 06:00 82 21 04/07/24 05:30 83 24 98 04/07/24 05:00 81 25 H 96 04/07/24 04:30 84 21 95 04/07/24 04:00 121/70 04/07/24 04:00 80 20 95 04/07/24 04:00 84 18 121/70 96 Room Air 04/07/24 03:30 79 21 96 04/07/24 03:00 87 18
[2024-04-07 15:07] LABS: BUN Creatinine Ratio 22.9 (10-20); Calcium 8.6 mg/dl (8.6-10.3); Creatinine Clr Calc Pharmacy 60.4 ml/min; Est GFR (African American) 96.9 ml/min; Est GFR (Non-African American) 83.6 ml/min; Magnesium 1.9 mg/dl (1.7-2.4); Potassium 3.6 mmol/L (3.5-5.1)
--- NOTE | 2024-04-07 15:57 | Infectious Disease Consult ---
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 Initially seen in the ED on 04/05, and had a CTAP which showed left sade-colitis. She was unable to give stool sample and was discharged with outpatient follow up. She returned on 04/06 due to ongoing sympto ms with 6-7 BMs/day. Here, she has been febrile, tachycardic. BP initially in the 80s but improved. WBC wnl. Cr 0.91, AST 40s. PCT 6.28. GIPP with C diff gene positive, toxin negative (prior tests with toxin A positive). CXR with pulmonary vascular congestion. CT head negative. TTE with severe , EF 55-60%. She was initially started on PO vanc which has now been changed to fidaxomicin. ID consulted 04/07. Regarding diagnosis, her stool test is NAAT positive for toxin gene but negative for Toxin. I spoke to micro lab and GDH is positive. In the setting of diarrhea and patients history, I would consider this as recurrent C diff infection. Abx were changed to fidaxomicin which is reasonable given that she didnt improve with PO vanc in February. I did discuss fecal transplant options and it seems there were discussions with Deana about getting Rebyota. Family states they have been transferred to [facility] in the past from [facility] for transplant and inquiring if this is possible, which isnt unreasonable from my perspective. Will continue on current regimen. I did also discuss bezlotuxumab as an adjunctive therapy. Spoke with pharmacy and they said it can be ordered and costs about $700-900. I would ensure that their insurance covers this prior to proceeding and unless there are plans for transfer. # Recurrent C diff infection # h/o prior fecal transplant # H/o severe - continue fidaxomicin 200mg PO twice daily - would have case management check if bezlotuxumab is covered by insurance and if so, would favor administration with antibiotics - consider discussions with [facility] for consideration of FMT (family asking for transfer) ID will continue to follow. If questions or concerns, contact Infectious Disease Call Center . Maryann Martinez MD [facility], Division of Infectious Diseases [facility]: [phone] Consultation Information Consultation was provided via telemedicine using two-way real-time interactive t elecommunication between the patient and the telemedicine provider. For the duration of the visit, the provider was performing the assessment from a different facility than the patient. This includesuse of bluetooth stethoscope forauscultationperformed by the telepresenter that the telemedicine provider can hear if described in the physical exam. [employer] contact information: Please call [facility] Call Center [phone]. (Phone Number For Physician Use Only) After establishing a telemedicine visit, patient was: Patient was verified with two unique identifiers, Patient/authorized rep acknowledged consent and understanding and Gave permission to continue telehealth session Time Spent with Patient: Initial => 75 min History of Present Illness Reason for Consultation: recurrent C diff Attending Physician: Mook Sprague MD History of Present Illness 78yo F with h/o severe aortic stenosis awaiting TAVR at [facility], chronic back pain, follicular lymphoma, COPD, peripheral neuropathy, pleural effusion, recurrent C diff colitis, fecal transplant in 2019, recently treated for C diff with tx completed 2 weeks ago who presented on 04/06 with recurrent diarrhea and fever. She was admitted 01/31-02/02 with SOB (got a day of abx for possible PNA, but this was stopped). She was seen by her PCP On 03/02 and per note, it seemed she had a diagnosis of C diff around that time and had completed a course of PO vanc x 10d but symptoms were still present. On the 03/02 visit, she was prescribed fidaxomicin x 10d with referral to GI and ID. She saw PCP again on 04/05 at which time she reported that the C diff had cleared up, however she had another episode of diarrhea that day along with fever to 103. She was sent to the ED due to low BPs that were noted. In the ED on 04/05, she had a CTAP which showed left sade-colitis. She was unable to give stool sample and was discharged with outpatient follow up. She returned on 04/06 due to ongoing symptoms with 6-7 BMs/day. Here, she has been febrile, tachycardic. BP initially in the 80s but improved. WBC wnl. Cr 0.91, AST 40s. PCT 6.28. GIPP with C diff gene positive, GDH positive, toxin negative (prior tests with toxin A positive). CXR with pulmonary vascular congestion. CT head negative. TTE with severe , EF 55-60%. She was initially started on PO vanc which has now been changed to fidaxomicin. ID consulted 04/07. On evaluation, patient reports that she had no resolution of her symptoms after her first course of PO vanc and so dificid was started immediately afterwards. After that course, diarrhea resolved but recurred 7-10days later, on 04/03. She does not have any abdominal pain. No nausea or vomiting. No rashes, leg swelling or shortness of breath. She says she has had 2 fecal transplants before, the first time she had recurrence a few weeks later. Allergies Allergy/AdvReac Type Severity Reaction Status Date / Time pollen extracts Allergy Intermediate ITCHY Verified 04/05/24 17:31 EYES, SNEEZING propolis (bee glue) Allergy Intermediate RASH FROM Verified 04/05/24 17:31 SURGICAL GLUE cellulose,oxidized Allergy Mild Rash Verified 04/05/24 17:31 [From Surgicel] latex Allergy Mild contact Verified 04/05/24 17:31 dermatitis nickel Allergy Mild contact Verified 04/05/24 17:31 dermatitis Sulfa (Sulfonamide Allergy Mild RASH Verified 04/05/24 17:31 Antibiotics) Home Medications Medication Instructions Recorded Confirmed Type cholecalciferol (vitamin D3) 50 2,000 units PO QAM 07/27/18 04/06/24 History mcg (2,000 unit) capsule multivitamin 1 tab PO BID 08/21/20 04/06/24 History vitamin B complex 1 tab PO QAM 09/27/20 04/06/24 History ascorbic acid (vitamin C) 500 mg 1,000 mg PO BID 12/28/20 04/06/24 History tablet (Vitamin C) nicotine (polacrilex) 4 mg gum 4 mg buccal Q4H PRN Nicotine 02/08/21 04/06/24 History (Nicorette) Dependence duloxetine 60 mg capsule,delayed 120 mg (2 x 60 mg) PO QAM #180 caps 03/16/23 04/06/24 Rx release (Cymbalta) mirtazapine 15 mg tablet (Remeron) 15 mg PO HS #90 tabs 03/16/23 04/06/24 Rx lansoprazole 30 mg capsule,delayed 30 mg PO QAM #90 caps 10/23/23 04/06/24 Rx release (Prevacid) sodium chloride 2 % eye drops 1 drp ophthalmic (eye) HS 10/23/23 04/06/24 History (Jorge Luis 128) naloxone 4 mg/actuation nasal 4 mg intranasal DIRECTED PRN 11/30/23 04/06/24 Rx spray (Narcan) overdose #2 ea ferrous sulfate 325 mg (65 mg 650 mg PO BID 01/26/24 04/06/24 History iron) tablet (iron) methenamine hippurate 1 gram 1 g PO DAILY 02/01/24 04/06/24 History tablet (Hiprex) triamterene 37.5 1 tab PO DAILY PRN weight gain #30 02/11/24 04/06/24 Rx mg-hydrochlorothiazide 25 mg tablet tabs oxycodone-acetaminophen 7.5 mg-325 1 tab PO Q6H PRN pain #90 tabs 03/09/24 04/06/24 Rx mg tablet (Percocet) gabapentin 600 mg tablet 600 mg PO TID 03/28/24 04/06/24 History fentanyl 37.5 mcg/hour transdermal 1 patch transdermal Q72H #10 ea 03/29/24 04/06/24 Rx patch melatonin 5 mg tablet 5 mg PO HS 04/06/24 04/06/24 History fidaxomicin 200 mg tablet (Dificid) See Rx Instructions PO Q OTHER DAY 04/07/24 Rx #30 tabs Patient History Medical History Shortness of breath Bilateral pleural effusion Elevated troponin Chest pain Exertional chest pain Chylothorax Anxiety disorder, unspecified Gastroparesis History of COVID-19 2019 > hospitalized at [facility] Hx of Clostridium difficile infection hx of 2 yrs ago and treated Pleural effusion moderate to large chronic pleural effusion, most recent imaging 01/09/[address] Recurrent UTI COPD (chronic obstructive pulmonary disease) MSSA (methicillin susceptible Staphylococcus aureus) infection (03/2021) Pneumonia due to 2019 novel coronavirus resolved UTI (urinary tract infection) chronic > preventative antibiotic on med list VRE infection (vancomycin resistant Enterococcus) hx of 2 yrs ago > resolved Leukocytosis NSTEMI (non-ST elevated myocardial infarction) pt unaware Mild aortic regurgitation Bacteremia due to Gram-negative bacteria Emphysema of lung Noted on chest CTs but not reported by patient. Presence of intrathecal pump not functioning, reason for Fentanyl patch Degenerative disc disease DVT (deep venous thrombosis) treated inpatient directly following knee replacement. no problems since. 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 and treating with Dr Moseley (oncology) Surgical History Previous back surgery none to cervical spine, x3 total History of colonoscopy History of laminectomy lumbar ~2013 Status post laminectomy with spinal fusion lumbar, 2007 & 2008 H/O cataract removal with insertion of prosthetic lens bilateral S/P hip replacement (2016) bilateral 2015, 2016 History of knee replacement procedure of right knee 2001 History of cholecystectomy 1977 Family History Father Abdominal aneurysm Colorectal cancer Grandmother (Paternal) Cancer Throat Other No family history of adverse response to anesthesia Denies family history of Ovarian cancer Prostate cancer Myocardial infarction Breast cancer Social History Smoking Status: Former smoker Tobacco Type: Cigarettes packs per day: 2; Second Hand Exposure: No; Do You Dip or Chew Tobacco: No; Hx Alcohol Use: No Hx Substance Use: No Preferred Language: Syriac Communication Ability: Effective Visual Impairment: Limited Hearing Ability: Normal Bark Skinner Required: No Beliefs That Will Affect Care: None marital status: / Current Living Situation: Alone current occupational status: retired How many Children do You have: 2 Feels Safe at Home: Yes Childhood Exposure to Second-Hand Smoke: Yes Diet: regular caffeine: Yes (drinks coffee daily ) during the past year weight has: decreased > 10 lbs Dental Care, Regularly: No Physical Activity Frequency: Does not Exercise Seatbelt Use: always Sunscreen Use: Yes Assistive Devices: Walker Review of System 10-point review of systems reviewed and are negative except for as above. Physical Exam Physical Exam: General: Awake, alert, no acute distress HEENT: NC/AT, EOMI, mmm Neck: supple Lungs: respirations non-labored Heart: nl peripheral perfusion Abdomen: soft, nondistended, minimally tender Ext: no LE edema Skin: no rash Neuro: moving all extremities Results & Data Vital Signs (Past 12 Hours) Vital Signs Pulse Pulse Resp BP BP Pulse Ox O2 Del Method 04/07/24 14:00 94 H 24 04/07/24 13:38 86 19 04/07/24 12:30 81 18 04/07/24 12:21 116/75 04/07/24 12:21 128 H 16 04/07/24 11:00 92 H 29 H 04/07/24 10:48 92 H 16 04/07/24 10:48 115/74 04/07/24 10:30 93 H 22 04/07/24 10:00 93 H 21 04/07/24 09:30 94 H 22 04/07/24 09:00 107 H 21 04/07/24 08:30 118 H 17 04/07/24 08:00 101 H 21 04/07/24 07:32 89 04/07/24 07:30 88 23 04/07/24 07:00 95 H 24 04/07/24 06:30 90 23 04/07/24 06:00 82 21 04/07/24 05:30 83 24 98 04/07/24 05:00 81 25 H 96 04/07/24 04:30 84 21 95 04/07/24 04:00 121/70 04/07/24 04:00 80 20 95 04/07/24 04:00 84 18 121/70 96 Room Air Laboratory Results Labs reviewed. Diagnostic Findings Imaging reviewed. (1) Diarrhea Diarrhea type: unspecified type Qualified Code(s): R19.7 - Diarrhea, unspecified
[2024-04-07] MEDS: SODIUM CHLORIDE 5% OP SOLN 15 ML BTL OP SCH (21:02)
[2024-04-08 07:17] LABS: Hematocrit (blood only) 28.6 % (37.0-47.0); Hemoglobin 9.1 g/dl (12.0-16.0); Mean Corpuscular Hemoglobin 26.7 pg (25.0-34.0); Mean Corpuscular Hgb Conc 31.8 g/dL (32.0-36.0); Mean Corpuscular Volume 83.9 fL (80.0-100.0); Mean Platelet Volume 10.9 fL (9.4-12.4); Platelet Count 164 K/uL (130-400); RDW Coefficient of Variation 16.2 % (11.5-14.5); RDW Standard Deviation 49.3 fL (36.4-46.3); Red Blood Count 3.41 M/uL (4.20-5.40); White Blood Count 4.69 K/ul (4.8-10.8)
[2024-04-08 07:43] LABS: Albumin Globulin Ratio 1.3 (0.9-2); Albumin Level 2.8 gm/dl (3.4-5.0); BUN Creatinine Ratio 19.4 (10-20); Bilirubin,Total 0.2 mg/dl (0.2-1.0); Calcium 8.2 mg/dl (8.6-10.3); Creatinine Clr Calc Pharmacy 58.9 ml/min; Est GFR (African American) 93.6 ml/min; Est GFR (Non-African American) 80.8 ml/min; Globulin 2.1 gm/dl (2.5-4.0); Magnesium 1.8 mg/dl (1.7-2.4); Potassium 3.7 mmol/L (3.5-5.1); Total Protein 4.9 gm/dl (6.0-8.3)
--- NOTE | 2024-04-08 07:50 | Hospitalist Progress Note ---
Date of Service April 08, 2024 Assessment & Plan (1) Diarrhea: Plan: 78-year-old presents with C. difficile colitis,recent ER visit 04/05 for diarrhea/abd pain and discharged home w/ ongoing fever/symptoms. CTAP at that time w/ L sade-colitis, infectious or inflammatory, L hydronephrosis without hydroureter suggesting degree of UPJ obstruction which may be chronic (urine cx preliminary without growth) --> per daughter, had been doing well but had recent admission for suspected pneumonia but was volume overloaded and given abx (and empiric vanco while on abx) but developed cdiff infection and just completed course of Dificid 2 weeks ago and had been doing well up until recently Temp 38.1C overnight on admission, nothing further. Lactic 1.8. Procalcitonin 6.28. Stool testing + cdiff gene but negative toxin -- given fever/abd pain/diarrhea, considered recurrent infection (also confirmed w/ ID, consulted) Stool PCR remainder of testing is negative. Added ova/parasite, giardia, pending Initially placed on PO Vancomycin however given lack of efficacy prior--> switched to Dificid 200mg PO BID 5/30 AM and planned for 10 day BID then 20 day qod ID consulted -given diarrhea/fever/hypotension, would treat as recurrent cdiff infection. Consideration for tx to [facility] for inpatient fecal transplant was discussed. Did discuss patient with Dr Ramirez from [facility] about potential transfer. No inpatient fecal transplant/need for transfer at this time and rec to continue the switch to Dificid and complete the 10mg BID x 10 days and then 200mg qod x 20 days given recurrence and he will message Vika Reddy (who patient previously following) about arranging for the Rebyota in next 3 weeks once at end of her taper * per patient, did get call this AM from [facility] and sending form to her house to confirm income and get process for the Rebyota approved (38,000$ medication) which should be given 24-72 hours following completion of treatment * Daughter also contacted PCP and they sent for her dificid per my re commendations and hopefully will be delivered this weekend and can consider dc when received SIGNIFICANT IMPROVEMENT -reports diarrhea slowed/no further overnight. WBC stable/no further fevers since admission. BCx NGTD, tolerating advancement of diet and slept well BCx remain NGTD IVF to be discontinued this afternoon at lunch, BP stable 115/70. BUN/Cr stable. Electrolytes stable/improved Nutrition on consult/supplements to be provided Plan to continue Dificid course with 200mg PO BID x 10 days followed by 200mg qod x 20 days given recurrence (start date 04/07) Can dc this weekend once Dificid received Updated daughter regarding plan (2) Severe aortic stenosis: Plan: # Severe aortic stenosis, awaiting TAVR procedure at [place] Not on any diuretics/no hx CHF at baseline. No increased LE/SOB, no syncope/lightheadedness reported AVOID hypotension, IVF as above and BP stable and diarrheal/losses slowed/revoled as above ECHO obtained, significant murmur -->Compared with 07/21/2023 study, severity of aortic stenosis has progressed, significant mitral regurgitation and mild pulmonary hypertension now seen. The left ventricle is borderline dilated. LV systolic function is normal EF 55- 60%. LV wall motion is normal. Moderate cLVH. Diastolic dysfunction grade III, restrictive pattern, consistent with markedly increased LA pressure. SEVERE calcific aortic valve stenosis, 0.6cm squared, severe mitral regurgitation, RVSP elevated at 30-40mmhG. Reports having been seen by [facility] [place] and needing intervention in future. and will need continued f/u once over her cdiff infection Continue to monitor volume status (3) Aortic stenosis: Plan: As above, SEVERE, also with mitral regurgitation from such. Outpt f/u for TAVR at [facility] (4) Anemia: Plan: hgb around baseline, no active bleeding reported and had been on copious IVF for BP support/diarrheal losses which have improved as above IVF to dc this afternoon and will monitor (5) Post laminectomy syndrome: Plan: # Chronic back pain Continue home fentanyl patch, gabapentin TID, Cymbalta, oxycodone prn (6) Opioid dependence: Plan: continue home meds (7) Gastroesophageal reflux disease: Plan: On prevacid at baseline -- NOT new med, however not on NSAIDs any longer as above and would AVOID PPI given cdiff/recurrence -- DISCONTINUE at dc recommended and discussed with patient/daughter prior thankfully PPI not continued on admission, added pepcid daily and would prefer this over PPI given cdiff/recurrance as above # Depression Continue home gabapentin/Cymbalta/Remeron HS Plan continued inpatient stay on Dificid will consult PT while inpatient for completeness waiting for approved/delivered at home but likely able to dc once received as MUCH improved daughter updated, will need outpt f/u GI C and Rebyota once completed Dificid course Admission and Anticipated Discharge Date Admission Date: April 06, 2024 Supervising Physician Co-Signing Physician Notes The patient was not seen by me. The chart was reviewed. Case discussed with MAUDE Galarza. Agree with assessment and plan Subjective Evaluated this morning, doing well. Able to sleep overnight. BP stable, IVF decreased. No further diarrhea overnight and reports thinks had some forming of stool this morning after breakfast, on upgraded diet. She got a call from [facility] this morning about the Rebyota and they are to be sending her form to complete once able to confirm her gross income. Discussed dificid course and will work on getting approved. TO get supplements with her afternoon trays. Discussed possible dc tomorrow if continues to do well but wanting to make sure everything arranged. No CP/SOB reported, no lightheaded/dizziness. Call to daughter Radha for update on plan-- she reports she already contacted Dr Dong's office and they have sent in req for the dificid. Did not get notified last time of shipment , just approval and will continue inpatient stay until delivered and daughter will be checking mail and can dc over weekend once received to ensure Ms Henry has continued treatment at discharge to complete the course. Confirmed dosing BID x 10 days followed by every other day for 20 da ys. Questions/concerns addressed at this time Physical Exam Physical Exam: General: 78yo female sitting up in bed, reading paper, NAD, appears much improved HEENT: atraumatic, normocephalic, mm improved, trachea midline port to R chest, covered, no evidence for infection Resp: even/unlabored, no significant w/c/r, slightly diminished in the bases, on room air 94% CV: RRR, SIGNIFICANT systolic murmur, S1, quiet S2, no significant LE edema/calf tenderness GI: +BS throughout, less hyperactive, less distension, soft/nontender : no focal MSK/Neuro: nonfocal, no slurred speech, answering questions appropriately Psych:AOx3, cooperative with exam Results & Data Results & Data Vital Signs (Past 12 Hours) Vital Signs Temp Pulse Pulse Resp BP Pulse Ox O2 Del Method 04/08/24 03:07 36.6 C 72 18 128/77 95 Room Air 04/07/24 23:30 85 04/07/24 22:51 37.0 C 70 18 122/74 94 Room Air Laboratory Results 04/08/24 04/07/24 04/07/24 Range/Units 06:37 Unknown 14:28 WBC 4.69 L (4.8-10.8) K/ul RBC 3.41 L (4.20-5.40) M/uL Hgb 9.1 L (12.0-16.0) g/dl Hct 28.6 L (37.0-47.0) % MCV 83.9 (80.0-100.0) fL MCH 26.7 (25.0-34.0) pg MCHC 31.8 L (32.0-36.0) g/dL RDW Std Deviation 49.3 H (36.4-46.3) fL RDW Coeff of Inge 16.2 H (11.5-14.5) % Plt Count 164 (130-400) K/uL MPV 10.9 (9.4-12.4) fL Sodium 141 137 (136-145) mmol/L Potassium 3.7 3.6 (3.5-5.1) mmol/L Chloride 111 H 108 H (98-107) mmol/L Carbon Dioxide 27 25 (21-32) mmol/L Anion Gap 3 4 (3-11) BUN 14 16 (6-23) mg/dl Creatinine 0.72 0.70 (0.6-1.2) mg/dl Est Cr Clr Drug Dosing 58.9 60.4 ml/min Est GFR ( Amer) 93.6 96.9 ml/min Est GFR (Non-Af Amer) 80.8 83.6 ml/min BUN/Creatinine Ratio 19.4 22.9 H (10-20) Glucose 86 112 H (70-99(Fasting)) mg/dl Calcium 8.2 L 8.6 (8.6-10.3) mg/dl Magnesium 1.8 1.9 (1.7-2.4) mg/dl Total Bilirubin 0.2 (0.2-1.0) mg/dl AST 24 (13-39) U/L ALT 12 (7-52) U/L Alkaline Phosphatase 53 (34-104) U/L Total Protein 4.9 L (6.0-8.3) gm/dl Albumin 2.8 L (3.4-5.0) gm/dl Globulin 2.1 L (2.5-4.0) gm/dl Albumin/Globulin Ratio 1.3 (0.9-2) Stool Comments Pending Giardia Antigen Pending Diagnostic Findings ECHOCARDIOGRAM 04/07/2024 Compared with 07/21/2023 study, severity of aortic stenosis has progressed, significant mitral regurgitation and mild pulmonary hypertension now seen. The left ventricle is borderline dilated. LV systolic function is normal EF 55- 60%. LV wall motion is normal. Moderate cLVH. Diastolic dysfunction grade III, restrictive pattern, consistent with markedly increased LA pressure. SEVERE calcific aortic valve stenosis, 0.6cm squared, severe mitral regurgitation, RVSP elevated at 30-40mmhG. PG Care Time/CCT Total # of Minutes Spent Total Time Spent with Patient: Total time spent is greater than 50% in coordination of care (as documented) at patient's floor/unit and/or counseling patient: Coding Level of Care Code 13097 SUB INP/OBS CARE 50MIN Diagnoses Diarrhea R19.7 Diarrhea type: unspecified type Severe aortic stenosis I35.0 Aortic stenosis I35.0 Anemia D64.9 Post laminectomy syndrome M96.1 Uncomplicated opioid dependence F11.20 Substance use status: uncomplicated Gastroesophageal reflux disease K21.9 (1) Diarrhea Diarrhea type: unspecified type Qualified Code(s): R19.7 - Diarrhea, unspecified (6) Opioid dependence Substance use status: uncomplicated Qualified Code(s): F11.20 - Opioid dependence, uncomplicated
[2024-04-08] MEDS: fentaNYL 25 MCG/HR TDSY TD SCH (08:22)
[2024-04-08] MEDS: fentaNYL 12 MCG/HR TDSY TD SCH (08:22)
[2024-04-08] MEDS ORDERED: Nursing to Pharmacy Communication SCH (08:45)
[2024-04-08] MEDS ORDERED: MULTIVITAMIN TAB PO SCH (09:00)
[2024-04-08] MEDS ORDERED: ASCORBIC ACID 500 MG TAB PO SCH (09:00)
[2024-04-08] MEDS: GABAPENTIN 600 MG TAB PO SCH (09:22)
[2024-04-08] MEDS: POTASSIUM CHLORIDE CRTAB 20 MEQ TABCR PO STA (09:43)
--- NOTE | 2024-04-08 12:58 | Communication Note ---
Date of Service: April 08, 2024 CDS Query severe malnutrition 2nd to recurrent cdiff colitis/absorption. patient has had ~13% wt loss in past 2 months tx as outlined, nutrition consulted and supplements to be provided. MV, Vit C continued encouragement of supplementation at discharge to improve nutrition
--- NOTE | 2024-04-08 17:12 | Infectious Disease Progress Nt ---
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 Initially seen in the ED on 04/05, and had a CTAP which showed left sade-colitis. She was unable to give stool sample and was discharged with outpatient follow up. She returned on 04/06 due to ongoing sympt oms with 6-7 BMs/day. Here, she has been febrile, tachycardic. BP initially in the 80s but improved. WBC wnl. Cr 0.91, AST 40s. PCT 6.28. GIPP with C diff gene positive, GDH positive, toxin negative (prior tests with toxin A positive). CXR with pulmonary vascular congestion. CT head negative. TTE with severe , EF 55- 60%. She was initially started on PO vanc which has now been changed to fidaxomi yahaira. ID consulted 04/07. Appreciate coordination by primary team. GI at [facility] was contacted and they will plan Rebyota after prolonged course of dificid. # Recurrent C diff infection # h/o prior fecal transplant # H/o severe - continue fidaxomicin 200mg PO twice daily x 10d then 200mg every other day x 20 days as per [facility] - planned for Rebyota outpatient ID will discontinue active follow up at this time. Please do not hesitate to reconsult the Infectious Diseases service as needed. Maryann Martinez MD [facility], Division of Infectious Diseases IDConnect: [phone] Admission and Anticipated Discharge Date Admission Date: April 06, 2024 Subjective This patient recommendation is based on a telemedicine consult request which was completed asynchronously through chart review and information provided by the primary physician. The patient was not seen or examined today. The evaluation is consultative in nature and all patient care and treatment decisions can either be accepted or rejected by the patient's primary hospital-based treating physician using their own independent medical judgment for their patient. Time Spent Reviewing Chart: 31+ minutes Results & Data Vital Signs (Past 12 Hours) Vital Signs Temp Pulse Pulse Resp BP Pulse Ox O2 Del Method 04/08/24 16:44 78 04/08/24 14:49 36.8 C 80 16 128/76 94 Room Air 04/08/24 11:15 36.7 C 72 16 115/70 94 Room Air 04/08/24 07:42 36.3 C L 77 17 111/69 95 Room Air (1) Diarrhea Diarrhea type: unspecified type Qualified Code(s): R19.7 - Diarrhea, unspecified
[2024-04-08] MEDS: ASCORBIC ACID 500 MG TAB PO SCH (17:13)
[2024-04-08] MEDS: MULTIVITAMIN TAB PO SCH (17:15)
[2024-04-08] MEDS: METHENAMINE HIPPURATE 1 GM TAB PO SCH (17:20)
[2024-04-09 07:37] LABS: Hematocrit (blood only) 32.2 % (37.0-47.0); Hemoglobin 10.5 g/dl (12.0-16.0); Mean Corpuscular Hemoglobin 27.1 pg (25.0-34.0); Mean Corpuscular Hgb Conc 32.6 g/dL (32.0-36.0); Mean Corpuscular Volume 83.2 fL (80.0-100.0); Mean Platelet Volume 10.6 fL (9.4-12.4); Platelet Count 197 K/uL (130-400); RDW Coefficient of Variation 16.2 % (11.5-14.5); RDW Standard Deviation 49.2 fL (36.4-46.3); Red Blood Count 3.87 M/uL (4.20-5.40); White Blood Count 3.64 K/ul (4.8-10.8)
--- NOTE | 2024-04-09 07:53 | Hospitalist Progress Note ---
Date of Service April 09, 2024 Assessment & Plan (1) Diarrhea: Plan: 78-year-old presents with C. difficile colitis,recent ER visit 04/05 for diarrhea/abd pain and discharged home w/ ongoing fever/symptoms. CTAP at that time w/ L sade-colitis, infectious or inflammatory, L hydronephrosis without hydroureter suggesting degree of UPJ obstruction which may be chronic (urine cx preliminary without growth) --> per daughter, had been doing well but had recent admission for suspected pneumonia but was volume overloaded and given abx (and empiric vanco while on abx) but developed cdiff infection and just completed course of Dificid 2 weeks ago and had been doing well up until recently Temp 38.1C overnight on admission, nothing further. Lactic 1.8. Procalcitonin 6.28. Stool testing + cdiff gene but negative toxin -- given fever/abd pain/diarrhea, considered recurrent infection (also confirmed w/ ID, consulted) Stool PCR remainder of testing is negative. Added ova/parasite, giardia, pending Initially placed on PO Vancomycin however given lack of efficacy prior--> switched to Dificid 200mg PO BID 5/30 AM and planned for 10 day BID then 20 day qod ID consulted -given diarrhea/fever/hypotension, would treat as recurrent cdiff infection. Consideration for [place] [facility] [place] was discussed. Did discuss patient with Dr Ramirez from [facility] about potential transfer. No inpatient fecal transplant/need for transfer at this time and rec to continue the switch to Dificid and complete the 10mg BID x 10 days and then 200mg qod x 20 days given recurrence and he will message Vika Reddy (who patient previously following) about arranging for the Rebyota in next 3 weeks once at end of her taper * per patient, did get call this AM from [facility] and sending form to her house to confirm income and get process for the Rebyota approved (38,000$ medication) which should be given 24-72 hours following completion of treatment * Daughter also contacted PCP and they sent for her dificid per my [place] mmendations and hopefully will be delivered this weekend and can consider dc when received S[employer] IMPROVEMENT -reports diarrhea slowed/no further overnight. WBC stable/no further fevers since admission. BCx NGTD, tolerating advancement of diet and slept well 04/08. Bcx ngtd IVF discontinued afternoon 04/08 given severe aortic stenosis to prevent overload, BUN/Cr stable and BPs improved 115/70., Nutrition consulted and supplements provided in afternoon and encouraged continued use at dc Plan to continue Dificid course with 200mg PO BID x 10 days followed by 200mg qod x 20 days given recurrence (start date 04/07) 04/09 Ongoing inpatient stay, on Dificid 200mg PO BID --> continued stay until Dificid delivered at home/ensuring has course BP stable/improved, 125/76. diarrhea slowed, improvement in appetite. Supplements being provided. Plan to downgrade off telemetry if stable BP/tele overnight, no arrhythmia on monitor and has been NSR 60-70s overnight. Call to daughter for update, voicemail full. Will attempt to update again in am/as needed. Can dc this weekend once Dificid received Updated daughter regarding plan (2) Severe aortic stenosis: Plan: # Severe aortic stenosis, awaiting TAVR procedure at [place] Not on any diuretics/no hx CHF at baseline. No increased LE/SOB, no syncope/lightheadedness reported AVOID hypotension, IVF as above and BP stable and diarrheal/losses slowed/revoled as above ECHO obtained, significant murmur -->Compared with 07/21/2023 study, severity of aortic stenosis has progressed, significant mitral regurgitation and mild pulmonary hypertension now seen. The left ventricle is borderline dilated. LV systolic function is normal EF 55- 60%. LV wall motion is normal. Moderate cLVH. Diastolic dysfunction grade III, restrictive pattern, consistent with markedly increased LA pressure. SEVERE calcific aortic valve stenosis, 0.6cm squared, severe mitral regurgitation, RVSP elevated at 30-40mmhG. Reports having been seen by [place] and needing intervention in future. and will need continued f/u once over her cdiff infection Continue to monitor volume status (3) Aortic stenosis: Plan: As above, SEVERE, also with mitral regurgitation from such. Outpt f/u for [place] [facility] (4) Anemia: Plan: hgb around baseline, no active bleeding reported and had been on copious IVF for BP support/diarrheal losses which have improved as above IVF discontinued and hgb stable/improved on repeat. no bleeding reported (5) Post laminectomy syndrome: Plan: # Chronic back pain Continue home fentanyl patch, gabapentin TID, Cymbalta, oxycodone prn (6) Opioid dependence: Plan: continue home meds (7) Gastroesophageal reflux disease: Plan: On prevacid at baseline -- NOT new med, however not on NSAIDs any longer as above and would AVOID PPI given cdiff/recurrence -- DISCONTINUE at dc recommended and discussed with patient/daughter prior thankfully PPI not continued on admission, added pepcid daily and would prefer this over PPI given cdiff/recurrance as above -- increased to BID and can continue at dc. Discussed w daughter about 10mg PO BID vs 20mg daily and will monitor w/ change # Depression Continue home gabapentin/Cymbalta/Remeron HS Plan continued inpatient stay but planning for dc in AM if stable/received home meds. daughter updated by phone this afternoon, agreed w/ monitoring overnight Admission and Anticipated Discharge Date Admission Date: April 06, 2024 Supervising Physician Co-Signing Physician Notes The patient was not seen by me. The chart was reviewed. Case discussed with MAUDE Galarza. Agree with assessment and plan Subjective Eval this morning, sitting up in bed. Improvement in appetite. No abdominal pain, abdomen soft, +BS. No significant distension. 2 loose stools but forming up/no further liquid/watery diarrhea. Temp 36.5C but no fever/chills, chest pain/dizziness. Remains on room air. No delivery of dificid and she suspects won't be there until Thursday, remains in patient until confirmed. Call to daughter for update, voicemail box full. Discussed w/ RN taking care of Ms Henry and to notify if calls in with any questions/concerns but will update again in AM/as needed. Plan to downgrade off tele if BP/tele stable overnight., BP presently 125/76 Question/concerns addressed at this time. Physical Exam Physical Exam: General: 78yo female sitting up in bed, reading paper, NAD, appears much improved, improvedment in appetite HEENT: atraumatic, normocephalic, mm improved, trachea midline port to R chest, covered, no evidence for infection Resp: even/unlabored, no significant w/c/r, slightly diminished in the bases, on room air 94% CV: RRR, SIGNIFICANT systolic murmur, S1, quiet S2, no significant LE edema/calf tenderness GI: +BS throughout (less hyperactive), less distension, soft/nontender : no focal MSK/Neuro: nonfocal, no slurred speech, answering questions appropriately Psych:AOx3, cooperative with exam Results & Data Results & Data Vital Signs (Past 12 Hours) Vital Signs Temp Pulse Pulse Resp BP BP Pulse Ox 04/09/24 02:44 36.7 C 75 16 103/65 91 04/08/24 23:00 81 04/08/24 22:23 36.9 C 79 16 136/87 93 04/08/24 20:01 36.7 C 81 18 120/78 92 04/08/24 20:00 O2 Del Method 04/09/24 02:44 Room Air 04/08/24 23:00 04/08/24 22:23 Room Air 04/08/24 20:01 Room Air 04/08/24 20:00 Room Air Laboratory Results 04/09/24 Range/Units 06:35 WBC 3.64 L (4.8-10.8) K/ul RBC 3.87 L (4.20-5.40) M/uL Hgb 10.5 L (12.0-16.0) g/dl Hct 32.2 L (37.0-47.0) % MCV 83.2 (80.0-100.0) fL MCH 27.1 (25.0-34.0) pg MCHC 32.6 (32.0-36.0) g/dL RDW Std Deviation 49.2 H (36.4-46.3) fL RDW Coeff of Inge 16.2 H (11.5-14.5) % Plt Count 197 (130-400) K/uL MPV 10.6 (9.4-12.4) fL Sodium 143 (136-145) mmol/L Potassium 3.8 (3.5-5.1) mmol/L Chloride 111 H (98-107) mmol/L Carbon Dioxide 28 (21-32) mmol/L Anion Gap 4 (3-11) BUN 16 (6-23) mg/dl Creatinine 0.66 (0.6-1.2) mg/dl Est Cr Clr Drug Dosing 64.2 ml/min Est GFR ( Amer) 98.8 ml/min Est GFR (Non-Af Amer) 85.2 ml/min BUN/Creatinine Ratio 24.2 H (10-20) Glucose 89 (70-99(Fasting)) mg/dl Calcium 8.5 L (8.6-10.3) mg/dl Magnesium 1.7 (1.7-2.4) mg/dl PG Care Time/CCT Total # of Minutes Spent Total Time Spent with Patient: Total time spent is greater than 50% in coordination of care (as documented) at patient's floor/unit and/or counseling patient: Coding Level of Care Code 71806 SUB INP/OBS CARE 235MIN Diagnoses Diarrhea R19.7 Diarrhea type: unspecified type Severe aortic stenosis I35.0 Aortic stenosis I35.0 Anemia D64.9 Post laminectomy syndrome M96.1 Uncomplicated opioid dependence F11.20 Substance use status: uncomplicated Gastroesophageal reflux disease K21.9 (1) Diarrhea Diarrhea type: unspecified type Qualified Code(s): R19.7 - Diarrhea, unspecified (6) Opioid dependence Substance use status: uncomplicated Qualified Code(s): F11.20 - Opioid dependence, uncomplicated
[2024-04-09 08:29] LABS: Calcium 8.5 mg/dl (8.6-10.3); Magnesium 1.7 mg/dl (1.7-2.4); Potassium 3.8 mmol/L (3.5-5.1)
[2024-04-09 08:34] LABS: BUN Creatinine Ratio 24.2 (10-20); Creatinine Clr Calc Pharmacy 64.2 ml/min; Est GFR (African American) 98.8 ml/min; Est GFR (Non-African American) 85.2 ml/min
[2024-04-09] MEDS: MAGNESIUM SULFATE / D5W 1 GM/100 ML BAG IV ONE (09:04)
[2024-04-09] MEDS: HEPARIN 100 UNIT/ML 5ML FLUSH FLUSH PRN (11:30)
[2024-04-09] MEDS: FAMOTIDINE 10 MG TABLET PO SCH (21:01)
[2024-04-09] MEDS: MELATONIN 3 MG TAB PO SCH (21:02)
[2024-04-10 07:48] LABS: BUN Creatinine Ratio 20.3 (10-20); Calcium 8.5 mg/dl (8.6-10.3); Creatinine Clr Calc Pharmacy 66.2 ml/min; Est GFR (African American) 99.8 ml/min; Est GFR (Non-African American) 86.1 ml/min; Magnesium 1.7 mg/dl (1.7-2.4); Potassium 3.9 mmol/L (3.5-5.1)
--- NOTE | 2024-04-10 08:36 | Hospitalist Progress Note ---
Date of Service April 10, 2024 Assessment & Plan (1) Diarrhea: Plan: 78-year-old presents with C. difficile colitis,recent ER visit 04/05 for diarrhea/abd pain and discharged home w/ ongoing fever/symptoms. CTAP at that time w/ L sade-colitis, infectious or inflammatory, L hydronephrosis without hydroureter suggesting degree of UPJ obstruction which may be chronic (urine cx preliminary without growth) --> per daughter, had been doing well but had recent admission for suspected pneumonia but was volume overloaded and given abx (and empiric vanco while on abx) but developed cdiff infection and just completed course of Dificid 2 weeks ago and had been doing well up until recently Temp 38.1C overnight on admission, nothing further. Lactic 1.8. Procalcitonin 6.28. Stool testing + cdiff gene but negative toxin -- given fever/abd pain/diarrhea, considered recurrent infection (also confirmed w/ ID, consulted) Stool PCR remainder of testing is negative. Added ova/parasite, giardia, pending Initially placed on PO Vancomycin however given lack of efficacy prior--> switched to Dificid 200mg PO BID 5/30 AM and planned for 10 day BID then 20 day qod ID consulted -given diarrhea/fever/hypotension, would treat as recurrent cdiff infection. Consideration for tx to [facility] [place] fecal [place] was discussed. Did discuss patient with Dr Ramirez from [facility] about potential transfer. No inpatient fecal transplant/need for transfer at this time and rec to continue the switch to Dificid and complete the 10mg BID x 10 days and then 200mg qod x 20 days given recurrence and he will message Vika Reddy (who patient previously following) about arranging for the Rebyota in next 3 weeks once at end of her taper * per patient, did get call this AM from [facility] and sending form to her house to confirm income and get process for the Rebyota approved (38,000$ medication) which should be given 24-72 hours following completion of treatment * Daughter also contacted PCP and they sent for her dificid per my [place] mmendations and hopefully will be delivered this weekend and can consider dc when received [employer] IMPROVEMENT -reports diarrhea slowed/no further overnight. WBC stable/no further fevers since admission. BCx NGTD, tolerating advancement of diet and slept well 04/08. Bcx ngtd IVF discontinued afternoon 04/08 given severe aortic stenosis to prevent overload, BUN/Cr stable and BPs improved 115/70., Nutrition consulted and supplements provided in afternoon and encouraged continued use at dc Plan to continue Dificid course with 200mg PO BID x 10 days followed by 200mg qod x 20 days given recurrence (start date 04/07) 04/09 Ongoing inpatient stay, on Dificid 200mg PO BID --> continued stay until Dificid delivered at home/ensuring has course BP stable/improved, 125/76. diarrhea slowed, improvement in appetite. Supplements being provided. Plan to downgrade off telemetry if stable BP/tele overnight, no arrhythmia on monitor and has been NSR 60-70s overnight. Call to daughter for update, voicemail full. Will attempt to update again in am/as needed. Can dc this weekend once Dificid received Updated daughter regarding plan (2) Severe aortic stenosis: Plan: # Severe aortic stenosis, awaiting TAVR procedure at [place] Not on any diuretics/no hx CHF at baseline. No increased LE/SOB, no syncope/lightheadedness reported AVOID hypotension, IVF as above and BP stable and diarrheal/losses slowed/revoled as above ECHO obtained, significant murmur -->Compared with 07/21/2023 study, severity of aortic stenosis has progressed, significant mitral regurgitation and mild pulmonary hypertension now seen. The left ventricle is borderline dilated. LV systolic function is normal EF 55- 60%. LV wall motion is normal. Moderate cLVH. Diastolic dysfunction grade III, restrictive pattern, consistent with markedly increased LA pressure. SEVERE calcific aortic valve stenosis, 0.6cm squared, severe mitral regurgitation, RVSP elevated at 30-40mmhG. Reports having been seen by [place] and needing intervention in future. and will need continued f/u once over her cdiff infection Continue to monitor volume status (3) Aortic stenosis: Plan: As above, SEVERE, also with mitral regurgitation from such. Outpt f/u for TAVR at [facility] (4) Anemia: Plan: hgb around baseline, no active bleeding reported and had been on copious IVF for BP support/diarrheal losses which have improved as above IVF discontinued and hgb stable/improved on repeat. no bleeding reported (5) Post laminectomy syndrome: Plan: # Chronic back pain Continue home fentanyl patch, gabapentin TID, Cymbalta, oxycodone prn (6) Opioid dependence: Plan: continue home meds (7) Gastroesophageal reflux disease: Plan: On prevacid at baseline -- NOT new med, however not on NSAIDs any longer as above and would AVOID PPI given cdiff/recurrence -- DISCONTINUE at dc recommended and discussed with patient/daughter prior thankfully PPI not continued on admission, added pepcid daily and would prefer this over PPI given cdiff/recurrance as above -- increased to BID and can continue at dc. Discussed w daughter about 10mg PO BID vs 20mg daily and will monitor w/ change # Depression Continue home gabapentin/Cymbalta/Remeron HS Plan continued inpatient stay but planning for dc in AM if stable/received home meds. daughter updated by phone this afternoon, agreed w/ monitoring overnight Admission and Anticipated Discharge Date Admission Date: April 06, 2024 Results & Data Results & Data Vital Signs (Past 12 Hours) Vital Signs Temp Pulse Pulse Resp BP BP Pulse Ox 04/10/24 07:29 36.9 C 71 16 145/84 H 95 04/10/24 03:13 36.6 C 69 16 151/78 H 93 04/09/24 23:26 36.7 C 75 16 151/85 H 96 04/09/24 23:00 82 O2 Del Method 04/10/24 07:29 Room Air 04/10/24 03:13 Room Air 04/09/24 23:26 Room Air 04/09/24 23:00 PG Care Time/CCT Total # of Minutes Spent Total Time Spent with Patient: Total time spent is greater than 50% in coordination of care (as documented) at patient's floor/unit and/or counseling patient: Coding Diagnoses Diarrhea R19.7 Diarrhea type: unspecified type Severe aortic stenosis I35.0 Aortic stenosis I35.0 Anemia D64.9 Post laminectomy syndrome M96.1 Uncomplicated opioid dependence F11.20 Substance use status: uncomplicated Gastroesophageal reflux disease K21.9 (1) Diarrhea Diarrhea type: unspecified type Qualified Code(s): R19.7 - Diarrhea, unspecified (6) Opioid dependence Substance use status: uncomplicated Qualified Code(s): F11.20 - Opioid dependence, uncomplicated
[2024-04-10] MEDS: MAGNESIUM CHLORIDE W/CALCIUM 64MG DELAYED REL TAB PO SCH (09:11)
--- NOTE | 2024-04-10 12:26 | Discharge Summary ---
Date of Service April 10, 2024 Admission HPI Per Admitting Provider 78-year-old female with history of aortic stenosis, chronic back pain, recurrent C. difficile colitis, fecal transplant in 2019, who was recently treated for C. difficile colitis course of vancomycin , Dificid, completed treatment 2 weeks ago, presented to ER with recurrent diarrhea and fever yesterday, was given IV fluids, patient could not give a stool sample, CT abdomen pelvis consistent with colitis, was discharged home. Today she presents with 6-7 loose bowel movement over 24 hours, fever up to 103. Her stool is yellow and foul-smelling, resembling previous episodes of C. difficile colitis. She has an tele appointment with [facility] tomorrow. Denies abdominal pain, nausea or vomiting. Admission Exam Per Admitting Provider head atraumatic normocephalic neck supple chest CTA heart S1S2 regular, systolic murmur abdomen soft, nt, nd, bs peresnet extremities no clubbing , no cyanosis neuro AAO times 3 Principal Diagnosis Recurrent cdiff Discharge Exam General: 78yo female sitting up in bed, reading paper, NAD, appears much improved., good mood/appetite HEENT: atraumatic, normocephalic, mm improved, trachea midline port to R chest, covered, no evidence for infection Resp: even/unlabored, no significant w/c/r, slightly diminished in the bases, on room air 94% CV: RRR, SIGNIFICANT systolic murmur, S1, quiet S2, no significant LE edema/calf tenderness GI: +BS throughout, no further significant distension, soft/nontender : no focal MSK/Neuro: nonfocal, no slurred speech, answering questions appropriately Psych:AOx3, cooperative with exam Discharge Data Allergies Allergy/AdvReac Type Severity Reaction Status Date / Time pollen extracts Allergy Intermediate ITCHY Verified 04/05/24 17:31 EYES, SNEEZING propolis (bee glue) Allergy Intermediate RASH FROM Verified 04/05/24 17:31 SURGICAL GLUE cellulose,oxidized Allergy Mild Rash Verified 04/05/24 17:31 [From Surgicel] latex Allergy Mild contact Verified 04/05/24 17:31 dermatitis nickel Allergy Mild contact Verified 04/05/24 17:31 dermatitis Sulfa (Sulfonamide Allergy Mild RASH Verified 04/05/24 17:31 Antibiotics) Consultations 04/06/24 16:10 ED Decision to Admit Stat 04/07/24 12:38 Consult Infectious Diseases Routine Ordered Studies Chest X-Ray 04/06/24 13:02 XR chest 1V portable CLINICAL HISTORY: Fever. COMPARISON STUDY: Chest CT March 10, 2024. Chest radiograph April 05, 2024. FINDINGS: Right internal jugular [id number] is in place. Low lung volumes are again noted with mild elevation of the right hemidiaphragm. There is pulmonary vascular congestion. Trace right pleural effusion. No pneumothorax. No consolidation to suggest pneumonia. Right infrahilar opacity favors atelectasis. IMPRESSION: 1. Pulmonary vascular congestion. Trace right pleural effusion. 2. No definite consolidation suggest pneumonia. ACT 112: Negative or not required by law. Electronically signed by: Jacob Trejo M.D. 04/06/2024 2:04 PM Hospital Course (1) Diarrhea: 78-year-old presents with C. difficile colitis,recent ER visit 04/05 for diarrhea/abd pain and discharged home w/ ongoing fever/symptoms. CTAP at that time w/ L sade-colitis, infectious or inflammatory, L hydronephrosis without hydroureter suggesting degree of UPJ obstruction which may be chronic (urine cx preliminary without growth) --> per daughter, had been doing well but had recent admission for suspected pneumonia but was volume overloaded and given abx (and empiric vanco while on abx) but developed cdiff infection and just completed course of Dificid 2 weeks ago and had been doing well up until recently Temp 38.1C overnight on admission, nothing further. Lactic 1.8. Procalcitonin 6.28. Stool testing + cdiff gene but negative toxin -- given fever/abd pain/diarrhea, considered recurrent infection (also confirmed w/ ID, consulted) Stool PCR remainder of testing is negative. Added ova/parasite, giardia, pending at time of discharge Isolation precautions maintained Initially placed on PO Vancomycin however given lack of efficacy prior, switched to Dificid 200mg PO BID 5/30 AM ID consulted -given diarrhea/fever/hypotension, recs/would treat as recurrent cdiff infection. Consideration for tx to [facility] for inpatient fecal transplant was discussed. * Did discuss patient with Dr Ramirez from [facility] about potential transfer. No inpatient fecal transplant/need for transfer at this time and rec to continue the switch to Dificid and complete the 10mg BID x 10 days and then 200mg qod x 20 days given recurrence and he will message Vika Reddy (who patient previously following) about arranging for the Rebyota in next 3 weeks once at end of her taper * per patient, did get call from [facility] and sending form to her house to confirm income and get process for the Rebyota approved (38,000$ medication) which should be given 24-72 hours following completion of treatment * Daughter also contacted PCP and they sent for her dificid per my recommendations and planned for discharge once received No leukocytosis, no further fevers. Blood cultures remained NGTD BP remaining stable past 48 hours off IVF, 145/84 and to monitor at home for next couple of days. She typically eats 2 decent meals at home but discussed ongoing supplementation at least for lunch period as well as hydration. Bowel movements slowed and formed bowels reported Pepcid added in place of PPI which has been discontinued at dc. Increased pepcid from 10mg daily to 10mg BID given could feel being off this and reported IMPROVEMENT/no further issues w/ increase and to be continue at discharge Dificid delivered to house this weekend and patient to continue 200mg BID x 10 days and then continue 200mg QOD x additional 20 days and GI sent paperwork for Rebyota and to be arranged and given in office at end of her course. Labs/electrolytes stable. Did decide to send on slow mag once daily while recovering to keep stores stable as well. Can f/u PCP about continued use in follow up. Updated daughter on plan prior to dc. Did have PT eval prior to dc to ensure no needs and was stable for discharge home without needs Discussed with patient to return to ER with any repeat/worsened diarrhea, fever, abdominal pain/etc (2) Severe aortic stenosis: # Severe aortic stenosis, awaiting TAVR procedure at [facility] Not on any diuretics/no hx CHF at baseline. No increased LE/SOB, no syncope/lightheadedness reported Rec to AVOID hypotension, IVF as above and BP stable and diarrheal/losses slowed/revoled as above ECHO obtained given significant murmur -->Compared with 07/21/2023 study, severity of aortic stenosis has progressed, significant mitral regurgitation and mild pulmonary hypertension now seen. The left ventricle is borderline dilated. LV systolic function is normal EF 55- 60%. LV wall motion is normal. Moderate cLVH. Diastolic dysfunction grade III, restrictive pattern, consistent with markedly increased LA pressure. SEVERE calcific aortic valve stenosis, 0.6cm squared, severe mitral regurgitation, RVSP elevated at 30-40mmhG. Reports having been seen by Deana and needing intervention in future. and will need continued f/u once over her cdiff infection No issues at present time/stable and not needing her diuretic at all (has but reports only needed to use once - cautioned on use if not keeping up with hydration) (3) Aortic stenosis: As above, SEVERE, also with mitral regurgitation from such. Outpt f/u for TAVR at [facility] once over current cdiff infection (4) Anemia: hgb around baseline, no active bleeding reported and had been on copious IVF for BP support/diarrheal losses which have improved as above. Repeat hg 9.1--> 10.5 since discontinuing IVF and no bleeding reported (5) Post laminectomy syndrome: # Chronic back pain Continued home fentanyl patch, gabapentin TID, Cymbalta, oxycodone prn pain reported at baseline/not worse (6) Opioid dependence: continued home meds (7) Gastroesophageal reflux disease: On prevacid at baseline -- NOT new med, however not on NSAIDs any longer as above and would AVOID PPI given cdiff/recurrence -- DISCONTINUED at discharge as discussed with patient/daughter previously Pepcid added 10mg daily, increased to BID and good results and would prefer pepcid over PPI given recurrence of cdiff infection # Depression Continued home gabapentin/Cymbalta/Remeron HS mood stable, support provided Plan dischaged home to complete course of dificid, extended course, and to be working on Rebyota form w/ outpatient provider to be provided at end of course. Continue supplements/multivitamin and slow mag as outlined and follow up with primary care this upcoming week to monitor her status Total Time Total Time Spent Total Time Spent (In Minutes): 45 Discharge Plan Discharge Items Patient Disposition: Home - Self-Care Reason For Visit: COLITIS Discharge Diagnosis: Recurrent cdiff colitis Goals: You have been hospitalized for an acute medical problem. During your stay at [facility], we have made an effort to correct the problem that brought you to the hospital while keeping you as comfortable as possible. Medications were used to bring your condition under control and your discharge instructions will include directions for any medications you should take after leaving the hospital. Please make sure you see your Primary Care Provider as part of your follow up plan. Activity: Resume your previous activity Non-emergency contact: Primary Care Provider, Floor Tiling Professional and [employer] Call non-emergency contact if: you have any medication questions, your symptoms worsen, your pain is concerning for you and you have a fever Follow-up/Referrals: Deborah Dong, [Primary Care Provider] - 04/18/24 11:00 am (Hospital follow up April 18 at 11:00) Diet: Regular Diet Comment: with supplements please at lunch if only having 2 meals daily Addtl Attending Provider Instructions: You have been hospitalized for recurrent cdiff infection. I have spoken to on-call provider at [facility] as well as infectious disease and recommendations are for DIFICID 200mg by mouth twice daily for 10 days (through 04/17) and then decrease to ONCE daily by mouth EVERY OTHER DAY for an additional 20 days to complete the course. GI at [facility] is arranging (as discussed, paperwork to your house to be completed) for REBYOTA at the end of this course and should have plenty of time to be arranged. Your LANSOPRAZOLE (Prilosec) has been DISCONTINUE given there is black box warning for cdiff with this medication and while this is NOT a new medication for you, I suspect given not terrible underlying reflux that the risks outweigh the benefit and you have been stable on pepcid 10mg by mouth which I increased to twice daily. We have also sent slow magnesium to take once daily in the morning to help keep your stores up as well and can be continued if needed in follow up. Please continue to stay well hydrated and include nutritional supplements to your regimen to help improve your nutrition as well to get you in the best shape prior to undergoing intervention on your heart valve. Please check blood pressures twice daily to ensure staying stable for next couple of days and then can check as needed if having any issues. Please follow up with primary care as well as gastroenterology at follow up as discussed to monitor your status after hospitalization in the next 7-10 days. Please follow up with cardiology to discuss your aortic valve replacement as already working on. Notify your provider if any chest pain/shortness of breath or syncope/dizziness. Please return the the ER with any increased diarrhea/fever/abdominal pain or any other symptoms concerning for you. It has been an absolute pleasure being a part of the medical team providing for you while you have been in the hospital and I wish you the best. Take care! Pending Studies at Discharge: Yes Studies:: blood cultures -- no growth to date stool ova/parasite, giardia pending (nothing to date) Stand-Alone Forms: My [facility], Smoking Cessation Medications and DC Order Prescriptions: New famotidine [Acid Driver Starting Gate (famotidine)] 10 mg Tablet 10 mg PO BID Qty: 60 0RF Slow-Mag 71.5 mg tablet,delayed release (DR/EC) 71.5 mg PO DAILY Qty: 30 0RF Continued cholecalciferol (vitamin D3) 2,000 unit capsule 2,000 units PO QAM naloxone [Narcan] 4 mg/actuation spray,non-aerosol 4 mg INTRANASAL DIRECTED PRN (Reason: overdose) Qty: 2 0RF gabapentin 600 mg tablet 600 mg PO TID mirtazapine [Remeron] 15 mg tablet 15 mg PO HS Qty: 90 0RF duloxetine [Cymbalta] 60 mg capsule,delayed release(DR/EC) 120 mg PO QAM Qty: 180 0RF oxycodone-acetaminophen [Percocet] 7.5-325 mg tablet 1 tab PO Q6H PRN (Reason: pain) Qty: 90 0RF Rx Instructions: ONGOING THERAPY fentanyl 37.5 mcg/hour patch 72 hour 1 patch transdermal Q72H Qty: 10 0RF Rx Instructions: ONGOING THERAPY Dificid 200 mg tablet See Rx Instructions PO Q OTHER DAY Qty: 30 0RF Rx Instructions: take 1 tablet twice a day for 10 days then 1 tablet every other day for 20 days. orally every other day; Jorge Luis 128 2 % drops 1 drp ophthalmic (eye) HS ferrous sulfate [iron] 325 mg (65 mg iron) tablet 650 mg PO BID triamterene-hydrochlorothiazid 37.5-25 mg tablet 1 tab PO DAILY PRN (Reason: weight gain) Qty: 30 2RF multivitamin Tablet 1 tab PO BID vitamin B complex Tablet 1 tab PO QAM ascorbic acid (vitamin C) [Vitamin C] 500 mg tablet 1,000 mg PO BID nicotine (polacrilex) [Nicorette] 4 mg Gum 4 mg BUCCAL Q4H PRN (Reason: Nicotine Dependence) melatonin 5 mg Tablet 5 mg PO HS methenamine hippurate [Hiprex] 1 gram tablet 1 g PO DAILY Rx Instructions: take 1 tablet by mouth daily AT 4:30PM Discontinued lansoprazole [Prevacid] 30 mg capsule,delayed release(DR/EC) 30 mg PO QAM Qty: 90 3RF Discharge Orders: Discharge Order (Routine); Ordered 04/10/24 Ordered By: Janet Kumar Admission Data Admit Date/Time: 04/06/24 19:26 Attending Provider: Mook Sprague Admit Provider: Aysha Shaw Primary Care Provider: Deborah Dong Other Providers: Aysha Shaw Other Interventions: Discharge Summary Assessment (RN) Last Done: 04/10/24 11:53 Supervising Physician Co-Signing Physician Notes The patient was not seen by me. The chart was reviewed. Case discussed with MAUDE Galarza. Agree with assessment and plan Coding Level of Care Code 84833 INP/OBS DISCH >30 MIN Diagnoses Diarrhea R19.7 Diarrhea type: unspecified type Severe aortic stenosis I35.0 Aortic stenosis I35.0 Anemia D64.9 Post laminectomy syndrome M96.1 Uncomplicated opioid dependence F11.20 Substance use status: uncomplicated Gastroesophageal reflux disease K21.9
== END 2024-04-10 13:27 | disposition home or self-care (01) | DRG 371 ==
LOC: ED 12:38 → EDINP 19:26 → SUATTDRO 19:26 → 2S 21:35

== ENCOUNTER 2024-05-22 11:10 | Inpatient (IN) ==
--- OUTSIDE RECORDS SUMMARY | 2024-05-22 11:17 | External Medical Summary | Continuity of Care Document ---
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 Maintenance Name Role Phone Deborah Dong Primary Care Physician [phone] [id number] Date(s): 05/09/24 - 05/09/24 [facility] [address] [facility] [address], [address], [address] [phone] Encounter Diagnosis Enterocolitis due to Clostridium difficile, not specified as recurrent(Discharge Diagnosis) - 05/09/24 Discharge Disposition: Home or Self Care Attending Physician: DEBBIE Reddy Susan K Referring Physician: DEBBIE Reddy Susan K Allergies, Adverse Reactions, Alerts Substance Criticality Severity Reaction Reaction Severity Status Latex Active sulfa drugs Active Nickel Contact dermatitis A ctive Immunizations Given and Recorded Vaccine Date Status Refusal Reason pneumococcal 23-valent vaccine 01/25/12 Given Medications aspirin 81 mg oral delayed release tablet Start: 05/21/21 9:40:00 AM EDT, 1 tab, PO, Daily Start Date: 05/21/21 Status: Ordered calcium (as carbonate)-vitamin D 600 mg-200 intl units (5 mcg) oral tablet Start: 01/22/21 3:32:00 PM EDT, 1 tab, PO, qAM Start Date: 01/22/21 Status: Ordered cholecalciferol 2000 intl units (50 mcg) oral capsule Start: 01/22/21 3:32:00 PM EDT, 1 cap, PO, Daily Start Date: 01/22/21 Status: Ordered Claritin 10 mg oral tablet Start: 01/22/21 3:35:00 PM EDT, 1 tab, PO, Daily, PRN: as needed for allergy symptoms Start Date: 01/22/21 Status: Ordered Cymbalta 60 mg oral delayed release capsule Start: 01/22/21 3:33:00 PM EDT, 2 cap, PO, Daily Start Date: 01/22/21 Status: Ordered fentaNYL 50 mcg/hr transdermal film, extended release Start: 01/22/21 3:33:00 PM EDT, 1 patch, topical, q72h, Refills: 0 Start Date: 01/22/21 Status: Ordered gabapentin 300 mg oral capsule Start: 05/21/21 9:44:00 AM EDT, 1 cap, PO, bid, in am & afternoon Start Date: 05/21/21 Status: Ordered gabapentin 300 mg oral capsule Start: 01/22/21 3:34:00 PM EDT, 1 cap, PO, qAM Start Date: 01/22/21 Status: Ordered gabapentin 600 mg oral tablet Start: 01/22/21 3:35:00 PM EDT, 1 tab, PO, qhs Start Date: 01/22/21 Status: Ordered lansoprazole 30 mg oral delayed release capsule Start: 09/10/23 10:43:00 AM EDT, 1 cap, PO, Daily Start Date: 09/10/23 Status: Ordered Melatonin Start: 01/22/21 3:35:00 PM EDT, 3 mg =, PO, qhs Start Date: 01/22/21 Status: Ordered methenamine hippurate 1 g oral tablet Start: 06/28/21 11:25:00 AM EDT, 1 tab, PO, Daily Start Date: 06/28/21 Status: Ordered mirtazapine 15 mg oral tablet Start: 05/21/21 9:45:00 AM EDT, 1 tab, PO, qhs Start Date: 05/21/21 Status: Ordered multivitamin Start: 01/22/21 3:36:00 PM EDT, 1 tab, PO, Daily Start Date: 01/22/21 Status: Ordered naloxone 4 mg/0.1 mL nasal spray Start: 01/22/21 3:36:00 PM EDT, 4 mg =, intranasal, ONCE, PRN: respiratory depression Start Date: 01/22/21 Status: Ordered Nature's Bounty Red Krill Oil 500 mg oral capsule Start: 05/21/21 9:45:00 AM EDT, 1 cap, PO, Daily Start Date: 05/21/21 Status: Ordered nicotine 4 mg oral transmucosal gum Start: 09/10/23 10:44:00 AM EDT, 1 each, PO, q1h, PRN: as needed for smoking cessation Start Date: 09/10/23 Status: Ordered Rebyota rectal suspension Start: 04/11/24 3:28:00 PM EDT, 150 mL, [place], ONCE, Disp# 150 mL, Pharmacy: [facility] Start Date: 04/11/24 Status: Ordered sodium chloride 0.9% eye drops Start: 03/29/24 12:55:00 PM EDT, both eyes, Daily Start Date: 03/29/24 Status: Ordered Vitamin B Complex oral capsule Start: 01/22/21 3:37:00 PM EDT, 1 cap, PO, Daily Start Date: 01/22/21 Status: Ordered Vitamin C 500 mg oral tablet Start: 03/29/24 12:53:00 PM EDT, 1 tab, PO, bid Start Date: 03/29/24 Status: Ordered Vitamin D2 Start: 05/21/21 9:49:00 AM EDT, PO, Daily Start Date: 05/21/21 Status: Ordered Voltaren 1% topical gel Start: 01/22/21 3:33:00 PM EDT, 1 appl, topical, qid, PRN: Pain Start Date: 01/22/21 Status: Ordered Problem List Condition Confirmation Course Effective Dates Status H ealth Status Informant Anxiety Confirmed Active Back pain Confirmed Active Difficulty sleeping Confirmed Active Hyperlipidemia Confirmed Active Joint pain Confirmed Active LBP (low back pain) Confirmed Active Leg cramp Confirmed Active Muscle pain Confirmed Active Seasonal allergies Confirmed Active Tingling Confirmed Active Diagnosis Diagnosis Type Effective Dates Health Status Clinical Service Informant Enterocolitis due to Clostridium difficile, not specified as recurrent Discharge Diagnosis 05/09/24 Non-Specified Procedures Procedure Date Related Diagnosis Body Site Status Colonoscopy 01/25/21 Completed Back 1 Completed Cholecystectomy Completed Total knee joint prosthesis 2 Completed 1sx 2right Social History Social History Type Response Smoking Status Former Smoker, quit > 1 yr Sex Female Patient Care team information Care Team Personnel Name: Howard Ervin Kayla Position: Pharmacist Member Role: Pharmacy - Lifetime Name: DO Dong Maria Position: Referring Member Role: Primary Care Provider Address: Address: [facility] [address] [address] Care Team Related Persons Name: TJ DENNYS Nelson Address: home [address] [facility] [facility] [id number]
--- NOTE | 2024-05-22 11:40 | Emergency Department Note ---
Impression & Plan C. difficile diarrhea, Aortic stenosis, Fever, Acute hypotension, Acute dehydration ED Provider Note NAME: JAYLEEN BARRERA AGE: 78 SEX: F : 1945 ARRIVES VIA: Walk-In INFORMANT: Patient, daughter ED PROVIDER(S): Eddie Arana MD CHIEF COMPLAINT: Diarrhea, fever MEDICAL DECISION MAKING: Patient presents due to concern for diarrhea and fever. IV was established and blood work obtained along with blood cultures and lactate. Patient was ordered empiric Dificid. 250 bolus ordered over 125 an hour given the patient's history of aortic stenosis. Patient has a normal white count H&H and platelet count. The patient's kidney function is unremarkable the prerenal azotemia is noted. The patient is initial troponin of 28. The patient has had elevations in the past. Patient's positive for C. difficile gene as well as toxin A. Given the patient's prior history with her hypotension and fever do not believe patient is suitable for outpatient follow-up but would benefit from admission at this time. I did speak with the on-call hospitalist Dr. Richardson and the patient was admitted to the medicine service. Procalcitonin and lactate are normal. Patient was ordered additional IV fluids to be given over 2 hours total of 250 cc at 125 an hour. Discussion w/ other healthcare providers: Dr. Richardson inpatient medicine service Prior /Outside records reviewed: I reviewed a primary care visit from April 18 patient with known history of recurrent C. difficile diarrhea to be on Dificid and following up with gastroenterology and ID. Scheduled for [facility] 05/09 Differential diagnosis: Infection, dehydration, metabolic abnormality, hypo/hyperglycemia, electrolyte imbalance, anemia, UTI, pneumonia, thyroid dysfunction among others were considered. Diagnostics, as interpreted by me: ECG: None Cardiac monitoring: An order was placed for continuous cardiac monitoring. The monitor shows a rate of 102 with tachycardic and regular rhythm. Patient was placed on pulse oximetry Medical decision rules: None Imaging studies: I informally interpreted the patient's Chest x-ray does not show evidence of obvious pneumonia or pneumothorax right-sided port noted.with formal report to follow. HPI: Patient presents due to concern for diarrhea and fever. Patient does have a known history of recurrence of C. difficile. Patient did receive red Boda on May 09 after courses of Dificid and inpatient treatment for recurrent C. difficile. The patient had 2 bowel movements this morning. She did take Tylenol. She denies any recent travel but the patient has had a recent COVID contact but had a negative home test. Patient is accompanied by her daughter who also provides some history. Patient has been taking her medications. The patient is scheduled for TAVR on June 09. She does have a known history of aortic stenosis and reportedly cannot be bolused with IV fluids as the patient did have an issue in the past with volume overload. The occurrence of her prior C. 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 In the spring and the patient did have a bout of COVID and probably volume overload at that time was treated with antibiotics as a precaution for possible pneumonia within several days of being discharged had a recurrence of her C. difficile. PAST MEDICAL HISTORY: See Below PAST SURGICAL HISTORY: See Below SOCIAL HISTORY: See Below HOME MEDICATIONS: See Below ALLERGIES: See Below VITALS: See Below PHYSICAL EXAMINATION: GENERAL: NAD, non-toxic. Wearing glasses and a mask. EYE EXAM: Normal conjunctiva. PERRL, no anisocoria and EOM's grossly intact w/o pain. OROPHARYNX: Moist mucus membranes, grossly normal dentition. NECK: Trachea midline, no stridor. LUNGS: Clear to auscultation. Normal chest wall mechanics. HEART: NSR, systolic ejection murmur noted. ABDOMEN: Abdomen soft, non-tender, no masses, no rebound or guarding. BACK: No CVA TTP. SKIN: No rashes and no bruising. UPPER EXTREMITIES: Upper extremities are grossly normal. LOWER EXTREMITIES: Grossly normal, no edema. NEURO EXAM: A&O x3, cranial nerves II-XII grossly intact, normal speech, moves all 4 extremities. Past Med/Surg History Problem List (Updated 05/22/24 @ 16:09 by Eddie Arana MD) Acute dehydration (Acute) Acute hypotension (Acute) Fever (Acute) Aortic stenosis (Acute) C. difficile diarrhea (Acute) Acute confusion (Acute) Fever (Acute) Diarrhea (Acute) Weakness (Acute) Recurrent Clostridioides difficile diarrhea Clostridioides difficile infection Gastroesophageal reflux disease Aortic stenosis (Acute) Anemia (Acute) Severe aortic stenosis Carotid stenosis, bilateral Peripheral neuropathy Contact allergic reaction Port-A-Cath in place (01/28/23) Insertion of Access Port right IJ with Fluoroscopy(Right) - Chavo Hubbard DO, FACS Encounter for pre-operative examination Moderate to severe aortic stenosis Presence of intrathecal pump (Chronic) Battery has February 2021 Impaired fasting glucose (Chronic) Opioid dependence (Chronic) Tubular adenoma of colon (Chronic) Family history of colon cancer (Chronic) Chronic back pain Microcytic anemia Ambulatory dysfunction Pulmonary nodule Abnormal CT scan of lung Arthritis Thoracic aortic aneurysm Coronary artery calcification seen on CAT scan Chronic left hip pain (Acute) Chronic pain of lower extremity, bilateral Anemia (Acute) Moderate mitral regurgitation Persistent insomnia (Chronic) Lumbar canal stenosis (Chronic) Atherosclerosis of aorta (Chronic) follows with Dr. Connor Post laminectomy syndrome (Chronic) Medical History Shortness of breath Bilateral pleural effusion Elevated troponin Chest pain Exertional chest pain Chylothorax Anxiety disorder, unspecified Gastroparesis History of COVID-19 2019 > hospitalized at [facility] Hx of Clostridium difficile infection hx of 2 yrs ago and treated Pleural effusion moderate to large chronic pleural effusion, most recent imaging 01/09/[address] Recurrent UTI COPD (chronic obstructive pulmonary disease) MSSA (methicillin susceptible Staphylococcus aureus) infection (03/2021) Pneumonia due to 2019 novel coronavirus resolved UTI (urinary tract infection) chronic > preventative antibiotic on med list VRE infection (vancomycin resistant Enterococcus) hx of 2 yrs ago > resolved Leukocytosis NSTEMI (non-ST elevated myocardial infarction) pt unaware Mild aortic regurgitation Bacteremia due to Gram-negative bacteria Emphysema of lung Noted on chest CTs but not reported by patient. Presence of intrathecal pump not functioning, reason for Fentanyl patch Degenerative disc disease DVT (deep venous thrombosis) treated inpatient directly following knee replacement. no problems since. 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 and treating with Dr Moseley (oncology) Surgical History Previous back surgery none to cervical spine, x3 total History of colonoscopy History of laminectomy lumbar ~2013 Status post laminectomy with spinal fusion lumbar, 2007 & 2008 H/O cataract removal with insertion of prosthetic lens bilateral S/P hip replacement (2016) bilateral 2015, 2016 History of knee replacement procedure of right knee 2002 History of cholecystectomy 1977 Family History Father Abdominal aneurysm Colorectal cancer Grandmother (Paternal) Cancer Throat Other No family history of adverse response to anesthesia Denies family history of Ovarian cancer Prostate cancer Myocardial infarction Breast cancer Social History Smoking Status: Former smoker Tobacco Type: Cigarettes packs per day: 2; Second Hand Exposure: No; Do You Dip or Chew Tobacco: No; Hx Alcohol Use: No Hx Substance Use: No Preferred Language: Cymro Communication Ability: Effective Visual Impairment: Limited Hearing Ability: Normal Web Site Admin Required: No Beliefs That Will Affect Care: None marital status: / Current Living Situation: Alone current occupational status: retired How many Children do You have: 2 Feels Safe at Home: Yes Childhood Exposure to Second-Hand Smoke: Yes Diet: regular caffeine: Yes (drinks coffee daily ) during the past year weight has: decreased > 10 lbs Dental Care, Regularly: No Physical Activity Frequency: Does not Exercise Seatbelt Use: always Sunscreen Use: Yes Assistive Devices: Walker Allergies Allergies Allergy/AdvReac Type Severity Reaction Status Date / Time pollen extracts Allergy Intermediate ITCHY Verified 05/10/24 10:52 EYES, SNEEZING propolis (bee glue) Allergy Intermediate RASH FROM Verified 05/10/24 10:52 SURGICAL GLUE cellulose,oxidized Allergy Mild Rash Verified 05/10/24 10:52 [From Surgicel] latex Allergy Mild contact Verified 05/10/24 10:52 dermatitis nickel Allergy Mild contact Verified 05/10/24 10:52 dermatitis Sulfa (Sulfonamide Allergy Mild RASH Verified 05/10/24 10:52 Antibiotics) Home Meds Home Medications Medication Instructions Recorded Confirmed cholecalciferol (vitamin D3) 50 2,000 units PO QAM 07/27/18 05/10/24 mcg (2,000 unit) capsule multivitamin 1 tab PO BID 08/21/20 05/10/24 vitamin B complex 1 tab PO QAM 09/27/20 05/10/24 ascorbic acid (vitamin C) 500 mg 1,000 mg PO BID 12/28/20 05/10/24 tablet (Vitamin C) nicotine (polacrilex) 4 mg gum 4 mg buccal Q4H PRN Nicotine 02/08/21 05/10/24 (Nicorette) Dependence sodium chloride 2 % eye drops 1 drp ophthalmic (eye) HS 10/23/23 05/10/24 (Jorge Luis 128) ferrous sulfate 325 mg (65 mg 650 mg PO BID 01/26/24 05/10/24 iron) tablet (iron) gabapentin 600 mg tablet 600 mg PO TID 03/28/24 05/10/24 melatonin 5 mg tablet 5 mg PO HS 04/06/24 05/10/24 Previous Rx's Medication Instructions Recorded duloxetine 60 mg capsule,delayed 120 mg (2 x 60 mg) PO QAM #180 caps 03/16/23 release (Cymbalta) naloxone 4 mg/actuation nasal 4 mg intranasal DIRECTED PRN 11/30/23 spray (Narcan) overdose #2 ea triamterene 37.5 1 tab PO DAILY PRN weight gain #30 02/11/24 mg-hydrochlorothiazide 25 mg tablet tabs fidaxomicin 200 mg tablet (Dificid) See Rx Instructions PO Q OTHER DAY 04/07/24 #30 tabs famotidine 10 mg tablet (Acid 10 mg PO BID #60 tabs 04/09/24 Outbound Call Center Representative (famotidine)) magnesium chloride 71.5 mg 71.5 mg PO DAILY #30 tabs 04/10/24 (magnesium chloride) tablet,delayed release (Slow-Mag) mirtazapine 15 mg tablet (Remeron) 15 mg PO HS #90 tabs 04/18/24 oxycodone-acetaminophen 7.5 mg-325 1 tab PO Q6H PRN pain #90 tabs 04/21/24 mg tablet (Percocet) methenamine hippurate 1 gram 1 g PO DAILY #90 tabs 04/26/24 tablet (Hiprex) fentanyl 37.5 mcg/hour transdermal 1 patch transdermal Q72H #10 ea 05/04/24 patch Results & Data (ED) Vital Signs Vital Signs - 24 hr 05/22/24 11:24 05/22/24 12:55 05/22/24 13:38 Temperature 37.7 C H Temperature Source Oral Pulse Rate 109 H 97 H Pulse Rate [Left Apical] 105 H Respiratory Rate 20 18 Respiratory Effort / Characteristics Non-Labored Spontaneous Non-Labored Respiratory Depth Normal Normal Respiratory Pattern Regular Blood Pressure 82/49 L Blood Pressure [Left Arm] 129/73 Blood Pressure Mean 60 Blood Pressure Mean [Left Arm] 91 Pulse Oximetry 98 96 Oxygen Delivery Method Room Air Room Air Sepsis Recent Fever Within 48 Hours Yes Sepsis New/Unexplained Change in Mental Status N/A Sepsis Action Taken by Nursing No Action Required Home Medications Current Medication List: was personally reviewed by me Laboratory Data Attestation: I reviewed the patient's lab results. 05/22/24 12:47 05/22/24 12:47 Lab Results 05/22/24 05/22/24 05/22/24 Range/Units 11:29 12:47 13:09 WBC 7.88 (4.8-10.8) K/ul RBC 4.24 (4.20-5.40) M/uL Hgb 12.0 (12.0-16.0) g/dl Hct 37.3 (37.0-47.0) % MCV 88.0 (80.0-100.0) fL MCH 28.3 (25.0-34.0) pg MCHC 32.2 (32.0-36.0) g/dL RDW Std Deviation 47.9 H (36.4-46.3) fL RDW Coeff of Inge 15.0 H (11.5-14.5) % Plt Count 219 (130-400) K/uL MPV 10.1 (9.4-12.4) fL Immature Gran % (Auto) 0.3 % Neut % (Auto) 89.5 % Lymph % (Auto) 5.3 % Pershing % (Auto) 4.6 % Eos % (Auto) 0.0 % Baso % (Auto) 0.3 % Neut # (Auto) 7.06 H (1.40-6.50) K/uL Lymph # (Auto) 0.42 L (1.20-3.40) K/uL Pershing # (Auto) 0.36 (0.11-0.59) K/uL Eos # (Auto) 0.00 (0.00-0.50) K/uL Baso # (Auto) 0.02 (0.00-0.20) K/uL Immature Gran # (Auto) 0.02 (0.01-0.20) K/uL Toxic Vacuolation 1+ Sodium 136 (136-145) mmol/L Potassium 3.5 (3.5-5.1) mmol/L Chloride 103 (98-107) mmol/L Carbon Dioxide 27 (21-32) mmol/L Anion Gap 6 (3-11) BUN 24 H (6-23) mg/dl Creatinine 0.83 (0.6-1.2) mg/dl Est Cr Clr Drug Dosing 49.0 ml/min Est GFR ( Amer) 78.8 ml/min Est GFR (Non-Af Amer) 68.0 ml/min BUN/Creatinine Ratio 28.9 H (10-20) Glucose 108 H (70-99(Fasting)) mg/dl Lactate 0.7 (0.4-2.0) mmol/L Calcium 9.1 (8.6-10.3) mg/dl Magnesium 1.7 (1.7-2.4) mg/dl Total Bilirubin 1.0 (0.2-1.0) mg/dl Direct Bilirubin 0.1 (0-0.2) mg/dl AST 28 (13-39) U/L ALT 15 (7-52) U/L Alkaline Phosphatase 62 (34-104) U/L Troponin I High Sens 28.2 H (0-14) pg/ml Total Protein 6.4 (6.0-8.3) gm/dl Albumin 4.0 (3.4-5.0) gm/dl Procalcitonin 0.18 (0-0.5) ng/ml Stl C. cayetanensis PCR Not Detected (NotDetected) Stool Rotavirus A PCR Not Detected (NotDetected) Stl Adenov F 40/41 PCR Not Detected (NotDetected) Stool Astrovirus (PCR) Not Detected (NotDetected) Stool Campylobacter PCR Not Detected (NotDetected) Stl C. diff Tox B Gene Positive Cdiff Gene H (Neg) Stl C.difficile Tox A&B Positive Cdiff Toxin A* (Negative) Stool Cryptosporidium PCR Not Detected (NotDetected) Stl E.coli Shiga Tox PCR Not Detected (NotDetected) Stl Enterotoxigenic E PCR Not Detected (NotDetected) Stool EPEC (PCR) Not Detected (NotDetected) Stool EAEC (PCR) Not Detected (NotDetected) Stl E. histolytica PCR Not Detected (NotDetected) Stool Giardia Lamblia PCR Not Detected (NotDetected) Stool Salmonella PCR Not Detected (NotDetected) Stool Sapovirus (PCR) Not Detected (NotDetected) Stl P. shigelloides PCR Not Detected (NotDetected) Stl Shigella/EIEC PCR Not Detected (NotDetected) St Y.enterocolitica PCR Not Detected (NotDetected) Stool Vibrio (PCR) Not Detected (NotDetected) Stl Vibrio cholerae PCR Not Detected (NotDetected) Stl Norovirus GI/GII PCR Not Detected (NotDetected) Adenovirus (PCR) Not Detected (NotDetected) B. pertussis DNA (PCR) Not Detected (NotDetected) B.parapertussis DNA PCR Not Detected (NotDetected) C. pneumoniae DNA (PCR) Not Detected (NotDetected) Coronavirus OC43 (PCR) Not Detected (NotDetected) Coronavirus HKU1 (PCR) Not Detected (NotDetected) Coronavirus 229E (PCR) Not Detected (NotDetected) SARS-CoV-2 (PCR) Not Detected (NotDetected) Coronavirus NL63 (PCR) Not Detected (NotDetected) Human Metapneumovir PCR Not Detected (NotDetected) Influenza Type A (PCR) Not Detected (NotDetected) Influenza Type B (PCR) Not Detected (NotDetected) M. pneumoniae (PCR) Not Detected (NotDetected) Parainfluenza 1 (PCR) Not Detected (NotDetected) Parainfluenza 2 (PCR) Not Detected (NotDetected) Parainfluenza 3 (PCR) Not Detected (NotDetected) Parainfluenza 4 (PCR) Not Detected (NotDetected) RSV (PCR) Not Detected (NotDetected) Entero/Rhino (PCR) Not Detected (NotDetected) 05/22/24 Range/Units 14:43 WBC (4.8-10.8) K/ul RBC (4.20-5.40) M/uL Hgb (12.0-16.0) g/dl Hct (37.0-47.0) % MCV (80.0-100.0) fL MCH (25.0-34.0) pg MCHC (32.0-36.0) g/dL RDW Std Deviation (36.4-46.3) fL RDW Coeff of Inge (11.5-14.5) % Plt Count (130-400) K/uL MPV (9.4-12.4) fL Immature Gran % (Auto) % Neut % (Auto) % Lymph % (Auto) % Pershing % (Auto) % Eos % (Auto) % Baso % (Auto) % Neut # (Auto) (1.40-6.50) K/uL Lymph # (Auto) (1.20-3.40) K/uL Pershing # (Auto) (0.11-0.59) K/uL Eos # (Auto) (0.00-0.50) K/uL Baso # (Auto) (0.00-0.20) K/uL Immature Gran # (Auto) (0.01-0.20) K/uL Toxic Vacuolation Sodium (136-145) mmol/L Potassium (3.5-5.1) mmol/L Chloride (98-107) mmol/L Carbon Dioxide (21-32) mmol/L Anion Gap (3-11) BUN (6-23) mg/dl Creatinine (0.6-1.2) mg/dl Est Cr Clr Drug Dosing ml/min Est GFR ( Amer) ml/min Est GFR (Non-Af Amer) ml/min BUN/Creatinine Ratio (10-20) Glucose (70-99(Fasting)) mg/dl Lactate (0.4-2.0) mmol/L Calcium (8.6-10.3) mg/dl Magnesium (1.7-2.4) mg/dl Total Bilirubin (0.2-1.0) mg/dl Direct Bilirubin (0-0.2) mg/dl AST (13-39) U/L ALT (7-52) U/L Alkaline Phosphatase (34-104) U/L Troponin I High Sens 27.3 H (0-14) pg/ml Total Protein (6.0-8.3) gm/dl Albumin (3.4-5.0) gm/dl Procalcitonin (0-0.5) ng/ml Stl C. cayetanensis PCR (NotDetected) Stool Rotavirus A PCR (NotDetected) Stl Adenov F 40/41 PCR (NotDetected) Stool Astrovirus (PCR) (NotDetected) Stool Campylobacter PCR (NotDetected) Stl C. diff Tox B Gene (Neg) Stl C.difficile Tox A&B (Negative) Stool Cryptosporidium PCR (NotDetected) Stl E.coli Shiga Tox PCR (NotDetected) Stl Enterotoxigenic E PCR (NotDetected) Stool EPEC (PCR) (NotDetected) Stool EAEC (PCR) (NotDetected) Stl E. histolytica PCR (NotDetected) Stool Giardia Lamblia PCR (NotDetected) Stool Salmonella PCR (NotDetected) Stool Sapovirus (PCR) (NotDetected) Stl P. shigelloides PCR (NotDetected) Stl Shigella/EIEC PCR (NotDetected) St Y.enterocolitica PCR (NotDetected) Stool Vibrio (PCR) (NotDetected) Stl Vibrio cholerae PCR (NotDetected) Stl Norovirus GI/GII PCR (NotDetected) Adenovirus (PCR) (NotDetected) B. pertussis DNA (PCR) (NotDetected) B.parapertussis DNA PCR (NotDetected) C. pneumoniae DNA (PCR) (NotDetected) Coronavirus OC43 (PCR) (NotDetected) Coronavirus HKU1 (PCR) (NotDetected) Coronavirus 229E (PCR) (NotDetected) SARS-CoV-2 (PCR) (NotDetected) Coronavirus NL63 (PCR) (NotDetected) Human Metapneumovir PCR (NotDetected) Influenza Type A (PCR) (NotDetected) Influenza Type B (PCR) (NotDetected) M. pneumoniae (PCR) (NotDetected) Parainfluenza 1 (PCR) (NotDetected) Parainfluenza 2 (PCR) (NotDetected) Parainfluenza 3 (PCR) (NotDetected) Parainfluenza 4 (PCR) (NotDetected) RSV (PCR) (NotDetected) Entero/Rhino (PCR) (NotDetected) Administered Medications Sodium Chloride (Nss) 250 mls @ 125 mls/hr IV .Q2H ONE Stop: 05/22/24 16:27 Last Admin: 05/22/24 14:39 Dose: 125 mls/hr Documented By: FABIO Discontinued Medications Fidaxomicin (Fidaxomicin 200 Mg Tab) 200 mg PO NOW ONE Stop: 05/22/24 11:56 Last Admin: 05/22/24 13:03 Dose: 200 mg Documented By: FABIO Sodium Chloride (Nss) 250 mls @ 125 mls/hr IV .Q2H ONE Stop: 05/22/24 13:54 Last Infusion: 05/22/24 15:09 Dose: Infused Documented By: Admin: 05/22/24 12:58 Dose: 125 mls/hr Documented By: FABIO Imaging Data Radiologist's Impression: Chest X-Ray 05/22/24 11:55 XR chest 1V portable HISTORY: Sepsis COMPARISON: Chest 04/06/2024. FINDINGS: No pneumothorax. There is mild elevation of the right hemidiaphragm, unchanged. A right jugular Port-A-Cath remains in the SVC. No new focal lung consolidations to suggest pneumonia. No evidence for pulmonary edema. A trace right pleural effusion has improved. No acute fractures. IMPRESSION: 1. No acute process within the chest. 2. A trace right pleural effusion has improved. ACT 112: Negative or not required by law. Electronically signed by: Abundio Ansari M.D. 05/22/2024 1:39 PM Discharge Plan Visit Data Chief Complaint: Fever Stated Complaint: FEVER, DIARRHEA, LOW BP, NEG HOME COVID TEST ED Provider: Eddie Arana Discharge Problem: C. difficile diarrhea, Aortic stenosis, Fever, Acute hypotension, Acute dehydration Forms Stand Alone Forms: My [facility] Prescriptions Prescriptions: No Action cholecalciferol (vitamin D3) 2,000 unit capsule 2,000 units PO QAM naloxone [Narcan] 4 mg/actuation spray,non-aerosol 4 mg INTRANASAL DIRECTED PRN (Reason: overdose) Qty: 2 0RF gabapentin 600 mg tablet 600 mg PO TID duloxetine [Cymbalta] 60 mg capsule,delayed release(DR/EC) 120 mg PO QAM Qty: 180 0RF Dificid 200 mg tablet See Rx Instructions PO Q OTHER DAY Qty: 30 0RF Rx Instructions: take 1 tablet twice a day for 10 days then 1 tablet every other day for 20 days. orally every other day; oxycodone-acetaminophen [Percocet] 7.5-325 mg tablet 1 tab PO Q6H PRN (Reason: pain) Qty: 90 0RF Rx Instructions: ONGOING THERAPY methenamine hippurate [Hiprex] 1 gram tablet 1 g PO DAILY Qty: 90 2RF Rx Instructions: take 1 tablet by mouth daily AT 4:30PM fentanyl 37.5 mcg/hour patch 72 hour 1 patch transdermal Q72H Qty: 10 0RF Rx Instructions: ONGOING THERAPY Jorge Luis 128 2 % drops 1 drp ophthalmic (eye) HS mirtazapine [Remeron] 15 mg tablet 15 mg PO HS Qty: 90 0RF ferrous sulfate [iron] 325 mg (65 mg iron) tablet 650 mg PO BID triamterene-hydrochlorothiazid 37.5-25 mg tablet 1 tab PO DAILY PRN (Reason: weight gain) Qty: 30 2RF multivitamin Tablet 1 tab PO BID vitamin B complex Tablet 1 tab PO QAM ascorbic acid (vitamin C) [Vitamin C] 500 mg tablet 1,000 mg PO BID nicotine (polacrilex) [Nicorette] 4 mg Gum 4 mg BUCCAL Q4H PRN (Reason: Nicotine Dependence) melatonin 5 mg Tablet 5 mg PO HS famotidine [Acid Outbound Call Center Representative (famotidine)] 10 mg Tablet 10 mg PO BID Qty: 60 0RF Slow-Mag 71.5 mg tablet,delayed release (DR/EC) 71.5 mg PO DAILY Qty: 30 0RF Referrals Referrals: Deborah Dong DO [Primary Care Provider] - Discharge Problem: Aortic stenosis Qualifiers: Cardiac valve disease etiology: etiology unspecified Qualified Code(s): I35.0 - Nonrheumatic aortic (valve) stenosis Fever Qualifiers: Fever type: due to other condition Qualified Code(s): R50.81 - Fever presenting with conditions classified elsewhere
[2024-05-22] MEDS: SODIUM CHLORIDE 0.9% 250 ML IV ONE ×2 (12:58→14:39)
[2024-05-22] MEDS: FIDAXOMICIN 200 MG TAB PO ONE (13:03)
[2024-05-22 13:10] LABS: Hematocrit (blood only) 37.3 % (37.0-47.0); Mean Corpuscular Hemoglobin 28.3 pg (25.0-34.0); Mean Corpuscular Hgb Conc 32.2 g/dL (32.0-36.0); Mean Platelet Volume 10.1 fL (9.4-12.4); Platelet Count 219 K/uL (130-400); RDW Standard Deviation 47.9 fL (36.4-46.3); Red Blood Count 4.24 M/uL (4.20-5.40); White Blood Count 7.88 K/ul (4.8-10.8)
[2024-05-22 13:19] LABS: Cdiff Toxin B Gene (2yr or >) Positive Cdiff Gene (Neg)
[2024-05-22 13:22] LABS: BUN Creatinine Ratio 28.9 (10-20); Bilirubin Direct 0.1 mg/dl (0-0.2); Calcium 9.1 mg/dl (8.6-10.3); Est GFR (African American) 78.8 ml/min; Magnesium 1.7 mg/dl (1.7-2.4); Potassium 3.5 mmol/L (3.5-5.1); Total Protein 6.4 gm/dl (6.0-8.3)
[2024-05-22 13:29] LABS: Troponin I High Sensitivity 28.2 pg/ml (0-14)
--- NOTE | 2024-05-22 13:40 | XRay Report ---
XR chest 1V portable HISTORY: Sepsis COMPARISON: Chest 04/06/2024. FINDINGS: No pneumothorax. There is mild elevation of the right hemidiaphragm, unchanged. A right jug ular Port-A-Cath remains in the SVC. No new focal lung consolidations to suggest pneumonia. No eviden ce for pulmonary edema. A trace right pleural effusion has improved. No acute fractures. IMPRESSION: 1. No acute process within the chest. 2. A trace right pleural effusion has improved. ACT 112: Negative or not required by law. Electronically signed by: Abundio Ansari M.D. 05/22/2024 1:39 PM
[2024-05-22 13:41] LABS: Basophils # (auto) 0.02 K/uL (0.00-0.20); Basophils % (auto) 0.3 %; Immature Granulocytes # (auto) 0.02 K/uL (0.01-0.20); Immature Granulocytes % (auto) 0.3 %; Lymphocytes # (auto) 0.42 K/uL (1.20-3.40); Lymphocytes % (auto) 5.3 %; Monocytes # (auto) 0.36 K/uL (0.11-0.59); Monocytes % (auto) 4.6 %; Neutrophils # (auto) 7.06 K/uL (1.40-6.50); Neutrophils % (auto) 89.5 %; Toxic Vacuolation 1+
[2024-05-22 13:47] LABS: Adenovirus F 40/41 PCR Not Detected (NotDetected); Astrovirus PCR Not Detected (NotDetected); Campylobacter PCR Not Detected (NotDetected); Cryptosporidium PCR Not Detected (NotDetected); Cyclospora cayetanensis PCR Not Detected (NotDetected); Entamoeba histolytica PCR Not Detected (NotDetected); Enteroaggregative E.coli(EAEC) Not Detected (NotDetected); Enteropathogenic E.coli (EPEC) Not Detected (NotDetected); Enterotoxigenic E.coli (ETEC) Not Detected (NotDetected); Giardia lamblia PCR Not Detected (NotDetected); Norovirus GI/GII PCR Not Detected (NotDetected); Plesiomonas shigelloides PCR Not Detected (NotDetected); Rotavirus A PCR Not Detected (NotDetected); Salmonella PCR Not Detected (NotDetected); Sapovirus PCR Not Detected (NotDetected); Shiga-like Toxin E.coli (STEC) Not Detected (NotDetected); Shigella/Enteroinvasive E.coli Not Detected (NotDetected); Vibrio cholerae PCR Not Detected (NotDetected); Vibrio species PCR Not Detected (NotDetected); Yersinia enterocolitica PCR Not Detected (NotDetected)
[2024-05-22 14:09] LABS: Cdiff Antigen Positive
[2024-05-22 14:26] LABS: Cdiff Toxin A+B Positive Cdiff Toxin (Negative)
[2024-05-22 14:34] LABS: Adenovirus PCR Not Detected (NotDetected); Bordetella parapertussis PCR Not Detected (NotDetected); Bordetella pertussis PCR Not Detected (NotDetected); Chlamydia pneumoniae PCR Not Detected (NotDetected); Coronavirus 229E PCR Not Detected (NotDetected); Coronavirus CoV-2 (COVID19)PCR Not Detected (NotDetected); Coronavirus HKU1 PCR Not Detected (NotDetected); Coronavirus NL63 PCR Not Detected (NotDetected); Coronavirus OC43PCR Not Detected (NotDetected); Human Metapneumovirus PCR Not Detected (NotDetected); Influenza A PCR Not Detected (NotDetected); Influenza B PCR Not Detected (NotDetected); Mycoplasma pneumoniae PCR Not Detected (NotDetected); Parainfluenza Virus 1 PCR Not Detected (NotDetected); Parainfluenza Virus 2 PCR Not Detected (NotDetected); Parainfluenza Virus 3 PCR Not Detected (NotDetected); Parainfluenza Virus 4 PCR Not Detected (NotDetected); Respiratory Syncytial VirusPCR Not Detected (NotDetected); Rhinovirus/Enterovirus PCR Not Detected (NotDetected)
--- NOTE | 2024-05-22 14:48 | History & Physical Report ---
Date of Service May 22, 2024 Assessment & Plan (1) Recurrent Clostridioides difficile infection: Plan: Start Dificid Patient willing to consider Bezlotoxumab therefore will consult ID to discuss this further Consider chronic vancomycin once daily use for prophylaxis following Dificid course (2) Severe aortic stenosis: Plan: Planned TAVR in June Currently euvolemic on exam, no concern for HF, bolus fluids as needed for hypotension Plan VTE Prophylaxis - Lovenox Diet - low fiber Disposition - admit to med/tele Admission and Anticipated Discharge Date Admission Date: May 22, 2024 History of Present Illness Chief Complaint: Watery diarrhea, fever Primary Care Provider: DO Sonia Mishrazabeth Carl is a 78 year old female who presents to the ER with fever 102.8 degrees and watery diarrhea. She has had many episodes of c. diff with treatment including fecal transplants. Most recently she was diagnosed with recurrent c. diff at the beginning of April. She was diagnosed was treated with a prolonged course of tapering Dificid and Rebyota following treatment. She reports finishing the Dificid taper 2 weeks ago. She was doing well until today when she had a recurrent fever this morning and the watery diarrhea restarted. No respiratory, gastrointestinal or urinary symptoms. No recent courses of antib iotics. Allergies Allergy/AdvReac Type Severity Reaction Status Date / Time pollen extracts Allergy Intermediate ITCHY Verified 05/22/24 17:44 EYES, SNEEZING propolis (bee glue) Allergy Intermediate RASH FROM Verified 05/22/24 17:44 SURGICAL GLUE cellulose,oxidized Allergy Mild Rash Verified 05/22/24 17:44 [From Surgicel] latex Allergy Mild contact Verified 05/22/24 17:44 dermatitis nickel Allergy Mild contact Verified 05/22/24 17:44 dermatitis Sulfa (Sulfonamide Allergy Mild RASH Verified 05/22/24 17:44 Antibiotics) Home Medications Medication Instructions Recorded Confirmed Type cholecalciferol (vitamin D3) 50 2,000 units PO QAM 07/27/18 05/22/24 History mcg (2,000 unit) capsule multivitamin 1 tab PO BID 08/21/20 05/22/24 History vitamin B complex 1 tab PO QAM 09/27/20 05/22/24 History ascorbic acid (vitamin C) 500 mg 1,000 mg PO BID 12/28/20 05/22/24 History tablet (Vitamin C) nicotine (polacrilex) 4 mg gum 4 mg buccal Q4H PRN Nicotine 02/08/21 05/22/24 History (Nicorette) Dependence duloxetine 60 mg capsule,delayed 120 mg (2 x 60 mg) PO QAM #180 caps 03/16/23 05/22/24 Rx release (Cymbalta) sodium chloride 2 % eye drops 1 drp ophthalmic (eye) HS 10/23/23 05/22/24 History (Jorge Luis 128) naloxone 4 mg/actuation nasal 4 mg intranasal DIRECTED PRN 11/30/23 05/22/24 Rx spray (Narcan) overdose #2 ea ferrous sulfate 325 mg (65 mg 650 mg PO BID 01/26/24 05/22/24 History iron) tablet (iron) triamterene 37.5 1 tab PO DAILY PRN weight gain #30 02/11/24 05/22/24 Rx mg-hydrochlorothiazide 25 mg tablet tabs gabapentin 600 mg tablet 600 mg PO TID 03/28/24 05/22/24 History melatonin 5 mg tablet 5 mg PO HS 04/06/24 05/22/24 History famotidine 10 mg tablet (Acid 10 mg PO BID #60 tabs 04/09/24 05/22/24 Rx Staff Development Coordinator (famotidine)) magnesium chloride 71.5 mg 71.5 mg PO DAILY #30 tabs 04/10/24 05/22/24 Rx (magnesium chloride) tablet,delayed release (Slow-Mag) mirtazapine 15 mg tablet (Remeron) 15 mg PO HS #90 tabs 04/18/24 05/22/24 Rx oxycodone-acetaminophen 7.5 mg-325 1 tab PO Q6H PRN pain #90 tabs 04/21/24 05/22/24 Rx mg tablet (Percocet) methenamine hippurate 1 gram 1 g PO DAILY #90 tabs 04/26/24 05/22/24 Rx tablet (Hiprex) fentanyl 37.5 mcg/hour transdermal 1 patch transdermal Q72H #10 ea 05/04/24 05/22/24 Rx patch Past Med/Surg History Problem List (Updated 05/22/24 @ 22:01 by Gary Richardson MD) Recurrent Clostridioides difficile infection Acute dehydration (Acute) Acute hypotension (Acute) Fever (Acute) Aortic stenosis (Acute) C. difficile diarrhea (Acute) Acute confusion (Acute) Fever (Acute) Diarrhea (Acute) Weakness (Acute) Recurrent Clostridioides difficile diarrhea Clostridioides difficile infection Gastroesophageal reflux disease Aortic stenosis (Acute) Anemia (Acute) Severe aortic stenosis Carotid stenosis, bilateral Peripheral neuropathy Contact allergic reaction Port-A-Cath in place (01/28/23) Insertion of Access Port right IJ with Fluoroscopy(Right) - Chavo Hubbard, DO, FACS Encounter for pre-operative examination Moderate to severe aortic stenosis Presence of intrathecal pump (Chronic) Battery has February 2021 Impaired fasting glucose (Chronic) Opioid dependence (Chronic) Tubular adenoma of colon (Chronic) Family history of colon cancer (Chronic) Chronic back pain Microcytic anemia Ambulatory dysfunction Pulmonary nodule Abnormal CT scan of lung Arthritis Thoracic aortic aneurysm Coronary artery calcification seen on CAT scan Chronic left hip pain (Acute) Chronic pain of lower extremity, bilateral Anemia (Acute) Moderate mitral regurgitation Persistent insomnia (Chronic) Lumbar canal stenosis (Chronic) Atherosclerosis of aorta (Chronic) follows with Dr. Connor Post laminectomy syndrome (Chronic) Medical History Shortness of breath Bilateral pleural effusion Elevated troponin Chest pain Exertional chest pain Chylothorax Anxiety disorder, unspecified Gastroparesis History of COVID-19 2019 > hospitalized at [facility] Hx of Clostridium difficile infection hx of 2 yrs ago and treated Pleural effusion moderate to large chronic pleural effusion, most recent imaging 01/09/[address] Recurrent UTI COPD (chronic obstructive pulmonary disease) MSSA (methicillin susceptible Staphylococcus aureus) infection (03/2021) Pneumonia due to 2019 novel coronavirus resolved UTI (urinary tract infection) chronic > preventative antibiotic on med list VRE infection (vancomycin resistant Enterococcus) hx of 2 yrs ago > resolved Leukocytosis NSTEMI (non-ST elevated myocardial infarction) pt unaware Mild aortic regurgitation Bacteremia due to Gram-negative bacteria Emphysema of lung Noted on chest CTs but not reported by patient. Presence of intrathecal pump not functioning, reason for Fentanyl patch Degenerative disc disease DVT (deep venous thrombosis) treated inpatient directly following knee replacement. no problems since. 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 and treating with Dr Moseley (oncology) Surgical History Previous back surgery none to cervical spine, x3 total History of colonoscopy History of laminectomy lumbar ~2013 Status post laminectomy with spinal fusion lumbar, 2007 & 2008 H/O cataract removal with insertion of prosthetic lens bilateral S/P hip replacement (2016) bilateral 2015, 2016 History of knee replacement procedure of right knee 2002 History of cholecystectomy 1977 Family History Father Abdominal aneurysm Colorectal cancer Grandmother (Paternal) Cancer Throat Other No family history of adverse response to anesthesia Denies family history of Ovarian cancer Prostate cancer Myocardial infarction Breast cancer Social History Smoking Status: Former smoker Tobacco Type: Cigarettes packs per day: 2; Second Hand Exposure: No; Do You Dip or Chew Tobacco: No; Hx Alcohol Use: No Hx Substance Use: No Preferred Language: Occitan Communication Ability: Effective Visual Impairment: Limited Hearing Ability: Normal Drier And Pulverizer Tender Required: No Beliefs That Will Affect Care: None marital status: / Current Living Situation: Alone current occupational status: retired How many Children do You have: 2 Feels Safe at Home: Yes Safety Concerns: Feels Safe At This Time Childhood Exposure to Second-Hand Smoke: Yes Diet: regular caffeine: Yes (drinks coffee daily ) during the past year weight has: decreased > 10 lbs Dental Care, Regularly: No Physical Activity Frequency: Does not Exercise Seatbelt Use: always Sunscreen Use: Yes Assistive Devices: Denture - Upper, Denture - Lower, Glasses and Walker Review of Systems Review of Systems: All systems reviewed & are unremarkable except as noted in HPI & below Physical Exam Constitutional: well developed and + acute distress (headache); + not well nourished Eyes: PERRL, conjunctivae normal, anicteric sclerae ENMT: Mouth: oral mucous membranes not dry Respiratory: normal respiratory effort, lungs clear to auscultation Cardiovascular: Rate/Rhythm: regular rate and regular rhythm Heart Sounds: + murmur (systolic ejection murmur loudest at LUSB) Extremities: normal capillary refill; no calf tenderness and no pedal edema Gastrointestinal (Abdomen): normal bowel sounds, soft, nontender, no hepatosplenomegaly Musculoskeletal: no cyanosis or clubbing, extremities motor strength 5/5 Skin: no rashes, warm and dry Neurologic: moves all extremities and awake; not confused Psychiatric: A+Ox3, euthymic affect Genitourinary: no CVA tenderness Results & Data Results & Data Vital Signs (Past 12 Hours) Vital Signs Temp Pulse Pulse Resp BP BP Pulse Ox 05/22/24 13:38 105 H 18 129/73 96 05/22/24 12:55 97 H 05/22/24 11:24 37.7 C H 109 H 20 82/49 L 98 O2 Del Method 05/22/24 13:38 Room Air 05/22/24 12:55 05/22/24 11:24 Room Air Laboratory Results Abnormal lab results 05/22/24 05/22/24 Range/Units 11:29 12:47 RDW Std Deviation 47.9 H (36.4-46.3) fL RDW Coeff of Inge 15.0 H (11.5-14.5) % Neut # (Auto) 7.06 H (1.40-6.50) K/uL Lymph # (Auto) 0.42 L (1.20-3.40) K/uL BUN 24 H (6-23) mg/dl BUN/Creatinine Ratio 28.9 H (10-20) Glucose 108 H (70-99(Fasting)) mg/dl Troponin I High Sens 28.2 H (0-14) pg/ml Stl C. diff Tox B Gene Positive Cdiff Gene H (Neg) Stl C.difficile Tox A&B Positive Cdiff Toxin A* (Negative) Diagnostic Findings XR chest 1V portable HISTORY: Sepsis COMPARISON: Chest 04/06/2024. FINDINGS: No pneumothorax. There is mild elevation of the right hemidiaphragm, unchanged. A right jugular Port-A-Cath remains in the SVC. No new focal lung consolidations to suggest pneumonia. No evidence for pulmonary edema. A trace right pleural effusion has improved. No acute fractures. IMPRESSION: 1. No acute process within the chest. 2. A trace right pleural effusion has improved. Medications Administered ER Medications Given: Normal saline @125ml/hr Dificid 200mg PO Code Status & VTE Plan Code Status Full PG Care Time/CCT Total # of Minutes Spent Total Time Spent with Patient: Total time spent is greater than 50% in coordination of care (as documented) at patient's floor/unit and/or counseling patient: Coding Level of Care Code 09481 INT INP/OBS CARE Diagnoses Recurrent Clostridioides difficile infection A49.8 Severe aortic stenosis I35.0
[2024-05-22] MEDS: ACETAMINOPHEN 325 MG TAB ONE (17:00)
[2024-05-22] MEDS ORDERED: NICOTINE POLACRILEX 2 MG GUM MT PRN (18:50)
[2024-05-22] MEDS: ASCORBIC ACID 500 MG TAB PO SCH (20:02)
[2024-05-22] MEDS: FIDAXOMICIN 200 MG TAB PO SCH ×2 (20:02→20:14)
[2024-05-22] MEDS: MELATONIN 3 MG TAB PO SCH (20:02)
[2024-05-22] MEDS: FERROUS SULFATE 325 MG TAB PO SCH (20:02)
[2024-05-22] MEDS: FAMOTIDINE 10 MG TABLET PO SCH (20:02)
[2024-05-22] MEDS: GABAPENTIN 600 MG TAB PO SCH (20:02)
[2024-05-22] MEDS: ARTIFICIAL TEARS OP SCH (20:03)
[2024-05-22] MEDS: MIRTAZAPINE TAB 15 MG TAB PO SCH (20:03)
[2024-05-22] MEDS: fentaNYL 25 MCG/HR TDSY TD SCH (20:03)
[2024-05-22] MEDS: fentaNYL 12 MCG/HR TDSY TD SCH (20:03)
[2024-05-22] MEDS: ACETAMINOPHEN 325 MG TAB PO PRN (23:32)
[2024-05-22] MEDS: CHECK fentaNYL PATCH PLACEMENT SCH ×2 (23:44)
[2024-05-22] MEDS: LACTATED RINGER'S 250 ML IV ONE (23:49)
[2024-05-23] MEDS: LACTATED RINGER'S 250 ML IV ONE (00:21)
[2024-05-23 06:45] LABS: Magnesium 1.8 mg/dl (1.7-2.4)
[2024-05-23 07:21] LABS: Hematocrit (blood only) 31.3 % (37.0-47.0); Hemoglobin 10.1 g/dl (12.0-16.0); Mean Corpuscular Hemoglobin 28.6 pg (25.0-34.0); Mean Corpuscular Hgb Conc 32.3 g/dL (32.0-36.0); Mean Corpuscular Volume 88.7 fL (80.0-100.0); Mean Platelet Volume 10.8 fL (9.4-12.4); Platelet Count 189 K/uL (130-400); RDW Coefficient of Variation 15.3 % (11.5-14.5); RDW Standard Deviation 49.7 fL (36.4-46.3); Red Blood Count 3.53 M/uL (4.20-5.40); White Blood Count 5.83 K/ul (4.8-10.8)
[2024-05-23 07:22] LABS: Albumin Globulin Ratio 1.5 (0.9-2); Albumin Level 3.2 gm/dl (3.4-5.0); BUN Creatinine Ratio 26.7 (10-20); Bilirubin,Total 0.4 mg/dl (0.2-1.0); Calcium 8.2 mg/dl (8.6-10.3); Creatinine Clr Calc Pharmacy 49.3 ml/min; Est GFR (African American) 75.5 ml/min; Est GFR (Non-African American) 65.2 ml/min; Globulin 2.2 gm/dl (2.5-4.0); Phosphorus 3.4 mg/dl (2.5-4.9); Total Protein 5.4 gm/dl (6.0-8.3)
--- NOTE | 2024-05-23 07:43 | Hospitalist Progress Note ---
Date of Service May 23, 2024 Assessment & Plan (1) Recurrent Clostridioides difficile infection: Plan: Recurrent Cdiff after completing extended course of Dificid at the end of April and Rebyota suppository on May 09 presented with hypotension/fever/diarrhea. COVID contact but Biofire negative Stool biofire +cdiff gene/toxin Isolation precautions Started Dificid 200mg BID, will plan for extended course again with 200mg BID x 10 days followed by daily x 20 day course. ID consult pending Did call [facility] for discussion w/ GI/IM and discussed if improving on current treatment (she is, only 1 bowel movement this morning) to continue current course but if worsened consider tx to tertiary w/ fecal transplant capabilities (ie [facility] does NOT do these) vs surgery consult for colectomy. Given improvement, continue on dificid for now ID consult pending, discussed w/ them this morning as well as GI composition worker [facility] to contact her GI provider to work on Beztoxlumab as outpatient once improvement but doesn't need to be done at end of course but would wait for clinical improvement prior. F/u final ID consultation. Did message her PCP Dr Dong as well regarding inpatient stay and recs for Dificid and will message final recs to get working on prescription being sent (daughter contacted/updated and works as drug rep and was able to arrange for deliver to her home over the weekend last time Mr Henry was in in April) Monitor diarrhea, or for any other fevers/worsening abdominal pain or clinical decline WBC wnl, no further fevers for today (temp 38C yesterday). Blood cultures pending K 3.0, PO replacement ordered Mag stable, continue BID supplementation as started last admission to keep stores stable Holding off additional IVF for now but if becomes significantly hypotensive can give small boluses (was given 250cc x 2 in ER, additional 250cc on admission). Cautious use w/ her significant aortic stenosis which she is to have repair for this upcoming June however may need to touch base w/ cards provider to ensure not needing to reschedule given current infection Monitor labs/exam on repeat (2) Severe aortic stenosis: Plan: Planned TAVR in June Currently euvolemic on exam, no concern for HF, bolus fluids as needed for hypotension. 92% on RA, monitor for any volume overload but suspect w/ diarrheal losses on drier operator head side. Was provided 250NSS bolus x 2 in ER, additional 2 overnight. Monitor for any signifciant hypotension/need for bolus but cautious and would continue smaller volume bolus and reassess to prevent overloading her w/ her severe BP 94/62, BUN/Cr 23/0.86 continue to monitor (3) Hypokalemia: Plan: 3.0, PO replacement ordered. Mag 1.9, wnl. A Continue BID mag replacement Monitor chemistries in AM/electrolyte replacement in AM Montioring on tele Plan VTE Prophylaxis - Lovenox SQ while inpatient Updated daughter 05/23 after discussion w/ C and contacted PCP and will message regarding recs and can see if able to send dificid. Admission and Anticipated Discharge Date Admission Date: May 22, 2024 Supervising Physician Co-Signing Physician Notes The patient was not seen by me. The chart was reviewed. Case discussed with MAUDE Galarza. Agree with assessment and plan Subjective Evaluated this morning, sitting up in bed reading. Reports diarrhea slowed, feeling better today. Had one BM this morning, continues on dificid. Discussed I reached out to [facility] to discuss, recs to continue current tx if improving but if worsened would consider calling to transfer to facility that does transplants vs if acute worsening/abd (doesn't appear as such) needing surgery/colectomy. ID consult pending, but continuing current course. [facility] to notify her GI provider about bezlotoxumab which is to be at end of extended Dificid course. no CP/SOB. Mag stable on replacement which she notes she has continued. K low likely from diarrhea and replacement ordered and will monitor. Ok to call daughter w/ update- done. Also contacted PCP Dr Dong of admission and awaiting ID recs and will message once finalized to get process moving. Questions/concerns addressed at this time. Physical Exam Physical Exam: General: 78yo female sitting up in bed, reading paper, NAD, appears/reports feeling improved HEENT: atraumatic, normocephalic, mm moist, trachea midline port to R chest, covered, no evidence for infection Resp: even/unlabored, no significant w/c/r, slightly diminished in the bases, on room air 94% CV: RRR, SIGNIFICANT systolic murmur, S1, quiet S2, no significant LE edema/calf tenderness GI: +distension but soft/no overt tenderness, no rebound/guarding : no focal MSK/Neuro: nonfocal, no slurred speech, answering questions appropriately Psych:AOx3, cooperative with exam Results & Data Results & Data Vital Signs (Past 12 Hours) Vital Signs Temp Pulse Pulse Resp BP BP Pulse Ox 05/23/24 07:22 71 05/23/24 04:00 38.0 C H 05/23/24 03:19 38.5 C H 87 18 95/59 L 87/50 L 90 05/23/24 01:48 94/55 L 05/23/24 00:46 37.0 C 87/52 L 90/52 L 05/23/24 00:08 38.0 C H 93/52 L 05/22/24 23:03 38.8 C H 90 18 90/53 L 92 05/22/24 21:59 88 05/22/24 20:08 36.8 C O2 Del Method 05/23/24 07:22 05/23/24 04:00 05/23/24 03:19 Room Air 05/23/24 01:48 05/23/24 00:46 05/23/24 00:08 05/22/24 23:03 Room Air 05/22/24 21:59 05/22/24 20:08 Laboratory Results 05/23/24 05/23/24 05/22/24 Range/Units 05:33 05:27 14:43 WBC 5.83 (4.8-10.8) K/ul RBC 3.53 L (4.20-5.40) M/uL Hgb 10.1 L (12.0-16.0) g/dl Hct 31.3 L (37.0-47.0) % MCV 88.7 (80.0-100.0) fL MCH 28.6 (25.0-34.0) pg MCHC 32.3 (32.0-36.0) g/dL RDW Std Deviation 49.7 H (36.4-46.3) fL RDW Coeff of Inge 15.3 H (11.5-14.5) % Plt Count 189 (130-400) K/uL MPV 10.8 (9.4-12.4) fL Immature Gran % (Auto) 0.0 % Neut % (Auto) 71.2 % Lymph % (Auto) 17.3 % Weber % (Auto) 8.6 % Eos % (Auto) 2.4 % Baso % (Auto) 0.5 % Neut # (Auto) 4.15 (1.40-6.50) K/uL Lymph # (Auto) 1.01 L (1.20-3.40) K/uL Weber # (Auto) 0.50 (0.11-0.59) K/uL Eos # (Auto) 0.14 (0.00-0.50) K/uL Baso # (Auto) 0.03 (0.00-0.20) K/uL Immature Gran # (Auto) 0.00 L (0.01-0.20) K/uL Toxic Vacuolation Dohle Bodies 1+ Sodium 139 (136-145) mmol/L Potassium 3.0 L (3.5-5.1) mmol/L Chloride 106 (98-107) mmol/L Carbon Dioxide 26 (21-32) mmol/L Anion Gap 7 (3-11) BUN 23 (6-23) mg/dl Creatinine 0.86 (0.6-1.2) mg/dl Est Cr Clr Drug Dosing 49.3 ml/min Est GFR ( Amer) 75.5 ml/min Est GFR (Non-Af Amer) 65.2 ml/min BUN/Creatinine Ratio 26.7 H (10-20) Glucose 99 (70-99(Fasting)) mg/dl Lactate 0.7 (0.4-2.0) mmol/L Calcium 8.2 L (8.6-10.3) mg/dl Phosphorus 3.4 (2.5-4.9) mg/dl Magnesium 1.8 (1.7-2.4) mg/dl Total Bilirubin 0.4 D (0.2-1.0) mg/dl Direct Bilirubin (0-0.2) mg/dl AST 17 (13-39) U/L ALT 13 (7-52) U/L Alkaline Phosphatase 51 (34-104) U/L Troponin I High Sens 27.3 H (0-14) pg/ml Total Protein 5.4 L (6.0-8.3) gm/dl Albumin 3.2 L (3.4-5.0) gm/dl Globulin 2.2 L (2.5-4.0) gm/dl Albumin/Globulin Ratio 1.5 (0.9-2) Procalcitonin (0-0.5) ng/ml Stl C. cayetanensis PCR (NotDetected) Stool Rotavirus A PCR (NotDetected) Stl Adenov F 40/41 PCR (NotDetected) Stool Astrovirus (PCR) (NotDetected) Stool Campylobacter PCR (NotDetected) Stl C. diff Tox B Gene (Neg) Stl C.difficile Tox A&B (Negative) Stool Cryptosporidium PCR (NotDetected) Stl E.coli Shiga Tox PCR (NotDetected) Stl Enterotoxigenic E PCR (NotDetected) Stool EPEC (PCR) (NotDetected) Stool EAEC (PCR) (NotDetected) Stl E. histolytica PCR (NotDetected) Stool Giardia Lamblia PCR (NotDetected) Stool Salmonella PCR (NotDetected) Stool Sapovirus (PCR) (NotDetected) Stl P. shigelloides PCR (NotDetected) Stl Shigella/EIEC PCR (NotDetected) St Y.enterocolitica PCR (NotDetected) Stool Vibrio (PCR) (NotDetected) Stl Vibrio cholerae PCR (NotDetected) Stl Norovirus GI/GII PCR (NotDetected) Adenovirus (PCR) (NotDetected) B. pertussis DNA (PCR) (NotDetected) B.parapertussis DNA PCR (NotDetected) C. pneumoniae DNA (PCR) (NotDetected) Coronavirus OC43 (PCR) (NotDetected) Coronavirus HKU1 (PCR) (NotDetected) Coronavirus 229E (PCR) (NotDetected) SARS-CoV-2 (PCR) (NotDetected) Coronavirus NL63 (PCR) (NotDetected) Human Metapneumovir PCR (NotDetected) Influenza Type A (PCR) (NotDetected) Influenza Type B (PCR) (NotDetected) M. pneumoniae (PCR) (NotDetected) Parainfluenza 1 (PCR) (NotDetected) Parainfluenza 2 (PCR) (NotDetected) Parainfluenza 3 (PCR) (NotDetected) Parainfluenza 4 (PCR) (NotDetected) RSV (PCR) (NotDetected) Entero/Rhino (PCR) (NotDetected) 05/22/24 05/22/24 05/22/24 Range/Units 13:09 12:47 11:29 WBC 7.88 (4.8-10.8) K/ul RBC 4.24 (4.20-5.40) M/uL Hgb 12.0 (12.0-16.0) g/dl Hct 37.3 (37.0-47.0) % MCV 88.0 (80.0-100.0) fL MCH 28.3 (25.0-34.0) pg MCHC 32.2 (32.0-36.0) g/dL RDW Std Deviation 47.9 H (36.4-46.3) fL RDW Coeff of Inge 15.0 H (11.5-14.5) % Plt Count 219 (130-400) K/uL MPV 10.1 (9.4-12.4) fL Immature Gran % (Auto) 0.3 % Neut % (Auto) 89.5 % Lymph % (Auto) 5.3 % Weber % (Auto) 4.6 % Eos % (Auto) 0.0 % Baso % (Auto) 0.3 % Neut # (Auto) 7.06 H (1.40-6.50) K/uL Lymph # (Auto) 0.42 L (1.20-3.40) K/uL Weber # (Auto) 0.36 (0.11-0.59) K/uL Eos # (Auto) 0.00 (0.00-0.50) K/uL Baso # (Auto) 0.02 (0.00-0.20) K/uL Immature Gran # (Auto) 0.02 (0.01-0.20) K/uL Toxic Vacuolation 1+ Dohle Bodies Sodium 136 (136-145) mmol/L Potassium 3.5 (3.5-5.1) mmol/L Chloride 103 (98-107) mmol/L Carbon Dioxide 27 (21-32) mmol/L Anion Gap 6 (3-11) BUN 24 H (6-23) mg/dl Creatinine 0.83 (0.6-1.2) mg/dl Est Cr Clr Drug Dosing 49.0 ml/min Est GFR ( Amer) 78.8 ml/min Est GFR (Non-Af Amer) 68.0 ml/min BUN/Creatinine Ratio 28.9 H (10-20) Glucose 108 H (70-99(Fasting)) mg/dl Lactate 0.7 (0.4-2.0) mmol/L Calcium 9.1 (8.6-10.3) mg/dl Phosphorus (2.5-4.9) mg/dl Magnesium 1.7 (1.7-2.4) mg/dl Total Bilirubin 1.0 (0.2-1.0) mg/dl Direct Bilirubin 0.1 (0-0.2) mg/dl AST 28 (13-39) U/L ALT 15 (7-52) U/L Alkaline Phosphatase 62 (34-104) U/L Troponin I High Sens 28.2 H (0-14) pg/ml Total Protein 6.4 (6.0-8.3) gm/dl Albumin 4.0 (3.4-5.0) gm/dl Globulin (2.5-4.0) gm/dl Albumin/Globulin Ratio (0.9-2) Procalcitonin 0.18 (0-0.5) ng/ml Stl C. cayetanensis PCR Not Detected (NotDetected) Stool Rotavirus A PCR Not Detected (NotDetected) Stl Adenov F 40/41 PCR Not Detected (NotDetected) Stool Astrovirus (PCR) Not Detected (NotDetected) Stool Campylobacter PCR Not Detected (NotDetected) Stl C. diff Tox B Gene Positive Cdiff Gene H (Neg) Stl C.difficile Tox A&B Positive Cdiff Toxin A* (Negative) Stool Cryptosporidium PCR Not Detected (NotDetected) Stl E.coli Shiga Tox PCR Not Detected (NotDetected) Stl Enterotoxigenic E PCR Not Detected (NotDetected) Stool EPEC (PCR) Not Detected (NotDetected) Stool EAEC (PCR) Not Detected (NotDetected) Stl E. histolytica PCR Not Detected (NotDetected) Stool Giardia Lamblia PCR Not Detected (NotDetected) Stool Salmonella PCR Not Detected (NotDetected) Stool Sapovirus (PCR) Not Detected (NotDetected) Stl P. shigelloides PCR Not Detected (NotDetected) Stl Shigella/EIEC PCR Not Detected (NotDetected) St Y.enterocolitica PCR Not Detected (NotDetected) Stool Vibrio (PCR) Not Detected (NotDetected) Stl Vibrio cholerae PCR Not Detected (NotDetected) Stl Norovirus GI/GII PCR Not Detected (NotDetected) Adenovirus (PCR) Not Detected (NotDetected) B. pertussis DNA (PCR) Not Detected (NotDetected) B.parapertussis DNA PCR Not Detected (NotDetected) C. pneumoniae DNA (PCR) Not Detected (NotDetected) Coronavirus OC43 (PCR) Not Detected (NotDetected) Coronavirus HKU1 (PCR) Not Detected (NotDetected) Coronavirus 229E (PCR) Not Detected (NotDetected) SARS-CoV-2 (PCR) Not Detected (NotDetected) Coronavirus NL63 (PCR) Not Detected (NotDetected) Human Metapneumovir PCR Not Detected (NotDetected) Influenza Type A (PCR) Not Detected (NotDetected) Influenza Type B (PCR) Not Detected (NotDetected) M. pneumoniae (PCR) Not Detected (NotDetected) Parainfluenza 1 (PCR) Not Detected (NotDetected) Parainfluenza 2 (PCR) Not Detected (NotDetected) Parainfluenza 3 (PCR) Not Detected (NotDetected) Parainfluenza 4 (PCR) Not Detected (NotDetected) RSV (PCR) Not Detected (NotDetected) Entero/Rhino (PCR) Not Detected (NotDetected) PG Care Time/CCT Total # of Minutes Spent Total Time Spent with Patient: Total time spent is greater than 50% in coordination of care (as documented) at patient's floor/unit and/or counseling patient: Coding Level of Care Code 27721 SUB INP/OBS CARE 3/50MIN Diagnoses Recurrent Clostridioides difficile infection A49.8 Severe aortic stenosis I35.0 Hypokalemia E87.6
[2024-05-23 07:46] LABS: Basophils # (auto) 0.03 K/uL (0.00-0.20); Basophils % (auto) 0.5 %; Dohle Bodies 1+; Eosinophils # (auto) 0.14 K/uL (0.00-0.50); Eosinophils % (auto) 2.4 %; Lymphocytes # (auto) 1.01 K/uL (1.20-3.40); Lymphocytes % (auto) 17.3 %; Monocytes % (auto) 8.6 %; Neutrophils # (auto) 4.15 K/uL (1.40-6.50); Neutrophils % (auto) 71.2 %
[2024-05-23] MEDS: ACETAMINOPHEN 500 MG TAB PO SCH (08:04)
[2024-05-23] MEDS: POTASSIUM CHLORIDE CRTAB 20 MEQ TABCR PO STA ×2 (08:04→16:57)
[2024-05-23] MEDS: MAGNESIUM CHLORIDE W/CALCIUM 64MG DELAYED REL TAB PO SCH (08:06)
[2024-05-23] MEDS: MULTIVITAMIN TAB PO SCH (08:06)
[2024-05-23] MEDS: CHOLECALCIFEROL 25 MCG (1000 UNITS) TAB PO SCH (08:06)
[2024-05-23] MEDS: DULoxetine HCL 60 MG CAP PO SCH (08:06)
[2024-05-23] MEDS: VITAMIN B COMPLEX TAB PO SCH (08:06)
[2024-05-23] MEDS: oxyCODONE/APAP 7.5/325MG TAB PO PRN (08:13)
[2024-05-23] MEDS: ENOXAPARIN INJ 40 MG/0.4 ML SYR SQ SCH (09:37)
--- NOTE | 2024-05-23 12:29 | Electrocardiogram Report ---
Test Reason : Blood Pressure : / mmHG Vent. Rate : 090 BPM Atrial Rate : 090 BPM P-R Int : 142 ms QRS Dur : 094 ms QT Int : 394 ms P-R-T Axes : 076 053 076 degrees QTc Int : 481 ms Normal sinus rhythm Possible Left atrial enlargement Nonspecific ST and T wave abnormality Prolonged QT Abnormal ECG When compared with ECG of 06-APR-2024 12:54, Premature atrial complexes are no longer Present Nonspecific T wave abnormality now evident in Inferior leads Nonspecific T wave abnormality now evident in Anterolateral leads Confirmed by Scott Aiken [id number]) on 05/23/2024 12:29:32 PM Referred By: Confirmed By:Scott Aiken
--- NOTE | 2024-05-23 14:53 | Infectious Disease Consult ---
Date of Consultation May 23, 2024 Assessment & Plan (1) Recurrent Clostridioides difficile infection: (2) Aortic stenosis: (3) C. difficile diarrhea: (4) Diarrhea: Plan ID Problem List: # Recurrent C. 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 diff s/p fidaxomicin BID x10d -> qOD for 20d and Rebyota pt believes on 05/09), who presents to [facility] ED on 05/22/24 with fever and watery diarrhea. 05/22 stool panel + C. diff gene and C. diff toxin A. ID is consulted for recurrence of C. diff. She was recently admitted to [facility] 04/0604/10/24 for diarrhea, fever, and hypotension. Stool testing + C. diff gene PCR but negative toxin. She was seen by ID and given her fever, abdominal pain, and diarrhea, her presentation was favored to be recurrent C. diff. [facility] was contacted and did not recommend urgent inpatient fecal transplant or transfer. She was initally on PO vancomycin, then changed to PO fidaxomicin. Per ID, she was continued on fidaxomicin 200 mg PO BID x 10d then 200mg every other day x 20 days as per [facility]. She was also planned for Rebyota outpatient. This presentation, she developed fever T102.8F and watery diarrhea. She completed her fidaxomicin taper 2 weeks ago. She received Rebyota (patient believes this was on 05/09). She was doing well until 05/22, at which time she had a recurrent fever and the watery diarrhea restarted (estimated 7-8 BMs/day). No respiratory, gastrointestinal or urinary symptoms. No recent courses of antibiotics. In the ED, T38 (TMax 38.5) BP 93/52 HR 87. WBC 7.88. Cr 0.83. LFTs wnl. She was restarted on fidaxomicin on 05/22/24. On 05/23, the primary team contacted [facility] which said to continue fidaxomicin, consider bezlotoxumab outpatient, and if significant worsening while inpatient then would at that time consider possibility of transplant for FMT. At the time of evaluation, the patient is feeling well. Now afebrile. WBC 5.83. Denies abd pain. BMs have slowed to ~2/day thus far as of the afternoon. She previously followed with [facility], and wishes to be referred to outpatient GI for further care. Discussion Presenting with watery diarrhea and fevers, + C. diff gene and + toxin A, consistent with a recurrence of CDI. Patients C. diff has been recurrent despite numerous courses of treatment/tapers and most recently even despite treating with Rebyota on 05/09. She did have prior success with FMT in 2019 however had recurrent C. diff episodes again starting in February 2024 (potentially precipitated by receiving 1 day of abx during an admission for possible pna for which she received 1d of cefepime and azithromycin 01/2024). Will re-treat with fidaxomicin (200 mg PO BID for 10 days, followed by taper to every other day). In this instance, would continue every other day dosing for at least 20 days, and actually continue at the every other day dosing indefinitely until outpatient GI follow-up (in case further upcoming intervention such as repeat Rebyota or FMT are desired). If improving and will be discharging, recommend to administer bezlotoxumab in outpatient infusion center (ideally to be done while still on fidaxomicin at treatment dosing). Note that there is a risk of heart failure in patients with CHF pt with awaiting TAVR, not primarily with CHF (no CHF at baseline, has been euvolemic). Recommend to refer to outpatient GI can re-refer to [facility], or per primary team, [facility] may still perform FMT. Would continue to discuss FMT vs. repeat Rebyota, given multiple recurrences thus far. Recommendations: - Continue fidaxomicin 200 mg PO BID to complete a 10-day course (05/22 -05/31), followed by fidaxomicin 200 mg PO every other day for at least 20 days (05/3106/19/24), then continue fidaxomicin 200 mg PO every other day indefinitely until outpatient GI follow-up - When improving and discharging, recommend to administer bezlotoxumab 10 mg/kg IV x1 dose in outpatient infusion center (tentatively on 05/24 or 05/25). Will require coordination with case management and ID pharmacy - Ensure close follow-up with GI as an outpatient. Recommend to refer to outpatient GI can re-refer to [facility], or per primary team, [facility] may still perform FMT. Continue to discuss possibility of repeat FMT vs. repeat Rebyota with outpatient GI - If having clinical worsening, reevaluate for transfer to tertiary care for urgent FMT - If requiring systemic antibiotics in the future, recommend starting vancomycin 125 mg PO once daily for prophylaxis and then continue for 7 days after completion of abx Plan discussed with MAUDE Galarza. Thank you for letting ID participate in the care of this patient. ID will sign off at this time. If questions, please contact the [facility] call center at [phone]. Kassi Nunez MD, M[facility] Infectious Diseases [facility] direct line: [phone] Consultation Information Consultation was provided via telemedicine using two-way real-time interactive telecommunication between the patient and the telemedicine provider. For the duration of the visit, the provider was performing the assessment from a different facility than the patient. This includesuse of bluetooth stethoscope forauscultationperformed by the telepresenter that the telemedicine provider can hear if described in the physical exam. Director Of Institutional Giving contact information: Please call [facility] Call Center . (Phone Number For Physician Use Only) After establishing a telemedicine visit, patient was: Patient was verified with two unique identifiers, Patient/authorized rep acknowledged consent and understanding and Gave permission to continue telehealth session Time Spent with Patient: Initial => 75 min History of Present Illness Reason for Consultation: C. 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 diff s/p fidaxomicin BID x10d -> qOD for 20d and Rebyota pt believes on 05/09), who presents to [facility] ED on 05/22/24 with fever and watery diarrhea. 05/22 stool panel + C. diff gene and C. diff toxin A. ID is consulted for recurrence of C. diff. She was recently admitted to [facility] 04/0604/10/24 for diarrhea, fever, and hypotension. Stool testing + C. diff gene PCR but negative toxin. She was seen by ID and given her fever, abdominal pain, and diarrhea, her presentation was favored to be recurrent C. diff. [facility] was contacted and did not recommend urgent inpatient fecal transplant or transfer. She was initally on PO vancomycin, then changed to PO fidaxomicin. Per ID, she was continued on fidaxomicin 200 mg PO BID x 10d then 200mg every other day x 20 days as per [facility]. She was also planned for Rebyota outpatient. This presentation, she developed fever T102.8F and watery diarrhea. She completed her fidaxomicin taper 2 weeks ago. She received Rebyota (patient believes this was on 05/09). She was doing well until 05/22, at which time she had a recurrent fever and the watery diarrhea restarted (estimated 7-8 BMs/day). No respiratory, gastrointestinal or urinary symptoms. No recent courses of antibiotics. In the ED, T38 (TMax 38.5) BP 93/52 HR 87. WBC 7.88. Cr 0.83. LFTs wnl. She was restarted on fidaxomicin on 05/22/24. On 05/23, the primary team contacted [facility] which said to continue fidaxomicin, consider bezlotoxumab outpatient, and if significant worsening while inpatient then would at that time consider possibility of transplant for FMT. At the time of evaluation, the patient is feeling well. Now afebrile. WBC 5.83. Denies abd pain. BMs have slowed to ~2/day thus far as of the afternoon. She previously followed with [facility], and wishes to be referred to outpatient GI for further care. Allergies Allergy/AdvReac Type Severity Reaction Status Date / Time pollen extracts Allergy Intermediate ITCHY Verified 05/22/24 17:44 EYES, SNEEZING propolis (bee glue) Allergy Intermediate RASH FROM Verified 05/22/24 17:44 SURGICAL GLUE cellulose,oxidized Allergy Mild Rash Verified 05/22/24 17:44 [From Surgicel] latex Allergy Mild contact Verified 05/22/24 17:44 dermatitis nickel Allergy Mild contact Verified 05/22/24 17:44 dermatitis Sulfa (Sulfonamide Allergy Mild RASH Verified 05/22/24 17:44 Antibiotics) Home Medications Medication Instructions Recorded Confirmed Type cholecalciferol (vitamin D3) 50 2,000 units PO QAM 07/27/18 05/22/24 History mcg (2,000 unit) capsule multivitamin 1 tab PO BID 08/21/20 05/22/24 History vitamin B complex 1 tab PO QAM 09/27/20 05/22/24 History ascorbic acid (vitamin C) 500 mg 1,000 mg PO BID 12/28/20 05/22/24 History tablet (Vitamin C) nicotine (polacrilex) 4 mg gum 4 mg buccal Q4H PRN Nicotine 02/08/21 05/22/24 History (Nicorette) Dependence duloxetine 60 mg capsule,delayed 120 mg (2 x 60 mg) PO QAM #180 caps 03/16/23 05/22/24 Rx release (Cymbalta) sodium chloride 2 % eye drops 1 drp ophthalmic (eye) HS 10/23/23 05/22/24 History (Jorge Luis 128) naloxone 4 mg/actuation nasal 4 mg intranasal DIRECTED PRN 11/30/23 05/22/24 Rx spray (Narcan) overdose #2 ea ferrous sulfate 325 mg (65 mg 650 mg PO BID 01/26/24 05/22/24 History iron) tablet (iron) triamterene 37.5 1 tab PO DAILY PRN weight gain #30 02/11/24 05/22/24 Rx mg-hydrochlorothiazide 25 mg tablet tabs gabapentin 600 mg tablet 600 mg PO TID 03/28/24 05/22/24 History melatonin 5 mg tablet 5 mg PO HS 04/06/24 05/22/24 History famotidine 10 mg tablet (Acid 10 mg PO BID #60 tabs 04/09/24 05/22/24 Rx Agricultural Education Instructor (famotidine)) magnesium chloride 71.5 mg 71.5 mg PO DAILY #30 tabs 04/10/24 05/22/24 Rx (magnesium chloride) tablet,delayed release (Slow-Mag) mirtazapine 15 mg tablet (Remeron) 15 mg PO HS #90 tabs 04/18/24 05/22/24 Rx oxycodone-acetaminophen 7.5 mg-325 1 tab PO Q6H PRN pain #90 tabs 04/21/24 05/22/24 Rx mg tablet (Percocet) methenamine hippurate 1 gram 1 g PO DAILY #90 tabs 04/26/24 05/22/24 Rx tablet (Hiprex) fentanyl 37.5 mcg/hour transdermal 1 patch transdermal Q72H #10 ea 05/04/24 05/22/24 Rx patch Patient History Medical History Shortness of breath Bilateral pleural effusion Elevated troponin Chest pain Exertional chest pain Chylothorax Anxiety disorder, unspecified Gastroparesis History of COVID-19 2019 > hospitalized at [facility] Hx of Clostridium difficile infection hx of 2 yrs ago and treated Pleural effusion moderate to large chronic pleural effusion, most recent imaging 01/09/[address] Recurrent UTI COPD (chronic obstructive pulmonary disease) MSSA (methicillin susceptible Staphylococcus aureus) infection (03/2021) Pneumonia due to 2018 novel coronavirus resolved UTI (urinary tract infection) chronic > preventative antibiotic on med list VRE infection (vancomycin resistant Enterococcus) hx of 2 yrs ago > resolved Leukocytosis NSTEMI (non-ST elevated myocardial infarction) pt unaware Mild aortic regurgitation Bacteremia due to Gram-negative bacteria Emphysema of lung Noted on chest CTs but not reported by patient. Presence of intrathecal pump not functioning, reason for Fentanyl patch Degenerative disc disease DVT (deep venous thrombosis) treated inpatient directly following knee replacement. no problems since. 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 and treating with Dr Moseley (oncology) Surgical History Previous back surgery none to cervical spine, x3 total History of colonoscopy History of laminectomy lumbar ~2013 Status post laminectomy with spinal fusion lumbar, 2007 & 2008 H/O cataract removal with insertion of prosthetic lens bilateral S/P hip replacement (2016) bilateral 2015, 2016 History of knee replacement procedure of right knee 2002 History of cholecystectomy 1977 Family History Father Abdominal aneurysm Colorectal cancer Grandmother (Paternal) Cancer Throat Other No family history of adverse response to anesthesia Denies family history of Ovarian cancer Prostate cancer Myocardial infarction Breast cancer Social History Smoking Status: Former smoker Tobacco Type: Cigarettes packs per day: 2; Second Hand Exposure: No; Do You Dip or Chew Tobacco: No; Hx Alcohol Use: No Hx Substance Use: No Preferred Language: Occitan Communication Ability: Effective Visual Impairment: Limited Hearing Ability: Normal Digital Field Service Technician Required: No Beliefs That Will Affect Care: None marital status: / Current Living Situation: Alone current occupational status: retired How many Children do You have: 2 Feels Safe at Home: Yes Safety Concerns: Feels Safe At This Time Childhood Exposure to Second-Hand Smoke: Yes Diet: regular caffeine: Yes (drinks coffee daily ) during the past year weight has: decreased > 10 lbs Dental Care, Regularly: No Physical Activity Frequency: Does not Exercise Seatbelt Use: always Sunscreen Use: Yes Assistive Devices: Denture - Upper, Denture - Lower, Glasses and Walker Physical Exam Physical Exam: Exam obtained with aid of in-person telepresenter. General: Well-appearing, no acute distress HEENT: Conjunctivae non-injected, sclerae anicteric, MMM, OP clear. Resp: Respirations nonlabored. Abd: Soft, nontender, nondistended. Ext: No joint warmth or effusions noted. Skin: No rashes or lesions. Neuro: Alert & interactive. Grossly non-focal. Psych: Pleasant, appropriate. Results & Data Vital Signs (Past 12 Hours) Vital Signs Temp Pulse Pulse Resp BP BP Pulse Ox 05/23/24 13:41 82 05/23/24 11:14 36.8 C 80 16 111/66 92 05/23/24 08:10 05/23/24 07:46 36.9 C 75 16 94/62 L 92 05/23/24 07:22 71 05/23/24 04:00 38.0 C H 05/23/24 03:19 38.5 C H 87 18 95/59 L 87/50 L 90 O2 Del Method 05/23/24 13:41 05/23/24 11:14 Room Air 05/23/24 08:10 Room Air 05/23/24 07:46 Room Air 05/23/24 07:22 05/23/24 04:00 05/23/24 03:19 Room Air Diagnostic Findings Diagnostics: 05/22 CXR 1. No acute process within the chest. 2. A trace right pleural effusion has improved. Micro Data: 05/22 BCx x2: PEND 05/22 RVP: neg 05/22 stool PCR panel: C. diff gene positive, toxin A positive; other pathogens neg prior 04/06/24 stool C. diff gene positive, toxin negative Antibiotic Summary: fidaxomicin (05/22 present) (2) Aortic stenosis Cardiac valve disease etiology: etiology unspecified Qualified Code(s): I35.0 - Nonrheumatic aortic (valve) stenosis (4) Diarrhea Diarrhea type: unspecified type Qualified Code(s): R19.7 - Diarrhea, unspecified
[2024-05-23] MEDS: METHENAMINE HIPPURATE 1 GM TAB PO SCH (16:57)
[2024-05-23 18:28] LABS: Appearance Urine Clear (Clear); Bacteria Urine Automated None Seen (None Seen); Bilirubin Urine Negative (Negative); Blood Urine Negative (Negative); Cast Urine Automated 0-2 /lpf (0-2); Color Urine Dark Yellow; Epithelial Cell Urine Auto 0-2 /hpf (0-2); Glucose Urine UA Negative (Negative); Ketones Urine Trace (Negative); Leukocyte Esterase Urine Trace (Negative); Nitrite Urine Negative (Negative); Protein Urine 1+ (Negative); Specific Gravity Urine 1.037 (1.000-1.030); Urobilinogen Urine Negative (Negative); pH Urine 5.5 (4.5-7.5)
[2024-05-24 09:09] LABS: Hematocrit (blood only) 32.3 % (37.0-47.0); Hemoglobin 10.3 g/dl (12.0-16.0); Mean Corpuscular Hemoglobin 28.3 pg (25.0-34.0); Mean Corpuscular Hgb Conc 31.9 g/dL (32.0-36.0); Mean Corpuscular Volume 88.7 fL (80.0-100.0); Mean Platelet Volume 10.8 fL (9.4-12.4); Platelet Count 196 K/uL (130-400); RDW Coefficient of Variation 14.9 % (11.5-14.5); RDW Standard Deviation 48.8 fL (36.4-46.3); Red Blood Count 3.64 M/uL (4.20-5.40)
[2024-05-24 09:28] LABS: BUN Creatinine Ratio 24.1 (10-20); Calcium 8.7 mg/dl (8.6-10.3); Creatinine Clr Calc Pharmacy 53.7 ml/min; Est GFR (African American) 83.7 ml/min; Est GFR (Non-African American) 72.2 ml/min; Magnesium 1.8 mg/dl (1.7-2.4); Potassium 3.7 mmol/L (3.5-5.1)
--- NOTE | 2024-05-24 13:11 | Hospitalist Progress Note ---
Date of Service May 24, 2024 Assessment & Plan (1) Recurrent Clostridioides difficile infection: Plan: Recurrent Cdiff after completing extended course of Dificid at the end of April and Rebyota suppository on May 09 presented with hypotension/fever/diarrhea. COVID contact but Biofire negative Stool biofire +cdiff gene/toxin Infectious disease consulted - Dificid BID through 05/31, then Dificid 200mg every other day for at least 20 days (05/31- 06/19) then continue 200mg every other day indefinitely until outpatient GI followup - Referral to GI for fecal transplant - When improving/discharging, recommend to administer bezlotoxumab 10 mg/kg IV x1 dose in outpatient infusion center - scheduled for 05/27 @ 1330. - If requiring systemic antibiotics in the future, recommend starting vancomycin 125 mg PO once daily for prophylaxis and then continue for 7 days after completion of abx Previous provider discussed with [facility] -If improving, to continue current course - if worsened consider tx to tertiary w/ fecal transplant capabilities vs surgery consult for colectomy. Blood cultures: no growth at 24 hours (2) Severe aortic stenosis: Plan: Planned TAVR in June Currently euvolemic on exam, no concern for HF, bolus fluids as needed for hypotension. Holding off additional IVF for now (was given 250cc x 2 in ER, additional 250cc on admission). Cautious use w/ her significant aortic stenosis which she is to have repair for this upcoming June - defer to tAVR team if they will want to continue with current admission (3) Hypokalemia: Plan: 3.0, PO replacement ordered. Mag 1.9, wnl. A Continue BID mag replacement K and Mag replete Plan VTE Prophylaxis - Lovenox SQ while inpatient Updated daughter 05/23 and 05/24 - confims dificid has been ordered, unsure it has been shipped yet. Admission and Anticipated Discharge Date Admission Date: May 22, 2024 Supervising Physician Co-Signing Physician Notes Attending Attestation: Chart reviewed, care plan d/w MAUDE Cuellar. I agree w/ the deshpande components of her documentation. Gary Gerber MD Subjective Patient sitting up in bed, feeling better. Bummed that she is in the hospital since [place] Had about 10 stools total yesterday. 2 stools from midnight to ~930 this morning, but she feels like they are getting more formed, passing more gas. good appetite Tele - SR PACs/PVCs 70-80s Review of Systems Review of Systems: All systems reviewed & are unremarkable except as noted in Subjective Physical Exam Physical Exam: General: NAD, VS as above Resp: normal respiratory effort, lungs clear to auscultation. Port in chest. CV: RRR, + blowing murmur Abd: normal bowel sounds, non tender, no hepatosplenomegaly Extremities: Moves all extremities, no edema Neuro: A&O x3, Skin: intact, no lesions noted Results & Data Results & Data Vital Signs (Past 12 Hours) Vital Signs Temp Pulse Pulse Resp BP Pulse Ox O2 Del Method 05/24/24 11:10 36.8 C 90 20 103/61 91 Room Air 05/24/24 08:15 Room Air 05/24/24 07:49 36.8 C 71 20 132/74 96 Room Air 05/24/24 07:15 76 05/24/24 02:45 36.5 C 73 18 98/61 L 94 Room Air Laboratory Results CBC, chemistry and mag reviewed PG Care Time/CCT Total # of Minutes Spent Total Time Spent with Patient: Total time spent is greater than 50% in coordination of care (as documented) at patient's floor/unit and/or counseling patient: Coding Level of Care Code 55554 SUB INP/OBS CARE 3/50MIN Diagnoses Recurrent Clostridioides difficile infection A49.8 Severe aortic stenosis I35.0 Hypokalemia E87.6
--- NOTE | 2024-05-25 12:35 | Discharge Summary ---
Discharge Summary Date of Service May 25, 2024 Principal Dx & Hospital Course #1 = Principal Diagnosis (1) Recurrent Clostridioides difficile infection: Recurrent Cdiff after completing extended course of Dificid at the end of April and Rebyota suppository on May 09 presented with hypotension/fever/diarrhea. COVID contact but Biofire negative Stool biofire +cdiff gene/toxin Infectious disease consulted - Dificid BID through 05/31, then Dificid 200mg every other day for at least 20 days (05/31- 06/19) then continue 200mg every other day indefinitely until outpatient GI followup - Referral to GI for fecal transplant - When improving/discharging, recommend to administer bezlotoxumab 10 mg/kg IV x1 dose in outpatient infusion center - scheduled for 05/27 @ 1330. - If requiring systemic antibiotics in the future, recommend starting vancomycin 125 mg PO once daily for prophylaxis and then continue for 7 days after completion of abx Previous provider discussed with [facility] -If improving, to continue current course - if worsened consider tx to tertiary w/ fecal transplant capabilities vs surgery consult for colectomy. Blood cultures: no growth at 48 hours Referral to [facility] for Fecal transplant (Yayo does not pr eform this anymore) Ambulatory case management referral - Talita Gallegos Local GI referral to [facility] Updated PCP on plan day of discharge (2) Severe aortic stenosis: Planned TAVR in June Currently euvolemic on exam, no concern for HF, bolus fluids as needed for hypotension. Holding off additional IVF for now (was given 250cc x 2 in ER, additional 250cc on admission). Cautious use w/ her significant aortic stenosis which she is to have repair for this upcoming June - defer to tAVR team if they will want to continue with current admission - patient aware to notify TAVR team about recent discharge (3) Hypokalemia: 3.0, PO replacement ordered. Mag 1.9, wnl. A Continue BID mag replacement K and Mag replete Plan Dispo: discharge to home today Updated daughter 05/23 and 05/24 Notes For Next Care Provider Patient admitted with recurrent C.diff. Improving on dificid, monoclonal antibody infusion scheduled for 05/27. Prolonged dificid course per ID. Referall to [facility] for FMT. Blood cultures pending Medication Changes From Visit prolonged dificid course Admission HPI Per Admitting Provider Lizeth Henry is a 78 year old female who presents to the ER with fever 102.8 degrees and watery diarrhea. She has had many episodes of c. diff with treatment including fecal transplants. Most recently she was diagnosed with recurrent c. diff at the beginning of April. She was diagnosed was treated with a prolonged course of tapering Dificid and Rebyota following treatment. She reports finishi ng the Dificid taper 2 weeks ago. She was doing well until today when she had a recurrent fever this morning and the watery diarrhea restarted. No respiratory, gastrointestinal or urinary symptoms. No recent courses of antibiotics. Discharge Exam General: NAD, VS as above Resp: normal respiratory effort, lungs clear to auscultation. Port in chest. CV: RRR, + blowing murmur Abd: normal bowel sounds, non tender, no hepatosplenomegaly Extremities: Moves all extremities, no edema Neuro: A&O x3, Skin: intact, no lesions noted Updated Medication List Medication Instructions Recorded Confirmed Type cholecalciferol (vitamin D3) 50 2,000 units PO QAM 07/27/18 05/22/24 History mcg (2,000 unit) capsule multivitamin 1 tab PO BID 08/21/20 05/22/24 History vitamin B complex 1 tab PO QAM 09/27/20 05/22/24 History ascorbic acid (vitamin C) 500 mg 1,000 mg PO BID 12/28/20 05/22/24 History tablet (Vitamin C) nicotine (polacrilex) 4 mg gum 4 mg buccal Q4H PRN Nicotine 02/08/21 05/22/24 History (Nicorette) Dependence duloxetine 60 mg capsule,delayed 120 mg (2 x 60 mg) PO QAM #180 caps 03/16/23 05/22/24 Rx release (Cymbalta) sodium chloride 2 % eye drops 1 drp ophthalmic (eye) HS 10/23/23 05/22/24 History (Jorge Luis 128) naloxone 4 mg/actuation nasal 4 mg intranasal DIRECTED PRN 11/30/23 05/22/24 Rx spray (Narcan) overdose #2 ea ferrous sulfate 325 mg (65 mg 650 mg PO BID 01/26/24 05/22/24 History iron) tablet (iron) triamterene 37.5 1 tab PO DAILY PRN weight gain #30 02/11/24 05/22/24 Rx mg-hydrochlorothiazide 25 mg tablet tabs gabapentin 600 mg tablet 600 mg PO TID 03/28/24 05/22/24 History melatonin 5 mg tablet 5 mg PO HS 04/06/24 05/22/24 History famotidine 10 mg tablet (Acid 10 mg PO BID #60 tabs 04/09/24 05/22/24 Rx Screen [employer]her (famotidine)) magnesium chloride 71.5 mg 71.5 mg PO DAILY #30 tabs 04/10/24 05/22/24 Rx (magnesium chloride) tablet,delayed release (Slow-Mag) mirtazapine 15 mg tablet (Remeron) 15 mg PO HS #90 tabs 04/18/24 05/22/24 Rx oxycodone-acetaminophen 7.5 mg-325 1 tab PO Q6H PRN pain #90 tabs 04/21/24 05/22/24 Rx mg tablet (Percocet) methenamine hippurate 1 gram 1 g PO DAILY #90 tabs 04/26/24 05/22/24 Rx tablet (Hiprex) fentanyl 37.5 mcg/hour transdermal 1 patch transdermal Q72H #10 ea 05/04/24 05/22/24 Rx patch fidaxomicin 200 mg tablet (Dificid) See Rx Instructions .Route 05/24/24 Rx .COMPLEX #90 tabs Hospital Stay Data Consultations 05/22/24 14:59 ED Decision to Admit Stat 05/22/24 18:22 Consult Infectious Diseases Routine Pending Results Patient Have Any Pending Studies at Discharge: Yes (blood cultures ) Discharge Instructions Given to Patient (Per Discharging Provider) Ms. Henry, You were hospitalized after having a fever and return of diarrhea that was found to be recurrent c.diff. You were seen by infectious disease who recommended an extended course of dificid, the monoclonal antibody infusion and referral to another fecal transplant. Thankfully the diarrhea has improved and we did not have to transfer for you urgent fecal transplant. Going forward/recommendations: * Continue Dificid twice a day through 05/31, then everyother day until your GI says not to. Regardless, this needs to be continued until at least 06/19. * Referral placed to [facility] for local follow up * Referral in the [facility] for fecal transplant. [phone]. They should be contacting you about an appointment. * If you do not hear from anyone or have questions, you have the card for Muriel. She works closely with Talita Van who is going to be your ambulatory sample case porter who can help you navigate through all of these things. * Please notify your TAVR team about your hospitalization and plans for upcoming fecal transplant * Infusion for c.diff is scheduled on Sunday 05/27 @ 130pm. * If you have to take antibiotics in the future recommend starting vancomycin 125 mg PO once daily for prophylaxis and then continue for 7 days after completion of abx You have blood cultures pending at discharge, they are negative at 48 hours, they take 5 days to be finalized. I do not expect them to turn positive but if they do you will be notified. Activity: You can do normal everyday activities as your body allows. Take rest breaks if you feel tired. Do not overexert. Stop activity if you have pain, shortness of breath or feel dizzy. Follow-up appointments: Make an appointment with your primary care physician within one week of discharge. A copy of this summary will be sent to them. Every time you see your primary care physician, or any other doctor, bring your medication list, and a list of questions. CONTACT YOUR PRIMARY CARE PROVIDER if you experience any of the following: Shortness of breath or difficulty breathing Fevers or chills Feeling tired with normal activity or experiencing dizziness or fainting Difficulty following your treatment plan, or difficulty taking medications CALL 911 OR GO TO THE EMERGENCY DEPARTMENT if you experience any of the following: Severe abdominal pain or nausea/vomiting Severe chest pain, or chest pain that radiates (moves) to your jaw or arm Sudden, severe shortness of breath or difficulty breathing Thank you for allowing us to participate in your care. Debo Cuellar PA-C Total Time Total Time Spent Total Time Spent (In Minutes): Time spend day of discharge 40 minutes including direct patient care, medication reconciliation, documentation, review of labs and images, and coordination of care. Coding Level of Care Code 64153 INP/OBS DISCH >30 MIN Diagnoses Recurrent Clostridioides difficile infection A49.8 Severe aortic stenosis I35.0 Hypokalemia E87.6
[2024-05-25] MEDS: HEPARIN 100 UNIT/ML 5ML FLUSH FLUSH PRN (13:47)
== END 2024-05-25 14:22 | disposition home or self-care (01) | DRG 372 ==
LOC: ED 11:10 → 2N 15:13 → SUATTDRO 15:13 → 2N 17:58